=== PATIENT | female | born 1955 | race Hispanic/Latino ===

== ENCOUNTER 2021-02-07 17:39 | Emergency (ER) | payer OTHER ==
--- OUTSIDE RECORDS SUMMARY | 2021-02-07 17:51 | XMS REPORT | Continuity of Care Document ---
:1955 Author Organization [facility] t Address [address] [place] [address] Care Team Providers Name Role Phone Cyrus KAUR Attending Clinician Unknown Attending Clinician Unavailable Otis KAUR Attending Clinician UNKNOWN Attending Clinician Unavailable [facility] Attending Clinician Unavailable Antoinette Herrera MD Attending Clinician Antoinette HERRERA Attending Clinician Unavailable Doctor Unassigned, Name Attending Clinician Unavailable Kaleigh Simmons MD Attending Clinician Kaleigh SIMMONS Attending Clinician Unavailable Francois Eller MD Attending Clinician Catrett ACNP Attending Clinician CATRETT Attending Clinician Unavailable Omar Attending Clinician Rozina Hernandes Attending Clinician Magali KAUR Attending Clinician Beth KAUR Attending Clinician Poornima Andres MD Attending Clinician Shania MORSE Attending Clinician Unavailable JAGUAR Attending Clinician Unavailable TONI Attending Clinician Unavailable TONI Attending Clinician Unavailable Destiny MILLER Attending Clinician Unavailable Francois GIBBONS Attending Clinician Unavailable WOODROW NEWMAN Attending Clinician Unavailable Magali KAUR Admitting Clinician EMERGENCY ROOM Admitting Clinician Unavailable Payers Payer Name Policy Type Policy Number Effective Date Expiration Date [facility] [id number] 2020 (MEDICARE 00:00:00 REPLACEMENT HMO) Problems Condition Condition Condition Status Onset Resolution Last Treating Co mments Source Name Details Category Date Date Treatment Clinician Date Empyema of Empyema of Disease Active 2020-0 U nivers lung lung 8-16 ity of 00:00: Medical Branch Lung Lung Disease Active 2020- Univers abscess abscess 8-16 ity of 00:00: Medical Branch Poor Poor Disease Active 2020- Univers dentition dentition 8-16 ity of 00:: Medical Branch Cough Cough Disease Active 2020- Univers 8-15 ity of 00:00: Medical Branch Hepatic Hepatic Disease Active 2019- Univers steatosis steatosis 8-15 ity of 00:00: Medical Branch MIHAELA (acute MIHAELA (acute Disease Active 2019- U nivers kidney kidney 8-14 ity of injury) injury) 00:00: 00 Medical Branch Obesity Obesity Disease Active 2019- Univers (BMI (BMI 8-11 ity of 30-39.9) 30-39.9) 00:00: Medical Branch Essential Essential Disease Active Uni vers hypertensi hypertensi 8-11 it y of on on 00:00: Medical Branch Other Other Disease Active Univers hyperlipid hyperlipid 8-11 it y of emia emia 00:00: Medical Branch Type 2 Type 2 Disease Active 2019- Univers diabetes diabetes 8-11 ity of mellitus mellitus 00:00: [place] without without 00 Medical complicati complicati Br anch on, on, without without long-term long-term current current use of use of insulin insulin Pleural Pleural Disease Active Overview: Univ ers effusion effusion 8-10 Added ity of 00:00: automatic [place] 00 ally from Medical request Branch for surgery [id number] 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 [place] [facility] Depression Depression Disease Active 0 U nivers 4-21 ity of 00:00: 00 Medical Branch GERD GERD Disease Active Univers (gastroeso (gastroeso 7-16 it y of phageal phageal 00:00: [place] reflux reflux 00 Medical disease) disease) Branch Allergies, Adverse Reactions, Alerts Allergy Allergy Status Severity Reaction(s) Onset Inactive Treating Comm ents Source Name Type Date Date Clinician Ciproflo Propensi Active Nausea 2020-0 Univer s xacin ty to and/or 8-10 ity of adverse Vomiting 00:00: [place] reaction 00 Medical s Branch CIPROFLO DRUG Active N/V 2020-0 Univers XACIN INGREDI 8-10 ity of 00:00: [place] 00 Medical Branch Red Dye Propensi Active Hives 2007-0 Univers ty to 5-15 ity of adverse 00:00: [place] reaction 00 Medical s Branch RED DYE DRUG Active Hives 2007-0 Univers INGREDI 5-15 ity of 00:00: [place] 00 Medical Branch Iodine Propensi Active Hives 2006-0 Univers ty to 1-12 ity of adverse 00:00: [place] reaction 00 Medical s Branch IODINE DRUG Active Hives 2006-0 Univers INGREDI 1-12 ity of 00:00: [place] 00 Medical Branch Codeine Propensi Active Rash 2006-0 Univers ty to 9-03 ity of adverse 00:00: [place] reaction 00 Medical s Branch Ibuprofe Propensi Active Rash 2006-0 Univer s n ty to 9-03 ity of adverse 00:00: [place] reaction 00 Medical s Branch CODEINE DRUG Active Rash 2006-0 Univers INGREDI 9-03 ity of 00:00: [place] 00 Medical Branch IBUPROFE DRUG Active Rash 2006-0 Univers N INGREDI 9-03 ity of 00:00: [place] 00 Medical [place] Social History Social Habit Start Date Stop Date Quantity Comments Source Sex Assigned At [facility] Exposure to Not sure [place] of SARS-CoV-2 [place] [facility] (event) Branch Tobacco use and 2019-12-31 2019-12-31 Former user Universi ty of exposure 00:00:00 00:00:00 [facility] Tobacco Comment 2019-10-26 2019-10-26 quit 25yrs ago Unive rsity of 00:00:00 00:00:00 [facility] Smoking Status Start Date Stop Date Source Former smoker 2019-12-31 00:00:00 2019-12-31 00:00:[address] [facility] Medications Ordered Filled Start Stop Current Ordering Indication Dosage Frequency Signature Comments Components Source Medication Medication Date Date Medication? Clinician (SIG) Name Name lidocaine 2019-03 1.5mL U nivers PF 2% 0-20 10-20 ity of (XYLOCAINE- 20:45: 20:04 [facility]) 00 :00 Medical injection Branch 1.5 mL lidocaine 2019-03 4mL Un noah PF 2% 0-20 10-20 ity of (XYLOCAINE- 20:45: 20:07 [facility]) 00 :00 Medical injection 4 Branch mL triamcinolo 2019-03 40mg Univers ne 0-20 10-20 ity of acetonide 20:45: 20:09 [place] (KENALOG) 00 :00 Medical injection Branch 40 mg lidocaine 2019-03 1.5mL U nivers PF 2% 0-20 10-20 ity of (XYLOCAINE- 20:45: 20:01 [facility]) 00 :00 Medical injection Branch 1.5 mL lidocaine 2019-03 4mL Un noah PF 2% 0-20 10-20 ity of (XYLOCAINE- 20:45: 20:05 [facility]) 00 :00 Medical injection 4 Branch mL triamcinolo 2019-03 40mg Univers ne 0-20 10-20 ity of acetonide 20:45: 20:08 [place] (KENALOG) 00 :00 Medical injection Branch 40 mg triamcinolo 2019-03 40mg 40 mg, Univers ne 0-20 10-20 Intra-sarina ity of acetonide 20:45: 20:08 [place], [place] (KENALOG) 00 :00 ONCE, 1 Medical injection dose, Tue Branc h 40 mg 10/20/20 at 1545, Routine lidocaine 2019-03 No 4mL 4 mL, U nivers PF 2% 0-20 10-20 Intra-sarina ity of (XYLOCAINE- 20:45: 20:05 [facility] as MPF) 00 :00 ONCE NOW, Medical injection 4 1 dose, Branc h mL 10/20/20 at 1545, Routine lidocaine 2019-03 No 1.5mL 1.5 mL, Univers PF 2% 0-20 10-20 Infiltrati ity of (XYLOCAINE- 20:45: 20:01 [place] [facility] 00 :00 NOW, 1 Medical injection dose, Tue Branc h 1.5 mL 12/31/19 at 1545, Routine triamcinolo 2019-03 No 40mg 40 mg, Univers ne 0-20 10-20 Intra-sarina ity of acetonide 20:45: 20:09 [place] (KENALOG) 00 :00 ONCE, 1 Medical injection dose, Tue Branc h 40 mg 12/31/19 at 1545, Routine lidocaine 2019-03 No 4mL 4 mL, U nivers PF 2% 0-20 10-20 Intra-sarina ity of (XYLOCAINE- 20:45: 20:07 [facility] as MPF) 00 :00 ONCE NOW, Medical injection 4 1 dose, Branc h mL 12/31/19 at 1545, Routine lidocaine 2019-03 No 1.5mL 1.5 mL, Univers PF 2% 0-20 10-20 Infiltrati ity of (XYLOCAINE- 20:45: 20:04 [place], ONCE [place] [facility]) 00 :00 NOW, 1 Medical injection dose, Tue Branc h 1.5 mL 12/31/19 at 1545, Routine lidocaine 2019-03 No 1.5mL U nivers PF 2% 0-20 10-20 ity of (XYLOCAINE- 20:45: 20:04 [facility]) 00 :00 Medical injection Branch 1.5 mL lidocaine 2019-03 No 4mL Un noah PF 2% 0-20 10-20 ity of (XYLOCAINE- 20:45: 20:07 [facility]) 00 :00 Medical injection 4 Branch mL triamcinolo 2019- No 40mg Univers ne 0-20 10-20 ity of acetonide 20:45: 20:09 [place] (KENALOG) 00 :00 Medical injection Branch 40 mg lidocaine 2019-03 No 1.5mL U nivers PF 2% 0-20 10-20 ity of (XYLOCAINE- 20:45: 20:01 [facility]) 00 :00 Medical injection Branch 1.5 mL lidocaine 2019-03 No [id number] 4mL Un noah PF 2% 0-20 10-20 ity of (XYLOCAINE- 20:45: 20:05 [place] MPF) 00 :00 Medical injection 4 Branch mL triamcinolo 2019-03- No 40mg Univers ne 0-20 10-20 ity of acetonide 20:45: 20:08 [place] (KENALOG) 00 :00 Medical injection Branch 40 mg triamcinolo 2019-03- No 40mg 40 mg, Univers ne 0-20 10-20 Intra-sarina ity of acetonide 20:45: 20:08 [place], [place] (KENALOG) 00 :00 ONCE, 1 Medical injection dose, Tue Branc h 40 mg 10/20/20 at 1545, Routine lidocaine 2019-03- No 4mL 4 mL, U nivers PF 2% 0-20 10-20 Intra-sarina ity of (XYLOCAINE- 20:45: 20:05 [facility] as MPF) 00 :00 ONCE NOW, Medical injection 4 1 dose, Branc h mL 12/30/20 at 1545, Routine lidocaine 2019-03- No 1.5mL 1.5 mL, Univers PF 2% 0-20 10-20 Infiltrati ity of (XYLOCAINE- 20:45: 20:01 on, ONCE [place] [facility]) 00 :00 NOW, 1 Medical injection dose, Tue Branc h 1.5 mL //20 at 1545, Routine triamcinolo 2019-03- No 40mg 40 mg, Univers ne 0-20 10-20 Intra-sarina ity of acetonide 20:45: 20:09 [place], [place] (KENALOG) 00 :00 ONCE, 1 Medical injection dose, Tue Branc h 40 mg 10/20/20 at 1545, Routine lidocaine 2019-03- No 4mL 4 mL, U nivers PF 2% 0-20 10-20 Intra-sarina ity of (XYLOCAINE- 20:45: 20:07 [place], [place] as MPF) 00 :00 ONCE NOW, Medical injection 4 1 dose, Branc h mL 10/20/20 at 1545, Routine lidocaine 2019-03- No 1.5mL 1.5 mL, Univers PF 2% 0-20 -20 Infiltrati ity of (XYLOCAINE- 20:45: 20:04 [place], ONCE [place] [facility]) 00 :00 NOW, 1 Medical injection dose, Jose Mcfarlane h 1.5 mL 12/31/19 at 1545, Routine FAMOTIDINE 2019-03 Yes Take by Uni vers 20 MG ORAL 0-06 mouth ity of TAB 14:29: daily. [place] [address] Medical Branch FENOFIBRATE 2019-03 Yes 145mg Take 145 U nivers 160 MG ORAL 0-06 mg by ity of TAB 14:29: mouth at [place] [address] bedtime. Medical Branch simvastatin 2019-03 Yes 40mg Take 40 mg Univers 20 mg 0-06 by mouth ity of tablet 14:29: at [place] [address] bedtime. Medical Branch hydroCHLORO 2019- Yes 25mg Take 25 mg Univers thiazide 25 0-06 by mouth ity of mg tablet 14:29: daily. [place] [address] Medical Branch lisinopril 2019-03 Yes 20mg Take 20 mg U nivers 20 mg 0-06 by mouth ity of tablet 14:29: daily. [place] [address] Medical Branch metformin 2019-03 Yes 500mg Take 500 Uni vers HCl 0-06 mg by ity of (METFORMIN 14:29: [place] 2 [place] 04 (two) Medical times Branch daily with meals. FAMOTIDINE 2019-03 Yes Take by Uni vers 20 MG ORAL 0-06 mouth ity of TAB 14:29: daily. [place] [address] Medical Branch FENOFIBRATE 2019-03 Yes 145mg Take 145 U nivers 160 MG ORAL 0-06 mg by ity of TAB 14:29: mouth at [place] [address] bedtime. Medical Branch simvastatin 2019-03 Yes 40mg Take 40 mg Univers 20 mg 0-06 by mouth ity of tablet 14:29: at [place] [address] bedtime. Medical Branch hydroCHLORO 2019- Yes 25mg Take 25 mg Univers thiazide 25 0-06 by mouth ity of mg tablet 14:29: daily. [address] Branch lisinopril 2019-03 Yes 20mg Take 20 mg U nivers 20 mg 0-06 by mouth ity of tablet 14:29: daily. [address] Branch metformin 2019- Yes 500mg Take 500 Uni vers HCl 0-06 mg by ity of (METFORMIN 14:29: [place] 2 [place] 04 (two) Medical times Branch daily with meals. FAMOTIDINE 2019-03 Yes Take by Uni vers 20 MG ORAL 0-06 mouth ity of TAB 14:29: daily. [place] [address] Medical Branch FENOFIBRATE 2019-03 Yes 145mg Take 145 U nivers 160 MG ORAL 0-06 mg by ity of TAB 14:29: mouth at [place] [address] bedtime. Medical Branch simvastatin 2019- Yes 40mg Take 40 mg Univers 20 mg 0-06 by mouth ity of tablet 14:29: at [place] [address] bedtime. Medical Branch hydroCHLORO 2019- Yes 25mg Take 25 mg Univers thiazide 25 0-06 by mouth ity of mg tablet 14:29: daily. [address] Branch lisinopril 2019-03 Yes 20mg Take 20 mg U nivers 20 mg 0-06 by mouth ity of tablet 14:29: daily. [address] metformin 2019-03 Yes 500mg Take 500 Uni vers HCl 0-06 mg by ity of (METFORMIN 14:29: [place] 2 [place] (two) Medical times [place] daily with meals. FAMOTIDINE 2019-03 Yes Take by Uni vers 20 MG ORAL 0-06 mouth ity of TAB 14:29: daily. [address] FENOFIBRATE 2019-03 Yes 145mg Take 145 U nivers 160 MG ORAL 0-06 mg by ity of TAB 14:29: mouth at [place] [address] bedtime. Medical Branch simvastatin 2019- Yes 40mg Take 40 mg Univers 20 mg 0-06 by mouth ity of tablet 14:29: at [place] [address] bedtime. Medical Branch hydroCHLORO 2019- Yes 25mg Take 25 mg Univers thiazide 25 0-06 by mouth ity of mg tablet 14:29: daily. [address] Branch lisinopril 2019-03 Yes 20mg Take 20 mg U nivers 20 mg 0-06 by mouth ity of tablet 14:29: daily. [address] metformin 2019- Yes 500mg Take 500 Uni vers HCl 0-06 mg by ity of (METFORMIN 14:29: [place] (two) Medical times [place] daily with meals. FAMOTIDINE 2019-03 Yes Take by Uni vers 20 MG ORAL 0-06 mouth ity of TAB 14:29: daily. [address] FENOFIBRATE 2019-03 Yes 145mg Take 145 U nivers 160 MG ORAL 0-06 mg by ity of TAB 14:29: mouth at [place] [address] bedtime. Medical Branch simvastatin 2020- Yes 40mg Take 40 mg Univers 20 mg 0-06 by mouth ity of tablet 14:29: at [place] [address] bedtime. Medical Branch hydroCHLORO 2020- Yes 25mg Take 25 mg Univers thiazide 25 0-06 by mouth ity of mg tablet 14:29: daily. [place] [address] Medical Branch lisinopril 2020- Yes 20mg Take 20 mg U nivers 20 mg 0-06 by mouth ity of tablet 14:29: daily. [place] [address] Medical Branch metformin 2019- Yes 500mg Take 500 Uni vers HCl 0-06 mg by ity of (METFORMIN 14:29: [place] (two) Medical times [place] daily with meals. FAMOTIDINE 2019- Yes Take by Uni vers 20 MG ORAL 0-06 mouth ity of TAB 14:29: daily. [place] [address] Medical Branch FENOFIBRATE 2019- Yes 145mg Take 145 U nivers 160 MG ORAL 0-06 mg by ity of TAB 14:29: mouth at [place] [address] bedtime. Medical Branch simvastatin 2019- Yes 40mg Take 40 mg Univers 20 mg 0-06 by mouth ity of tablet 14:29: at [place] [address] bedtime. Medical Branch hydroCHLORO 2019- Yes 25mg Take 25 mg Univers thiazide 25 0-06 by mouth ity of mg tablet 14:29: daily. [place] [address] Medical Branch lisinopril 2019- Yes 20mg Take 20 mg U nivers 20 mg 0-06 by mouth ity of tablet 14:29: daily. [place] [address] Medical Branch metformin 2020- Yes 500mg Take 500 Uni vers HCl 0-06 mg by ity of (METFORMIN 14:29: [place] 2 [place] (two) Medical times [place] daily with meals. FAMOTIDINE 2019- Yes Take by Uni vers 20 MG ORAL 0-06 mouth ity of TAB 14:29: daily. [place] [address] Medical Branch FENOFIBRATE 2019- Yes 145mg Take 145 U nivers 160 MG ORAL 0-06 mg by ity of TAB 14:29: mouth at [place] [address] bedtime. Medical Branch simvastatin 2020- Yes 40mg Take 40 mg Univers 20 mg 0-06 by mouth ity of tablet 14:29: at [place] [address] bedtime. Medical Branch hydroCHLORO 2020- Yes 25mg Take 25 mg Univers thiazide 25 0-06 by mouth ity of mg tablet 14:29: daily. [address] Branch lisinopril 2019- Yes 20mg Take 20 mg U nivers 20 mg 0-06 by mouth ity of tablet 14:29: daily. [address] metformin 2019-03 Yes 500mg Take 500 Uni vers HCl 0-06 mg by ity of (METFORMIN 14:29: mouth 2 [place] (two) Medical times [place] daily with meals. FAMOTIDINE 2019-03 Yes Take by Uni vers 20 MG ORAL 0-06 mouth ity of TAB 14:29: daily. [address] Branch FENOFIBRATE 2019-03 Yes 145mg Take 145 U nivers 160 MG ORAL 0-06 mg by ity of TAB 14:29: mouth at [place] [address] bedtime. Medical Branch simvastatin 2019- Yes 40mg Take 40 mg Univers 20 mg 0-06 by mouth ity of tablet 14:29: at [place] [address] bedtime. Medical Branch hydroCHLORO 2019- Yes 25mg Take 25 mg Univers thiazide 25 0-06 by mouth ity of mg tablet 14:29: daily. [address] lisinopril 2019-03 Yes 20mg Take 20 mg U nivers 20 mg 0-06 by mouth ity of tablet 14:29: daily. [address] metformin 2019-03 Yes 500mg Take 500 Uni vers HCl 0-06 mg by ity of (METFORMIN 14:29: mouth 2 [place]) (two) Medical times [place] daily with meals. FAMOTIDINE 2019-03 Yes Take by Uni vers 20 MG ORAL 0-06 mouth ity of TAB 14:29: daily. [address] FENOFIBRATE 2019- Yes 145mg Take 145 U nivers 160 MG ORAL 0-06 mg by ity of TAB 14:29: mouth at [place] [address] bedtime. Medical Branch simvastatin 2019- Yes 40mg Take 40 mg Univers 20 mg 0-06 by mouth ity of tablet 14:29: at [place] [address] bedtime. Medical Branch hydroCHLORO 2019- Yes 25mg Take 25 mg Univers thiazide 25 0-06 by mouth ity of mg tablet 14:29: daily. [address] lisinopril 2019- Yes 20mg Take 20 mg U nivers 20 mg 0-06 by mouth ity of tablet 14:29: daily. [place] 04 Medical Branch metformin 2020-1 Yes 500mg Take 500 Uni vers HCl 0-06 mg by ity of (METFORMIN 14:29: mouth 2 [place] 04 (two) Medical times Branch daily with meals. ALLOPURINOL 2020-0 Yes 100mg Take 100 U nivers ORAL 9-04 mg by ity of 18:10: mouth [place] 39 daily. Medical Branch ALLOPURINOL 2020-0 Yes 100mg Take 100 U nivers ORAL 9-04 mg by ity of 18:10: mouth [place] 39 daily. Medical Branch ALLOPURINOL 2020-0 Yes 100mg Take 100 U nivers ORAL 9-04 mg by ity of 18:10: mouth [place] 39 daily. Medical Branch ALLOPURINOL 2020-0 Yes 100mg Take 100 U nivers ORAL 9-04 mg by ity of 18:10: mouth [place] 39 daily. Medical Branch ALLOPURINOL 2020-0 Yes 100mg Take 100 U nivers ORAL 9-04 mg by ity of 18:10: mouth [place] 39 daily. Medical Branch ALLOPURINOL 2020-0 Yes 100mg Take 100 U nivers ORAL 9-04 mg by ity of 18:10: mouth [place] 39 daily. Medical Branch ALLOPURINOL 2020-0 Yes 100mg Take 100 U nivers ORAL 9-04 mg by ity of 18:10: mouth [place] 39 daily. Medical Branch ALLOPURINOL 2020-0 Yes 100mg Take 100 U nivers ORAL 9-04 mg by ity of 18:10: mouth [place] 39 daily. Medical Branch ALLOPURINOL 2020-0 Yes 100mg Take 100 U nivers ORAL 9-04 mg by ity of 18:10: mouth [place] 39 daily. Medical Branch ALLOPURINOL 2020-0 Yes 100mg Take 100 U nivers ORAL 9-04 mg by ity of 18:10: mouth [place] 39 daily. Medical Branch ALLOPURINOL 2020-0 Yes 100mg Take 100 U nivers ORAL 9-04 mg by ity of 18:10: mouth [place] 39 daily. Medical Branch ALLOPURINOL 2020-0 Yes 100mg Take 100 U nivers ORAL 9-04 mg by ity of 18:10: mouth [place] 39 daily. Medical Branch ALLOPURINOL 2020-0 Yes 100mg Take 100 U nivers ORAL 9-04 mg by ity of 18:10: mouth [place] 39 daily. Medical Branch FAMOTIDINE 2020-0 Yes Take by Uni vers 20 MG ORAL 8-22 mouth ity of TAB 23:55: daily. [place] [address] Medical Branch FENOFIBRATE 2020-0 Yes 145mg Take 145 U nivers 160 MG ORAL 8-22 mg by ity of TAB 23:55: mouth at [place] [address] bedtime. Medical Branch ALLOPURINOL 2020-0 Yes 100mg Take 100 U nivers ORAL 8-22 mg by ity of 23:55: mouth [place] [address] daily. Medical Branch simvastatin 2020-0 Yes 40mg Take 40 mg Univers 20 mg 8-22 by mouth ity of tablet 23:55: at [place] [address] bedtime. Medical Branch hydroCHLORO 2020-0 Yes 25mg Take 25 mg Univers thiazide 25 8-22 by mouth ity of mg tablet 23:55: daily. [place] [address] Medical Branch lisinopril 2020-0 Yes 20mg Take 20 mg U nivers 20 mg 8-22 by mouth ity of tablet 23:55: daily. [place] [address] Medical Branch metformin 2020-0 Yes 500mg Take 500 Uni vers HCl 8-22 mg by ity of (METFORMIN 23:55: mouth 2 [place]) (two) Medical times Branch daily with meals. FAMOTIDINE 2020-0 Yes Take by Uni vers 20 MG ORAL 8-22 mouth ity of TAB 23:55: daily. [place] [address] Medical Branch FENOFIBRATE 2020-0 Yes 145mg Take 145 U nivers 160 MG ORAL 8-22 mg by ity of TAB 23:55: mouth at [place] [address] bedtime. Medical Branch ALLOPURINOL 2020-0 Yes 100mg Take 100 U nivers ORAL 8-22 mg by ity of 23:55: mouth [place] [address] daily. Medical Branch simvastatin 2020-0 Yes 40mg Take 40 mg Univers 20 mg 8-22 by mouth ity of tablet 23:55: at [place] [address] bedtime. Medical Branch hydroCHLORO 2020-0 Yes 25mg Take 25 mg Univers thiazide 25 8-22 by mouth ity of mg tablet 23:55: daily. [place] [address] Medical Branch lisinopril 2020-0 Yes 20mg Take 20 mg U nivers 20 mg 8-22 by mouth ity of tablet 23:55: daily. [place] [address] Medical Branch metformin 2020-0 Yes 500mg Take 500 Uni vers HCl 8-22 mg by ity of (METFORMIN 23:55: mouth 2 [place]) (two) Medical times Branch daily with meals. FAMOTIDINE 2020-0 Yes Take by Uni vers 20 MG ORAL 8-22 mouth ity of TAB 23:55: daily. [place] [address] Medical Branch FENOFIBRATE 2020-0 Yes 145mg Take 145 U nivers 160 MG ORAL 8-22 mg by ity of TAB 23:55: mouth at [place] [address] bedtime. Medical Branch ALLOPURINOL 2020-0 Yes 100mg Take 100 U nivers ORAL 8-22 mg by ity of 23:55: mouth [place] [address] daily. Medical Branch simvastatin 2020-0 Yes 40mg Take 40 mg Univers 20 mg 8-22 by mouth ity of tablet 23:55: at [place] [address] bedtime. Medical Branch hydroCHLORO 2020-0 Yes 25mg Take 25 mg Univers thiazide 25 8-22 by mouth ity of mg tablet 23:55: daily. [place] [address] Medical Branch lisinopril 2020-0 Yes 20mg Take 20 mg U nivers 20 mg 8-22 by mouth ity of tablet 23:55: daily. [place] [address] Medical Branch metformin 2020-0 Yes 500mg Take 500 Uni vers HCl 8-22 mg by ity of (METFORMIN 23:55: mouth 2 [place]) (two) Medical times Branch daily with meals. FAMOTIDINE 2020-0 Yes Take by Uni vers 20 MG ORAL 8-22 mouth ity of TAB 23:55: daily. [place] [address] Medical Branch FENOFIBRATE 2020-0 Yes 145mg Take 145 U nivers 160 MG ORAL 8-22 mg by ity of TAB 23:55: mouth at [place] [address] bedtime. Medical Branch ALLOPURINOL 2020-0 Yes 100mg Take 100 U nivers ORAL 8-22 mg by ity of 23:55: mouth [place] [address] daily. Medical Branch simvastatin 2020-0 Yes 40mg Take 40 mg Univers 20 mg 8-22 by mouth ity of tablet 23:55: at [place] [address] bedtime. Medical Branch hydroCHLORO 2020-0 Yes 25mg Take 25 mg Univers thiazide 25 8-22 by mouth ity of mg tablet 23:55: daily. [place] [address] Medical Branch lisinopril 2020-0 Yes 20mg Take 20 mg U nivers 20 mg 8-22 by mouth ity of tablet 23:55: daily. [place] [address] Medical Branch metformin 2020-0 Yes 500mg Take 500 Uni vers HCl 8-22 mg by ity of (METFORMIN 23:55: mouth 2 [place]) (two) Medical times Branch daily with meals. FAMOTIDINE 2020-0 Yes Take by Uni vers 20 MG ORAL 8-22 mouth ity of TAB 23:55: daily. [place] [address] Medical Branch FENOFIBRATE 2020-0 Yes 145mg Take 145 U nivers 160 MG ORAL 8-22 mg by ity of TAB 23:55: mouth at [place] [address] bedtime. Medical Branch FAMOTIDINE 2020-0 Yes Take by Uni vers 20 MG ORAL 8-22 mouth ity of TAB 23:55: daily. [place] [address] Medical Branch FENOFIBRATE 2020-0 Yes 145mg Take 145 U nivers 160 MG ORAL 8-22 mg by ity of TAB 23:55: mouth at [place] [address] bedtime. Medical Branch ALLOPURINOL 2020-0 Yes 100mg Take 100 U nivers ORAL 8-22 mg by ity of 23:55: mouth [place] [address] daily. Medical Branch simvastatin 2020-0 Yes 40mg Take 40 mg Univers 20 mg 8-22 by mouth ity of tablet 23:55: at [place] [address] bedtime. Medical Branch hydroCHLORO 2020-0 Yes 25mg Take 25 mg Univers thiazide 25 8-22 by mouth ity of mg tablet 23:55: daily. [place] [address] Medical Branch lisinopril 2020-0 Yes 20mg Take 20 mg U nivers 20 mg 8-22 by mouth ity of tablet 23:55: daily. [place] [address] Medical Branch metformin 2020-0 Yes 500mg Take 500 Uni vers HCl 8-22 mg by ity of (METFORMIN 23:55: mouth 2 [place]) (two) Medical times Branch daily with meals. FAMOTIDINE 2020-0 Yes Take by Uni vers 20 MG ORAL 8-22 mouth ity of TAB 23:55: daily. [place] [address] Medical Branch FENOFIBRATE 2020-0 Yes 145mg Take 145 U nivers 160 MG ORAL 8-22 mg by ity of TAB 23:55: mouth at [place] [address] bedtime. Medical Branch simvastatin 2020-0 Yes 40mg Take 40 mg Univers 20 mg 8-22 by mouth ity of tablet 23:55: at [place] [address] bedtime. Medical Branch hydroCHLORO 2020-0 Yes 25mg Take 25 mg Univers thiazide 25 8-22 by mouth ity of mg tablet 23:55: daily. [place] [address] Medical Branch lisinopril 2020-0 Yes 20mg Take 20 mg U nivers 20 mg 8-22 by mouth ity of tablet 23:55: daily. [address] metformin 2020-0 Yes 500mg Take 500 Uni vers HCl 8-22 mg by ity of (METFORMIN 23:55: mouth 2 [place]) (two) Medical times Branch daily with meals. ALLOPURINOL 2020-0 Yes 100mg Take 100 U nivers ORAL 8-22 mg by ity of 23:55: mouth [place] [address] daily. Medical Branch simvastatin 2020-0 Yes 40mg Take 40 mg Univers 20 mg 8-22 by mouth ity of tablet 23:55: at [place] [address] bedtime. Medical Branch FAMOTIDINE 2020-0 Yes Take by Uni vers 20 MG ORAL 8-22 mouth ity of TAB 23:55: daily. [address] Branch FENOFIBRATE 2020-0 Yes 145mg Take 145 U nivers 160 MG ORAL 8-22 mg by ity of TAB 23:55: mouth at [place] [address] bedtime. Medical Branch simvastatin 2020-0 Yes 40mg Take 40 mg Univers 20 mg 8-22 by mouth ity of tablet 23:55: at [place] [address] bedtime. Medical Branch hydroCHLORO 2020-0 Yes 25mg Take 25 mg Univers thiazide 25 8-22 by mouth ity of mg tablet 23:55: daily. [address] lisinopril 2020-0 Yes 20mg Take 20 mg U nivers 20 mg 8-22 by mouth ity of tablet 23:55: daily. [address] metformin 2020-0 Yes 500mg Take 500 Uni vers HCl 8-22 mg by ity of (METFORMIN 23:55: mouth [place] ORAL) (two) Medical times Branch daily with meals. hydroCHLORO 2020-0 Yes 25mg Take 25 mg Univers thiazide 25 8-22 by mouth ity of mg tablet 23:55: daily. [address] lisinopril 2020-0 Yes 20mg Take 20 mg U nivers 20 mg 8-22 by mouth ity of tablet 23:55: daily. [address] FAMOTIDINE 2020-0 Yes Take by Uni vers 20 MG ORAL 8-22 mouth ity of TAB 23:55: daily. [address] metformin 2020-0 Yes 500mg Take 500 Uni vers HCl 8-22 mg by ity of (METFORMIN 23:55: mouth [place] ORAL) (two) Medical times Branch daily with meals. FENOFIBRATE 2020-0 Yes 145mg Take 145 U nivers 160 MG ORAL 8-22 mg by ity of TAB 23:55: mouth at [place] [address] bedtime. Medical Branch simvastatin 2020-0 Yes 40mg Take 40 mg Univers 20 mg 8-22 by mouth ity of tablet 23:55: at [place] [address] bedtime. Medical Branch hydroCHLORO 2020-0 Yes 25mg Take 25 mg Univers thiazide 25 8-22 by mouth ity of mg tablet 23:55: daily. [address] Branch lisinopril 2020-0 Yes 20mg Take 20 mg U nivers 20 mg 8-22 by mouth ity of tablet 23:55: daily. [address] Branch metformin 2020-0 Yes 500mg Take 500 Uni vers HCl 8-22 mg by ity of (METFORMIN 23:55: mouth [place] ORAL) (two) Medical times Branch daily with meals. FAMOTIDINE 2020-0 Yes Take by Uni vers 20 MG ORAL 8-22 mouth ity of TAB 23:55: daily. [address] Branch FENOFIBRATE 2020-0 Yes 145mg Take 145 U nivers 160 MG ORAL 8-22 mg by ity of TAB 23:55: mouth at [place] [address] bedtime. Medical Branch simvastatin 2020-0 Yes 40mg Take 40 mg Univers 20 mg 8-22 by mouth ity of tablet 23:55: at [place] [address] bedtime. Medical Branch hydroCHLORO 2020-0 Yes 25mg Take 25 mg Univers thiazide 25 8-22 by mouth ity of mg tablet 23:55: daily. [address] lisinopril 2020-0 Yes 20mg Take 20 mg U nivers 20 mg 8-22 by mouth ity of tablet 23:55: daily. [address] metformin 2020-0 Yes 500mg Take 500 Uni vers HCl 8-22 mg by ity of (METFORMIN 23:55: mouth [place] ORAL) (two) Medical times Branch daily with meals. amoxicillin 2020-0 2020- No [id number] 1{tbl} Take 1 Univers -clavulanat 8-22 -06 tablet by it y of e 875-125 00:00: 04:59 mouth [place] mg per 00 :00 every 12 Medical tablet (twelve) Branch hours for 14 days. amoxicillin 2020-0 2020- No [id number] 1{tbl} Take 1 Univers -clavulanat 8-22 09-06 tablet by it y of e 875-125 00:00: 04:59 mouth [place] mg per 00 :00 every 12 Medical tablet (twelve) Branch hours for 14 days. amoxicillin 2020-0 2020- No [id number] 1{tbl} Take 1 Univers -clavulanat 8-22 09-06 tablet by it y of e 875-125 00:00: 04:59 mouth [place] mg per 00 :00 every 12 Medical tablet (twelve) Branch hours for 14 days. amoxicillin 2020-0 2020- No [id number] 1{tbl} Take 1 Univers -clavulanat 8- 09-06 tablet by it y of e 875-125 00:00: 04:59 mouth [place] mg per 00 :00 every 12 Medical tablet (twelve) Branch hours for 14 days. amoxicillin 2020-0 2020- No [id number] 1{tbl} Take 1 Univers -clavulanat 8- 09-06 tablet by it y of e 875-125 00:00: 04:59 mouth [place] mg per 00 :00 every 12 Medical tablet (twelve) Branch hours for 14 days. amoxicillin 2020-0 2020- No [id number] 1{tbl} Take 1 Univers -clavulanat 8- 09-06 tablet by it y of e 875-125 00:00: 04:59 mouth [place] mg per 00 :00 every 12 Medical tablet (twelve) Branch hours for 14 days. amoxicillin 2020-0 2020- No [id number] 1{tbl} Take 1 Univers -clavulanat 8-02 12-06 tablet by it y of e 875-125 00:00: 04:59 mouth [place] mg per 00 :00 every 12 Medical tablet (twelve) Branch hours for 14 days. amoxicillin 2020-0 2020- No [id number] 1{tbl} Take 1 Univers -clavulanat 8- 09-06 tablet by it y of e 875-125 00:00: 04:59 mouth [place] mg per 00 :00 every 12 Medical tablet (twelve) Branch hours for 14 days. amoxicillin 2020-0 2020- No [id number] 1{tbl} Take 1 Univers -clavulanat 8-22 09-06 tablet by it y of e 875-125 00:00: 04:59 mouth [place] mg per 00 :00 every 12 Medical tablet (twelve) Branch hours for 14 days. amoxicillin 2020-0 Yes 1{tbl} 1 tablet, Univers -clavulanat 8-20 Oral, ity of e 18:15: Q12H, [place] (AUGMENTIN) 00 First dose Me dical 875-125 mg on [facility] per tablet 10/31/19 at 1 tablet 1315, Until Discontinu ed, Routine
Reason for Anti-Infec tive: Documented Infection< br>Documen mary kay Infection Site: Other
O ther site: lung
Du ration of Therapy: 7 days lisinopriL 2020-0 Yes 20mg 20 mg, Unive rs (PRINIVIL,Z 8-20 Oral, ity of ESTRIL) 14:00: DAILY, [place] tablet 20 00 First dose Medi heri mg on [place] Branch 10/31/19 at 0900, Until Discontinu ed, Routine simvastatin 2020-0 Yes 20mg 20 mg, Univ ers (ZOCOR) 8-20 Oral, QHS, ity of tablet 20 02:00: First dose [place] mg 00 on Mon Medical 10/30/19 at Branch 2100, Until Discontinu ed, Routine Polyethylen 2020-0 Yes 17g 17 g, Unive rs e Glycol 8-20 Oral, BID, ity o f 3350 01:00: First dose [place] (MIRALAX) 00 on Mon Medical powder 17 g 10/30/19 at Br anch 2000, Until Discontinu ed, Routine metFORMIN 2020-0 Yes 500mg 500 mg, Univ ers (GLUCOPHAGE 8-19 Oral, BID ity of ) tablet 22:00: MEALS, [place] 500 mg 00 First dose Medical on Mon Branch 10/30/19 at 1700, Until Discontinu ed, Routine cyclobenzap 2020-0 Yes 5mg 5 mg, Unive rs rine 8-19 Oral, TID, ity of (FLEXERIL) 19:00: First dose [place] tablet 5 mg 00 on Mon Medica l 10/30/19 at Branch 1400, Until Discontinu ed, Routine hydroCHLORO 2020-0 Yes 25mg 25 mg, Univ ers thiazide 8-19 Oral, ity of (ESIDRIX) 16:15: DAILY, [place] capsule 25 00 First dose Med ical mg on Mon Branch 10/30/19 at 1115, Until Discontinu ed, Routine allopurinoL 2020-0 Yes 100mg 100 mg, Un noah (ZYLOPRIM) 10-29 Oral, ity of tablet 100 16:15: DAILY, [place] mg 00 First dose Medical on Mon Branch 10/30/19 at 1115, Until Discontinu ed, Routine acetaminoph 2020-0 Yes 650mg 650 mg, Un noah en 10-29 Oral, ity of (TYLENOL) 15:53: Q6HPRN, [place] tablet 650 09 Starting Medic al mg Mon Branch 10/30/19 at 1053, Until Discontinu ed, Routine, Pain (scale 1-3) HYDROcodone 2020-0 Yes 1{tbl} 1 tablet, Univers -acetaminop 10-29 Oral, ity of hen (NORCO 15:52: Q6HPRN, [place] 5) 5-325 mg 56 Starting Medi heri tablet 1 Mon tablet 10/30/19 at 1052, Until Discontinu ed, Routine, Pain (scale 7-10) KCL 2019-0 2020- No 30meq 30 mEq, IV Unive rs (POTASSIUM 10-29 Piggyback, it y of CHLORIDE) 08:00: 10:05 ONCE, 1 [place] 30 mEq in 00 :00 dose, Wed Medic al NaCl 0.9% 10/30/19 at Bran ch (NS) 0300, 250 piggyback mL piperacilli 2019-0 2020- No 3.375g 3.375 g, Univers n-tazobacta 10-28 IV ity of m (ZOSYN) 16:45: 18:05 Piggyback, [place] 3.375 g in 00 :17 Q6H ABX, Medic al NaCl 0.9% First dose Bran ch (NS) 100 mL on Mon MINI-BAG 10/29/19 at 1145, Until Discontinu ed, 100 mL
R rafael for Anti-Infec tive: Documented Infection< br>Documen mary kay Infection Site: Respirator y
Durat ion of Therapy: 10 days enoxaparin 2020-0 Yes 40mg 40 mg, Unive rs (LOVENOX) 10-28 Subcutaneo ity of injection 14:00: [place], DAILY, [place] 40 mg 00 First dose Medical on Mon Branch 10/29/19 at 0900, Until Discontinu ed, Routine sennosides 2020-0 Yes 8.6mg 8.6 mg, Uni vers (SENOKOT) 10-28 Oral, ity of tablet 8.6 14:00: DAILY, [place] mg 00 First dose Medical on [facility] 10/29/19 at 0900, Until Discontinu ed, Routine docusate 2020-0 Yes 100mg 100 mg, Unive rs (COLACE) 10-28 Oral, ity of capsule 100 14:00: DAILY, [place] mg 00 First dose Medical on [facility] 10/29/19 at 0900, Until Discontinu ed, Routine Sliding 2020-0 2020- No Subcutaneo Uni vers Scale 10-28 us, TID ity of Insulin - 13:00: 16:12 MEALS+HS, [place] Aspart 00 :15 First dose Medical (NOVOLOG) + on [facility] Fsbg 10/29/19 at Testing 0800, Until Discontinu ed, Routine FENTanyl 2019-0 2020- No 150ug 150 mcg, Uni vers HOSE SPRAYER (5 10-27 Intravenou ity of mcg/mL NS) 22:00: 15:53 s, 30 mL, [place] 00 :26 CONTINUOUS Medical , Starting Branch Mon10/28/19 at 1700, Until 10/30/19 at 1053 ondansetron 2020-0 Yes 4mg 4 mg, Slow Univers (ZOFRAN 10-27 IV Push, ity of (PF)) 21:45: Q6HPRN, [place] injection 4 31 Starting Medi heri mg [facility] 10/28/19 at 1645, Until Discontinu ed, REA, Nausea and Vomiting (N/V) diphenhydrA 2020-0 Yes 25mg 25 mg, Univ ers MINE 10-27 Oral, ity of (BENADRYL) 21:45: Q4HPRN, [place] tablet 25 30 Starting Medica l mg [facility] 10/28/19 at 1645, Until Discontinu ed, Routine, Itching naloxone 2020-0 Yes .1mg 0.1 mg, Univer s (NARCAN) 10-27 Slow IV ity of injection 21:45: Push, [place] 0.1 mg 30 SEE-INSTRU Medical CTIONS, Branch Starting 10/28/19 at 1645, Until Discontinu ed, Routine FENTanyl 2020-0 Yes Slow IV Univer s (SUBLIMAZE) 10-27 Push, ity of 50 mcg/mL 21:45: Routine [place] Load & 30 Medical Rescue dose [place] albuterol 2019- No 2.5mg 2.5 mg, Uni vers (PROVENTIL) 10-27 Inhalation i ty of 2.5 mg /3 21:30: 20:30 , ONCE, 1 [place] mL (0.083 00 :00 dose, Mon Medic al %) 10/28/19 at [place] nebulizer 1630, solution Routine 2.5 mg lactated 2019- No 1000mL at 42 Unive rs ringers IV 10-27 mL/hr, ity of infusion 20:45: 16:12 1,000 mL, [place] 1,000 mL 00 :15 IV Medical Infusion, Branch CONTINUOUS , Starting 10/28/19 at 1545, Until 10/30/19 at 1112, Routine, PACU ondansetron 2019- No 4mg 4 mg, Slow Univers (ZOFRAN 10-27 IV Push, ity of (PF)) 20:30: 20:30 PRN, 1 [place] injection 4 20 :00 dose, Medical mg Starting Branch 10/28/19 at 1530, Until Mon10/28/19 at 1530, Routine, Nausea and Vomiting (N/V), PACU FENTanyl PF 2019- No 25ug 25 mcg, Un noah (SUBLIMAZE 10-27 Slow IV ity o f (PF)) 20:30: 21:40 Push, [place] injection 19 :06 Q5MIN PRN, Medi heri 25 mcg 4 doses, Branch Starting 10/28/19 at 1530, Until 10/28/19 at 1640, Routine, Pain (scale 4-6), PACU bupivacaine 2019-2019- No ONCE INTRA Univers (preserv 10-27 PROCEDURE, ity of free) 19:53: 20:18 Starting [place] (SENSORCAIN 00 :47 Mon Medical E MPF) 0.25 10/28/19 at Br anch % (2.5 1453, mg/mL) Until Mon injection 10/28/19 at 1518, Routine, Intra-op sugammadex 2019-0 2020- No IV Push, Un noah (BRIDION) 10-27 ONCE INTRA ity of injection 19:49: 20:18 PROCEDURE, [place] 00 :47 Starting Medical [facility] 10/28/19 at 1449, Until [facility] 10/28/19 at 1518, Routine, Intra-op HYDROmorphO 2020-0 2020- No ONCE INTRA Univers ne 10-27 PROCEDURE, ity of (DILAUDID) 19:10: 20:18 [place] injection 00 :47 [facility] Medical 10/28/19 at Branch 1410, Until Discontinu ed, Routine, Intra-op acetaminoph 2020-0 2020- No IV Unive rs en ADULT 10-27 Infusion, ity o f (OFIRMEV) 19:09: 20:18 Administer [place] injection 00 :47 over 15 Medical Minutes, Branch ONCE INTRA PROCEDURE, Starting [facility] 10/28/19 at 1409, Until Discontinu ed, Routine, Intra-op ondansetron 2019-0 2020- No Slow IV Un noah (ZOFRAN 10-27 Push, ONCE ity o f (PF)) 19:09: 20:18 INTRA [place] injection 00 :47 PROCEDURE, Medi heri Starting Branch [facility] 10/28/19 at 1409, Until Discontinu ed, Routine, Intra-op calcium 2020-0 2020- No ONCE INTRA Uni vers chloride 10-27 PROCEDURE, ity of 100 mg/mL 18:41: 20:18 Starting [place] (10 %) 00 :47 Mon Medical syringe 10/28/19 at Branch 1341, Until Discontinu ed, Routine, Intra-op PHENYLephri 2020-0 2020- No CONTINUOUS Univers ne 1000 10-27 PRN, ity of mcg/10 mL 17:55: 20:18 Starting [place] in 0.9% 00 :47 Mon Medical NaCl 10/28/19 at Branch syringe 1255, Until Discontinu ed, Routine, Intra-op dexamethaso 2020-0 2020- No IV Push, U nivers ne 10-27 ONCE INTRA ity of (DECADRON 17:15: 20:18 PROCEDURE, [place] PHOSPHATE) 00 :47 Starting Medic al injection [facility] 10/28/19 at 1215, Until Discontinu ed, Routine, Intra-op albuterol 2020-0 2020- No 2.5mg 2.5 mg, Uni vers (PROVENTIL) 10-27 Inhalation i ty of 2.5 mg /3 17:15: 16:20 , ONCE, 1 [place] mL (0.083 00 :00 dose, [facility] Medic al %) 10/28/19 at [place] nebulizer 1215, solution Routine 2.5 mg phenylephri 2019- No ONCE INTRA Univers ne 10-27 PROCEDURE, ity of (VAZCULEP) 16:49: 20:18 Starting [place] injection 00 :47 [facility] Medical 10/28/19 at Branch 1149, Until Discontinu ed, Routine, Intra-op electrolyte 2019- 2020- No CONTINUOUS Univers -A 10-27 PRN, ity of (PLASMALYTE 16:39: 20:18 Starting [place] -A) IV 00 :47 [facility] Medical infusion 10/28/19 at [facility] h 1139, Until Discontinu ed, Routine, Intra-op rocuronium 2019- No IV Push, Un noah (ZEMURON) 10-27 ONCE INTRA ity of injection 16:36: 20:18 PROCEDURE, [place] 00 :[address] [facility] 10/28/19 at 1136, Until Discontinu ed, Routine, Intra-op propofol IV 2019- No Slow IV Un noah infusion 10-27 Push, ONCE ity of 16:36: 20:18 INTRA [place] 00 :47 PROCEDURE, Medical Starting [facility] 10/28/19 at 1136, Until Discontinu ed, Routine, Intra-op lidocaine 2019-2019- No Slow IV Univ ers 1% 10-27 Push, ONCE ity of (XYLOCAINE) 16:36: 20:18 INTRA [place] 100 mg/10 00 :47 PROCEDURE, Medi heri mL (1 %) Starting [place] injection [facility] 10/28/19 at 1136, Until Discontinu ed, Routine, Intra-op FENTanyl PF 2019-0 2020- No Slow IV Un noah (SUBLIMAZE 10-27 Push, ONCE it y of (PF)) 16:36: 20:18 INTRA [place] injection 00 :47 PROCEDURE, Medi heri Starting [facility] 10/28/19 at 1136, Until Discontinu ed, Routine, Intra-op midazolam 2020-0 2020- No IV Push, Uni vers (VERSED) 10-27 ONCE INTRA ity of injection 16:10: 20:18 PROCEDURE, [place] 00 :47 Starting Medical [facility] 10/28/19 at 1110, Until Discontinu ed, Routine, Intra-op lactated 2020-0 2020- No CONTINUOUS Un noah ringers IV 10-27 PRN, ity of infusion 16:08: 20:18 [place] 00 :47 [facility] 10/28/19 at Branch 1108, Until Discontinu ed, Routine, Intra-op piperacilli 2019-0 2020- No 3.375g 3.375 g, Univers n-tazobacta 10-27 IV ity of m (ZOSYN) 15:15: 19:48 Piggyback, [place] 3.375 g in 00 :18 Q6H ABX, Medic al NaCl 0.9% First dose Bran ch (NS) 100 mL (after MINI-BAG last modificati on) on [facility] 10/28/19 at 1015, Until Discontinu ed, 100 mL
Reas on for Anti-Infec tive: Documented Infection< br>Documen mary kay Infection Site: Respirator y
Durat ion of Therapy: 7 days amLODIPine 2019- 2020- No 5mg 5 mg, Unive rs (NORVASC) 10-26 Oral, ity of tablet 5 mg 14:00: 19:48 DAILY, [place] 00 :18 First dose Medical on [facility] 10/27/19 at 0900, Until Discontinu ed, Routine piperacilli 2019-0 2020- No 2.25g 2.25 g, IV Univers n-tazobacta 10-26 Piggyback, i ty of m (ZOSYN) 03:15: 11:22 Q6H ABX, [place] 2.25 g in 00 :43 First dose Medi heri NaCl 0.9% (after Branch (NS) 100 mL last MINI-BAG modificati on) [facility] at 2215, Until Discontinu ed, 100 mL
Reas on for Anti-Infec tive: Documented Infection< br>Documen mary kay Infection Site: Respirator y
Durat ion of Therapy: 7 days NaCl 0.9% 2020-0 2020- No 1000mL at 50 Univ ers (NS) IV 10-25-17 mL/hr, IV ity of infusion 17:00: 19:48 Infusion, [place] 1,000 mL 00 :18 CONTINUOUS Medic al , Starting Branch 10/26/19 at 1200, Until 10/28/19 at 1448, Routine piperacilli 2020-0 2020- No 2.25g 2.25 g, IV Univers n-tazobacta 10-25 Piggyback, i ty of m (ZOSYN) 15:15: 02:29 Q6H ABX, [place] 2.25 g/50 00 :04 First dose Medi heri mL RTU (after Branch last modificati on) on 10/26/19 at 1015, Until Discontinu ed, 50 mL
Reas on for Anti-Infec tive: Documented Infection< br>Documen mary kay Infection Site: Respirator y
Durat ion of Therapy: 7 days ipratropium 0 2020- No 3mL 3 mL, [facility] ers -albuterol 10-25 Inhalation it y of (DUONEB) 00:00: 23:06 , ONCE [place] 0.5 mg-3 00 :00 NOW, 1 Medical mg(2.5 mg dose, Mon Branc h base)/3 mL 10/25/19 at nebulizer 1900, solution 3 Routine mL colchicine 2019-0 2020- No .6mg 0.6 mg, Uni vers (COLCRYS) 10-24 Oral, ity of tablet 0.6 23:00: 15:38 DAILY, [place] mg 00 :26 First dose Medical on Mon Branch 10/25/19 at 1800, Until Discontinu ed, Routine sodium 2020-0 Yes 650mg 650 mg, Univers bicarbonate 10-24 Oral, QID, it y of (ANTACID 17:45: First dose [place] (SODIUM 00 on Mon Medical BICARBONATE 10/25/19 at Br anch )) tablet 1245, 650 mg Until Discontinu ed, Routine NaCl 0.9% 2020-0 2020- No 1000mL at 100 Uni vers (NS) IV 10-24-15 mL/hr, IV ity of infusion 17:15: 16:58 Infusion, [place] 1,000 mL 00 :04 CONTINUOUS Medic al , Starting Branch Mon10/25/19 at 1215, Until 10/26/19 at 1158, Routine NaCl 0.9% 2019-2019- No 100mL at 75 Unive rs (NS) IV 10-24 mL/hr, IV ity of infusion 16:00: 17:09 Infusion, [place] 100 mL 00 :46 CONTINUOUS Medical , Starting Branch Mon10/25/19 at 1100, Until Mon10/25/19 at 1209, Routine aspirin 2020-0 Yes 325mg 325 mg, Univer s tablet 325 10-24 Oral, ity of mg 15:00: DAILY, [place] 00 First dose Medical (after Branch last reorder) on Mon10/25/19 at 1000, Until Discontinu ed, Routine metoprolol 2019- No 50mg 50 mg, Univ ers tartrate 10-24 Oral, BID, ity of (LOPRESSOR) 13:00: 19:48 First dose [place] tablet 50 00 :18 (after Medical mg last Branch modificati on) on Mon10/25/19 at 0800, Until Discontinu ed, Routine ipratropium 2019- No 3mL 3 mL, Univ ers -albuterol 10-23 Inhalation it y of (DUONEB) 20:30: 22:13 , ONCE [place] 0.5 mg-3 00 :00 NOW, 1 Medical mg(2.5 mg dose, [facility] h base)/3 mL 10/24/19 at nebulizer 1530, solution 3 Routine mL aspirin 2019-0 2020- No 325mg 325 mg, Unive rs tablet 325 10-23 Oral, ity of mg 20:30: 19:55 ONCE, 1 [place] 00 :00 dose, [facility] 10/24/19 at Branch 1530, Routine ketorolac 2019- 2020- No 30mg 30 mg, Unive rs (TORADOL) 10-23 Slow IV ity of injection 14:15: 13:15 Push, [place] 30 mg 00 :00 ONCE, 1 Medical dose, [place] Branch 10/24/19 at 0915, Routine
ensemble member approving Restricted medication : [facility] metoprolol 0 2020- No 25mg 25 mg, Univ ers tartrate 10-23 Oral, BID, ity of (LOPRESSOR) 01:00: 12:28 First dose [place] tablet 25 00 :00 on Mon Medical mg 10/23/19 at Branch 2000, Until Discontinu ed, Routine ketorolac 2019- No 30mg 30 mg, [facility] rs (TORADOL) 10-22 Slow IV ity of injection 22:45: 22:20 Push, [place] 30 mg 00 :00 ONCE, 1 Medical dose, [facility] 10/23/19 at 1745, Routine
ensemble member approving Restricted medication : MEGADC diphenhydrA 2020- No 50mg 50 mg, Uni vers MINE 10-22 Slow IV ity of (BENADRYL) 21:44: 19:48 Push, [place] injection 19 :18 Q6HPRN, Medical 50 mg Starting Branch Mon10/23/19 at 1644, Until [facility] 10/28/19 at 1448, Routine, Itching, Rash fenofibrate 2019- No 134mg 134 mg, U nivers micronized 10-22 Oral, ity of (LOFIBRA) 14:00: 19:48 DAILY, [place] capsule 134 00 :18 First dose Me dical mg on Mon [place] 10/23/19 at 0900, Until Discontinu ed famotidine 2019- No 20mg 20 mg, [facility] ers (PEPCID AC) 10-22 Oral, ity of tablet 20 14:00: 19:48 DAILY, [place] mg 00 :18 First dose Medical on [facility] 10/23/19 at 0900, Until Discontinu ed, Routine allopurinoL 2020- No 100mg 100 mg, U nivers (ZYLOPRIM) 10-22 Oral, ity of tablet 100 14:00: 19:48 DAILY, [place] mg 00 :18 First dose Medical on Mon [place] 10/23/19 at 0900, Until Discontinu ed lisinopril 2020- No 20mg 20 mg, [facility] ers (PRINIVIL,Z 10-22 Oral, ity of ESTRIL) 14:00: 12:27 DAILY, [place] tablet 20 00 :10 First dose Medi heri mg on Mon [place] 10/23/19 at 0900, Until Discontinu ed, Routine hydroCHLORO 2020-0 2020- No 25mg 25 mg, Uni vers thiazide 10-22 Oral, ity of (ESIDRIX) 14:00: 12:27 DAILY, [place] tablet 25 00 :10 First dose Medi heri mg on [facility] 10/23/19 at 0900, Until Discontinu ed, Routine morpHINE 2019-0 2020- No 4mg 4 mg, Slow Un noah injection 4 10-22 IV Push, ity of mg 08:47: 19:48 Q6HPRN, [place] 26 :18 Starting Medical [facility] 10/23/19 at 0347, Until [facility] 10/28/19 at 1448, Routine, Pain (scale 7-10) simvastatin 2019- 2020- No 40mg 40 mg, Uni vers (ZOCOR) 10-22 Oral, QHS, ity o f tablet 40 02:00: 19:48 First dose [place] mg 00 :18 on [facility] 10/22/19 at Branch 2100, Until Discontinu ed, Routine heparin 2020- No 5000U 5,000 Univers (porcine) 10-22 Units, ity of injection 01:00: 19:48 Subcutaneo [place] 5,000 Units 00 :18 us, Q12H, Med ical First dose Branch on [facility] 10/22/19 at 2000, Until Discontinu ed, Routine benzonatate 2019-0 2020- No 100mg 100 mg, U nivers (TESSALON 10-21 Oral, ity of PERLES) 22:29: 19:48 Q6HPRN, [place] capsule 100 53 :18 Starting Medi heri mg [facility] 10/22/19 at 1729, Until Mon10/28/19 at 1448, Routine, Cough ondansetron 2019-0 2020- No 4mg 4 mg, Slow Univers (ZOFRAN 10-21 IV Push, ity of (PF)) 22:18: 19:48 Q6HPRN, [place] injection 4 02 :18 Starting Medi heri mg [facility] 10/22/19 at 1718, Until Mon10/28/19 at 1448, Routine, Nausea and Vomiting (N/V) metFORMIN 2019-0 2020- No 500mg 500 mg, Uni vers (GLUCOPHAGE 10-21 Oral, BID it y of ) tablet 22:00: 17:39 MEALS, [place] 500 mg 00 :55 First dose Medical on [facility] 10/22/19 at 1700, Until Discontinu ed tc 2019- 2020- No 6.9mCi 6.9 Univers 99m-albumin 10-21 millicurie i ty of (DRAXIMAGE 18:00: 18:00 , [place] MAA) 00 :00 Intravenou Medical injection s, ONCE, 1 [facility], Routine FLAGYL 500 2019- 2020- No None Univer s MG ORAL TAB 10-21 Entered ity of 17:04: 00:00 [place] 10 :00 [facility] Branch VYTORIN 2019- 2020- No None Univers 12-20 Entered ity of MG ORAL TAB 17:03: 00:00 [place] 38 :00 [facility] Branch temazepam 2019- 2020- No 15mg 15 mg, Unive rs (RESTORIL) 10-21 Oral, ity of capsule 15 04:13: 19:48 QHSPRN, [place] mg 19 :[address] [facility] 10/21/19 at 2313, Until [facility] 10/28/19 at 1448, Routine, Insomnia ondansetron 2020- No 4mg 4 mg, Slow Univers (ZOFRAN 10-20 IV Push, ity of (PF)) 23:45: 22:43 ONCE, 1 [place] injection 4 00 :00 dose, [facility] Med ical mg 10/21/19 at Branch 1845, REA morpHINE 2019- 2020- No 6mg 6 mg, Slow Un noah injection 6 10-20 IV Push, ity of mg 23:45: 22:43 ONCE, 1 [place] 00 :00 dose, [facility] Medical 10/21/19 at Branch 1845, STAT morpHINE 2019-0 2020- No 4mg 4 mg, Slow Un noah injection 4 10-20 IV Push, ity of mg 23:39: 23:38 Q4HPRN, [place] 42 :[address] [facility] 10/21/19 at 1839, Until [facility] 10/22/19 at 1838, Routine, Pain (scale 7-10) HYDROcodone 2020-0 2020- No 1{tbl} 1 tablet, Univers -acetaminop 10-20 Oral, ity of hen (NORCO 23:39: 23:38 Q6HPRN, [place] as 5) 5-325 mg 36 :36 Starting Medi heri tablet 1 Mon [place] tablet 10/21/19 at 1839, Until 10/23/19 at 1838, Routine, Pain (scale 4-6) acetaminoph 2019-0 2020- No 650mg 650 mg, U nivers en 10-20 Oral, ity of (TYLENOL) 23:39: 19:48 Q6HPRN, [place] tablet 650 35 :18 Starting Medic al mg Mon [place] 10/21/19 at 1839, Until Mon10/28/19 at 1448, Routine, Pain (scale 1-3) NaCl 0.9% 2019- 2020- No 1000mL at 999 Uni vers (NS) bolus 10-20- mL/hr, ity of infusion 19:45: 18:52 1,000 mL, [place] as 1,000 mL 00 :00 IV Medical Infusion, [place] ONCE, 1 dose, 10/21/19 at 1445, STAT cyclobenzap 2019-0 2019- No 10mg 10 mg, Uni vers rine 10-20 Oral, ity of (FLEXERIL) 19:45: 18:52 ONCE, 1 [place] as tablet 10 00 :00 dose, Mon Medic al mg 10/21/19 at Branch 1445, Routine morpHINE 2019- 2020- No 4mg 4 mg, Slow Un noah injection 4 10-20-10 IV Push, ity of mg 19:45: 18:52 ONCE, 1 [place] 00 :00 dose, Mon Medical 10/21/19 at Branch 1445, STAT ondansetron 2019-0 2020- No 4mg 4 mg, Slow Univers (ZOFRAN 10-20- IV Push, ity of (PF)) 19:45: 18:52 ONCE, 1 [place] injection 4 00 :00 dose, Mon Med ical mg 10/21/19 at Branch 1445, REA cyclobenzap 2020-0 Yes 10mg Take 10 mg Univers rine 10 mg 6-17 by mouth 3 ity of tablet 00:00: (three) [place] 00 times Medical daily as Branch needed for Muscle Spasms. cyclobenzap 2020-0 Yes 10mg Take 10 mg Univers rine 10 mg 6-17 by mouth 3 ity of tablet 00:00: (three) [place] 00 times Medical daily as Branch needed for Muscle Spasms. cyclobenzap 2020-0 Yes 10mg Take 10 mg Univers rine 10 mg 6-17 by mouth 3 ity of tablet 00:00: (three) [place] 00 times Medical daily as Branch needed for Muscle Spasms. cyclobenzap 2020-0 Yes 10mg Take 10 mg Univers rine 10 mg 6-17 by mouth 3 ity of tablet 00:00: (three) [place] 00 times Medical daily as Branch needed for Muscle Spasms. cyclobenzap 2020-0 Yes 10mg Take 10 mg Univers rine 10 mg 6-17 by mouth 3 ity of tablet 00:00: (three) [place] 00 times Medical daily as Branch needed for Muscle Spasms. cyclobenzap 2020-0 Yes 10mg Take 10 mg Univers rine 10 mg 6-17 by mouth 3 ity of tablet 00:00: (three) [place] 00 times Medical daily as Branch needed for Muscle Spasms. cyclobenzap 2020-0 Yes 10mg Take 10 mg Univers rine 10 mg 6-17 by mouth 3 ity of tablet 00:00: (three) [place] 00 times Medical daily as Branch needed for Muscle Spasms. cyclobenzap 2020-0 Yes 10mg Take 10 mg Univers rine 10 mg 6-17 by mouth 3 ity of tablet 00:00: (three) [place] 00 times Medical daily as Branch needed for Muscle Spasms. cyclobenzap 2020-0 Yes 10mg Take 10 mg Univers rine 10 mg 6-17 by mouth 3 ity of tablet 00:00: (three) [place] 00 times Medical daily as Branch needed for Muscle Spasms. cyclobenzap 2020-0 Yes 10mg Take 10 mg Univers rine 10 mg 6-17 by mouth 3 ity of tablet 00:00: (three) [place] 00 times Medical daily as Branch needed for Muscle Spasms. cyclobenzap 2020-0 Yes 10mg Take 10 mg Univers rine 10 mg 6-17 by mouth 3 ity of tablet 00:00: (three) [place] 00 times Medical daily as Branch needed for Muscle Spasms. cyclobenzap 2020-0 Yes 10mg Take 10 mg Univers rine 10 mg 6-17 by mouth 3 ity of tablet 00:00: (three) [place] 00 times Medical daily as Branch needed for Muscle Spasms. cyclobenzap 2020-0 Yes 10mg Take 10 mg Univers rine 10 mg 6-17 by mouth 3 ity of tablet 00:00: (three) [place] 00 times Medical daily as Branch needed for Muscle Spasms. cyclobenzap 2020-0 Yes 10mg Take 10 mg Univers rine 10 mg 6-17 by mouth 3 ity of tablet 00:00: (three) [place] 00 times Medical daily as Branch needed for Muscle Spasms. cyclobenzap 2020-0 Yes 10mg Take 10 mg Univers rine 10 mg 6-17 by mouth 3 ity of tablet 00:00: (three) [place] 00 times Medical daily as Branch needed for Muscle Spasms. cyclobenzap 2020-0 Yes 10mg Take 10 mg Univers rine 10 mg 6-17 by mouth 3 ity of tablet 00:00: (three) [place] 00 times Medical daily as Branch needed for Muscle Spasms. cyclobenzap 2020-0 Yes 10mg Take 10 mg Univers rine 10 mg 6-17 by mouth 3 ity of tablet 00:00: (three) [place] 00 times Medical daily as Branch needed for Muscle Spasms. cyclobenzap 2020-0 Yes 10mg Take 10 mg Univers rine 10 mg 6-17 by mouth 3 ity of tablet 00:00: (three) [place] 00 times Medical daily as Branch needed for Muscle Spasms. cyclobenzap 2020-0 Yes 10mg Take 10 mg Univers rine 10 mg 6-17 by mouth 3 ity of tablet 00:00: (three) [place] 00 times Medical daily as Branch needed for Muscle Spasms. hydrocodone 2020- No 1{tbl} Take 1-2 Univers -acetaminop 2-28 08-11 Tabs by ity of hen (NORCO 00:00: 00:00 mouth [place] 5) 5-325 mg 00 :00 every 6 Medic al tablet (six) Branch hours as needed for Pain. HYDROCODONE 2020- No Take one U nivers -ACETAMINOP 5-16 08-11 by mouth ity of HEN 5-325 00:00: 00:00 every 4 to [place] MG ORAL TAB 00 :00 6 hours Medic al as needed Branch for pain. CLINDAMYCIN 2019- No 1 tab Q 6h Univers HCL 300 MG -16 10-21 ity of ORAL CAP 00:00: 00:00 [place] 00 :00 Medical Branch VALE-N 2019- No Take one Un noah 50 50-325 10-21 pill every ity of MG ORAL TAB 00:00: 00:00 4 hours as [place] 00 :00 needed for Medical pain Branch Immunizations Ordered Filled Immunization Date Status Comments [facility] e Immunization Name Name Influenza Virus 2019-12-17 Completed Universit y of Vaccine Quad .5 mL 00:00:00 [place] [facility] IM 6+ MO Branch Influenza Virus 2019-12-17 Completed Universit y of Vaccine Quad .5 mL 00:00:00 [place] [facility] IM 6+ MO Branch Influenza Virus 2019-12-17 Completed Universit y of Vaccine Quad .5 mL 00:00:00 [place] [facility] IM 6+ MO Branch Influenza Virus 2019-12-17 Completed Universit y of Vaccine Quad .5 mL 00:00:00 [place] [facility] IM 6+ MO Branch Influenza Virus 2019-12-17 Completed Universit y of Vaccine Quad .5 mL 00:00:00 [place] [facility] IM 6+ MO Branch Influenza Virus 2019-12-17 Completed Universit y of Vaccine Quad .5 mL 00:00:00 [place] [facility] IM 6+ MO Branch Influenza Virus 2019-12-17 Completed Universit y of Vaccine Quad .5 mL 00:00:00 [place] [facility] IM 6+ MO Branch Influenza Virus 2019-12-17 Completed Universit y of Vaccine Quad .5 mL 00:00:00 [place] [facility] IM 6+ MO Branch Influenza Virus 2019-12-17 Completed Universit y of Vaccine Quad .5 mL 00:00:00 [place] [facility] IM 6+ MO Branch Influenza Virus 2019-02-01 Completed Universit y of Vaccine Quad IM 00:00:00 [place] [facility] ical Multi-dose 6+ MO Branch Influenza Virus 2019-02-01 Completed Universit y of Vaccine Quad IM 00:00:00 [place] [facility] ical Multi-dose 6+ MO Branch Influenza Virus 2019-02-01 Completed Universit y of Vaccine Quad IM 00:00:00 [place] [facility] ical Multi-dose 6+ MO Branch Influenza Virus 2019-02-01 Completed Universit y of Vaccine Quad IM 00:00:00 [place] [facility] ical Multi-dose 6+ MO Branch Influenza Virus 2019-02-01 Completed Universit y of Vaccine Quad IM 00:00:00 [place] [facility] ical Multi-dose 6+ MO Branch Influenza Virus 2019-02-01 Completed Universit y of Vaccine Quad IM 00:00:00 [place] [facility] ical Multi-dose 6+ MO Branch Influenza Virus 2019-02-01 Completed Universit y of Vaccine Quad IM 00:00:00 [place] [facility] ical Multi-dose 6+ MO Branch Influenza Virus 2019-02-01 Completed Universit y of Vaccine Quad IM 00:00:00 [place] [facility] ical Multi-dose 6+ MO Branch Influenza Virus 2019-02-01 Completed Universit y of Vaccine Quad IM 00:00:00 [place] [facility] ical Multi-dose 6+ MO Branch Influenza Virus 2019-02-01 Completed Universit y of Vaccine Quad IM 00:00:00 [place] [facility] ical Multi-dose 6+ MO Branch Influenza Virus 2019-02-01 Completed Universit y of Vaccine Quad IM 00:00:00 [place] [facility] ical Multi-dose 6+ MO Branch Influenza Virus 2019-02-01 Completed Universit y of Vaccine Quad IM 00:00:00 [place] [facility] ical Multi-dose 6+ MO Branch Influenza Virus 2019-02-01 Completed Universit y of Vaccine Quad IM 00:00:00 [place] [facility] ical Multi-dose 6+ MO Branch Influenza Virus 2019-02-01 Completed Universit y of Vaccine Quad IM 00:00:00 [place] [facility] ical Multi-dose 6+ MO Branch Influenza Virus 2019-02-01 Completed Universit y of Vaccine Quad IM 00:00:00 [place] [facility] ical Multi-dose 6+ MO Branch Influenza Virus 2019-02-01 Completed Universit y of Vaccine Quad IM 00:00:00 [place] [facility] ical Multi-dose 6+ MO Branch Influenza Virus 2019-02-01 Completed Universit y of Vaccine Quad IM 00:00:00 [place] [facility] ical Multi-dose 6+ MO Branch Influenza Virus 2019-02-01 Completed Universit y of Vaccine Quad IM 00:00:00 [place] [facility] ical Multi-dose 6+ MO Branch Influenza Virus 2019-02-01 Completed Universit y of Vaccine Quad IM 00:00:00 [place] [facility] ical Multi-dose 6+ MO Branch TDAP 2018-07-11 Completed University of 00:00:00 [facility] TDAP 2018-07-11 Completed University of 00:00:00 [facility] TDAP 2018-07-11 Completed University of 00:00:00 [facility] Branch TDAP 2018-07-11 Completed University of 00:00:00 [place] [facility] TDAP 2018-07-11 Completed University of 00:00:00 [place] [facility] TDAP 2018-07-11 Completed University of 00:00:00 [place] [facility] TDAP 2018-07-11 Completed University of 00:00:00 [facility] Branch TDAP 2018-07-11 Completed University of 00:00:00 [place] [facility] TDAP 2018-07-11 Completed University of 00:00:00 [place] [facility] TDAP 2018-07-11 Completed University of 00:00:00 [facility] Branch TDAP 2018-07-11 Completed University of 00:00:00 [facility] Branch TDAP 2018-07-11 Completed University of 00:00:00 [place] [facility] TDAP 2018-07-11 Completed University of 00:00:00 [facility] Branch TDAP 2018-07-11 Completed University of 00:00:00 [facility] Branch TDAP 2018-07-11 Completed University of 00:00:00 [facility] Branch TDAP 2018-07-11 Completed University of 00:00:00 [facility] Branch TDAP 2018-07-11 Completed University of 00:00:00 [facility] Branch TDAP 2018-07-11 Completed University of 00:00:00 [facility] Branch TDAP 2018-07-11 Completed University of 00:00:00 [facility] Influenza Virus 2018-03-02 Completed Universit y of Vaccine 00:00:00 [facility] Influenza Virus 2018-03-02 Completed Universit y of Vaccine 00:00:00 [facility] Influenza Virus 2018-03-02 Completed Universit y of Vaccine 00:00:00 [facility] Influenza Virus 2018-03-02 Completed Universit y of Vaccine 00:00:00 [facility] Influenza Virus 2018-03-02 Completed Universit y of Vaccine 00:00:00 [facility] Influenza Virus 2018-03-02 Completed Universit y of Vaccine 00:00:00 [facility] Influenza Virus 2018-03-02 Completed Universit y of Vaccine 00:00:00 [facility] Influenza Virus 2018-03-02 Completed Universit y of Vaccine 00:00:00 [facility] Influenza Virus 2018-03-02 Completed Universit y of Vaccine 00:00:00 [facility] Influenza Virus 2018-03-02 Completed Universit y of Vaccine 00:00:00 [facility] Influenza Virus 2018-03-02 Completed Universit y of Vaccine 00:00:00 [facility] Influenza Virus 2018-03-02 Completed Universit y of Vaccine 00:00:00 [facility] Influenza Virus 2018-03-02 Completed Universit y of Vaccine 00:00:00 [facility] Influenza Virus 2018-03-02 Completed Universit y of Vaccine 00:00:00 [facility] Influenza Virus 2018-03-02 Completed Universit y of Vaccine 00:00:00 [facility] Influenza Virus 2018-03-02 Completed Universit y of Vaccine 00:00:00 [facility] Influenza Virus 2018-03-02 Completed Universit y of Vaccine 00:00:00 [facility] Influenza Virus 2018-03-02 Completed Universit y of Vaccine 00:00:00 [facility] Influenza Virus 2018-03-02 Completed Universit y of Vaccine 00:00:00 [facility] Influenza Virus 2017-01-05 Completed Universit y of Vaccine (3+ yrs) 00:00:00 [facility] Influenza Virus 2017-01-05 Completed Universit y of Vaccine (3+ yrs) 00:00:00 [facility] Influenza Virus 2017-01-05 Completed Universit y of Vaccine (3+ yrs) 00:00:00 [facility] Influenza Virus 2017-01-05 Completed Universit y of Vaccine (3+ yrs) 00:00:00 [facility] Influenza Virus 2017-01-05 Completed Universit y of Vaccine (3+ yrs) 00:00:00 [facility] Influenza Virus 2017-01-05 Completed Universit y of Vaccine (3+ yrs) 00:00:00 [facility] Influenza Virus 2017-01-05 Completed Universit y of Vaccine (3+ yrs) 00:00:00 [facility] Influenza Virus 2017-01-05 Completed Universit y of Vaccine (3+ yrs) 00:00:00 [facility] Influenza Virus 2017-01-05 Completed Universit y of Vaccine (3+ yrs) 00:00:00 [facility] Influenza Virus 2017-01-05 Completed Universit y of Vaccine (3+ yrs) 00:00:00 [facility] Influenza Virus 2017-01-05 Completed Universit y of Vaccine (3+ yrs) 00:00:00 [facility] Influenza Virus 2017-01-05 Completed Universit y of Vaccine (3+ yrs) 00:00:00 [facility] Influenza Virus 2017-01-05 Completed Universit y of Vaccine (3+ yrs) 00:00:00 [facility] Influenza Virus 2017-01-05 Completed Universit y of Vaccine (3+ yrs) 00:00:00 [facility] Influenza Virus 2017-01-05 Completed Universit y of Vaccine (3+ yrs) 00:00:00 [facility] Influenza Virus 2017-01-05 Completed Universit y of Vaccine (3+ yrs) 00:00:00 [facility] Influenza Virus 2017-01-05 Completed Universit y of Vaccine (3+ yrs) 00:00:00 [facility] Influenza Virus 2017-01-05 Completed Universit y of Vaccine (3+ yrs) 00:00:00 [facility] Influenza Virus 2017-01-05 Completed Universit y of Vaccine (3+ yrs) 00:00:00 [facility] Pneumococcal 2016-05-10 Completed University o f Polysaccharide, 00:00:00 [place] [facility] ical PPSV23 (PNEUMOVAX) Branch Pneumococcal 2016-05-10 Completed University o f Polysaccharide, 00:00:00 [place] [facility] ical PPSV23 (PNEUMOVAX) Branch Pneumococcal 2016-05-10 Completed University o f Polysaccharide, 00:00:00 [place] [facility] ical PPSV23 (PNEUMOVAX) Branch Pneumococcal 2016-05-10 Completed University o f Polysaccharide, 00:00:00 [place] [facility] ical PPSV23 (PNEUMOVAX) Branch Pneumococcal 2016-05-10 Completed University o f Polysaccharide, 00:00:00 [place] [facility] ical PPSV23 (PNEUMOVAX) Branch Pneumococcal 2016-05-10 Completed University o f Polysaccharide, 00:00:00 [place] [facility] ical PPSV23 (PNEUMOVAX) Branch Pneumococcal 2016-05-10 Completed University o f Polysaccharide, 00:00:00 [place] [facility] ical PPSV23 (PNEUMOVAX) Branch Pneumococcal 2016-05-10 Completed University o f Polysaccharide, 00:00:00 [place] [facility] ical PPSV23 (PNEUMOVAX) Branch Pneumococcal 2016-05-10 Completed University o f Polysaccharide, 00:00:00 [place] [facility] ical PPSV23 (PNEUMOVAX) Branch Pneumococcal 2016-05-10 Completed University o f Polysaccharide, 00:00:00 [place] [facility] ical PPSV23 (PNEUMOVAX) Branch Pneumococcal 2016-05-10 Completed University o f Polysaccharide, 00:00:00 [place] [facility] ical PPSV23 (PNEUMOVAX) Branch Pneumococcal 2016-05-10 Completed University o f Polysaccharide, 00:00:00 [place] [facility] ical PPSV23 (PNEUMOVAX) Branch Pneumococcal 2016-05-10 Completed University o f Polysaccharide, 00:00:00 [place] [facility] ical PPSV23 (PNEUMOVAX) Branch Pneumococcal 2016-05-10 Completed University o f Polysaccharide, 00:00:00 [place] [facility] ical PPSV23 (PNEUMOVAX) Branch Pneumococcal 2016-05-10 Completed University o f Polysaccharide, 00:00:00 [place] [facility] ical PPSV23 (PNEUMOVAX) Branch Pneumococcal 2016-05-10 Completed University o f Polysaccharide, 00:00:00 [place] [facility] ical PPSV23 (PNEUMOVAX) Branch Pneumococcal 2016-05-10 Completed University o f Polysaccharide, 00:00:00 [place] [facility] ical PPSV23 (PNEUMOVAX) Branch Pneumococcal 2016-05-10 Completed University o f Polysaccharide, 00:00:00 [place] [facility] ical PPSV23 (PNEUMOVAX) Branch Pneumococcal 2016-05-10 Completed University o f Polysaccharide, 00:00:00 [place] [facility] ical PPSV23 (PNEUMOVAX) Branch Influenza Virus 2015-12-23 Completed Universit y of Vaccine 00:00:00 [facility] Influenza Virus 2015-12-23 Completed Universit y of Vaccine 00:00:00 [facility] Influenza Virus 2015-12-23 Completed Universit y of Vaccine 00:00:00 [facility] Influenza Virus 2015-12-23 Completed Universit y of Vaccine 00:00:00 [facility] Influenza Virus 2015-12-23 Completed Universit y of Vaccine 00:00:00 [facility] Influenza Virus 2015-12-23 Completed Universit y of Vaccine 00:00:00 [facility] Influenza Virus 2015-12-23 Completed Universit y of Vaccine 00:00:00 [facility] Influenza Virus 2015-12-23 Completed Universit y of Vaccine 00:00:00 [facility] Influenza Virus 2015-12-23 Completed Universit y of Vaccine 00:00:00 [facility] Influenza Virus 2015-12-23 Completed Universit y of Vaccine 00:00:00 [facility] Influenza Virus 2015-12-23 Completed Universit y of Vaccine 00:00:00 [facility] Influenza Virus 2015-12-23 Completed Universit y of Vaccine 00:00:00 [facility] Influenza Virus 2015-12-23 Completed Universit y of Vaccine 00:00:00 [facility] Influenza Virus 2015-12-23 Completed Universit y of Vaccine 00:00:00 [facility] Influenza Virus 2015-12-23 Completed Universit y of Vaccine 00:00:00 [facility] Influenza Virus 2015-12-23 Completed Universit y of Vaccine 00:00:00 [facility] Influenza Virus 2015-12-23 Completed Universit y of Vaccine 00:00:00 [facility] Influenza Virus 2015-12-23 Completed Universit y of Vaccine 00:00:00 [facility] Influenza Virus 2015-12-23 Completed Universit y of Vaccine 00:00:00 [facility] Influenza Virus 2015-02-12 Completed Universit y of Vaccine 00:00:00 [facility] Influenza Virus 2015-02-12 Completed Universit y of Vaccine 00:00:00 [facility] Influenza Virus 2015-02-12 Completed Universit y of Vaccine 00:00:00 [facility] Influenza Virus 2015-02-12 Completed Universit y of Vaccine 00:00:00 [facility] Influenza Virus 2015-02-12 Completed Universit y of Vaccine 00:00:00 [facility] Influenza Virus 2015-02-12 Completed Universit y of Vaccine 00:00:00 [facility] Influenza Virus 2015-02-12 Completed Universit y of Vaccine 00:00:00 [facility] Influenza Virus 2015-02-12 Completed Universit y of Vaccine 00:00:00 [facility] Influenza Virus 2015-02-12 Completed Universit y of Vaccine 00:00:00 [facility] Influenza Virus 2015-02-12 Completed Universit y of Vaccine 00:00:00 [facility] Influenza Virus 2015-02-12 Completed Universit y of Vaccine 00:00:00 [facility] Influenza Virus 2015-02-12 Completed Universit y of Vaccine 00:00:00 [facility] Influenza Virus 2015-02-12 Completed Universit y of Vaccine 00:00:00 [facility] Influenza Virus 2015-02-12 Completed Universit y of Vaccine 00:00:00 [facility] Influenza Virus 2015-02-12 Completed Universit y of Vaccine 00:00:00 [facility] Influenza Virus 2015-02-12 Completed Universit y of Vaccine 00:00:00 [facility] Influenza Virus 2015-02-12 Completed Universit y of Vaccine 00:00:00 [facility] Influenza Virus 2015-02-12 Completed Universit y of Vaccine 00:00:00 [facility] Influenza Virus 2015-02-12 Completed Universit y of Vaccine 00:00:00 [facility] Influenza Virus 2014-02-10 Completed Universit y of Vaccine 00:00:00 [facility] Influenza Virus 2014-02-10 Completed Universit y of Vaccine 00:00:00 [facility] Influenza Virus 2014-02-10 Completed Universit y of Vaccine 00:00:00 [facility] Influenza Virus 2014-02-10 Completed Universit y of Vaccine 00:00:00 [facility] Influenza Virus 2014-02-10 Completed Universit y of Vaccine 00:00:00 [facility] Influenza Virus 2014-02-10 Completed Universit y of Vaccine 00:00:00 [facility] Influenza Virus 2014-02-10 Completed Universit y of Vaccine 00:00:00 [facility] Influenza Virus 2014-02-10 Completed Universit y of Vaccine 00:00:00 [facility] Influenza Virus 2014-02-10 Completed Universit y of Vaccine 00:00:00 [facility] Influenza Virus 2014-02-10 Completed Universit y of Vaccine 00:00:00 [facility] Influenza Virus 2014-02-10 Completed Universit y of Vaccine 00:00:00 [facility] Influenza Virus 2014-02-10 Completed Universit y of Vaccine 00:00:00 [facility] Influenza Virus 2014-02-10 Completed Universit y of Vaccine 00:00:00 [facility] Influenza Virus 2014-02-10 Completed Universit y of Vaccine 00:00:00 [facility] Influenza Virus 2014-02-10 Completed Universit y of Vaccine 00:00:00 [facility] Influenza Virus 2014-02-10 Completed Universit y of Vaccine 00:00:00 [facility] Influenza Virus 2014-02-10 Completed Universit y of Vaccine 00:00:00 [facility] Influenza Virus 2014-02-10 Completed Universit y of Vaccine 00:00:00 [facility] Influenza Virus 2014-02-10 Completed Universit y of Vaccine 00:00:00 [facility] Influenza Virus 2013-04-04 Completed Universit y of Vaccine 00:00:00 [facility] Influenza Virus 2013-04-04 Completed Universit y of Vaccine 00:00:00 [facility] Influenza Virus 2013-04-04 Completed Universit y of Vaccine 00:00:00 [facility] Influenza Virus 2013-04-04 Completed Universit y of Vaccine 00:00:00 [facility] Influenza Virus 2013-04-04 Completed Universit y of Vaccine 00:00:00 [facility] Influenza Virus 2013-04-04 Completed Universit y of Vaccine 00:00:00 [facility] Influenza Virus 2013-04-04 Completed Universit y of Vaccine 00:00:00 [facility] Influenza Virus 2013-04-04 Completed Universit y of Vaccine 00:00:00 [facility] Influenza Virus 2013-04-04 Completed Universit y of Vaccine 00:00:00 [facility] Influenza Virus 2013-04-04 Completed Universit y of Vaccine 00:00:00 [facility] Influenza Virus 2013-04-04 Completed Universit y of Vaccine 00:00:00 [facility] Influenza Virus 2013-04-04 Completed Universit y of Vaccine 00:00:00 [facility] Influenza Virus 2013-04-04 Completed Universit y of Vaccine 00:00:00 [facility] Influenza Virus 2013-04-04 Completed Universit y of Vaccine 00:00:00 [facility] Influenza Virus 2013-04-04 Completed Universit y of Vaccine 00:00:00 [facility] Influenza Virus 2013-04-04 Completed Universit y of Vaccine 00:00:00 [facility] Influenza Virus 2013-04-04 Completed Universit y of Vaccine 00:00:00 [facility] Influenza Virus 2013-04-04 Completed [facility]it y of Vaccine 00:00:00 [facility] Influenza Virus 2013-04-04 Completed [facility]it y of Vaccine 00:00:00 [facility] Influenza Virus 2012-01-10 Completed [facility]it y of Vaccine 00:00:00 [facility] Influenza Virus 2012-01-10 Completed [facility]it y of Vaccine 00:00:00 [facility] Influenza Virus 2012-01-10 Completed [facility]it y of Vaccine 00:00:00 [facility] Influenza Virus 2012-01-10 Completed [facility]it y of Vaccine 00:00:00 [facility] Influenza Virus 2012-01-10 Completed [facility]it y of Vaccine 00:00:00 [facility] Influenza Virus 2012-01-10 Completed [facility]it y of Vaccine 00:00:00 [facility] Influenza Virus 2012-01-10 Completed [facility]it y of Vaccine 00:00:00 [facility] Influenza Virus 2012-01-10 Completed [facility]it y of Vaccine 00:00:00 [facility] Influenza Virus 2012-01-10 Completed [facility]it y of Vaccine 00:00:00 [facility] Influenza Virus 2012-01-10 Completed [facility]it y of Vaccine 00:00:00 [facility] Influenza Virus 2012-01-10 Completed [facility]it y of Vaccine 00:00:00 [facility] Influenza Virus 2012-01-10 Completed [facility]it y of Vaccine 00:00:00 [facility] Influenza Virus 2012-01-10 Completed [facility]it y of Vaccine 00:00:00 [facility] Influenza Virus 2012-01-10 Completed [facility]it y of Vaccine 00:00:00 [facility] Influenza Virus 2012-01-10 Completed [facility]it y of Vaccine 00:00:00 [facility] Influenza Virus 2012-01-10 Completed [facility]it y of Vaccine 00:00:00 [facility] Influenza Virus 2012-01-10 Completed [facility]it y of Vaccine 00:00:00 [facility] Influenza Virus 2012-01-10 Completed [facility]it y of Vaccine 00:00:00 [facility] Influenza Virus 2012-01-10 Completed [facility]it y of Vaccine 00:00:00 [facility] Influenza Virus 2010-12-27 Completed [facility]it y of Vaccine 00:00:00 [facility] Influenza Virus 2010-12-27 Completed [facility]it y of Vaccine 00:00:00 [facility] Influenza Virus 2010-12-27 Completed [facility]it y of Vaccine 00:00:00 [facility] Influenza Virus 2010-12-27 Completed [facility]it y of Vaccine 00:00:00 [facility] Influenza Virus 2010-12-27 Completed [facility]it y of Vaccine 00:00:00 [facility] Influenza Virus 2010-12-27 Completed [facility]it y of Vaccine 00:00:00 [facility] Influenza Virus 2010-12-27 Completed [facility]it y of Vaccine 00:00:00 [facility] Influenza Virus 2010-12-27 Completed [facility]it y of Vaccine 00:00:00 [facility] Influenza Virus 2010-12-27 Completed [facility]it y of Vaccine 00:00:00 [facility] Influenza Virus 2010-12-27 Completed [facility]it y of Vaccine 00:00:00 [facility] Influenza Virus 2010-12-27 Completed [facility]it y of Vaccine 00:00:00 [facility] Influenza Virus 2010-12-27 Completed [facility]it y of Vaccine 00:00:00 [facility] Influenza Virus 2010-12-27 Completed [facility]it y of Vaccine 00:00:00 [facility] Influenza Virus 2010-12-27 Completed [facility]it y of Vaccine 00:00:00 [facility] Influenza Virus 2010-12-27 Completed [facility]it y of Vaccine 00:00:00 [facility] Influenza Virus 2010-12-27 Completed [facility]it y of Vaccine 00:00:00 [facility] Influenza Virus 2010-12-27 Completed [facility]it y of Vaccine 00:00:00 [facility] Influenza Virus 2010-12-27 Completed [facility]it y of Vaccine 00:00:00 [facility] Influenza Virus 2010-12-27 Completed [facility]it y of Vaccine 00:00:00 [facility] Influenza Virus 2009-12-23 Completed [facility]it y of Vaccine 00:00:00 [facility] Influenza Virus 2009-12-23 Completed [facility]it y of Vaccine 00:00:00 [facility] Influenza Virus 2009-12-23 Completed [facility]it y of Vaccine 00:00:00 [facility] Influenza Virus 2009-12-23 Completed [facility]it y of Vaccine 00:00:00 [facility] Influenza Virus 2009-12-23 Completed [facility]it y of Vaccine 00:00:00 [facility] Influenza Virus 2009-12-23 Completed [facility]it y of Vaccine 00:00:00 [facility] Influenza Virus 2009-12-23 Completed [facility]it y of Vaccine 00:00:00 [facility] Influenza Virus 2009-12-23 Completed [facility]it y of Vaccine 00:00:00 [facility] Influenza Virus 2009-12-23 Completed [facility]it y of Vaccine 00:00:00 [facility] Influenza Virus 2009-12-23 Completed [facility]it y of Vaccine 00:00:00 [facility] Influenza Virus 2009-12-23 Completed [facility]it y of Vaccine 00:00:00 [facility] Influenza Virus 2009-12-23 Completed [facility]it y of Vaccine 00:00:00 [facility] Influenza Virus 2009-12-23 Completed [facility]it y of Vaccine 00:00:00 [facility] Influenza Virus 2009-12-23 Completed [facility]it y of Vaccine 00:00:00 [facility] Influenza Virus 2009-12-23 Completed [facility]it y of Vaccine 00:00:00 [facility] Influenza Virus 2009-12-23 Completed [facility]it y of Vaccine 00:00:00 [facility] Influenza Virus 2009-12-23 Completed Universit y of Vaccine 00:00:00 [facility] Influenza Virus 2009-12-23 Completed Universit y of Vaccine 00:00:00 [facility] Influenza Virus 2009-12-23 Completed Universit y of Vaccine 00:00:00 [facility] TDAP 2008-05-05 Completed University of 00:00:00 [facility] TDAP 2008-05-05 Completed University of 00:00:00 [facility] TDAP 2008-05-05 Completed University of 00:00:00 [facility] TDAP 2008-05-05 Completed University of 00:00:00 [facility] TDAP 2008-05-05 Completed University of 00:00:00 [facility] TDAP 2008-05-05 Completed University of 00:00:00 [facility] TDAP 2008-05-05 Completed University of 00:00:00 [facility] TDAP 2008-05-05 Completed University of 00:00:00 [facility] TDAP 2008-05-05 Completed University of 00:00:00 [facility] TDAP 2008-05-05 Completed University of 00:00:00 [facility] TDAP 2008-05-05 Completed University of 00:00:00 [facility] TDAP 2008-05-05 Completed University of 00:00:00 [facility] TDAP 2008-05-05 Completed University of 00:00:00 [facility] TDAP 2008-05-05 Completed University of 00:00:00 [facility] TDAP 2008-05-05 Completed University of 00:00:00 [facility] TDAP 2008-05-05 Completed University of 00:00:00 [facility] TDAP 2008-05-05 Completed University of 00:00:00 [facility] TDAP 2008-05-05 Completed University of 00:00:00 [facility] TDAP 2008-05-05 Completed [facility] of 00:00:00 [facility] Influenza Virus 2007-01-16 Completed Universit y of Vaccine 00:00:00 [facility] Influenza Virus 2007-01-16 Completed [facility]it y of Vaccine 00:00:00 [facility] Influenza Virus 2007-01-16 Completed [facility]it y of Vaccine 00:00:00 [facility] Influenza Virus 2007-01-16 Completed [facility]it y of Vaccine 00:00:00 [facility] Influenza Virus 2007-01-16 Completed [facility]it y of Vaccine 00:00:00 [facility] Influenza Virus 2007-01-16 Completed [facility]it y of Vaccine 00:00:00 [facility] Influenza Virus 2007-01-16 Completed [facility]it y of Vaccine 00:00:00 [facility] Influenza Virus 2007-01-16 Completed [facility]it y of Vaccine 00:00:00 [facility] Influenza Virus 2007-01-16 Completed [facility]it y of Vaccine 00:00:00 [facility] Influenza Virus 2007-01-16 Completed [facility]it y of Vaccine 00:00:00 [facility] Influenza Virus 2007-01-16 Completed [facility]it y of Vaccine 00:00:00 [facility] Influenza Virus 2007-01-16 Completed [facility]it y of Vaccine 00:00:00 [facility] Influenza Virus 2007-01-16 Completed [facility]it y of Vaccine 00:00:00 [facility] Influenza Virus 2007-01-16 Completed [facility]it y of Vaccine 00:00:00 [facility] Influenza Virus 2007-01-16 Completed [facility]it y of Vaccine 00:00:00 [facility] Influenza Virus 2007-01-16 Completed [facility]it y of Vaccine 00:00:00 [facility] Influenza Virus 2007-01-16 Completed [facility]it y of Vaccine 00:00:00 [facility] Influenza Virus 2007-01-16 Completed [facility]it y of Vaccine 00:00:00 [facility] Influenza Virus 2007-01-16 Completed Universit y of Vaccine 00:00:00 [facility] Vital Signs Vital Name Observation Time Observation Value Comments Source Systolic blood 2019-12-31 19:27:00 131 mm[Hg] Univer sity of pressure [facility] Diastolic blood 2019-12-31 19:27:00 77 mm[Hg] Unive rsity of pressure [facility] Heart rate 2019-12-31 19:24:00 96 /min [facility] Body temperature 2019-12-31 19:24:00 36.5 Gerri [facility] Respiratory rate 2019-12-31 19:24:00 18 /min [facility] Body weight 2019-12-31 19:24:00 56.065 kg [facility] BMI 2019-12-31 19:24:00 25.83 kg/m2 [facility] ty of [facility] Systolic blood 2019-12-17 15:17:00 160 mm[Hg] Univer sity of pressure [facility] Diastolic blood 2019-12-17 15:17:00 71 mm[Hg] Unive rsity of pressure [facility] Heart rate 2019-12-17 14:29:00 64 /min [facility]i ty of [facility] Body temperature 2019-12-17 14:29:00 37.11 Gerri Univ ersity of [facility] Respiratory rate 2019-12-17 14:29:00 16 /min Univ ersity of [facility] Body height 2019-12-17 14:29:00 147.3 cm Universi ty of [facility] Body weight 2019-12-17 14:29:00 56.926 kg Universi ty of [facility] BMI 2019-12-17 14:29:00 26.23 kg/m2 Universi ty of [facility] Oxygen saturation in 2019-12-17 14:29:00 99 /min University of Arterial blood by [facility] Pulse oximetry Branch Systolic blood 2019-11-15 18:08:00 138 mm[Hg] Univer sity of pressure [facility] Diastolic blood 2019-11-15 18:08:00 76 mm[Hg] Unive rsity of pressure [facility] Heart rate 2019-11-15 18:08:00 89 /min Universi ty of [facility] Body temperature 2019-11-15 18:08:00 36.83 [address] of [facility] Respiratory rate 2019-11-15 18:08:00 14 /min Univ ersity of [facility] Body height 2019-11-15 18:08:00 147.3 cm [facility]i [facility] Body weight 2019-11-15 18:08:00 55.566 kg [facility] BMI 2019-11-15 18:08:00 25.60 kg/m2 Universi ty of [facility] Systolic blood 2019-11-02 22:47:00 165 mm[Hg] Univer sity of pressure [facility] Diastolic blood 2019-11-02 22:47:00 57 mm[Hg] Unive rsity of pressure [facility] Heart rate 2019-11-02 22:47:00 99 /min Universi ty of [facility] Body temperature 2019-11-02 22:47:00 36.61 Gerri [facility] Respiratory rate 2019-11-02 22:47:00 20 /min [facility] Oxygen saturation in 2019-11-02 22:47:00 98 /min [facility] Arterial blood by [facility] Pulse oximetry Branch Body weight 2019-11-02 01:30:00 64.32 kg [facility] BMI 2019-11-02 01:30:00 29.64 kg/m2 [facility] Body height 2019-10-27 02:27:00 147.3 cm [facility] Procedures Procedure Date / Time Performing Clinician Source Performed DISCLOSURE AND CONSENT, 2019-12-31 05:01:00 Doctor Unassigned, N o [facility] MEDICAL AND SURGICAL Name Medical Bra [facility] PROCEDURES XR KNEE 3 VW BILATERAL 2019-12-17 15:36:25 Emanuel Bridges [facility] FLU VACC ([id number]), 6+ 2019-12-17 15:17:05 Emanuel Bridges [facility] MONTHS, IM, QUAD [facility] XR CHEST 2 VW 2019-11-15 16:40:00 Seferino Peng [facility] ASSIGNMENT OF BENEFITS 2019-11-15 16:24:52 Doctor Unassigned, No [facility] Name [facility] XR CHEST 1 VW 2019-11-02 21:57:07 Antonieta Reynoso [facility] XR CHEST 1 2019-11-02 20:08:00 Vasyl [facility] XR CHEST 1 2019-11-02 10:21:07 Neha Garcia [facility] BASIC METABOLIC PANEL 2019-11-02 09:25:00 Waldo Fallon [facility] (NA, K, CL, CO2, Medical Branch GLUCOSE, BUN, CREATININE, CA) CBC WITH DIFF 2019-11-02 09:25:00 Vasyl [facility] XR CHEST 1 VW 2019-11-01 10:34:43 Vasyl [facility] BASIC METABOLIC PANEL 2019-11-01 10:31:00 Vasyl [facility] (NA, K, CL, CO2, [facility] GLUCOSE, BUN, CREATININE, CA) CBC WITH DIFF 2019-11-01 10:31:00 Vasyl [facility] XR CHEST 1 VW 2019 20:50:00 Vasyl [facility] XR CHEST 1 VW 2019 10:54:[facility] 2019 [facility]:26[facility] ([facility], K, CL, CO2, [facility] GLUCOSE, BUN, CREATININE, CA) CBC WITH DIFF 2019 10:26:00 Vasyl [facility] POCT GLUCOSE (AUTOMATED) 2019-10-30 18:32:00 RafitaKendrick C [facility] POCT GLUCOSE (AUTOMATED) 2019-10-30 13:33:00 RafitaJean-PierreKendrick C [facility] XR CHEST 1 VW 2019-10-30 09:07:00 Jose [facility] BASIC METABOLIC PANEL 2019-10-30 06:50:00 Vasyl [facility] (NA, K, CL, CO2, [facility] GLUCOSE, BUN, CREATININE, CA) CBC WITH DIFF 2019-10-30 06:50:00 Vasyl [facility] POCT GLUCOSE (AUTOMATED) 2019-10-30 02:02:00 Kendrick Eller C [facility] POCT GLUCOSE (AUTOMATED) 2019-10-29 23:25:00 Kendrick Eller [facility] POCT GLUCOSE (AUTOMATED) 2019-10-29 18:45:00 Jean-Pierre Ellerenna C [facility] POCT GLUCOSE (AUTOMATED) 2019-10-29 13:53:00 RafitaJean-PierreKendrick C [facility] BASIC METABOLIC PANEL 2019-10-29 11:45:00 Gurinder [facility] (NA, K, CL, CO2, Medical Branch GLUCOSE, BUN, CREATININE, CA) CBC WITH DIFF 2019-10-29 11:45:00 Gurinder [facility] XR CHEST 1 VW 2019-10-29 10:54:00 [facility] ([facility]OM[facility]) 2019-10-29 06:04:00 [facility] ([facility]ATED) 2019-10-29 03:20:00 Kendrick Eller U [facility] POCT GLUCOSE (AUTOMATED) 2019-10-29 02:21:00 Kend[facility]SE (AUTOMATED) 2019-10-28 21:56:00 Kendrick Eller U [facility] CBC WITH DIFF 2019-10-28 21:10:00 [facility] 1 VW 2019-10-28 20:49:00 Gurinder [facility] SURGICAL PATHOLOGY EXAM 2019-10-28 20:29:00 Kend[facility] NERVE BLOCK 2019-10-28 19:55:08 Samples, Ry [facility] PREPARE PACKED RBC 2019-10-28 19:50:49 [facility] 2019-10-28 18:38:15 [facility] INTUBATION 2019-10-28 18:03:32 [facility] CYTO PLEURAL FLUID 2019-10-28 17:18:00 Kendrick Eller [facility] ASPIRATE OR ABSCESS 2019-10-28 17:16:34 Kendrick Eller [facility] CULTURE(AEROBIC/ANAEROBI [facility] C) AFB CULTURE 2019-10-28 17:16:34 Kendrick Eller [facility] FUNGUS (ROUTINE) CULTURE 2019-10-28 17:16:34 Kendrick Eller U [facility] ARTERIAL LINE 2019-10-28 16:20:30 Samples, Ry Stew [facility] HB ABO GROUPING 2019-10-28 16:15:00 Samples, Ry Stew [facility] VIDEO ASSISTED 2019-10-28 15:51:00 Kendrick Eller [facility] THORACOSCOPY Medical Branch PLEURODESIS 2019-10-28 15:51:00 Kendrick Eller [facility] PLEURAL BIOPSY 2019-10-28 15:51:00 Kendrick Eller [facility] POCT GLUCOSE (AUTOMATED) 2019-10-28 12:55:00 Kendrick Eller [facility] XR CHEST 1 VW 2019-10-28 08:40:00 Vasyl [facility] COVID-19 (ID NOW RAPID 2019-10-28 02:36:00 Waldo Fallon [facility] TESTING) [facility] POCT GLUCOSE (AUTOMATED) 2019-10-28 00:25:00 Kendrick Eller U [facility] POCT GLUCOSE (AUTOMATED) 2019-10-27 23:33:00 Kendrick Eller U [facility] PNEUMOCOCCAL ANTIGEN 2019-10-27 22:17:00 Vasyl luda [facility] SPUTUM CULTURE 2019-10-27 21:12:00 Vasyl [facility] POCT GLUCOSE (AUTOMATED) 2019-10-27 18:26:00 Kendrick Eller U [facility] BASIC METABOLIC PANEL 2019-10-27 09:48:00 Lynda Fitzpatrick [facility] (NA, K, CL, CO2, Medical Branch GLUCOSE, BUN, CREATININE, CA) CBC WITH DIFF 2019-10-27 09:47:00 Lynda Fitzpatrick [facility] POCT GLUCOSE (AUTOMATED) 2019-10-27 04:09:00 Kendrick Eller U [facility] POCT GLUCOSE (AUTOMATED) 2019-10-26 21:53:00 Jorden De Los Santos [facility] MRSA / MSSA SCREEN BY 2019-10-26 20:34:00 Sj Dixon [facility] CONTRAST 2019-10-26 16:56:04 Sj Dixon [facility] POCT GLUCOSE (AUTOMATED) 2019-10-26 16:07:00 Jorden De Los Santos [facility] BLOOD CULTURE SCREEN 2019-10-26 15:19:00 Sj Dixon [facility] BLOOD CULTURE SCREEN 2019-10-26 13:30:00 Sj Dixon [facility] BLOOD CULTURE WORKUP 2019-10-26 13:30:00 Sj Dixon [facility] GRAM POSITIVE BLOOD 2019-10-26 13:30:00 Sj Dixon [facility] PATHOGENS DNA [facility] PROBE-AEROBIC POCT GLUCOSE (AUTOMATED) 2019-10-26 13:14:00 Jorden De Los Santos [facility] BASIC METABOLIC PANEL 2019-10-26 08:52:00 Sj Dixon [facility] (NA, K, CL, CO2, Medical Branch GLUCOSE, BUN, CREATININE, CA) CBC WITH DIFF 2019-10-26 08:52:00 Zack [facility] GLYCOSYLATED HEMOGLOBIN 2019-10-26 08:52:00 Lynda Fitzpatrick [facility] (A1C) [facility] C-REACTIVE PROTEIN 2019-10-26 03:37:00 Lynda Fitzpatrick [facility] SEDIMENTATION RATE 2019-10-26 03:37:00 Amari Lyndajosie Hancock [facility] PROCALCITONIN 2019-10-26 03:37:00 Lynda Fitzpatrick [facility] POCT GLUCOSE (AUTOMATED) 2019-10-26 01:15:00 Jorden De Los Santos [facility] CT LUMBAR SPINE WO 2019-10-26 00:47:01 Lynda Fitzpatrick [facility] CONTRAST [facility] URINALYSIS 2019-10-25 18:07:00 Jero Hinkle [facility] PROTEIN CREAT RATIO 2019-10-25 18:07:00 Jero Hinkle [facility] URINE RANDOM [facility] SODIUM, URINE RANDOM 2019-10-25 18:07:00 Jero Hinkle [facility] XR CHEST 1 VW 2019-10-25 16:29:50 Zack [facility] BASIC METABOLIC PANEL 2019-10-25 09:22:00 Lynda Fitzpatrick [facility] (NA, K, CL, CO2, [facility] GLUCOSE, BUN, CREATININE, CA) CBC WITH DIFF 2019-10-25 09:22:00 Lynda Fitzpatrick [facility] XR SHOULDER 2+ VW RIGHT 2019-10-23 19:25:30 Sj Dixon [facility] NM LUNG PERFUSION ONLY 2019-10-22 18:26:53 [facility] W/DOPPLER 2019-10-22 16:03:19 Isidro [facility] COLOR [facility] BILATERAL VENOUS DUPLEX 2019-10-22 15:46:16 Jorden De Los Santos [facility] LOWER EXTREMITY BY Medical Bran h VASCULAR LAB MAGNESIUM 2019-10-22 08:28:00 Isidro [facility] TROPONIN I 2019-10-22 08:28:00 [facility] BAS[facility]OLIC PANEL 2019-10-22 08:28:00 Jorden De Los Santos [facility] (NA, K, CL, CO2, [facility] GLUCOSE, BUN, CREATININE, CA) CBC WITH DIFF 2019-10-22 08:28:00 [facility] PARTIAL 2019-10-22 08:28:00 Magali [facility] [address] [facility] THRMPLAS [facility] N-TERMINAL PRO-BNP 2019-10-22 08:28:00 Isidro [facility] URINALYSIS 2019-10-22 05:15:[address] [facility] THORAX WO CONTRAST 2019-10-21 19:50:29 Earl Hassan [facility] XR CHEST 1 VW COVID 2019-10-21 17:56:31 Earl Hassan [facility] TROPONIN I 2019-10-21 17:41:00 Magali [facility] COMP. METABOLIC PANEL 2019-10-21 17:41:00 Earl Hassan [facility] ([id number]) [facility] CBC WITH DIFF 2019-10-21 17:41:00 Earl Hassan Rozina [facility] PROTHROMBIN TIME / INR 2019-10-21 17:41:00 Jorden De Los Santos [facility] D-DIMER 2019-10-21 17:41:00 Earl Hassan Roz[place] [facility] COVID-19 (ID NOW RAPID 2019-10-21 17:41:00 Earl Hassan [facility] Branch EKG-12 LEAD 2019-10-21 17:36:32 Doctor Unassigned, No [facility] EKG-12 LEAD 2019-10-21 17:23:52 Earl Hassan Rozina [place] [facility] [facility] NOTICE OF PRIVACY 2019-10-21 17:02:16 Doctor Unassigned, No Univ [facility] Name [facility] HOSPITAL ADMISSION 2019-10-21 05:01:00 Doctor Unassigned, No Uni versity [facility] Encounters Start End Encounter Admission Attending Care Care Encounter Source Date/Time Date/Time Type Type Clinicians Facility Department ID 2021-01-26 Outpatient [facility] 09:20:33 [id number] Medical Group 2021-01-24 Outpatient [facility] 15:02:20 [id number] Medical Group 2021-01-24 [facility] 04:37:56 [id number] Medical Group 2021-02-03 2021-02-03 ambulatory [facility]LMLC [facility] [id number] [facility] 00[facility]00 [facility] 2019-12-31 2019-12-31 Office Emanuel Bridges [facility] 1.2.840.11 [id number] Univers 13:50:30 16:55:39 Visit Unknown, Attending PRIMARY 350.1.13.10 ity [facility] 4.2.7.2.686 [facility] [phone] [place] [facility] Branch 2019-12-31 2019-12-31 Outpatient R UNKNOWN, [facility] [id number] Univers 14:30:00 14:30:[address] [facility] 2019-12-31 2019-12-31 Outpatient [facility] [id number] Univers 13:20:00 13:20:[id number] [facility] 2019-12-31 2019-12-31 Ancillary Shilpa Jeong [facility] 1.2. 840.114 [id number] Univers 10:55:07 11:55:07 Visit Benny Herrera PRIMARY 350.1.13.10 [place] [phone] [place] [address] [place] 2019-12-31 2019-12-31 Outpatient R JAVIER [facility] [id number] Univers 11:00:00 11:00:[address] [facility] 2019-12-31 2019-12-31 Orders Doctor JOAQUINA 1.2.840.114 [id number] Univers 00:00:00 00:00:00 Only Unassigned, SHAD 350.1.13.10 ity of [place] [facility] 4.2.7.2.686 Corey as [phone] [address] 2019-12-19 2019-12-19 [facility] 1.2.281.201 [id number] Univers 00:00:00 00:00:00 Emanuel PRIMARY 350.1.13.10 it y [place] [phone] [place] [address] [place] 2019-12-18 2019-12-18 [facility] 1.2.372.174 [id number] Univers 00:00:00 00:00:00 Emanuel PRIMARY 350.1.13.10 it y [place] [phone] [place] [address] [place] 2019-12-17 2019-12-17 [facility] Earline [facility] 1.2.840.114 [id number] Univers 10:20:00 23:59:00 Encounter Jean-Paul Farris PRIMARY 350.1.13.10 it[place] of [place] 4[place] [phone] [place] [address] [place] 2019-12-17 2019-12-17 Office Emanuel Bridges [facility] 1.2.840.11 [id number] Univers 09:18:36 10:13:32 Visit Jean-Paul Simmons PRIMARY 350.1.13.10 ity of [place] [phone] [place] 044 [place] 2019-12-17 2019-12-17 Outpatient [facility] [id number] Univers 09:30:00 09:30:[address] [facility] 2019-12-17 2019-12-17 Outpatient R EARLINE, [facility] [id number] Univers 09:30:00 09:30:00 JEAN-PAUL ity of [facility] 2019-11-15 2019-11-17 Office Rafita, UNIVERS 1.2.840.114 [id number] Univers 12:29:49 11:04:37 Visit Kendrick C Y HEALTH 350.1.13.10 ity of CL[place] [id number] [facility] 185 [address] 2019-11-15 2019-11-15 Hospital [facility], [facility] 1.2.840.114 [id number] Univers 11:28:01 23:59:00 Encounter Seferino Y HEALTH 350.1.13.10 ity of CL[place]ICS [place] [id number] [facility] 807 [address] 2019-11-15 2019-11-15 Outpatient R CATELDAT, [facility] [id number] Univers 00:00:00 00:00:00 SEFERINO ity [facility] 2019-11-15 2019-11-15 Orders Doctor KUNZ 1.2.840.114 [id number] Univers 00:00:00 00:00:00 Only Unassigned, SHAD 350.1.13.10 ity of [place] [facility] 4.2.7.2.686 [place] as [phone] [facility] 009 Branch 2019-11-08 2019-11-08 Outpatient R UNKNOWN, [facility] [id number] Univers 13:00:00 13:00:[address] [facility] 2019-11-04 2019-11-04 Case [facility], [facility] 1.2.840.114 [id number] Univers 00:00:00 00:00:00 Management Seferino Y HEALTH 350.1.13.10 ity of [place] [phone] [facility] [address] 2019-11-04 2019-11-04 Transition Ruma Nelson 1.2.840.114 [id number] Univers 00:00:00 00:00:00 of Care Suad Fitzgerald 350.1.13.10 ity of [place] [id number] [facility] [address] 2019-11-04 2019-11-04 Transition Ruma Nelson 1.2.840.114 [id number] Univers 00:00:00 00:00:00 of Care Suad Fitzgerald 350.1.13.10 ity of [place].2.[place] [id number] [facility] 403 [address] 2019-10-21 2019-11-02 Hospital Earl Hassan 1.2.840.1 14 [id number] Univers 12:12:00 18:55:00 Encounter Jorden De Los Santos 350.1.13.10 ity of [facility] 4.2.7.2.686 [place] [phone] [facility] 089 Branch 2019-10-28 2019-10-28 Anesthesia Red Campos 1.2.840. 114 [id number] Univers 11:21:00 15:18:00 Dmitry Jakobjose Noguera Shad 350.1.1 3.10 ity of Hospital 4.2.7.2.686 [place] [id number] [facility] 103 Branch 2019-10-21 2019-10-21 Emergency X [facility] ERT [id number] Univers 12:03:00 12:03:[address] [facility] 2019-07-09 2019-07-09 Outpatient [facility] [id number] [place] 00:00:00 00:00:00 Health 2019-05-28 2019-05-28 Outpatient [facility] [id number] [place] 09:41:49 09:41:49 Health 2019-05-28 2019-05-28 Outpatient [facility] [id number] [place] 00:00:00 00:00:00 Health 2019-05-14 2019-05-14 Outpatient [facility] [id number] [place] 09:19:03 09:19:03 Health 2019-05-13 2019-05-13 Outpatient [facility] [id number] [place] 00:00:00 00:00:00 Health 2019-04-26 2019-04-26 Outpatient [facility] [id number] [place] 10:45:57 10:45:57 Health 2019-04-16 2019-04-16 Outpatient [facility] [id number] [place] 14:01:21 14:01:21 Health 2019-04-16 2019-04-16 Outpatient [facility] [id number] [place] 12:58:29 12:58:29 Health 2019-04-16 2019-04-16 Outpatient [facility] [id number] [place] 11:20:07 11:20:07 Health 2019-04-15 2019-04-15 Outpatient [facility] [id number] [place] 00:00:00 00:00:00 [facility] 2019-04-15 2019-04-15 Outpatient [facility] [id number] [place] 00:00:00 00:00:00 [facility] 2019-04-12 2019-04-12 Outpatient [facility] [id number] [place] 16:04:17 16:04:17 [facility] 2019-04-12 2019-04-12 Outpatient [facility] [id number] [place] 15:19:36 15:19:36 [facility] 2019-04-12 2019-04-12 Outpatient [facility] [id number] [place] 00:00:00 00:00:00 [facility] 2019-02-01 2019-02-01 Outpatient [facility] [id number] [place] 14:09:59 14:09:59 [facility] 2018-12-28 2018-12-28 Outpatient [facility] [id number] [place] 00:00:00 00:00:00 [facility] 2018-12-06 2018-12-06 Outpatient [facility] [id number] [place] 11:10:58 11:10:58 [facility] 2018-12-06 2018-12-06 Outpatient [facility] [id number] [place] 10:23:54 10:23:54 Health 2018-12-06 2018-12-06 Outpatient [facility] [id number] [place] 00:00:00 00:00:00 [facility] 2018-11-13 2018-11-13 Outpatient [facility] [id number] [place] 00:00:00 00:00:00 [facility] 2018-11-13 2018-11-13 Outpatient [facility] [id number] [place] 00:00:00 00:00:00 [facility] 2018-10-11 2018-10-11 Outpatient [facility] [id number] [place] 10:14:40 10:14:40 [facility] 2018-10-11 2018-10-11 Outpatient [facility] [id number] [place] 09:07:22 09:07:22 [facility] 2018-08-07 2018-08-07 Outpatient [facility] [id number] [place] 10:20:11 10:20:11 [facility] 2018-08-07 2018-08-07 Outpatient [facility] [id number] [place] 08:26:50 08:26:50 [facility] 2018-08-07 2018-08-07 Outpatient [facility] [id number] [place] 00:00:00 00:00:00 [facility] 2018-07-11 2018-07-11 Outpatient [facility] [id number] [place] 14:06:46 14:06:46 [facility] 2018-07-11 2018-07-11 Outpatient [facility] [id number] [place] 13:00:20 13:00:20 [facility] 2018-05-25 2018-05-25 Outpatient [facility] [id number] [place] 00:00:00 00:00:00 [facility] 2018-05-02 2018-05-02 Outpatient [facility] [id number] [place] 00:00:00 00:00:00 [facility] 2018-04-27 2018-04-27 Outpatient [facility] [id number] [place] 08:14:01 08:14:01 [facility] 2018-04-20 2018-04-20 Outpatient [facility] [id number] [place] 00:00:00 00:00:00 [facility] 2018-04-19 2018-04-19 Outpatient [facility] [id number] [place] 00:00:00 00:00:00 [facility] 2018-04-19 2018-04-19 Outpatient [facility] [id number] [place] 00:00:00 00:00:00 [facility] 2018-04-17 2018-04-17 Outpatient [facility] [id number] [place] 08:04:30 08:04:30 [facility] 2018-04-10 2018-04-10 Outpatient [facility] [id number] [place] 08:44:35 08:44:35 [facility] 2018-04-09 2018-04-09 Outpatient [facility] [id number] [place] 00:00:00 00:00:00 [facility] 2018-04-06 2018-04-06 Outpatient [facility] [id number] [place] 09:42:58 09:42:58 Health 2018-04-06 2018-04-06 Outpatient [facility] [id number] [place] 08:34:43 08:34:43 [facility] 2018-04-06 2018-04-06 Outpatient [facility] [id number] [place] 08:02:30 08:02:30 [facility] 2018-03-30 2018-03-30 Outpatient [facility] [id number] [place] 15:32:31 15:32:31 [facility] 2018-03-19 2018-03-19 Outpatient [facility] [id number] [place] 00:00:00 00:00:00 [facility] 2018-03-08 2018-03-08 Outpatient [facility] [id number] [place] 14:32:20 14:32:20 [facility] 2018-03-02 2018-03-02 Outpatient [facility] [id number] [place] 15:51:25 15:51:25 [facility] 2018-03-02 2018-03-02 Outpatient [facility] [id number] [place] 15:09:28 15:09:28 [facility] 2018-02-23 2018-02-23 Outpatient [facility] [id number] [place] 08:06:50 08:06:50 [facility] 2017-12-27 2017-12-27 Outpatient [facility] [id number] [place] 08:56:13 08:56:13 [facility] 2017-11-27 2017-11-27 Outpatient [facility] [id number] [place] 00:00:00 00:00:00 [facility] 2017-11-14 2017-11-14 Outpatient [facility] [id number] [place] 10:56:24 10:56:24 [facility] 2017-10-27 2017-10-27 Outpatient [facility] [id number] [place] 00:00:00 00:00:00 [facility] 2017-08-02 2017-08-02 Outpatient [facility] [id number] [place] 15:01:28 15:01:28 [facility] 2017-07-14 2017-07-14 Outpatient [facility] [id number] [place] 00:00:00 00:00:00 [facility] 2017-07-05 2017-07-05 Outpatient [facility] [id number] [place] 08:53:53 08:53:53 [facility] 2017-06-29 2017-06-29 Outpatient [facility] [id number] [place] 16:08:32 16:08:32 [facility] 2017-06-26 2017-06-26 Outpatient [facility] [id number] [place] 15:40:20 15:40:20 [facility] 2017-05-17 2017-05-17 Outpatient [facility] [id number] [place] 07:11:41 07:11:41 [facility] 2017-05-14 2017-05-14 Emergency [facility] [id number] [place] 09:17:03 09:17:03 [facility] 2017-05-14 2017-05-14 Emergency [facility] [id number] [place] 05:31:45 05:31:45 [facility] 2017-05-08 2017-05-08 Outpatient [facility] [id number] [place] 13:03:57 13:03:57 [facility] 2017-05-08 2017-05-08 Outpatient [facility] [id number] [place] 13:02:09 13:02:09 [facility] 2017-05-03 2017-05-03 Outpatient [facility] [id number] [place] 11:03:53 11:03:53 [facility] 2017-04-19 2017-04-19 Outpatient [facility] [id number] [place] 08:40:33 08:40:33 [facility] 2017-04-07 2017-04-07 Outpatient [facility] [id number] [place] 00:00:00 00:00:00 [facility] 2017-03-10 2017-03-10 Outpatient [facility] [id number] [place] 08:16:47 08:16:47 [facility] 2017-02-22 2017-02-22 Outpatient [facility] [id number] [place] 11:44:22 11:44:22 [facility] 2017-02-22 2017-02-22 Outpatient [facility] [id number] [place] 09:55:28 09:55:28 [facility] 2017-02-15 2017-02-15 Outpatient [facility] [id number] [place] 00:00:00 00:00:00 [facility] 2017-02-08 2017-02-08 Outpatient [facility] [id number] [place] 09:45:43 09:45:43 [facility] 2017-01-05 2017-01-05 Outpatient [facility] [id number] [place] 15:07:06 15:07:06 [facility] 2016-12-28 2016-12-28 Outpatient [facility] [id number] [place] 08:57:15 08:57:15 [facility] 2016-12-13 2016-12-13 Outpatient [facility] [id number] [place] 12:33:16 12:33:16 [facility] 2016-11-22 2016-11-22 Outpatient [facility] [id number] [place] 16:11:27 16:11:27 Health 2016-11-16 2016-11-16 Outpatient [facility] [id number] [place] 11:01:49 11:01:49 Health 2016-11-16 2016-11-16 Outpatient [facility] [id number] [place] 10:19:16 10:19:16 [facility] 2016-11-02 2016-11-02 Outpatient [facility] [id number] [place] 09:52:43 09:52:43 [facility] 2016-11-02 2016-11-02 Outpatient [facility] [id number] [place] 08:28:45 08:28:45 [facility] 2016-10-19 2016-10-19 Outpatient [facility] [id number] [place] 08:52:53 08:52:53 [facility] 2016-09-29 2016-09-29 Outpatient [facility] [id number] [place] 13:20:12 13:20:12 [facility] 2016-09-28 2016-09-28 Outpatient [facility] [id number] [place] 08:57:53 08:57:53 [facility] 2016-09-27 2016-09-27 Outpatient [facility] [id number] [place] 00:00:00 00:00:00 [facility] 2016-08-31 2016-08-31 Outpatient [facility] [id number] [place] 08:04:54 08:04:54 [facility] 2016-08-30 2016-08-30 Outpatient [facility] [id number] [place] 14:14:27 14:14:27 [facility] 2016-08-17 2016-08-17 Outpatient [facility] [id number] [place] 14:09:01 14:09:01 [facility] 2016-08-16 2016-08-16 Outpatient [facility] [id number] [place] 06:46:47 06:46:47 [facility] 2016-08-16 2016-08-16 Outpatient [facility] [id number] [place] 06:27:00 06:27:00 [facility] 2016-08-15 2016-08-15 Outpatient [facility] [id number] [place] 12:55:38 12:55:38 [facility] 2016-08-15 2016-08-15 Emergency [facility] [id number] [place] 04:39:38 04:39:38 [facility] 2016-08-15 2016-08-15 Outpatient [facility] [id number] [place] 00:00:00 00:00:00 [facility] 2016-08-14 2016-08-14 Emergency [facility] [id number] [place] 19:46:32 19:46:32 Health 2016-08-14 2016-08-14 Outpatient [facility] [id number] [place] 18:37:14 18:37:14 [facility] 2016-08-03 2016-08-03 Outpatient [facility] [id number] [place] 09:36:02 09:36:02 [facility] 2016-08-03 2016-08-03 Outpatient [facility] [id number] [place] 08:20:47 08:20:47 [facility] 2016-07-29 2016-07-29 Outpatient [facility] [id number] [place] 10:23:00 10:23:00 [facility] 2016-07-29 2016-07-29 Outpatient [facility] [id number] [place] 00:00:00 00:00:00 [facility] 2016-07-27 2016-07-27 Outpatient [facility] [id number] [place] 10:36:58 10:36:58 Health 2016-07-27 2016-07-27 Outpatient [facility] [id number] [place] 00:00:00 00:00:00 [facility] 2016-07-26 2016-07-26 Outpatient [facility] [id number] [place] 14:14:11 14:14:11 [facility] 2011-05-09 2011-05-10 Emergency X JOSIEMARYLUWILLA, [facility] ERT [id number] Univers 17:40:00 02:37:00 KALANI 3 ity [facility] 2007-07-26 2007-07-27 Emergency X JAGUAR, [facility] ERT [id number] Univers 23:04:00 01:47:00 HAO 2 ity [facility] 2006-10-21 2006-10-21 Emergency X EBONY MUÑOZ [facility] ERT [id number] Univers 09:26:00 20:50:00 EBONY MUÑOZ [address] [facility] 2006-07-10 2006-07-11 Emergency X PAUL, [facility] ERT [id number] Univers 19:52:00 00:18:00 VANI [address] [facility] 2006-03-24 2006-03-25 Emergency X HARLAN GIBBONS [facility] ERT [id number] Univers 20:44:00 00:30:00 7 ity [facility] 2005-11-13 2005-11-13 Emergency X TRENT, [facility] ERT [id number] Univers 01:43:00 14:41:00 [facility] Test Results Result Source Description Time Comments Comments XR KNEE 3 VW 2019-12- No fracture or Univers ity of BILATERAL 06 dislocation Mild [place] 19:10:48 bilateral Branch tricompartmental osteoarthritis Small right joint effusion. RL 4728 RING PHYSICIAN: JEAN-PAUL SIMMONS HISTORY: Osteoarthritis with knee pain TECHNIQUE: 3 standing views of each knee COMPARISON: None available FINDINGS: There is no fracture or dislocation. Small right suprapatellar effusion. Noleft effusion.. Mild bilateral tricompartmental joint space loss witharticular surface hypertrophic change. Medial compartment is most involved.Soft tissues unremarkable. [facility], Radiant Results Inft User - 12/17/2019 2:12 PM CDTORDERING PHYSICIAN: JEAN-APUL GRACESTORY: Osteoarthritis with knee painTECHNIQUE: 3 standing views of each kneeCOMPARISON: None availableFINDINGS:There is no fracture or dislocation. Small right suprapatellar effusion. Noleft effusion.. Mild bilateral tricompartmental joint space loss witharticular surface hypertrophic change. Medial compartment is most involved.Soft tissues unremarkable.IMPRESSIONNo fracture or dislocationMild bilateral tricompartmental osteoarthritisSmall right joint effusion.RL 4728 CHEST 2 VW 2019-11-12. ?No evidence of acute [facility] 04 cardiopulmonary disease. [facility] 19:17:43 2. Interval improvement B ranch of previously noted right-sided pneumothorax. Preliminary Report Dictated by Resident: Juancarlos Brennan ?MD Fly., have reviewed this study and agree withthe above report.EXAM: XR CHEST 2 VW 11/15/2019 11:38 AM HISTORY: 64 years-old Female with follow up lung surgery COMPARISON: CR,11/02/2019 TECHNIQUE: PA and lateral chest radiograph. FINDINGS: The lungs are clear. There is no pleural effusion. Interval improvement ofpreviously noted right-sided pneumothorax, appears now 4 mm. Elevation ofthe right hemidiaphragm likely related to volume loss. The cardiomediastinal silhouette is normal in size. No acute osseous abnormality. [facility], [facility]iant Results Inft User - 11/15/2019 2:18 PM CDTEXAM: XR CHEST 2 VW 11/15/2019 11:38 AMHISTORY: 64 years-old Female with follow up lung surgery COMPARISON: CR,11/02/2019TECHNIQUE: PA and lateral chest radiograph.FINDINGS:The lungs are clear. There is no pleural effusion. Interval improvement ofpreviously noted right-sided pneumothorax, appears now 4 mm. Elevation ofthe right hemidiaphragm likely related to volume loss.The cardiomediastinal silhouette is normal in size.No acute osseous abnormality.IMPRESSION1. No evidence of acute cardiopulmonary disease.2. Interval improvement of previously noted right-sided pneumothorax.Preliminary Report Dictated by Resident: Juancarlos Millan MD., have reviewed this study and agree withthe above report. XR CHEST 1 VW 2019-10- Findings and Impression: [facility] ?Overall, no significant [facility] 23:06:47 change in the Branch intervalsince 11/02/2019 at 15:05. Subcutaneous emphysema at the site of prior chesttube. Persistent right pleural effusion with associated atelectasis.Unchanged right lower lobe opacities. Stable right apical pneumothoraxmeasuring 1.8 cm (distance between parietal and visceral pleura). Heart size is stable. No acute osseous abnormality. PORTABLE CHEST RADIOGRAPH History: Pneumothorax Comparison: 11/02/2019 TECHNIQUE: AP view of the chest. [facility], Radiant Results Inft User - 11/02/2019 6:07 PM CDTPORTABLE CHEST RADIOGRAPHHistory: Pneumothorax Comparison: 11/02/2019TECHNIQUE: AP view of the chest.IMPRESSIONFindings and Impression: Overall, no significant change in the intervalsince 11/02/2019 at 15:05. Subcutaneous emphysema at the site of prior chesttube. Persistent right pleural effusion with associated atelectasis.Unchanged right lower lobe opacities. Stable right apical pneumothoraxmeasuring 1.8 cm (distance between parietal and visceral pleura).Heart size is stable. No acute osseous abnormality. XR CHEST 1 VW 2019-10- FINDINGS-IMPRESSION: [id number]: The right chest [facility] 22:41:17 tube terminates over the Branch right lung apex. Right basilarlung opacity, lung volume loss and unchanged small to moderate pleuraleffusion. Slight interval increase in the size of right apical pneumothoraxfrom 1 to 1.4 cm. The cardiomediastinal silhouette is normal. No acute osseous abnormality is identified. Cholecystectomy clips arenoted. Foci of gas are noted about the right axilla and right lateral chestwall suggestive of subcutaneous emphysema. #[id number]: Interval removal of right-sided chest tube. Mild improvement in right-sided pleural effusion. Right lower lung airspaceopacities. Unchanged small right apical pneumothorax. Right chest wall subcutaneous emphysema. The findings of this study, including pneumothorax, have been discussedwith and acknowledged by Dr. Reynoso in person 11/02/2019 at 5:35 PM withreadback. Preliminary Report Dictated by Resident: Juancarlos Thomas MD., have reviewed this study and agree withthe above report.XR CHEST 1 VW, XR CHEST 1 VW HISTORY: 64 years-old; Female; sp chest tube out COMPARISON: 11/01/2019 [facility], Radiant Results Inft User - 11/02/2019 5:42 PM CDTXR CHEST 1 VW, XR CHEST 1 VWHISTORY: 64 years-old; Female; sp chest tube out COMPARISON: 11/01/2019IMPRESSIONFINDIN GS-IMPRESSION:#[id number]:Th e right chest tube terminates over the right lung apex. Right basilarlung opacity, lung volume loss and unchanged small to moderate pleuraleffusion. Slight interval increase in the size of right apical pneumothoraxfrom 1 to 1.4 cm.The cardiomediastinal silhouette is normal.No acute osseous abnormality is identified. Cholecystectomy clips arenoted. Foci of gas are noted about the right axilla and right lateral chestwall suggestive of subcutaneous emphysema.#[id number]:Interv al removal of right-sided chest tube.Mild improvement in right-sided pleural effusion. Right lower lung airspaceopacities. Unchanged small right apical pneumothorax.Right chest wall subcutaneous emphysema. The findings of this study, including pneumothorax, have been discussedwith and acknowledged by Dr. Reynoso in person 11/02/2019 at 5:35 PM withreadback.Preliminary Report Dictated by Resident: Juancarlos Paez MD., have reviewed this study and agree withthe above report. XR CHEST 1 VW 2019-10- FINDINGS-IMPRESSION: [facility] #[id number]: The right chest [facility] 22:41:17 tube terminates over the Branch right lung apex. Right basilarlung opacity, lung volume loss and unchanged small to moderate pleuraleffusion. Slight interval increase in the size of right apical pneumothoraxfrom 1 to 1.4 cm. The cardiomediastinal silhouette is normal. No acute osseous abnormality is identified. Cholecystectomy clips arenoted. Foci of gas are noted about the right axilla and right lateral chestwall suggestive of subcutaneous emphysema. #[id number]: Interval removal of right-sided chest tube. Mild improvement in right-sided pleural effusion. Right lower lung airspaceopacities. Unchanged small right apical pneumothorax. Right chest wall subcutaneous emphysema. The findings of this study, including pneumothorax, have been discussedwith and acknowledged by Dr. Reynoso in person 11/02/2019 at 5:35 PM withreadback. Preliminary Report Dictated by Resident: Juancarlos Thomas MD., have reviewed this study and agree withthe above report.XR CHEST 1 VW, XR CHEST 1 VW HISTORY: 64 years-old; Female; sp chest tube out COMPARISON: 11/01/2019 [facility], Radiant Results Inft User - 11/02/2019 5:42 PM CDTXR CHEST 1 VW, XR CHEST 1 VWHISTORY: 64 years-old; Female; sp chest tube out [facility]: [facility]:#[id number]:Th e right chest tube terminates over the right lung apex. Right basilarlung opacity, lung volume loss and unchanged small to moderate pleuraleffusion. Slight interval increase in the size of right apical pneumothoraxfrom 1 to 1.4 cm.The cardiomediastinal silhouette is normal.No acute osseous abnormality is identified. Cholecystectomy clips arenoted. Foci of gas are noted about the right axilla and right lateral chestwall suggestive of subcutaneous emphysema.#[id number]:Interv al removal of right-sided chest tube.Mild improvement in right-sided pleural effusion. Right lower lung airspaceopacities. Unchanged small right apical pneumothorax.Right chest wall subcutaneous emphysema. The findings of this study, including pneumothorax, have been discussedwith and acknowledged by Dr. Reynoso in person 11/02/2019 at 5:35 PM withreadback.Preliminary Report Dictated by Resident: Juancarlos Paez MD., have reviewed this study and agree withthe above report. CBC WITH DIFF 2019-11-02 10:59:00 Test Item Value Reference Range Interpretation Comme nts WBC (test code = 6690-2) See_Comment H [A utomated message] The system which ge nerated this result transmit mary kay reference range: 4.30 - 1 1.10 10*3/?L. The reference r carlitos was not used to interpr et this result as normal/abnor mal. RBC (test code = 789-8) See_Comment L [Au tomated message] The system which ge nerated this result transmit mary kay reference range: 3.93 - 5 .25 10*6/?L. The reference r carlitos was not used to interpr et this result as normal/abnor mal. HGB (test code = 718-7) 7.2 g/dL 11.6-15 L HCT (test code = 4544-3) 21.4 % 35.7-45.2 L MCV (test code = 787-2) 92.2 fL 80.6-95.5 MCH (test code = 785-6) 31.0 pg 25.9-32.8 MCHC (test code = 786-4) 33.6 g/dL 31.6-35.1 RDW-SD (test code = 79886-7) 42.8 fL 39-49.9 RDW-CV (test code = 788-0) 13.2 % 12-15.5 PLT (test code = 777-3) See_Comment H [Au tomated message] The system which ge nerated this result transmit mary kay reference range: 166 - 35 8 10*3/?L. The reference range was not used to interpret th is result as normal/abnormal . MPV (test code = 84962-1) 8.9 fL 9.5-12.9 L NRBC/100 WBC (test code = See_Comment [ Automated message] The [id number]) system which ge nerated this result transmit mary kay reference range: 0.0 - 10 .0 /100 WBCs. The reference r carlitos was not used to interpr et this result as normal/abnor mal. NRBC x10^3 (test code = <0.01 See_Comment [Au tomated message] The 7690262796) system which ge nerated this result transmit mary kay reference range: 10*3/?L. The reference range was not u sed to interpret this result as normal/abnormal . GRAN MAT (NEUT) % (test code 72.1 % = 770-8) IMM GRAN % (test code = 5.10 % 8551390330) LYMPH % (test code = 736-9) 14.4 % MONO % (test code = 5905-5) 6.0 % EOS % (test code = 713-8) 2.1 % BASO % (test code = 706-2) 0.3 % GRAN MAT x10^3(ANC) (test 8.96 10*3/uL 1.88-7.09 H code = 0241773226) IMM GRAN x10^3 (test code = 0.63 10*3/uL 0-0.06 H 6198378745) LYMPH x10^3 (test code = 1.79 10*3/uL 1.32-3.29 731-0) MONO x10^3 (test code = 0.75 10*3/uL 0.33-0.92 742-7) EOS x10^3 (test code = 0.26 10*3/uL 0.03-0.39 711-2) BASO x10^3 (test code = 0.04 10*3/uL 0.01-0.07 704-7) Lab Interpretation (test Abnormal code = 85621-9) [facility] METABOLIC PANEL (NA, K, CL, CO2, GLUCOSE, BUN, CREATININE, CA)2019-11-02 10:49:00 Test Item Value Reference Range Interpretation Comments NA (test code = 134 mmol/L 135-145 L 6846260279) K (test code = 3.8 mmol/L 3.5-5 3881738690) CL (test code = 103 mmol/L 98-108 7253007787) CO2 TOTAL (test code = 28 mmol/L 23-31 8485398839) AGAP (test code = 2-16 2760119231) BUN (test code = 14 mg/dL 7-23 1756019176) GLUCOSE (test code = 93 mg/dL 70-110 6891408617) CREATININE (test code = 0.91 mg/dL 0.5-1.04 0841287152) CALCIUM (test code = 8.9 mg/dL 8.6-10.6 9429571715) eGFR Calculation mL/min/1.73m2 (Non-) (test code = 4207659864) eGFR Calculation mL/min/1.73m2 () (test code = 3615628873) SADIE (test code = SADIE) Association of Glomerular Filtration Rate (GFR) and Staging of Kidney Disease* + --+ --+ ------+| GFR (mL/min/1.73 m2) ?| With Kidney Damage ?| ?Without Kidney Damage+ --------+ --------+ +| ?>90 ?| ?Stage one ?| ? Normal ?+ ---+ ---+ -------+| ?60-89 ?| ?Stage two ?| ? Decreased GFR ? + --+ --+ ------+| ?30-59 ?| ?Stage three ?| ? Stage three ? + --+ --+ ------+| ?15-29 ?| ?Stage four ? | ? Stage four ?+ ---+ ---+ -------+| ?<15 (or dialysis) ? ?| ?Stage five ? | ? Stage five ?+ ---+ ---+ -------+ *Each stage assumes the associated GFR level has been in effect for at least three months. ?Stages 1 to 5, with or without kidney disease, indicate chronic kidney disease. Notes: Determination of stages one and two (with eGFR >59mL/min/1.73 m2) requires estimation of kidney damage for at least three months as defined by structural or functional abnormalities of the kidney, manifested by either:Pathological abnormalities or Markers of kidney damage (including abnormalities in the composition of the blood or urine or abnormalities in imaging tests). Lab Interpretation Abnormal (test code = 39862-3) [facility] [id number] 18:07:00 Test Item Value Reference Range Interpretation Comments Blood Culture Cutibacterium Organism iden tified Workup (test (Propionibacterium) by DNA code = 600-7) avidum probeAdditiona l work-up perform ed only per reques t. Culture plate(s ) will be saved until this date: - 020 Gram stain Isolated from This is an chemo ended (test code = anaerobic bottle report. The se results 664-3) Gram positive cocci have bee n appended to a previously preliminary mikal ified report. [facility] WITH [id number] 11:45:00 Test Item Value Reference Range Interpretation Comments WBC (test code = See_Comment H [Automated 6690-2) message] The sy stem which generated this result transmitted reference range : 4.30 - 11.10 10*3/?L. The reference range was not used to interpret this result as normal/abnormal . RBC (test code = See_Comment L [Automated 789-8) message] The sy stem which generated this result transmitted reference range : 3.93 - 5.25 10*6/?L. The reference range was not used to interpret this result as normal/abnormal . HGB (test code = 7.8 g/dL 11.6-15 L 718-7) HCT (test code = 23.6 % 35.7-45.2 L 4544-3) MCV (test code = 91.8 fL 80.6-95.5 787-2) MCH (test code = 30.4 pg 25.9-32.8 785-6) MCHC (test code = 33.1 g/dL 31.6-35.1 786-4) RDW-SD (test code = 44.3 fL 39-49.9 80043-2) RDW-CV (test code = 13.3 % 12-15.5 788-0) PLT (test code = See_Comment H [Automated 777-3) message] The sy stem which generated this result transmitted reference range : 166 - 358 10*3/ ?L. The reference r carlitos was not used to interpret this result as normal/abnormal . MPV (test code = 8.9 fL 9.5-12.9 L 34113-3) NRBC/100 WBC (test See_Comment [Automat ed code = 7322022387) message] The system which generated this result transmitted reference range : 0.0 - 10.0 /100 WBCs. The refer ence range was not u sed to interpret th is result as normal/abnormal . NRBC x10^3 (test code <0.01 See_Comment [Auto mated = 6728560850) message] The s ystem which generated this result transmitted reference range : 10*3/?L. The reference range was not used to interpret this result as normal/abnormal . GRAN MAT (NEUT) % 74.7 % (test code = 770-8) IMM GRAN % (test code 6.60 % = 9042283400) LYMPH % (test code = 11.4 % 736-9) MONO % (test code = 5.0 % 5905-5) EOS % (test code = 2.0 % 713-8) BASO % (test code = 0.3 % 706-2) GRAN MAT x10^3(ANC) 9.02 10*3/uL 1.88-7.09 H (test code = 2319185474) IMM GRAN x10^3 (test 0.80 10*3/uL 0-0.06 H code = 7864056562) LYMPH x10^3 (test code 1.37 10*3/uL 1.32-3.29 = 731-0) MONO x10^3 (test code 0.60 10*3/uL 0.33-0.92 = 742-7) EOS x10^3 (test code = 0.24 10*3/uL 0.03-0.39 711-2) BASO x10^3 (test code 0.04 10*3/uL 0.01-0.07 = 704-7) Lab Interpretation Abnormal (test code = 79821-5) [facility] METABOLIC PANEL (NA, K, CL, CO2, GLUCOSE, BUN, CREATININE, CA)2019-11-01 11:29:00 Test Item Value Reference Range Interpretation Comments NA (test code = 135 mmol/L 135-145 7066955776) K (test code = 3.6 mmol/L 3.5-5 6444178754) CL (test code = 105 mmol/L 98-108 5525064705) CO2 TOTAL (test code = 29 mmol/L 23-31 3515201580) AGAP (test code = 2-16 L 6588309458) BUN (test code = 16 mg/dL 7-23 5779714032) GLUCOSE (test code = 106 mg/dL 70-110 7481218298) CREATININE (test code = 0.96 mg/dL 0.5-1.04 4993097841) CALCIUM (test code = 8.3 mg/dL 8.6-10.6 L 2518925599) eGFR Calculation mL/min/1.73m2 (Non-) (test code = 6749649014) eGFR Calculation mL/min/1.73m2 () (test code = 1442811833) SADIE (test code = SADIE) Association of Glomerular Filtration Rate (GFR) and Staging of Kidney Disease* + --+ --+ ------+| GFR (mL/min/1.73 m2) ?| With Kidney Damage ?| ?Without Kidney Damage+ --------+ --------+ +| ?>90 ?| ?Stage one ?| ? Normal ?+ ---+ ---+ -------+| ?60-89 ?| ?Stage two ?| ? Decreased GFR ? + --+ --+ ------+| ?30-59 ?| ?Stage three ?| ? Stage three ? + --+ --+ ------+| ?15-29 ?| ?Stage four ? | ? Stage four ?+ ---+ ---+ -------+| ?<15 (or dialysis) ? ?| ?Stage five ? | ? Stage five ?+ ---+ ---+ -------+ *Each stage assumes the associated GFR level has been in effect for at least three months. ?Stages 1 to 5, with or without kidney disease, indicate chronic kidney disease. Notes: Determination of stages one and two (with eGFR >59mL/min/1.73 m2) requires estimation of kidney damage for at least three months as defined by structural or functional abnormalities of the kidney, manifested by either:Pathological abnormalities or Markers of kidney damage (including abnormalities in the composition of the blood or urine or abnormalities in imaging tests). Lab Interpretation Abnormal (test code = 06438-4) [facility] [id number] 22:17:51 Interval removal of right basilar chest tube. There appears to be a smallright apical pneumothorax,similar to slightly increased in size comparedto the most recent prior chest x-ray. This was discussed with Dr. Galdamez at 5:16 PM on [address] Bill Rubin. Stable right apical chest tube position with unchanged right basilaropacity and small pleural effusion. Preliminary Report Dictated by Resident: Bill Lerma MD., have reviewed this study and agree with the abovereport.XR CHEST 1 VW Comparison: Radiograph 2019 History: s/p chest tube pull out. Findings: There is been interval removal of a chest tube from the right lateral lungbase with the right apical ch est tube in unchanged position. Small foci ofsubcutaneous emphysema. Patchy right basilar opacities and right-sided pleural effusion areunchanged compared to prior radiograph. There appears to be a small rightapical pneumothorax. The cardiomediastinal silhouette is normal in size. No acute osseous abnormality is present. [facility], Radiant Results Inft User - 2019 5:23 PM CDTXR CHEST 1 VWComparison: Radiograph 2019History: s/p chest tube pull out. Findings:There is been interval removal of achest tube from the right lateral lungbase with the right apical chest tube in unchanged position. Small foci ofsubcutaneous emphysema.Patchy right basilar opacities and right-sided pleural effusion areunchanged compared to prior radiograph. There appears to be a small rightapical pneumothorax.The cardiomediastinal silhouette is normal in size. No acute osseous abnormality is present.IMPRESSIONInterval removal of right basilar chest tube. There appears to be a smallright apical pneumothorax, similarto slightly increased in size comparedto the most recent prior chest x-ray. This was discussed with Dr. Galdamez at 5:16 PM on [address] Bill Rubin.Stable right apical chest tube position withunchanged right basilaropacity and small pleural effusion.Preliminary Report Dictated by Resident: Bill Serrano MD., have reviewed this study and agree with the abovereport.[facility] [id number] 16:01:00 Test Item Value Reference Range Interpretation Comments Blood Culture-Aerobic No organisms No growth Previo us (test code = 60598-6) isolated prelim inary verified result was Culture In Progress on 10/26/2019 at 14 01 CDTPrevious preliminary verified result was No growth a t 24 hours on 10/27/2019 at 11 01 CDTPrevious preliminary verified result was No growth a t 48 hours on 10/28/2019 at 11 01 CDTPrevious preliminary verified result was No growth a t 72 hours on 10/29/2019 at 11 01 CDT Blood No organisms No growth Previous Culture-Anaerobic isolated preliminar y (test code = 23294-1) verifi ed result was Culture In Progress on 10/26/2019 at 14 01 CDTPrevious preliminary verified result was No growth a t 24 hours on 10/27/2019 at 11 01 CDTPrevious preliminary verified result was No growth a t 48 hours on 10/28/2019 at 11 01 CDTPrevious preliminary verified result was No growth a t 72 hours on 10/29/2019 at 11 01 CDT Lab Interpretation Normal (test code = 21824-4) [facility] [id number] 14:38:00 Test Item Value Reference Range Interpretation Comments Case Report (test code Surgical Pathology ? ? = [id number]) ?Case: [id number] ? Authorizing Provider: ?Kendrick Eller MD ? ? ?Collected: ? 10/28/2019 1529 ?Ordering Location: ? ? [facility] Post Received: ?10/28/2019 1534 ? Anesthesia Care Unit ? Pathologist: ? Muthukumarana, ? MD Yolis ?Specimen: ? ?PLEURAL, RIGHT, PLEURAL RIND ? Final Diagnosis (test t2azdKTdSGSbp6kwDEXndZ code = 0575788682) FuZzEwMzNcZnRuYmpcdWMx HFwdwxUnOJhya8SbF3FjRf AwMFxhbnNpXGRlZmxhbmcx CIXoZPK9tuIuJKPcISxySN ZtTFfrYu0jjLMllDjhUqEf WLOyu6kezxIPuzzroMv6e6 zbLYPsYlC4qKUgVXggF8rs eiVvjZLfGYIzYCa0oK86NV JefA3qfFQaUIvmdpGeWwJ2 GEiqPSCeRpG9WSWmwAWyMD BuY2hhTDWyIQfdNYUwOKoc aEXmIEB8hAoix4P5mCJyaT NgsEdiKaMkFbMaQWYPy5Af JKz2tUvcJ8PkALDdRvU1xG QgUGFyYWdyYXBoIEZvbnQ7 lM23QYkixgP8aXJmf1Rxk4 6ex914pN1ulPEfFDW3DDGk KBLqnVNlHUPxTAQ4RASueD GoP4hqMSyzTE2xqbjjWGT0 MFxtYXJndDcyMFxtYXJnYj TmmALqSHTtpTovLHbly248 CPY9VhRdZH7xM7Ryb6Q1jK 9maXRcZGVmdGFiNzIwXGZv vs2psEGsYTdkg2WuZJM5yl A8gUZohSLmDTPrZO67Ezgg w3LxDqijUOC3JGKabqFst3 Oba8nyFpFsqbSeK7tzC4Fw ZHJoZWFkXHBnYnJkcmZvb3 Jag0BnkMOesCv9j8ooPBWc FBPkxNynm0mgOCM2IJRcV8 K7tVIgn1ihDIpyZIEtrYQ4 bsZkMZDlcZHgD6ZawZ9dLB jnQD5fajs5w7etIoVbDN7h htpuo8byKRgjXIHpKSS8Iq FeDBExr0GwmzarZnOvq2Ds oOWtORbhA01dm103AWIqtf LhQ1rsnJFwmbynbYAffjua JDsaqaV1BTVbUYAwVYzbWF YxXGZzMjBcbGFuZzEwMzNc aGljaFxmMVxkYmNoXGYxXG wvF8mbIyKvGhCeJDfwOZXf GP1xLLgQXMGIJWLRQSkDIS xaDRjJMLPNT135ZTDmvsQb TKKvSKSSFEWBQS4MOTDtXx FEKs7EMBFpRK3GIOcUZY6M GBWUCQ4DBLPFG4FEAVphLM QhHDSeFI2cAg4yDrjAAkjK FXZFHEVEMDfxQNgVX3JVVH aKMF8POIUFALLsgVIfSMHk JVNtHY3TIS2GPNwNQdXLA5 kgSURFTlRJRklFRFxwYXIg ICYcRG8xV1FPOVKVLI0BDj RccGFyXHBhclxwbGFpblxm MVxmczIyXGxhbmcxMDMzXG epO9esRzSxSJKhvFzjDUeo q4OuVURwUAChEaeeevXsRD Khx9hoCLQ2tu6mhpqaQD0w IERPXHBsYWluXGYxXGZzMj BcbGFuZzEwMzNcaGljaFxm OYyuHrFpFTIgEZxgE8hhHd HoBsReALlpCIY5r3gftGVb XHNzdGVjZjIyMDAwXGFuc2 lcZGVmbGFuZzEwMzNcZnRu AfhohOWnNGPnEfLbf1tox3 52aEDay2cvRVRjQbF1aGTr EIUemYhzlcd4rZkgDoRgZL Nkb7rjhfUeBsHdWKDdSZQy TGTcdISrM406f9fuf0sgsr FhvOZ4TJVmDQJ0IEywpoYb duO1RGrimEZwAzX7WCrapa WvRAgaqnTcwmGxEdn6TTUn T530IZI9dOqkg1wwOOR6MN BxVVWfAlVuCf7lrLSqD360 OJGpEQDLRMEqrTg7ADMygz TwdzSdgIZFw630T680g6fr MFXeeoWdrVoPhqihu5boE0 19XHBhcGVydzEyMjQwXHBh pSAkvWP3JAJuZI9bkabgUL jnMMlrAGDxgrF1MQWrgQEr F5NeVFHaKK4slngcQRS8CJ xdGZErPKK7OeJuGYXlj7Dv wmf1PyLfqd2pdx91XGB2e5 YcbKcuGWU1CQQ9YaRxTu5g vJQeCFGdUQ9alXdtt22bFE ZfLQ0mcP8kkj2xhpBrWXha yBSwrAF1hawcULX6JWSqwj Krd9Jsy2xdQoJoshCkX0xr O8WnSKEhFOHpDIQlEyBniw Xul4Xwa6QvsXCkuRe2u7gh NXWvVTXvlQkdf4tvERL8HB WjL2W1iPHuh2jtZShzSVSz vBU3wkC9YDSuzZBlO5WhjB 3vMXDcAO0vfji4b1fbUJF5 PHzoGAAwLgT7smD0GCXpiM RtLROuyJmrDRtxx274HEZ5 DtInICXxf8YqZ4PwzLtsJ8 1tgVqxM18xVCCxoMjroD3r tJxyjA5tHnXiOcYvDQguWI MdPKHhkXKkEHX8uGPjtuDm cAUkfLEqZTPzZDsuNNZ3xR BhclxwbGFpblxmMVxmczIw QHhttykgFTMaYTniM2dbIc DlORRegGbbQBpcd3RsHGSv RNYzKndhypTqPSh3zuDpOL BhjnXQZXdlcnLwdBRve00x YWxseSByZXZpZXdlZCBhbG yze9WdG9gfKR9bW7WhxPDv zrBqugHeUEzmULEcc6h6gS RegTgtm8JkkVUvIP67ktOt ZKAnISQ9EFWig9fnDP06zy bkUwZwtS90hlAoogHgIKLv g6voR7erjQMco3Tka8Ythx IyNJgqm8PaYN6jlFBrdxie mUQ5XNGabINkcgPbtlF1kS lxGPClsN0lhO6nlQpcjW3y NpEgRcZyNYefJY9iNAErD8 bbzDGjWNSjDINbG3anEjUw rL9apJghOHicLaPkMhJjAS xwYXJccGFyXHBhclxzYTE2 XEgmoYP7SEqxkT48yJTqKX BsYWluXGYwXGZzMjRccGxh rW5pAzFmErVlEXnrON1zLU JfV9jcbJUcGIAcZCOfY2vp WiVsoX3jpDeqWXnqAoUbAv FbFStctUZaxSFWLYVyj0gy F5lbpATkgq8eCDFdbM5aYI krQ48znB0wHV67EOXorpVe dt1oOLUgjRRHWJ1IYMreXX a2LMYPnKM8AECeaDI2swbn MxR4IGPTdVxhVLFgHDQ0JO riE729cNiyLFbpNQn6RDKN jZZ5YLWKRKW0MoI2Y0tdfK FpblxmMVxmczIwXGxhbmcx TEGwYDgmV4uzWgNjPWSjsH iqVXchi0FeUZNpBSQbAyon lyAtSSt0boWrBGMnty39 Final Diagnosis Comment d4vrrRRfQXXsnSBwPkVeLU (test code = PlQALpo2pkPITzkJSmCqQn [id number]) MzNcZnRuYmpcdWMxXGRlZm Eha8wly373kFCwk0xuZJMf QjE9jXOpWHJclEXrH224HV RmTQjaz2kaw6CwVFBtbRPi k6B0NGGNkjeutZw6sHwpC6 1qn3L8PbllY2mcDGWlQXUi J1IxNO1pQBOnZgn9VUV2II Z9XUUvGTWwH6YlKM1wJYSd oWWfHOq0o2ajoXfvXJLqTG B4u5hfRViuzqTjIN8zxe6x tOg2h4gyvyZoBWLuACDmdU GRKHVfS9PusVhcLn5uuWp1 xXvfPurpFML3Qpo7DE3jlh 87ifp4sFbnOXVbuqcqOdE3 XEsiGOFetljlKLg8AJoeMX GiuYTgKYZwuNGcA2BoLAct MR5ooak3VoPpTA0tnmkbVX wqLXAeGCE3VaUpFHZsz0Ra jsjpHxSdfa3ehv30EEP4e7 IuaBbtUNH3JLU5MrEqAw5g vPYnTXWnWZ0cVdDjxOQoCJ Vsyz80yVaqTYujjeWkeP2s DwMpNMQdxBVmFQHvCR4mwF SePCGtzO7cmyxyDRCfTiDf kkrhODHqyErxewEfGc3nwF xpAZR1OPyzT0fqsF0sWjL3 GNlaU6xpyK5wXTd7MMfnnC E4TVKjpH4xEY5larlbr0is SBQ4MTvvNSVqguM2jzErOE LxkNQfU8NxvA68EoKsxCWi I9JpiI7vQGzuFQZyypj2De UsYp5zjQWklEZ7EJciHpan YWdlXHBnbmNvbnRccGduZG VjXHBsYWluXHBsYWluXGYw WABvRcBwkFvphQcttZ7sYr NhVtTjFItfVQ5uOERbE7ah rKFaWLYqFQXbT2ofEvYbsN 9jaFxmMVxmczIwXHBhciBB MIVomZAasOiyjR3xhM7whS 9wfHtfhI1apUNmlJYlxUUj cIIrchOutqSrflWkh8ZvIR Gbd98lEbtsZ2jhMUOsAU1t ZErpRA6zE0G6eXVkTwKetG DcMMOldzEVgXvjU62buFEo gEFbFBCaMXOvgkqbo3WjJS OdAWHodeAtNYOmza9pdwfb dGUuIFxwYXJ9 Clinical Information Pleural effusion [J90] (test code = [id number]) Gross Description (test i7mutYYjUDCgtEYpBkUfMH code = [id number]) IlWTKzg6ieVIBuyWTgDmIm MzNcZnRuYmpcdWMxXGRlZm Kcw1ils051eIVir6ccCJNv ZeX5gZLgGNSacAHzY556JE TnEEnen3tgb3UjYNMjjZUy r7E9KQDCfzdjdFz7yRneM7 6wy5E9FghvY4phJLUaFDvo BCNyROphtBImNIS9PGKjPF S8ABscxgRbkkZ6ZTnerUSr AfX2PRy9s4npyBzyRWBtWH Y9h6xlRJfgvaJhFR1gwl3h lSs9j3gwkdLbECHtMNTtzO LHECTbB2KqkCifGw4qdZp8 kMeiRealHMM9Nhr4PF6vcy 71sqw7qFpdTEAprsvoKnF9 SLvbEWAfzuqhDWb1PVenYV ZcwQGcUECqeXAwB5RcNEse XE1titb8NwTiUG5fxfctFM wjCWZtWPL9PmZrSEItl2Rj govtPtTzyx2hkg74VGD8o4 LuiCekNLE4XWY5DaPqQh6q eITzIYFzMH6vBySwdBGbPN Pegm61gNijMXmuwlZttH8c GrBwAFTrvBFnOAWrIK3zhU VuPIIkiB5wvvesBFLsUhGt flvdNMRzyJmxxaFqUe5gvV msRJB4TVptM4nsaN7bSfY6 GEkmT5whkF9fGMq2HMjwoL G3WBJakG5oML1isnrmg4el SOQ4MHufIDAqkzT7wzFpPA DqzKUlA2TdgK12TvPaqYBu J3BllN9oUSyoWVWjybm3Gr WwQp6drCFguPU2BOqlEwcu YWdlXHBnbmNvbnRccGduZG VjXHBsYWluXHBsYWluXGYw UCXqUkYlfInaxGmodL0sTf BcZnMyMFxwbGFpblxmMVxm czIwIFNwZWNpbWVuIEEgaX RctzQzUNo2XPDvNnRtv3nj dMGzKSmcPUC5uJClJHTmdC anvhDlhnZrTZ7uLGVPILUn sJ5eDDShWZQbaYU6zaTpYJ IalLlotUIcBP1pFQOkkuXo k4RtFM0xHPPcjdEpAEFyho jbHg6nOGbbcQWmQE8jluBv TFwkEuEnssJtX0MzGEOgw7 2ovUR6xRAgxGKoPeGqJ66r bnRzICgxLjcgeCAxLjAgeC IhSoHsO09qTK3gFBPtHQO5 IOSwPAE5EBVeYLUojRcbHQ StUZCkbAAkrD3maiGowxWa ITHzMAbgxDSyATY8zL6iKJ SlgL1mlbU5KQPsRDSygwVa x92hK6Mlo5AaLJN4rFWodD HdNKGolv4kRYvuVVIfJSAq gVEpQHqmYTI7Yw9wpRDlFD BlbnRpcmVseSBpbiBBMSAo Rwsrs2UhiSRmg5EcSTVuWf DoC02ikrKxBFHsZNfmGFGh YFIvVqZrmWqpPMAsCJd6Oc xwbGFpblxmMVxmczIwIEEy QBrbSKKxihZzfIJfe3WnNH UlSrUnR98rtoLyVypeCTNe xILfMR3gx1L0JSnpepNhuW bbDPF8iGHNTNW3nAXhoeOo dLCeNZp3nIjaLZ1uNUltEE 6zrKlvLQXeJOVQE9AwCWUd cn0= Embedded Images (test code = [id number]) [facility] [id number] 13:27:50EXAM: XR CHEST 1 VW HISTORY: chest tube COMPARISON: None. FINDINGS: The chest tubes draining the pleural space on the right are unchanged inposition. Similarly unchanged is the laterally loculated pleural effusionand the fluid obscuring the right hemidiaphragm and increasing the opacityof the right lower lung. The right upper lung and the left lung are clear.The heart and great vessels are normal. The appearance of the chest islittle changed since yesterday. ? [facility], Radiant Results Inft 2019 8:29 AM CDTEXAM: XR CHEST 1 VWHISTORY: chest tube COMPARISON: None.FINDINGS:The chest tubes draining the pleural space on the right are unchanged inposition. Similarly unchanged is the laterally loculated pleural effusionand the fluid obscuring the right hemidiaphragm and increasing the opacityof the right lower lung. The right upper lung and the left lung are clear.The heart and great vessels are normal. The appearance of the chest islittle changed since yesterday.[facility]/ANAEROBIC)2019 13:27:00 Test Item Value Reference Range Interpretation Comments Aspirate or No aerobic/anaerobic Abscess Culture organisms isolated (test code = 26751-6) Gram stain (test Occasional (Rare) code = 664-3) Polymorphonuclear leukocytes [facility] METABOLIC PANEL (NA, K, CL, CO2, GLUCOSE, BUN, CREATININE, CA)2019 11:40:00 Test Item Value Reference Range Interpretation Comments NA (test code = 138 mmol/L 135-145 9361280337) K (test code = 3.4 mmol/L 3.5-5 L 9078520692) CL (test code = 107 mmol/L 98-108 2629408440) CO2 TOTAL (test code = 26 mmol/L 23-31 1273430797) AGAP (test code = 2-16 6573165750) BUN (test code = 23 mg/dL 7-23 2538436622) GLUCOSE (test code = 96 mg/dL 70-110 8610215478) CREATININE (test code = 1.01 mg/dL 0.5-1.04 3909404052) CALCIUM (test code = 8.6 mg/dL 8.6-10.6 6723113783) eGFR Calculation mL/min/1.73m2 (Non-) (test code = 6949332092) eGFR Calculation mL/min/1.73m2 () (test code = 2127464956) SADIE (test code = SADIE) Association of Glomerular Filtration Rate (GFR) and Staging of Kidney Disease* + --+ --+ ------+| GFR (mL/min/1.73 m2) ?| With Kidney Damage ?| ?Without Kidney Damage+ --------+ --------+ +| ?>90 ?| ?Stage one ?| ? Normal ?+ ---+ ---+ -------+| ?60-89 ?| ?Stage two ?| ? Decreased GFR ? + --+ --+ ------+| ?30-59 ?| ?Stage three ?| ? Stage three ? + --+ --+ ------+| ?15-29 ?| ?Stage four ? | ? Stage four ?+ ---+ ---+ -------+| ?<15 (or dialysis) ? ?| ?Stage five ? | ? Stage five ?+ ---+ ---+ -------+ *Each stage assumes the associated GFR level has been in effect for at least three months. ?Stages 1 to 5, with or without kidney disease, indicate chronic kidney disease. Notes: Determination of stages one and two (with eGFR >59mL/min/1.73 m2) requires estimation of kidney damage for at least three months as defined by structural or functional abnormalities of the kidney, manifested by either:Pathological abnormalities or Markers of kidney damage (including abnormalities in the composition of the blood or urine or abnormalities in imaging tests). Lab Interpretation Abnormal (test code = 65748-0) [facility] WITH [id number] 11:18:00 Test Item Value Reference Range Interpretation Comments WBC (test code = See_Comment H [Automated 6690-2) message] The sy stem which generated this result transmitted reference range : 4.30 - 11.10 10*3/?L. The reference range was not used to interpret this result as normal/abnormal . RBC (test code = See_Comment L [Automated 789-8) message] The sy stem which generated this result transmitted reference range : 3.93 - 5.25 10*6/?L. The reference range was not used to interpret this result as normal/abnormal . HGB (test code = 7.8 g/dL 11.6-15 L 718-7) HCT (test code = 23.0 % 35.7-45.2 L 4544-3) MCV (test code = 93.1 fL 80.6-95.5 787-2) MCH (test code = 31.6 pg 25.9-32.8 785-6) MCHC (test code = 33.9 g/dL 31.6-35.1 786-4) RDW-SD (test code = 47.0 fL 39-49.9 86979-3) RDW-CV (test code = 13.8 % 12-15.5 788-0) PLT (test code = See_Comment H [Automated 777-3) message] The sy stem which generated this result transmitted reference range : 166 - 358 10*3/ ?L. The reference r carlitos was not used to interpret this result as normal/abnormal . MPV (test code = 8.7 fL 9.5-12.9 L 84172-4) NRBC/100 WBC (test See_Comment [Automat ed code = 9949073533) message] The system which generated this result transmitted reference range : 0.0 - 10.0 /100 WBCs. The refer ence range was not u sed to interpret th is result as normal/abnormal . NRBC x10^3 (test code See_Comment [Auto mated = 3961589819) message] The s ystem which generated this result transmitted reference range : 10*3/?L. The reference range was not used to interpret this result as normal/abnormal . GRAN MAT (NEUT) % 70.9 % (test code = 770-8) IMM GRAN % (test code 7.30 % = 6244051452) LYMPH % (test code = 14.0 % 736-9) MONO % (test code = 5.9 % 5905-5) EOS % (test code = 1.6 % 713-8) BASO % (test code = 0.3 % 706-2) GRAN MAT x10^3(ANC) 8.22 10*3/uL 1.88-7.09 H (test code = 8967494133) IMM GRAN x10^3 (test 0.85 10*3/uL 0-0.06 H code = 3258486499) LYMPH x10^3 (test code 1.62 10*3/uL 1.32-3.29 = 731-0) MONO x10^3 (test code 0.68 10*3/uL 0.33-0.92 = 742-7) EOS x10^3 (test code = 0.19 10*3/uL 0.03-0.39 711-2) BASO x10^3 (test code 0.04 10*3/uL 0.01-0.07 = 704-7) Lab Interpretation Abnormal (test code = 89091-4) [facility] 18:39:00 Test Item Value Reference Range Interpretation Comments POCT GLU (test code = 0396357299) 90 mg/dL 70-110 Lab Interpretation (test code = Normal 85051-6) [facility] 1 [id number] 13:53:38 Interval decrease in right-sided pleural effusion with improved aeration inthe right middle lobe. Preliminary Report Dictated by Resident: Lili Bezold I, Peeyush ?Toni, MD., have reviewed this study and agree with theabove report.EXAM: XR CHEST 1 VW 10/30/2019 3:57 AM HISTORY: 63 years-old Female with history of right-sided pleural effusionwith pneumonia, evaluate for chest tube COMPARISON: 10/29/2019, 10/28/2019 TECHNIQUE: AP view of the chest. FINDINGS: Lines/tubes: Stable positioning of two left lower chest tubes. Small interval decrease in right-sided pleural effusion with improvedaeration in the right middle lobe. There is no focal consolidation, orpneumothorax. The cardiomediastinal silhou ette is stable. ?No acute osseousabnormalities. [facility], Radiant Results Inft User - 10/30/2019 8:54 AM CDTEXAM: XR CHEST 1 VW 10/30/2019 3:57 AMHISTORY: 63 years- old Female with history of right-sided pleural effusionwith pneumonia, evaluate for chest tube COMPARISON: 10/29/2019, 10/28/2019TECHNIQUE: AP view of the chest.FINDINGS:Lines/tubes: Stable positioning of two left lower chest tubes.Small interval decrease in right-sided pleural effusion with improvedaeration in the right middle lobe. There is no focal consolidation, orpneumothorax.The cardiomediastinal silhouette is stable. No acute osseousabn ormalities.IMPRESSIONInterval decrease in right-sided pleural effusion with improved aeration inthe right middle lobe.Preliminary Report Dictated by Resident: Paulo Jones MD., have reviewed this study and agree with theabove report.[facility]2019-[facility]-30 13:34:00 Test Item Value Reference Range Interpretation Comments POCT GLU (test code = 117 mg/dL 70-110 H Notifi ed Provider [id number]) Lab Interpretation (test Abnormal code = 56449-0) [facility] WITH [id number] 07:32:00 Test Item Value Reference Range Interpretation Comments WBC (test code = See_Comment H [Automated 4290-2) message] The system which generated this result transmit mary kay reference range : 4.30 - 11.10 10*3/?L. The reference range was not used to interpret this result as normal/abnormal . RBC (test code = See_Comment L [Automated 789-8) message] The system which generated this result transmit mary kay reference range : 3.93 - 5.25 10*6/?L. The reference range was not used to interpret this result as normal/abnormal . HGB (test code = 7.9 g/dL 11.6-15 L 718-7) HCT (test code = 23.3 % 35.7-45.2 L 4544-3) MCV (test code = 90.7 fL 80.6-95.5 787-2) MCH (test code = 30.7 pg 25.9-32.8 785-6) MCHC (test code = 33.9 g/dL 31.6-35.1 786-4) RDW-SD (test code = 45.1 fL 39-49.9 99804-5) RDW-CV (test code = 13.7 % 12-15.5 788-0) PLT (test code = See_Comment H [Automated 777-3) message] The system which generated this result transmit mary kay reference range : 166 - 358 10*3/ ?L. The reference range was not u sed to interpret th is result as normal/abnormal . MPV (test code = 8.9 fL 9.5-12.9 L 73066-0) NRBC/100 WBC (test See_Comment [Automat ed code = 0623986739) message] The system which generated this result transmit mary kay reference range : 0.0 - 10.0 /100 WBCs. The reference range was not used to interpret this result as normal/abnormal . NRBC x10^3 (test code <0.01 See_Comment [Auto mated = 5718432797) message] The system which generated this result transmit mary kay reference range : 10*3/?L. The reference range was not used to interpret this result as normal/abnormal . GRAN MAT (NEUT) % 75.4 % (test code = 770-8) IMM GRAN % (test code 7.40 % = 3397026677) LYMPH % (test code = 11.7 % 736-9) MONO % (test code = 4.9 % 5905-5) EOS % (test code = 0.3 % 713-8) BASO % (test code = 0.3 % 706-2) GRAN MAT x10^3(ANC) 14.32 10*3/uL 1.88-7.09 H (test code = 9931756655) IMM GRAN x10^3 (test 1.41 10*3/uL 0-0.06 H code = 4646942311) LYMPH x10^3 (test code 2.23 10*3/uL 1.32-3.29 = 731-0) MONO x10^3 (test code 0.93 10*3/uL 0.33-0.92 H = 742-7) EOS x10^3 (test code = 0.05 10*3/uL 0.03-0.39 711-2) BASO x10^3 (test code 0.05 10*3/uL 0.01-0.07 = 704-7) TOXIC CHANGES (test Present A code = 803-7) Lab Interpretation Abnormal (test code = 95448-8) [facility] METABOLIC PANEL (NA, K, CL, CO2, GLUCOSE, BUN, CREATININE, CA)2019-10-30 07:30:00 Test Item Value Reference Range Interpretation Comments NA (test code = 136 mmol/L 135-145 1831892350) K (test code = 3.3 mmol/L 3.5-5 L 2744718530) CL (test code = 105 mmol/L 98-108 7771951268) CO2 TOTAL (test code = 28 mmol/L 23-31 9254907888) AGAP (test code = 2-16 5307515118) BUN (test code = 29 mg/dL 7-23 H 9326226117) GLUCOSE (test code = 103 mg/dL 70-110 3928188285) CREATININE (test code = 1.02 mg/dL 0.5-1.04 2312568060) CALCIUM (test code = 9.0 mg/dL 8.6-10.6 4349229534) eGFR Calculation mL/min/1.73m2 (Non-) (test code = 1307027909) eGFR Calculation mL/min/1.73m2 () (test code = 3244228472) SADIE (test code = SADIE) Association of Glomerular Filtration Rate (GFR) and Staging of Kidney Disease* + --+ --+ ------+| GFR (mL/min/1.73 m2) ?| With Kidney Damage ?| ?Without Kidney Damage+ --------+ --------+ +| ?>90 ?| ?Stage one ?| ? Normal ?+ ---+ ---+ -------+| ?60-89 ?| ?Stage two ?| ? Decreased GFR ? + --+ --+ ------+| ?30-59 ?| ?Stage three ?| ? Stage three ? + --+ --+ ------+| ?15-29 ?| ?Stage four ? | ? Stage four ?+ ---+ ---+ -------+| ?<15 (or dialysis) ? ?| ?Stage five ? | ? Stage five ?+ ---+ ---+ -------+ *Each stage assumes the associated GFR level has been in effect for at least three months. ?Stages 1 to 5, with or without kidney disease, indicate chronic kidney disease. Notes: Determination of stages one and two (with eGFR >59mL/min/1.73 m2) requires estimation of kidney damage for at least three months as defined by structural or functional abnormalities of the kidney, manifested by either:Pathological abnormalities or Markers of kidney damage (including abnormalities in the composition of the blood or urine or abnormalities in imaging tests). Lab Interpretation Abnormal (test code = 25149-3) [facility] GLUCOSE (AUTOMATED)2019-10-30 02:06:00 Test Item Value Reference Range Interpretation Comments POCT GLU (test code = 8297311285) 177 mg/dL 70-110 H Lab Interpretation (test code = Abnormal 05911-5) [facility] GLUCOSE (AUTOMATED)2019-10-29 23:26:00 Test Item Value Reference Range Interpretation Comments POCT GLU (test code = 112 mg/dL 70-110 H Notifi ed Provider [id number]) Lab Interpretation (test Abnormal code = 14384-1) [facility] [id number] 22:18:00 Test Item Value Reference Range Interpretation Comments Case Report (test code Non-Gynecologic = 0898694757) Cytology ?Case: [id number] ?Authorizing Provider: ?Kendrick Eller MD ? ? ?Collected: ? 10/28/2019 1218 ?Ordering Location: ? ? [facility] OR ? Received: ?10/28/2019 1551 ? Department ? Pathologist: ? He, Lucia, ? Specimen: ? ?PLEURAL, RIGHT, EFFUSION ? Final Diagnosis (test g9yvqVJgBDAft2xzMIUsyM code = 7153125801) FuZzEwMzNcZnRuYmpcdWMx TOkzxiUqBIlrv0KkB8RbNn AwMFxhbnNpXGRlZmxhbmcx YGDyUCN4mlRzZECpHJqnMQ SyAUxdFr0bnEWmyCrqJmRb MLMwb2ytwgMIkuwivUl4n8 whSLAdHwF3pPLzLNknC0fu zlBzrNWfLOJsIRi9tR82NS XbcX7woKAtNBwlchCfTDrt gmHugmDmOob4MPOrM8nfDN LpLGUcP9ZxRM8cFVQvKlw1 WGW0RWK2qXaku0I4wSHfqM RvuKhpPlDqMhXoOCXOc7Kg HJb0sAgbH2HpKDLxVaZ2eH QgUGFyYWdyYXBoIEZvbnQ7 jW71LOjnokO6rOWgr7Ngr6 3ft997iE1ruRPkSMJ8HTUt TMTmvOZwHKCcMIU2QIByiQ GdZ6tnFIcyUY2vayrdGTV7 MFxtYXJndDcyMFxtYXJnYj KuwKGmHUZvtNekGZavf616 IKZ4VnBoCC7nB0Nqm2D1dZ 9maXRcZGVmdGFiNzIwXGZv ev7sqWKcDCuhj2DfPMR7po S1rWIqzHWiGVOqJV27Nkpx k7XkIuvkIZH2ZNXgfxPia7 Yve2uoXwZzxdJzH9fnF7Sg ZHJoZWFkXHBnYnJkcmZvb3 Gei8IekCCglOa8m9zoRQQe KMGffFeos4neDSM4NOVoW0 F7qANxy3blJGpaUQAvdIH9 hiHqJHCmyAVtZ3PowC6dGE wmGX3fekk8y6fwJpDwWE3i cijgo2cxOGfmRRJvOGB4Es DlXNNdg0QkewthYpHut5Sq bIAwGVuiJ50uk275IGHfbc VeL1uokJPlfxozpPJbziri MFxmczIwXHBhcmRccGxhaW 5cZjBcZnMyMFxwbGFpblxm MVxmczIwXGxhbmcxMDMzXG jtX6viVfKlMPPgkDvlHFmv f4QgIAUeQRTmSYnasaRuEW NoTL5bBENDKPXNWYgcSybT HDA0CMVWU4XPL1YCLDRBZE MgRkxVSURccGFyICAgICAg LX6cUEVFDUSeLZ9BJIBXDS ZLZZ6SELKMGnAHP79ZCaJH SKdPIUSFUN2YQR8EUS3IDN ZQN6TJCWgDUVNaenJrDVDi NQIrGQ6UUO9PUSeAVvPKVU BDRUxMUyBJREVOVElGSUVE IFxwbGFpblxmMVxmczIwIC mbK0QZXCTLIF7QXtHsYRZl kw42OLA9HoSdd9I8LIIvIc GlXMEbRU9mePvzQBShIN5r SNEbQ5wyaK6zjwc2RpRdQX OkVpO7GCEwlsA5Deq5AQEt KVxwh1ojj2CoB1QljBWhuU k8f9ohNPHrWgG4yZPhOXul R5tbwzEavDFhJPDuGJz7iB spKpGkQCCif1hydlNlYxKb AKMgDPXbMEYyfKuzivu4zS 92ITGbfR0rfEJxWDemhfDi FuU9TQpiSNJpNvS0ODUgxB CrBGYfS4qwYJQcGDmfCNLa XBrgbTEpTRH6wNqfq8X3mV VzaGVldHtcZjBcZnMyOCBO p2CmZLd9xFspS9UtGIQkQk Z6tULmHUMqOAncWQKaUYYb nwQ9iK40LTsmqyS0yBZnv0 Dmc03oc804uY4hbBTkUOA2 TPVcKTFfuYMfOZDrWDO1WB WqlAHjA9daQBZsAQ4okmon NYfeYEnsCBSosEG6ZXUtoU OgH1AoMTLcYXwfPWAqtxd8 PvTeUs2paDUdyTpcLXfux0 njo3ylkAXqFvl3KVAoDmZf QsofCQjns3Zjs3yhPMVcmo 5cJUX4zCSyyHgig8O1xYGo QPCvcCRpdsDlQQImHmT3BR ayMN5hvv99TQNfBQX3kr9p bGNccGdicmRyaGVhZFxwZ2 HySXGeu765IPZeT7IxONHt b9C0mbHoNeEmRAHqsIE7xh N4RGCdUIq7sVZuffG0zpYw bTZbS3qhhB1iOAHmVZ2svc nje8koOHdgGDgqDDFwcCP5 lhN6NZLcaEExH0GqlR3dGT FtXAkrBXQimvz3MhWgPv2z dGVyeTcyMFxzYmtwYWdlXH BnbmNvbnRccGduZGVjXHBs YWluXHBsYWluXGYwXGZzMj PhnNmvjBrpyZ2gYgPrBwLb TTplYL9vQTRgD2spbTPqQP QaNAYqS9wnTdCifF8ykDre MVxjZjJcZnMyMFxwYXIgSS BoYXZlIHBlcnNvbmFsbHkg irN4rKO0ABGcSYuvLKIzEO RrbWJvif8joLbvPZKkYU1e IGFncmVlIHdpdGggYWxsIH U3SASgqUQcfZMqiQSgAJMk eSByZXNpZGVudHMsIGZlbG ruf3Riy9IppVQ6eL3tc4bh o3QxEHOtxJF2DZ43daF8mT 0nOOEoIT0nFBVjWW0mmHGx mORkFOQhf15ffSrufnVkWL BvcnQuXHBsYWluXGYyXGZz MjhcbGFuZzEwMzNcaGljaF kaLjtlWsYpMRChDKigY3ns JmOoSyBsMQjgQJF3nI== Final Diagnosis Comment s1cmvWEqCRCqhDBcNuUtAB (test code = OnSSFny4goOQMvmQXdPeNy 1176145618) MzNcZnRuYmpcdWMxXGRlZm Pqr1hun465zXAph4pvUPFh IzD5dZNkVRGcvIAnH904JK AhDMxwm4diz4TpIJLvuHVf z0E5HMUVqykutOj8uRudV4 5vs7A2EecrU8npARGpCNBn K2RyGD9pEDQhZpc7DSN0EN K3LPJxMLPwY8LuVJ5qYXIh oMNdZDy7e0jraRroHRXxPS U7q6roKYhldmElOF4ihn1b hUp6e8phhmJpLBXwOUYelU VHAELmO8IorIiyYw8paXi8 wCgtWyzkVBC3Gva5LC6wux 79axz8lZqzTVMsculqGmG3 YJwnEOTgedrnRKi1FJfqFY SlcIPoEIGmcAIgH5KlBIus IF3dnun1SiHmLY4yjiupGF ptHOWwPOJ1PnIeUZRke5Qp nafqGtByen1wdr64VTU4p5 TvvTzjYEP5QAU4TrYbGw9u bEFgOTHiLB4bZfIymKKoVT Lofv49pHddLCfosdDbcD4x LbKuHJMriABmNCLlUU6cdK YkQCHslB4xicmbYFPlWpTj vbiwTHLlaDcvtqDcHh0wsE jsWZO7OCkuN7wrgF7aHeJ2 OLlmS1tpbJ4hORb6UJzatC U2KOHfdO9uWS2mulwaa9of YZN8PWweAMSlfwM0arUgKE GllNNuP0DquN76OqQliXZj U5AlpA5mUNepCBRwahf4Jg BtAd2awOGrbME3CGxuAebk YWdlXHBnbmNvbnRccGduZG VjXHBsYWluXHBsYWluXGYw CMCqMrWdvJnnbUmqvW9wOc XuSkThHNssCS2aOKTtJ8ty aVWsDDAoJYOfJ5bdAiImrG 9jaFxmMVxmczIwIFNtZWFy MDCvx5hhNBFywU5nRE06PW 5gnGGhu3HzfHllXZGnv30f jGY2OJ38CEddfZvoJZ4qpR DqWS0qCm7ejFZotCqdTR97 IGNlbGwgaWRlbnRpZmllZC 5ccGFyfQ== Clinical Information Pleural effusion [J90] (test code = 4094184323) Gross Description (test d7lspOOjQDNkjRFsAbFyBO code = 4524494281) HyFXPhp6utUPCirBMiYgZm MzNcZnRuYmpcdWMxXGRlZm Mdd6fyt289gURfd7uwNVUg YiC7fHAmBMIlmEHeW094DY SzHQnyn0lrh2BuNQByeHRx p6T0XSBGbedgrYd0zPmdO1 8lx9Y2JqktL7hvCAVhQJhf DJFrWWabuUDxIXW8ZHHvYG O7HNcbncXhppS8MFfcdEKm XoX4YTu3k6taxQtrNIRtGB G1p6szONkwkfLoQO9tla7p uDd2o2tddjCnKFCnDEZhaL GJSCCbF1JjmBiqVm7dmBf1 vEuaIqtbERL1Mwm7OI0axm 01tfg7sKpqJZVzqlcnQlS0 AAjzSDTqhhwjVWj5KLktJX BykHLcBQJgbTSqD7NuQSgs NO4kzoh1UnOcYV0dxltpIG rgPFDjHMK6UzLlOLDdr4Ib wohuMvYlny7kqj32QBC8v4 MjzNxkLJF8ZYZ6AgKzSc8s tPSdXGKvPN6yZyRwcWXyAC Efdh38lLefPEcipvVggK9a OpDbMLItmJPeSGYeMI2orQ FnGBYahD7bmpglYMOdEkWv xohmWAEbgIgqxjRuZl8ssU hnMEZ4PXdrG3tmhD2rSoQ6 SXfrD9qhnW7nWPw9XKicvB P3UBHvoF6dRS6gbpfwh1cb OBO1IZoaJIRthkL8igApAY HiiTCjX0GocW07DtOkkDFm O9VguL7xHZykOFOqdio0Zk LjEn8qnKCtlPI1VJlcAvtz YWdlXHBnbmNvbnRccGduZG VjXHBsYWluXHBsYWluXGYw ALUhEaPtsLpptXrfdI0kOd BcZnMyMFxwbGFpblxmMFxm czIwIEExLiAgUExFVVJBLC UUGUlLZPyiNKmXNmSTXI1G RVNJUyBGTFVJRFxwYXIgUm PxRQp1KNTfOyHpf7kykKKi GRXgLqmqVD4bLCZbiPZmLW JlZCBmbHVpZCBccGFyXHBh rpDhiXtsyU5eAoIdCiTyEH xwbGFpblxmMVxmczIwIFBy ZXBhcmVkIFxwbGFpblxmMV xmczIwXGxhbmcxMDMzXGhp K3xsNjXzYKSvwVdwDCriv3 NoXGYxXGNmMVxmczIwXGx0 vlQfNMTuePiomY1iTtJeGl MyMCAgXHBsYWluXGYxXGZz MjBcbGFuZzEwMzNcaGljaF swSTkwJlTcSUFiORfkN8qz XjTbT8YaRDLpIpKecEDwL8 yka6ljHPTlYIwtfUBosqix MVxmczIwIChTbWVhclxwbG FpblxmMVxmczIwXGxhbmcx MRZwRCfcE9qcVlVnFJYgcU lsPSjqk0FiMHWuBFNtEKzm zoBgFTb1onRbXCKuzuYbYT HzdVcdnvA6BLMcWz9kZR2x r4SyrCLexjUmRSDJBIZdsi sqt0wsr9Kfn5KcrW6xUBfz mNnwcW9ySgXfDnKqZHhaTU J9 Embedded Images (test code = 3921177346) [facility] GLUCOSE (AUTOMATED)2019-10-29 21:32:00 Test Item Value Reference Range Interpretation Comments POCT GLU (test code = 8399251257) 162 mg/dL 70-110 H Lab Interpretation (test code = Abnormal 84641-0) [facility] GLUCOSE (AUTOMATED)2019-10-29 21:32:00 Test Item Value Reference Range Interpretation Comments POCT GLU (test code = 5616667735) 119 mg/dL 70-110 H Lab Interpretation (test code = Abnormal 97884-2) [facility] GLUCOSE (AUTOMATED)2019-10-29 21:32:00 Test Item Value Reference Range Interpretation Comments POCT GLU (test code = 3128447931) 136 mg/dL 70-110 H Lab Interpretation (test code = Abnormal 09505-6) [facility] GLUCOSE (AUTOMATED)2019-10-29 21:32:00 Test Item Value Reference Range Interpretation Comments POCT GLU (test code = 6768225154) 133 mg/dL 70-110 H Lab Interpretation (test code = Abnormal 62834-9) [facility] GLUCOSE (AUTOMATED)2019-10-29 18:46:00 Test Item Value Reference Range Interpretation Comments POCT GLU (test code = 4595715326) 203 mg/dL 70-110 H Lab Interpretation (test code = Abnormal 01269-6) [facility] [id number] 16:27:00 Test Item Value Reference Range Interpretation Comments SPUTUM CULTURE 1+ Respiratory monster: (test code = 622-1) Commensal upper respiratory microorganisms only. Gram stain (test Occasional (Rare) code = 664-3) Epithelial cells SADIE (test code = Bacterial pathogens SADIE) associated with lower respiratory infections were not identified, which include Pseudomonas aeruginosa and Staphylococcus aureus (MRSA or MSSA). [facility] GLUCOSE (AUTOMATED)2019-10-29 15:09:00 Test Item Value Reference Range Interpretation Comments POCT GLU (test code = 5082394094) 159 mg/dL 70-110 H Lab Interpretation (test code = Abnormal 33202-7) [facility] - POD #[id number] 14:13:17EXAM: XR CHEST 1 VW HISTORY: indwelling chest tube COMPARISON: None. FINDINGS: Two chest tubes drain the pleural space on the right, but the pleuraleffusion and associated compressive atelectasis (andinfection?) areunchanged. A small pneumothorax is present in the right apex. The left lungis well expanded and clear except for minor subsegmental atelectasis, andthe heart and great vessels are borderline normal. ? [facility], Radiant Results Inft - 10/29/2019 9:14 AM CDTEXAM: XR CHEST 1 VWHISTORY: indwelling chest tube COMPARISON: None.FINDINGS:Two chest tubes drain the pleural space on the right, but the pleuraleffusion and associated compressive atelectasis (and infection?) areunchanged. A small pneumothorax is present in the right apex. The left lungis well expanded and clear except forminor subsegmental atelectasis, andthe heart and great vessels are borderline normal.[facility] [id number] 13:50:00 Test Item Value Reference Range Interpretation Comments Blood Culture-Aerobic Culture positive. No growth AA P revious (test code = 22760-7) See Blood prelim inary Culture Workup verified resu lt for additional was Culture I n information. Progress on 10/26/2019 at 12 01 CDTPrevious preliminary verified result was No growth a t 24 hours on 10/27/2019 at 09 01 CDT Blood Culture positive. No growth AA Previous Culture-Anaerobic See Blood preliminar y (test code = 41636-0) Culture Workup veri fied result for additional was Culture I n information. Progress on 10/26/2019 at 12 01 CDTPrevious preliminary verified result was No growth a t 24 hours on 10/27/2019 at 09 52 CDT Lab Interpretation Abnormal (test code = 88674-5) [facility] [id number] 13:11:00 Test Item Value Reference Range Interpretation Comments WBC (test code = See_Comment H [Automated 6690-2) message] The system which generated this result transmitted reference range : 4.30 - 11.10 10*3/?L. The reference range was not used to interpret this result as normal/abnormal . RBC (test code = See_Comment L [Automated 789-8) message] The system which generated this result transmitted reference range : 3.93 - 5.25 10*6/?L. The reference range was not used to interpret this result as normal/abnormal . HGB (test code = 8.1 g/dL 11.6-15 L 718-7) HCT (test code = 23.0 % 35.7-45.2 L 4544-3) MCV (test code = 89.5 fL 80.6-95.5 787-2) MCH (test code = 31.5 pg 25.9-32.8 785-6) MCHC (test code = 35.2 g/dL 31.6-35.1 H 786-4) RDW-SD (test code = 45.3 fL 39-49.9 17675-4) RDW-CV (test code = 13.8 % 12-15.5 788-0) PLT (test code = See_Comment H [Automated 777-3) message] The system which generated this result transmitted reference range : 166 - 358 10*3/?L. The reference range was not used to interpret this result as normal/abnormal . MPV (test code = 9.1 fL 9.5-12.9 L 32894-1) NRBC/100 WBC (test See_Comment [Automat ed code = 1410503297) message] The system which generated this result transmitted reference range : 0.0 - 10.0 /100 WBCs. The reference range was not used to interpret this result as normal/abnormal . NRBC x10^3 (test code <0.01 See_Comment [Auto mated = [id number]) message] The system which generated this result transmitted reference range : 10*3/?L. The reference range was not used to interpret this result as normal/abnormal . GRAN MAT (NEUT) % 82.7 % (test code = 770-8) IMM GRAN % (test code 6.70 % = 8916292636) LYMPH % (test code = 5.5 % 736-9) MONO % (test code = 4.7 % 5905-5) EOS % (test code = 0.0 % 713-8) BASO % (test code = 0.4 % 706-2) GRAN MAT x10^3(ANC) 20.14 10*3/uL 1.88-7.09 H (test code = 8256599940) IMM GRAN x10^3 (test 1.64 10*3/uL 0-0.06 H code = 2414177490) LYMPH x10^3 (test 1.34 10*3/uL 1.32-3.29 code = 731-0) MONO x10^3 (test code 1.14 10*3/uL 0.33-0.92 H = 742-7) EOS x10^3 (test code <0.03 0.03-0.39 L = 711-2) BASO x10^3 (test code 0.10 10*3/uL 0.01-0.07 H = 704-7) BANDS (test code = MARKED INCREASED A 8273361549) Lab Interpretation Abnormal (test code = 78041-6) [facility] Metabolic Panel (NA, K, CL, CO2, GLUCOSE, BUN, CREATININE, CA)2019-10-29 12:37:00 Test Item Value Reference Range Interpretation Comments NA (test code = 134 mmol/L 135-145 L 6713666161) K (test code = 4.1 mmol/L 3.5-5 6527300578) CL (test code = 103 mmol/L 98-108 7849336919) CO2 TOTAL (test code = 24 mmol/L 23-31 3884237846) AGAP (test code = 2-16 9638741521) BUN (test code = 26 mg/dL 7-23 H 8698489497) GLUCOSE (test code = 150 mg/dL 70-110 H 9642157131) CREATININE (test code = 0.95 mg/dL 0.5-1.04 7089718646) CALCIUM (test code = 8.6 mg/dL 8.6-10.6 1351345356) eGFR Calculation mL/min/1.73m2 (Non-) (test code = 3673907829) eGFR Calculation mL/min/1.73m2 () (test code = 8132796599) SADIE (test code = SADIE) [employer] Filtration Rate (GFR) and Staging of Kidney Disease* + --+ --+ ------+| GFR (mL/min/1.73 m2) ?| With Kidney Damage ?| ?Without Kidney Damage+ --------+ --------+ +| ?>90 ?| ?Stage one ?| ? Normal ?+ ---+ ---+ -------+| ?60-89 ?| ?Stage two ?| ? Decreased GFR ? + --+ --+ ------+| ?30-59 ?| ?Stage three ?| ? Stage three ? + --+ --+ ------+| ?15-29 ?| ?Stage four ? | ? Stage four ?+ ---+ ---+ -------+| ?<15 (or dialysis) ? ?| ?Stage five ? | ? Stage five ?+ ---+ ---+ -------+ *Each stage assumes the associated GFR level has been in effect for at least three months. ?Stages 1 to 5, with or without kidney disease, indicate chronic kidney disease. Notes: Determination of stages one and two (with eGFR >59mL/min/1.73 m2) requires estimation of kidney damage for at least three months as defined by structural or functional abnormalities of the kidney, manifested by either:Pathological abnormalities or Markers of kidney damage (including abnormalities in the composition of the blood or urine or abnormalities in imaging tests). Lab Interpretation Abnormal (test code = 01720-6) [facility] GLUCOSE (AUTOMATED)2019-10-29 06:09:00 Test Item Value Reference Range Interpretation Comments POCT GLU (test code = 6836008273) 255 mg/dL 70-110 H Lab Interpretation (test code = Abnormal 37284-1) [facility] GLUCOSE (AUTOMATED)2019-10-29 03:31:00 Test Item Value Reference Range Interpretation Comments POCT GLU (test code = 4564703177) 327 mg/dL 70-110 H Lab Interpretation (test code = Abnormal 10443-1) [facility] GLUCOSE (AUTOMATED)2019-10-29 02:23:00 Test Item Value Reference Range Interpretation Comments POCT GLU (test code = 3604353208) 317 mg/dL 70-110 H Lab Interpretation (test code = Abnormal 21938-8) [facility] With [id number] 21:59:00 Test Item Value Reference Range Interpretation Comments WBC (test code = See_Comment H [Automated 6690-2) message] The system which generated this result transmit mary kay reference range : 4.30 - 11.10 10*3/?L. The reference range was not used to interpret this result as normal/abnormal . RBC (test code = See_Comment L [Automated 789-8) message] The system which generated this result transmit mary kay reference range : 3.93 - 5.25 10*6/?L. The reference range was not used to interpret this result as normal/abnormal . HGB (test code = 8.7 g/dL 11.6-15 L 718-7) HCT (test code = 25.7 % 35.7-45.2 L 4544-3) MCV (test code = 90.2 fL 80.6-95.5 787-2) MCH (test code = 30.5 pg 25.9-32.8 785-6) MCHC (test code = 33.9 g/dL 31.6-35.1 786-4) RDW-SD (test code = 43.7 fL 39-49.9 67178-0) RDW-CV (test code = 13.2 % 12-15.5 788-0) PLT (test code = See_Comment H [Automated 777-3) message] The system which generated this result transmit mary kay reference range : 166 - 358 10*3/ ?L. The reference range was not u sed to interpret th is result as normal/abnormal . MPV (test code = 8.8 fL 9.5-12.9 L 63180-8) NRBC/100 WBC (test See_Comment [Automat ed code = 5388080484) message] The system which generated this result transmit mary kay reference range : 0.0 - 10.0 /100 WBCs. The reference range was not used to interpret this result as normal/abnormal . NRBC x10^3 (test code <0.01 See_Comment [Auto mated = 5027483025) message] The system which generated this result transmit mary kay reference range : 10*3/?L. The reference range was not used to interpret this result as normal/abnormal . GRAN MAT (NEUT) % 84.0 % (test code = 770-8) IMM GRAN % (test code 6.70 % = 5743780421) LYMPH % (test code = 5.0 % 736-9) MONO % (test code = 3.5 % 5905-5) EOS % (test code = 0.3 % 713-8) BASO % (test code = 0.5 % 706-2) GRAN MAT x10^3(ANC) 14.52 10*3/uL 1.88-7.09 H (test code = 0251432576) IMM GRAN x10^3 (test 1.16 10*3/uL 0-0.06 H code = 9584673216) LYMPH x10^3 (test code 0.86 10*3/uL 1.32-3.29 L = 731-0) MONO x10^3 (test code 0.61 10*3/uL 0.33-0.92 = 742-7) EOS x10^3 (test code = 0.05 10*3/uL 0.03-0.39 711-2) BASO x10^3 (test code 0.08 10*3/uL 0.01-0.07 H = 704-7) MARKY CELLS (test code 2+ See_Comment A [Auto mated = 7790-9) message] The system which generated this result transmit mary kay reference range : (none). The reference range was not used to interpret this result as normal/abnormal . BANDS (test code = Increased A 5528129424) TOXIC CHANGES (test Present A code = 803-7) Lab Interpretation Abnormal (test code = 91447-4) [facility] 21:58:00 Test Item Value Reference Range Interpretation Comments POCT GLU (test code = 142 mg/dL 70-110 H Notifi ed Provider [id number]) Lab Interpretation (test Abnormal code = 29277-0) [facility]W - POD #0 in [id number] 21:43:05 Interval placement of a surgical chest tube in the right lung withincreased lung aeration and decreased loculated right pleural fluid. Preliminary Report Dictated by Resident: Poppy Odom I, Magda Padilla MD., have reviewed this study and agree with theabove report.XR CHEST 1 VW Comparison: Radiograph 10/28/2019, CT chest 10/26/2019 History: s/p drainage of right empyema In PACU immediately post op. Findings: There is been interval placement of a surgical chest tube with the tip inthe right lung apex which improved aeration of the right lung. Residualperipheral hazy opacities noted, corresponds with loculated pleuraleffusion noted on prior CT dated 10/26/2019. Airspace opacities noted in theright lung base are persistent. No pneumothorax is identified. The cardiomediastinal silhouette is normal in size. No acute osseous abnormality is present. [facility], Radiant Results Inft User - 10/28/2019 4:44 PM CDTXR CHEST 1 VWComparison: Radiograph 10/28/2019, CT chest 10/26/2019History: s/p drainage of right empyema In PACU immediately post op.Findings:There is been interval placement of a surgical chest tube with the tip inthe right lung apex which improved aeration of the right lung. Resi dualperipheral hazy opacities noted, corresponds with loculated pleuraleffusion noted on prior CT dated 10/26/2019. Airspace opacities noted in theright lung base are persistent. No pneumothorax is identified. The cardiomediastinal silhouette is normal in size. No acute osseous abnormality is present.IM PRESSIONInterval placement of a surgical chest tube in the right lung withincreased lung aeration and decreased loculated right pleural fluid.Preliminary Report Dictated by Resident: Poppy Durand, Magda Silver MD., have reviewed this study and agree with theabove report. [facility] CenterErector Spinae Plane Block - [id number] 19:55:08Ry Barakat MD ? ? 10/28/2019 ?2:56 PM Nerve Block Laterality: RightStart Time: 10/28/20192:45 PMEnd Time: 10/28/2019 2:55 PMPost Op Pain Management requested by surgeon per surgical: Progress NoteOther Anesthesia Staff: Ry Barakat MDAnesthesiologist: Derrick Andres MDPer formed by: other anesthesia staffPreanesthetic timeout completed prior to procedure: patient identified,IV checked, site marked, risks and benefits discussed, surgical consent, monitors and equipment checked, pre-op evaluation, timeout performedInformed consent obtained patient wishes to proceed: yesPatient Position: right lateral decubitusSterile Prep/Drape: YesMonitoring: continuous pulse ox, bloodpressure and ECGInjection Technique: single-shotNeedle Type: StimuplexNeedle Gauge: 21 GNeedle Length: 4.0Number of Attempts: 1Technique: Ultrasound guidedEvents: Negative Aspiration, Local anesthetic solution visualized around nerve and No symptoms of intraneural or IV injection Medications Given: Regional:Bupiv 0.25% 20 mL [facility] CenterPrepare Packed RBC (in units), 2 Units 2019-10-28 19:50:49 Test Item Value Reference Range Interpretation Comments Cross Match Result Compatible (test code = 4409) ISBT Blood Type Code (test code = 729476) Unit Blood Type (test O Pos code = 4410) Unit Number (test [id number] code = 4411) Blood Expiration Date & Time (test code = 119156) Status Information Issued (test code = 4412) Product Red Blood Cells Identification (test code = 4413) Product Code (test [id number] Performed at [facility] code = 4414) Laboratory Services - [facility] Blood [address] [address]Islt Free: [phone] A No. [id number] [facility] CenterIntubation2020-08-17 18:03:32Mili Perry MD ? ? 10/28/2019 ?1:08 PMIntubationDate/Time: 10/28/2019 11:40 AMUrgency: elective Airway not difficult General Information and Staff Patient location during procedure: ORAnesthesiologist: Derrick Andres MDResident/PRIMING MACHINE OPERATOR: Mili Perry MDOther anesthesia staff: Jennifer Barakat MDPerformed: resident/PRIMING MACHINE OPERATOR Indications and Patient ConditionIndications for airway management: anesthesia and airway protectionSpontaneous Ventilation: absentSedation level: deepPreoxygenated: yesPatient position: sniffingMask difficulty assessment: 2 - vent by mask + OA or adjuvant +/- NMBAPlanned trial extubation Final Airway DetailsFinal airway type: endotracheal airway Successful airway:ETT - double lumen leftCuffed: yes Successful intubation technique: flexible bronchoscopyFacilitating devices/methods: intubating stylet and cricoid pressureEndotracheal tube insertion site: oralBlade:MacintoshBlade size: #3ETT DL size (fr): 35Placement verified by: bronchoscopy and capnometry Numberof attempts at approach: 1 Additional CommentsInitial DL x1 with Mac3, G1v. Placed SHAQUILLE thru cords, advanced it, inflated tracheal cuff, connected to vent, confirmed EtCO2. After getting fiberoptic scope ready, deflated cuff, then used fiberoptic scope to place bronchial cuff in left main bronchus, then inflated both cuffs. Isolated with clamp.[facility] CenterType and Screen - ONCE [id number] 17:00:52 Test Item Value Reference Range Interpretation Comments ABO & RH (test code O POSITIVE Performe d at [facility] = 20) Laboratory Serv [facility] Blood Bank3 [address] [facility] s [address]Yltb Free: [phone] A No. [id number] IAT (test code = Negative Performed a t [facility] 1185) Laboratory Serv [facility] Blood Bank3 [address] [facility] [address] [address]Wles Free: [phone] A No. [id number] [facility] CenterArterial [id number] 16:20:30Mili Perry MD ? ? 10/28/2019 ?1:03 PM Arterial Line Date/Time: 10/28/2019 11:12 AMPerformed by: Ry Barakat MD Arterial Line Placement: ?Ultrasound- Guided: ultrasound guided ? ?Patient Location: ?Pre-op ?Indication: continuous blood pressure monitoring and blood sampling needed ?Staff: ?Supervising Anesthesiologist: ?Derrick Andres MD ?Resident: ?Brandin Wood MD ?Other: ?Mili Perry, MDProcedure Detail: ?Catheter Size: ?20 gauge ?Catheter Length: ?1and 3/4 inch ?Catheter Type: ?Arrow ?Seldinger Technique?: Yes ? ?Laterality: ?Right ?Site: ?Radial artery ?Line Secured: ?Tegaderm and tape ?Preparation: ?Biopatch applied and guidewire removed intactE vents: ?Events: ?Patient tolerated procedure well with no complications and all wires accounted for [facility] CenterCT THORAX WO [id number] 15:21:53 Worsening of the right loculated pleural effusion. Density of the fluidhigher than simple fluid suggest possible empyema. Patchy opacity in theright middle lobe suggestive of underlying pneumonia. PROCEDURE: CT CHEST NON CONTRAST - CHEST PROTOCOL CLINICAL INDICATION: Pleural effusion ? COMPARISON: ?None. TECHNIQUE: ?Helical CT was performed of the chest (lung apices to bases). Images were reconstructed at 1.25 mm slice thickness. MIP and coronal &sagittal MPR images were generated and reviewed. ?(DFOV = cm) FINDINGS: Lower neck/thyroid: Unremarkable. Lungs: The loculated pleural effusion on the right side has worsened. Theinner density of the fluid is higher than of normal fluid, indicating itmay be purulent thick fluid. Compressive atelectasis of the adjacentlungin the lower lobe. Partial collapse consolidation of right middle lobe withsome patchy airspace opacities (image 53:6 series 8). ?Given lack of IVcontrast, thickness and enhancement of the pleura cannot be ascertained. Central airway: Unremarkable. Pleura: Loculated right pleural effusion.. Thoracic aorta and great vessels: ?Normal in diameter. Pulmonary arteries: Unremarkable. Heart and pericardium: Multivessel coronary arterial calcification.Unremarkable cardiac morphology and pericardium. Lymph nodes: No enlarged thoracic lymph nodes. Mediastinum: Unremarkable. Thoracic spine and chest wall:Unremarkable, with normal thoracic vertebralbody heights. Other Lines/Tubes/Devices/Hardware: None Visualized upper abdomen: Unremarkable within the limits of a nonintravenous contrast enhanced examinat ion. [facility], Radiant Results Inft User - 10/28/2019 10:22 AM CDTPROCEDURE: CT CHEST NON CONTRAST - CHEST PROTOCOLCLINICAL INDICATION: Pleural effusion COMPARISON: None.TECHNIQUE: Helical CT was performed of the chest (lung apices to bases). Images were reconstructed at 1.25 mm slice thickness. MIP and coronal &sagittal MPR images were generated and reviewed. (DFOV= cm)FINDINGS:Lower neck/thyroid: Unremarkable.Lungs: The loculated pleural effusion on the right side has worsened. Theinner density of the fluid is higher than of normal fluid, indicating itmay be purulent thick fluid. Compressive atelectasis of the adjacent lungin the lower lobe. Partial collapse consolidation of right middle lobe withsome patchy airspace opacities (image 53:6 series 8). Given lack of IVcontrast, thickness and enhancement of the pleura cannot be ascertained.Central airway: Unremarkable.Pleura: Loculated right pleural effusion..Thoracic aorta and great vessels: Normal in diamete r.Pulmonary arteries: Unremarkable.Heart and pericardium: Multivessel coronary arterial calcification.Unremarkable cardiac morphology and pericardium.Lymph nodes: No enlarged thoracic lymph nodes.Mediastinum: Unremarkable.Thoracic spine and chest wall: Unremarkable, with normal thoracic vertebralbody heights.Other Lines/Tubes/Devices/Hardware: NoneVisualized upper abdomen: Unremarkable within the limits of a nonintravenous contrast enhanced examination. IMPRESSIONWorsening of the right loculated pleural effusion. Density of the fluidhigher than simple fluid suggest possible empyema. Patchy opacity in theright middle lobe suggestive of underlying pneumonia. [facility] CenterXR CHEST 1 [id number] 13:14:47EXAM: XR CHEST 1 VW HISTORY: empyema COMPARISON: None. FINDINGS: The amount of fluid in the pleuralspace on the right is unchanged orperhaps slightly increased. The right upper lung and the left lungareclear and the heart and great vessels are normal. ? [facility], Radiant Results Inft User - 10/28/2019 8:15 AM CDTEXAM: XR CHEST 1 VWHISTORY: empyema COMPARISON: None.FINDINGS:The amount of fluid inthe pleural space on the right is unchanged orperhaps slightly increased. The right upper lung and the left lung areclear and the heart and great vessels are normal.[facility] GLUCOSE (AUTOMATED)2019-10-28 12:56:00 Test Item Value Reference Range Interpretation Comments POCT GLU (test code = 116 mg/dL 70-110 H Notifi ed Provider [id number]) Lab Interpretation (test Abnormal code = 71390-3) [facility] CenterCOVID-19 (ID NOW RAPID TESTING)2019-10-28 03:19:00 Test Item Value Reference Range Interpretation Comments SARS-CoV-2 Rapid ID NOW Not Detected Not Detected (test code = 65705-9) SADIE (test code = SADIE) ID NOW COVID-19 Assay is an isothermal nucleic acid amplification test intended for the qualitative detection of nucleic acid from SARS-CoV-2 viral RNA in nasopharyngeal (COMMERCIAL DIVER) specimens. It is used under Emergency Use Authorization (EUA) by FDA. The limit of detection (LOD) of the assay is 125 Genome Equivalents/mL. A positive result is indicative of the presence of SARS-CoV-2 RNA. ?Clinical correlation with patient history and other diagnostic information is necessary to determine patient infection status. A negative (Not Detected) result does not preclude SARS-CoV-2 infection. In patients with clinical symptoms and other tests that are consistent with SARS-CoV-2 infection, negative results should be treated as presumptive negative and a new specimen should be tested with alternative PCR molecular test. Invalid: Please collect a new specimen for repeat patient testing if clinically indicated. Lab Interpretation Normal (test code = 85923-6) [facility] CenterPNEUMOCOCCAL [id number] 01:30:00 Test Item Value Reference Range Interpretation Comments S. pneumoniae antigen (test code = Negative Negative [id number]) Lab Interpretation (test code = Normal 20409-2) [facility] GLUCOSE (AUTOMATED)2019-10-28 00:27:00 Test Item Value Reference Range Interpretation Comments POCT GLU (test code = 5316260154) 166 mg/dL 70-110 H Lab Interpretation (test code = Abnormal 58517-3) [facility] CenterGRAM POSITIVE BLOOD PATHOGENS DNA [id number] 23:46:00 Test Item Value Reference Range Interpretation Comments Coagulase Negative Positive Negative A Staphylococcus (test code = 02522-4) SADIE (test code = SADIE) Coagulase negative Staphylococcus (CoNS) detected by DNA probe. ?CoNS often contaminate blood cultures from skin colonization during phlebotomy. ?Preferred management is to repeat blood cultures, and monitor off antibiotics. ?Contamination is suggested by culture growth after 48 hours, or growth in single culture (i.e., one of two sets). ?True bacteremia is suggested by the fever, hypotension, and leukocytosis that are not explained by an alternative infection, or indwelling foreign devices that appear infected (catheters, lines, or prostheses). Consider Infectious Diseases consultation if differentiation of CoNS bacteremia from contamination is uncertain. If clinical context suggests true bacteremia, preferred therapy is vancomycin. Please contact the Antimicrobial Stewardship Program with questions.Pager: ?[phone] Testing included eleven identification and three resistance marker targets. Lab Interpretation Abnormal (test code = 03767-7) [facility] GLUCOSE (AUTOMATED)2019-10-27 23:34:00 Test Item Value Reference Range Interpretation Comments POCT GLU (test code = 9783284297) 116 mg/dL 70-110 H Lab Interpretation (test code = Abnormal 15530-7) [facility] GLUCOSE (AUTOMATED)2019-10-27 18:27:00 Test Item Value Reference Range Interpretation Comments POCT GLU (test code = 6624918289) 167 mg/dL 70-110 H Lab Interpretation (test code = Abnormal 83867-8) [facility] CenterMRSA / MSSA SCREEN BY PCR, [id number] 15:58:00 Test Item Value Reference Range Interpretation Comments MSSA Screen by PCR, Nares (test code Negative Negative = 97572-4) MRSA/MSSA Positive? (test code = No No [id number]) Lab Interpretation (test code = Normal 70537-5) [facility] WITH [id number] 14:03:00 Test Item Value Reference Range Interpretation Comments WBC (test code = See_Comment H [Automated 6690-2) message] The system which generated this result transmitted reference range : 4.30 - 11.10 10*3/?L. The reference range was not used to interpret this result as normal/abnormal . RBC (test code = See_Comment L [Automated 789-8) message] The system which generated this result transmitted reference range : 3.93 - 5.25 10*6/?L. The reference range was not used to interpret this result as normal/abnormal . HGB (test code = 8.6 g/dL 11.6-15 L 718-7) HCT (test code = 24.8 % 35.7-45.2 L 4544-3) MCV (test code = 92.2 fL 80.6-95.5 787-2) MCH (test code = 32.0 pg 25.9-32.8 785-6) MCHC (test code = 34.7 g/dL 31.6-35.1 786-4) RDW-SD (test code = 42.0 fL 39-49.9 23459-9) RDW-CV (test code = 12.4 % 12-15.5 788-0) PLT (test code = See_Comment H [Automated 777-3) message] The system which generated this result transmitted reference range : 166 - 358 10*3/?L. The reference range was not used to interpret this result as normal/abnormal . MPV (test code = 9.1 fL 9.5-12.9 L 28056-9) NRBC/100 WBC (test See_Comment [Automat ed code = 2517532313) message] The system which generated this result transmitted reference range : 0.0 - 10.0 /100 WBCs. The reference range was not used to interpret this result as normal/abnormal . NRBC x10^3 (test code <0.01 See_Comment [Auto mated = 2244142809) message] The system which generated this result transmitted reference range : 10*3/?L. The reference range was not used to interpret this result as normal/abnormal . GRAN MAT (NEUT) % 73.8 % (test code = 770-8) IMM GRAN % (test code 6.00 % = 7099245042) LYMPH % (test code = 7.8 % 736-9) MONO % (test code = 11.4 % 5905-5) EOS % (test code = 0.5 % 713-8) BASO % (test code = 0.5 % 706-2) GRAN MAT x10^3(ANC) 11.29 10*3/uL 1.88-7.09 H (test code = 7157152851) IMM GRAN x10^3 (test 0.92 10*3/uL 0-0.06 H code = 4187546565) LYMPH x10^3 (test 1.20 10*3/uL 1.32-3.29 L code = 731-0) MONO x10^3 (test code 1.74 10*3/uL 0.33-0.92 H = 742-7) EOS x10^3 (test code 0.08 10*3/uL 0.03-0.39 = 711-2) BASO x10^3 (test code 0.07 10*3/uL 0.01-0.07 = 704-7) POLYCHROMASIA (test 2+ See_Comment [Automa mary kay code = 74120-0) message] The system which generated this result transmitted reference range : 2+. The referen ce range was not used to interpr et this result as normal/abnormal . BANDS (test code = MARKED INCREASED A 2749179291) TOXIC CHANGES (test Present A code = 803-7) Lab Interpretation Abnormal (test code = 10832-6) [facility] METABOLIC PANEL (NA, K, CL, CO2, GLUCOSE, BUN, CREATININE, CA)2019-10-27 10:41:00 Test Item Value Reference Range Interpretation Comments NA (test code = 135 mmol/L 135-145 4573531646) K (test code = 3.6 mmol/L 3.5-5 8456634857) CL (test code = 103 mmol/L 98-108 1591242567) CO2 TOTAL (test code = 24 mmol/L 23-31 3608487950) AGAP (test code = 2-16 5274986367) BUN (test code = 25 mg/dL 7-23 H 8945457255) GLUCOSE (test code = 118 mg/dL 70-110 H 8004660338) CREATININE (test code = 1.12 mg/dL 0.5-1.04 H 0724123529) CALCIUM (test code = 8.3 mg/dL 8.6-10.6 L 6495057174) eGFR Calculation mL/min/1.73m2 (Non-) (test code = 7908668094) eGFR Calculation mL/min/1.73m2 () (test code = 0838363016) SADIE (test code = SADIE) Association of Glomerular Filtration Rate (GFR) and Staging of Kidney Disease* + --+ --+ ------+| GFR (mL/min/1.73 m2) ?| With Kidney Damage ?| ?Without Kidney Damage+ --------+ --------+ +| ?>90 ?| ?Stage one ?| ? Normal ?+ ---+ ---+ -------+| ?60-89 ?| ?Stage two ?| ? Decreased GFR ? + --+ --+ ------+| ?30-59 ?| ?Stage three ?| ? Stage three ? + --+ --+ ------+| ?15-29 ?| ?Stage four ? | ? Stage four ?+ ---+ ---+ -------+| ?<15 (or dialysis) ? ?| ?Stage five ? | ? Stage five ?+ ---+ ---+ -------+ *Each stage assumes the associated GFR level has been in effect for at least three months. ?Stages 1 to 5, with or without kidney disease, indicate chronic kidney disease. Notes: Determination of stages one and two (with eGFR >59mL/min/1.73 m2) requires estimation of kidney damage for at least three months as defined by structural or functional abnormalities of the kidney, manifested by either:Pathological abnormalities or Markers of kidney damage (including abnormalities in the composition of the blood or urine or abnormalities in imaging tests). Lab Interpretation Abnormal (test code = 86832-5) [facility]2019-10-27 04:19:00 Test Item Value Reference Range Interpretation Comments POCT GLU (test code = 2464761845) 131 mg/dL 70-110 H Lab Interpretation (test code = Abnormal 43586-8) [facility] CenterGLYCOSYLATED HEMOGLOBIN (A1C)2019-10-27 00:04:00 Test Item Value Reference Range Interpretation Comments HGB A1C (test code = 5.7 % 4-6 4548-4) SADIE (test code = SADIE) %A1C (NGSP) Interpretation (ADA)4.8-5.6 ? ? Normal or (Non-Diabetic Range)5.7-6.4 ? ? Increased Risk (Pre-Diabetic)>6.5 ?Diabetes Indicated Lab Interpretation Normal (test code = 34405-1) [facility]-REACTIVE [id number] 16:52:00 Test Item Value Reference Range Interpretation Comments CRP (test code = 4279646677) 29.2 mg/dL <0.8 H Lab Interpretation (test code = Abnormal 14593-8) [facility] METABOLIC PANEL (NA, K, CL, CO2, GLUCOSE, BUN, CREATININE, CA)2019-10-26 11:48:00 Test Item Value Reference Range Interpretation Comments NA (test code = 132 mmol/L 135-145 L 3239529232) K (test code = 4.1 mmol/L 3.5-5 8096006714) CL (test code = 104 mmol/L 98-108 7721151140) CO2 TOTAL (test code = 22 mmol/L 23-31 L 4413224309) AGAP (test code = 2-16 9260871823) BUN (test code = 34 mg/dL 7-23 H 0525296794) GLUCOSE (test code = 105 mg/dL 70-110 6405035431) CREATININE (test code = 1.32 mg/dL 0.5-1.04 H 8841483658) CALCIUM (test code = 8.4 mg/dL 8.6-10.6 L 6329485459) eGFR Calculation mL/min/1.73m2 (Non-) (test code = 4889905207) eGFR Calculation mL/min/1.73m2 () (test code = 2105680121) SADIE (test code = SADIE) Association of Glomerular Filtration Rate (GFR) and Staging of Kidney Disease* + --+ --+ ------+| GFR (mL/min/1.73 m2) ?| With Kidney Damage ?| ?Without Kidney Damage+ --------+ --------+ +| ?>90 ?| ?Stage one ?| ? Normal ?+ ---+ ---+ -------+| ?60-89 ?| ?Stage two ?| ? Decreased GFR ? + --+ --+ ------+| ?30-59 ?| ?Stage three ?| ? Stage three ? + --+ --+ ------+| ?15-29 ?| ?Stage four ? | ? Stage four ?+ ---+ ---+ -------+| ?<15 (or dialysis) ? ?| ?Stage five ? | ? Stage five ?+ ---+ ---+ -------+ *Each stage assumes the associated GFR level has been in effect for at least three months. ?Stages 1 to 5, with or without kidney disease, indicate chronic kidney disease. Notes: Determination of stages one and two (with eGFR >59mL/min/1.73 m2) requires estimation of kidney damage for at least three months as defined by structural or functional abnormalities of the kidney, manifested by either:Pathological abnormalities or Markers of kidney damage (including abnormalities in the composition of the blood or urine or abnormalities in imaging tests). Lab Interpretation Abnormal (test code = 89031-1) [facility] 11:45:00 Test Item Value Reference Range Interpretation Comments Procalcitonin (test 8.37 ng/mL <0.07 H code = 6083733230) SADIE (test code = SADIE) INTERPRETATION OF PROCALCITONIN RESULTS IN ADULTS >= 18 YEARS OF AGE Initiation and discontinuation of antibiotics on patients with suspected or confirmed Lower Respiratory Tract Infection in Adults >= 18 years of age. + +-------- --------+ + -----+|Procalcitonin |Interpretation ?|Antibiotic ? ? |Considerations ? |ng/mL ? | ?|recommendation | ? + +-------- --------+ + -----+| <0.1 ? | Bacterial ? ? ?| Strongly ? ? ?| ? | ?| infection very | discouraged ? | Overruling: ? | ?| unlikely ? ? ? | ? | ? Clinically unstable ? ? ? + +-------- --------+ + ? High risk for adverse ? ? | <0.25 ?| Bacterial ? ? ?| Discouraged ? | ? outcome ? | ?| infection ? ? ?| ? | ? SEE IMPORTANT NOTE ?| ?| unlikely ? ? ? | ? | ? + +-------- --------+ + -----+| >=0.25 ? ? ? | Bacterial ? ? ?| Encouraged ? ?| ? | ?| infection ? ? ?| ? | ? | ?| likely ? | ? | Consider treatment failure ?+ +------- ---------+ -+ if levels does not decrease | >0.5 ? | Bacterial ? ? ?| Strongly ? ? ?| appropriately ? | ?| infection very | encouraged ? ?| ? | ?| likely ? | ? | ? + +-------- --------+ + -----+ Discontinuation of antibiotics in high-acuity patients with suspected or confirmed sepsis in Adults >= 18 years of age. + +-------- --------+ + -----+|Procalcitonin |Interpretation ?|Antibiotic ? ? |Considerations ? |ng/mL ? | ?|recommendation | ? + +-------- --------+ + -----+| <0.25 ?| Bacterial ? ? ?| Strongly ? ? ?| ? | ?| infection very | discouraged ? | Overruling: ? | ?| unlikely ? ? ? | ? | ? Clinically unstable ? ? ? + +-------- --------+ + ? High risk for adverse ? ? | <0.5 or drop | Bacterial ? ? ?| Discouraged ? | ? outcome ? | >80% from ? ?| infection ? ? ?| ? | ? SEE IMPORTANT NOTE ?| highest PCT ?| unlikely ? ? ? | ? | ? | level ?| ?| ? | ? + +-------- --------+ + -----+| >=0.5 ?| Bacterial ? ? ?| Encouraged ? ?| ? | ?| infection ? ? ?| ? | ? | ?| likely ? | ? | Consider treatment failure ?+ +------- ---------+ -+ if levels does not decrease | >1.0 ? | Bacterial ? ? ?| Strongly ? ? ?| appropriately ? | ?| infection very | encouraged ? ?| ? | ?| likely ? | ? | ? + +-------- --------+ + -----+ Percentage of drop of Procalcitonin calculation for Discontinuation of antibiotics in high-acuity patients with suspected or confirmed sepsis in Adults >= 18 years of age. ? Procalcitonin highest{}-Procalcitonin current{}Delta Procalcitonin = x100% ? Procalcitonin current {} IMPORTANT NOTE: Procalcitonin may be elevated without bacterial infection by physiologic stress related to trauma, torres, chronic dialysis, metastatic cancer, surgery in the past seven days, malaria, some fungal infections, and some forms of vasculitis. The interpretation algorithm may not apply to patients with immunosuppression (equivalent of >10 mg of prednisone daily), HIV with CD4 cell count < 350 cells/mm3, active malignancy on systemic chemotherapy, solid organ transplant or hematopoietic stem cell transplantation, or hospital acquired pneumonia. Additionally, some clinical trials of procalcitonin have excluded patients with shock requiring vasopressor use, acute respiratory failure requiring mechanical ventilation, or those with known lung abscess/empyema. For further information please refer to:[email or web address] Lab Interpretation Abnormal (test code = 82074-5) [facility] WITH [id number] 09:40:00 Test Item Value Reference Range Interpretation Comments WBC (test code = See_Comment H [Automated 0980-2) message] The system which generated this result transmit mary kay reference range : 4.30 - 11.10 10*3/?L. The reference range was not used to interpret this result as normal/abnormal . RBC (test code = See_Comment L [Automated 789-8) message] The system which generated this result transmit mary kay reference range : 3.93 - 5.25 10*6/?L. The reference range was not used to interpret this result as normal/abnormal . HGB (test code = 7.9 g/dL 11.6-15 L 718-7) HCT (test code = 22.3 % 35.7-45.2 L 4544-3) MCV (test code = 91.4 fL 80.6-95.5 787-2) MCH (test code = 32.4 pg 25.9-32.8 785-6) MCHC (test code = 35.4 g/dL 31.6-35.1 H 786-4) RDW-SD (test code = 40.1 fL 39-49.9 07777-8) RDW-CV (test code = 12.0 % 12-15.5 788-0) PLT (test code = See_Comment H [Automated 777-3) message] The system which generated this result transmit mary kay reference range : 166 - 358 10*3/ ?L. The reference range was not u sed to interpret th is result as normal/abnormal . MPV (test code = 9.1 fL 9.5-12.9 L 89789-2) NRBC/100 WBC (test See_Comment [Automat ed code = 6438957829) message] The system which generated this result transmit mary kay reference range : 0.0 - 10.0 /100 WBCs. The reference range was not used to interpret this result as normal/abnormal . NRBC x10^3 (test code <0.01 See_Comment [Auto mated = 0641665819) message] The system which generated this result transmit mary kay reference range : 10*3/?L. The reference range was not used to interpret this result as normal/abnormal . GRAN MAT (NEUT) % 73.9 % (test code = 770-8) IMM GRAN % (test code 4.10 % = 3722440185) LYMPH % (test code = 11.2 % 736-9) MONO % (test code = 10.0 % 5905-5) EOS % (test code = 0.5 % 713-8) BASO % (test code = 0.3 % 706-2) GRAN MAT x10^3(ANC) 11.41 10*3/uL 1.88-7.09 H (test code = 6311862363) IMM GRAN x10^3 (test 0.63 10*3/uL 0-0.06 H code = 4689294569) LYMPH x10^3 (test code 1.73 10*3/uL 1.32-3.29 = 731-0) MONO x10^3 (test code 1.55 10*3/uL 0.33-0.92 H = 742-7) EOS x10^3 (test code = 0.08 10*3/uL 0.03-0.39 711-2) BASO x10^3 (test code 0.05 10*3/uL 0.01-0.07 = 704-7) Lab Interpretation Abnormal (test code = 82079-6) [facility] [id number] 05:58:44 No acute fracture or traumatic malalignment of the lumbar spine. Degenerative changes of the lumbarspine with grade 1 anterolisthesis of L5on S1 with associated facet arthropathy and L2-L3 disc degeneration withassociated disc bulge and L2 vertebral body inferior endplate Schmorl'snode. CT LUMBAR SPINE WO CONTRAST HISTORY: Back pain, no red flags, initial exam TECHNIQUE: ?Contiguous thin section axial images were obtained of thelumbar spine. ?Sagittal and coronal reformatted images were generated.Images were reviewed in soft-tissue and bone detail. . ? COMPARISON: None. FINDINGS: For the purposes of this dictation, the last well-defined interspace iscalled L5-S1.There is mild loss of the normal lumbar lordosis. There is levocurvature of the lumbar spine. Lumbar vertebral body heights are maintained. ? There is L2-L3 disc degeneration with L2 vertebral body inferior endplateSchmorl's node and L2-L3 disc bulge.There is mild L4-L5 facet arthropathy.There is grade 1 anterolisthesis of L5 on S1with associated moderate rightgreater than left facet arthropathy. There is disc vacuum phenomenon atL5-S1 on the left. No acute fracture or traumatic malalignment of the lumbar spine. There is atherosclerosis of the abdominal aorta and right lung baseatelectasis and pleural effusion. [facility], Radiant Results Inft User - 10/26/2019 12:59 AM CDTCT LUMBAR SPINE WO CONTRASTHISTORY: Back pain, no red flags, initial exam TECHNIQUE: Contiguous thin section axial images were obtained of thelumbar spine. Sagittal and coronal reformatted images were generated.Images were reviewed in soft-tissue and bone detail. . COMPARISON: None.FINDINGS: For the purposes of this dictation, the last well- defined interspace iscalled L5-S1.There is mild loss of the normal lumbar lordosis. There is levocurvature of the lumbar spine. Lumbar vertebral body heights are maintained. There is L2-L3 disc degeneration with L2 vertebral body inferior endplateSchmorl's node and L2-L3 disc bulge.There is mild L4-L5 facet arthropathy.There is grade 1 anterolisthesis of L5 on S1 with associated moderate rightgreater than left facetarthropathy. There is disc vacuum phenomenon atL5-S1 on the left. No acute fracture or traumatic malalignment of the lumbar spine. There is atherosclerosis of the abdominal aorta and right lung baseatelectasis and pleural effusion.IMPRESSIONNo acute fracture or traumatic malalignment of the lumbar spine.Degenerative changes of the lumbar spine with grade 1 anterolisthesis of L5on S1 with associated facet arthropathy and L2-L3 disc degeneration withassociated disc bulge and L2 vertebral body inferior endplate Schmorl'snode.[facility] CenterSEDIMENTATION RATE 2019-10-26 04:54:00 Test Item Value Reference Range Interpretation Comments ESR (test code = >120 See_Comment H [Automated message] 3264264209) The system [employer] generated this result transmitted ref erence range: 0 - 20 m m/HR. The reference r carlitos was not used to interpret this result as normal/abnor mal. Lab Interpretation (test Abnormal code = 43129-7) [facility]IS2020-[facility]-14 18:54:00 Test Item Value Reference Range Interpretation Comments APPEARANCE (test code = Hazy Clear A 4395566996) COLOR (test code = Teresita Yellow A 3263227193) PH (test code = 4.8-8.0 3354665902) SP GRAVITY (test code = 1.003-1.030 8756958412) GLU U QUAL (test code = Normal Normal 2199088394) BLOOD (test code = 3+ Negative A 8298908634) KETONES (test code = Negative Negative 6981268319) PROTEIN (test code = Negative Negative 2887-8) UROBILIN (test code = 4.0 mg/dL Normal A 2053976718) BILIRUBIN (test code = Negative Negative 5676675427) NITRITE (test code = Negative Negative 2021863575) LEUK ALYSHA (test code = Negative Negative 2644174862) RBC/HPF (test code = >182 See_Comment H [Autom ated message] 4528980863) The system [employer] generated this result transmit mary kay reference range : 0 - 3 HPF. The refe rence range was not u sed to interpret th is result as normal/abnormal . WBC/HPF (test code = See_Comment H [Autom ated message] 7510409326) The system [employer] generated this result transmit mary kay reference range : 0 - 5 HPF. The refe rence range was not u sed to interpret th is result as normal/abnormal . BACTERIA (test code = Negative Negative 2589934233) MUCOUS (test code = Slight Negative LPF A 6713709065) SQ EPITH (test code = HPF 9778488561) HYAL CAST (test code = See_Comment [Aut omated message] 2540934312) The system [employer] generated this result transmit mary kay reference range : <=2 LPF. The refere nce range was not u sed to interpret th is result as normal/abnormal . Lab Interpretation (test Abnormal code = 12175-6) [facility]CRE[facility], URINE [id number] 18:42:00 Test Item Value Reference Range Interpretation Comments CREAT U (test code = 5300976407) 106.0 mg/dL [facility] CenterPROTE[facility] CREAT RATIO URINE [id number] 18:39:00 Test Item Value Reference Range Interpretation Comments T. PROT U (test code = 2888-6) 21 mg/dL CREAT U (test code = 6158908143) 106.4 mg/dL Protein/Creatinine Ratio Urine 0.0-2.0 (test code = 8638033699) [facility] CenterSODIUM, URINE [id number] 18:37:00 Test Item Value Reference Range Interpretation Comments NA URINE (test code = 6652173591) 7 mmol/L [facility]XR [facility] 1 [id number] 16:31:45EXAM: XR CHEST 1 VW HISTORY: chest pain COMPARISON: None. FINDINGS: A large dense mass-like opacityin the right lower lung may be a collectionof loculated pleural fluid, consolidated lung, or a neoplasm. The rightupper lung and the left lung are clear. The heart is upper limit of normalin size. CT is recommended for further evaluation. ? [facility], [facility]iant Results Inft User - 10/25/2019 11:32 AM CDT EXAM: XR CHEST 1 VWHISTORY: chest pain COMPARISON: None.FINDINGS:A large dense mass-like opacity in the right lower lung may be a collectionof loculated pleural fluid, consolidated lung, or a neoplasm.The rightupper lung and the left lung are clear. The heart is upper limit of normalin size.CT is recommended for further evaluation.[facility] WITH [id number] 13:48:00 Test Item Value Reference Range Interpretation Comments WBC (test code = See_Comment H [Automated 6690-2) message] The system which generated this result transmitted reference range : 4.30 - 11.10 10*3/?L. The reference range was not used to interpret this result as normal/abnormal . RBC (test code = See_Comment L [Automated 789-8) message] The system which generated this result transmitted reference range : 3.93 - 5.25 10*6/?L. The reference range was not used to interpret this result as normal/abnormal . HGB (test code = 7.9 g/dL 11.6-15 L 718-7) HCT (test code = 22.4 % 35.7-45.2 L 4544-3) MCV (test code = 90.0 fL 80.6-95.5 787-2) MCH (test code = 31.7 pg 25.9-32.8 785-6) MCHC (test code = 35.3 g/dL 31.6-35.1 H 786-4) RDW-SD (test code = 39.0 fL 39-49.9 14104-2) RDW-CV (test code = 12.0 % 12-15.5 788-0) PLT (test code = See_Comment H [Automated 777-3) message] The system which generated this result transmitted reference range : 166 - 358 10*3/?L. The reference range was not used to interpret this result as normal/abnormal . MPV (test code = 9.1 fL 9.5-12.9 L 38284-5) NRBC/100 WBC (test See_Comment [Automat ed code = 9785298982) message] The system which generated this result transmitted reference range : 0.0 - 10.0 /100 WBCs. The reference range was not used to interpret this result as normal/abnormal . NRBC x10^3 (test code <0.01 See_Comment [Auto mated = 1639825011) message] The system which generated this result transmitted reference range : 10*3/?L. The reference range was not used to interpret this result as normal/abnormal . GRAN MAT (NEUT) % 77.5 % (test code = 770-8) IMM GRAN % (test code 2.70 % = 1705274163) LYMPH % (test code = 8.0 % 736-9) MONO % (test code = 10.2 % 5905-5) EOS % (test code = 1.3 % 713-8) BASO % (test code = 0.3 % 706-2) GRAN MAT x10^3(ANC) 11.00 10*3/uL 1.88-7.09 H (test code = 2971408646) IMM GRAN x10^3 (test 0.38 10*3/uL 0-0.06 H code = 1200046974) LYMPH x10^3 (test 1.13 10*3/uL 1.32-3.29 L code = 731-0) MONO x10^3 (test code 1.44 10*3/uL 0.33-0.92 H = 742-7) EOS x10^3 (test code 0.19 10*3/uL 0.03-0.39 = 711-2) BASO x10^3 (test code 0.04 10*3/uL 0.01-0.07 = 704-7) BANDS (test code = MARKED INCREASED A 4006485900) Lab Interpretation Abnormal (test code = 68518-5) [facility] METABOLIC PANEL (NA, K, CL, CO2, GLUCOSE, BUN, CREATININE, CA)2019-10-25 11:39:00 Test Item Value Reference Range Interpretation Comments NA (test code = 129 mmol/L 135-145 L 5158387333) K (test code = 4.0 mmol/L 3.5-5 3043744845) CL (test code = 100 mmol/L 98-108 4272957168) CO2 TOTAL (test code = 20 mmol/L 23-31 L 7544443961) AGAP (test code = 2-16 5484373572) BUN (test code = 40 mg/dL 7-23 H 6765191845) GLUCOSE (test code = 111 mg/dL 70-110 H 7871905171) CREATININE (test code = 1.78 mg/dL 0.5-1.04 H 2742684726) CALCIUM (test code = 8.8 mg/dL 8.6-10.6 7717098062) eGFR Calculation mL/min/1.73m2 (Non-) (test code = 5284923744) eGFR Calculation mL/min/1.73m2 () (test code = 3267716456) SADIE (test code = SADIE) Association of Glomerular Filtration Rate (GFR) and Staging of Kidney Disease* + --+ --+ ------+| GFR (mL/min/1.73 m2) ?| With Kidney Damage ?| ?Without Kidney Damage+ --------+ --------+ +| ?>90 ?| ?Stage one ?| ? Normal ?+ ---+ ---+ -------+| ?60-89 ?| ?Stage two ?| ? Decreased GFR ? + --+ --+ ------+| ?30-59 ?| ?Stage three ?| ? Stage three ? + --+ --+ ------+| ?15-29 ?| ?Stage four ? | ? Stage four ?+ ---+ ---+ -------+| ?<15 (or dialysis) ? ?| ?Stage five ? | ? Stage five ?+ ---+ ---+ -------+ *Each stage assumes the associated GFR level has been in effect for at least three months. ?Stages 1 to 5, with or without kidney disease, indicate chronic kidney disease. Notes: Determination of stages one and two (with eGFR >59mL/min/1.73 m2) requires estimation of kidney damage for at least three months as defined by structural or functional abnormalities of the kidney, manifested by either:Pathological abnormalities or Markers of kidney damage (including abnormalities in the composition of the blood or urine or abnormalities in imaging tests). Lab Interpretation Abnormal (test code = 57044-1) [facility]W [id number] 19:29:15 Acromioclavicular joint osteoarthrosis. No acute fracture. EXAM: XR SHOULDER 2+ VW RIGHT HISTORY: pain COMPARISON: None FINDINGS: Imaging of the right shoulder demonstrates moderate acromioclavicular jointspace narrowing with marginal osteophytes. Lower cervical spineuncovertebral and facet arthropathy with spondylosis are partiallyvisualized. ?A right pleural effusion is suspected with elevation of theright hemidiaphragm with fluid tracking into the minor fissure. [facility], [facility]iant Results Inft User- 10/23/2019 2:30 PM CDTEXAM:XR SHOULDER 2+ VW RIGHTHISTORY:pain COMPARISON:NoneFINDINGS: Imaging of the right shoulder demonstrates moderate acromioclavicular jointspace narrowing with marginal osteophytes. Lower cervical spineuncovertebral and facet arthropathy with spondylosis are partiallyvisualized. A right pleural effusion is suspected with elevation of theright hemidiaphragm with fluid tracking into the minor fissure.IMPRESSIONAcromioclavicular joint osteoarthrosis.No acute fracture. [facility]NM [facility] PER[facility] [id number] 19:39:06 No imaging evidence for pulmonary embolic disease. LUNG PERFUSION INDICATION: Chest pain, acute, nonspecific, low prob CAD TECHNIQUE:The patient received an intravenous injection of 4 mCi of Tc99m MAA and a6-view lung perfusion scan was obtained. A SPECT was obtained, axial,coronal and sagittal images were reviewed..Comparison done to chest CT from 10/21/2019 FINDINGS: The lung perfusion is slightly heterogeneous. Subsegmental perfusiondeficit noted at the right lower lobe and right apex. There is no large orsum of segmental perfusion defects to suspect pulmonary embolic diseaseseen. [facility], Radiant Results Inft User - 10/22/2019 2:40 PM CDTLUNG PERFUSION INDICATION: Chest pain, acute, nonspecific, low prob CAD TECHNIQUE:The patient received an intravenous injection of 4 mCi of Tc99m MAA anda6-view lung perfusion scan was obtained. A SPECT was obtained, axial,coronal and sagittal images were reviewed..Comparison done to chest CT from 10/21/2019 FINDINGS:The lung perfusion is slightly hetero geneous. Subsegmental perfusiondeficit noted at the right lower lobe and right apex. There is no large orsum of segmental perfusion defects to suspect pulmonary embolic diseaseseen.IMPRESSIONNo imagingevidence for pulmonary embolic disease.[facility] CenterN-TERMINAL [id number] 13:45:00 Test Item Value Reference Range Interpretation Comments NT-proBNP (test code 155 pg/mL See_Comment H [Autom ated = 3248156206) message] The system which generated this result transmitted reference range : <=125. The reference range was not used to interpret this result as normal/abnormal . SADIE (test code = SADIE) Biotin has been reported to cause a negative bias, interpret results relative to patient's use of biotin. Lab Interpretation Abnormal (test code = 58824-0) [facility]MAGNESIUM2020-08-11 13:36:00 Test Item Value Reference Range Interpretation Comments MAGNESIUM (test code = 6785787582) 1.7 mg/dL 1.7-2.4 Lab Interpretation (test code = Normal 62518-7) [facility] CenterTROPONIN [id number] 13:20:00 Test Item Value Reference Range Interpretation Comments TROPONIN I (test <0.012 See_Comment [Automated code = 1904600375) message] The system which generated this result transmitted reference range : <=0.034 ng/mL. The reference range was not used to interpr et this result as normal/abnormal . SADIE (test code = Equal or Less than SADIE) 0.034 ng/ml---Normal ?Note: Cardiac troponin begins to rise 3-4 hours after the onset of ischemia. Repeat in 4-6 hours if the sample was drawn within 3-4 hours of the onset of the symptom and found normal. Between 0.035 and 0.120 ng/mL--- Borderline. Questionable myocardial injury or necrosis ? ?Note: Serial measurement may be necessary to confirm or exclude the diagnosis of myocardial injury or necrosis; Clinical correlation (symptoms, EKGs, imaging studies, and others) required; Repeat in 4-6 hours if clinically indicated. ? Equal or Higher than 0.121 ng/mL---Abnormal. Myocardial Injury or Necrosis Likely ? Biotin has been reported to cause a negative bias, interpret results relative to patient's use of biotin. ? Lab Interpretation Normal (test code = 98489-6) [facility] CenteraPTT2020-08-11 12:08:00 Test Item Value Reference Range Interpretation Comments APTT Patient (test See_Comment H [Automat ed code = 3173-2) message] The system which generated this result transmitted reference range : 23 - 38 Seconds . The reference range was not used to interpr et this result as normal/abnormal . SADIE (test code = SADIE) The [facility] patient population mean normal value for aPTT is 30 seconds. Lab Interpretation Abnormal (test code = 79035-9) [facility] CenterBasi Metabolic Panel (NA, K, CL, CO2, GLUCOSE, BUN, CREATININE, CA)2019-10-22 10:29:00 Test Item Value Reference Range Interpretation Comments NA (test code = 135 mmol/L 135-145 5323532454) K (test code = 3.7 mmol/L 3.5-5 9706099744) CL (test code = 105 mmol/L 98-108 9475578196) CO2 TOTAL (test code = 21 mmol/L 23-31 L 3032155830) AGAP (test code = 2-16 5120250414) BUN (test code = 22 mg/dL 7-23 9709735871) GLUCOSE (test code = 169 mg/dL 70-110 H 5773762057) CREATININE (test code = 1.16 mg/dL 0.5-1.04 H 7335499645) CALCIUM (test code = 9.4 mg/dL 8.6-10.6 1064688976) eGFR Calculation mL/min/1.73m2 (Non-) (test code = 4831328676) eGFR Calculation mL/min/1.73m2 () (test code = 3406440123) SADIE (test code = SADIE) Association of Glomerular Filtration Rate (GFR) and Staging of Kidney Disease* + --+ --+ ------+| GFR (mL/min/1.73 m2) ?| With Kidney Damage ?| ?Without Kidney Damage+ --------+ --------+ +| ?>90 ?| ?Stage one ?| ? Normal ?+ ---+ ---+ -------+| ?60-89 ?| ?Stage two ?| ? Decreased GFR ? + --+ --+ ------+| ?30-59 ?| ?Stage three ?| ? Stage three ? + --+ --+ ------+| ?15-29 ?| ?Stage four ? | ? Stage four ?+ ---+ ---+ -------+| ?<15 (or dialysis) ? ?| ?Stage five ? | ? Stage five ?+ ---+ ---+ -------+ *Each stage assumes the associated GFR level has been in effect for at least three months. ?Stages 1 to 5, with or without kidney disease, indicate chronic kidney disease. Notes: Determination of stages one and two (with eGFR >59mL/min/1.73 m2) requires estimation of kidney damage for at least three months as defined by structural or functional abnormalities of the kidney, manifested by either:Pathological abnormalities or Markers of kidney damage (including abnormalities in the composition of the blood or urine or abnormalities in imaging tests). Lab Interpretation Abnormal (test code = 37479-9) [facility] with [id number] 10:14:00 Test Item Value Reference Range Interpretation Comments WBC (test code = See_Comment [Automated 6090-2) message] The sy stem which generated this result transmitted reference range : 4.30 - 11.10 10*3/?L. The reference range was not used to interpret this result as normal/abnormal . RBC (test code = See_Comment L [Automated 978-8) message] The sy stem which generated this result transmitted reference range : 3.93 - 5.25 10*6/?L. The reference range was not used to interpret this result as normal/abnormal . HGB (test code = 9.8 g/dL 11.6-15 L 718-7) HCT (test code = 28.3 % 35.7-45.2 L 4544-3) MCV (test code = 92.2 fL 80.6-95.5 787-2) MCH (test code = 31.9 pg 25.9-32.8 785-6) MCHC (test code = 34.6 g/dL 31.6-35.1 786-4) RDW-SD (test code = 41.8 fL 39-49.9 51583-4) RDW-CV (test code = 12.6 % 12-15.5 788-0) PLT (test code = See_Comment H [Automated 777-3) message] The sy stem which generated this result transmitted reference range : 166 - 358 10*3/ ?L. The reference r carlitos was not used to interpret this result as normal/abnormal . MPV (test code = 9.4 fL 9.5-12.9 L 97501-9) NRBC/100 WBC (test See_Comment [Automat ed code = 7577020192) message] The system which generated this result transmitted reference range : 0.0 - 10.0 /100 WBCs. The refer ence range was not u sed to interpret th is result as normal/abnormal . NRBC x10^3 (test code <0.01 See_Comment [Auto mated = 7411157207) message] The s ystem which generated this result transmitted reference range : 10*3/?L. The reference range was not used to interpret this result as normal/abnormal . GRAN MAT (NEUT) % 76.0 % (test code = 770-8) IMM GRAN % (test code 0.60 % = 9466001065) LYMPH % (test code = 12.4 % 736-9) MONO % (test code = 9.5 % 5905-5) EOS % (test code = 1.3 % 713-8) BASO % (test code = 0.2 % 706-2) GRAN MAT x10^3(ANC) 7.08 10*3/uL 1.88-7.09 (test code = 0419926219) IMM GRAN x10^3 (test 0.06 10*3/uL 0-0.06 code = 0991619222) LYMPH x10^3 (test code 1.15 10*3/uL 1.32-3.29 L = 731-0) MONO x10^3 (test code 0.88 10*3/uL 0.33-0.92 = 742-7) EOS x10^3 (test code = 0.12 10*3/uL 0.03-0.39 711-2) BASO x10^3 (test code <0.03 0.01-0.07 = 704-7) Lab Interpretation Abnormal (test code = 18824-8) [facility] Test Item Value Reference Range Interpretation Comments APPEARANCE (test code = Hazy Clear A 8609268833) COLOR (test code = Teresita Yellow A 4056653632) PH (test code = 4.8-8.0 0803891222) SP GRAVITY (test code = 1.003-1.030 8130522286) GLU U QUAL (test code = Normal Normal 5654130931) BLOOD (test code = 3+ Negative A 9356112209) KETONES (test code = Negative Negative 1380751677) PROTEIN (test code = 30 mg/dL Negative A 2887-8) UROBILIN (test code = 4.0 mg/dL Normal A 7841872360) BILIRUBIN (test code = 2 mg/dL Negative A 0062172698) NITRITE (test code = Negative Negative 0568768738) LEUK ALYSHA (test code = 75/uL Negative A 3241159010) RBC/HPF (test code = See_Comment H [Autom ated message] 0921216648) The system [employer] generated this result transmit mary kay reference range : 0 - 3 HPF. The refe rence range was not u sed to interpret th is result as normal/abnormal . WBC/HPF (test code = See_Comment H [Autom ated message] 7125959641) The system [employer] generated this result transmit mary kay reference range : 0 - 5 HPF. The refe rence range was not u sed to interpret th is result as normal/abnormal . BACTERIA (test code = Moderate Negative A 9134716592) MUCOUS (test code = Moderate Negative LPF A 5558757080) SQ EPITH (test code = HPF 4259233016) HYAL CAST (test code = See_Comment H [Aut omated message] 0200965077) The system [employer] generated this result transmit mary kay reference range : <=2 LPF. The refere nce range was not u sed to interpret th is result as normal/abnormal . Ictotest (test code = Positive 0707898005) GRAN CASTS (test code = See_Comment H [Au tomated message] 9120945103) The system [employer] generated this result transmit mary kay reference range : <=1 LPF. The refere nce range was not u sed to interpret th is result as normal/abnormal . Lab Interpretation (test Abnormal code = 01335-3) [facility] / [id number] 00:28:00 Test Item Value Reference Range Interpretation Comments PROTIME PATIENT (test See_Comment [Auto mated message] code = 5964-2) The system [employer] generated this result transmitted ref erence range: 12.0 - 1 4.7 Seconds. The re ference range was not u sed to interpret this result as normal/abnor mal. INR (test code = 6301-6) Nor mal INR <1.1; Warfarin Therap eutic range 2.0 to 3. 0 or 2.5 to 3.5, dep ending upon the indica tions. Lab Interpretation (test Normal code = 02981-5) [facility] [id number] 00:11:00 Test Item Value Reference Range Interpretation Comments TROPONIN I (test <0.012 See_Comment [Automated code = 4783411537) message] The system which generated this result transmitted reference range : <=0.034 ng/mL. The reference range was not used to interpr et this result as normal/abnormal . SADIE (test code = Equal or Less than SADIE) 0.034 ng/ml---Normal ?Note: Cardiac troponin begins to rise 3-4 hours after the onset of ischemia. Repeat in 4-6 hours if the sample was drawn within 3-4 hours of the onset of the symptom and found normal. Between 0.035 and 0.120 ng/mL--- Borderline. Questionable myocardial injury or necrosis ? ?Note: Serial measurement may be necessary to confirm or exclude the diagnosis of myocardial injury or necrosis; Clinical correlation (symptoms, EKGs, imaging studies, and others) required; Repeat in 4-6 hours if clinically indicated. ? Equal or Higher than 0.121 ng/mL---Abnormal. Myocardial Injury or Necrosis Likely ? Biotin has been reported to cause a negative bias, interpret results relative to patient's use of biotin. ? Lab Interpretation Normal (test code = 08193-6) [facility] CenterCT THORAX WO [id number] 21:41:45 Small to moderate loculated pleural effusions in the right base withadjacent compressive atelectatic changes. No left lung lesion is seen Hepatic steatosis PROCEDURE: CT CHEST NON CONTRAST - CHEST PROTOCOL CLINICAL INDICATION: Cough, persistent Chest pain or SOB, pleuri sy oreffusion suspected ? COMPARISON x-ray chest from 10/21/2019. TECHNIQUE: ?Helical CT was performed of the chest (lung apices to bases). Images were reconstructed at 1.25 mm slice thickness. MIP and coronal &sagittal MPR images were generated and reviewed. ?(DFOV = cm) FINDINGS: Lower neck/thyroid: Unremarkable. Lungs: Loculated pleural effusion at the base of the right lung withadjacent compressive atelectatic changes.. Rest of the right lung is clear. No lesion is seen in the left lung. Central airway: Unremarkable. Pleura: No pleural effusion, thickening or pneumothorax. Thoracic aorta andgreat vessels: ?Normal in diameter. Mild atheroscleroticcalcifications are seen in the arch origin of left subclavian, and thedescending thoracic aorta Pulmonary arteries: Unremarkable. Heart and pericardium: Moderate calcifications in the right coronary andthe LAD. . Unremarkable cardiac morphology and pericardium. Lymph nodes: No enlarged thoracic lymph nodes. Mediastinum: Unremarkable. Thoracic spi ne and chest wall: Unremarkable, with normal thoracic vertebralbody heights. Mild degenerative changes. Other Lines/Tubes/Devices/Hardware: None Visualized upper abdomen.Hepatic steatosis Cholecystectomy [facility], Radiant Results Inft User - 10/21/2019 4:42 PM CDTPROCEDURE:CT CHEST NON CONTRAST - CHEST PROTOCOLCLINICAL INDICATION: Cough, persistent Chest pain or SOB, pleurisy oreffusion suspected COMPARISON x-ray chest from 10/21/2019.TECHNIQUE: Helical CT was performedof the chest (lung apices to bases). Images were reconstructed at 1.25 mm slice thickness. MIP and coronal &sagittal MPR images were generated and reviewed. (DFOV = cm)FINDINGS:Lower neck/thyroid:Unremarkable.Lungs: Loculated pleural effusion at the base of the right lung withadjacent compressive atelectatic changes.. Rest of the right lung is clear.No lesion is seen in the left lung.Central airway: Unremarkable.Pleura: No pleural effusion, thickening or pneumothorax.Thoracic aorta and great ve ssels: Normal in diameter. Mild atheroscleroticcalcifications are seen in the arch origin of left subclavian, and thedescending thoracic aortaPulmonary arteries: Unremarkable.Heart and pericardium: Moderate calcifications in the right coronary andthe LAD. . Unremarkable cardiac morphology and pericard ium.Lymph nodes: No enlarged thoracic lymph nodes.Mediastinum: Unremarkable.Thoracic spine and chestwall: Unremarkable, with normal thoracic vertebralbody heights. Mild degenerative changes.Other Lines /Tubes/Devices/Hardware: NoneVisualized upper abdomen.Hepatic steatosis Cholecystectomy IMPRESSIONSmall to moderate loculated pleural effusions in the right base withadjacent compressive atelectatic changes.No left lung lesion is seenHepatic steatosis [facility] CenterCOMP. METABOLIC PANEL (93299)2019-10-21 18:32:00 Test Item Value Reference Range Interpretation Comments NA (test code = 139 mmol/L 135-145 5056686046) K (test code = 3.5 mmol/L 3.5-5 3952597651) CL (test code = 105 mmol/L 98-108 2255451514) CO2 TOTAL (test code = 23 mmol/L 23-31 5645428151) AGAP (test code = 2-16 0222962240) BUN (test code = 21 mg/dL 7-23 2886959305) GLUCOSE (test code = 178 mg/dL 70-110 H 1605412368) CREATININE (test code = 1.01 mg/dL 0.5-1.04 0644203445) TOTAL BILI (test code = 1.4 mg/dL 0.1-1.1 H 5497266052) CALCIUM (test code = 9.8 mg/dL 8.6-10.6 6083518925) T PROTEIN (test code = 7.2 g/dL 6.3-8.2 3694836097) ALBUMIN (test code = 3.8 g/dL 3.5-5 9169691845) ALK PHOS (test code = 82 U/L 34-122 0296141734) ALTv (test code = 38 U/L 5-35 H 1742-6) AST(SGOT) (test code = 48 U/L 13-40 H 4345575536) eGFR Calculation mL/min/1.73m2 (Non-) (test code = 0321255497) eGFR Calculation mL/min/1.73m2 () (test code = 3047038516) SADIE (test code = SADIE) Association of Glomerular Filtration Rate (GFR) and Staging of Kidney Disease* + --+ --+ ------+| GFR (mL/min/1.73 m2) ?| With Kidney Damage ?| ?Without Kidney Damage+ --------+ --------+ +| ?>90 ?| ?Stage one ?| ? Normal ?+ ---+ ---+ -------+| ?60-89 ?| ?Stage two ?| ? Decreased GFR ? + --+ --+ ------+| ?30-59 ?| ?Stage three ?| ? Stage three ? + --+ --+ ------+| ?15-29 ?| ?Stage four ? | ? Stage four ?+ ---+ ---+ -------+| ?<15 (or dialysis) ? ?| ?Stage five ? | ? Stage five ?+ ---+ ---+ -------+ *Each stage assumes the associated GFR level has been in effect for at least three months. ?Stages 1 to 5, with or without kidney disease, indicate chronic kidney disease. Notes: Determination of stages one and two (with eGFR >59mL/min/1.73 m2) requires estimation of kidney damage for at least three months as defined by structural or functional abnormalities of the kidney, manifested by either:Pathological abnormalities or Markers of kidney damage (including abnormalities in the composition of the blood or urine or abnormalities in imaging tests). Lab Interpretation Abnormal (test code = 27276-6) [facility] CenterD-[id number] 18:28:00 Test Item Value Reference Interpretation Comments Range D-DIMER (test code = See_Comment H [Autom ated 7566636139) message] The system which generated this result transmitted reference range : <0.41 ?g/mL (FEU). The reference range was not used to interpret this result as normal/abnormal . SADIE (test code = This test may be SADIE) used in conjunction with a clinical pretest probability (PTP) assessment model to exclude venous thromboembolism (VTE) in patients suspected of deep venous thrombosis (DVT) and pulmonary embolism (PE) A D-Dimer value less than 0.50 ?g/ml (FEU) has a negative predicative value of 96 to 100% (95% CI)and 97 to 100% (95% CI) as an aid in the diagnosis of deep vein thrombosis (DVT) and pulmonary embolism when there is low or moderate pretest probability of PE or DVT. D-Dimer values are expressed in initial fibrinogen equivalent units (FEU)" The assay results should be used with other information, including the clinical context, in forming a diagnosis. Lab Interpretation Abnormal (test code = 14842-9) [facility] CenterXR [facility] 1 VW [id number] 18:27:47 Suspected patchy airspace opacity in the left lingula. A lateral chestx-ray can be obtained. Disclaimer: Generally, the findings on chest imaging in COVID-19 are notspecific, and overlap with other infections, including influenza, H1N1,SARS and MERS.According to the Centers for Disease Control (CDC)and recent statement ofthe [employer], viral testing remains the only specificmethod of diagnosis. Confirmation with the viral test is required, even ifradiologic findings are suggestive of COVID-[address] PROCEDURE: CHEST, SINGLE VIEW CLINICAL INDICATION: cough, chest pain COMPARISON: None FINDINGS: Lungs: There is suspected airspace retrocardiac opacity . It does notselect the left cardiac margin, is likely in the lingula of the upper lobe No pleural effusion or pneumothorax is seen. The heart is normal in size. No acute bony abnormality. [facility], Radiant Results Inft User - 10/21/2019 1:29 PM CDTPROCEDURE: CHEST, SINGLE VIEWCLINICAL INDICATION: cough, chest pain TAWNYA RISON: NoneFINDINGS:Lungs: There is suspected airspace retrocardiac opacity . It does notselect the left cardiac margin, is likely in the lingula of the upper lobeNo pleural effusion or pneumothorax isseen. The heart is normal in size.No acute bony abnormality.IMPRESSIONSuspected patchy airspace opacity in the left lingula. A lateral chestx-ray can be obtained.Disclaimer: Generally, the findings on chest imaging in COVID-19 are notspecific, and overlap with other infections, including influenza, H1N1,SARS and MERS.According to the Centers for Disease Control (CDC) and recent statement ofthe [employer], viral testing remains the only specificmethod of diagnosis. Confirmation with the viral test is required, even ifradiologic findings are suggestive of COVID- [address] CenterCOVID[facility] (ID NOW RAPID TESTING)2019-10-21 18:10:00 Test Item Value Reference Range Interpretation Comments SARS-CoV-2 Rapid ID NOW Not Detected Not Detected (test code = 17697-1) SADIE (test code = SADIE) ID NOW COVID-19 Assay is an isothermal nucleic acid amplification test intended for the qualitative detection of nucleic acid from SARS-CoV-2 viral RNA in nasopharyngeal (COMMERCIAL DIVER) specimens. It is used under Emergency Use Authorization (EUA) by FDA. The limit of detection (LOD) of the assay is 125 Genome Equivalents/mL. A positive result is indicative of the presence of SARS-CoV-2 RNA. ?Clinical correlation with patient history and other diagnostic information is necessary to determine patient infection status. A negative (Not Detected) result does not preclude SARS-CoV-2 infection. In patients with clinical symptoms and other tests that are consistent with SARS-CoV-2 infection, negative results should be treated as presumptive negative and a new specimen should be tested with alternative PCR molecular test. Invalid: Please collect a new specimen for repeat patient testing if clinically indicated. Lab Interpretation Normal (test code = 12083-9) [facility] WITH [id number] 18:03:00 Test Item Value Reference Range Interpretation Comments WBC (test code = See_Comment [Automated 6690-2) message] The sy stem which generated this result transmitted reference range : 4.30 - 11.10 10*3/?L. The reference range was not used to interpret this result as normal/abnormal . RBC (test code = See_Comment L [Automated 789-8) message] The sy stem which generated this result transmitted reference range : 3.93 - 5.25 10*6/?L. The reference range was not used to interpret this result as normal/abnormal . HGB (test code = 9.9 g/dL 11.6-15 L 718-7) HCT (test code = 27.7 % 35.7-45.2 L 4544-3) MCV (test code = 91.1 fL 80.6-95.5 787-2) MCH (test code = 32.6 pg 25.9-32.8 785-6) MCHC (test code = 35.7 g/dL 31.6-35.1 H 786-4) RDW-SD (test code = 40.8 fL 39-49.9 13881-9) RDW-CV (test code = 12.3 % 12-15.5 788-0) PLT (test code = See_Comment H [Automated 777-3) message] The sy stem which generated this result transmitted reference range : 166 - 358 10*3/ ?L. The reference r carlitos was not used to interpret this result as normal/abnormal . MPV (test code = 9.1 fL 9.5-12.9 L 07356-9) NRBC/100 WBC (test See_Comment [Automat ed code = 5857932002) message] The system which generated this result transmitted reference range : 0.0 - 10.0 /100 WBCs. The refer ence range was not u sed to interpret th is result as normal/abnormal . NRBC x10^3 (test code <0.01 See_Comment [Auto mated = 0776743680) message] The s ystem which generated this result transmitted reference range : 10*3/?L. The reference range was not used to interpret this result as normal/abnormal . GRAN MAT (NEUT) % 76.8 % (test code = 770-8) IMM GRAN % (test code 0.50 % = 0419226099) LYMPH % (test code = 12.1 % 736-9) MONO % (test code = 9.7 % 5905-5) EOS % (test code = 0.5 % 713-8) BASO % (test code = 0.4 % 706-2) GRAN MAT x10^3(ANC) 6.49 10*3/uL 1.88-7.09 (test code = 9511716286) IMM GRAN x10^3 (test 0.04 10*3/uL 0-0.06 code = 3952256391) LYMPH x10^3 (test code 1.02 10*3/uL 1.32-3.29 L = 731-0) MONO x10^3 (test code 0.82 10*3/uL 0.33-0.92 = 742-7) EOS x10^3 (test code = 0.04 10*3/uL 0.03-0.39 711-2) BASO x10^3 (test code 0.03 10*3/uL 0.01-0.07 = 704-7) Lab Interpretation Abnormal (test code = 28174-2) [facility]
[2021-02-07] MEDS ORDERED: FENTANYL CITR 100 MCG/2 ML ONE (18:56)
[2021-02-07] MEDS ORDERED: ONDANSETRON 4 MG/2 ML VIAL ONE (18:56)
[2021-02-07 18:59] LABS: Protime INR 1.01
[2021-02-07 19:00] LABS: Absolute Lymphocytes (CBC) 1.6 K/uL (0.7-4.9); Basophils % 0.7 % (0-1.3); Hematocrit 32.2 % (36.0-45.0); Lymphocytes % 18.1 % (15.3-44.8); MPV 7.7 fL (7.6-11.3); RBC Red Blood Cell Count 3.41 M/uL (3.86-4.86)
--- NOTE | 2021-02-07 19:07 | RAD REPORT ---
EXAM DESCRIPTION: RAD - Chest Single View - 02/07/2021 6:49 pm CLINICAL HISTORY: MALAISE Chest pain. COMPARISON: <Comparisons> FINDINGS: Portable technique limits examination quality. The lungs are grossly clear. The heart is normal in size. No displaced fractures. IMPRESSION: No acute intrathoracic process suspected.
[2021-02-07 19:16] LABS: ALT/SGPT 40 U/L (12-78); AST/SGOT 36 U/L (15-37); Albumin 3.9 g/dL (3.4-5.0); Alkaline Phosphatase 89 U/L (45-117); BUN Blood Urea Nitrogen 26 mg/dL (7-18); Bicarbonate 24 mmol/L (21-32); Bilirubin Direct 0.1 mg/dL (0-0.2); Bilirubin Total 0.3 mg/dL (0.2-1.0); Glucose Level 84 mg/dL (74-106); Magnesium 1.7 mg/dL (1.8-2.4); Potassium 3.4 mmol/L (3.5-5.1); Protein, Total 7.5 g/dL (6.4-8.2); Sodium Level 144 mmol/L (136-145)
[2021-02-07 19:18] LABS: NT PRO-BNP 75 pg/mL (<125); Troponin (Emerg Dept Use Only) < 0.02 ng/mL (0.0-0.045)
[2021-02-07 19:48] LABS: Urine Blood 2+ (Negative); Urine Glucose Negative (Negative); Urine Protein 2+ (Negative); Urine Specific Gravity 1.025 (1.005-1.030)
[2021-02-07] MEDS ORDERED: NA CHLORIDE 0.9% 1,000 ML ONE (19:57)
[2021-02-07 20:01] LABS: Urine Amorphous Sediment 1+ /HPF (NONE SEEN); Urine Bacteria <20 /HPF (<20); Urine Mucus 2+ /HPF (NONE SEEN)
--- NOTE | 2021-02-07 21:14 | RAD REPORT ---
EXAM DESCRIPTION: CT - Head Brain Wo Cont - 02/07/2021 8:16 pm CLINICAL HISTORY: WEAKNESS Headache, drowsiness COMPARISON: <Comparisons> TECHNIQUE: All CT scans are performed using dose optimization technique as appropriate and may inclu de automated exposure control or mA/KV adjustment according to patient size. FINDINGS: No intracranial hemorrhage, hydrocephalus or extra-axial fluid collection.No areas of brai n edema or evidence of midline shift. The paranasal sinuses and mastoids are clear. The calvarium is intact. IMPRESSION: No acute intracranial abnormality.
--- NOTE | 2021-02-07 21:20 | ER ---
Nurse's Notes [facility] Name: Eileen Hernandez Age: 65 yrs Sex: Female : 1955 Arrival Date: 02/07/2021 Time: 17:49 Bed 6 Private MD: Diagnosis: Other specified arthritis Presentation: 02/07 17:58 Chief complaint: Patient states: started on Thanksgiving with leg spasms, back spasms, iw last night her legs felt weak , her knees were in pain, today she was very sweaty and felt dizzy. Coronavirus screen: Client presents with at least one sign or symptom that may indicate coronavirus-19. Ebola Screen: Patient negative for fever greater than or equal to 101.5 degrees Fahrenheit, and additional compatible Ebola Virus Disease symptoms Patient denies exposure to infectious person. Patient denies travel to an Ebola-affected area in the 21 days before illness onset. No symptoms or risks identified at this time. Initial Sepsis Screen: Does the patient meet any 2 criteria? No. Patient's initial sepsis screen is negative. Does the patient have a suspected source of infection? No. Patient's initial sepsis screen is negative. Risk Assessment: Do you want to hurt yourself or someone else? Patient reports no desire to harm self or others. Onset of symptoms was February 04, 2021. 17:58 Method Of Arrival: Wheelchair iw 17:58 Acuity: SRIRAM 3 iw Triage Assessment: 18:00 General: Appears distressed, uncomfortable, obese, Behavior is cooperative, appropriate bp for age, anxious. Pain: Complains of pain in JOINTS. EENT: No deficits noted. Neuro: Level of Consciousness is awake, alert, obeys commands, Oriented to Appropriate for age. Cardiovascular: Rhythm is sinus rhythm. Respiratory: Airway is patent Respiratory effort is even, unlabored, Respiratory pattern is regular, symmetrical. GI: Abdomen is non-distended, obese, Abd is soft X 4 quads. : No signs and/or symptoms were reported regarding the genitourinary system. Musculoskeletal: Reports weakness in GENERALIZED. Historical: - Allergies: 18:00 Codeine; iw 18:00 Red Dye; iw 18:00 Naproxen; iw 18:00 Ibuprofen; iw - PMHx: 18:00 Diabetes mellitus; Hypertensive disorder; Hypercholesterolemia; Pancreatitis; iw - PSHx: 18:00 partial removal of pancreas; Cholecystectomy; Tonsillectomy; mass removed from left iw breast, noncancerous; Appendectomy; - Immunization history:: Client reports receiving the 2nd dose of the Covid vaccine. - Social history:: Smoking status: Patient denies any tobacco usage or history of. Screenin:00 Abuse screen: Denies threats or abuse. Denies injuries from another. Nutritional bp screening: No deficits noted. Tuberculosis screening: No symptoms or risk factors identified. Fall Risk None identified. Assessment: 18:00 General: SEE TRIAGE NOTE. bp 20:04 Pain: Complains of pain in " My neck and my head" Pain currently is 7 out of 10 on a tw5 pain scale. 21:45 Reassessment: Patient states feeling better. Patient states symptoms have improved. tw5 Vital Signs: 17:58 BP 154 / 72; Pulse 76; Resp 16; Temp 96.8; Pulse Ox 100% on R/A; Weight 58.97 kg; iw Height 4 ft. 10 in. (147.32 cm); 20:04 BP 143 / 49; Pulse 65; Resp 14; Pulse Ox 100% on R/A; Pain 7/10; tw5 21:45 BP 152 / 56; Pulse 70; Resp 12; Pulse Ox 100% on R/A; Pain 6/10; tw5 17:58 Body Mass Index 27.17 (58.97 kg, 147.32 cm) ED Course: 17:49 Patient arrived in ED. ja2 18:00 Triage completed. iw 18:00 Patient has correct armband on for positive identification. Bed in low position. Call bp light in reach. Side rails up X2. Adult w/ patient. 18:02 Arm band placed on. iw 18:03 Benny Spencer, RN is Primary Nurse. bp 18:07 Emilia Gould FNP-C is PHCP. kb 18:07 Lake Winter MD is Attending Physician. kb 18:35 EKG done, by ED staff, reviewed by Emilia ONEILL. dh3 18:40 Missed attempt(s): 20 gauge in left antecubital area. Bleeding controlled, band aid dh3 applied, catheter tip intact. 18:44 Basic Metabolic Panel Sent. bp 18:45 Inserted saline lock: 22 gauge in right forearm, using aseptic technique. Blood bp collected. 18:49 XRAY Chest (1 view) In Process Unspecified. EDMS 20:04 desk monitor on. Pulse ox on. NIBP on. Door closed. Noise minimized. Lights dimmed. tw5 Moved to private room. Warm blanket given. Verbal reassurance given. 20:16 CT Head Brain wo Cont In Process Unspecified. EDMS 21:45 No provider procedures requiring assistance completed. IV discontinued, intact, tw5 bleeding controlled, No redness/swelling at site. Pressure dressing applied. Administered Medications: 18:35 Drug: Zofran (Ondansetron) 4 mg Route: IVP; Site: right forearm; bp 19:12 Follow up: Response: No adverse reaction bp 20:05 Follow up: Response: No adverse reaction tw5 18:35 Drug: fentaNYL (PF) 25 mcg Route: IVP; Site: right forearm; bp 19:12 Follow up: Response: Pain is decreased bp 20:05 Follow up: Response: No adverse reaction; Pain is decreased; RASS: Alert and Calm (0) tw5 20:05 Drug: NS 0.9% 1000 ml Route: IV; Rate: 1000 ml; Site: right wrist; tw5 21:45 Follow up: IV Status: Order to discontinue infusion tw5 21:45 Drug: Flexeril (cyclobenzaprine) 10 mg Route: PO; tw5 21:46 Follow up: Response: Medication administered at discharge. tw5 Outcome: 21:19 Discharge ordered by . kb 21:45 Discharged to home ambulatory, with family. tw5 21:45 Condition: good 21:45 Discharge instructions given to patient, family, Instructed on discharge instructions, follow up and referral plans. no drinking with medication, no driving heavy equipment, medication usage, Demonstrated understanding of instructions, follow-up care, medications, Prescriptions given X 1. 21:46 Patient left the ED. tw5 Signatures: Dispatcher [employer] EDPA Emilia Gould, MAI WATSON-Samira Rolon RN ENRIQUE Myrna Cam [facility] Benny Spencer RN RN Luz Oswald Tiffany tw5 Corrections: (The following items were deleted from the chart) 19:01 18:45 fentaNYL (PF) 25 mcg IVP in right forearm bp bp
--- NOTE | 2021-02-07 21:20 | EDPHYS ---
Physician Documentation [facility] Name: Eileen Hernandez Age: 65 yrs Sex: Female : 1955 Arrival Date: 02/07/2021 Time: 17:49 Bed 6 Private MD: ED Physician Lake Winter HPI: 02/07 22:15 This 65 yrs old Female presents to ER via Wheelchair with complaints of kb General Weakness, NUMB LEGS, Fever. 22:15 The patient has not recently seen a physician. kb 22:15 Onset: The symptoms/episode began/occurred 4 day(s) ago. Severity of symptoms: At their kb worst the symptoms were moderate in the emergency department the symptoms are unchanged. The patient has experienced similar episodes in the past. Pt reports bilateral knee, wrists and neck pain that started on Thanksgiving. States she has had this pain before due to arthritis, but not this bad. Also reports weakness since Thanksgiving. STates she did more than normal that day. Historical: - Allergies: 18:00 Codeine; iw 18:00 Red Dye; iw 18:00 Naproxen; iw 18:00 Ibuprofen; iw - PMHx: 18:00 Diabetes mellitus; Hypertensive disorder; Hypercholesterolemia; Pancreatitis; iw - PSHx: 18:00 partial removal of pancreas; Cholecystectomy; Tonsillectomy; mass removed from left iw breast, noncancerous; Appendectomy; - Immunization history:: Client reports receiving the 2nd dose of the Covid vaccine. - Social history:: Smoking status: Patient denies any tobacco usage or history of. ROS: 18:42 Constitutional: Negative for fever, chills, and weight loss. kb 18:42 MS/extremity: Positive for pain, of the knees, wrists, neck. 18:42 Neuro: Positive for weakness. 18:42 All other systems are negative. Exam: 18:26 Constitutional: This is a well developed, well nourished patient who is awake, alert, kb and in no acute distress. Head/Face: Normocephalic, atraumatic. Eyes: Pupils equal round and reactive to light, extra-ocular motions intact. Lids and lashes normal. Conjunctiva and sclera are non-icteric and not injected. Cornea within normal limits. Periorbital areas with no swelling, redness, or edema. ENT: Moist Mucous membranes Cardiovascular: Regular rate and rhythm with a normal S1 and S2. No gallops, murmurs, or rubs. No pulse deficits. Respiratory: Respirations even and unlabored. No increased work of breathing, no retractions or nasal flaring. Abdomen/GI: Soft, non-tender. No distention Skin: Warm, dry with normal turgor. Normal color. MS/ Extremity: Pulses equal, no cyanosis. Neurovascular intact. Full, normal range of motion. Neuro: Awake and alert, GCS 15, oriented to person, place, time, and situation. Moves all extremities. Normal gait. Psych: Awake, alert, with orientation to person, place and time. Behavior, mood, and affect are within normal limits. 18:26 ECG was reviewed by the Attending Physician. Vital Signs: 17:58 BP 154 / 72; Pulse 76; Resp 16; Temp 96.8; Pulse Ox 100% on R/A; Weight 58.97 kg; iw Height 4 ft. 10 in. (147.32 cm); 20:04 BP 143 / 49; Pulse 65; Resp 14; Pulse Ox 100% on R/A; Pain 7/10; tw5 21:45 BP 152 / 56; Pulse 70; Resp 12; Pulse Ox 100% on R/A; Pain 6/10; tw5 17:58 Body Mass Index 27.17 (58.97 kg, 147.32 cm) iw MDM: 18:07 Patient medically screened. kb 18:27 Data reviewed: vital signs, nurses notes. Data interpreted: Pulse oximetry: on room air kb is 100 %. Interpretation: normal. 21:16 Counseling: I had a detailed discussion with the patient and/or guardian regarding: the kb historical points, exam findings, and any diagnostic results supporting the discharge/admit diagnosis, lab results, radiology results, the need for outpatient follow up, a family practitioner, to return to the emergency department if symptoms worsen or persist or if there are any questions or concerns that arise at home. 02/07 18:08 Order name: Basic Metabolic Panel sp3 02/07 18:08 Order name: CBC with Diff; Complete Time: 19:02 sp3 02/07 18:08 Order name: LFT's; Complete Time: 19:35 sp3 02/07 18:08 Order name: Magnesium; Complete Time: 19:35 sp3 02/07 18:08 Order name: NT PRO-BNP; Complete Time: 19:35 3 02/07 18:08 Order name: PT-INR; Complete Time: 19:00 3 02/07 18:08 Order name: Troponin (emerg Dept Use Only); Complete Time: 19:35 3 02/07 18:08 Order name: XRAY Chest (1 view); Complete Time: 19:09 3 02/07 18:08 Order name: UA MICROSCOPIC; Complete Time: 20:02 3 02/07 18:08 Order name: Basic Metabolic Panel; Complete Time: 19:35 EDMS 02/07 19:48 Order name: Urine Dipstick-Ancillary; Complete Time: 19:53 EDMS 02/07 19:54 Order name: CT Head Brain wo Cont; Complete Time: 21:15 kb 02/07 18:08 Order name: EKG; Complete Time: 18:09 3 02/07 18:08 Order name: Cardiac monitoring; Complete Time: 18:34 3 02/07 18:08 Order name: EKG - Nurse/Tech; Complete Time: 18:34 3 02/07 18:08 Order name: IV Saline Lock; Complete Time: 18:44 3 02/07 18:08 Order name: Labs collected and sent; Complete Time: 18:44 [facility] 02/07 18:08 Order name: O2 Per Protocol; Complete Time: 18:33 3 02/07 18:08 Order name: O2 Sat Monitoring; Complete Time: 18:33 3 02/07 18:08 Order name: Urine Dipstick-Ancillary (obtain specimen); Complete Time: 19:57 sp3 EC:26 Rate is 70 beats/min. Rhythm is regular. QRS [place] is Normal. ND interval is normal at kb 162 msec. QRS interval is normal at 80 msec. QT interval is normal at 386 msec. Administered Medications: 18:35 Drug: Zofran (Ondansetron) 4 mg Route: IVP; Site: right forearm; bp 19:12 Follow up: Response: No adverse reaction bp 20:05 Follow up: Response: No adverse reaction tw5 18:35 Drug: fentaNYL (PF) 25 mcg Route: IVP; Site: right forearm; bp 19:12 Follow up: Response: Pain is decreased bp 20:05 Follow up: Response: No adverse reaction; Pain is decreased; RASS: Alert and Calm (0) tw5 20:05 Drug: NS 0.9% 1000 ml Route: IV; Rate: 1000 ml; Site: right wrist; tw5 21:45 Follow up: IV Status: Order to discontinue infusion 21:45 Drug: Flexeril (cyclobenzaprine) 10 mg Route: PO; tw5 21:46 Follow up: Response: Medication administered at discharge. tw5 Disposition: 02/08 09:20 Co-signature as Attending Physician, Lake Winter MD I agree with the assessment and sp3 plan of care. Disposition Summary: 02/07/21 21:19 Discharge Ordered Location: Home kb Condition: Stable kb Diagnosis - Other specified arthritis kb Followup: kb - With: Emergency Department - When: As needed - Reason: Worsening of condition Followup: kb - With: Private Physician - When: 2 - 3 days - Reason: Recheck today's complaints, Continuance of care, Re-evaluation by your physician Discharge Instructions: - Discharge Summary Sheet kb - Arthritis, [id number] kb Forms: - Medication Reconciliation Form kb - Thank You Letter kb - Antibiotic Education kb - Prescription Opioid Use kb Prescriptions: - Cyclobenzaprine 10 mg Oral Tablet - take 1 tablet by ORAL route every 8 hours As needed; 21 tablet; Refills: 0, kb Product Selection Permitted Signatures: Dispatcher [employer] Emilia Adame, [employer]-Samira Rolon, RN Benny Yung RN RN bp Patel, Setul, MD MD sp3 Krystina Nye tw5 Corrections: (The following items were deleted from the chart) 02/07 22:16 22:15 The patient has not experienced similar symptoms in the past, kb kb
[2021-02-07] MEDS ORDERED: CYCLOBENZAPRINE 10 MG TAB ONE (21:40)
[2021-02-07 21:57] VITALS: TEMP 96.8; O2SAT 100
[2021-02-07 22:01] VITALS: BP 152/56
== END 2021-02-07 21:46 | disposition home or self-care (01) ==
LOC: ER 17:39
DX: M13.88 Other specified arthritis, other site (principal); E11.9 Type 2 diabetes mellitus without complications; I10 Essential (primary) hypertension; Z88.5 Allergy status to narcotic agent; Z88.6 Allergy status to analgesic agent; Z91.02 Food additives allergy status
CPT/HCPCS: 96361; 93005; 85025; 80048; 36415; 83735; 85610; 80076; 84484; 83880; 70450; 71045; 96375; 96374; 99284; J3010; J7030; J2405; 81003; 81015

== ENCOUNTER 2021-02-26 06:22 | Day surgery (SDC) | payer OTHER ==
[2021-02-26] MEDS ORDERED: NA CHLORIDE 0.9% 1,000 ML ONE (06:39)
[2021-02-26] MEDS ORDERED: CEFAZOLIN/NS 1gm 1 GM/50 ML BAG ONE (06:40)
[2021-02-26] MEDS ORDERED: BUPIVACAINE 0.5% PF 10 ML VIAL ONE (06:55)
[2021-02-26] MEDS ORDERED: FENTANYL CITR 100 MCG/2 ML ONE (07:07)
[2021-02-26] MEDS ORDERED: LIDOCAINE 2% MPF 5 ML VIAL ONE (07:07)
[2021-02-26] MEDS ORDERED: MIDAZOLAM HCL 2 MG/2 ML INJ ONE (07:07)
[2021-02-26] MEDS ORDERED: propofoL 200 MG/20 ML VIAL IV ONE (07:08)
[2021-02-26] MEDS ORDERED: GLYCOPYRROLATE 0.2 MG/ML SYR ONE (07:12)
[2021-02-26] MEDS ORDERED: ONDANSETRON 4 MG/2 ML VIAL ONE (07:55)
[2021-02-26] MEDS ORDERED: KETOROLAC 30 MG/ML INJ ONE (07:55)
[2021-02-26] MEDS ORDERED: dexAMETHasone 10 MG/ML VIAL ONE (07:55)
[2021-02-26 08:31] VITALS: O2SAT 100
[2021-02-26] MEDS: FENTANYL CITR 100 MCG/2 ML ONE ×3 (08:34→08:47)
--- NOTE | 2021-02-26 09:06 | OP ---
Date of Procedure: 02/26/2021 Surgeon: Stefano Azar MD Home Economics Teacher: Sree Cope, [employer]ube And Manifold Builder. Preoperative Diagnosis: Nonhealing wound, abdomen. Postoperative Diagnosis: Nonhealing wound, abdomen, suture granuloma. Procedure Performed: Exploration of abdominal wound, excision of suture granuloma, and layered closu re of the wound 4 x 1 cm. Estimated Blood Loss: Minimal. Specimen: Suture granuloma. Findings: As above. Anesthesia: General. Complications: None. Disposition: The patient tolerated procedure well, in stable condition, taken to Recovery in good ge neral condition. Procedure In Detail: The patient brought to the OR and placed in supine position. General anesthesi a begun. The patient was prepped and draped in the usual sterile fashion. Marcaine 0.5% was infiltr ated locally. A 15-blade was used to make a 4 x 1 cm incision over the small opening in the superior aspect of a previous midline scar and subcutaneous tissue divided and there was a tract identified a nd followed all the way to the fascia and there was a Dexon suture present. The entire suture granul queta was excised, sent to Pathology. Wound irrigated. Bleeding controlled with cautery. The fascial defect was closed with [id number] #1 PDS suture and wound irrigated, bleeding controlled with c autery, then 3-0 chromic used to reapproximate subcutaneous tissue and the 4-0 nylon used to close th e skin. Sterile dressing applied. The patient awakened and taken to Recovery in good general condit ion. Discharge Note: The patient will go to Day Surgery and home when stable. Disposition: Home. Condition: Stable. Discharge Instructions: Resume home medications and diet. Activity as tolerated. No heavy lifting. Remove outer dressing. In 2 days, shower. Keep wound clean and dry. Follow up [facility]. Call for appointment. Ultracet 1 tablet p.o. q.4 p.r.n. pain, Keflex 500 mg p.o. q.6h. /MODL Voice ID: [id number] Report ID: [id number]
[2021-02-26] MEDS ORDERED: TRAMADOL 37.5mg/APAP 325mg PER TAB ONE (09:18)
[2021-02-26 11:01] VITALS: BP 145/60; TEMP 96.7
== END 2021-02-26 10:08 | disposition home or self-care (01) ==
LOC: OR 06:22
PROVIDERS: ATTEND Surgery
PROC: 0JB80ZZ Excision of Abdomen Subcutaneous Tissue and Fascia, Open Approach (ICD-10-PCS; principal; 2021-02-26 07:30)
DX: T81.89XD Other complications of procedures, not elsewhere classified, subsequent encounter (principal); S31.109D Unspecified open wound of abdominal wall, unspecified quadrant without penetration into peritoneal cavity, subsequent encounter; L92.9 Granulomatous disorder of the skin and subcutaneous tissue, unspecified; Z20.822 Contact with and (suspected) exposure to COVID-19
CPT/HCPCS: 82947 ×2; 88304; 11402; U0003; J2704; J2250; J3010 ×2; J1100; J0690; J7030; J2405

== ENCOUNTER 2021-08-23 19:51 | Emergency (ER) | payer OTHER ==
--- OUTSIDE RECORDS SUMMARY | 2021-08-23 20:01 | XMS REPORT | Continuity of Care Document ---
:1955 Author Organization [facility] t Address [address] [place] [address] Care Team Providers Name Role Phone Antonieta Michael Attending Clinician Unavailable GAYLORD_S Attending Clinician Unavailable Cyrus KAUR Attending Clinician Unknown Attending Clinician Unavailable Otis KAUR Attending Clinician UNKNOWN Attending Clinician Unavailable Jean-Paul TODD Attending Clinician Unavailable Antoinette Herrera MD Attending Clinician Antoinette HERRERA Attending Clinician Unavailable Doctor Unassigned, Name Attending Clinician Unavailable Kaleigh Simmons MD Attending Clinician Kaleigh SIMOMNS Attending Clinician Unavailable Francois Eller MD Attending [...] Clinician Unavailable WOODROW NEWMAN Attending Clinician Unavailable GAY_S Admitting Clinician Unavailable Magali KAUR Admitting Clinician EMERGENCY ROOM Admitting Clinician Unavailable Payers Payer Name Policy Type Policy Number Effective Date Expiration Date S darshan [employer] [id number] 2020 (MEDICARE 00:00:00 REPLACEMENT HMO) Problems Condition Condition Condition Status Onset Resolution Last Treating Co mments Source Name Details Category Date Date Treatment Clinician Date Empyema of Empyema of Disease Active 2020-0 U nivers lung lung 8-16 ity of 00:00: [place] [facility] Lung Lung Disease Active 2020-0 Univers abscess abscess 8-16 ity of 00:: Medical Branch Poor Poor Disease Active 2020-0 Univers dentition dentition 8-16 ity of 00:00: Medical Branch Cough Cough Disease Active 2020-0 Univers 8-15 ity of 00:: Medical Branch Hepatic Hepatic Disease Active 2020- Univers steatosis steatosis 8-15 ity of 00:00: Medical Branch MIHAELA (acute MIHAELA (acute Disease Active 2020-0 U nivers kidney kidney 8-14 ity of injury) injury) 00:00: Medical Branch Obesity Obesity Disease Active 2020-0 Univers (BMI (BMI 8-11 ity of 30-39.9) 30-39.9) 00:00: Medical Branch Essential Essential Disease Active 2020-0 Uni vers hypertensi hypertensi 8-11 it y of on on 00:00: Medical Branch Other Other Disease Active 2020-0 Univers hyperlipid hyperlipid 8-11 it y of emia emia 00:00: Medical Branch Type 2 Type 2 Disease Active 2020-0 Univers diabetes diabetes 8-11 ity of mellitus mellitus 00:00: [place] without without 00 Medical complicati complicati Br anch on, on, without without long-term long-term current current use of use of insulin insulin Pleural Pleural Disease Active 2020-0 Overview: Univ ers effusion effusion 8-10 Added ity of 00:00: automatic 00 ally from Medical request Branch for surgery [id number] 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 [place] shania 00 [facility] Depression Depression Disease Active 0 U nivers 4-21 ity of 00:00: Medical Branch GERD GERD Disease Active 0 Univers (gastroeso (gastroeso 7-16 it y of [...] ity of 00:00: [place] 00 Medical Branch Social History Social Habit Start Date Stop Date Quantity Comments Source Exposure to Not sure University of SARS-CoV-2 [place] [facility] (event) Branch Sex Assigned At [facility] Tobacco use and 2019-12-31 2019-12-31 Former user Universi ty of exposure 00:00:00 00:00:00 [facility] Tobacco Comment 2019-10-26 2019-10-26 quit 25yrs ago Unive rsity of 00:00:00 00:00:00 [facility] Smoking Status Start Date Stop Date Source Former smoker 2019-12-31 00:00:2019-12-31 00:00:00 Universi ty of [facility] Medications Ordered Filled Start Stop Current Ordering Indication Dosage Frequency Signature Comments Components Source Medication Medication Date Date Medication? Clinician (SIG) Name Name lidocaine 2019- No 1.5mL U nivers PF 2% 0-20 10-20 ity of (XYLOCAINE- 20:45: 20:04 [facility]) 00 :00 Medical injection Branch 1.5 mL lidocaine 2019-03 No 4mL Un noah PF 2% 0-20 10-20 ity of (XYLOCAINE- 20:45: 20:07 [facility]) 00 :00 Medical injection 4 Branch mL triamcinolo 2019-03 No 40mg Univers ne 0-20 10-20 ity of acetonide 20:45: 20:09 [place] ([place]) 00 :00 Medical injection Branch 40 mg lidocaine 2019-03 1.5mL U nivers PF 2% 0-20 10-20 ity of (XYLOCAINE- 20:45: 20:01 [facility]) 00 :00 Medical injection Branch 1.5 mL lidocaine 2019-03 4mL Un noah PF 2% 0-20 10-20 ity of (XYLOCAINE- 20:45: 20:05 [facility]) 00 :00 Medical injection 4 Branch mL triamcinolo 2019-03 No 40mg Univers ne 0-20 10-20 ity of acetonide 20:45: 20:08 [place] ([place]) 00 :00 Medical injection Branch 40 mg triamcinolo 2019-03 No 40mg 40 mg, Univers ne 0-20 10-20 Intra-sarina ity of acetonide 20:45: 20:08 [place], [place] ([place]LOG) 00 :00 ONCE, 1 Medical injection dose, Tue Branc h 40 mg 10/20/20 at 1545, Routine lidocaine 2019-03 No 4mL 4 mL, U nivers PF 2% 0-20 10-20 Intra-sarina ity of (XYLOCAINE- 20:45: 20:05 [facility] as MPF) 00 :00 ONCE NOW, Medical injection 4 1 dose, Branc h mL 10/20/20 at 1545, Routine lidocaine 2019-03 No 1.5mL 1.5 mL, Univers PF 2% 0-20 10-20 Infiltrati ity of (XYLOCAINE- 20:45: 20:01 on, [place]CE [place] [facility]) 00 :00 NOW, 1 Medical injection dose, Tue Branc h 1.5 mL 20 at 1545, Routine triamcinolo 2019-03- No 40mg 40 mg, Univers ne 0-20 10-20 Intra-sarina ity of acetonide 20:45: 20:09 [place], [place] ([place]) 00 :00 ONCE, 1 Medical injection dose, Tue Branc h 40 mg 12/31/19 at 1545, Routine lidocaine 2019-03 No 4mL 4 mL, U nivers PF 2% 0-20 10-20 Intra-sarina ity of (XYLOCAINE- 20:45: 20:07 [facility] as MPF) 00 :00 ONCE NOW, [...] 0-20 10-20 ity of (XYLOCAINE- 20:45: 20:04 [facility]) 00 :00 Medical injection Branch 1.5 mL lidocaine 2019-03- No 4mL Un noah PF 2% 0-20 10-20 ity of (XYLOCAINE- 20:45: 20:07 [facility]) 00 :00 Medical injection 4 Branch mL triamcinolo 2019-2019- No 40mg Univers ne 0-20 10-20 ity of acetonide 20:45: 20:09 [place] ([place]) 00 :00 Medical injection Branch 40 mg lidocaine 2019-03- No 1.5mL U nivers PF 2% 0-20 10-20 ity of (XYLOCAINE- 20:45: 20:01 [facility]) 00 :00 Medical injection Branch 1.5 mL lidocaine 2019-03 No 4mL Un noah PF 2% 0-20 10-20 ity of (XYLOCAINE- 20:45: 20:05 [facility]) 00 :00 Medical injection 4 Branch mL triamcinolo 2019-03 No 40mg Univers ne 0-20 10-20 ity of acetonide 20:45: 20:08 [place] ([place]) 00 :00 Medical injection Branch 40 mg triamcinolo 2019-03 No 40mg 40 mg, Univers ne 0-20 10-20 Intra-sarina ity of acetonide 20:45: 20:08 [place], [place] ([place]) 00 :00 ONCE, 1 Medical injection dose, Tue Branc h 40 mg 10/20/20 at 1545, Routine lidocaine 2019-03 No 4mL 4 mL, U nivers PF 2% 0-20 10-20 Intra-sarina ity of (XYLOCAINE- 20:45: 20:05 [facility] [place] as MPF) 00 :00 ONCE NOW, Medical injection 4 1 dose, Branc h mL 10/20/20 at 1545, Routine lidocaine 2019-03 No 1.5mL 1.5 mL, Univers PF 2% 0-20 10-20 Infiltrati ity of (XYLOCAINE- 20:45: 20:01 [facility], 1 Medical injection dose, Tue Branc h 1.5 mL 10/20/20 at 1545, Routine triamcinolo 2019-03 No 40mg 40 mg, Univers ne 0-20 10-20 Intra-sarina ity of acetonide 20:45: 20:09 [place], [place] ([place]) 00 :00 ONCE, 1 Medical injection dose, Tue Branc h 40 mg 10/20/20 at 1545, Routine lidocaine 2019-03 No 4mL 4 mL, U nivers PF 2% 0-20 10-20 Intra-sarina ity of (XYLOCAINE- 20:45: 20:07 [facility] [place] as MPF) 00 :00 ONCE NOW, Medical injection 4 1 dose, Branc h mL 10/20/20 at 1545, Routine lidocaine 2019-03 2020- No [id number] 1.5mL 1.5 mL, Univers PF 2% 0-20 -20 Infiltrati ity of (XYLOCAINE- 20:45: 20:04 on, ONCE [place] [facility]) 00 :00 NOW, 1 Medical injection dose, Tue Branc h 1.5 mL 12/31/19 at 1545, Routine FAMOTIDINE 2019-03 Yes Take by Uni vers 20 MG ORAL 0-06 mouth ity of TAB 14:29: daily. [address] Branch FENOFIBRATE 2019-03 Yes 145mg Take 145 U nivers 160 MG ORAL 0-06 mg by ity of TAB 14:29: mouth at [place] [address] bedtime. Medical Branch simvastatin 2019-03 Yes 40mg Take 40 mg Univers 20 mg 0-06 by mouth ity of tablet 14:29: at [place] [address] bedtime. Medical Branch hydroCHLORO 2019- Yes 25mg Take 25 mg Univers thiazide 25 0-06 by mouth ity of mg tablet 14:29: daily. [address] Branch lisinopril 2019-03 Yes 20mg Take 20 mg U nivers 20 mg 0-06 by mouth ity of tablet 14:29: daily. [address] Branch metformin 2019-03 Yes 500mg Take 500 Uni vers HCl 0-06 mg by ity of (METFORMIN 14:29: [place] (two) Medical times Branch daily with meals. FAMOTIDINE 2019-03 Yes Take by Uni vers 20 MG ORAL 0-06 mouth ity of TAB 14:29: daily. [address] Branch FENOFIBRATE 2019-03 Yes 145mg Take 145 U nivers 160 MG ORAL 0-06 mg by ity of TAB 14:29: mouth at [place] [address] bedtime. Medical Branch simvastatin 2019-03 Yes 40mg Take 40 mg Univers 20 mg 0-06 by mouth ity of tablet 14:29: at [place] [address] bedtime. Medical Branch hydroCHLORO 2019- Yes 25mg Take 25 mg Univers thiazide 25 0-06 by mouth ity of mg tablet 14:29: daily. [address] Branch lisinopril 2019-03 Yes 20mg Take 20 mg U nivers 20 mg 0-06 by mouth ity of tablet 14:29: daily. [address] Branch metformin 2019- Yes 500mg Take 500 Uni vers HCl 0-06 mg by ity of (METFORMIN 14:29: [place] (two) Medical times Branch daily with meals. FAMOTIDINE 2019-03 Yes Take by Uni vers 20 MG ORAL 0-06 mouth ity of TAB 14:29: daily. [place] [address] Medical Branch FENOFIBRATE 2019- Yes 145mg Take 145 U nivers 160 MG ORAL 0-06 mg by ity of TAB 14:29: mouth at [place] [address] bedtime. Medical Branch simvastatin 2019- Yes 40mg Take 40 mg Univers 20 mg 0-06 by mouth ity of tablet 14:29: at [place] [address] bedtime. Medical Branch hydroCHLORO 2019- Yes 25mg Take 25 mg Univers thiazide 25 0-06 by mouth ity of mg tablet 14:29: daily. [address] Branch lisinopril 2019-03 Yes 20mg Take 20 mg U nivers 20 mg 0-06 by mouth ity of tablet 14:29: daily. [place] [address] Medical [place] metformin 2019- Yes 500mg Take 500 Uni vers HCl 0-06 mg by ity of (METFORMIN 14:29: [place] (two) Medical times [place] daily with meals. FAMOTIDINE 2019-03 Yes Take by Uni vers 20 MG ORAL 0-06 mouth ity of TAB 14:29: daily. [address] FENOFIBRATE 2019- Yes 145mg Take 145 U nivers 160 MG ORAL 0-06 mg by ity of TAB 14:29: mouth at [place] [address] bedtime. Medical Branch simvastatin 2019- Yes 40mg Take 40 mg Univers 20 mg 0-06 by mouth ity of tablet 14:29: at [place] [address] bedtime. Medical Branch hydroCHLORO 2019- Yes 25mg Take 25 mg Univers thiazide 25 0-06 by mouth ity of mg tablet 14:29: daily. [address] Branch lisinopril 2019- Yes 20mg Take 20 mg U nivers 20 mg 0-06 by mouth ity of tablet 14:29: daily. [place] [address] Medical [place] metformin 2019- Yes 500mg Take 500 Uni vers HCl 0-06 mg by ity of (METFORMIN 14:29: [place] (two) Medical times [place] daily with meals. FAMOTIDINE 2019- Yes Take by Uni vers 20 MG ORAL 0-06 mouth ity of TAB 14:29: daily. [place] 04 Medical Branch FENOFIBRATE 2020- Yes 145mg Take 145 U nivers 160 MG ORAL 0-06 mg by ity of TAB 14:29: mouth at [place] [address] bedtime. Medical Branch simvastatin 2020- Yes 40mg Take 40 mg Univers 20 mg 0-06 by mouth ity of tablet 14:29: at [place] [address] bedtime. Medical Branch hydroCHLORO 2020-1 Yes 25mg Take 25 mg Univers thiazide 25 0-06 by mouth ity of mg tablet 14:29: daily. [place] [address] Medical Branch lisinopril 2019- Yes 20mg Take 20 mg U nivers 20 mg 0-06 by mouth ity of tablet 14:29: daily. [place] [address] Medical Branch metformin 2019- Yes 500mg Take 500 Uni vers HCl 0-06 mg by ity of (METFORMIN 14:29: [place] (two) Medical times [place] daily with meals. FAMOTIDINE 2019- Yes Take by Uni vers 20 MG ORAL 0-06 mouth ity of TAB 14:29: daily. [place] [address] Medical Branch FENOFIBRATE 2019- Yes 145mg Take 145 U nivers 160 MG ORAL 0-06 mg by ity of TAB 14:29: mouth at [place] [address] bedtime. Medical Branch simvastatin 2019- Yes 40mg Take 40 mg Univers 20 mg 0-06 by mouth ity of tablet 14:29: at [place] [address] bedtime. Medical Branch hydroCHLORO 2019- Yes 25mg Take 25 mg Univers thiazide 25 0-06 by mouth ity of mg tablet 14:29: daily. [address] Branch lisinopril 2019- Yes 20mg Take 20 mg U nivers 20 mg 0-06 by mouth ity of tablet 14:29: daily. [place] [address] Medical Branch metformin 2019- Yes 500mg Take 500 Uni vers HCl 0-06 mg by ity of (METFORMIN 14:29: [place] 2 [place] 04 (two) Medical times [place] daily with meals. FAMOTIDINE 2019- Yes Take by Uni vers 20 MG ORAL 0-06 mouth ity of TAB 14:29: daily. [address] FENOFIBRATE 2019- Yes 145mg Take 145 U nivers 160 MG ORAL 0-06 mg by ity of TAB 14:29: mouth at [place] [address] bedtime. Medical Branch simvastatin 2020- Yes 40mg Take 40 mg Univers 20 mg 0-06 by mouth ity of tablet 14:29: at [place] [address] bedtime. Medical Branch hydroCHLORO 2020- Yes 25mg Take 25 mg Univers thiazide 25 0-06 by mouth ity of mg tablet 14:29: daily. [address] Branch lisinopril 2019- Yes 20mg Take 20 mg U nivers 20 mg 0-06 by mouth ity of tablet 14:29: daily. [address] metformin 2019- Yes 500mg Take 500 Uni vers HCl 0-06 mg by ity of (METFORMIN 14:29: [place] 2 [place] (two) Medical times [place] daily with meals. FAMOTIDINE 2019- Yes Take by Uni vers 20 MG ORAL 0-06 mouth ity of TAB 14:29: daily. [address] Branch FENOFIBRATE 2019- Yes 145mg Take 145 U nivers 160 MG ORAL 0-06 mg by ity of TAB 14:29: mouth at [place] [address] bedtime. Medical Branch simvastatin 2019- Yes 40mg Take 40 mg Univers 20 mg 0-06 by mouth ity of tablet 14:29: at [place] [address] bedtime. Medical Branch hydroCHLORO 2019- Yes 25mg Take 25 mg Univers thiazide 25 0-06 by mouth ity of mg tablet 14:29: daily. [address] lisinopril 2019- Yes 20mg Take 20 mg U nivers 20 mg 0-06 by mouth ity of tablet 14:29: daily. [address] metformin 2019- Yes 500mg Take 500 Uni vers HCl 0-06 mg by ity of (METFORMIN 14:29: mouth 2 [place] (two) Medical times [place] daily with meals. FAMOTIDINE 2019- Yes Take by Uni vers 20 MG ORAL 0-06 mouth ity of TAB 14:29: daily. [address] Branch FENOFIBRATE 2019- Yes 145mg Take 145 U nivers 160 MG ORAL 0-06 mg by ity of TAB 14:29: mouth at [place] [address] bedtime. Medical Branch simvastatin 2020- Yes 40mg Take 40 mg Univers 20 mg 0-06 by mouth ity of tablet 14:29: at [place] [address] bedtime. Medical Branch hydroCHLORO 2020- Yes 25mg Take 25 mg Univers thiazide 25 0-06 by mouth ity of mg tablet 14:29: daily. [place] 04 Medical Branch lisinopril 2019-1 Yes 20mg Take 20 mg U nivers 20 mg 0-06 by mouth ity of tablet 14:29: daily. [place] 04 Medical Branch metformin 2019-1 Yes 500mg Take 500 Uni vers HCl 0-06 mg by ity of (METFORMIN 14:29: [place] 2 [place] 04 (two) [facility] times Branch daily with meals. ALLOPURINOL 2020-0 [...] 9-04 mg by ity of 18:10: mouth [place] [address] daily. Medical Branch FAMOTIDINE 2020-0 Yes Take by Uni vers 20 MG ORAL 8-22 mouth ity of TAB 23:55: daily. [place] [address] Medical Branch FENOFIBRATE 2020-0 Yes 145mg Take 145 U nivers 160 MG ORAL 8-22 mg by ity of TAB 23:55: mouth at [place] [address] bedtime. Medical Branch ALLOPURINOL 2020-0 Yes 100mg Take 100 U nivers ORAL 8-22 mg by ity of 23:55: mouth [place] [address] daily. Medical Branch simvastatin 2020-0 Yes 40mg Take 40 mg Univers 20 mg 8-22 by mouth ity of tablet 23:55: at [place] [address] bedtime. Medical Branch hydroCHLORO 2020-0 Yes 25mg Take 25 mg Univers thiazide 25 8-22 by mouth ity of mg tablet 23:55: daily. [place] [address] Medical Branch lisinopril 2020-0 Yes 20mg Take 20 mg U nivers 20 mg 8-22 by mouth ity of tablet 23:55: daily. [place] [address] Medical Branch metformin 2020-0 Yes 500mg Take 500 Uni vers HCl 8-22 mg by ity of (METFORMIN 23:55: [place] 2 [place]) (two) Medical times Branch daily with meals. FAMOTIDINE 2019-0 Yes Take by Uni vers 20 MG ORAL 8-22 mouth ity of TAB 23:55: daily. [place] [address] Medical Branch FENOFIBRATE 2020-0 Yes 145mg Take 145 U nivers 160 MG ORAL 8-22 mg by ity of TAB 23:55: mouth at [place] [address] bedtime. Medical Branch ALLOPURINOL 2020-0 Yes 100mg Take 100 U nivers ORAL 8-22 mg by ity of 23:55: mouth [place] [address] daily. Medical Branch simvastatin 2020-0 Yes 40mg Take 40 mg Univers 20 mg 8-22 by mouth ity of tablet 23:55: at [place] [address] bedtime. Medical Branch hydroCHLORO 2020-0 Yes 25mg Take 25 mg Univers thiazide 25 8-22 by mouth ity of mg tablet 23:55: daily. [place] [address] Medical Branch lisinopril 2020-0 Yes 20mg Take 20 mg U nivers 20 mg 8-22 by mouth ity of tablet 23:55: daily. [place] [address] Medical Branch metformin 2020-0 Yes 500mg Take 500 Uni vers HCl 8-22 mg by ity of (METFORMIN 23:55: mouth 2 [place] 33 (two) Medical times Branch daily with meals. FAMOTIDINE 2020-0 Yes Take by Uni vers 20 MG ORAL 8-22 mouth ity of TAB 23:55: daily. [place] [address] Medical Branch FENOFIBRATE 2020-0 Yes 145mg Take 145 U nivers 160 MG ORAL 8-22 mg by ity of TAB 23:55: mouth at [place] [address] bedtime. Medical Branch ALLOPURINOL 2020-0 Yes 100mg Take 100 U nivers ORAL 8-22 mg by ity of 23:55: mouth [place] [address] daily. Medical Branch simvastatin 2020-0 Yes 40mg Take 40 mg Univers 20 mg 8-22 by mouth ity of tablet 23:55: at [place] [address] bedtime. Medical Branch hydroCHLORO 2020-0 Yes 25mg Take 25 mg Univers thiazide 25 8-22 by mouth ity of mg tablet 23:55: daily. [place] [address] Medical Branch lisinopril 2020-0 Yes 20mg Take 20 mg U nivers 20 mg 8-22 by mouth ity of tablet 23:55: daily. [place] [address] Medical Branch metformin 2020-0 Yes 500mg Take 500 Uni vers HCl 8-22 mg by ity of (METFORMIN 23:55: mouth 2 [place]) (two) Medical times Branch daily with meals. FAMOTIDINE 2020-0 Yes Take by Uni vers 20 MG ORAL 8-22 mouth ity of TAB 23:55: daily. [place] [address] Medical Branch FENOFIBRATE 2020-0 Yes 145mg Take 145 U nivers 160 MG ORAL 8-22 mg by ity of TAB 23:55: mouth at [place] [address] bedtime. Medical Branch ALLOPURINOL 2020-0 Yes 100mg Take 100 U nivers ORAL 8-22 mg by ity of 23:55: mouth [place] [address] daily. Medical Branch simvastatin 2020-0 Yes 40mg Take 40 mg Univers 20 mg 8-22 by mouth ity of tablet 23:55: at [place] [address] bedtime. Medical Branch hydroCHLORO 2020-0 Yes 25mg Take 25 mg Univers thiazide 25 8-22 by mouth ity of mg tablet 23:55: daily. [place] [address] Medical Branch lisinopril 2020-0 Yes 20mg Take 20 mg U nivers 20 mg 8-22 by mouth ity of tablet 23:55: daily. [place] [address] Medical Branch metformin 2020-0 Yes 500mg Take 500 Uni vers HCl 8-22 mg by ity of (METFORMIN 23:55: mouth 2 [place] 33 (two) Medical times Branch daily with meals. FAMOTIDINE 2020-0 Yes Take by Uni vers 20 MG ORAL 8-22 mouth ity of TAB 23:55: daily. [place] [address] Medical Branch FENOFIBRATE 2020-0 Yes 145mg Take 145 U nivers 160 MG ORAL 8-22 mg by ity of TAB 23:55: mouth at [place] [address] bedtime. Medical Branch FAMOTIDINE 2020-0 Yes Take by Uni vers 20 MG ORAL 8-22 mouth ity of TAB 23:55: daily. [place] [address] Medical Branch FENOFIBRATE 2020-0 Yes 145mg Take 145 U nivers 160 MG ORAL 8-22 mg by ity of TAB 23:55: mouth at [place] [address] bedtime. Medical Branch ALLOPURINOL 2020-0 Yes 100mg Take 100 U nivers ORAL 8-22 mg by ity of 23:55: mouth [place] [address] daily. Medical Branch simvastatin 2020-0 Yes 40mg Take 40 mg Univers 20 mg 8-22 by mouth ity of tablet 23:55: at [place] [address] bedtime. Medical Branch hydroCHLORO 2020-0 Yes 25mg Take 25 mg Univers thiazide 25 8-22 by mouth ity of mg tablet 23:55: daily. [place] [address] Medical Branch lisinopril 2020-0 Yes 20mg Take 20 mg U nivers 20 mg 8-22 by mouth ity of tablet 23:55: daily. [place] [address] Medical Branch metformin 2020-0 Yes 500mg Take 500 Uni vers HCl 8-22 mg by ity of (METFORMIN 23:55: mouth 2 [place]) (two) Medical times Branch daily with meals. FAMOTIDINE 2020-0 Yes Take by Uni vers 20 MG ORAL 8-22 mouth ity of TAB 23:55: daily. [place] [address] Medical Branch FENOFIBRATE 2020-0 Yes 145mg Take 145 U nivers 160 MG ORAL 8-22 mg by ity of TAB 23:55: mouth at [place] [address] bedtime. Medical Branch simvastatin 2020-0 Yes 40mg Take 40 mg Univers 20 mg 8-22 by mouth ity of tablet 23:55: at [place] [address] bedtime. Medical Branch hydroCHLORO 2020-0 Yes 25mg Take 25 mg Univers thiazide 25 8-22 by mouth ity of mg tablet 23:55: daily. [address] lisinopril 2020-0 Yes 20mg Take 20 mg U nivers 20 mg 8-22 by mouth ity of tablet 23:55: daily. [address] Branch metformin 2020-0 Yes 500mg Take 500 Uni vers HCl 8-22 mg by ity of (METFORMIN 23:55: mouth [place]) (two) Medical times [place] daily with meals. ALLOPURINOL 2020-0 Yes 100mg Take 100 U nivers ORAL 8-22 mg by ity of 23:55: mouth [place] [address] daily. Medical Branch simvastatin 2020-0 Yes 40mg Take 40 mg Univers 20 mg 8-22 by mouth ity of tablet 23:55: at [place] [address] bedtime. Medical Branch FAMOTIDINE 2020-0 Yes Take by Uni vers 20 MG ORAL 8-22 mouth ity of TAB 23:55: daily. [address] Branch FENOFIBRATE 2020-0 Yes 145mg Take 145 U nivers 160 MG ORAL 8-22 mg by ity of TAB 23:55: mouth at [place] [address] bedtime. Medical Branch simvastatin 2020-0 Yes 40mg Take 40 mg Univers 20 mg 8-22 by mouth ity of tablet 23:55: at [place] [address] bedtime. Medical Branch hydroCHLORO 2020-0 Yes 25mg Take 25 mg Univers thiazide 25 8-22 by mouth ity of mg tablet 23:55: daily. [address] lisinopril 2020-0 Yes 20mg Take 20 mg U nivers 20 mg 8-22 by mouth ity of tablet 23:55: daily. [address] metformin 2020-0 Yes 500mg Take 500 Uni vers HCl 8-22 mg by ity of (METFORMIN 23:55: mouth [place] (two) Medical times [place] daily with meals. hydroCHLORO 2020-0 Yes 25mg Take 25 mg Univers thiazide 25 8-22 by mouth ity of mg tablet 23:55: daily. [address] lisinopril 2020-0 Yes 20mg Take 20 mg U nivers 20 mg 8-22 by mouth ity of tablet 23:55: daily. [address] FAMOTIDINE 2020-0 Yes Take by Uni vers 20 MG ORAL 8-22 mouth ity of TAB 23:55: daily. [address] metformin 2020-0 Yes 500mg Take 500 Uni vers HCl 8-22 mg by ity of (METFORMIN 23:55: mouth [place]) (two) Medical times [place] daily with meals. FENOFIBRATE 2020-0 Yes 145mg Take 145 U nivers 160 MG ORAL 8-22 mg by ity of TAB 23:55: mouth at [place] [address] bedtime. Medical Branch simvastatin 2020-0 Yes 40mg Take 40 mg Univers 20 mg 8-22 by mouth ity of tablet 23:55: at [place] [address] bedtime. Medical Branch hydroCHLORO 2020-0 Yes 25mg Take 25 mg Univers thiazide 25 8-22 by mouth ity of mg tablet 23:55: daily. [address] lisinopril 2020-0 Yes 20mg Take 20 mg U nivers 20 mg 8-22 by mouth ity of tablet 23:55: daily. [address] metformin 2020-0 Yes 500mg Take 500 Uni vers HCl 8-22 mg by ity of (METFORMIN 23:55: mouth [place]) (two) Medical times [place] daily with meals. FAMOTIDINE 2020-0 Yes Take by Uni vers 20 MG ORAL 8-22 mouth ity of TAB 23:55: daily. [address] FENOFIBRATE 2020-0 Yes 145mg Take 145 U nivers 160 MG ORAL 8-22 mg by ity of TAB 23:55: mouth at [place] [address] bedtime. Medical Branch simvastatin 2020-0 Yes 40mg Take 40 mg Univers 20 mg 8-22 by mouth ity of tablet 23:55: at [place] [address] bedtime. Medical Branch hydroCHLORO 2020-0 Yes 25mg Take 25 mg Univers thiazide 25 8-22 by mouth ity of mg tablet 23:55: daily. [address] lisinopril 2020-0 Yes 20mg Take 20 mg U nivers 20 mg 8-22 by mouth ity of tablet 23:55: daily. [address] metformin 2020-0 Yes 500mg Take 500 Uni vers HCl 8-22 mg by ity of (METFORMIN 23:55: [place] (two) Medical times [place] daily with meals. amoxicillin 2020-0 2020- No [id number] 1{tbl} Take 1 Univers -clavulanat 8-22 09-06 tablet by it y of e 875-125 00:00: 04:59 mouth [place] mg per 00 :00 every 12 Medical tablet (twelve) Branch hours for 14 days. amoxicillin 2020-0 2020- No [id number] 1{tbl} Take 1 Univers -clavulanat 8-22 09-06 tablet by it y of e 875-125 00:00: 04:59 mouth [place] mg per 00 :00 every 12 Medical tablet (twelve) Branch hours for 14 days. amoxicillin 2020-0 2020- No [id number] 1{tbl} Take 1 Univers -clavulanat 8-22 09-06 tablet by it y of e 875-125 00:00: 04:59 mouth [place] mg per 00 :00 every 12 Medical tablet (twelve) Branch hours for 14 days. amoxicillin 2020-0 2020- No [id number] 1{tbl} Take 1 Univers -clavulanat 8-22 09-06 tablet by it y of e 875-125 00:00: 04:59 mouth [place] mg per 00 :00 every 12 Medical tablet (twelve) Branch hours for 14 days. amoxicillin 2020-0 2020- No [id number] 1{tbl} Take 1 Univers -clavulanat 8-22 09-06 tablet by it y of e 875-125 00:00: 04:59 mouth [place] mg per 00 :00 every 12 Medical tablet (twelve) Branch hours for 14 days. amoxicillin 2020-0 2020- No [id number] 1{tbl} Take 1 Univers -clavulanat 8-22 09-06 tablet by it y of e 875-125 00:00: 04:59 mouth [place] mg per 00 :00 every 12 Medical tablet (twelve) Branch hours for 14 days. amoxicillin 2020-0 2020- No [id number] 1{tbl} Take 1 Univers -clavulanat 8-22 09-06 tablet by it y of e 875-125 00:00: 04:59 mouth [place] mg per 00 :00 every 12 Medical tablet (twelve) Branch hours for 14 days. amoxicillin 2020-0 2020- No [id number] 1{tbl} Take 1 Univers -clavulanat 8-22 09-06 tablet by it y of e 875-125 00:00: 04:59 mouth [place] mg per 00 :00 every 12 Medical tablet (twelve) Branch hours for 14 days. amoxicillin 2020-0 2020- No [id number] 1{tbl} Take 1 Univers -clavulanat 8-22 09-06 tablet by it y of e 875-125 00:00: 04:59 mouth [place] mg per 00 :00 every 12 Medical tablet (twelve) Branch hours for 14 days. amoxicillin 2020-0 Yes 1{tbl} 1 tablet, Univers -clavulanat 8-20 Oral, ity of e 18:15: Q12H, [place] (AUGMENTIN) 00 First dose Me dical 875-125 mg on Mon per tablet 10/31/19 at 1 tablet 1315, Until Discontinu ed, Routine
Reason for Anti-Infec tive: Documented Infection< br>Documen mary kay Infection Site: Other
O ther site: lung
Du ration of Therapy: 7 days lisinopriL 2020-0 Yes 20mg 20 mg, Unive rs (PRINIVIL,Z 8-20 Oral, ity of ESTRIL) 14:00: DAILY, [place] tablet 20 00 First dose Medi heri mg on Mon Branch 10/31/19 at 0900, Until Discontinu ed, Routine simvastatin 2020-0 Yes 20mg 20 mg, Univ ers (ZOCOR) 8-20 Oral, QHS, ity of tablet 20 02:00: First dose [place] mg 00 on Mon Medical 10/30/19 at Branch 2100, Until Discontinu ed, Routine Polyethylen 2020-0 Yes 17g 17 g, Unive rs e Glycol 8-20 Oral, BID, ity o f 3350 01:00: First dose [place] (MIRALAX) 00 on Mon Medical powder 17 [...] 8-19 Oral, ity of (ESIDRIX) 16:15: DAILY, [place] capsule 25 00 First dose Med ical mg on Mon Branch 10/30/19 at 1115, Until Discontinu ed, Routine allopurinoL 2020-0 Yes 100mg 100 mg, Un noah (ZYLOPRIM) 10-29 Oral, ity of tablet 100 16:15: DAILY, [place] mg 00 First dose Medical on Mon10/30/19 at 1115, Until Discontinu ed, Routine acetaminoph [...] 56 Starting Medi heri tablet 1 Mon [place] tablet 10/30/19 at 1052, Until Discontinu ed, Routine, Pain (scale 7-10) KCL 2019-0 2020- No 30meq 30 mEq, IV Unive rs (POTASSIUM 10-29 Piggyback, it y of CHLORIDE) 08:00: 10:05 ONCE, 1 [place] 30 mEq in 00 :00 dose, Wed Medic al NaCl 0.9% 10/30/19 at Bran ch (NS) 0300, 250 piggyback mL piperacilli 2020-0 2020- No 3.375g 3.375 g, Univers n-tazobacta 10-28 IV ity of m (ZOSYN) 16:45: 18:05 Piggyback, [place] 3.375 g in 00 :17 Q6H ABX, Medic al NaCl 0.9% First dose Bran ch (NS) 100 mL on Tue MINI-BAG 10/29/19 at 1145, Until Discontinu ed, 100 mL
R rafael for Anti-Infec tive: Documented Infection< br>Documen mary kay Infection Site: Respirator y
Durat ion of Therapy: 10 days enoxaparin 2020-0 Yes 40mg 40 mg, Unive rs (LOVENOX) 10-28 Subcutaneo ity of injection 14:00: [place], [place]ILY, [place] 40 mg 00 First dose Medical on [facility] 10/29/19 at 0900, Until Discontinu ed, Routine sennosides 2020-0 Yes 8.6mg 8.6 mg, Uni vers (SENOKOT) 818 Oral, ity of tablet 8.6 14:00: DAILY, [place] mg 00 First dose Medical on [facility] 10/29/19 at 0900, Until Discontinu ed, Routine docusate 2020-0 Yes 100mg 100 mg, Unive rs (COLACE) 10-28 Oral, ity of capsule 100 14:00: DAILY, [place] mg 00 First dose Medical on [facility] 10/29/19 at 0900, Until Discontinu ed, Routine Sliding 2019-0 2020- No Subcutaneo Uni vers Scale 10-28 us, TID ity of Insulin - 13:00: 16:12 MEALS+HS, [place] Aspart 00 :15 First dose Medical (NOVOLOG) + on [facility] Fsbg 10/29/19 at Testing 0800, Until Discontinu ed, Routine FENTanyl 2019-0 2020- No 150ug 150 mcg, Uni vers NEON SIGN MECHANIC (5 10-27 Intravenou ity of mcg/mL NS) 22:00: 15:53 s, 30 mL, [place] 00 :26 CONTINUOUS Medical , Starting Branch [facility] 10/28/19 at 1700, Until Mon10/30/19 at 1053 ondansetron 2019-0 Yes 4mg 4 mg, Slow Univers (ZOFRAN 10-27 IV Push, ity of (PF)) 21:45: Q6HPRN, [place] injection 4 31 [address] Med[address]ri mg [facility] 10/28/19 at 1645, Until Discontinu ed, REA, Nausea and Vomiting (N/V) diphenhydrA 2020-0 Yes 25mg 25 mg, Univ ers MINE 10-27 Oral, ity of (BENADRYL) 21:45: Q4HPRN, [place] tablet 25 [address] l mg [facility] 10/28/19 at 1645, Until Discontinu ed, Routine, Itching naloxone 2020-0 Yes .1mg 0.1 mg, Univer s (NARCAN) 10-27 Slow IV ity of injection 21:45: Push, [place] 0.1 mg 30 SEE-INSTRU Medical CTIONS, [place] Starting 10/28/19 at 1645, Until Discontinu ed, Routine FENTanyl 2019- Yes Slow IV Univer s (SUBLIMAZE) 10-27 Push, ity of 50 mcg/mL 21:45: Routine [place] Load & 30 Medical Rescue dose [place] albuterol 2019- No 2.5mg 2.5 mg, Uni vers (PROVENTIL) 10-27 Inhalation i ty of 2.5 mg /3 21:30: 20:30 , ONCE, 1 [place] mL (0.083 00 :00 dose, Mon Medic al %) 10/28/19 at [place] nebulizer 1630, solution Routine 2.5 mg lactated 2019- No 1000mL at 42 Unive rs ringers IV 10-27 mL/hr, ity of infusion 20:45: 16:12 1,000 mL, [place] 1,000 mL 00 :15 IV Medical Infusion, [place] CONTINUOUS , Starting 10/28/19 at 1545, Until [...] heri 25 mcg 4 doses, Branch Starting Mon10/28/19 at 1530, Until Mon10/28/19 at 1640, Routine, Pain (scale 4-6), PACU bupivacaine 2019-2019- No ONCE INTRA Univers (preserv 10-27 PROCEDURE, ity of free) 19:53: 20:18 Starting [place] (SENSORCAIN 00 :47 Mon Medical E MPF) 0.25 10/28/19 at Br anch % (2.5 1453, mg/mL) Until Mon injection 10/28/19 at 1518, Routine, Intra-op sugammadex 2020-0 2020- No IV Push, Un noah (BRIDION) 10-27 ONCE INTRA ity of injection 19:49: 20:18 PROCEDURE, [place] 00 :[address] [facility] 10/28/19 at 1449, Until [facility] 10/28/19 at 1518, Routine, Intra-op HYDROmorphO 2020-0 2020- No ONCE INTRA Univers ne 10-27 PROCEDURE, ity of (DILAUDID) 19:10: 20:18 [place] injection 00 :47 [facility] Medical 10/28/19 at Branch 1410, Until Discontinu ed, Routine, Intra-op acetaminoph 2020-0 2020- No IV Unive rs en ADULT 10-27 Infusion, ity o f (OFIRMEV) 19:09: 20:18 Administer [place] injection 00 :47 over 15 Medical Minutes, Branch ONCE INTRA PROCEDURE, Starting [facility] 10/28/19 at 1409, Until Discontinu ed, Routine, Intra-op ondansetron 2020-0 2020- No Slow IV Un noah (ZOFRAN 10-27 Push, ONCE ity o f (PF)) 19:09: 20:18 INTRA [place] injection 00 :47 PROCEDURE, Medi heri Starting [facility] 10/28/19 at 1409, Until Discontinu ed, Routine, Intra-op calcium 2020-0 2020- No ONCE INTRA Uni vers chloride 10-27 PROCEDURE, ity of 100 mg/mL 18:41: 20:18 Starting [place] (10 %) 00 :47 [facility] Medical syringe 10/28/19 at Branch 1341, Until Discontinu ed, Routine, Intra-op PHENYLephri 2020-0 2020- No CONTINUOUS Univers ne 1000 10-27 PRN, ity of mcg/10 mL 17:55: 20:18 Starting [place] in 0.9% 00 :47 [facility] Medical NaCl 10/28/19 at Branch syringe 1255, Until Discontinu ed, Routine, Intra-op dexamethaso 2020-0 2020- No IV Push, U nivers ne 10-27 ONCE INTRA ity of (DECADRON 17:15: 20:18 PROCEDURE, [place] PHOSPHATE) 00 :47 Starting Medic al injection [facility] 10/28/19 at 1215, Until Discontinu ed, Routine, Intra-op albuterol 2019-0 2020- No 2.5mg 2.5 mg, Uni vers (PROVENTIL) 10-27 Inhalation i ty of 2.5 mg /3 17:15: 16:20 , ONCE, 1 [place] mL (0.083 00 :00 dose, [facility] Medic al %) 10/28/19 at [place] nebulizer 1215, solution Routine 2.5 mg phenylephri 2019-0 2020- No ONCE INTRA Univers ne 10-27 PROCEDURE, ity of (VAZCULEP) 16:49: 20:18 [place] injection 00 :47 [facility] Medical 10/28/19 at [place] 1149, Until Discontinu ed, Routine, Intra-op electrolyte 2020-0 2020- No CONTINUOUS Univers -A 10-27 PRN, ity of (PLASMALYTE 16:39: 20:18 Starting [place] -A) IV 00 :47 [facility] Medical infusion 10/28/19 at [facility] [place] h 1139, Until Discontinu ed, Routine, Intra-op rocuronium 2019-0 2020- No IV Push, Un noah (ZEMURON) 10-27 ONCE INTRA ity of injection 16:36: 20:18 PROCEDURE, [place] 00 :47 Starting [facility] 10/28/19 at 1136, Until Discontinu ed, Routine, Intra-op propofol IV 2020-0 2020- No Slow IV Un noah infusion 10-27 Push, ONCE ity of 16:36: 20:18 INTRA [place] 00 :47 PROCEDURE, Medical Starting [facility] 10/28/19 at 1136, Until Discontinu ed, Routine, Intra-op lidocaine 2020-0 2020- No Slow IV Univ ers 1% 10-27 Push, ONCE ity of (XYLOCAINE) 16:36: 20:18 INTRA [place] 100 mg/10 00 :47 PROCEDURE, Medi heri mL (1 %) Starting [place] injection [facility] 10/28/19 at 1136, Until Discontinu ed, Routine, Intra-op FENTanyl PF 2020-0 2020- No Slow IV Un noah (SUBLIMAZE 10-27 Push, ONCE it y of (PF)) 16:36: 20:18 INTRA [place] injection 00 :47 PROCEDURE, Medi heri Starting Branch [facility] 10/28/19 at 1136, Until Discontinu ed, Routine, Intra-op midazolam 2019-0 2020- No IV Push, Uni vers (VERSED) 10-27 ONCE INTRA ity of injection 16:10: 20:18 PROCEDURE, [place] 00 :47 Starting [facility] 10/28/19 at 1110, Until Discontinu ed, Routine, Intra-op lactated 2019-0 2020- No CONTINUOUS Un noah ringers IV 10-27 PRN, ity of infusion 16:08: 20:18 [place] 00 :47 [facility] 10/28/19 at Branch 1108, Until Discontinu ed, Routine, Intra-op piperacilli 2019-0 2020- No 3.375g 3.375 g, Univers n-tazobacta 10-27 IV ity of m (ZOSYN) 15:15: 19:48 Piggyback, [place] 3.375 g in 00 :18 Q6H ABX, Medic al NaCl 0.9% First dose Bran ch (NS) 100 mL (after MINI-BAG last modificati on) on [facility] 10/28/19 at 1015, Until Discontinu ed, 100 mL
Reas on for Anti-Infec tive: Documented Infection< br>Documen mary kay Infection Site: Respirator y
Durat ion of Therapy: 7 days amLODIPine 2019- 2020- No 5mg 5 mg, Unive rs (NORVASC) 10-26 Oral, ity of tablet 5 mg 14:00: 19:48 DAILY, [place] 00 :18 First dose Medical on [facility] 10/27/19 at 0900, Until Discontinu ed, Routine piperacilli 2019-0 2020- No 2.25g 2.25 g, IV Univers n-tazobacta 10-26 Piggyback, i ty of m (ZOSYN) 03:15: 11:22 Q6H ABX, [place] 2.25 g in 00 :43 First dose Medi heri NaCl 0.9% (after Branch (NS) 100 mL last MINI-BAG modificati on) on [facility] 10/26/19 at 2215, Until Discontinu ed, 100 mL
Reas on for Anti-Infec tive: Documented Infection< br>Documen mary kay Infection Site: Respirator y
Durat ion of Therapy: 7 days NaCl 0.9% 2020-0 2020- No 1000mL at 50 Univ ers (NS) IV 10-25 08-17 mL/hr, IV ity of infusion 17:00: 19:48 Infusion, [place] 1,000 mL 00 :18 CONTINUOUS Medic al , Starting Branch 10/26/19 at 1200, Until 10/28/19 at 1448, Routine piperacilli 2019- 2020- No 2.25g 2.25 g, IV Univers n-tazobacta 10-25 08-16 Piggyback, i ty of m (ZOSYN) 15:15: 02:29 Q6H ABX, [place] 2.25 g/50 00 :04 First dose Medi heri mL RTU (after Branch last modificati on) on 10/26/19 at 1015, Until Discontinu ed, 50 mL
Reas on for Anti-Infec tive: Documented Infection< br>Documen mary kay Infection Site: Respirator y
Durat ion of Therapy: 7 days ipratropium 2019- 2020- No 3mL 3 mL, [facility] ers -albuterol 10-25 Inhalation it y of (DUONEB) 00:00: 23:06 , ONCE [place] 0.5 mg-3 00 :00 NOW, 1 Medical mg(2.5 mg dose, Mon Branc h base)/3 mL 10/25/19 at nebulizer 1900, solution 3 Routine mL colchicine 2019- 2020- No .6mg 0.6 mg, Uni vers (COLCRYS) 10-24 Oral, ity of tablet 0.6 23:00: 15:38 DAILY, [place] mg 00 :26 First dose Medical on Fri Branch 10/25/19 at 1800, Until Discontinu ed, Routine sodium 2020-0 Yes 650mg 650 mg, Univers bicarbonate 10-24 Oral, QID, it y of (ANTACID 17:45: First dose [place] (SODIUM 00 on Mon Medical BICARBONATE 10/25/19 at Br anch )) tablet 1245, 650 mg Until Discontinu ed, Routine NaCl 0.9% 2020-0 2020- No 1000mL at 100 Uni vers (NS) IV 10-24 mL/hr, IV ity of infusion 17:15: 16:58 Infusion, [place] 1,000 mL 00 :04 CONTINUOUS Medic al , Starting Branch Mon10/25/19 at 1215, Until Mon10/26/19 at 1158, Routine NaCl 0.9% 2020- No 100mL at 75 Unive rs (NS) IV 10-24- mL/hr, IV ity of infusion 16:00: 17:09 Infusion, [place] 100 mL 00 :46 CONTINUOUS Medical , Starting Branch Mon10/25/19 at 1100, Until Mon10/25/19 at 1209, Routine aspirin 2019-0 Yes 325mg 325 mg, Univer s tablet 325 10-24 Oral, ity of mg 15:00: DAILY, [place] 00 First dose Medical (after Branch last [...] :00 NOW, 1 Medical mg(2.5 mg dose, [facility] h base)/3 mL 10/24/19 at nebulizer 1530, solution 3 Routine mL aspirin 2019- 2020- No 325mg 325 mg, Unive rs tablet 325 10-23 Oral, ity of mg 20:30: 19:55 ONCE, 1 [place] 00 :00 dose, [facility] Medical 10/24/19 at Branch 1530, Routine ketorolac 2019- 2020- No 30mg 30 mg, Unive rs (TORADOL) 10-23 Slow IV ity of injection 14:15: 13:15 Push, [place] 30 mg 00 :00 ONCE, 1 Medical dose, [facility] Branch 10/24/19 at 0915, Routine
amphibian crewmember approving Restricted medication : [facility] metoprolol 2020- No 25mg 25 mg, [facility] ers tartrate 10-23 Oral, BID, ity of (LOPRESSOR) 01:00: 12:28 First dose [place] tablet 25 00 :00 on Mon Medical mg 10/23/19 at Branch 2000, Until Discontinu ed, Routine ketorolac 2020- No 30mg 30 [facility], [facility] 10-22 Slow IV ity of injection 22:45: 22:20 Push, [place] 30 mg 00 :00 ONCE, 1 Medical dose, [facility] 10/23/19 at 1745, Routine
amphibian crewmember approving Restricted medication : [facility] diphenhydrA 2020- No 50mg 50 mg, [facility] vers MINE 10-22 Slow IV ity of (BENADRYL) 21:44: 19:48 Push, [place] injection 19 :18 Q6HPRN, Medical 50 mg Starting Branch Mon10/23/19 at 1644, Until [facility] 10/28/19 at 1448, Routine, Itching, Rash fenofibrate 2020- No 134mg 134 mg, U nivers micronized 10-22 Oral, ity of (LOFIBRA) 14:00: 19:48 DAILY, [place] capsule 134 00 :18 First dose Me dical mg on Mon [place] 10/23/19 at 0900, Until Discontinu ed famotidine 2020- No 20mg 20 mg, [facility] ers (PEPCID AC) 10-22 Oral, ity of tablet 20 14:00: 19:48 DAILY, [place] mg 00 :18 First dose Medical on [facility] 10/23/19 at 0900, Until Discontinu ed, Routine allopurinoL 2020- No 100mg 100 mg, U nivers (ZYLOPRIM) 10-22 Oral, ity of tablet 100 14:00: 19:48 DAILY, [place] mg 00 :18 First dose Medical on [facility] 10/23/19 at 0900, Until Discontinu ed lisinopril 2020- No 20mg 20 mg, [facility] ers (PRINIVIL,Z 10-22 Oral, ity of ESTRIL) 14:00: 12:27 DAILY, [place] tablet 20 00 :10 First dose Medi heri mg on [facility] 10/23/19 at 0900, Until Discontinu ed, Routine hydroCHLORO 2020-0 2020- No 25mg 25 mg, Uni vers thiazide 10-2214 Oral, ity of (ESIDRIX) 14:00: 12:27 DAILY, [place] tablet 25 00 :10 First dose Medi heri mg on [facility] 10/23/19 at 0900, Until Discontinu ed, Routine morpHINE 2019-0 2020- No 4mg 4 mg, Slow Un noah injection 4 10-22 IV Push, ity of mg 08:47: 19:48 Q6HPRN, [place] 26 :18 Starting Medical [facility] 10/23/19 at 0347, Until Mon10/28/19 at 1448, Routine, Pain (scale 7-10) simvastatin 2020-0 2020- No 40mg 40 mg, Uni vers (ZOCOR) 10-22 Oral, QHS, ity o f tablet 40 02:00: 19:48 First dose [place] mg 00 :18 on [facility] 10/22/19 at Branch 2100, Until Discontinu ed, Routine heparin 2019-0 2020- No 5000U 5,000 Univers (porcine) 10-22 Units, ity of injection 01:00: 19:48 Subcutaneo [place] 5,000 Units 00 :18 us, Q12H, Med ical First dose Branch on [facility] 10/22/19 at 2000, Until Discontinu ed, Routine benzonatate 2019-0 2020- No 100mg 100 mg, U nivers (TESSALON 10-21 Oral, ity of PERLES) 22:29: 19:48 Q6HPRN, [place] capsule 100 53 :18 Starting Medi heri mg [facility] 10/22/19 at 1729, Until Mon10/28/19 at 1448, Routine, Cough ondansetron 2019-0 2020- No 4mg 4 mg, Slow Univers (ZOFRAN 10-21 IV Push, ity of (PF)) 22:18: 19:48 Q6HPRN, [place] injection 4 02 :18 Starting Medi heri mg [facility] 10/22/19 at 1718, Until Mon10/28/19 at 1448, Routine, Nausea and Vomiting (N/V) metFORMIN 2019-0 2020- No 500mg 500 mg, Uni vers (GLUCOPHAGE 10-21 Oral, BID it y of ) tablet 22:00: 17:39 MEALS, [place] 500 mg 00 :55 First dose Medical on [facility] 10/22/19 at 1700, Until Discontinu ed tc 2020- No 6.9mCi 6.9 Univers 99m-albumin 10-21 millicurie i ty of (DRAXIMAGE 18:00: 18:00 , [place] MAA) 00 :00 Intravenou Medical injection s, ONCE, 1 Bran ch 6.9 dose, [facility] 10/22/19 at 1315, Routine FLAGYL 500 2019- 2020- No None Univer s MG ORAL TAB 10-21 Entered ity of 17:04: 00:00 [place] 10 :00 [facility] Branch VYTORIN 2019-0 2020- No None Univers 12-20 Entered ity of MG ORAL TAB 17:03: 00:00 [place] 38 :00 [facility] Branch temazepam 2020- No 15mg 15 mg, Unive rs (RESTORIL) 10-21 Oral, ity of capsule 15 04:13: 19:48 QHSPRN, [place] mg 19 :18 Starting [facility] 10/21/19 at 2313, Until [facility] 10/28/19 at 1448, Routine, Insomnia ondansetron 2019- 2020- No 4mg 4 mg, Slow Univers (ZOFRAN 10-20 IV Push, ity of (PF)) 23:45: 22:43 ONCE, 1 [place] injection 4 00 :00 dose, [facility] Med ical mg 10/21/19 at Branch 1845, REA morpHINE 2019- 2020- No 6mg 6 mg, Slow Un noah injection 6 10-20 IV Push, ity of mg 23:45: 22:43 ONCE, 1 [place] 00 :00 dose, [facility] Medical 10/21/19 at Branch 1845, STAT morpHINE 2019-0 2020- No 4mg 4 mg, Slow [place] no[place] injection 4 10-20 IV Push, ity of mg 23:39: 23:38 Q4HPRN, [place] 42 :42 Starting Medical Mon Branch 10/21/19 at 1839, Until 10/22/19 at 1838, Routine, Pain (scale 7-10) HYDROcodone 2019- 2020- No 1{tbl} 1 tablet, Univers -acetaminop 10-20 Oral, ity of hen (NORCO 23:39: 23:38 Q6HPRN, [place] 5) 5-325 mg 36 :36 Starting Medi heri tablet 1 Mon [place] tablet 10/21/19 at 1839, Until 10/23/19 at 1838, Routine, Pain (scale 4-6) acetaminoph 2019-2019- No 650mg 650 mg, U nivers en 10-20 Oral, ity of (TYLENOL) 23:39: 19:48 Q6HPRN, [place] tablet 650 35 :18 Starting Medic al mg [facility] 10/21/19 at 1839, Until Mon10/28/19 at 1448, Routine, Pain (scale 1-3) NaCl 0.9% 2019- No 1000mL at 999 Uni vers (NS) bolus 10-20 mL/hr, ity of infusion 19:45: 18:52 1,000 mL, [place] 1,000 mL 00 :00 IV Medical Infusion, [place] ONCE, 1 dose, [facility] 10/21/19 at 1445, STAT cyclobenzap 2019- No 10mg 10 mg, Uni vers rine 10-20 Oral, ity of (FLEXERIL) 19:45: 18:52 ONCE, 1 [place] tablet 10 00 :00 dose, Mon Medic al mg 10/21/19 at [place] 1445, Routine morpHINE 2019- No 4mg 4 mg, Slow Un noah injection 4 10-2010 IV Push, ity of mg 19:45: 18:52 ONCE, 1 [place] 00 :00 dose, [facility] Medical 10/21/19 at Branch 1445, STAT ondansetron 2019-2019- No 4mg 4 mg, Slow Univers (ZOFRAN 10-20 IV Push, ity of (PF)) 19:45: 18:52 [...] mouth 3 ity of tablet 00:00: (three) [place] 00 times Medical daily as Branch needed for Muscle Spasms. cyclobenzap 2020-0 Yes 10mg Take 10 mg Univers rine 10 mg 6-17 by mouth 3 ity of tablet 00:00: (three) [place] 00 times Medical daily as Branch needed for Muscle Spasms. cyclobenzap 2020-0 Yes 10mg Take 10 mg Univers rine 10 mg 6-17 by mouth 3 ity of tablet 00:00: (three) [place] 00 times Medical daily as Branch needed for Muscle Spasms. cyclobenzap 2020-0 Yes 10mg Take 10 mg Univers rine 10 mg 6-17 by mouth 3 ity of tablet 00:00: (three) [place] 00 times Medical daily as Branch needed for Muscle Spasms. cyclobenzap 2020-0 Yes 10mg Take 10 mg Univers rine 10 mg 6-17 by mouth 3 ity of tablet 00:00: (three) [place] 00 times Medical daily as Branch needed for Muscle Spasms. cyclobenzap 2020-0 Yes 10mg Take 10 mg Univers rine 10 mg 6-17 by mouth 3 ity of tablet 00:00: (three) [place] 00 times Medical daily as Branch needed for Muscle Spasms. cyclobenzap 2020-0 Yes 10mg Take 10 mg Univers rine 10 mg 6-17 by mouth 3 ity of tablet 00:00: (three) [place] 00 times Medical daily as Branch needed for Muscle Spasms. cyclobenzap 2020-0 Yes 10mg Take 10 mg Univers rine 10 mg 6-17 by mouth 3 ity of tablet 00:00: (three) [place] 00 times Medical daily as Branch needed [...] al as needed Branch for pain. CLINDAMYCIN 2020- No 1 tab Q 6h Univers HCL 300 MG 5-16 08- ity of ORAL CAP 00:00: 00:00 [place] 00 :00 Medical Branch DARVOCET-N 2019- No Take one Un noah 50 50-325 8 08 pill every ity of MG ORAL TAB 00:00: 00:00 4 hours as [place] 00 :00 needed for Medical pain Branch Immunizations Ordered Filled Immunization Date Status Comments [facility] e Immunization Name Name Influenza Virus 2019-12-17 Completed Universit y of Vaccine [place] .5 mL 00:00:00 [place] Medical IM 6+ MO Branch Influenza Virus 2019-12-17 Completed Universit y of Vaccine [place] .5 mL 00:00:00 [place] Medical IM 6+ MO Branch Influenza Virus 2019-12-17 Completed Universit y of Vaccine [place] .5 mL 00:00:00 [place] Medical IM 6+ MO Branch Influenza Virus 2019-12-17 Completed Universit y of Vaccine [place] .5 mL 00:00:00 [place] Medical IM 6+ MO Branch Influenza Virus 2019-12-17 Completed Universit y of Vaccine [place] .5 mL 00:00:00 [place] Medical IM 6+ [place] Branch Influenza Virus 2019-12-17 Completed Universit y of Vaccine [place] .5 mL 00:00:00 [place] Medical IM 6+ MO Branch Influenza Virus 2019-12-17 Completed Universit y of Vaccine [place] .5 mL 00:00:00 [place] Medical IM 6+ MO Branch Influenza Virus 2019-12-17 Completed Universit y of Vaccine [place] .5 mL 00:00:00 [place] Medical IM 6+ MO Branch Influenza Virus 2019-12-17 Completed Universit y of Vaccine [place] .5 mL 00:00:00 [place] Medical IM 6+ MO Branch Influenza Virus [...] Universit y of Vaccine Quad IM 00:00:00 [place] Med ical Multi-dose 6+ MO Branch TDAP 2018-07-11 Completed University of 00:00:00 [facility] TDAP 2018-07-11 Completed University of 00:00:00 [place] [facility] Branch TDAP 2018-07-11 Completed University of 00:00:00 [place] [facility] TDAP 2018-07-11 Completed University of 00:00:00 [place] [facility] TDAP 2018-07-11 Completed University of 00:00:00 [place] [facility] TDAP 2018-07-11 Completed University of 00:00:00 [place] [facility] TDAP 2018-07-11 Completed University of 00:00:00 [place] [facility] TDAP 2018-07-11 Completed University of 00:00:00 [place] [facility] TDAP 2018-07-11 Completed University of 00:00:00 [place] [facility] TDAP 2018-07-11 Completed University of 00:00:00 [facility] Branch TDAP 2018-07-11 Completed University of 00:00:00 [facility] Branch TDAP 2018-07-11 Completed University of 00:00:00 [facility] Branch TDAP 2018-07-11 Completed University of 00:00:00 [facility] Branch TDAP 2018-07-11 Completed University of 00:00:00 [facility] Branch TDAP 2018-07-11 Completed University of 00:00:00 [facility] Branch TDAP 2018-07-11 Completed University of 00:00:00 [facility] Branch TDAP 2018-07-11 Completed University of 00:00:00 [facility] Branch TDAP 2018-07-11 Completed University of 00:00:00 [facility] Branch TDAP 2018-07-11 Completed University of 00:00:00 [facility] Influenza Virus 2018-03-02 Completed Universit y of Vaccine 00:00:00 [facility] Influenza Virus 2018-03-02 Completed Universit y of Vaccine 00:00:00 [facility] Influenza Virus 2018-03-02 Completed [facility] Vaccine 00:00:00 [facility] Influenza Virus 2018-03-02 Completed [facility] Vaccine 00:00:00 [facility] Influenza Virus 2018-03-02 Completed [facility] Vaccine 00:00:00 [facility] Influenza Virus 2018-03-02 Completed [facility] of Vaccine 00:00:00 [facility] Influenza Virus 2018-03-02 Completed [facility] Vaccine 00:00:00 [facility] Influenza Virus 2018-03-02 Completed [facility] of Vaccine 00:00:00 [facility] Influenza Virus 2018-03-02 Completed [facility] of Vaccine 00:00:00 [facility] Influenza Virus 2018-03-02 Completed [facility] of Vaccine 00:00:00 [facility] Influenza Virus 2018-03-02 Completed [facility] of Vaccine 00:00:00 [facility] Influenza Virus 2018-03-02 Completed [facility] of Vaccine 00:00:00 [facility] Influenza Virus 2018-03-02 Completed [facility] of Vaccine 00:00:00 [facility] Influenza Virus 2018-03-02 Completed [facility] of Vaccine 00:00:00 [facility] Influenza Virus 2018-03-02 Completed [facility] of Vaccine 00:00:00 [facility] Influenza Virus 2018-03-02 Completed [facility] of Vaccine 00:00:00 [facility] Influenza Virus 2018-03-02 Completed [facility] of Vaccine 00:00:00 [facility] Influenza Virus 2018-03-02 Completed [facility] of Vaccine 00:00:00 [facility] Influenza Virus 2018-03-02 Completed [facility] Vaccine 00:00:00 [facility] Influenza Virus 2017-01-05 Completed [facility] of Vaccine (3+ yrs) 00:00:00 [facility] Influenza Virus 2017-01-05 Completed [facility] of Vaccine (3+ yrs) 00:00:00 [facility] Influenza Virus 2017-01-05 Completed [facility] of Vaccine (3+ yrs) 00:00:00 [facility] Influenza Virus 2017-01-05 Completed [facility] of Vaccine (3+ yrs) 00:00:00 [facility] Influenza Virus 2017-01-05 Completed [facility] of Vaccine (3+ yrs) 00:00:00 [facility] Influenza Virus 2017-01-05 Completed [facility] of Vaccine (3+ yrs) 00:00:00 [facility] Influenza Virus 2017-01-05 Completed [facility] of Vaccine (3+ yrs) 00:00:00 [facility] Influenza Virus 2017-01-05 Completed [facility] of Vaccine (3+ yrs) 00:00:00 [facility] Influenza Virus 2017-01-05 Completed [facility] of Vaccine (3+ yrs) 00:00:00 [facility] Influenza Virus 2017-01-05 Completed [facility] of Vaccine (3+ yrs) 00:00:00 [facility] Influenza Virus 2017-01-05 Completed [facility] of Vaccine (3+ yrs) 00:00:00 [facility] Influenza Virus 2017-01-05 Completed [facility] of Vaccine (3+ yrs) 00:00:00 [facility] Influenza Virus 2017-01-05 Completed [facility] of Vaccine (3+ yrs) 00:00:00 [facility] Influenza Virus 2017-01-05 Completed [facility] of Vaccine (3+ yrs) 00:00:00 [facility] Influenza Virus 2017-01-05 Completed [facility] of Vaccine (3+ yrs) 00:00:00 [facility] Influenza Virus 2017-01-05 Completed [facility] of Vaccine (3+ yrs) 00:00:00 [facility] Influenza Virus 2017-01-05 Completed [facility] of Vaccine (3+ yrs) 00:00:00 [facility] Influenza Virus 2017-01-05 Completed [facility] of Vaccine (3+ yrs) 00:00:00 [facility] Influenza Virus 2017-01-05 Completed [facility] of Vaccine (3+ yrs) 00:00:00 [facility] Pneumococcal 2016-05-10 Completed [facility] o f Polysaccharide, 00:00:00 [facility] PPSV23 (PNEUMOVAX) [facility] Pneumococcal 2016-05-10 Completed [facility] o f Polysaccharide, 00:00:00 [facility] PPSV23 (PNEUMOVAX) [facility] Pneumococcal 2016-05-10 Completed [facility] o f Polysaccharide, 00:00:00 [facility] PPSV23 (PNEUMOVAX) [facility] Pneumococcal 2016-05-10 Completed [facility] o f Polysaccharide, 00:00:00 [facility] PPSV23 (PNEUMOVAX) [facility] Pneumococcal 2016-05-10 Completed [facility] Polysaccharide, 00:00:00 [place] [facility] PPSV23 (PNEUMOVAX) [facility] Pneumococcal 2016-05-10 Completed [facility] o f Polysaccharide, 00:00:00 [facility] PPSV23 (PNEUMOVAX) [facility] Pneumococcal 2016-05-10 Completed [facility] o f Polysaccharide, 00:00:00 [facility] PPSV23 (PNEUMOVAX) [facility] Pneumococcal 2016-05-10 Completed [facility] o f Polysaccharide, 00:00:00 [facility] PPSV23 (PNEUMOVAX) [facility] Pneumococcal 2016-05-10 [...] 2015-12-23 Completed [facility] Vaccine 00:00:00 [facility] Influenza Virus 2015-12-23 Completed [facility] Vaccine 00:00:00 [facility] Influenza Virus 2015-12-23 Completed [facility] Vaccine 00:00:00 [facility] Influenza Virus 2015-12-23 Completed [facility] Vaccine 00:00:00 [facility] Influenza Virus 2015-12-23 Completed [facility] Vaccine 00:00:00 [facility] Influenza Virus 2015-12-23 Completed [facility] of Vaccine 00:00:00 [facility] Influenza Virus 2015-12-23 Completed [facility] of Vaccine 00:00:00 [facility] Influenza Virus 2015-12-23 Completed [facility] of Vaccine 00:00:00 [facility] Influenza Virus 2015-12-23 Completed [facility] Vaccine 00:00:00 [facility] Influenza Virus 2015-12-23 Completed [facility] Vaccine 00:00:00 [facility] Influenza Virus 2015-12-23 Completed [facility] Vaccine 00:00:00 [facility] Influenza Virus 2015-12-23 Completed [facility] Vaccine 00:00:00 [facility] Influenza Virus 2015-12-23 Completed [facility] of Vaccine 00:00:00 [facility] Influenza Virus 2015-12-23 Completed [facility] of Vaccine 00:00:00 [facility] Influenza Virus 2015-12-23 Completed [facility] of Vaccine 00:00:00 [facility] Influenza Virus 2015-12-23 Completed [facility] of Vaccine 00:00:00 [facility] Influenza Virus 2015-12-23 Completed [facility] of Vaccine 00:00:00 [facility] Influenza Virus 2015-12-23 Completed [facility] Vaccine 00:00:00 [facility] Influenza Virus 2015-12-23 Completed [facility] Vaccine 00:00:00 [facility] Influenza Virus 2015-02-12 Completed [facility] of Vaccine 00:00:00 [facility] Influenza Virus 2015-02-12 Completed [facility] Vaccine 00:00:00 [facility] Influenza Virus 2015-02-12 Completed [facility] Vaccine 00:00:00 [facility] Influenza Virus 2015-02-12 Completed [facility] Vaccine 00:00:00 [facility] Influenza Virus 2015-02-12 Completed [facility] Vaccine 00:00:00 [facility] Influenza Virus 2015-02-12 Completed [facility] Vaccine 00:00:00 [facility] Influenza Virus 2015-02-12 Completed [facility] Vaccine 00:00:00 [facility] Influenza Virus 2015-02-12 Completed [facility] Vaccine 00:00:00 [facility] Influenza Virus 2015-02-12 Completed [facility] of Vaccine 00:00:00 [facility] Influenza Virus 2015-02-12 Completed [facility] of Vaccine 00:00:00 [facility] Influenza Virus 2015-02-12 Completed [facility] Vaccine 00:00:00 [facility] Influenza Virus 2015-02-12 Completed [facility] Vaccine 00:00:00 [facility] Influenza Virus 2015-02-12 Completed [facility] Vaccine 00:00:00 [facility] Influenza Virus 2015-02-12 Completed [facility] of Vaccine 00:00:00 [facility] Influenza Virus 2015-02-12 Completed [facility] of Vaccine 00:00:00 [facility] Influenza Virus 2015-02-12 Completed [facility] of Vaccine 00:00:00 [facility] Influenza Virus 2015-02-12 Completed [facility] of Vaccine 00:00:00 [facility] Influenza Virus 2015-02-12 Completed [facility] of Vaccine 00:00:00 [facility] Influenza Virus 2015-02-12 Completed [facility] of Vaccine 00:00:00 [facility] Influenza Virus 2014-02-10 Completed [facility] Vaccine 00:00:00 [facility] Influenza Virus 2014-02-10 Completed [facility] of Vaccine 00:00:00 [facility] Influenza Virus 2014-02-10 Completed [facility] of Vaccine 00:00:00 [facility] Influenza Virus 2014-02-10 Completed [facility] of Vaccine 00:00:00 [facility] Influenza Virus 2014-02-10 Completed [facility] of Vaccine 00:00:00 [facility] Influenza Virus 2014-02-10 Completed [facility] of Vaccine 00:00:00 [facility] Influenza Virus 2014-02-10 Completed [facility] of Vaccine 00:00:00 [facility] Influenza Virus 2014-02-10 Completed [facility] of Vaccine 00:00:00 [facility] Influenza Virus 2014-02-10 Completed [facility] of Vaccine 00:00:00 [facility] Influenza Virus 2014-02-10 Completed [facility] of Vaccine 00:00:00 [facility] Influenza Virus 2014-02-10 Completed [facility] of Vaccine 00:00:00 [facility] Influenza Virus 2014-02-10 Completed [facility] Vaccine 00:00:00 [facility] Influenza Virus 2014-02-10 Completed [facility] Vaccine 00:00:00 [facility] Influenza Virus 2014-02-10 Completed [facility] Vaccine 00:00:00 [facility] Influenza Virus 2014-02-10 Completed [facility] of Vaccine 00:00:00 [facility] Influenza Virus 2014-02-10 Completed [facility] of Vaccine 00:00:00 [facility] Influenza Virus 2014-02-10 Completed [facility] of Vaccine 00:00:00 [facility] Influenza Virus 2014-02-10 Completed [facility] of Vaccine 00:00:00 [facility] Influenza Virus 2014-02-10 Completed [facility] of Vaccine 00:00:00 [facility] Influenza Virus 2013-04-04 Completed [facility] of Vaccine 00:00:00 [facility] Influenza Virus 2013-04-04 Completed [facility] Vaccine 00:00:00 [facility] Influenza Virus 2013-04-04 Completed [facility] of Vaccine 00:00:00 [facility] Influenza Virus 2013-04-04 Completed [facility] of Vaccine 00:00:00 [facility] Influenza Virus 2013-04-04 Completed [facility] of Vaccine 00:00:00 [facility] Influenza Virus 2013-04-04 Completed [facility] of Vaccine 00:00:00 [facility] Influenza Virus 2013-04-04 Completed [facility] of Vaccine 00:00:00 [facility] Influenza Virus 2013-04-04 Completed [facility] of Vaccine 00:00:00 [facility] Influenza Virus 2013-04-04 Completed [facility] of Vaccine 00:00:00 [facility] Influenza Virus 2013-04-04 Completed [facility] of Vaccine 00:00:00 [facility] Influenza Virus 2013-04-04 Completed [facility] Vaccine 00:00:00 [facility] Influenza Virus 2013-04-04 Completed [facility] Vaccine 00:00:00 [facility] Influenza Virus 2013-04-04 Completed [facility] Vaccine 00:00:00 [facility] Influenza Virus 2013-04-04 Completed [facility] Vaccine 00:00:00 [facility] Influenza Virus 2013-04-04 Completed [facility] of Vaccine 00:00:00 [facility] Influenza Virus 2013-04-04 Completed [facility] Vaccine 00:00:00 [facility] Influenza Virus 2013-04-04 Completed [facility] Vaccine 00:00:00 [facility] Influenza Virus 2013-04-04 Completed [facility] Vaccine 00:00:00 [facility] Influenza Virus 2013-04-04 Completed [facility] of Vaccine 00:00:00 [facility] Influenza Virus 2012-01-10 Completed [facility] of Vaccine 00:00:00 [facility] Influenza Virus 2012-01-10 Completed [facility] of Vaccine 00:00:00 [facility] Influenza Virus 2012-01-10 Completed [facility] of Vaccine 00:00:00 [facility] Influenza Virus 2012-01-10 Completed [facility] of Vaccine 00:00:00 [facility] Influenza Virus 2012-01-10 Completed [facility] of Vaccine 00:00:00 [facility] Influenza Virus 2012-01-10 Completed [facility] of Vaccine 00:00:00 [facility] Influenza Virus 2012-01-10 Completed [facility] of Vaccine 00:00:00 [facility] Influenza Virus 2012-01-10 Completed [facility] of Vaccine 00:00:00 [facility] Influenza Virus 2012-01-10 Completed [facility] of Vaccine 00:00:00 [facility] Influenza Virus 2012-01-10 Completed [facility] of Vaccine 00:00:00 [facility] Influenza Virus 2012-01-10 Completed [facility] of Vaccine 00:00:00 [facility] Influenza Virus 2012-01-10 Completed [facility] of Vaccine 00:00:00 [facility] Influenza Virus 2012-01-10 Completed [facility] of Vaccine 00:00:00 [facility] Influenza Virus 2012-01-10 Completed [facility] of Vaccine 00:00:00 [facility] Influenza Virus 2012-01-10 Completed [facility] of Vaccine 00:00:00 [facility] Influenza Virus 2012-01-10 Completed [facility] of Vaccine 00:00:00 [facility] Influenza Virus 2012-01-10 Completed [facility] of Vaccine 00:00:00 [facility] Influenza Virus 2012-01-10 Completed [facility] of Vaccine 00:00:00 [facility] Influenza Virus 2012-01-10 Completed [facility] of Vaccine 00:00:00 [facility] Influenza Virus 2010-12-27 Completed [facility] of Vaccine 00:00:00 [facility] Influenza Virus 2010-12-27 Completed [facility] of Vaccine 00:00:00 [facility] Influenza Virus 2010-12-27 Completed [facility] of Vaccine 00:00:00 [facility] Influenza Virus 2010-12-27 Completed [facility] of Vaccine 00:00:00 [facility] Influenza Virus 2010-12-27 Completed [facility] of Vaccine 00:00:00 [facility] Influenza Virus 2010-12-27 Completed [facility] of Vaccine 00:00:00 [facility] Influenza Virus 2010-12-27 Completed [facility] of Vaccine 00:00:00 [facility] Influenza Virus 2010-12-27 Completed [facility] of Vaccine 00:00:00 [facility] Influenza Virus 2010-12-27 Completed [facility] of Vaccine 00:00:00 [facility] Influenza Virus 2010-12-27 Completed [facility] of Vaccine 00:00:00 [facility] Influenza Virus 2010-12-27 Completed [facility] of Vaccine 00:00:00 [facility] Influenza Virus 2010-12-27 Completed [facility] of Vaccine 00:00:00 [facility] Influenza Virus 2010-12-27 Completed [facility] of Vaccine 00:00:00 [facility] Influenza Virus 2010-12-27 Completed [facility] of Vaccine 00:00:00 [facility] Influenza Virus 2010-12-27 Completed [facility] of Vaccine 00:00:00 [facility] Influenza Virus 2010-12-27 Completed [facility] of Vaccine 00:00:00 [facility] Influenza Virus 2010-12-27 Completed [facility] of Vaccine 00:00:00 [facility] Influenza Virus 2010-12-27 Completed [facility] of Vaccine 00:00:00 [facility] Influenza Virus 2010-12-27 Completed [facility] of Vaccine 00:00:00 [facility] Influenza Virus 2009-12-23 Completed [facility] of Vaccine 00:00:00 [facility] Influenza Virus 2009-12-23 Completed [facility] of Vaccine 00:00:00 [facility] Influenza Virus 2009-12-23 Completed [facility] of Vaccine 00:00:00 [facility] Influenza Virus 2009-12-23 Completed [facility] of Vaccine 00:00:00 [facility] Influenza Virus 2009-12-23 Completed [facility] of Vaccine 00:00:00 [facility] Influenza Virus 2009-12-23 Completed [facility] of Vaccine 00:00:00 [facility] Influenza Virus 2009-12-23 Completed [facility] of Vaccine 00:00:00 [facility] Influenza Virus 2009-12-23 Completed [facility] of Vaccine 00:00:00 [facility] Influenza Virus 2009-12-23 Completed [facility] of Vaccine 00:00:00 [facility] Influenza Virus 2009-12-23 Completed [facility] of Vaccine 00:00:00 [facility] Influenza Virus 2009-12-23 Completed [facility] of Vaccine 00:00:00 [facility] Influenza Virus 2009-12-23 Completed [facility] of Vaccine 00:00:00 [facility] Influenza Virus 2009-12-23 Completed [facility] y of Vaccine 00:00:00 [facility] Influenza Virus 2009-12-23 Completed [facility] of Vaccine 00:00:00 [facility] Influenza Virus 2009-12-23 Completed [facility] of Vaccine 00:00:00 [facility] Influenza Virus 2009-12-23 Completed [facility] y of Vaccine 00:00:00 [facility] Influenza Virus 2009-12-23 Completed [facility] y of Vaccine 00:00:00 [facility] Influenza Virus 2009-12-23 Completed [facility] y of Vaccine 00:00:00 [facility] Influenza Virus 2009-12-23 Completed [facility] y of Vaccine 00:00:00 [facility] TDAP 2008-05-05 Completed [facility] of 00:00:00 [facility] TDAP 2008-05-05 Completed [facility] of 00:00:00 [facility] TDAP 2008-05-05 Completed [facility] of 00:00:00 [facility] TDAP 2008-05-05 Completed [facility] of 00:00:00 [facility] TDAP 2008-05-05 Completed University of 00:00:00 [facility] TDAP 2008-05-05 Completed [facility] of 00:00:00 [facility] TDAP 2008-05-05 Completed [facility] of 00:00:00 [facility] TDAP 2008-05-05 Completed [facility] of 00:00:00 [facility] TDAP 2008-05-05 Completed [facility] of 00:00:00 [facility] TDAP 2008-05-05 Completed [facility] of 00:00:00 [facility] TDAP 2008-05-05 Completed University of 00:00:00 [facility] TDAP 2008-05-05 Completed [facility] of 00:00:00 [facility] TDAP 2008-05-05 Completed [facility] of 00:00:00 [facility] TDAP 2008-05-05 Completed [facility] of 00:00:00 [facility] TDAP 2008-05-05 Completed [facility] of 00:00:00 [facility] TDAP 2008-05-05 Completed [facility] of 00:00:00 [facility] TDAP 2008-05-05 Completed [facility] of 00:00:00 [facility] TDAP 2008-05-05 Completed [facility] of 00:00:00 [facility] TDAP 2008-05-05 Completed [facility] of 00:00:00 [facility] Influenza Virus 2007-01-16 Completed [facility] y of Vaccine 00:00:00 [facility] Influenza Virus 2007-01-16 Completed [facility] y of Vaccine 00:00:00 [facility] Influenza Virus 2007-01-16 Completed [facility] y of Vaccine 00:00:00 [facility] Influenza Virus 2007-01-16 Completed [facility] y of Vaccine 00:00:00 [facility] Influenza Virus 2007-01-16 Completed [facility] of Vaccine 00:00:00 [facility] Influenza Virus 2007-01-16 Completed [facility] of Vaccine 00:00:00 [facility] Influenza Virus 2007-01-16 Completed [facility] of Vaccine 00:00:00 [facility] Influenza Virus 2007-01-16 Completed [facility] of Vaccine 00:00:00 [facility] Influenza Virus 2007-01-16 Completed [facility] of Vaccine 00:00:00 [facility] Influenza Virus 2007-01-16 Completed [facility] of Vaccine 00:00:00 [facility] Influenza Virus 2007-01-16 Completed [facility] of Vaccine 00:00:00 [facility] Influenza Virus 2007-01-16 Completed [facility] of Vaccine 00:00:00 [facility] Influenza Virus 2007-01-16 Completed [facility] of Vaccine 00:00:00 [facility] Influenza Virus 2007-01-16 Completed [facility] of Vaccine 00:00:00 [facility] Influenza Virus 2007-01-16 Completed [facility] of Vaccine 00:00:00 [facility] Influenza Virus 2007-01-16 Completed [facility] y of Vaccine 00:00:00 [facility] Influenza Virus 2007-01-16 Completed [facility] of Vaccine 00:00:00 [facility] Influenza Virus 2007-01-16 Completed [facility] of Vaccine 00:00:00 [facility] Influenza Virus 2007-01-16 Completed [facility] of Vaccine 00:00:00 [facility] Vital Signs Vital Name Observation Time Observation Value Comments Source Systolic blood 2019-12-31 19:27:00 131 mm[Hg] Univer sity of pressure [facility] Diastolic blood 2019-12-31 19:27:00 77 mm[Hg] Unive rsity of pressure [facility] Heart rate 2019-12-31 19:24:00 96 [facility] Body temperature 2019-12-31 19:24:00 36.5 [facility] 2019-12-31 19:24:00 18 /min [facility] Body weight 2019-12-31 19:24:00 56.065 kg [facility] BMI 2019-12-31 19:24:00 25.83 kg/m2 [facility] Systolic blood 2019-12-17 15:17:00 160 mm[Hg] Univer sity of pressure [facility] Diastolic blood 2019-12-17 15:17:00 71 mm[Hg] Unive rsity of pressure [facility] Heart rate 2019-12-17 14:29:00 64 /min [facility]i ty of [facility] Body temperature 2019-12-17 14:29:00 37.11 Gerri Univ ersity of [facility] Respiratory rate 2019-12-17 14:29:00 16 /min Univ ersity of [facility] Body height 2019-12-17 14:29:00 147.3 cm Universi ty of [facility] Body weight 2019-12-17 14:29:00 56.926 kg Universi ty of [facility] BMI 2019-12-17 14:29:00 26.23 kg/m2 Universi ty of [facility] Oxygen saturation in 2019-12-17 14:29:00 99 /min University of Arterial blood by [facility] Pulse oximetry Branch Systolic blood 2019-11-15 18:08:00 138 mm[Hg] Univer sity of pressure [facility] Diastolic blood 2019-11-15 18:08:00 76 mm[Hg] Unive rsity of pressure [facility] Heart rate 2019-11-15 18:08:00 89 /min Universi ty of [facility] Body temperature 2019-11-15 18:08:00 36.83 Gerri Univ ersity of [facility] Respiratory rate 2019-11-15 18:08:00 14 /min Univ ersity of [facility] Body height 2019-11-15 18:08:00 147.3 cm [facility] Body weight 2019-11-15 18:08:00 55.566 kg [facility] [place] Medical Branch BMI 2019-11-15 18:08:00 25.60 kg/m2 [facility] Systolic blood 2019-11-02 22:47:00 165 mm[Hg] Univer sity of pressure [facility] Diastolic blood 2019-11-02 22:47:00 57 mm[Hg] Unive rsity of pressure [facility] Heart rate 2019-11-02 22:47:00 99 /min [facility] Body temperature 2019-11-02 22:47:00 36.61 Gerri [facility] Respiratory rate 2019-11-02 22:47:00 20 /min [facility] Oxygen saturation in 2019-11-02 22:47:00 98 /min [facility] blood by [facility] Pulse oximetry Branch Body weight 2019-11-02 01:30:00 64.32 kg [facility] BMI 2019-11-02 01:30:00 29.64 kg/m2 [facility] Body height 2019-10-27 02:27:00 147.3 cm [facility] Procedures Procedure Date / Time Performing Clinician Source Performed DISCLOSURE AND CONSENT, 2019-12-31 05:01:00 Doctor Unassigned, N o [facility] MEDICAL AND SURGICAL Name Medical [facility] nc PROCEDURES XR KNEE 3 VW BILATERAL 2019-12-17 15:36:25 Emanuel Bridges [facility] FLU VACC ([id number]), 6+ 2019-12-17 15:17:05 Emanuel Bridges [facility] MONTHS, IM, QUAD [facility] Branch XR CHEST 2 VW 2019-11-15 16:40:00 Seferino Peng [facility] ASSIGNMENT OF BENEFITS 2019-11-15 16:24:52 Doctor Unassigned, No [facility] Name Medical Branch XR CHEST 1 2019-11-02 21:57:07 Antonieta Reynoso [facility] XR CHEST 1 2019-11-02 20:08:00 Vasyl luda [facility] XR CHEST 1 2019-11-02 10:21:07 Jose [facility] BASIC METABOLIC PANEL 2019-11-02 09:25:00 Waldo Fallon [facility] (NA, K, CL, CO2, Medical Branch GLUCOSE, BUN, CREATININE, CA) CBC WITH DIFF 2019-11-02 09:25:00 Waldo Fallon [facility] XR CHEST 1 2019-11-01 10:34:43 Vasyl [facility] BASIC METABOLIC PANEL 2019-11-01 10:31:[facility] ([facility], K, CL, CO2, Medical Branch GLUCOSE, BUN, CREATININE, CA) CBC WITH DIFF 2019-11-01 10:31:00 Vasyl [facility] XR CHEST 1 VW 2019 20:50:[facility]W 2019 10:54:17 [facility] PANEL 2019 10:26:00 Vasyl [facility] (NA, K, CL, CO2, Medical Branch GLUCOSE, BUN, CREATININE, CA) CBC WITH DIFF 2019 10:26:00 [facility] PO[facility]SE (AUTOMATED) 2019-10-30 18:32:00 RafitaJean-PierreKendrick C [facility]iversity [facility] POCT GLUCOSE (AUTOMATED) 2019-10-30 13:33:00 RafitaJean-PierreKendrick C [facility] XR CHEST 1 VW 2019-10-30 09:07:00 [facility]OLIC PANEL 2019-10-30 06:50:00 [facility] ([facility], K, CL, CO2, Medical Branch GLUCOSE, BUN, CREATININE, CA) CBC WITH DIFF 2019-10-30 06:50:00 [facility]SE (AUTOMATED) 2019-10-30 02:02:00 RafitaJean-PierreKendrick C [facility] POCT GLUCOSE (AUTOMATED) 2019-10-29 23:25:00 RafitaJean-PierreKendrick C [facility] POCT GLUCOSE (AUTOMATED) 2019-10-29 18:45:00 RafitaJean-PierreKendrick C [facility] POCT GLUCOSE (AUTOMATED) 2019-10-29 13:53:00 RafitaJean-PierreKendrick C [facility] BASIC METABOLIC PANEL 2019-10-29 11:45:00 Gurinder [facility] (NA, K, CL, CO2, Medical Branch GLUCOSE, BUN, CREATININE, CA) CBC WITH DIFF 2019-10-29 11:45:00 Gurinder [facility] XR CHEST 1 VW 2019-10-29 10:54:00 [facility]) 2019-10-29 06:04:00 [facility]SE ([facility]OM[facility]) 2019-10-29 03:20:00 [facility] PO[facility] GLUCOSE (AUTOMATED) 2019-10-29 02:21:00 Kendrick Eller U [facility] POCT GLUCOSE (AUTOMATED) 2019-10-28 21:56:00 Kendrick Eller U [facility] CBC WITH DIFF 2019-10-28 21:10:00 [facility] VW 2019-10-28 20:49:00 [facility] SURG[facility]Y EXAM 2019-10-28 20:29:00 [facility] 2019-10-28 19:55:08 Samples, [facility] PREPARE PACKED RBC 2019-10-28 19:50:49 Dmitry [facility] TRANSFUSE PACKED RBC 2019-10-28 18:38:15 Orlando [facility] INTUBATION 2019-10-28 18:03:32 Orlando [facility] CYTO PLEURAL FLUID 2019-10-28 17:18:00 Kendrick Eller [facility] ASPIRATE OR ABSCESS 2019-10-28 17:16:34 Kendrick Eller [facility] CULTURE(AEROBIC/ANAEROBI [facility] C) AFB CULTURE 2019-10-28 17:16:34 Kendrick Eller [facility] FUNGUS (ROUTINE) CULTURE 2019-10-28 17:16:34 Kendrick Eller U [facility] ARTERIAL LINE 2019-10-28 16:20:30 Samples, [facility] HB ABO GROUPING 2019-10-28 16:15:00 Samples, [facility] VIDEO ASSISTED 2019-10-28 15:51:00 Kendrick Eller [facility] THORACOSCOPY [facility] PLEURODESIS 2019-10-28 15:51:00 Kendrick Eller [facility] PLEURAL BIOPSY 2019-10-28 15:51:00 Kendrick Eller [facility] POCT GLUCOSE (AUTOMATED) 2019-10-28 12:55:00 Kendrick Eller [facility] XR CHEST 1 VW 2019-10-28 08:40:00 Vasyl luda [facility] COVID-19 (ID NOW RAPID 2019-10-28 02:36:00 Waldo Fallon [facility] TESTING) [facility] POCT GLUCOSE (AUTOMATED) 2019-10-28 00:25:00 Kendrick Eller [facility] POCT GLUCOSE (AUTOMATED) 2019-10-27 23:33:00 Kendrick Eller [facility] PNEUMOCOCCAL ANTIGEN 2019-10-27 22:17:00 Waldo Fallon [facility] SPUTUM CULTURE 2019-10-27 21:12:00 Vasyl [facility] POCT GLUCOSE (AUTOMATED) 2019-10-27 18:26:00 Kendrick Eller U [facility] BASIC METABOLIC PANEL 2019-10-27 09:48:00 Lynda Fitzpatrick [facility] (NA, K, CL, CO2, Medical Branch GLUCOSE, BUN, CREATININE, CA) CBC WITH DIFF 2019-10-27 09:47:00 Lynda Fitzpatrick [facility] POCT GLUCOSE (AUTOMATED) 2019-10-27 04:09:00 Kendrick Eller U [facility] POCT GLUCOSE (AUTOMATED) 2019-10-26 21:53:00 Jorden De Los Santos [facility] MRSA / MSSA SCREEN BY 2019-10-26 20:34:00 Sj Dixon [facility] CT THORAX WO CONTRAST 2019-10-26 16:56:04 Sj Dixon [facility] POCT GLUCOSE (AUTOMATED) 2019-10-26 16:07:00 Jorden De Los Santos [facility] BLOOD CULTURE SCREEN 2019-10-26 15:19:00 Sj Dixon [facility] BLOOD CULTURE SCREEN 2019-10-26 13:30:00 Sj Dixon [facility] BLOOD CULTURE WORKUP 2019-10-26 13:30:00 Sj Dixon [facility] GRAM POSITIVE BLOOD 2019-10-26 13:30:00 Sj Dixon [facility] PATHOGENS DNA [facility] PROBE-AEROBIC POCT GLUCOSE (AUTOMATED) 2019-10-26 13:14:00 Jorden De Los Santos [facility] BASIC METABOLIC PANEL 2019-10-26 08:52:00 Sj Dixon [facility] (NA, K, CL, CO2, Medical [place] GLUCOSE, BUN, CREATININE, CA) CBC WITH DIFF 2019-10-26 08:52:00 Sj Dixon [facility] GLYCOSYLATED HEMOGLOBIN 2019-10-26 08:52:00 Lynda Fitzpatrick [facility] (A1C) [facility] C-REACTIVE PROTEIN 2019-10-26 03:37:00 Lynda Fitzpatrick [facility] SEDIMENTATION RATE 2019-10-26 03:37:00 Amari Lyndajosie Hancock [facility] PROCALCITONIN 2019-10-26 03:37:00 Lynda Fitzpatrick [facility] POCT GLUCOSE (AUTOMATED) 2019-10-26 01:15:00 Jorden De Los Santos [facility] CT LUMBAR SPINE WO 2019-10-26 00:47:01 Lynda Fitzpatrick [facility] CONTRAST [facility] URINALYSIS 2019-10-25 18:07:00 Jero Hinkle [facility] PROTEIN CREAT RATIO 2019-10-25 18:07:00 Jero Hinkle [facility] URINE RANDOM [facility] SODIUM, URINE RANDOM 2019-10-25 18:07:00 Jero Hinkle [facility] XR CHEST 1 VW 2019-10-25 16:29:50 Zack [facility] BASIC METABOLIC PANEL 2019-10-25 09:22:00 Lynda Fitzpatrick [facility] (NA, K, CL, CO2, Medical Branch GLUCOSE, BUN, CREATININE, CA) CBC WITH DIFF 2019-10-25 09:22:00 Lynda Fitzpatrick [facility] XR SHOULDER 2+ VW RIGHT 2019-10-23 19:25:30 Sj Dixon [facility] NM LUNG PERFUSION ONLY 2019-10-22 18:26:53 Bridget [facility] ECHO ROUTINE W/DOPPLER 2019-10-22 16:03:19 Isidro [facility] BILATERAL VENOUS DUPLEX 2019-10-22 15:46:16 Jorden De Los Santos [facility] LOWER EXTREMITY BY Medical Bran h VASCULAR LAB MAGNESIUM 2019-10-22 08:28:00 Isidro [facility] TROPONIN I 2019-10-22 08:28:00 Bridget [facility] BASIC METABOLIC PANEL 2019-10-22 08:28:00 Jorden De Los Santos [facility] (NA, K, CL, CO2, [facility] GLUCOSE, BUN, CREATININE, CA) CBC WITH DIFF 2019-10-22 08:28:00 Jorden De Los Santos [facility] ACTIVATED PARTIAL 2019-10-22 08:28:00 [facility] PRO-BNP 2019-10-22 08:28:00 Isidro [facility] URINALYSIS 2019-10-22 05:15:00 Bridget [facility] CT THORAX WO CONTRAST 2019-10-21 19:50:29 Earl Hassan [facility] XR CHEST 1 VW COVID 2019-10-21 17:56:31 Earl Hassan [facility] TROPONIN I 2019-10-21 17:41:00 Jorden De Los Santos [facility] COMP. METABOLIC PANEL 2019-10-21 17:41:00 Earl Hassan [facility] ([id number]) Medical [place] CBC WITH DIFF 2019-10-21 17:41:00 Earl Hassan [facility] PROTHROMBIN TIME / INR 2019-10-21 17:41:00 Jorden De Los Santos [facility] D-DIMER 2019-10-21 17:41:00 Earl Hassan Rozina [facility] COVID-19 (ID NOW RAPID 2019-10-21 17:41:00 Earl Hassan [facility] TESTING) Medical Branch EKG-12 LEAD 2019-10-21 17:36:32 Doctor Unassigned, No Univer sity [facility] EKG-12 LEAD 2019-10-21 17:23:52 Earl Hassan [facility] NOTICE OF PRIVACY 2019-10-21 17:02:16 Doctor Unassigned, No [facility] 2019-10-21 05:01:00 Doctor Unassigned, No Uni versity [facility] Encounters Start End Encounter Admission Attending Care Care Encounter Source Date/Time Date/Time Type Type Clinicians Facility Department ID 2021-08-19 Outpatient Fung, Na STLMLC STLMLC [id number] Common 08:55:01 [facility] 2021-08-16 Outpatient Fung, Na STLMLC STLMLC [id number] Common 13:45:01 [facility] 2021-07-27 Outpatient Fung, Na STLMLC STLMLC [id number] Common 16:36:02 [facility] 2021-04-30 Outpatient Fung, Na STLMLC STLMLC [id number] 2 Common 09:07:02 [facility] 2021-04-07 Outpatient Fung, Na STLMLC STLMLC [id number] 2 Common 14:39:05 [facility] 2021-04-07 Outpatient Fung, Na STLMLC STLMLC [id number] Common 14:31:34 [facility] 2021-04-07 Outpatient Fung, Na STLMLC STLMLC [id number] Common 14:19:09 [facility] 2021-04-07 Outpatient Fung, Na STLMLC STLMLC [id number] 2 Common 14:17:42 [id number] [facility] 2021-08-20 2021-08-20 Outpatient GAYLORD_S DMG DMG [id number] [facility]oted 03:21:00 03:21:00 0610 [facility] l Group 2021-07-29 2021-07-29 ambulatory STLMLC STLMLC [id number] Common 00:00:00 00:00:00 [facility] 2021-07-29 2021-07-29 ambulatory STLMLC STLMLC [id number] Common 00:00:00 00:00:00 [facility] 2021-07-27 2021-07-27 ambulatory STLMLC STLMLC [id number] Common 00:00:00 00:00:00 [facility] 2021-07-13 2021-07-13 ambulatory STLMLC STLMLC [id number] Common 00:00:00 00:00:00 [facility] 2021-06-16 2021-06-16 ambulatory STLMLC STLMLC [id number] Common 00:00:00 00:00:00 [facility] 2021-06-15 2021-06-15 ambulatory STLMLC STLMLC [id number] Common 00:00:00 00:00:00 [facility] 2021-05-11 2021-05-11 ambulatory STLMLC STLMLC [id number] Common 00:00:00 00:00:00 [facility] 2021-05-10 2021-05-10 ambulatory STLMLC STLMLC [id number] Common 00:00:00 00:00:00 [facility] 2021-05-04 2021-05-04 ambulatory STLMLC STLMLC [id number] Common 00:00:00 00:00:00 [facility] 2021-04-08 2021-04-08 ambulatory STLMLC STLMLC [id number] Common 00:00:00 00:00:00 [facility] 2021-03-03 2021-03-03 ambulatory STLMLC STLMLC [id number] Common 00:00:00 00:00:00 [facility] 2021-02-10 2021-02-10 ambulatory STLMLC STLMLC [id number] Common 00:00:00 00:00:00 [facility] 2021-02-09 2021-02-09 ambulatory STLMLC STLMLC [id number] Common 00:00:00 00:00:00 [facility] 2021-02-08 2021-02-08 ambulatory STLMLC STLMLC [id number] Common 00:00:00 00:00:00 [facility] 2021-02-08 2021-02-08 ambulatory STLMLC STLMLC [id number] Common 00:00:00 00:00:00 [facility] 2021-02-03 2021-02-03 ambulatory STLMLC STLMLC [id number] Common 00:00:00 00:00:00 [facility] 2020-10-23 2020-10-23 Outpatient DMG DMG [id number] [facility] 08:01:00 08:01:00 0813 Medica l Group 2020-07-27 2020-07-27 Outpatient DMG DMG [id number] [facility] 06:00:00 06:00:00 0517 Medica l Group 2020-07-15 2020-07-15 Outpatient DMG DMG [id number] [facility] 08:00:00 08:00:00 0505 Medica l Group 2019-12-31 2019-12-31 Office Cyrus Emanuel [facility] [id number] Univers 13:50:30 16:55:39 Visit Unknown, Attending PRIMARY [id number] ity of Jazmin Berg [facility] [id number] [facility] [place] [facility] [phone] [place] [address] Branch 2019-12-31 2019-12-31 Outpatient R UNKNOWN, [facility] [id number] Univers 14:30:00 14:30:00 ATTENDING ity of [facility] 2019-12-31 2019-12-31 Outpatient [facility] [id number] Univers 13:20:00 13:20:00 ity of [facility] 2019-12-31 2019-12-31 Ancillary Shilpa Jeong [facility] 1.2. [id number] Univers 10:55:07 11:55:07 Visit Benny Herrera PRIMARY [id number] [phone] Pa dical [address] [place] 2019-12-31 2019-12-31 Outpatient R JAVIER [facility] [id number] Univers 11:00:00 11:00:00 BENNY ity of [facility] 2019-12-31 2019-12-31 Orders Doctor JOAQUINA [id number] Univers 00:00:00 00:00:00 Only Unassigned, MARCIA [id number] ity of [place] [facility] [id number] Corey as [phone] [address] 2019-12-19 2019-12-19 [facility] [id number] Univers 00:00:00 00:00:00 Emanuel PRIMARY [id number] it [id number] [phone] Pa dical 044 [place] 2019-12-18 2019-12-18 [facility]phone [facility] [id number] Univers 00:00:00 00:00:00 Emanuel PRIMARY [id number] it y [id number] [id number] Pa dical 044 [place] 2019-12-17 2019-12-17 [facility] Earline [facility] [id number] Univers 10:20:00 23:59:00 Encounter Jean-Paul Farris PRIMARY [id number] it[id number] [id number] Pa dical 807 [place] 2019-12-17 2019-12-17 Office Emanuel Bridges [facility] [id number] Univers 09:18:36 10:13:32 Visit Jean-Paul Simmons E PRIMARY [id number] [id number] [id number] Pa dical 044 [place] 2019-12-17 2019-12-17 Outpatient [facility] [id number] Univers 09:30:00 09:30:00 ity of [facility] 2019-12-17 2019-12-17 Outpatient R EARLINE, [facility] [id number] Univers 09:30:00 09:30:00 JEAN-PAUL ity of [facility] 2019-11-15 2019-11-17 Office Rafita, [place] 1.2.840.114 [id number] Univers 12:29:49 11:04:37 Visit Kendrick C Y HEALTH [id number] it[id number] [id number] [facility] [address] [place] 2019-11-15 2019-11-15 Hospital [facility] 1.2.840.114 [id number] Univers 11:28:01 23:59:00 Encounter Seferino Y HEALTH [id number] ity of CL[id number] [id number] [facility] 807 [place] 2019-11-15 2019-11-15 Outpatient R GINETTE, [facility] [id number] Univers 00:00:00 00:00:00 SEFERINO ity of [facility] 2019-11-15 2019-11-15 Orders Doctor KUNZ [id number] Univers 00:00:00 00:00:00 Only Unassigned, MARCIA [id number] ity of [place] [facility] [id number] Corey as [id number] [facility] 009 [place] 2019-11-08 2019-11-08 Outpatient R UNKNOWN, [facility] [id number] Univers 13:00:00 13:00:00 ATTENDING ity of [facility] 2019-11-04 2019-11-04 Case Ginette [facility] 1.2.840.114 [id number] Univers 00:00:00 00:00:00 Management Seferino Y HEALTH [id number] ity of [id number] [id number] [facility] 185 Branch 2019-11-04 2019-11-04 Transition Ruma Nelson 1.2.840.114 [id number] Univers 00:00:00 00:00:00 of Care Suad Fitzgerald [id number] [id number] [id number] [facility] 403 Branch 2019-11-04 2019-11-04 Transition Ruma Nelson 1.2.840.114 [id number] Univers 00:00:00 00:00:00 of Care Suad Fitzgerald [id number] [id number] [id number] [facility] 403 Branch 2019-10-21 2019-11-02 [facility] Earl Hassan 1.2.840.1 [id number] Univers 12:12:00 18:55:00 Encounter Jorden De Los Santos [id number] ity of [facility] [id number] [place] [id number] [facility] 089 Branch 2019-10-28 2019-10-28 Anesthesia Red Campos 1.2.840. [id number] Univers 11:21:00 15:18:00 Derrick Andres [place] 350.1.1 3.10 ity of Hospital [id number] [place]y as [id number] [facility] 103 Branch 2019-10-21 2019-10-21 Emergency X [facility] ERT [id number] Univers 12:03:00 12:03:00 ity of [facility] 2019-07-09 2019-07-09 Outpatient [facility] [id number] 00:00:00 00:00:00 Health 2019-05-28 2019-05-28 Outpatient [facility] [id number] [place] 09:41:49 09:41:49 Health 2019-05-28 2019-05-28 Outpatient [facility] [id number] 00:00:00 00:00:00 Health 2019-05-14 2019-05-14 Outpatient [facility] [id number] [place] 09:19:03 09:19:03 Health 2019-05-13 2019-05-13 Outpatient [facility] [id number] [place] 00:00:00 00:00:00 Health 2019-04-26 2019-04-26 Outpatient [facility] [id number] [place] 10:45:57 10:45:57 Health 2019-04-16 2019-04-16 Outpatient [facility] [id number] [place] 14:01:21 14:01:21 Health 2019-04-16 2019-04-16 Outpatient [facility] [id number] [place] 12:58:29 12:58:29 Health 2019-04-16 2019-04-16 Outpatient [facility] [id number] [place] 11:20:07 11:20:07 [facility] 2019-04-15 2019-04-15 Outpatient [facility] [id number] [place] 00:00:00 00:00:00 [facility] 2019-04-15 2019-04-15 Outpatient [facility] [id number] [place] 00:00:00 00:00:00 [facility] 2019-04-12 2019-04-12 Outpatient [facility] [id number] [place] 16:04:17 16:04:17 [facility] 2019-04-12 2019-04-12 Outpatient [facility] [id number] [place] 15:19:36 15:19:36 [facility] 2019-04-12 2019-04-12 Outpatient [facility] [id number] [place] 00:00:00 00:00:00 [facility] 2019-02-01 2019-02-01 Outpatient [facility] [id number] [place] 14:09:59 14:09:59 [facility] 2018-12-28 2018-12-28 Outpatient [facility] [id number] [place] 00:00:00 00:00:00 [facility] 2018-12-06 2018-12-06 Outpatient [facility] [id number] [place] 11:10:58 11:10:58 Health 2018-12-06 2018-12-06 Outpatient [facility] [id number] [place] 10:23:54 10:23:54 Health 2018-12-06 2018-12-06 Outpatient [facility] [id number] [place] 00:00:00 00:00:00 [facility] 2018-11-13 2018-11-13 Outpatient [facility] [id number] [place] 00:00:00 00:00:00 [facility] 2018-11-13 2018-11-13 Outpatient [facility] [id number] [place] 00:00:00 00:00:00 [facility] 2018-10-11 2018-10-11 Outpatient [facility] [id number] [place] 10:14:40 10:14:40 [facility] 2018-10-11 2018-10-11 Outpatient [facility] [id number] [place] 09:07:22 09:07:22 [facility] 2018-08-07 2018-08-07 Outpatient [facility] [id number] [place] 10:20:11 10:20:11 [facility] 2018-08-07 2018-08-07 Outpatient [facility] [id number] [place] 08:26:50 08:26:50 [facility] 2018-08-07 2018-08-07 Outpatient [facility] [id number] [place] 00:00:00 00:00:00 [facility] 2018-07-11 2018-07-11 Outpatient [facility] [id number] [place] 14:06:46 14:06:46 [facility] 2018-07-11 2018-07-11 Outpatient [facility] [id number] [place] 13:00:20 13:00:20 [facility] 2018-05-25 2018-05-25 Outpatient [facility] [id number] [place] 00:00:00 00:00:00 [facility] 2018-05-02 2018-05-02 Outpatient [facility] [id number] [place] 00:00:00 00:00:00 [facility] 2018-04-27 2018-04-27 Outpatient [facility] [id number] [place] 08:14:01 08:14:01 [facility] 2018-04-20 2018-04-20 Outpatient [facility] [id number] [place] 00:00:00 00:00:00 [facility] 2018-04-19 2018-04-19 Outpatient [facility] [id number] [place] 00:00:00 00:00:00 [facility] 2018-04-19 2018-04-19 Outpatient [facility] [id number] [place] 00:00:00 00:00:00 [facility] 2018-04-17 2018-04-17 Outpatient [facility] [id number] [place] 08:04:30 08:04:30 [facility] 2018-04-10 2018-04-10 Outpatient [facility] [id number] [place] 08:44:35 08:44:35 [facility] 2018-04-09 2018-04-09 Outpatient [facility] [id number] [place] 00:00:00 00:00:00 [facility] 2018-04-06 2018-04-06 Outpatient [facility] [id number] [place] 09:42:58 09:42:58 [facility] 2018-04-06 2018-04-06 Outpatient [facility] [id number] [place] 08:34:43 08:34:43 [facility] 2018-04-06 2018-04-06 Outpatient [facility] [id number] [place] 08:02:30 08:02:30 [facility] 2018-03-30 2018-03-30 Outpatient [facility] [id number] [place] 15:32:31 15:32:31 [facility] 2018-03-19 2018-03-19 Outpatient [facility] [id number] [place] 00:00:00 00:00:00 [facility] 2018-03-08 2018-03-08 Outpatient [facility] [id number] [place] 14:32:20 14:32:20 [facility] 2018-03-02 2018-03-02 Outpatient [facility] [id number] [place] 15:51:25 15:51:25 [facility] 2018-03-02 2018-03-02 Outpatient [facility] [id number] [place] 15:09:28 15:09:28 [facility] 2018-02-23 2018-02-23 Outpatient [facility] [id number] [place] 08:06:50 08:06:50 [facility] 2017-12-27 2017-12-27 Outpatient [facility] [id number] [place] 08:56:13 08:56:13 [facility] 2017-11-27 2017-11-27 Outpatient [facility] [id number] [place] 00:00:00 00:00:00 [facility] 2017-11-14 2017-11-14 Outpatient [facility] [id number] [place] 10:56:24 10:56:24 [facility] 2017-10-27 2017-10-27 Outpatient [facility] [id number] [place] 00:00:00 00:00:00 [facility] 2017-08-02 2017-08-02 Outpatient [facility] [id number] [place] 15:01:28 15:01:28 [facility] 2017-07-14 2017-07-14 Outpatient [facility] [id number] [place] 00:00:00 00:00:00 [facility] 2017-07-05 2017-07-05 Outpatient [facility] [id number] [place] 08:53:53 08:53:53 [facility] 2017-06-29 2017-06-29 Outpatient [facility] [id number] [place] 16:08:32 16:08:32 [facility] 2017-06-26 2017-06-26 Outpatient [facility] [id number] [place] 15:40:20 15:40:20 Health 2017-05-17 2017-05-17 Outpatient [facility] [id number] [place] 07:11:41 07:11:41 [facility] 2017-05-14 2017-05-14 Emergency [facility] [id number] [place] 09:17:03 09:17:03 Health 2017-05-14 2017-05-14 Emergency [facility] [id number] [place] 05:31:45 05:31:45 [facility] 2017-05-08 2017-05-08 Outpatient [facility] [id number] [place] 13:03:57 13:03:57 Health 2017-05-08 2017-05-08 Outpatient [facility] [id number] [place] 13:02:09 13:02:09 [facility] 2017-05-03 2017-05-03 Outpatient [facility] [id number] [place] 11:03:53 11:03:53 [facility] 2017-04-19 2017-04-19 Outpatient [facility] [id number] [place] 08:40:33 08:40:33 [facility] 2017-04-07 2017-04-07 Outpatient [facility] [id number] [place] 00:00:00 00:00:00 [facility] 2017-03-10 2017-03-10 Outpatient [facility] [id number] [place] 08:16:47 08:16:47 [facility] 2017-02-22 2017-02-22 Outpatient [facility] [id number] [place] 11:44:22 11:44:22 [facility] 2017-02-22 2017-02-22 Outpatient [facility] [id number] [place] 09:55:28 09:55:28 [facility] 2017-02-15 2017-02-15 Outpatient [facility] [id number] [place] 00:00:00 00:00:00 [facility] 2017-02-08 2017-02-08 Outpatient [facility] [id number] [place] 09:45:43 09:45:43 [facility] 2017-01-05 2017-01-05 Outpatient [facility] [id number] [place] 15:07:06 15:07:06 [facility] 2016-12-28 2016-12-28 Outpatient [facility] [id number] [place] 08:57:15 08:57:15 [facility] 2016-12-13 2016-12-13 Outpatient [facility] [id number] 12:33:16 12:33:16 Health 2016-11-22 2016-11-22 Outpatient [facility] [id number] [place] 16:11:27 16:11:27 [facility] 2016-11-16 2016-11-16 Outpatient [facility] [id number] [place] 11:01:49 11:01:49 [facility] 2016-11-16 2016-11-16 Outpatient [facility] [id number] [place] 10:19:16 10:19:16 [facility] 2016-11-02 2016-11-02 Outpatient [facility] [id number] [place] 09:52:43 09:52:43 [facility] 2016-11-02 2016-11-02 Outpatient [facility] [id number] [place] 08:28:45 08:28:45 [facility] 2016-10-19 2016-10-19 Outpatient [facility] [id number] [place] 08:52:53 08:52:53 [facility] 2016-09-29 2016-09-29 Outpatient [facility] [id number] [place] 13:20:12 13:20:12 [facility] 2016-09-28 2016-09-28 Outpatient [facility] [id number] [place] 08:57:53 08:57:53 [facility] 2016-09-27 2016-09-27 Outpatient [facility] [id number] [place] 00:00:00 00:00:00 [facility] 2016-08-31 2016-08-31 Outpatient [facility] [id number] [place] 08:04:54 08:04:54 [facility] 2016-08-30 2016-08-30 Outpatient [facility] [id number] [place] 14:14:27 14:14:27 [facility] 2016-08-17 2016-08-17 Outpatient [facility] [id number] [place] 14:09:01 14:09:01 [facility] 2016-08-16 2016-08-16 Outpatient [facility] [id number] [place] 06:46:47 06:46:47 [facility] 2016-08-16 2016-08-16 Outpatient [facility] [id number] [place] 06:27:00 06:27:00 [facility] 2016-08-15 2016-08-15 Outpatient [facility] [id number] [place] 12:55:38 12:55:38 [facility] 2016-08-15 2016-08-15 Emergency [facility] [id number] [place] 04:39:38 04:39:38 [facility] 2016-08-15 2016-08-15 Outpatient [facility] [id number] [place] 00:00:00 00:00:00 [facility] 2016-08-14 2016-08-14 Emergency [facility] [id number] [place] 19:46:32 19:46:32 [facility] 2016-08-14 2016-08-14 Outpatient [facility] [id number] [place] 18:37:14 18:37:14 [facility] 2016-08-03 2016-08-03 Outpatient [facility] [id number] [place] 09:36:02 09:36:02 [facility] 2016-08-03 2016-08-03 Outpatient [facility] [id number] [place] 08:20:47 08:20:47 [facility] 2016-07-29 2016-07-29 Outpatient [facility] [id number] [place] 10:23:00 10:23:00 [facility] 2016-07-29 2016-07-29 Outpatient [facility] [id number] [place] 00:00:00 00:00:00 [facility] 2016-07-27 2016-07-27 Outpatient [facility] [id number] [place] 10:36:58 10:36:58 [facility] 2016-07-27 2016-07-27 Outpatient [facility] [id number] [place] 00:00:00 00:00:00 [facility] 2016-07-26 2016-07-26 Outpatient [facility] [id number] [place] 14:14:11 14:14:11 [facility] 2011-05-09 2011-05-10 Emergency X LITO, [facility] [id number] [facility] 17:40:00 02:37:00 KALANI 3 [facility] 2007-07-26 2007-07-27 Emergency X JAGUAR, [facility] ERT [id number] [facility] 23:04:00 01:47:00 HAO 2 [facility] 2006-10-21 2006-10-21 Emergency X EBONY MUÑOZ [facility] ERT [id number] Univers 09:26:00 20:50:00 EBONY MUÑOZ 5 [facility] 2006-07-10 2006-07-11 Emergency X PAUL [facility] ERT [id number] Univers 19:52:00 00:18:00 VANI 8 [facility] 2006-03-24 2006-03-25 Emergency X HARLAN GIBBONS [facility] ERT [id number] Univers 20:44:00 00:30:00 7 [facility] 2005-11-13 2005-11-13 Emergency X SARAHJAREN, [facility] ERT [id number] Univers 01:43:00 14:41:00 ADITYA 4 [facility] Results Test Test Test Results Result Source Description Time Comments Comments XR KNEE 3 VW 2019-12- No fracture or [facility] BILATERAL 06 dislocation Mild [place] [facility] 19:10:48 bilateral Branch tricompartmental osteoarthritis Small [...] User - 12/17/2019 2:12 PM CDTORDERING PHYSICIAN: JEAN-PAUL GRACESTORY: Osteoarthritis with knee painTECHNIQUE: 3 standing views of each kneeCOMPARISON: None availableFINDINGS:There is no fracture or dislocation. Small right suprapatellar effusion. Noleft effusion.. Mild bilateral tricompartmental joint space loss witharticular surface hypertrophic change. Medial compartment is most involved.Soft tissues unremarkable.IMPRESSIONNo fracture or dislocationMild bilateral tricompartmental osteoarthritisSmall right joint effusion.RL 4728 CHEST 2 VW 2019-11- 1. ?No evidence of acute University of cardiopulmonary disease. [facility] 19:17:43 2. Interval improvement B ranch of [...] noted right-sided pneumothorax.Preliminary Report Dictated by Resident: Sue Arcos, Juancarlos Bill MD., have reviewed this study and agree withthe above report. XR CHEST 1 2019-10- Findings and Impression: University ?Overall, no significant [facility] 23:06:47 change in the Branch intervalsince 11/02/2019 [...] No acute osseous abnormality. XR CHEST 1 2019-10- FINDINGS-IMPRESSION: [facility] #[id number]: The right chest [facility] 22:41:17 tube terminates over the Branch right [...] right lateral chestwall suggestive of subcutaneous emphysema. #[id number]: Interval removal of right-sided chest tube. Mild [...] Female; sp chest tube out COMPARISON: 11/01/2019 [facility], Radiant Results Inft User - 11/02/2019 5:42 PM CDTXR CHEST 1 VW, XR CHEST 1 VWHISTORY: 64 years-old; Female; sp chest tube out COMPARISON: 11/01/2019IMPRESSIONFINDIN GS-IMPRESSION:#[id number]:Th e right chest tube terminates over the [...] and right lateral chestwall suggestive of subcutaneous emphysema.#[id number]:Interv al removal of right-sided chest tube.Mild improvement [...] VW 2019-10- FINDINGS-IMPRESSION: U n[facility] of 22 #[id number]: The right chest [facility] 22:41:17 tube terminates over the Branch right [...] right lateral chestwall suggestive of subcutaneous emphysema. #[id number]: Interval removal of right-sided chest tube. Mild [...] Female; sp chest tube out COMPARISON: 11/01/2019 [facility], Radiant Results Inft User - 11/02/2019 5:42 PM CDTXR CHEST 1 VW, XR CHEST 1 VWHISTORY: 64 years-old; Female; sp chest tube out COMPARISON: 11/01/2019[facility]:#[id number]:Th e right chest tube terminates over the [...] and right lateral chestwall suggestive of subcutaneous emphysema.#[id number]:Interv al removal of right-sided chest tube.Mild improvement in right-sided pleural effusion. Right lower lung airspaceopacities. Unchanged small right apical pneumothorax.Right chest wall subcutaneous emphysema. The findings of this study, including pneumothorax, have been discussedwith and acknowledged by Dr. Reynoso in person 11/02/2019 at 5:35 PM withreadback.Preliminary Report Dictated by Resident: Dana Lujan, Juancarlos Bill MD., have reviewed this study and agree [...] 33.6 g/dL 31.6-35.1 RDW-SD (test code = 92240-9) 42.8 fL 39-49.9 RDW-CV (test code = 788-0) 13.2 % 12-15.5 PLT (test code = 777-3) See_Comment H [Au tomated message] The system which ge nerated this result transmit mary kay reference range: 166 - 35 8 10*3/?L. The reference range was not used to interpret th is result as normal/abnormal . MPV (test code = 34490-0) 8.9 fL 9.5-12.9 L NRBC/100 WBC (test code = See_Comment [ Automated message] The 6447103085) system which ge nerated this result transmit mary kay reference range: 0.0 - 10 .0 /100 WBCs. The reference r carlitos was not used to interpr et this result as normal/abnor mal. NRBC x10^3 (test code = <0.01 See_Comment [Au tomated message] The 8022038334) system which ge nerated this result transmit mary kay reference range: 10*3/?L. The reference range was not u sed to interpret this result as normal/abnormal . GRAN MAT (NEUT) % (test code 72.1 % = 770-8) IMM GRAN % (test code = 5.10 % 1709183702) LYMPH % (test code = 736-9) 14.4 % MONO % (test code = 5905-5) 6.0 % EOS % (test code = 713-8) 2.1 % BASO % (test code = 706-2) 0.3 % GRAN MAT x10^3(ANC) (test 8.96 10*3/uL 1.88-7.09 H code = 7428365839) IMM GRAN x10^3 (test code = 0.63 10*3/uL 0-0.06 H 4317682813) LYMPH x10^3 (test code = 1.79 10*3/uL 1.32-3.29 731-0) MONO x10^3 (test code = 0.75 10*3/uL 0.33-0.92 742-7) EOS x10^3 (test code = 0.26 10*3/uL 0.03-0.39 711-2) BASO x10^3 (test code = 0.04 10*3/uL 0.01-0.07 704-7) Lab Interpretation (test Abnormal code = 78806-7) [facility] METABOLIC PANEL (NA, K, CL, CO2, GLUCOSE, BUN, CREATININE, CA)2019-11-02 10:49:00 Test Item Value Reference Range Interpretation Comments NA (test code = 134 mmol/L 135-145 L 2889690205) K (test code = 3.8 mmol/L 3.5-5 5912342351) CL (test code = 103 mmol/L 98-108 0687053205) CO2 TOTAL (test code = 28 mmol/L 23-31 2908282207) AGAP (test code = 2-16 1271755985) BUN (test code = 14 mg/dL 7-23 6788734315) GLUCOSE (test code = 93 mg/dL 70-110 2809951384) CREATININE (test code = 0.91 mg/dL 0.5-1.04 5696335578) CALCIUM (test code = 8.9 mg/dL 8.6-10.6 2825580279) eGFR Calculation mL/min/1.73m2 (Non-) (test code = 4098325890) eGFR Calculation mL/min/1.73m2 () (test code = 0060731200) SADIE (test code = SADIE) Association of [...] tests). Lab Interpretation Abnormal (test code = 05967-5) [id number] 18:07:00 Test Item Value Reference Range Interpretation Comments Blood Culture Cutibacterium Organism iden tified Workup (test (Propionibacterium) by DNA code = 600-7) avidum probeMaria Estheritiona l work-up perform ed only per reques t. Culture plate(s ) will be saved until this date: - 020 Gram stain Isolated from This is an chemo ended (test code = anaerobic bottle report. The se results 664-3) Gram positive cocci have bee n appended to a previously preliminary mikal ified report. [facility] WITH [id number] 11:45:00 Test Item Value Reference Range Interpretation [...] RDW-SD (test code = 44.3 fL 39-49.9 51406-7) RDW-CV (test code = 13.3 % 12-15.5 788-0) PLT (test code = See_Comment H [Automated 777-3) message] The sy stem which generated this result transmitted reference range : 166 - 358 10*3/ ?L. The reference r carlitos was not used to interpret this result as normal/abnormal . MPV (test code = 8.9 fL 9.5-12.9 L 29102-2) NRBC/100 WBC (test See_Comment [Automat ed code = 8651545723) message] The system which generated this result transmitted reference range : 0.0 - 10.0 /100 WBCs. The refer ence range was not u sed to interpret th is result as normal/abnormal . NRBC x10^3 (test code <0.01 See_Comment [Auto mated = 1273686677) message] The s ystem which generated this result transmitted reference range : 10*3/?L. The reference range was not used to interpret this result as normal/abnormal . GRAN MAT (NEUT) % 74.7 % (test code = 770-8) IMM GRAN % (test code 6.60 % = 5440000309) LYMPH % (test code = 11.4 % 736-9) MONO % (test code = 5.0 % 5905-5) EOS % (test code = 2.0 % 713-8) BASO % (test code = 0.3 % 706-2) GRAN MAT x10^3(ANC) 9.02 10*3/uL 1.88-7.09 H (test code = 4931190846) IMM GRAN x10^3 (test 0.80 10*3/uL 0-0.06 H code = 7605606951) LYMPH x10^3 (test code 1.37 10*3/uL 1.32-3.29 = 731-0) MONO x10^3 (test code 0.60 10*3/uL 0.33-0.92 = 742-7) EOS x10^3 (test code = 0.24 10*3/uL 0.03-0.39 711-2) BASO x10^3 (test code 0.04 10*3/uL 0.01-0.07 = 704-7) Lab Interpretation Abnormal (test code = 51355-0) [facility] (NA, K, CL, CO2, GLUCOSE, BUN, CREATININE, CA)2019-11-01 11:29:00 Test Item Value Reference Range Interpretation Comments NA (test code = 135 mmol/L 135-145 2185736443) K (test code = 3.6 mmol/L 3.5-5 1259427681) CL (test code = 105 mmol/L 98-108 8682154049) CO2 TOTAL (test code = 29 mmol/L 23-31 3354384022) AGAP (test code = 2-16 L 9182690910) BUN (test code = 16 mg/dL 7-23 7949279952) GLUCOSE (test code = 106 mg/dL 70-110 1769971718) CREATININE (test code = 0.96 mg/dL 0.5-1.04 9960167071) CALCIUM (test code = 8.3 mg/dL 8.6-10.6 L 4441533571) eGFR Calculation mL/min/1.73m2 (Non-) (test code = 7783690697) eGFR Calculation mL/min/1.73m2 () (test code = 8453857146) SADIE (test code = SADIE) Association of [...] tests). Lab Interpretation Abnormal (test code = 24630-9) [facility] [id number] 22:17:51 Interval removal of right basilar chest [...] reviewed this study and agree with the abovereport.[facility] [id number] 16:01:00 Test Item Value Reference Range Interpretation Comments Blood Culture-Aerobic No organisms No growth Previo us (test code = 57442-4) isolated prelim inary verified result was Culture [...] Culture-Anaerobic isolated preliminar y (test code = 64210-9) verifi ed result was Culture In Progress [...] CDT Lab Interpretation Normal (test code = 53215-6) [facility] [id number] 14:38:00 Test Item Value Reference Range Interpretation Comments Case Report (test code Surgical Pathology ? ? = [id number]) ?Case: [id number] ? Authorizing Provider: ?Kendrick Eller MD ? ? ?Collected: ? 10/28/2019 1529 ?Ordering Location: ? ? [facility] Post Received: ?10/28/2019 1534 ? Anesthesia Care Unit ? Pathologist: ? Jean, ? MD Yolis ?Specimen: ? ?PLEURAL, RIGHT, PLEURAL RIND ? Final Diagnosis (test y8stvYVcFWPau0urSYIleC code = 7257940507) FuZzEwMzNcZnRuYmpcdWMx DIyovlHpNOapc9SjV9WkXu AwMFxhbnNpXGRlZmxhbmcx GESlHGX6gtXtIUJjEKpzVK KvRAdjRu5voGJlhKlbQrBs RWLev6kiywZHpxivjOx1u4 vrVPWlUcD5tLKuWDewJ3xr hnRmvMDaVNYdMGc0iI29KV LeoQ2dyCQtFHxjdoTiQsS6 TTvsPBIfYvN5YMBubDJvHZ VwT2yqBGIxLJkeUBJnLGrl yAHySAV8oScja2C3nWUqyR BamSfhCdQkHbHnVPWYn5Ol YYu6pCqtW5BwZDFzJrN0iL QgUGFyYWdyYXBoIEZvbnQ7 yS19GQvdtoY4rQQrx5Azk6 5gy079yN9waCMtYQL0PKFa ECYysBPvRJVhNIZ9BBVozY VzC3fnGGghBZ2mojfdMYQ7 MFxtYXJndDcyMFxtYXJnYj MekZXiVJSsvLkdIPski491 DWL7GnIoTK3iC0Xke1A9uD 9maXRcZGVmdGFiNzIwXGZv wk8wnSUxLBaxk9HoIUX0mo V0fSEelODtEXMkPY48Ozdn g5QsMctoTVQ2KZPzulTze9 Odd6qsMiNvwsNgV6ywF4Mo ZHJoZWFkXHBnYnJkcmZvb3 Iku6DigSBgxNb8i1eiBPIt HPAscHdff3cmDHD3LOLqC2 G4iJVyt4lvBPlhYZKrsPN6 luCrYMGxlAIzZ6VumC2eKV lmWV3qabw4b1zsCpMbDJ8v okkxz0ziNEfzSZVeQFP0Rx OhXTHwo6BpwhprToKhf5Kv kZVmVLenG82pb179LNAwfa KnH8vnpJYeynyltQSobivx MRijehC6PZFyWBJnJTmaJP YxXGZzMjBcbGFuZzEwMzNc aGljaFxmMVxkYmNoXGYxXG vvH9urXzDsQsPkGAweGZIq LX6eZDeSYUDXPZKPLSmVRJ oeRNvYDAXQJ030RTWdobIw QOGyUVATCGKNUO6LFWWuWk EKQk0PJQTiUK7WTPbDSQ8O GKMSKO8USCDGG7EOMSkaZR RkAFJoPC6rHu2gWruGOtlW IUYCEKVLUOaiJAkUA2CKMR gMPD0EIDZTLOViiLWlUKDv RJGrQY8NIL9YZHhTYmLHF1 kgSURFTlRJRklFRFxwYXIg NUKgIH3bH5GSMSNGRK8PDg RccGFyXHBhclxwbGFpblxm MVxmczIyXGxhbmcxMDMzXG hsJ5xuFrHqHXGgbJudQOjx a0ZtCRZbUEVvByxgomZqXC Qch8npUFR6kk5zehinHG7v IERPXHBsYWluXGYxXGZzMj BcbGFuZzEwMzNcaGljaFxm RXkiSgEtUBNdWXnsC0xoPl FnYyFpCJvrIKQ9p6bonAGo XHNzdGVjZjIyMDAwXGFuc2 lcZGVmbGFuZzEwMzNcZnRu ZefevDZkIYIgUzRcc4itj2 62oRIjo3ygZDHrEqK7fRKo JFAxoQbtspo7jMcmQySnOL Rwu5ccqxMrNgHaBUJbTHMt FWQcsJSjQ770x5fsf6ofqp HntEE4VSKqDVZ1TBlbbbRn kyI8TTzjcEQbTfY4KGyfri VnBWbcwoDkatOwDsu5GKGg T407DOQ8mZaqt1caZCQ3SV IkFAXmPwBaCm6ufWEqC491 WMIlAKYFAOVnbGy7IISsjk ZureOfiCPSt781G538n2vg BJYoesOreTgUdeojr6ykX9 19XHBhcGVydzEyMjQwXHBh hYKflOD8TXYcFQ0wmrkrOW kmJUfwYQBypuQ5CMWcuNSl B1GbKKFbID3lxrdlILY1FM lgYPUeJFX2VvPvPYQti2Hz crj4SbVzrs5ipm29FTO6f8 JnyZgyMKK0AYL9RsDbAn0z qYKuTXApIX5dfNcup92uXD ApWP6vcG9twx7rymKtAXpm eDSsgUU1ecvtPCB8MHWktp Pyd6Hzp9flHuLdwuZnM2zs M4UkDZBvAUQvRGFuHaXwdd Nvs4Sin7AxeRCbyEr0v7xz EOZxLALecKykl2cqLDV4MA WtI2C1mBOcl2ogALssXKBd nHY2opC9VIKlfYKhP9EyrV 1pXJAtWH3uwla2z9buOTF3 HHvySKBkZyT4jjC8MJKvrI BuTKWigTenIQran010HEX4 MrFiTYNki6HbC1KaqWahZ7 0shRlhA34qUHLuzPtjhK0l eFwetR4oPmJhPiScTSdtZU JwTCQwfHOfADY2sSWtpuRi gGWvuKOeEFNsGAbuJXY3aZ BhclxwbGFpblxmMVxmczIw HIwykfycNIKxHMsdW2ydXa YiFXKnkNseRXmom3ZaARQj AVMqXoocdoDpZNd3cxOrYR NattEVPMeookXinXCfr84n YWxseSByZXZpZXdlZCBhbG hkh5VlX1ptPP3iS0XutUEv fsNkztCaTTlvELQds7t2lN VrgLfwi2BxxRMhGS45poUa OEGiUYP7SZCtp9jsDB41tm zpKvSugG71rfPstbGwPVJt q9orF0ridYTkp9Wiv9Mzgt TnOGgmq9WtDL8eiAKifblw mIH9OEHhdNExmbYfwqK2sA sbUDAqpS6nmK2iiWtlgT3f UeKpJjVuELlwQG1xJJOtR0 wrcDMtLMCsQVHhF2rnMnQe uT8rdAlxNQqsVlZnRyOgZR xwYXJccGFyXHBhclxzYTE2 CQynaNZ3LZmfaP77tKKhSF BsYWluXGYwXGZzMjRccGxh sN4gJbIvAqKxFSunHG3oQN GjX6cxhLClCAGfMQKcZ6jf KqOhsY4cyPbbVKfjWjFeZd RuSHqpoBEvrBDPXRWnj3od E2vgcBUznw0nPBMetE3yXT nrX72owB3uHV98VXPdotSs kd0hVZXinKDPCC8NJDzkIM k2BHZIqDE6PZQxuSF3abga QzQ9FVUGlAgjQSKbMVA3DO haC645qWidFHrhFZg5JIST bUZ1RVOYZHH7VyV4D9eyvV FpblxmMVxmczIwXGxhbmcx PNClSYxjA5jmTdWfDQDigY xhVVmjg2GlQEBqQHIjHmom lwGyLSs0tlBsFVWjqy50 Final Diagnosis Comment t7qigFOoNEFnoBLiWkZrAD (test code = HoAPTjx4prKWTzxUKiCoQg [id number]) MzNcZnRuYmpcdWMxXGRlZm Exm7ygg798pXLuz3hhEFLy EmQ9pAKzHXLpsXUsC782IG DkIFeuk9cco5ZbHABsfGNf t6Z9WGAPbjusuKw3cHigK7 1na6G2FaplV6quUNJlSGOb E1YfLE6cOESdSnf8RSS7XW Q1EYKnZJTvW7RuSU7pGCPm iPVmKEt4d9jbrTdeJAXdRT I8t3kwPWxiuiVuJM5ghh3o tFs0f4mtmzUtBCBjBDUtqG DYJMWyN9WvzIlvPj1vjFt6 fZjnBvckIBY8Syd1WH0bpj 11uln5bZqmFHHsdflxYlE0 NVwhONYuasabPGr3XIkgWO GzgMBmIVMzrYNbR8FgTPml YO5amuq1AxLhZR9xkrjlYR vrUIMiZME1GdPiUQNdw0Oz reohAoCjbp1mwt71SWU3h3 AvaTwcQKD3EPG8PmInAr6j jQEwVXRrSF5lGnKrtPXxUZ Bekx13vCzrKQgldxTpeF8v PrLwSVOnpRNvLWIqOQ6vpD CiKZRnsY7sknviFEKrBdRg tthsNAPipOuqkvDwOf7vbZ ybKXY9DPnhS2wilZ6jInT8 DGzwJ3wosX2xQIm7QYvaqE I5GLUkgG0uDI2neoyyo9ld EVF2DXelUFYvrbY5vwHtGO EzpWKoW4IznZ20WpNsfHZj V9RemC0yQFzxRUCzobs0Ix ZfEg4vzMSviCX8IDwdAibw YWdlXHBnbmNvbnRccGduZG VjXHBsYWluXHBsYWluXGYw HCNaCiYdaTanrPfecV1jIh TpYxEaQBttLT2zYDTtJ7ef wFGuBHRdHGRcB7ldVxVzzM 9jaFxmMVxmczIwXHBhciBB FQOczDJiaNijfY8fpB8ufB 9erYtngA3lbUOjgCPspHHz aZZgvrKcyvMmyaOqv4KbHO Fcg63wZiioM3mlWWToMW6n WEfaEE1qE6R7mLWhUxQnyF GoBOVectKGgBauZ29blQBr bGGlMYMrBCTeaaobr9IpGK NiJFMzvhCxFWMipj1esggu dGUuIFxwYXJ9 Clinical Information Pleural effusion [J90] (test code = [id number]) Gross Description (test s7cliEWpCRFqjTKyGtTaZP code = [id number]) ZcAZKfp0laAYXbsEKvAnRr MzNcZnRuYmpcdWMxXGRlZm Agn9hvi736uSOhm6qoVIBm GzI5rACoEXJjbOItW278DF LhNVpst1gwh2LxEFOhnZMw d5M5FINXztshvEo3yVeiH7 7dw0K1KzlaX9uuDAPxTIjv CTTiAWnbsHYbMRE8NHVlQV Z8HQolghFpwnE3FGfqlLDx ElH4LCf3p6yrlLcdNCVzKX C4t6lkWCdaniDjOU9lag2y uIi0m3zmokVjKISzLZQnkS ZGCIRpD6GtcZppLz6rcHy7 lFqpCfexKJB4Yna7YG9nxe 59hqc5hBqpFPTvqkcmYhT9 TJymNHIhksupDEv3OCpqNA StsQIhEMJugWDsY5MfMBiu QT8yfdt2MgZiGY5fjqvvKT kzILCgQFK6TiOzKAKwt9Vz mexeFfXoya5bcx54KKY7w3 GbqMnfZFV2JZZ8NdIcJf0q jLHwRKHuYT4aJzMlmGEvWU Unxk39kRojOKbuqbUzqF2t TzFgODDjuGUnNDBrEU5leU IrYBWgtH9piuuuYBSyKsFs avugOXJneTzkceJgOp1wkX faGCW9XJftP0agxS2qGaC1 OIhzE5uplG1vKKn9AZddlM D2CRSfxM6vUF8visdra6fb AIW9MPyuEEKrciN6dgZrPS NfmSJaO0QpfS46ZvYspLDn P3PlqT5aRWdtDOPsrct0Op XiWz5zpRMwaLM5LDhfPznm YWdlXHBnbmNvbnRccGduZG VjXHBsYWluXHBsYWluXGYw WGTkMsGdwMssmAqirR1hKs BcZnMyMFxwbGFpblxmMVxm czIwIFNwZWNpbWVuIEEgaX SnpiZzHNq9SXAzJyMhv3jn uQJoVVnaLZX3eDJnKRDicA bzrrKjfvIwLY6oYKFJWWWs fK9fJASpDKUnnLZ0xyRcJN LgiUulgNYcHF9oETWvqxIq f2EnJN8eXIBkptOtVEQcrk zsSi7iKUssoAQjKG0xbeAd YKlyFmQwfvGrS5PvKETza9 3niQW2bVPwdEAcOoXlR82o bnRzICgxLjcgeCAxLjAgeC RgKsRfA35gHW5lESLyZYB5 DPPqBIA7LCHcYENrsEjnXJ VmCWWipVUclE1jgbQauhBj NUWhCAlbfWRyONC1tU8bLE LucK0hesL5XTSfMBRzemSv n82uH2Hmi7FwTMH4mTVwnG VaJCWcae3aSYbqWQRpSBZr mICvHFegADB9Ry2wzCFlVN BlbnRpcmVseSBpbiBBMSAo Eyshy5PgfXNcv0PlUSVaAf CyQ74xmfPtZTHlWVejDOSb TXDlOnDnaXdpCRNpTOv5Tg xwbGFpblxmMVxmczIwIEEy RDyvHHNefyXrpXUgc1AxFT SzNyHgS73whyBwHcetSUAt wUUtZC6dp7D8KArrzpZnsH paYCR9bXVCGDA8fMHpceGx pUYwJIv4jJljIR7eACicBY 0bbIxuTZXmDAVXT1FdPDUt cn0= Embedded Images (test code = 0038943317) [facility] [id number] 13:27:50EXAM: XR CHEST 1 VW HISTORY: chest [...] since yesterday. ? [facility], Radiant Results Inft -10/31/2019 8:29 AM CDTEXAM: XR CHEST 1 VWHISTORY: [...] appearance of the chest islittle changed since yesterday.[facility]EROBIC/ANAEROBIC)2019 13:27:00 Test Item Value Reference Range Interpretation Comments Aspirate or No aerobic/anaerobic Abscess Culture organisms isolated (test code = 62562-9) Gram stain (test Occasional (Rare) code = 664-3) Polymorphonuclear leukocytes [facility] METABOLIC PANEL (NA, K, CL, CO2, GLUCOSE, BUN, CREATININE, CA)2019 11:40:00 Test Item Value Reference Range Interpretation Comments NA (test code = 138 mmol/L 135-145 2755257157) K (test code = 3.4 mmol/L 3.5-5 L 9628163929) CL (test code = 107 mmol/L 98-108 2586797435) CO2 TOTAL (test code = 26 mmol/L 23-31 6423344631) AGAP (test code = 2-16 6672605853) BUN (test code = 23 mg/dL 7-23 9235518149) GLUCOSE (test code = 96 mg/dL 70-110 6797209142) CREATININE (test code = 1.01 mg/dL 0.5-1.04 3344679804) CALCIUM (test code = 8.6 mg/dL 8.6-10.6 9552532771) eGFR Calculation mL/min/1.73m2 (Non-) (test code = 5194016453) eGFR Calculation mL/min/1.73m2 () (test code = 9799346587) SADIE (test code = SADIE) Association of [...] tests). Lab Interpretation Abnormal (test code = 26976-6) [facility] WITH [id number] 11:18:00 Test Item Value Reference Range Interpretation [...] RDW-SD (test code = 47.0 fL 39-49.9 32781-6) RDW-CV (test code = 13.8 % 12-15.5 788-0) PLT (test code = See_Comment H [Automated 777-3) message] The sy stem which generated this result transmitted reference range : 166 - 358 10*3/ ?L. The reference r carlitos was not used to interpret this result as normal/abnormal . MPV (test code = 8.7 fL 9.5-12.9 L 03607-2) NRBC/100 WBC (test See_Comment [Automat ed code = 2925380965) message] The system which generated this result transmitted reference range : 0.0 - 10.0 /100 WBCs. The refer ence range was not u sed to interpret th is result as normal/abnormal . NRBC x10^3 (test code See_Comment [Auto mated = 2253483620) message] The s ystem which generated this result transmitted reference range : 10*3/?L. The reference range was not used to interpret this result as normal/abnormal . GRAN MAT (NEUT) % 70.9 % (test code = 770-8) IMM GRAN % (test code 7.30 % = 5338543059) LYMPH % (test code = 14.0 % 736-9) MONO % (test code = 5.9 % 5905-5) EOS % (test code = 1.6 % 713-8) BASO % (test code = 0.3 % 706-2) GRAN MAT x10^3(ANC) 8.22 10*3/uL 1.88-7.09 H (test code = 0236224739) IMM GRAN x10^3 (test 0.85 10*3/uL 0-0.06 H code = 8332397547) LYMPH x10^3 (test code 1.62 10*3/uL 1.32-3.29 = 731-0) MONO x10^3 (test code 0.68 10*3/uL 0.33-0.92 = 742-7) EOS x10^3 (test code = 0.19 10*3/uL 0.03-0.39 711-2) BASO x10^3 (test code 0.04 10*3/uL 0.01-0.07 = 704-7) Lab Interpretation Abnormal (test code = 32355-4) [facility] 18:39:00 Test Item Value Reference Range Interpretation Comments POCT GLU (test code = 9379835829) 90 mg/dL 70-110 Lab Interpretation (test code = Normal 05353-0) [facility] [id number] 13:53:38 Interval decrease in right-sided pleural effusion with improved aeration inthe right middle lobe. Preliminary Report Dictated by Resident: Paulo Dyson MD., have reviewed this study and agree [...] reviewed this study and agree with theabove report.[facility]2019-10-30 13:34:00 Test Item Value Reference Range Interpretation Comments POCT GLU (test code = 117 mg/dL 70-110 H Notifi ed Provider [id number]) Lab Interpretation (test Abnormal code = 00493-4) [facility] WITH [id number] 07:32:00 Test Item Value Reference Range Interpretation [...] RDW-SD (test code = 45.1 fL 39-49.9 83664-0) RDW-CV (test code = 13.7 % 12-15.5 788-0) PLT (test code = See_Comment H [Automated 777-3) message] The system which generated this result transmit mary kay reference range : 166 - 358 10*3/ ?L. The reference range was not u sed to interpret th is result as normal/abnormal . MPV (test code = 8.9 fL 9.5-12.9 L 61476-7) NRBC/100 WBC (test See_Comment [Automat ed code = 8653097465) message] The system which generated this result transmit mary kay reference range : 0.0 - 10.0 /100 WBCs. The reference range was not used to interpret this result as normal/abnormal . NRBC x10^3 (test code <0.01 See_Comment [Auto mated = 5484671619) message] The system which generated this result transmit mary kay reference range : 10*3/?L. The reference range was not used to interpret this result as normal/abnormal . GRAN MAT (NEUT) % 75.4 % (test code = 770-8) IMM GRAN % (test code 7.40 % = 4731119332) LYMPH % (test code = 11.7 % 736-9) MONO % (test code = 4.9 % 5905-5) EOS % (test code = 0.3 % 713-8) BASO % (test code = 0.3 % 706-2) GRAN MAT x10^3(ANC) 14.32 10*3/uL 1.88-7.09 H (test code = 3821781485) IMM GRAN x10^3 (test 1.41 10*3/uL 0-0.06 H code = 3142278657) LYMPH x10^3 (test code 2.23 10*3/uL 1.32-3.29 = 731-0) MONO x10^3 (test code 0.93 10*3/uL 0.33-0.92 H = 742-7) EOS x10^3 (test code = 0.05 10*3/uL 0.03-0.39 711-2) BASO x10^3 (test code 0.05 10*3/uL 0.01-0.07 = 704-7) TOXIC CHANGES (test Present A code = 803-7) Lab Interpretation Abnormal (test code = 86021-7) [facility] METABOLIC PANEL (NA, K, CL, CO2, GLUCOSE, BUN, CREATININE, CA)2019-10-30 07:30:00 Test Item Value Reference Range Interpretation Comments NA (test code = 136 mmol/L 135-145 5799820238) K (test code = 3.3 mmol/L 3.5-5 L 0466889286) CL (test code = 105 mmol/L 98-108 1328442210) CO2 TOTAL (test code = 28 mmol/L 23-31 6086136297) AGAP (test code = 2-16 1213561843) BUN (test code = 29 mg/dL 7-23 H 2206048481) GLUCOSE (test code = 103 mg/dL 70-110 5323666021) CREATININE (test code = 1.02 mg/dL 0.5-1.04 9916971515) CALCIUM (test code = 9.0 mg/dL 8.6-10.6 9469892405) eGFR Calculation mL/min/1.73m2 (Non-) (test code = 9509221556) eGFR Calculation mL/min/1.73m2 () (test code = 2817008758) SDAIE (test code = SADIE) Association of Glomerular [...] tests). Lab Interpretation Abnormal (test code = 47226-5) [facility] GLUCOSE (AUTOMATED)2019-10-30 02:06:00 Test Item Value Reference Range Interpretation Comments POCT GLU (test code = 1188209817) 177 mg/dL 70-110 H Lab Interpretation (test code = Abnormal 21539-4) [facility] GLUCOSE (AUTOMATED)2019-10-29 23:26:00 Test Item Value Reference Range Interpretation Comments POCT GLU (test code = 112 mg/dL 70-110 H Notifi ed Provider [id number]) Lab Interpretation (test Abnormal code = 90781-4) [facility] [id number] 22:18:00 Test Item Value Reference Range Interpretation Comments Case Report (test code Non-Gynecologic = 5025124377) Cytology ?Case: [id number] ?Authorizing Provider: ?Kendrick Eller, ? ? ?Collected: ? 10/28/2019 1218 ?Ordering Location: ? ? [facility] OR ? Received: ?10/28/2019 1551 ? Department ? Pathologist: ? Noe, Lucia, ? Specimen: ? ?PLEURAL, RIGHT, EFFUSION ? Final Diagnosis (test f1azxTFnOCFgo1goCFEpqJ code = 7803098785) FuZzEwMzNcZnRuYmpcdWMx JDafvzTlMZgvn8RmU1FfQa AwMFxhbnNpXGRlZmxhbmcx IZSdQQR8vrGbLAKqPFbgUC GtIIpvQz9ttPPcdYybVtIz KDBry0fpgpUUovbyuQm1r7 xlEVNtPbI1jMWbVItoE0tw afNxtMIvDCKsNFw1iX26SO QhqE8zvIYfMZcroqXpSRwh vqDeazXbAkl4XWNiK1iiFD SbMPSrO4SkKE7cLIXgVay6 BXE8IGG6lAglh0M2fJApzF OdkRbgAzYoWmUpFFRZi1Zn IXq7nYakI6NbABAkYpI5nY QgUGFyYWdyYXBoIEZvbnQ7 qZ74CFacfyA8wKRjj6Ags6 5fh816mB7tfSCbGZX4FPTz JBKhfORbALUuMQP0SKWxkY YsS1haPNoaUB0dcfgbCXD3 MFxtYXJndDcyMFxtYXJnYj CmtCLfFKEyvUzzZPryp174 MMI7FoWhPE1cY4Jwr7E3aB 9maXRcZGVmdGFiNzIwXGZv bd9vyDAaWDsan3LcDHY9fp M9wVVloFNlIZUsRQ11Ahif z0GkQkwrSOI4AUIzikRxm6 Ihp1hsIsRjvlQnY2tqJ4Zv ZHJoZWFkXHBnYnJkcmZvb3 Fwv3ZclVSupJu7t4zpCZGk RJPaxUppv4stPLQ2UTQjU4 T3lTVbe5arDOhdWQVksJM9 seGtUPAbfWXsD5UtzN0sKR ohXP0rroe3p5myGmKbZO5y gvrbj0nrACuxOXJlAQS6Iy ZaNCGrq7AxjvhsBeToa0Op tKTpRAkgL28ri803TSNkxp PuG3ofkZZhkcgenJZkqnfs MFxmczIwXHBhcmRccGxhaW 5cZjBcZnMyMFxwbGFpblxm MVxmczIwXGxhbmcxMDMzXG caJ5cjKfMsEUYofChoZQmz h9JuUHYlUAPkSWruuoTvFD UzIR0rQTSRXNYXOXerEstG PHJ4GIKHE7IYR0KFZSNPXO MgRkxVSURccGFyICAgICAg RJ0wOJFOFETeFV8HESOEVB BSUJ3JCPWMYeOEK73IXbZS HLlEDAOUNZ4HPA8SUP8QYW HEC4UOZIeKYLEsviMfYZNf YGHqKS3SRQ6YNDqXMuPISZ BDRUxMUyBJREVOVElGSUVE IFxwbGFpblxmMVxmczIwIC czK4PYSQPNDG6MJuLvBKOy bu85XBW6HoGrb2I0DCAoSi ImWPBlYY7pwXcyROMdYU2d HFPrE8ckgD5lgqy8HjIaPO NcRyE3ZGVijqD9Slr8TXJk XYsrp9jil9RqR8HftRWyhW j0m0pnMWCuKoZ6oWNiZZko L3gvgiItaREpQUNeYHh0nT dgFwCaLJMqx5bdxaApZlXs OSWkCREfRQZwzCyhjgj1vW 53TDOdlK4mcULvVOjlisTp QzE5GGlfFSPdPeC9QSZjhC OwEUFnP8qwOYBcAKolUVZa TMnzhLFjVFU4mCkyc0Z0jP VzaGVldHtcZjBcZnMyOCBO k0QjRVi1sXahM9ZjIRRsFk I4zADwVCXpBBngQXEaRKYr khD9iV09BBminuI0lFGmk1 Uol62tr933xV1nePDlAPS6 PXNvPOUooRWnEDMlAGY5RC ZnyRAuI9odHYKaRI5wyymo JEhnIRbhYBSxwNZ6PHPapS MeT1FbJMHtELrdUQFqdpl7 RzNkPw9qxTHczHnzOKamy6 jjb8xqwRKrMii6GDSmIpZd RcxxMGetf1Ntn4egYXOafj 5pGTC2lXHbdYdxx7C6qKAr TQNkmJYrpgPkBKRzKkT5UF uuTJ5gfx89FIWzUTD4xh4x bGNccGdicmRyaGVhZFxwZ2 MyQSYol054TBYqF6CeOXRl s4L3hhOjEjOmWPPpxVO9zd D2ENLcKYe5bVZqlhY8hwNy sSLtD3wefG7zOXVrMT1nmj tqp2nuGOybRRblAUKqqPO1 vhS2CQQhaLHxD3YtyA2lPH ZaMXrnVXSyoin9XcRwVt8x dGVyeTcyMFxzYmtwYWdlXH BnbmNvbnRccGduZGVjXHBs YWluXHBsYWluXGYwXGZzMj JrdPvosDopmU8zUgWcNoIb UZtbKD2iKCAoA4hlhBXuAD OdIGNzG0hhMoOoyJ5ncFye MVxjZjJcZnMyMFxwYXIgSS BoYXZlIHBlcnNvbmFsbHkg ybB5jOB1VJIdUWmnVXGpNL NwwPKxuw2zwBdeAWOcPI1j IGFncmVlIHdpdGggYWxsIH C5JNWwuRYyzLGrtQYeBOCm eSByZXNpZGVudHMsIGZlbG gft1Whg4ZopLS9pD7kn7id l3EeELWdxYN5SZ91wjG6cF 0qIPKhNE5gVKIpGW3faLVo lFRfFYElk38ngPaehjEtMJ BvcnQuXHBsYWluXGYyXGZz MjhcbGFuZzEwMzNcaGljaF agQncwNwSjOVGwZSyaV9ky NgYeVlJdMRqiWSF8mY== Final Diagnosis Comment l3moqDXpXPFiqVFkZbYoZL (test code = SoAHEvo8onHQWnlLOfWyZe 4580319688) MzNcZnRuYmpcdWMxXGRlZm Uyl6ouw811qNTzw8cwPHIq WrF8tSPoXJZbyLKlQ326TU FiSJcxm4ndz6JzZFFevZTb g3I2WWDUjoxsxLq5gXkqL6 0qm0S8FokyU5hrHDNiTGKq E1TeFT1uHQKzPjv3RAE2BB A8FTDqGPFiI4JvKP4gBRKn dGPgEBy2s6ciwKluUKRhXY K1r6orZBgojxAlTH6ygl4d pQr7l6siyxZaYGGiTNCwrN XGACAqP4McnTbxMz6gdZj5 sBxjFrieQWL5Gbq8AH4bfh 01pzl5cDfoZJAmayeiAlB3 RGjjNRNftqpgHWt0HLezQF KrdMJqFKIopPOeD1QvPYrf GY9ykwo6GuIjYF6lxpnuMW etJJUhCHZ4XvAwQEAex8Lv creuRuYylk0ofn08JQC2z7 MffZiqACW1ZXQ8GhQnDx3w fTQmXJBxYW0wTuYcmYHdTM Ycjy05rLcjVNxasoEnfK4k ZyZuPWLmrFSkGCYoGH0qeV OjCZLbwD3kvfrhQWFnDfNp wmjtMVUnvHjcqpVxNs7jsG lyUKV0EJjnC7dcrD4pYeQ5 YFzzB3ckeB0wIXs4FOifhW W9YFFgwJ2zEA9vgqwuh7ge DLC6NLbhIMNufoU9cxMxRD SksFRzV1GxzK49JsGolZZb Z8WcyS9fCVvgTPTgjvj6Du MiBe1fxZWfmEG2HJvlXvki YWdlXHBnbmNvbnRccGduZG VjXHBsYWluXHBsYWluXGYw TRVtOmJhwZorcWftdU5aYb RwCgDnPDyzTD6bILGhN2wq nAMoZAFmUIXqN6kbDpTipF 9jaFxmMVxmczIwIFNtZWFy QXTiv0vsLWUfnT2zDK43ZY 6irPJgv5HmnBbySKZfm74j pRO1AE46RMekwDcnTG9kkN VqGQ2oCa3rxCAxcOwkGJ22 IGNlbGwgaWRlbnRpZmllZC 5ccGFyfQ== Clinical Information Pleural effusion [J90] (test code = 0041843605) Gross Description (test t9anhVGqZZUtwAMkZqUxSR code = 2707117667) QiKEPks9epIWWdjBYjPmHj MzNcZnRuYmpcdWMxXGRlZm Zmz4ynv077aFMhk0ldXDQs FeJ9nDFqTRCacTBsR260ZN KfHUvyr5fqj5BzUVEqtFSs c3C6MTBYdnzimGu6cZuzK5 6ja0F3KbakA8wdWUNwDUnf IQScPYuivSBzQUV0IAIcLA E7XFsdksRkdvL9QVbjgYEq HtY2ASf5e5lsmXcvBDLbYM B2j2yoBDujdoVbJX4oir9v vTt5b9jcprRnDOFdMSRjvG XMYJYrE9YrmTtpWk3ffNs9 mNkrXlfhXEQ1Sql3JW0djq 37rsf0kHsmYDAmhbaeCsD2 ZNgwTQZeovacIAx0WDitXY TswPNsZPRyjIVqB0DzPWkx NB0xcqo1KcRnJF1tjgryXS ojGRGoDMS5EwRwZKBze1Aq hmxcSeJkez9hmq79YHP8g5 EyqFluVPQ4NPP6KlThLk9e nDLlZKPxXI7vMqCckZRbMO Oqvo20nVizAYijpqBedE9g XfTuQVHxsSLzIXJnSD1pwN JxPGGmsI1lvyxgUJOeGoOs mxrlKTWcuSkeukKfDn0cjM pcARB0FSlnI8jroZ1hPwH8 ZPqkX8zitH4lTUc6NBhreT N2FVFvcQ8tCG0kuszzn6ti HCS3GZyxLHTzdhH4mtMrPN XysJCjP4YegM75MsCyvAIt F9PuvI0vJMgiELHvkag5Nx SrRv9xbGEkwUN6WBcpNotn YWdlXHBnbmNvbnRccGduZG VjXHBsYWluXHBsYWluXGYw HXPgYmYczVedxTnbfJ7kOz BcZnMyMFxwbGFpblxmMFxm czIwIEExLiAgUExFVVJBLC EVUKxBJXvtEToYXgGRLY6G RVNJUyBGTFVJRFxwYXIgUm PsGYx3ZGHtXxAwn4jwuBPp KGMkCjjiNZ2vZYRhzRNbWC JlZCBmbHVpZCBccGFyXHBh vzJpaJxhcM7oZmZvXsHrZD xwbGFpblxmMVxmczIwIFBy ZXBhcmVkIFxwbGFpblxmMV xmczIwXGxhbmcxMDMzXGhp B5tyWgQyKLPsjAbiPTyao3 NoXGYxXGNmMVxmczIwXGx0 qyYhBCYgqIynoY6aDsBrAy MyMCAgXHBsYWluXGYxXGZz MjBcbGFuZzEwMzNcaGljaF opDYkiLbGyPPTvIQczS2wb PfItU8NhGVMzHvDkoUQyD0 tzk8kbAPShTXawmBLmpxkd MVxmczIwIChTbWVhclxwbG FpblxmMVxmczIwXGxhbmcx YPYaJMpjZ0voMbTeOVBojA huZOkdt7MgQJYtUUKmJTmb zrIdEQp1pzLmRJFwpkFtKM VlgNhdodB1YDNoRv4bYR6d o3KvyREcigIiZFCQCXEdia knb0sbh5Xbe3VptB2qVFjn sPbizP8oKmUkVoHvNDefBJ J9 Embedded Images (test code = 6761224704) [facility] GLUCOSE (AUTOMATED)2019-10-29 21:32:00 Test Item Value Reference Range Interpretation Comments POCT GLU (test code = 6192485885) 162 mg/dL 70-110 H Lab Interpretation (test code = Abnormal 83271-1) [facility] GLUCOSE (AUTOMATED)2019-10-29 21:32:00 Test Item Value Reference Range Interpretation Comments POCT GLU (test code = 0258403191) 119 mg/dL 70-110 H Lab Interpretation (test code = Abnormal 09622-6) [facility] GLUCOSE (AUTOMATED)2019-10-29 21:32:00 Test Item Value Reference Range Interpretation Comments POCT GLU (test code = 1933181813) 136 mg/dL 70-110 H Lab Interpretation (test code = Abnormal 83996-4) [facility] GLUCOSE (AUTOMATED)2019-10-29 21:32:00 Test Item Value Reference Range Interpretation Comments POCT GLU (test code = 9446815892) 133 mg/dL 70-110 H Lab Interpretation (test code = Abnormal 50091-5) [facility] GLUCOSE (AUTOMATED)2019-10-29 18:46:00 Test Item Value Reference Range Interpretation Comments POCT GLU (test code = 1611780815) 203 mg/dL 70-110 H Lab Interpretation (test code = Abnormal 70092-5) [id number] 16:27:00 Test Item Value Reference Range Interpretation Comments SPUTUM CULTURE 1+ Respiratory monster: (test code = 622-1) Commensal upper respiratory microorganisms only. Gram stain (test Occasional (Rare) code = 664-3) Epithelial cells SADIE (test code = Bacterial pathogens SADIE) associated with lower respiratory infections were not identified, which include Pseudomonas aeruginosa and Staphylococcus aureus (MRSA or MSSA). [facility] GLUCOSE (AUTOMATED)2019-10-29 15:09:00 Test Item Value Reference Range Interpretation Comments POCT GLU (test code = 1133114057) 159 mg/dL 70-110 H Lab Interpretation (test code = Abnormal 77150-4) [facility] - POD #[id number] 14:13:17EXAM: XR CHEST 1 VW HISTORY: indwelling [...] borderline normal. ? [facility], Radiant Results Inft User - 10/29/2019 9:14 AM CDTEXAM: XR CHEST 1 VWHISTORY: indwelling chest tube COMPARISON: None.FINDINGS:Two chest tubes drain the pleural space on the right, but the pleuraleffusion and associated compressive atelectasis (and infection?) areunchanged. A small pneumothorax is present in the right apex. The left lungis well expanded and clear except forminor subsegmental atelectasis, andthe heart and great vessels are borderline normal.[facility] [id number] 13:50:00 Test Item Value Reference Range Interpretation Comments Blood Culture-Aerobic Culture positive. No growth AA P revious (test code = 66557-5) See Blood prelim inary Culture Workup verified resu lt for additional was Culture I n information. Progress on 10/26/2019 at 12 01 CDTPrevious preliminary verified result was No growth a t 24 hours on 10/27/2019 at 09 01 CDT Blood Culture positive. No growth AA Previous Culture-Anaerobic See Blood preliminar y (test code = 65102-6) Culture Workup veri fied result for additional was Culture I n information. Progress on 10/26/2019 at 12 01 CDTPrevious preliminary verified result was No growth a t 24 hours on 10/27/2019 at 09 52 CDT Lab Interpretation Abnormal (test code = 74446-4) [facility] [id number] 13:11:00 Test Item Value Reference Range Interpretation Comments WBC (test code = See_Comment H [Automated 5990-2) message] The system which generated this result [...] RDW-SD (test code = 45.3 fL 39-49.9 36795-4) RDW-CV (test code = 13.8 % 12-15.5 788-0) PLT (test code = See_Comment H [Automated 777-3) message] The system which generated this result transmitted reference range : 166 - 358 10*3/?L. The reference range was not used to interpret this result as normal/abnormal . MPV (test code = 9.1 fL 9.5-12.9 L 19160-8) NRBC/100 WBC (test See_Comment [Automat ed code = 3916679801) message] The system which generated this result transmitted reference range : 0.0 - 10.0 /100 WBCs. The reference range was not used to interpret this result as normal/abnormal . NRBC x10^3 (test code <0.01 See_Comment [Auto mated = 8919264120) message] The system which generated this result transmitted reference range : 10*3/?L. The reference range was not used to interpret this result as normal/abnormal . GRAN MAT (NEUT) % 82.7 % (test code = 770-8) IMM GRAN % (test code 6.70 % = 7455133727) LYMPH % (test code = 5.5 % 736-9) MONO % (test code = 4.7 % 5905-5) EOS % (test code = 0.0 % 713-8) BASO % (test code = 0.4 % 706-2) GRAN MAT x10^3(ANC) 20.14 10*3/uL 1.88-7.09 H (test code = 7308415669) IMM GRAN x10^3 (test 1.64 10*3/uL 0-0.06 H code = 8322804715) LYMPH x10^3 (test 1.34 10*3/uL 1.32-3.29 code = 731-0) MONO x10^3 (test code 1.14 10*3/uL 0.33-0.92 H = 742-7) EOS x10^3 (test code <0.03 0.03-0.39 L = 711-2) BASO x10^3 (test code 0.10 10*3/uL 0.01-0.07 H = 704-7) BANDS (test code = MARKED INCREASED A 1990892981) Lab Interpretation Abnormal (test code = 51081-0) [facility] Metabolic Panel (NA, K, CL, CO2, GLUCOSE, BUN, CREATININE, CA)2019-10-29 12:37:00 Test Item Value Reference Range Interpretation Comments NA (test code = 134 mmol/L 135-145 L 8656440706) K (test code = 4.1 mmol/L 3.5-5 8885717496) CL (test code = 103 mmol/L 98-108 6142416597) CO2 TOTAL (test code = 24 mmol/L 23-31 2720379241) AGAP (test code = 2-16 9844638340) BUN (test code = 26 mg/dL 7-23 H 1587063704) GLUCOSE (test code = 150 mg/dL 70-110 H 8747408919) CREATININE (test code = 0.95 mg/dL 0.5-1.04 5508620443) CALCIUM (test code = 8.6 mg/dL 8.6-10.6 9059353508) eGFR Calculation mL/min/1.73m2 (Non-) (test code = 4870249997) eGFR Calculation mL/min/1.73m2 () (test code = 2869315735) SADIE (test code = SADIE) Association of [...] tests). Lab Interpretation Abnormal (test code = 36889-2) [facility] GLUCOSE (AUTOMATED)2019-10-29 06:09:00 Test Item Value Reference Range Interpretation Comments POCT GLU (test code = 0365069145) 255 mg/dL 70-110 H Lab Interpretation (test code = Abnormal 80772-2) [facility] GLUCOSE (AUTOMATED)2019-10-29 03:31:00 Test Item Value Reference Range Interpretation Comments POCT GLU (test code = 1733874632) 327 mg/dL 70-110 H Lab Interpretation (test code = Abnormal 30484-7) [facility] GLUCOSE (AUTOMATED)2019-10-29 02:23:00 Test Item Value Reference Range Interpretation Comments POCT GLU (test code = 2933717344) 317 mg/dL 70-110 H Lab Interpretation (test code = Abnormal 45394-6) [facility] With [id number] 21:59:00 Test Item Value Reference Range Interpretation [...] RDW-SD (test code = 43.7 fL 39-49.9 52704-9) RDW-CV (test code = 13.2 % 12-15.5 788-0) PLT (test code = See_Comment H [Automated 777-3) message] The system which generated this result transmit mary kay reference range : 166 - 358 10*3/ ?L. The reference range was not u sed to interpret th is result as normal/abnormal . MPV (test code = 8.8 fL 9.5-12.9 L 36288-6) NRBC/100 WBC (test See_Comment [Automat ed code = 4630420758) message] The system which generated this result transmit mary kay reference range : 0.0 - 10.0 /100 WBCs. The reference range was not used to interpret this result as normal/abnormal . NRBC x10^3 (test code <0.01 See_Comment [Auto mated = 3194872516) message] The system which generated this result transmit mary kay reference range : 10*3/?L. The reference range was not used to interpret this result as normal/abnormal . GRAN MAT (NEUT) % 84.0 % (test code = 770-8) IMM GRAN % (test code 6.70 % = 1865163573) LYMPH % (test code = 5.0 % 736-9) MONO % (test code = 3.5 % 5905-5) EOS % (test code = 0.3 % 713-8) BASO % (test code = 0.5 % 706-2) GRAN MAT x10^3(ANC) 14.52 10*3/uL 1.88-7.09 H (test code = 0466147737) IMM GRAN x10^3 (test 1.16 10*3/uL 0-0.06 H code = 4119575022) LYMPH x10^3 (test code 0.86 10*3/uL 1.32-3.29 L = 731-0) MONO x10^3 (test code 0.61 10*3/uL 0.33-0.92 = 742-7) EOS x10^3 (test code = 0.05 10*3/uL 0.03-0.39 711-2) BASO x10^3 (test code 0.08 10*3/uL 0.01-0.07 H = 704-7) MARKY CELLS (test code 2+ See_Comment A [Auto mated = 5247-5) message] The system which generated this result transmit mary kay reference range : (none). The reference range was not used to interpret this result as normal/abnormal . BANDS (test code = Increased A 6538063878) TOXIC CHANGES (test Present A code = 803-7) Lab Interpretation Abnormal (test code = 69226-5) [facility] 21:58:00 Test Item Value Reference Range Interpretation Comments POCT GLU (test code = 142 mg/dL 70-110 H Notifi ed Provider [id number]) Lab Interpretation (test Abnormal code = 96743-2) [facility] - POD #0 in [id number] 21:43:05 Interval placement of a surgical chest tube in the right lung withincreased lung aeration and decreased loculated right pleural fluid. Preliminary Report Dictated by Resident: Poppy Odom I, Magda Padilla MD., have reviewed this study and agree with theove report.XR CHEST 1 VW Comparison: Radiograph 10/28/2019, [...] this study and agree with theabove report. [facility] HospitalEre[facility] Spinae Plane Block - [id number] 19:55:08Ry Barakat MD ? ? 10/28/2019 ?2:56 [...] injection Medications Given: Regional:Bupiv 0.25% 20 mL [facility] Packed RBC (in units), 2 Units 2019-10-28 19:50:49 Test Item Value Reference Range Interpretation Comments Cross Match Result Compatible (test code = 4409) ISBT Blood Type Code (test code = 634791) Unit Blood Type (test O Pos code = 4410) Unit Number (test [id number] code = 4411) Blood Expiration Date & Time (test code = 781488) Status Information Issued (test code = 4412) Product Red Blood Cells Identification (test code = 4413) Product Code (test T2224S60 Performed at [facility] code = 4414) Laboratory Services - [facility] [address] [place] [address]Spdh Free: [phone] A No. [id number] [facility]Intubation2020-08-[facility] 18:03:32Mili Perry MD ? ? 10/28/2019 ?1:08 PMIntubationDate/Time: 10/28/2019 11:40 AMUrgency: elective Airway not difficult General Information and Staff Patient location during procedure: ORAnesthesiologist: Derrick Andres MDResident/GANG KNIFE FISH CHOPPER: Mili Perry MDOther anesthesia staff: Roshni, Jennifer MDPerformed: resident/GANG KNIFE FISH CHOPPER Indications and Patient ConditionIndications for airway management: [...] bronchus, then inflated both cuffs. Isolated with clamp.[facility] HospitalType and Screen - ONCE [id number] 17:00:52 Test Item Value Reference Range Interpretation Comments ABO & RH (test code O POSITIVE Performe d at [facility] = 20) [facility] [address] [place] [address]Ymkr Free: [phone] A No. [id number] IAT (test code = Negative Performed a t [facility] 1185) [facility] [address]Ddol Free: [phone] A No. [id number] [facility] HospitalArterial [id number] 16:20:30Mili Perry MD ? ? 10/28/2019 ?1:03 PM Arterial Line Date/Time: 10/28/2019 11:12 AMPerformed by: Ry Barakat MD Arterial Line Placement: ?Ultrasound- Guided: ultrasound guided ? ?Patient Location: ?Pre-op ?Indication: continuous blood pressure monitoring and blood sampling needed ?Staff: ?Supervising Anesthesiologist: ?Derrick Andres MD ?Resident: ?Barndin Wood MD ?Other: ?Mili Perry MDProcedure Detail: ?Catheter Size: ?20 gauge ?Catheter Length: ?1and 3/4 inch ?Catheter Type: ?Arrow ?Seldinger Technique?: Yes ? ?Laterality: ?Right ?Site: ?Radial artery ?Line Secured: ?Tegaderm and tape ?Preparation: ?Biopatch applied and guidewire removed intactE vents: ?Events: ?Patient tolerated procedure well with no complications and all wires accounted for [facility] HospitalCT THORAX WO [id number] 15:21:53 Worsening of the right loculated pleural [...] theright middle lobe suggestive of underlying pneumonia. [facility] HospitalXR CHEST 1 [id number] 13:14:47EXAM: XR CHEST 1 VW HISTORY: empyema COMPARISON: None. FINDINGS: The amount of fluid in the pleuralspace on the right is unchanged orperhaps slightly increased. The right upper lung and the left lungareclear and the heart and great vessels are normal. ? [facility], Radiant Results Inft User - 10/28/2019 8:15 AM CDTEXAM: XR CHEST 1 VWHISTORY: empyema COMPARISON: None.FINDINGS:The amount of fluid inthe pleural space on the right is unchanged orperhaps slightly increased. The right upper lung and the left lung areclear and the heart and great vessels are normal.[facility] GLUCOSE (AUTOMATED)2019-10-28 12:56:00 Test Item Value Reference Range Interpretation Comments POCT GLU (test code = 116 mg/dL 70-110 H Notifi ed Provider [id number]) Lab Interpretation (test Abnormal code = 76903-5) [facility] HospitalCOVID-19 (ID NOW RAPID TESTING)2019-10-28 03:19:00 Test Item Value Reference Range Interpretation Comments SARS-CoV-2 Rapid ID NOW Not Detected Not Detected (test code = 70221-4) SADIE (test code = SADIE) ID NOW COVID-19 Assay is an isothermal nucleic acid amplification test intended for the qualitative detection of nucleic acid from SARS-CoV-2 viral RNA in nasopharyngeal (ASSISTANT PROJECT ENGINEER) specimens. It is used under Emergency Use [...] indicated. Lab Interpretation Normal (test code = 77159-3) [facility] HospitalPNEUMOCOCCAL [id number] 01:30:00 Test Item Value Reference Range Interpretation Comments S. pneumoniae antigen (test code = Negative Negative 6503721892) Lab Interpretation (test code = Normal 76579-4) [facility] GLUCOSE (AUTOMATED)2019-10-28 00:27:00 Test Item Value Reference Range Interpretation Comments POCT GLU (test code = 8838863626) 166 mg/dL 70-110 H Lab Interpretation (test code = Abnormal 40805-1) [facility] HospitalGRAM POSITIVE BLOOD PATHOGENS DNA [id number] 23:46:00 Test Item Value Reference Range Interpretation Comments Coagulase Negative Positive Negative A Staphylococcus (test code = 94053-9) SADIE (test code = SADIE) Coagulase negative [...] contact the Antimicrobial Stewardship Program with questions.Pager: ?[phone] Testing included eleven identification and three resistance marker targets. Lab Interpretation Abnormal (test code = 66126-3) [facility] GLUCOSE (AUTOMATED)2019-10-27 23:34:00 Test Item Value Reference Range Interpretation Comments POCT GLU (test code = 1741147033) 116 mg/dL 70-110 H Lab Interpretation (test code = Abnormal 10003-9) [facility] GLUCOSE (AUTOMATED)2019-10-27 18:27:00 Test Item Value Reference Range Interpretation Comments POCT GLU (test code = 8287372595) 167 mg/dL 70-110 H Lab Interpretation (test code = Abnormal 10702-9) [facility] HospitalMRSA / MSSA SCREEN BY PCR, [id number] 15:58:00 Test Item Value Reference Range Interpretation Comments MSSA Screen by PCR, Nares (test code Negative Negative = 78769-7) MRSA/MSSA Positive? (test code = No No [id number]) Lab Interpretation (test code = Normal 23202-7) [facility] WITH [id number] 14:03:00 Test Item Value Reference Range Interpretation [...] RDW-SD (test code = 42.0 fL 39-49.9 90954-0) RDW-CV (test code = 12.4 % 12-15.5 788-0) PLT (test code = See_Comment H [Automated 777-3) message] The system which generated this result transmitted reference range : 166 - 358 10*3/?L. The reference range was not used to interpret this result as normal/abnormal . MPV (test code = 9.1 fL 9.5-12.9 L 30357-9) NRBC/100 WBC (test See_Comment [Automat ed code = 5338153915) message] The system which generated this result transmitted reference range : 0.0 - 10.0 /100 WBCs. The reference range was not used to interpret this result as normal/abnormal . NRBC x10^3 (test code <0.01 See_Comment [Auto mated = 7689888857) message] The system which generated this result transmitted reference range : 10*3/?L. The reference range was not used to interpret this result as normal/abnormal . GRAN MAT (NEUT) % 73.8 % (test code = 770-8) IMM GRAN % (test code 6.00 % = 0538153869) LYMPH % (test code = 7.8 % 736-9) MONO % (test code = 11.4 % 5905-5) EOS % (test code = 0.5 % 713-8) BASO % (test code = 0.5 % 706-2) GRAN MAT x10^3(ANC) 11.29 10*3/uL 1.88-7.09 H (test code = 2734070765) IMM GRAN x10^3 (test 0.92 10*3/uL 0-0.06 H code = 9623123636) LYMPH x10^3 (test 1.20 10*3/uL 1.32-3.29 L code = 731-0) MONO x10^3 (test code 1.74 10*3/uL 0.33-0.92 H = 742-7) EOS x10^3 (test code 0.08 10*3/uL 0.03-0.39 = 711-2) BASO x10^3 (test code 0.07 10*3/uL 0.01-0.07 = 704-7) POLYCHROMASIA (test 2+ See_Comment [Automa mary kay code = 78475-0) message] The system which generated this result transmitted reference range : 2+. The referen ce range was not used to interpr et this result as normal/abnormal . BANDS (test code = MARKED INCREASED A 5119676888) TOXIC CHANGES (test Present A code = 803-7) Lab Interpretation Abnormal (test code = 18646-0) [facility] METABOLIC PANEL (NA, K, CL, CO2, GLUCOSE, BUN, CREATININE, CA)2019-10-27 10:41:00 Test Item Value Reference Range Interpretation Comments NA (test code = 135 mmol/L 135-145 6249708073) K (test code = 3.6 mmol/L 3.5-5 2620439685) CL (test code = 103 mmol/L 98-108 0675021874) CO2 TOTAL (test code = 24 mmol/L 23-31 7150466641) AGAP (test code = 2-16 9889433190) BUN (test code = 25 mg/dL 7-23 H 2923431437) GLUCOSE (test code = 118 mg/dL 70-110 H 8210675987) CREATININE (test code = 1.12 mg/dL 0.5-1.04 H 6159754218) CALCIUM (test code = 8.3 mg/dL 8.6-10.6 L 2639268576) eGFR Calculation mL/min/1.73m2 (Non-) (test code = 5999195738) eGFR Calculation mL/min/1.73m2 () (test code = 9880861743) SADIE (test code = SADIE) Association of [...] tests). Lab Interpretation Abnormal (test code = 17403-6) [facility] HospitalPOCT GLUCOSE (AUTOMATED)2019-10-27 04:19:00 Test Item Value Reference Range Interpretation Comments POCT GLU (test code = 8060861306) 131 mg/dL 70-110 H Lab Interpretation (test code = Abnormal 48795-7) [facility] HospitalGLYCOSYLATED HEMOGLOBIN (A1C)2019-10-27 00:04:00 Test Item Value Reference Range Interpretation Comments HGB A1C (test code = 5.7 % 4-6 4548-4) SADIE (test code = SADIE) %A1C (NGSP) Interpretation (ADA)4.8-5.6 ? ? Normal or (Non-Diabetic Range)5.7-6.4 ? ? Increased Risk (Pre-Diabetic)>6.5 ?Diabetes Indicated Lab Interpretation Normal (test code = 22729-9) [facility]-REACTIVE [id number] 16:52:00 Test Item Value Reference Range Interpretation Comments CRP (test code = 3258428662) 29.2 mg/dL <0.8 H Lab Interpretation (test code = Abnormal 51546-0) [facility] METABOLIC PANEL (NA, K, CL, CO2, GLUCOSE, BUN, CREATININE, CA)2019-10-26 11:48:00 Test Item Value Reference Range Interpretation Comments NA (test code = 132 mmol/L 135-145 L 6098560908) K (test code = 4.1 mmol/L 3.5-5 9170490797) CL (test code = 104 mmol/L 98-108 3196848690) CO2 TOTAL (test code = 22 mmol/L 23-31 L 1496202997) AGAP (test code = 2-16 1222698817) BUN (test code = 34 mg/dL 7-23 H 6783029178) GLUCOSE (test code = 105 mg/dL 70-110 2774594201) CREATININE (test code = 1.32 mg/dL 0.5-1.04 H 2241902642) CALCIUM (test code = 8.4 mg/dL 8.6-10.6 L 2859719700) eGFR Calculation mL/min/1.73m2 (Non-) (test code = 6456900514) eGFR Calculation mL/min/1.73m2 () (test code = 6735441965) SADIE (test code = SADIE) Association of [...] tests). Lab Interpretation Abnormal (test code = 89746-2) [facility] HospitalPROCALCITONIN2020-08-15 11:45:00 Test Item Value Reference Range Interpretation Comments Procalcitonin (test 8.37 ng/mL <0.07 H code = 9893314681) SADIE (test code = SADIE) INTERPRETATION OF [...] lung abscess/empyema. For further information please refer to:[email or web address] Lab Interpretation Abnormal (test code = 40829-5) [facility] WITH [id number] 09:40:00 Test Item Value Reference Range Interpretation [...] RDW-SD (test code = 40.1 fL 39-49.9 86843-7) RDW-CV (test code = 12.0 % 12-15.5 788-0) PLT (test code = See_Comment H [Automated 777-3) message] The system which generated this result transmit mary kay reference range : 166 - 358 10*3/ ?L. The reference range was not u sed to interpret th is result as normal/abnormal . MPV (test code = 9.1 fL 9.5-12.9 L 18740-9) NRBC/100 WBC (test See_Comment [Automat ed code = 3038481109) message] The system which generated this result transmit mary kay reference range : 0.0 - 10.0 /100 WBCs. The reference range was not used to interpret this result as normal/abnormal . NRBC x10^3 (test code <0.01 See_Comment [Auto mated = 5267280190) message] The system which generated this result transmit mary kay reference range : 10*3/?L. The reference range was not used to interpret this result as normal/abnormal . GRAN MAT (NEUT) % 73.9 % (test code = 770-8) IMM GRAN % (test code 4.10 % = 7411507057) LYMPH % (test code = 11.2 % 736-9) MONO % (test code = 10.0 % 5905-5) EOS % (test code = 0.5 % 713-8) BASO % (test code = 0.3 % 706-2) GRAN MAT x10^3(ANC) 11.41 10*3/uL 1.88-7.09 H (test code = 8395792537) IMM GRAN x10^3 (test 0.63 10*3/uL 0-0.06 H code = 3587035708) LYMPH x10^3 (test code 1.73 10*3/uL 1.32-3.29 = 731-0) MONO x10^3 (test code 1.55 10*3/uL 0.33-0.92 H = 742-7) EOS x10^3 (test code = 0.08 10*3/uL 0.03-0.39 711-2) BASO x10^3 (test code 0.05 10*3/uL 0.01-0.07 = 704-7) Lab Interpretation Abnormal (test code = 13665-4) [facility] HospitalCT LUMBAR SPINE WO [id number] 05:58:44 No acute fracture or traumatic malalignment [...] bulge and L2 vertebral body inferior endplate Schmorl'snode.[facility] HospitalSEDIMENTATION RATE 2019-10-26 04:54:00 Test Item Value Reference Range Interpretation Comments ESR (test code = >120 See_Comment H [Automated message] 2137309069) The system [employer]iv[employer] generated this result transmitted ref erence range: 0 - 20 m m/HR. The reference r carlitos was not used to interpret this result as normal/abnor mal. Lab Interpretation (test Abnormal code = 51774-2) [facility] HospitalURINALYSIS2020-08-14 18:54:00 Test Item Value Reference Range Interpretation Comments APPEARANCE (test code = Hazy Clear A 7096025828) COLOR (test code = Teresita Yellow A 1614962639) PH (test code = 4.8-8.0 9193195172) SP GRAVITY (test code = 1.003-1.030 4894307375) GLU U QUAL (test code = Normal Normal 0317067189) BLOOD (test code = 3+ Negative A 4463555789) KETONES (test code = Negative Negative 9626475211) PROTEIN (test code = Negative Negative 2887-8) UROBILIN (test code = 4.0 mg/dL Normal A 1376373992) BILIRUBIN (test code = Negative Negative 6243734809) NITRITE (test code = Negative Negative 6352467880) LEUK ALYSHA (test code = Negative Negative 3773687556) RBC/HPF (test code = >182 See_Comment H [Autom ated message] 6817839787) The system [employer] generated this result transmit mary kay reference range : 0 - 3 HPF. The refe rence range was not u sed to interpret th is result as normal/abnormal . WBC/HPF (test code = See_Comment H [Autom ated message] 2112467172) The system [employer] generated this result transmit mary kay reference range : 0 - 5 HPF. The refe rence range was not u sed to interpret th is result as normal/abnormal . BACTERIA (test code = Negative Negative 5361173494) MUCOUS (test code = Slight Negative LPF A 3854005008) SQ EPITH (test code = HPF 4629000480) HYAL CAST (test code = See_Comment [Aut omated message] 8969562205) The system [employer] generated this result transmit mary kay reference range : <=2 LPF. The refere nce range was not u sed to interpret th is result as normal/abnormal . Lab Interpretation (test Abnormal code = 01320-7) [facility] HospitalCREATININE, URINE [id number] 18:42:00 Test Item Value Reference Range Interpretation Comments CREAT U (test code = 1911749735) 106.0 mg/dL [facility] HospitalPROTEIN CREAT RATIO URINE [id number] 18:39:00 Test Item Value Reference Range Interpretation Comments T. PROT U (test code = 2888-6) 21 mg/dL CREAT U (test code = 9293878504) 106.4 mg/dL Protein/Creatinine Ratio Urine 0.0-2.0 (test code = 0503955659) [facility] HospitalSODIUM, URINE [id number] 18:37:00 Test Item Value Reference Range Interpretation Comments NA URINE (test code = 4133555788) 7 mmol/L [facility]XR [facility] 1 [id number] 16:31:45EXAM: XR CHEST 1 VW HISTORY: chest pain COMPARISON: None. FINDINGS: A large dense mass-like opacityin the right lower lung may be a collectionof loculated pleural fluid, consolidated lung, or a neoplasm. The rightupper lung and the left lung are clear. The heart is upper limit of normalin size. CT is recommended for further evaluation. ? [facility], Radiant Results Inft User - 10/25/2019 11:32 AM CDT EXAM: XR CHEST 1 VWHISTORY: chest pain COMPARISON: None.FINDINGS:A large dense mass-like opacity in the right lower lung may be a collectionof loculated pleural fluid, consolidated lung, or a neoplasm.The rightupper lung and the left lung are clear. The heart is upper limit of normalin size.CT is recommended for further evaluation.[facility] HospitalCBC WITH [id number] 13:48:00 Test Item Value Reference Range Interpretation Comments WBC (test code = See_Comment H [Automated 4090-2) message] The system which generated this result transmitted reference range : 4.30 - 11.10 10*3/?L. The reference range was not used to interpret this result as normal/abnormal . RBC (test code = See_Comment L [Automated 379-8) message] The system which generated this result [...] RDW-SD (test code = 39.0 fL 39-49.9 23846-8) RDW-CV (test code = 12.0 % 12-15.5 788-0) PLT (test code = See_Comment H [Automated 777-3) message] The system which generated this result transmitted reference range : 166 - 358 10*3/?L. The reference range was not used to interpret this result as normal/abnormal . MPV (test code = 9.1 fL 9.5-12.9 L 18839-8) NRBC/100 WBC (test See_Comment [Automat ed code = 8505006629) message] The system which generated this result transmitted reference range : 0.0 - 10.0 /100 WBCs. The reference range was not used to interpret this result as normal/abnormal . NRBC x10^3 (test code <0.01 See_Comment [Auto mated = 0898284102) message] The system which generated this result transmitted reference range : 10*3/?L. The reference range was not used to interpret this result as normal/abnormal . GRAN MAT (NEUT) % 77.5 % (test code = 770-8) IMM GRAN % (test code 2.70 % = 3539326537) LYMPH % (test code = 8.0 % 736-9) MONO % (test code = 10.2 % 5905-5) EOS % (test code = 1.3 % 713-8) BASO % (test code = 0.3 % 706-2) GRAN MAT x10^3(ANC) 11.00 10*3/uL 1.88-7.09 H (test code = 8442541328) IMM GRAN x10^3 (test 0.38 10*3/uL 0-0.06 H code = 1103037220) LYMPH x10^3 (test 1.13 10*3/uL 1.32-3.29 L code = 731-0) MONO x10^3 (test code 1.44 10*3/uL 0.33-0.92 H = 742-7) EOS x10^3 (test code 0.19 10*3/uL 0.03-0.39 = 711-2) BASO x10^3 (test code 0.04 10*3/uL 0.01-0.07 = 704-7) BANDS (test code = MARKED INCREASED A 9469905167) Lab Interpretation Abnormal (test code = 54905-3) [facility] METABOLIC PANEL (NA, K, CL, CO2, GLUCOSE, BUN, CREATININE, CA)2019-10-25 11:39:00 Test Item Value Reference Range Interpretation Comments NA (test code = 129 mmol/L 135-145 L 7445452518) K (test code = 4.0 mmol/L 3.5-5 5591883873) CL (test code = 100 mmol/L 98-108 0835512893) CO2 TOTAL (test code = 20 mmol/L 23-31 L 0774476838) AGAP (test code = 2-16 8930388176) BUN (test code = 40 mg/dL 7-23 H 7354500602) GLUCOSE (test code = 111 mg/dL 70-110 H 4183920462) CREATININE (test code = 1.78 mg/dL 0.5-1.04 H 2795148084) CALCIUM (test code = 8.8 mg/dL 8.6-10.6 5018760909) eGFR Calculation mL/min/1.73m2 (Non-) (test code = 2036238966) eGFR Calculation mL/min/1.73m2 () (test code = 6386239667) SADIE (test code = SADIE) Association of [...] tests). Lab Interpretation Abnormal (test code = 55838-9) [facility]XR [facility] 2+ VW [id number] 19:29:15 Acromioclavicular joint osteoarthrosis. No acute fracture. EXAM: XR SHOULDER 2+ VW RIGHT HISTORY: pain COMPARISON: None FINDINGS: Imaging of the right shoulder demonstrates moderate acromioclavicular jointspace narrowing with marginal osteophytes. Lower cervical spineuncovertebral and facet arthropathy with spondylosis are partiallyvisualized. ?A right pleural effusion is suspected with elevation of theright hemidiaphragm with fluid tracking into the minor fissure. [facility], Radiant Results Inft User- 10/23/2019 2:30 PM CDTEXAM:XR SHOULDER 2+ VW RIGHTHISTORY:pain COMPARISON:NoneFINDINGS: Imaging of the right shoulder demonstrates moderate acromioclavicular jointspace narrowing with marginal osteophytes. Lower cervical spineuncovertebral and facet arthropathy with spondylosis are partiallyvisualized. A right pleural effusion is suspected with elevation of theright hemidiaphragm with fluid tracking into the minor fissure.IMPRESSIONAcromioclavicular joint osteoarthrosis.No acute fracture. [facility] HospitalNM LUNG PERFUSION [id number] 19:39:06 No imaging evidence for pulmonary embolic [...] perfusion defects to suspect pulmonary embolic diseaseseen. [facility], Radiant Results Inft User - 10/22/2019 2:40 [...] pulmonary embolic diseaseseen.IMPRESSIONNo imagingevidence for pulmonary embolic disease.[facility] HospitalN-TERMINAL [id number] 13:45:00 Test Item Value Reference Range Interpretation Comments NT-proBNP (test code 155 pg/mL See_Comment H [Autom ated = 2755099229) message] The system which generated this result transmitted reference range : <=125. The reference range was not used to interpret this result as normal/abnormal . SADIE (test code = SADIE) Biotin has been reported to cause a negative bias, interpret results relative to patient's use of biotin. Lab Interpretation Abnormal (test code = 17768-4) [facility] HospitalMAGNESIUM2020-08-11 13:36:00 Test Item Value Reference Range Interpretation Comments MAGNESIUM (test code = 4803589676) 1.7 mg/dL 1.7-2.4 Lab Interpretation (test code = Normal 49945-4) [facility] HospitalTROPONIN [id number] 13:20:00 Test Item Value Reference Range Interpretation Comments TROPONIN I (test <0.012 See_Comment [Automated code = 3130065084) message] The system which generated this result [...] ? Lab Interpretation Normal (test code = 68639-2) [facility] HospitalaPTT2020-08-11 12:08:00 Test Item Value Reference Range Interpretation Comments APTT Patient (test See_Comment H [Automat ed code = 3173-2) message] The system which generated this result transmitted reference range : 23 - 38 Seconds . The reference range was not used to interpr et this result as normal/abnormal . SADIE (test code = SADIE) The [facility] patient population mean normal value for aPTT is 30 seconds. Lab Interpretation Abnormal (test code = 27065-2) [facility] HospitalBasi Metabolic Panel (NA, K, CL, CO2, GLUCOSE, BUN, CREATININE, CA)2019-10-22 10:29:00 Test Item Value Reference Range Interpretation Comments NA (test code = 135 mmol/L 135-145 5396744396) K (test code = 3.7 mmol/L 3.5-5 8976412481) CL (test code = 105 mmol/L 98-108 8490267707) CO2 TOTAL (test code = 21 mmol/L 23-31 L 3841593799) AGAP (test code = 2-16 3843374628) BUN (test code = 22 mg/dL 7-23 0043038592) GLUCOSE (test code = 169 mg/dL 70-110 H 5798612426) CREATININE (test code = 1.16 mg/dL 0.5-1.04 H 6191418645) CALCIUM (test code = 9.4 mg/dL 8.6-10.6 4974092059) eGFR Calculation mL/min/1.73m2 (Non-) (test code = 6321311859) eGFR Calculation mL/min/1.73m2 () (test code = 1397050284) SADIE (test code = SADIE) Association of [...] tests). Lab Interpretation Abnormal (test code = 47963-2) [facility] with [id number] 10:14:00 Test Item Value Reference Range Interpretation Comments WBC (test code = See_Comment [Automated 7590-2) message] The sy stem which generated this result transmitted reference range : 4.30 - 11.10 10*3/?L. The reference range was not used to interpret this result as normal/abnormal . RBC (test code = See_Comment L [Automated 909-8) message] The sy stem which generated this [...] RDW-SD (test code = 41.8 fL 39-49.9 08273-8) RDW-CV (test code = 12.6 % 12-15.5 788-0) PLT (test code = See_Comment H [Automated 777-3) message] The sy stem which generated this result transmitted reference range : 166 - 358 10*3/ ?L. The reference r carlitos was not used to interpret this result as normal/abnormal . MPV (test code = 9.4 fL 9.5-12.9 L 01295-3) NRBC/100 WBC (test See_Comment [Automat ed code = 0997655319) message] The system which generated this result transmitted reference range : 0.0 - 10.0 /100 WBCs. The refer ence range was not u sed to interpret th is result as normal/abnormal . NRBC x10^3 (test code <0.01 See_Comment [Auto mated = 0751860830) message] The s ystem which generated this result transmitted reference range : 10*3/?L. The reference range was not used to interpret this result as normal/abnormal . GRAN MAT (NEUT) % 76.0 % (test code = 770-8) IMM GRAN % (test code 0.60 % = 6191448211) LYMPH % (test code = 12.4 % 736-9) MONO % (test code = 9.5 % 5905-5) EOS % (test code = 1.3 % 713-8) BASO % (test code = 0.2 % 706-2) GRAN MAT x10^3(ANC) 7.08 10*3/uL 1.88-7.09 (test code = 9611524309) IMM GRAN x10^3 (test 0.06 10*3/uL 0-0.06 code = 3159248856) LYMPH x10^3 (test code 1.15 10*3/uL 1.32-3.29 L = 731-0) MONO x10^3 (test code 0.88 10*3/uL 0.33-0.92 = 742-7) EOS x10^3 (test code = 0.12 10*3/uL 0.03-0.39 711-2) BASO x10^3 (test code <0.03 0.01-0.07 = 704-7) Lab Interpretation Abnormal (test code = 88874-0) [facility]URINALYSIS2020-[facility]-11 07:34:00 Test Item Value Reference Range Interpretation Comments APPEARANCE (test code = Hazy Clear A 4928437928) COLOR (test code = Teresita Yellow A 2642855948) PH (test code = 4.8-8.0 1135400435) SP GRAVITY (test code = 1.003-1.030 7198771740) GLU U QUAL (test code = Normal Normal 7995789729) BLOOD (test code = 3+ Negative A 2819456746) KETONES (test code = Negative Negative 9541180846) PROTEIN (test code = 30 mg/dL Negative A 2887-8) UROBILIN (test code = 4.0 mg/dL Normal A [id number]) BILIRUBIN (test code = 2 mg/dL Negative A 6653653537) NITRITE (test code = Negative Negative 9409333951) LEUK ALYSHA (test code = 75/uL Negative A 6658641554) RBC/HPF (test code = See_Comment H [Autom ated message] 5449272218) The system Tivra generated this result transmit mary aky reference range : 0 - 3 HPF. The refe rence range was not u sed to interpret th is result as normal/abnormal . WBC/HPF (test code = See_Comment H [Autom ated message] 4658687546) The system Tivra generated this result transmit mary kay reference range : 0 - 5 HPF. The refe rence range was not u sed to interpret th is result as normal/abnormal . BACTERIA (test code = Moderate Negative A 5378257560) MUCOUS (test code = Moderate Negative LPF A 4423683007) SQ EPITH (test code = HPF 4688095134) HYAL CAST (test code = See_Comment H [Aut omated message] 7751800577) The system Tivra generated this result transmit mary kay reference range : <=2 LPF. The refere nce range was not u sed to interpret th is result as normal/abnormal . Ictotest (test code = Positive 8122697255) GRAN CASTS (test code = See_Comment H [Au tomated message] 0082600315) The system Tivra generated this result transmit mary kay reference range : <=1 LPF. The refere nce range was not u sed to interpret th is result as normal/abnormal . Lab Interpretation (test Abnormal code = 03352-3) [facility] [id number] 00:28:00 Test Item Value Reference Range Interpretation Comments PROTIME PATIENT (test See_Comment [Auto mated message] code = 5964-2) The system Yammer generated this result transmitted ref erence range: 12.0 - 1 4.7 Seconds. The re ference range was not u sed to interpret this result as normal/abnor mal. INR (test code = 6301-6) Nor mal INR <1.1; Warfarin Therap eutic range 2.0 to 3. 0 or 2.5 to 3.5, dep ending upon the indica tions. Lab Interpretation (test Normal code = 55639-4) [facility] [id number] 00:11:00 Test Item Value Reference Range Interpretation Comments TROPONIN I (test <0.012 See_Comment [Automated code = 9226478433) message] The system which generated this result [...] ? Lab Interpretation Normal (test code = 68409-1) [facility] [id number] 21:41:45 Small to moderate loculated pleural effusions [...] changes.No left lung lesion is seenHepatic steatosis [facility]COM. [facility]OLIC PANEL ([id number])2019-10-21 18:32:00 Test Item Value Reference Range Interpretation Comments NA (test code = 139 mmol/L 135-145 2596051483) K (test code = 3.5 mmol/L 3.5-5 5988010342) CL (test code = 105 mmol/L 98-108 2646650857) CO2 TOTAL (test code = 23 mmol/L 23-31 6608065155) AGAP (test code = 2-16 2888081060) BUN (test code = 21 mg/dL 7-23 4994613443) GLUCOSE (test code = 178 mg/dL 70-110 H 7747326529) CREATININE (test code = 1.01 mg/dL 0.5-1.04 8636858648) TOTAL BILI (test code = 1.4 mg/dL 0.1-1.1 H 0881994196) CALCIUM (test code = 9.8 mg/dL 8.6-10.6 9862130349) T PROTEIN (test code = 7.2 g/dL 6.3-8.2 2979749703) ALBUMIN (test code = 3.8 g/dL 3.5-5 1908158204) ALK PHOS (test code = 82 U/L 34-122 8524036838) ALTv (test code = 38 U/L 5-35 H 1742-6) AST(SGOT) (test code = 48 U/L 13-40 H 2981782179) eGFR Calculation mL/min/1.73m2 (Non-) (test code = 3935724429) eGFR Calculation mL/min/1.73m2 () (test code = 6258244662) SADIE (test code = SADIE) Association of [...] tests). Lab Interpretation Abnormal (test code = 12696-2) [id number] 18:28:00 Test Item Value Reference Interpretation Comments Range D-DIMER (test code = See_Comment H [Autom ated 3070935993) message] The system which generated this result [...] diagnosis. Lab Interpretation Abnormal (test code = 64483-8) [facility] HospitalXR CHEST 1 VW [id number] 18:27:47 Suspected patchy airspace opacity in the left lingula. A lateral chestx-ray can be obtained. Disclaimer: Generally, the findings on chest imaging in COVID-19 are notspecific, and overlap with other infections, including influenza, H1N1,SARS and MERS.According to the Centers for Disease Control (CDC)and recent statement ofthe [employer], viral testing remains the [...] Disease Control (CDC) and recent statement ofthe [employer], viral testing remains the only specificmethod of diagnosis. Confirmation with the viral test is required, even ifradiologic findings are suggestive of COVID- [address]COVID[facility] (ID NOW RAPID TESTING)2019-10-21 18:10:00 Test Item Value Reference Range Interpretation Comments SARS-CoV-2 Rapid ID NOW Not Detected Not Detected (test code = 35394-1) SADIE (test code = SADIE) ID NOW COVID-19 Assay is an isothermal nucleic acid amplification test intended for the qualitative detection of nucleic acid from SARS-CoV-2 viral RNA in nasopharyngeal ([employer]SIST[employer]ER) specimens. It is used under Emergency Use [...] indicated. Lab Interpretation Normal (test code = 64025-5) [facility] WITH [id number] 18:03:00 Test Item Value Reference Range Interpretation [...] RDW-SD (test code = 40.8 fL 39-49.9 39776-7) RDW-CV (test code = 12.3 % 12-15.5 788-0) PLT (test code = See_Comment H [Automated 777-3) message] The sy stem which generated this result transmitted reference range : 166 - 358 10*3/ ?L. The reference r carlitos was not used to interpret this result as normal/abnormal . MPV (test code = 9.1 fL 9.5-12.9 L 48615-0) NRBC/100 WBC (test See_Comment [Automat ed code = 3727795664) message] The system which generated this result transmitted reference range : 0.0 - 10.0 /100 WBCs. The refer ence range was not u sed to interpret th is result as normal/abnormal . NRBC x10^3 (test code <0.01 See_Comment [Auto mated = 4271928713) message] The s ystem which generated this result transmitted reference range : 10*3/?L. The reference range was not used to interpret this result as normal/abnormal . GRAN MAT (NEUT) % 76.8 % (test code = 770-8) IMM GRAN % (test code 0.50 % = 9729336667) LYMPH % (test code = 12.1 % 736-9) MONO % (test code = 9.7 % 5905-5) EOS % (test code = 0.5 % 713-8) BASO % (test code = 0.4 % 706-2) GRAN MAT x10^3(ANC) 6.49 10*3/uL 1.88-7.09 (test code = 7164932696) IMM GRAN x10^3 (test 0.04 10*3/uL 0-0.06 code = 7700877038) LYMPH x10^3 (test code 1.02 10*3/uL 1.32-3.29 L = 731-0) MONO x10^3 (test code 0.82 10*3/uL 0.33-0.92 = 742-7) EOS x10^3 (test code = 0.04 10*3/uL 0.03-0.39 711-2) BASO x10^3 (test code 0.03 10*3/uL 0.01-0.07 = 704-7) Lab Interpretation Abnormal (test code = 76007-6) [facility]
[2021-08-23 22:46] LABS: Absolute Lymphocytes (CBC) 2.1 K/uL (0.7-4.9); Lymphocytes % 30.9 % (15.3-44.8); MPV 7.4 fL (7.6-11.3)
[2021-08-23 22:57] LABS: Albumin 3.3 g/dL (3.4-5.0); Bilirubin Total 0.2 mg/dL (0.2-1.0); Potassium 3.7 mmol/L (3.5-5.1); Protein, Total 6.7 g/dL (6.4-8.2)
[2021-08-23] MEDS ORDERED: FENTANYL CITR 100 MCG/2 ML ONE (23:16)
[2021-08-23] MEDS ORDERED: LIDOCAINE 4% PATCH ONE (23:16)
--- NOTE | 2021-08-24 00:37 | ER ---
Nurse's Notes [facility] Name: Eileen Hernandez Age: 65 yrs Sex: Female : 1955 Arrival Date: 08/23/2021 Time: 20:40 Bed 13 Private MD: Diagnosis: Low back pain;Radiculopathy, lumbar region Presentation: 08/23 21:11 Chief complaint: Patient states: she is having low back pain since yesterday her legs bb are feeling weak. Coronavirus screen: At this time, the client does not indicate any symptoms associated with coronavirus-19. Ebola Screen: No symptoms or risks identified at this time. Initial Sepsis Screen: Does the patient meet any 2 criteria? No. Patient's initial sepsis screen is negative. Does the patient have a suspected source of infection? No. Patient's initial sepsis screen is negative. Risk Assessment: Do you want to hurt yourself or someone else? Patient reports no desire to harm self or others. Onset of symptoms was August 22, 2021. 21:11 Method Of Arrival: Wheelchair bb 21:11 Acuity: SRIRAM 3 bb Triage Assessment: 21:14 General: Appears uncomfortable, Behavior is calm, cooperative. Pain: Complains of pain bb in back Pain does not radiate. Pain currently is 9 out of 10 on a pain scale. Neuro: Level of Consciousness is awake, alert, obeys commands, Oriented to person, place, time, situation. Cardiovascular: Capillary refill < 3 seconds Patient's skin is warm and dry. Respiratory: Respiratory effort is unlabored, Respiratory pattern is regular. GI: No signs and/or symptoms were reported involving the gastrointestinal system. Derm: Skin is pink, warm \T\ dry. Musculoskeletal: Circulation, motion, and sensation intact. Reports pain in back weakness in legs. Historical: - Allergies: 21:14 Codeine; bb 21:14 Ibuprofen; bb 21:14 Naproxen; bb 21:14 Red Dye; bb - PMHx: 21:14 diabetes mellitus; Hypercholesterolemia; Hypertensive disorder; Pancreatitis; bb - PSHx: 21:14 Appendectomy; Cholecystectomy; mass removed from left breast, noncancerous; partial bb removal of pancreas; Tonsillectomy; - Immunization history:: Moderna x 3. - Social history:: Smoking status: Patient denies any tobacco usage or history of. Screenin:40 Abuse screen: Denies threats or abuse. Nutritional screening: No deficits noted. bb Tuberculosis screening: No symptoms or risk factors identified. Fall Risk None identified. Assessment: 21:40 Reassessment: No changes from previously documented assessment. Patient is alert, bb oriented x 3, equal unlabored respirations, skin warm/dry/pink. see triage assessment. 08/24 01:07 Reassessment: Patient and/or family updated on plan of care and expected duration. Pain vc1 level reassessed. Patient is alert, oriented x 3, equal unlabored respirations, skin warm/dry/pink. Patient states feeling better. Patient states symptoms have improved. Vital Signs: 08/23 21:11 BP 172 / 57; Pulse 65; Resp 18; Temp 96.9(TE); Pulse Ox 100% on R/A; Weight 54.43 kg; bb Height 4 ft. 9 in. (144.78 cm); Pain 9/10; 21:11 Body Mass Index 25.97 (54.43 kg, 144.78 cm) ED Course: 20:40 Patient arrived in ED. ja2 21:14 Triage completed. bb 21:14 Arm band placed on Patient placed in waiting room, Patient notified of wait time. bb 21:18 Juan Sanchez PA is PHCP. cp 21:18 Juan Espino MD is Attending Physician. cp 21:40 Patient has correct armband on for positive identification. Bed in low position. Call bb light in reach. Side rails up X 1. 23:40 Stone Protocol In Process Unspecified. EDMS 08/24 01:06 No provider procedures requiring assistance completed. IV discontinued, intact, vc1 bleeding controlled, No redness/swelling at site. Pressure dressing applied. Administered Medications: 08/23 23:16 Drug: Lidoderm Patch 5 % (700 mg/patch) 1 patches Route: Topical; Site: affected area; bb 23:16 Drug: fentaNYL (PF) 25 mcg Route: IVP; Site: left wrist; bb 08/24 00:00 Follow up: Response: No adverse reaction; Pain is decreased vc1 Medication: 01:07 VIS not applicable for this client. vc1 Outcome: 00:37 Discharge ordered by . cp 01:07 Discharged to home via wheelchair, with significant other. vc1 01:07 Condition: good 01:07 Discharge instructions given to patient, Instructed on discharge instructions, follow up and referral plans. medication usage, Demonstrated understanding of instructions, follow-up care, medications, Prescriptions given X 3. 01:08 Patient left the ED. vc1 Signatures: Dispatcher [employer] Chelita Fish RN RN bb Juan Sanchez PA PA cp Alexander, Jessica ja2 Calcote, Vanessa, RN RN vc1
--- NOTE | 2021-08-24 00:37 | EDPHYS ---
Physician Documentation [facility] Name: Eileen Hernandez Age: 65 yrs Sex: Female : 1955 Arrival Date: 08/23/2021 Time: 20:40 Bed 13 Private MD: ED Physician Juan Espino HPI: 08/23 21:20 This 65 yrs old Female presents to ER via Wheelchair with complaints of Low cp Back Pain. 21:20 The patient presents with pain that is acute, with no known mechanism of injury. The cp symptoms are located in the low back. 21:20 The pain radiates to the back of left leg and back of right leg. cp 21:20 The problem was sustained from unknown cause. Onset: The symptoms/episode cp began/occurred yesterday, and became worse today. Associated signs and symptoms: Pertinent positives: diarrhea yesterday and this morning, Pertinent negatives: abdominal pain, chest pain, dysuria, fever, incontinence, numbness, tingling, urinary retention. Severity of symptoms: in the emergency department the symptoms are unchanged, despite home interventions. Historical: - Allergies: 21:14 Codeine; bb 21:14 Ibuprofen; bb 21:14 Naproxen; bb 21:14 Red Dye; bb - PMHx: 21:14 diabetes mellitus; Hypercholesterolemia; Hypertensive disorder; Pancreatitis; bb - PSHx: 21:14 Appendectomy; Cholecystectomy; mass removed from left breast, noncancerous; partial bb removal of pancreas; Tonsillectomy; - Immunization history:: Moderna x 3. - Social history:: Smoking status: Patient denies any tobacco usage or history of. ROS: 21:25 Constitutional: Negative for body aches, chills, fever, poor PO intake. cp 21:25 Cardiovascular: Negative for chest pain. cp 21:25 Respiratory: Negative for cough, shortness of breath, wheezing. cp 21:25 Eyes: Negative for injury, pain, redness, and discharge. cp 21:25 ENT: Negative for drainage from ear(s), ear pain, sore throat, difficulty swallowing, difficulty handling secretions. 21:25 Abdomen/GI: Negative for abdominal pain, nausea, vomiting, and diarrhea, constipation, bowel incontinence. 21:25 Back: Positive for pain at rest, pain with movement, of the low back area, Negative for injury or acute deformity. 21:25 : Negative for urinary symptoms, hematuria, difficulty urinating, bladder incontinence. 21:25 Skin: Negative for rash. 21:25 Neuro: Negative for altered mental status, dizziness, headache, numbness, weakness. 21:25 All other systems are negative. Exam: 21:33 Constitutional: The patient appears in no acute distress, alert, awake, non-toxic, well cp developed, well nourished, uncomfortable. 21:33 Head/Face: Normocephalic, atraumatic. cp 21:33 Eyes: Periorbital structures: appear normal, Conjunctiva: normal, no exudate, no injection, Sclera: no appreciated abnormality, Lids and lashes: appear normal, bilaterally. 21:33 ENT: External ear(s): are unremarkable, Nose: is normal, Mouth: Lips: moist, Oral mucosa: pink and intact, moist, Posterior pharynx: Airway: no evidence of obstruction, patent. 21:33 Neck: ROM/movement: is normal, is supple, without pain, no range of motions limitations. 21:33 Chest/axilla: Inspection: normal. 21:33 Cardiovascular: Rate: normal. 21:33 Respiratory: the patient does not display signs of respiratory distress, Respirations: normal, no use of accessory muscles, no retractions, labored breathing, is not present, Breath sounds: are clear throughout, no decreased breath sounds. 21:33 Abdomen/GI: Inspection: abdomen appears normal, Palpation: abdomen is soft and non-tender, in all quadrants. 21:33 Back: pain, that is severe, of the low back area, ROM is painful, with all movement, CVA tenderness, is absent. 21:33 Neuro: Motor: moves all fours, strength is normal, Deep tendon reflexes are 2+ (normal) in the right patellar, right Achilles, left patellar and left Achilles. Vital Signs: 21:11 BP 172 / 57; Pulse 65; Resp 18; Temp 96.9(TE); Pulse Ox 100% on R/A; Weight 54.43 kg; bb Height 4 ft. 9 in. (144.78 cm); Pain 9/10; 21:11 Body Mass Index 25.97 (54.43 kg, 144.78 cm) bb MDM: 21:39 Patient medically screened. emely 22:00 Differential diagnosis: sciatica, contusion, Herniated disc UTI, cauda equina, spinal cp stenosis, bulging disc, kidney stone. 08/24 00:35 Data reviewed: vital signs, nurses notes, lab test result(s), radiologic studies, CT cp scan. 00:35 Counseling: I had a detailed discussion with the patient and/or guardian regarding: the cp historical points, exam findings, and any diagnostic results supporting the discharge/admit diagnosis, lab results, radiology results, the need for outpatient follow up, a family practitioner, to return to the emergency department if symptoms worsen or persist or if there are any questions or concerns that arise at home. Response to treatment: the patient's symptoms have markedly improved after treatment, VSS. CT abdomen/pelvis negative for acute findings. Pain improved with meds. Will discharge to home for continued monitoring. 08/23 21:19 Order name: CBC with Diff; Complete Time: 23:01 08/23 23:01 Interpretation: Normal except: RBC 3.30; HGB 10.9; HCT 31.0; MPV 7.4. 08/23 21:19 Order name: CMP; Complete Time: 23:01 08/23 23:01 Interpretation: Normal except: CL 111; BUN 36; CRE 1.32; GFR 45; ALB 3.3; A/G 1.0. 08/23 21:19 Order name: Lipase; Complete Time: 23:01 08/23 23:03 Interpretation: Reviewed. 08/23 21:19 Order name: Urine Microscopic Only 08/23 23:02 Order name: CT Stone Protocol 08/23 21:19 Order name: IV Saline Lock; Complete Time: 22:26 08/23 21:19 Order name: Labs collected and sent; Complete Time: 22:26 08/23 21:19 Order name: Urine Dipstick-Ancillary (obtain specimen); Complete Time: 00:05 08/23 23:06 Order name: Stone Protocol EDMS Administered Medications: 08/23 23:16 Drug: Lidoderm Patch 5 % (700 mg/patch) 1 patches Route: Topical; Site: affected area; 23:16 Drug: fentaNYL (PF) 25 mcg Route: IVP; Site: left wrist; 08/24 00:00 Follow up: Response: No adverse reaction; Pain is decreased vc1 Disposition Summary: 08/24/21 00:37 Discharge Ordered Location: Home cp Problem: new cp Symptoms: have improved cp Condition: Stable cp Diagnosis - Low back pain cp - Radiculopathy, lumbar region cp Followup: cp - With: Private Physician - When: 2 - 3 days - Reason: Recheck today's complaints Discharge Instructions: - Discharge Summary Sheet cp - Acute Back Pain, Adult cp - Lumbosacral Radiculopathy cp - Back Exercises cp Forms: - Medication Reconciliation Form cp - Thank You Letter cp - Antibiotic Education cp - Prescription Opioid Use cp Prescriptions: - Lidoderm 5 % Topical adhesive patch,medicated - apply 1 patch by TOPICAL route once daily; 20 patch; Refills: 0, Product cp Selection Permitted - Cyclobenzaprine 10 mg Oral Tablet - take 1 tablet by ORAL route every 8 hours As needed; 20 tablet; Refills: 0, cp Product Selection Permitted - Tramadol 50 mg Oral Tablet - take 1 tablet by ORAL route every 8 hours as needed; 12 tablet; Refills: 0, cp Product Selection Permitted Signatures: Dispatcher [employer] EDJuan Muir MD MD cha Ballard, Brenda, RN RN bb Juan Sanchez, WILBUR PA Carolina Garcia RN vc1 Corrections: (The following items were deleted from the chart) 08/23 23:07 21:23 Abdomen Pelvis W Con+CT.RAD.BRZ ordered. [facility]
[2021-08-24 01:06] LABS: Urine Bacteria 20-50 /HPF (<20); Urine RBC NONE SEEN /HPF (NONE SEEN)
[2021-08-24 01:19] VITALS: BP 172/57; TEMP 96.9; O2SAT 100
--- NOTE | 2021-08-24 15:30 | RAD REPORT ---
EXAM DESCRIPTION: Stone Protocol CLINICAL HISTORY: 65 years Female low back pain COMPARISON: February 22, 2021 TECHNIQUE: Images were obtained in axial, sagittal, and coronal planes. No intravenous or oral contr ast was administered. This exam was performed according to our departmental dose-optimization program which includes use of Automated Exposure Control, adjustment of the mA and/or kV according to patient size and/or use of iterative reconstruction technique. FINDINGS: No abnormality involving the liver, pancreas or adrenal glands bilaterally. Prior cholecys tectomy. Curvilinear calcifications splenic hilus possibly tortuous splenic artery versus aneurysm. A ppearance not significantly changed when correlated with the prior study. No obstructing renal or ureteral calculi bilaterally. No hydronephrosis bilaterally. Unremarkable andre dder. Calcification abdominal aorta. No adenopathy or abnormal fluid collection is seen. Left para midline ventral hernias containing only mesenteric fat unchanged Appendix not well identified however no secondary signs for appendicitis. No bowel obstruction, perfo ration, or inflammation. No abnormality lower lungs bilaterally. No acute osseous abnormality. IMPRESSION: No acute intra-abdominal abnormality. Findings unchanged when correlated with the prior study. Electronically signed by: May Spencer MD 08/24/2021 12:07 AM CDT Due to temporary technical issues with the PACS/Fluency reporting system, reports are being signed by the in house radiologists without review as a courtesy to insure prompt reporting. The interpreting radiologist is fully responsible for the content of the report.
== END 2021-08-24 01:08 | disposition home or self-care (01) ==
LOC: ER 19:51
DX: M54.16 Radiculopathy, lumbar region (principal); E11.9 Type 2 diabetes mellitus without complications; I10 Essential (primary) hypertension; Z88.5 Allergy status to narcotic agent; Z88.6 Allergy status to analgesic agent; Z91.048 Other nonmedicinal substance allergy status
CPT/HCPCS: 87088; 85025; 87086; 36415; 81015; 83690; 80053; 76377; 74176; J3010; J2001; 96374; 99283

== ENCOUNTER 2022-07-20 18:46 | Emergency (ER) | payer OTHER ==
--- OUTSIDE RECORDS SUMMARY | 2022-07-20 19:02 | XMS REPORT | Continuity of Care Document ---
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 Bupivicaine Bupivicaine 2-0 No 2.5mg [facility] [place] 6-09 Spirit 00:00: - [facility] 00 [facility] Kenalog Kenalog 2-0 No 40mg Common (Triamcinol (Triamcinol 6-09 S pirit one) one) 00:00: - [facility] 00 [facility] Bupivicaine Bupivicaine 2021-0 No 2.5mg [facility] [place] 2-22 Spirit 00:00: - [facility] 00 [facility] Kenalog Kenalog 2021-0 No 40mg Common (Triamcinol (Triamcinol 2-22 S pirit one) one) 00:00: - [facility] 00 [facility] Bupivicaine Bupivicaine 2021-0 No 2.5mg [facility] [place] 2-22 Spirit 00:00: - [facility] 00 [facility] Bupivicaine Bupivicaine 2021-0 No 2.5mg [facility] [place] 2-22 [facility] 00:00: - [facility] 00 [facility] Kenalog Kenalog 2021-0 No 40mg Common (Triamcinol (Triamcinol 2-22 S pirit one) one) 00:00: - [facility] 00 [facility] Kenalog Kenalog 2021-0 No 40mg Common (Triamcinol (Triamcinol 2-22 S pirit one) one) 00:00: - [facility] 00 [facility] Bupivicaine Bupivicaine 2021-0 No 2.5mg [facility] [place] 2-22 Spirit 00:00: - [facility] 00 [facility] Kenalog Kenalog 2021-0 No 40mg Common (Triamcinol (Triamcinol 2-22 S pirit one) one) 00:00: - [facility] 00 [facility] Bupivicaine Bupivicaine 2021-0 No Common [place] 2-22 Spirit 00:00: - [facility] 00 [facility] Kenalog Kenalog 2021-0 No 40mg Common (Triamcinol (Triamcinol 2-22 S pirit one) one) 00:00: - [facility] 00 [facility] Bupivicaine Bupivicaine 2021-0 No Common [place] 2-22 Spirit 00:00: - [facility] 00 [facility] Kenalog Kenalog 2021-0 No 40mg Common (Triamcinol (Triamcinol 2-22 S pirit one) one) 00:00: - [facility] 00 [facility] Bupivicaine Bupivicaine 2021-0 No Common [place] 2-22 Spirit 00:00: - [facility] 00 [facility] Kenalog Kenalog 2-0 No 40mg Common (Triamcinol (Triamcinol 2-22 S pirit one) one) 00:00: - [facility] 00 [facility] Bupivicaine Bupivicaine 2-0 No 2.5mg [facility] [place] 2-22 [facility] 00:00: - [facility] 00 [facility] Kenalog Kenalog 2-0 No 40mg Common (Triamcinol (Triamcinol 2-22 S pirit one) one) 00:00: - [facility] 00 [facility] Bupivicaine Bupivicaine 2-0 No 2.5mg [facility] [place] 2-22 [facility] 00:00: - [facility] 00 [facility] Kenalog Kenalog 2021-0 No 40mg Common (Triamcinol (Triamcinol 2-22 S pirit one) one) 00:00: - [facility] 00 [facility] Bupivicaine Bupivicaine 2-0 No 2.5mg [facility] [place] 2-22 [facility] 00:00: - [facility] 00 [facility] Kenalog Kenalog 2-0 No 40mg Common (Triamcinol (Triamcinol 2-22 S pirit one) one) 00:00: - [facility] 00 [facility] Bupivicaine Bupivicaine 2-0 No 2.5mg [facility] [place] 2-22 [facility] 00:00: - [facility] 00 [facility] Kenalog Kenalog 2-0 No 40mg Common (Triamcinol (Triamcinol 2-22 S pirit one) one) 00:00: - [facility] 00 [facility] Bupivicaine Bupivicaine 2-0 No 2.5mg [facility] [place] 2-22 [facility] 00:00: - [facility] 00 [facility] Kenalog Kenalog 2-0 No 40mg Common (Triamcinol (Triamcinol 2-22 S pirit one) one) 00:00: - [facility] 00 [facility] Bupivicaine Bupivicaine 2-0 No 2.5mg [facility] [place] 2-22 [facility] 00:00: - [facility] 00 [facility] Kenalog Kenalog 2021-0 No 40mg Common (Triamcinol (Triamcinol 2-22 S pirit one) one) 00:00: - [facility] 00 [facility] Bupivicaine Bupivicaine 2021-0 No 2.5mg [facility] [place] 2-22 [facility] 00:00: - [facility] 00 [facility] Kenalog Kenalog 2021-0 No 40mg Common (Triamcinol (Triamcinol 2-22 S pirit one) one) 00:00: - [facility] 00 [facility] Bupivicaine Bupivicaine 2021-0 No 2.5mg [facility] [place] 2-22 [facility] 00:00: - [facility] 00 [facility] [place] Kenalog 2021-0 No 40mg Common (Triamcinol (Triamcinol 2-22 S pirit one) one) 00:00: - [facility] 00 [facility] Bupivicaine Bupivicaine 2021-0 No 2.5mg [facility] [place] 2-22 [facility] 00:00: - [facility] 00 [facility] Kenalog Kenalog 2021-0 No 40mg Common (Triamcinol (Triamcinol 2-22 S pirit one) one) 00:00: - [facility] 00 [facility] Bupivicaine Bupivicaine 2021-0 No 2.5mg [facility] [place] 2-22 [facility] 00:00: - [facility] 00 [facility] Kenalog Kenalog 2021-0 No 40mg Common (Triamcinol (Triamcinol 2-22 S pirit one) one) 00:00: - [facility] 00 [facility] Bupivicaine Bupivicaine 2021-0 No 2.5mg [facility] [place] 2-22 [facility] 00:00: - [facility] 00 [facility] Kenalog Kenalog 2021-0 No 40mg Common (Triamcinol (Triamcinol 2-22 S pirit one) one) 00:00: - [facility] 00 [facility] Bupivicaine Bupivicaine 2021-0 No 2.5mg [facility] [place] 2-22 [facility] 00:00: - [facility] 00 [facility] Kenalog Kenalog 2021-0 No 40mg Common (Triamcinol (Triamcinol 2-22 S pirit one) one) 00:00: - [facility] 00 [facility] Bupivicaine Bupivicaine 2-0 No 2.5mg [facility] [place] 2-22 [facility] 00:00: - [facility] 00 [facility] Kenalog Kenalog 2-0 No 40mg Common (Triamcinol (Triamcinol 2-22 S pirit one) one) 00:00: - [facility] 00 [facility] Bupivicaine Bupivicaine 2021-0 No 2.5mg [facility] [place] 2-22 [facility] 00:00: - [facility] 00 [facility] Kenalog Kenalog 2021-0 No 40mg Common (Triamcinol (Triamcinol 2-22 S pirit one) one) 00:00: - [facility] 00 [facility] Bupivicaine Bupivicaine 2-0 No 2.5mg [facility] [place] 2-22 [facility] 00:00: - [facility] 00 [facility] Kenalog Kenalog 2021-0 No 40mg Common (Triamcinol (Triamcinol 2-22 S pirit one) one) 00:00: - [facility] 00 [facility] Bupivicaine Bupivicaine 2-0 No 2.5mg [facility] [place] 2-22 [facility] 00:00: - [facility] 00 [facility] Kenalog Kenalog 2021-0 No 40mg Common (Triamcinol (Triamcinol 2-22 S pirit one) one) 00:00: - [facility] 00 [facility] Bupivicaine Bupivicaine 2-0 No 2.5mg [facility] [place] 2-22 [facility] 00:00: - [facility] 00 [facility] Kenalog Kenalog 2-0 No 40mg Common (Triamcinol (Triamcinol 2-22 S pirit one) one) 00:00: - [facility] 00 [facility] Bupivicaine Bupivicaine 2-0 No 2.5mg [facility] [place] 2-22 [facility] 00:00: - [facility] 00 [facility] Kenalog Kenalog 2-0 No 40mg Common (Triamcinol (Triamcinol 2-22 S pirit one) one) 00:00: - [facility] 00 [facility] Bupivicaine Bupivicaine 2021-0 No 2.5mg [facility] [place] 2-22 [facility] 00:00: - [facility] 00 [facility] Kenalog Kenalog 2021-0 No 40mg Common (Triamcinol (Triamcinol 2-22 S pirit one) one) 00:00: - [facility] 00 [facility] Bupivicaine Bupivicaine 2021-0 No 2.5mg [facility] [place] 1-27 [facility] 00:00: - [facility] 00 [facility] Bupivicaine Bupivicaine 2021-0 No 2.5mg [facility] [place] 1-27 [facility] 00:00: - [facility] 00 [facility] Kenalog Kenalog 2021-0 No 40mg Common (Triamcinol (Triamcinol 1-27 S pirit one) one) 00:00: - [facility] 00 [facility] Bupivicaine Bupivicaine 2021-0 No 2.5mg [facility] [place] 1-27 [facility] 00:00: - [facility] 00 [facility] Kenalog Kenalog 2021-0 No 40mg Common (Triamcinol (Triamcinol 1-27 S pirit one) one) 00:00: - [facility] 00 [facility] Kenalog Kenalog 2021-0 No 40mg Common (Triamcinol (Triamcinol 1-27 S pirit one) one) 00:00: - [facility] 00 [facility] Bupivicaine Bupivicaine 2021-0 No 2.5mg [facility] [place] 1-27 [facility] 00:00: - [facility] 00 [facility] Kenalog Kenalog 2021-0 No 40mg Common (Triamcinol (Triamcinol 1-27 S pirit one) one) 00:00: - [facility] 00 [facility] Bupivicaine Bupivicaine 2021-0 No Common [place] 1-27 [facility] 00:00: - [facility] 00 [facility] Kenalog Kenalog 2021-0 No 40mg Common (Triamcinol (Triamcinol 1-27 S pirit one) one) 00:00: - [facility] 00 [facility] Bupivicaine Bupivicaine 2021-0 No Common [place] 1-27 [facility] 00:00: - [facility] 00 [facility] Kenalog Kenalog 2021-0 No 40mg Common (Triamcinol (Triamcinol 1-27 S pirit one) one) 00:00: - [facility] 00 [facility] Bupivicaine Bupivicaine 2021-0 No Common [place] 1-27 [facility] 00:00: - [facility] 00 [facility] Kenalog Kenalog 2021-0 No 40mg Common (Triamcinol (Triamcinol 1-27 S pirit one) one) 00:00: - [facility] 00 [facility] Bupivicaine Bupivicaine 2021-0 No 2.5mg [facility] [place] 1-27 [facility] 00:00: - [facility] 00 [facility] Kenalog Kenalog 2021-0 No 40mg Common (Triamcinol (Triamcinol 1-27 S pirit one) one) 00:00: - [facility] 00 [facility] Bupivicaine Bupivicaine 2021-0 No 2.5mg [facility] [place] 1-27 [facility] 00:00: - [facility] 00 [facility] Kenalog Kenalog 2021-0 No 40mg Common (Triamcinol (Triamcinol 1-27 S pirit one) one) 00:00: - [facility] 00 [facility] Bupivicaine Bupivicaine 2021-0 No 2.5mg [facility] [place] 1-27 [facility] 00:00: - [facility] 00 [facility] Kenalog Kenalog 2021-0 No 40mg Common (Triamcinol (Triamcinol 1-27 S pirit one) one) 00:00: - [facility] 00 [facility] Bupivicaine Bupivicaine 2021-0 No 2.5mg [facility] [place] 1-27 [facility] 00:00: - [facility] 00 [facility] Kenalog Kenalog 2021-0 No 40mg Common (Triamcinol (Triamcinol 1-27 S pirit one) one) 00:00: - [facility] 00 [facility] Bupivicaine Bupivicaine 2-0 No 2.5mg [facility] [place] 1-27 [facility] 00:00: - [facility] 00 [facility] Kenalog Kenalog 2021-0 No 40mg Common (Triamcinol (Triamcinol 1-27 S pirit one) one) 00:00: - [facility] 00 [facility] Bupivicaine Bupivicaine 2-0 No 2.5mg [facility] [place] 1-27 [facility] 00:00: - [facility] 00 [facility] Kenalog Kenalog 2021-0 No 40mg Common (Triamcinol (Triamcinol 1-27 S pirit one) one) 00:00: - [facility] 00 [facility] Bupivicaine Bupivicaine 2021-0 No 2.5mg [facility] [place] 1-27 [facility] 00:00: - [facility] 00 [facility] Kenalog Kenalog 2021-0 No 40mg Common (Triamcinol (Triamcinol 1-27 S pirit one) one) 00:00: - [facility] 00 [facility] Bupivicaine Bupivicaine 2-0 No 2.5mg [facility] [place] 1-27 [facility] 00:00: - [facility] 00 [facility] Kenalog Kenalog 2021-0 No 40mg Common (Triamcinol (Triamcinol 1-27 S pirit one) one) 00:00: - [facility] 00 [facility] Bupivicaine Bupivicaine 2021-0 No 2.5mg [facility] [place] 1-27 [facility] 00:00: - [facility] 00 [facility] Kenalog Kenalog 2021-0 No 40mg Common (Triamcinol (Triamcinol 1-27 S pirit one) one) 00:00: - [facility] 00 [facility] Bupivicaine Bupivicaine 2-0 No 2.5mg [facility] [place] 1-27 [facility] 00:00: - [facility] 00 [facility] Kenalog Kenalog 2-0 No 40mg Common (Triamcinol (Triamcinol 1-27 S pirit one) one) 00:00: - [facility] 00 [facility] Bupivicaine Bupivicaine 2-0 No 2.5mg [facility] [place] 1-27 [facility] 00:00: - [facility] 00 [facility] Kenalog Kenalog 2-0 No 40mg Common (Triamcinol (Triamcinol 1-27 S pirit one) one) 00:00: - [facility] 00 [facility] Bupivicaine Bupivicaine 2-0 No 2.5mg [facility] [place] 1-27 [facility] 00:00: - [facility] 00 [facility] Kenalog Kenalog 2021-0 No 40mg Common (Triamcinol (Triamcinol 1-27 S pirit one) one) 00:00: - [facility] 00 [facility] Bupivicaine Bupivicaine 2021-0 No 2.5mg [facility] [place] 1-27 [facility] 00:00: - [facility] 00 [facility] Kenalog Kenalog 2021-0 No 40mg Common (Triamcinol (Triamcinol 1-27 S pirit one) one) 00:00: - [facility] 00 [facility] Bupivicaine Bupivicaine 2021-0 No 2.5mg [facility] [place] 1-27 [facility] 00:00: - [facility] 00 [facility] Kenalog Kenalog 2021-0 No 40mg Common (Triamcinol (Triamcinol 1-27 S pirit one) one) 00:00: - [facility] 00 [facility] Bupivicaine Bupivicaine 2021-0 No 2.5mg [facility] [place] 1-27 [facility] 00:00: - [facility] 00 [facility] Kenalog Kenalog 2021-0 No 40mg Common (Triamcinol (Triamcinol 1-27 S pirit one) one) 00:00: - [facility] 00 [facility] Bupivicaine Bupivicaine 2-0 No 2.5mg [facility] [place] 1-27 [facility] 00:00: - [facility] 00 [facility] Kenalog Kenalog 2021-0 No 40mg Common (Triamcinol (Triamcinol 1-27 S pirit one) one) 00:00: - [facility] 00 [facility] Bupivicaine Bupivicaine 2-0 No 2.5mg [facility] [place] 1-27 [facility] 00:00: - [facility] 00 [facility] Kenalog Kenalog 2021-0 No 40mg Common (Triamcinol (Triamcinol 1-27 S pirit one) one) 00:00: - [facility] 00 [facility] Bupivicaine Bupivicaine 2022-0 No 2.5mg [facility] [place] 1-27 [facility] 00:00: - [facility] 00 [facility] Kenalog Kenalog 0 No 40mg Common (Triamcinol (Triamcinol 1-27 S pirit one) one) 00:00: - [facility] 00 [facility] Bupivicaine Bupivicaine 0 No 2.5mg [facility] [place] 1-27 [facility] 00:00: - [facility] 00 [facility] Kenalog Kenalog No 40mg Common (Triamcinol (Triamcinol 1-27 S pirit one) one) 00:00: - [facility] 00 [facility] Pantoprazol Pantoprazol 2020-03 No 1{table QD Pantoprazo e Sodium 40 e Sodium 40 1-29 t} le Sodium MG MG 00:00: 40 MG 00 Pantoprazol Pantoprazol 2020-03 No 1{table QD Pantoprazo e Sodium 40 e Sodium 40 1-29 t} le Sodium MG MG 00:00: 40 MG 00 Pantoprazol Pantoprazol 2020-03 No 1{table QD Pantoprazo e Sodium 40 e Sodium 40 1-29 t} le Sodium MG MG 00:00: 40 MG 00 Pantoprazol Pantoprazol 2020-03 No 1{table QD Pantoprazo e Sodium 40 e Sodium 40 1-29 t} le Sodium MG MG 00:00: 40 MG 00 Escitalopra Escitalopra No 1{table QD Escitalopr m Oxalate 5 m Oxalate 5 9-17 t} am Oxalate MG MG 00:00: 5 MG 00 fenofibrate 2019-03 Yes Dyslipidemi 145mg QD Take 1 Blanco nanocrystal 1-05 a tablet by [facility] lized 00:00: mouth (TRICOR) 00 daily. 145 mg tablet fenofibrate 2019-03 Yes Dyslipidemi 145mg QD Take 1 Blanco nanocrystal 1-05 a tablet by [facility] lized 00:00: mouth (TRICOR) 00 daily. 145 mg tablet fenofibrate 2019-03 Yes Dyslipidemi 145mg QD Take 1 Blanco nanocrystal 1-05 a tablet by [facility] lized 00:00: mouth (TRICOR) 00 daily. 145 mg tablet lidocaine 2020- 1.5mL U nivers PF 2% 0-20 10-20 ity of (XYLOCAINE- 20:45: 20:04 [facility]) 00 :00 Medical injection Branch 1.5 mL lidocaine 2019-03 4mL Un noah PF 2% 0-20 10-20 ity of (XYLOCAINE- 20:45: 20:07 [facility]) 00 :00 Medical injection 4 Branch mL triamcinolo 2019-03 40mg Univers ne 0-20 10-20 ity of acetonide 20:45: 20:09 [place] (KENALOG) 00 :00 Medical injection Branch 40 mg lidocaine 2019-03 1.5mL U nivers PF 2% 0-20 10-20 ity of (XYLOCAINE- 20:45: 20:01 [facility]) 00 :00 Medical injection Branch 1.5 mL lidocaine 2019-03 4mL Un noah PF 2% 0-20 10-20 ity of (XYLOCAINE- 20:45: 20:05 [facility]) 00 :00 Medical injection 4 Branch mL triamcinolo 2019-03 40mg Univers ne 0-20 10-20 ity of acetonide 20:45: 20:08 [place] (KENALOG) 00 :00 Medical injection Branch 40 mg triamcinolo 2019-03 40mg 40 mg, Univers ne 0-20 10-20 Intra-sarina ity of acetonide 20:45: 20:08 [place] (KENALOG) 00 :00 ONCE, 1 Medical injection dose, Tue Branc h 40 mg 10/20/20 at 1545, Routine lidocaine 2019-03 No 4mL 4 mL, U nivers PF 2% 0-20 10-20 Intra-sarina ity of (XYLOCAINE- 20:45: 20:05 [facility] as MPF) 00 :00 ONCE NOW, Medical injection 4 1 dose, Branc h mL 10/20/20 at 1545, Routine lidocaine 2019-03 No 1.5mL 1.5 mL, Univers PF 2% 0-20 10-20 Infiltrati ity of (XYLOCAINE- 20:45: 20:01 on, [place]CE [place] 00 :00 NOW, 1 Medical injection dose, Tue Branc h 1.5 mL 12/31/19 at 1545, Routine triamcinolo 2019- No 40mg 40 mg, Univers ne 0-20 10-20 Intra-sarina ity of acetonide 20:45: 20:09 [place] (KENALOG) 00 :00 ONCE, 1 Medical injection dose, Tue Branc h 40 mg 12/31/19 at 1545, Routine lidocaine 2019-03 No 4mL 4 mL, U nivers PF 2% 0-20 10-20 Intra-sarina ity of (XYLOCAINE- 20:45: 20:07 [facility] MPF) 00 :00 ONCE NOW, Medical injection [...] 0-20 10-20 ity of (XYLOCAINE- 20:45: 20:04 [facility]) 00 :00 Medical injection Branch 1.5 mL lidocaine 2019-03 No 4mL Un noah PF 2% 0-20 10-20 ity of (XYLOCAINE- 20:45: 20:07 [facility]) 00 :00 Medical injection 4 Branch mL triamcinolo 2019-03 No 40mg Univers ne 0-20 10-20 ity of acetonide 20:45: 20:09 [place] (KENALOG) 00 :00 Medical injection Branch 40 mg lidocaine 2019-03 No 1.5mL U nivers PF 2% 0-20 10-20 ity of (XYLOCAINE- 20:45: 20:01 [facility]) 00 :00 Medical injection Branch 1.5 mL lidocaine 2019-03 No 4mL Un noah PF 2% 0-20 10-20 ity of (XYLOCAINE- 20:45: 20:05 [place] MPF) 00 :00 Medical injection 4 Branch mL triamcinolo 2019-03- No 40mg Univers ne 0-20 10-20 ity of acetonide 20:45: 20:08 [place] (KENALOG) 00 :00 Medical injection Branch 40 mg triamcinolo 2019-03- No 40mg 40 mg, Univers ne 0-20 10-20 Intra-sarina ity of acetonide 20:45: 20:08 [place] (KENALOG) 00 :00 ONCE, 1 Medical injection dose, Tue Branc h 40 mg 10/20/20 at 1545, Routine lidocaine 2019-03 No 4mL 4 mL, U nivers PF 2% 0-20 10-20 Intra-sarina ity of (XYLOCAINE- 20:45: 20:05 [facility] as MPF) 00 :00 ONCE NOW, Medical injection 4 1 dose, Branc h mL Tue //20 at 1545, Routine lidocaine 2019-03 No 1.5mL 1.5 mL, Univers PF 2% 0-20 10-20 Infiltrati ity of (XYLOCAINE- 20:45: 20:01 [place] [facility] [facility] NOW, 1 Medical injection dose, Tue Branc h 1.5 mL //20 at 1545, Routine triamcinolo 2019-03- No 40mg 40 mg, Univers ne 0-20 10-20 Intra-sarina ity of acetonide 20:45: 20:09 [place] (KENALOG) 00 :00 ONCE, 1 Medical injection dose, Tue Branc h 40 mg 10/20/20 at 1545, Routine lidocaine 2019-03- No 4mL 4 mL, U nivers PF 2% 0-20 10-20 Intra-sarina ity of (XYLOCAINE- 20:45: 20:07 [place] as MPF) 00 :00 ONCE NOW, Medical injection 4 1 dose, Branc h mL 10/20/20 at 1545, Routine lidocaine 2019-03- No 1.5mL 1.5 mL, Univers PF 2% 0-20 -20 Infiltrati ity of (XYLOCAINE- 20:45: 20:04 on, ONCE [place] [facility] 00 :00 NOW, 1 Medical injection dose, Jose roy 1.5 mL 12/31/19 at 1545, Routine FAMOTIDINE 2019-03 Yes Take by Univ ers 20 MG ORAL 0-06 mouth ity of TAB 14:29: daily. [place] [address] Medical Branch FENOFIBRATE 2019-03 Yes 145mg Take 145 U nivers 160 MG ORAL 0-06 mg by ity of TAB 14:29: mouth at [place] [address] bedtime. Medical Branch simvastatin 2019-03 Yes 40mg Take 40 mg Univers 20 mg 0-06 by mouth ity of tablet 14:29: at [place] [address] bedtime. Medical Branch hydroCHLORO 2019-03 Yes 25mg Take 25 mg Univers thiazide 25 0-06 by mouth ity of mg tablet 14:29: daily. [place] [address] Medical Branch lisinopril 2019-03 Yes 20mg Take 20 mg U nivers 20 mg 0-06 by mouth ity of tablet 14:29: daily. [place] [address] Medical Branch metformin 2019-03 Yes 500mg Take 500 Uni vers HCl 0-06 mg by ity of (METFORMIN 14:29: mouth [place] 04 (two) Medical times Branch daily with meals. FAMOTIDINE 2019-03 Yes Take by Univ ers 20 MG ORAL 0-06 mouth ity of TAB 14:29: daily. [place] [address] Medical Branch FENOFIBRATE 2019-03 Yes 145mg Take 145 U nivers 160 MG ORAL 0-06 mg by ity of TAB 14:29: mouth at [place] [address] bedtime. Medical Branch simvastatin 2019-03 Yes 40mg Take 40 mg Univers 20 mg 0-06 by mouth ity of tablet 14:29: at [place] [address] bedtime. Medical Branch hydroCHLORO 2019- Yes 25mg Take 25 mg Univers thiazide 25 0-06 by mouth ity of mg tablet 14:29: daily. [place] [address] Medical Branch lisinopril 2019-03 Yes 20mg Take 20 mg U nivers 20 mg 0-06 by mouth ity of tablet 14:29: daily. [place] [address] Medical Branch metformin 2019- Yes 500mg Take 500 Uni vers HCl 0-06 mg by ity of (METFORMIN 14:29: mouth [place] 04 (two) Medical times Branch daily with meals. FAMOTIDINE 2019-03 Yes Take by Univ ers 20 MG ORAL 0-06 mouth ity of TAB 14:29: daily. [place] [address] Medical Branch FENOFIBRATE 2019- Yes 145mg Take 145 U nivers 160 MG ORAL 0-06 mg by ity of TAB 14:29: mouth at [place] [address] bedtime. Medical Branch simvastatin 2019- Yes 40mg Take 40 mg Univers 20 mg 0-06 by mouth ity of tablet 14:29: at [place] [address] bedtime. Medical Branch hydroCHLORO 2019- Yes 25mg Take 25 mg Univers thiazide 25 0-06 by mouth ity of mg tablet 14:29: daily. [place] [address] Medical Branch lisinopril 2019-03 Yes 20mg Take 20 mg U nivers 20 mg 0-06 by mouth ity of tablet 14:29: daily. [place] [address] Medical Branch metformin 2019-03 Yes 500mg Take 500 Uni vers HCl 0-06 mg by ity of (METFORMIN 14:29: mouth [place] 04 (two) Medical times [place] daily with meals. FAMOTIDINE 2019-03 Yes Take by Univ ers 20 MG ORAL 0-06 mouth ity of TAB 14:29: daily. [place] [address] Medical Branch FENOFIBRATE 2019-03 Yes 145mg Take 145 U nivers 160 MG ORAL 0-06 mg by ity of TAB 14:29: mouth at [place] [address] bedtime. Medical Branch simvastatin 2019- Yes 40mg Take 40 mg Univers 20 mg 0-06 by mouth ity of tablet 14:29: at [place] [address] bedtime. Medical Branch hydroCHLORO 2019- Yes 25mg Take 25 mg Univers thiazide 25 0-06 by mouth ity of mg tablet 14:29: daily. [place] [address] Medical Branch lisinopril 2019- Yes 20mg Take 20 mg U nivers 20 mg 0-06 by mouth ity of tablet 14:29: daily. [place] [address] Medical Branch metformin 2019- Yes 500mg Take 500 Uni vers HCl 0-06 mg by ity of (METFORMIN 14:29: mouth [place] 04 (two) Medical times Branch daily with meals. FAMOTIDINE 2019-03 Yes Take by Univ ers 20 MG ORAL 0-06 mouth ity of TAB 14:29: daily. [place] [address] Medical Branch FENOFIBRATE 2019- Yes 145mg Take 145 U nivers 160 MG ORAL 0-06 mg by ity of TAB 14:29: mouth at [place] [address] bedtime. Medical Branch simvastatin 2020-1 Yes 40mg Take 40 mg [facility] 20 mg 0-06 by mouth ity of tablet 14:29: at [place] [address] bedtime. Medical Branch hydroCHLORO 2020- Yes 25mg Take 25 mg [facility] thiazide 25 0-06 by mouth ity of mg tablet 14:29: daily. [place] [address] [facility] lisinopril 2020- Yes 20mg Take 20 mg U nivers 20 mg 0-06 by mouth ity of tablet 14:29: daily. [place] [address] [facility] metformin 2020- Yes 500mg Take 500 [facility] vers HCl 0-06 mg by ity of (METFORMIN 14:29: mouth [place]AL) (two) Medical times Branch daily with meals. FAMOTIDINE 2019- Yes Take by Univ ers 20 MG ORAL 0-06 mouth ity of TAB 14:29: daily. [place] [address] Medical Branch FENOFIBRATE 2019- Yes 145mg Take 145 U nivers 160 MG ORAL 0-06 mg by ity of TAB 14:29: mouth at [place] [address] bedtime. Medical Branch simvastatin 2019- Yes 40mg Take 40 mg Univers 20 mg 0-06 by mouth ity of tablet 14:29: at [place] [address] bedtime. Medical Branch hydroCHLORO 2019- Yes 25mg Take 25 mg Univers thiazide 25 0-06 by mouth ity of mg tablet 14:29: daily. [place] [address] Medical Branch lisinopril 2019- Yes 20mg Take 20 mg U nivers 20 mg 0-06 by mouth ity of tablet 14:29: daily. [place] [address] Medical Branch metformin 2020- Yes 500mg Take 500 Uni vers HCl 0-06 mg by ity of (METFORMIN 14:29: mouth [place] OR[place]) (two) Medical times Branch daily with meals. FAMOTIDINE 2019- Yes Take by Univ ers 20 MG ORAL 0-06 mouth ity of TAB 14:29: daily. [place] [address] Medical Branch FENOFIBRATE 2019- Yes 145mg Take 145 U nivers 160 MG ORAL 0-06 mg by ity of TAB 14:29: mouth at [place] [address] bedtime. Medical Branch simvastatin 2020- Yes 40mg Take 40 mg Univers 20 mg 0-06 by mouth ity of tablet 14:29: at [place] [address] bedtime. Medical Branch hydroCHLORO 2020-1 Yes 25mg Take 25 mg Univers thiazide 25 0-06 by mouth ity of mg tablet 14:29: daily. [address] Branch lisinopril 2019- Yes 20mg Take 20 mg U nivers 20 mg 0-06 by mouth ity of tablet 14:29: daily. [address] metformin 2019- Yes 500mg Take 500 Uni vers HCl 0-06 mg by ity of (METFORMIN 14:29: mouth [place] OR[place] 04 (two) Medical times [place] daily with meals. FAMOTIDINE 2019-03 Yes Take by Univ ers 20 MG ORAL 0-06 mouth ity of TAB 14:29: daily. [address] FENOFIBRATE 2019- Yes 145mg Take 145 U nivers 160 MG ORAL 0-06 mg by ity of TAB 14:29: mouth at [place] [address] bedtime. Medical Branch simvastatin 2019- Yes 40mg Take 40 mg [facility] 20 mg 0-06 by mouth ity of tablet 14:29: at [place] [address] bedtime. Medical Branch hydroCHLORO 2019- Yes 25mg Take 25 mg [facility] thiazide 25 0-06 by mouth ity of mg tablet 14:29: daily. [address] lisinopril 2019-03 Yes 20mg Take 20 mg U nivers 20 mg 0-06 by mouth ity of tablet 14:29: daily. [address] metformin 2019- Yes 500mg Take 500 Uni vers HCl 0-06 mg by ity of (METFORMIN 14:29: mouth [place] OR[place] 04 (two) Medical times [place] daily with meals. FAMOTIDINE 2019- Yes Take by Univ ers 20 MG ORAL 0-06 mouth ity of TAB 14:29: daily. [address] FENOFIBRATE 2019- Yes 145mg Take 145 U nivers 160 MG ORAL 0-06 mg by ity of TAB 14:29: mouth at [place] [address] bedtime. Medical Branch simvastatin 2020- Yes 40mg Take 40 mg [facility] 20 mg 0-06 by mouth ity of tablet 14:29: at [place] [address] bedtime. Medical Branch hydroCHLORO 2019- Yes 25mg Take 25 mg [facility] thiazide 25 0-06 by mouth ity of mg tablet 14:29: daily. [address] lisinopril 2019- Yes 20mg Take 20 mg U nivers 20 mg 0-06 by mouth ity of tablet 14:29: daily. [address] Branch metformin 2020-1 Yes 500mg Take 500 Uni vers HCl 0-06 mg by ity of (METFORMIN 14:29: mouth [place] ORAL) (two) [facility] times Branch daily with meals. simvastatin 2020-1 Yes Dyslipidemi 40mg Take 2 [place] (ZOCOR) 20 0-06 a tablets by [facility] tablet [facility]: mouth at 00 bedtime nightly. simvastatin 2020-1 Yes Dyslipidemi 40mg Take 2 [place] (ZOCOR) 20 0-06 a tablets by [facility] mg tablet 00:00: mouth at 00 bedtime nightly. simvastatin 2020-1 Yes Dyslipidemi 40mg Take 2 [place] (ZOCOR) 20 0-06 a tablets by [facility] mg tablet 00:00: mouth at 00 bedtime nightly. hydroCHLORO 2020-0 Yes Essential 25mg QD Take 1 [place] thiazide 9-17 hypertensio tablet by Health (HYDRODIURI 00:00: n mouth L) 25 mg 00 daily. tablet lisinopriL 2020-0 Yes Essential 20mg QD Take 1 [place] (PRINIVIL) 9-17 hypertensio tablet by [facility] 20 mg 00:00: n mouth tablet 00 daily. hydroCHLORO 2020-0 Yes Essential 25mg QD Take 1 [place] thiazide 9-17 hypertensio tablet by Health (HYDRODIURI 00:00: n mouth L) 25 mg 00 daily. tablet lisinopriL 2020-0 Yes Essential 20mg QD Take 1 [place] (PRINIVIL) 9-17 hypertensio tablet by [facility] 20 mg 00:00: n mouth tablet 00 daily. hydroCHLORO 2020-0 Yes Essential 25mg QD Take 1 [place] thiazide 9-17 hypertensio tablet by Health (HYDRODIURI 00:00: n mouth L) 25 mg 00 daily. tablet lisinopriL 2020-0 Yes Essential 20mg QD Take 1 [place] (PRINIVIL) 9-17 hypertensio tablet by [facility] 20 mg 00:00: n mouth tablet 00 daily. ALLOPURINOL 2020-0 Yes 100mg Take 100 U [...] Medical Branch FAMOTIDINE 2020-0 Yes Take by Univ ers 20 MG ORAL 8-22 mouth ity of TAB 23:55: daily. [place] [address] Medical Branch FENOFIBRATE 2020-0 Yes 145mg Take 145 U nivers 160 MG ORAL 8-22 mg by ity of TAB 23:55: mouth at [place] 33 bedtime. Medical Branch ALLOPURINOL 2020-0 Yes 100mg Take 100 U nivers ORAL 8-22 mg by ity of 23:55: mouth [place] 33 daily. Medical Branch simvastatin 2020-0 Yes 40mg Take 40 mg Univers 20 mg 8-22 by mouth ity of tablet 23:55: at [place] [address] bedtime. Medical Branch hydroCHLORO 2020-0 Yes 25mg Take 25 mg Univers thiazide 25 8-22 by mouth ity of mg tablet 23:55: daily. [place] [address] Medical Branch lisinopril 2020-0 Yes 20mg Take 20 mg U nivers 20 mg 8-22 by mouth ity of tablet 23:55: daily. [place] [address] Medical Branch metformin 2020-0 Yes 500mg Take 500 Uni vers HCl 8-22 mg by ity of (METFORMIN 23:55: mouth [place] OR[place]) (two) Medical times Branch daily with meals. FAMOTIDINE 2020-0 Yes Take by Univ ers 20 MG ORAL 8-22 mouth ity of TAB 23:55: daily. [place] [address] Medical Branch FENOFIBRATE 2020-0 Yes 145mg Take 145 U nivers 160 MG ORAL 8-22 mg by ity of TAB 23:55: mouth at [place] [address] bedtime. Medical Branch ALLOPURINOL 2020-0 Yes 100mg Take 100 U nivers ORAL 8-22 mg by ity of 23:55: mouth [place] [address] daily. Medical Branch simvastatin 2020-0 Yes 40mg Take 40 mg Univers 20 mg 8-22 by mouth ity of tablet 23:55: at [place] [address] bedtime. Medical Branch hydroCHLORO 2020-0 Yes 25mg Take 25 mg Univers thiazide 25 8-22 by mouth ity of mg tablet 23:55: daily. [place] [address] Medical Branch lisinopril 2020-0 Yes 20mg Take 20 mg U nivers 20 mg 8-22 by mouth ity of tablet 23:55: daily. [place] [address] Medical Branch metformin 2020-0 Yes 500mg Take 500 Uni vers HCl 8-22 mg by ity of (METFORMIN 23:55: mouth [place] OR[place]) (two) Medical times Branch daily with meals. FAMOTIDINE 2020-0 Yes Take by Univ ers 20 MG ORAL 8-22 mouth ity of TAB 23:55: daily. [place] [address] Medical Branch FENOFIBRATE 2020-0 Yes 145mg Take 145 U nivers 160 MG ORAL 8-22 mg by ity of TAB 23:55: mouth at [place] [address] bedtime. Medical Branch ALLOPURINOL 2020-0 Yes 100mg Take 100 U nivers ORAL 8-22 mg by ity of 23:55: mouth [place] [address] daily. Medical Branch simvastatin 2020-0 Yes 40mg Take 40 mg Univers 20 mg 8-22 by mouth ity of tablet 23:55: at [place] [address] bedtime. Medical Branch hydroCHLORO 2020-0 Yes 25mg Take 25 mg Univers thiazide 25 8-22 by mouth ity of mg tablet 23:55: daily. [place] [address] Medical Branch lisinopril 2020-0 Yes 20mg Take 20 mg U nivers 20 mg 8-22 by mouth ity of tablet 23:55: daily. [place] [address] Medical Branch metformin 2020-0 Yes 500mg Take 500 Uni vers HCl 8-22 mg by ity of (METFORMIN 23:55: mouth [place] OR[place]) (two) Medical times Branch daily with meals. FAMOTIDINE 2020-0 Yes Take by Univ ers 20 MG ORAL 8-22 mouth ity of TAB 23:55: daily. [place] [address] Medical Branch FENOFIBRATE 2020-0 Yes 145mg Take 145 U nivers 160 MG ORAL 8-22 mg by ity of TAB 23:55: mouth at [place] [address] bedtime. Medical Branch ALLOPURINOL 2020-0 Yes 100mg Take 100 U nivers ORAL 8-22 mg by ity of 23:55: mouth [place] [address] daily. Medical Branch simvastatin 2020-0 Yes 40mg Take 40 mg Univers 20 mg 8-22 by mouth ity of tablet 23:55: at [place] [address] bedtime. Medical Branch hydroCHLORO 2020-0 Yes 25mg Take 25 mg Univers thiazide 25 8-22 by mouth ity of mg tablet 23:55: daily. [place] [address] Medical Branch lisinopril 2020-0 Yes 20mg Take 20 mg U nivers 20 mg 8-22 by mouth ity of tablet 23:55: daily. [place] [address] Medical Branch metformin 2020-0 Yes 500mg Take 500 Uni vers HCl 8-22 mg by ity of (METFORMIN 23:55: mouth 2 [place]) (two) Medical times Branch daily with meals. FAMOTIDINE 2020-0 Yes Take by Univ ers 20 MG ORAL 8-22 mouth ity of TAB 23:55: daily. [place] [address] Medical Branch FENOFIBRATE 2020-0 Yes 145mg Take 145 U nivers 160 MG ORAL 8-22 mg by ity of TAB 23:55: mouth at [place] [address] bedtime. Medical Branch FAMOTIDINE 2020-0 Yes Take by Univ ers 20 MG ORAL 8-22 mouth ity of TAB 23:55: daily. [place] [address] Medical Branch FENOFIBRATE 2020-0 Yes 145mg Take 145 U nivers 160 MG ORAL 8-22 mg by ity of TAB 23:55: mouth at [place] [address] bedtime. Medical Branch ALLOPURINOL 2020-0 Yes 100mg Take 100 U nivers ORAL 8-22 mg by ity of 23:55: mouth [place] [address] daily. Medical Branch simvastatin 2020-0 Yes 40mg Take 40 mg Univers 20 mg 8-22 by mouth ity of tablet 23:55: at [place] [address] bedtime. Medical Branch hydroCHLORO 2020-0 Yes 25mg Take 25 mg Univers thiazide 25 8-22 by mouth ity of mg tablet 23:55: daily. [place] [address] Medical Branch lisinopril 2020-0 Yes 20mg Take 20 mg U nivers 20 mg 8-22 by mouth ity of tablet 23:55: daily. [place] [address] Medical Branch metformin 2020-0 Yes 500mg Take 500 Uni vers HCl 8-22 mg by ity of (METFORMIN 23:55: mouth 2 [place] OR[place]) (two) Medical times [place] daily with meals. FAMOTIDINE 2020-0 Yes Take by Univ ers 20 MG ORAL 8-22 mouth ity of TAB 23:55: daily. [place] [address] Medical Branch FENOFIBRATE 2020-0 Yes 145mg Take 145 U nivers 160 MG ORAL 8-22 mg by ity of TAB 23:55: mouth at [place] [address] bedtime. Medical Branch simvastatin 2020-0 Yes 40mg Take 40 mg Univers 20 mg 8-22 by mouth ity of tablet 23:55: at [place] [address] bedtime. Medical Branch hydroCHLORO 2020-0 Yes 25mg Take 25 mg Univers thiazide 25 8-22 by mouth ity of mg tablet 23:55: daily. [place] [address] Medical Branch lisinopril 2020-0 Yes 20mg Take 20 mg U nivers 20 mg 8-22 by mouth ity of tablet 23:55: daily. [place] [address] Medical Branch metformin 2020-0 Yes 500mg Take 500 Uni vers HCl 8-22 mg by ity of (METFORMIN 23:55: mouth 2 [place] OR[place]) (two) Medical times [place] daily with meals. ALLOPURINOL 2020-0 Yes 100mg Take 100 U nivers ORAL 8-22 mg by ity of 23:55: mouth [place] [address] daily. Medical Branch simvastatin 2020-0 Yes 40mg Take 40 mg Univers 20 mg 8-22 by mouth ity of tablet 23:55: at [place] [address] bedtime. Medical Branch FAMOTIDINE 2020-0 Yes Take by Univ ers 20 MG ORAL 8-22 mouth ity of TAB 23:55: daily. [place] [address] Medical Branch FENOFIBRATE 2020-0 Yes 145mg Take 145 U nivers 160 MG ORAL 8-22 mg by ity of TAB 23:55: mouth at [place] [address] bedtime. Medical Branch simvastatin 2020-0 Yes 40mg Take 40 mg Univers 20 mg 8-22 by mouth ity of tablet 23:55: at [place] [address] bedtime. Medical Branch hydroCHLORO 2020-0 Yes 25mg Take 25 mg Univers thiazide 25 8-22 by mouth ity of mg tablet 23:55: daily. [place] [address] Medical Branch lisinopril 2020-0 Yes 20mg Take 20 mg U nivers 20 mg 8-22 by mouth ity of tablet 23:55: daily. [address] Branch metformin 2020-0 Yes 500mg Take 500 Uni vers HCl 8-22 mg by ity of (METFORMIN 23:55: mouth [place]) (two) Medical times [place] daily with meals. hydroCHLORO 2020-0 Yes 25mg Take 25 mg Univers thiazide 25 8-22 by mouth ity of mg tablet 23:55: daily. [address] Branch lisinopril 2020-0 Yes 20mg Take 20 mg U nivers 20 mg 8-22 by mouth ity of tablet 23:55: daily. [place] [address] Medical Branch FAMOTIDINE 2020-0 Yes Take by Univ ers 20 MG ORAL 8-22 mouth ity of TAB 23:55: daily. [place] [address] Medical [place] metformin 2020-0 Yes 500mg Take 500 Uni vers HCl 8-22 mg by ity of (METFORMIN 23:55: mouth 2 [place]) (two) Medical times [place] daily with meals. FENOFIBRATE 2020-0 Yes 145mg Take 145 U nivers 160 MG ORAL 8-22 mg by ity of TAB 23:55: mouth at [place] [address] bedtime. Medical Branch simvastatin 2020-0 Yes 40mg Take 40 mg Univers 20 mg 8-22 by mouth ity of tablet 23:55: at [place] [address] bedtime. Medical Branch hydroCHLORO 2020-0 Yes 25mg Take 25 mg Univers thiazide 25 8-22 by mouth ity of mg tablet 23:55: daily. [place] [address] Medical Branch lisinopril 2020-0 Yes 20mg Take 20 mg U nivers 20 mg 8-22 by mouth ity of tablet 23:55: daily. [address] metformin 2020-0 Yes 500mg Take 500 Uni vers HCl 8-22 mg by ity of (METFORMIN 23:55: mouth [place] 33 (two) Medical times Branch daily with meals. FAMOTIDINE 2020-0 Yes Take by Univ ers 20 MG ORAL 8-22 mouth ity of TAB 23:55: daily. [address] Branch FENOFIBRATE 2020-0 Yes 145mg Take 145 U nivers 160 MG ORAL 8-22 mg by ity of TAB 23:55: mouth at [place] [address] bedtime. Medical Branch simvastatin 2020-0 Yes 40mg Take 40 mg Univers 20 mg 8-22 by mouth ity of tablet 23:55: at [place] [address] bedtime. Medical Branch hydroCHLORO 2020-0 Yes 25mg Take 25 mg Univers thiazide 25 8-22 by mouth ity of mg tablet 23:55: daily. [address] lisinopril 2020-0 Yes 20mg Take 20 mg U nivers 20 mg 8-22 by mouth ity of tablet 23:55: daily. [address] metformin 2020-0 Yes 500mg Take 500 Uni vers HCl 8-22 mg by ity of (METFORMIN 23:55: mouth [place] 33 (two) Medical times Branch daily with meals. amoxicillin 2020-0 2020- No [id number] 1{tbl} Take 1 Univers -clavulanat 8-22 -06 tablet by it y of e 875-125 00:00: 04:59 mouth [place] mg per 00 :00 every 12 Medical tablet (twelve) Branch hours for 14 days. amoxicillin 2020-0 2020- No [id number] 1{tbl} Take 1 Univers -clavulanat 8-22 09-06 tablet by it y of e 875-125 00:00: 04:59 mouth [place] mg per 00 :00 every 12 Medical tablet (twelve) Branch hours for 14 days. amoxicillin 2020-0 2020- No [id number] 1{tbl} Take 1 Univers -clavulanat 8-22 09-06 tablet by it y of e 875-125 00:00: 04:59 mouth [place] mg per 00 :00 every 12 Medical tablet (twelve) Branch hours for 14 days. amoxicillin 2020-0 2020- No [id number] 1{tbl} Take 1 Univers -clavulanat 8-02 12-06 tablet by it y of e 875-125 00:00: 04:59 mouth [place] mg per 00 :00 every 12 Medical tablet (twelve) Branch hours for 14 days. amoxicillin 2020-0 2020- No [id number] 1{tbl} Take 1 Univers -clavulanat 8- 09-06 tablet by it y of e 875-125 00:00: 04:59 mouth [place] mg per 00 :00 every 12 Medical tablet (twelve) Branch hours for 14 days. amoxicillin 2020-0 2020- No [id number] 1{tbl} Take 1 Univers -clavulanat 8-02 12-06 tablet by it y of e 875-125 00:00: 04:59 mouth [place] mg per 00 :00 every 12 Medical tablet (twelve) Branch hours for 14 days. amoxicillin 2020-0 2020- No [id number] 1{tbl} Take 1 Univers -clavulanat 8-02 12-06 tablet by it y of e 875-125 00:00: 04:59 mouth [place] mg per 00 :00 every 12 Medical tablet (twelve) Branch hours for 14 days. amoxicillin 2020-0 2020- No [id number] 1{tbl} Take 1 Univers -clavulanat 8-02 12-06 tablet by it y of e 875-125 00:00: 04:59 mouth [place] mg per 00 :00 every 12 Medical tablet (twelve) Branch hours for 14 days. amoxicillin 2020-0 2020- No [id number] 1{tbl} Take 1 Univers -clavulanat 8-02 12-06 tablet by it y of e 875-125 00:00: 04:59 mouth [place] mg per 00 :00 every 12 Medical tablet (twelve) Branch hours for 14 days. amoxicillin 2020-0 Yes 1{tbl} 1 tablet, Univers -clavulanat 8-20 Oral, ity of e 18:15: Q12H, [place] (AUGMENTIN) 00 First dose Me dical 875-125 mg on [place] Branch per tablet 10/30/20 at 1 tablet 1315, Until Discontinu ed, Routine
Reason for Anti-Infec tive: Documented Infection< br>Documen mary kay Infection Site: Other
O ther site: lung
Du ration of Therapy: 7 days lisinopriL 2020-0 Yes 20mg 20 mg, Unive rs (PRINIVIL,Z 8-20 Oral, ity of ESTRIL) 14:00: DAILY, [place] tablet 20 00 First dose Medi heri mg on Mon10/31/19 at 0900, Until Discontinu ed, Routine simvastatin 2020-0 Yes 20mg 20 mg, Univ ers (ZOCOR) 8-20 Oral, QHS, ity of tablet 20 02:00: First dose [place] mg 00 on [facility] Medical 10/30/19 at Branch 2100, Until Discontinu ed, Routine Polyethylen 2020-0 Yes 17g 17 g, Unive rs e Glycol 8-20 Oral, BID, ity o f 3350 01:00: First dose [place] (MIRALAX) 00 on Mon [facility] powder 17 g 10/30/19 at Br anch 2000, Until Discontinu ed, Routine metFORMIN 2020-0 Yes 500mg 500 mg, Univ ers (GLUCOPHAGE 8-19 Oral, BID ity of ) tablet 22:00: MEALS, [place] 500 mg 00 First dose Medical on Mon [place] 10/30/19 at 1700, Until Discontinu ed, Routine cyclobenzap 2020-0 Yes 5mg 5 mg, Unive rs rine 8-19 Oral, TID, ity of (FLEXERIL) 19:00: First dose [place] tablet 5 mg 00 on Mon Medica l 10/30/19 at Branch 1400, Until Discontinu ed, Routine hydroCHLORO 2020-0 Yes 25mg 25 mg, Univ ers thiazide 8-19 Oral, ity of (ESIDRIX) 16:15: DAILY, [place] capsule 25 00 First dose Med ical mg on Mon [place] 10/30/19 at 1115, Until Discontinu ed, Routine allopurinoL 2020-0 Yes 100mg 100 mg, [place] (ZYLOPRIM) 8-19 Oral, ity of tablet 100 16:15: DAILY, [place] mg 00 First dose Medical on [facility] 10/30/19 at 1115, Until Discontinu ed, Routine acetaminoph 2020-0 Yes 650mg 650 mg, [place] en 8-19 Oral, ity of (TYLENOL) 15:53: Q6HPRN, [place] tablet 650 09 Starting [address] [facility] 10/30/19 at 1053, Until Discontinu ed, Routine, Pain (scale 1-3) HYDROcodone 2020-0 Yes 1{tbl} 1 tablet, Univers -acetaminop 10-29 Oral, ity of hen (NORCO 15:52: Q6HPRN, [place] 5) 5-325 mg 56 Starting Medi heri tablet 1 Mon [place] tablet 10/30/19 at 1052, Until Discontinu ed, [...] dose Bran ch (NS) 100 mL on MINI-BAG 10/29/19 at 1145, Until Discontinu ed, 100 mL
R rafael for Anti-Infec tive: Documented Infection< br>Documen mary kay Infection Site: Respirator y
Durat ion of Therapy: 10 days enoxaparin 2020-0 Yes 40mg 40 mg, Unive rs (LOVENOX) 18 Subcutaneo ity of injection 14:00: [place], DAILY, [place] 40 mg 00 First dose Medical on [facility] 10/29/19 at 0900, Until Discontinu ed, Routine sennosides 2020-0 Yes 8.6mg 8.6 mg, Uni vers (SENOKOT) 10-28 Oral, ity of tablet 8.6 14:00: DAILY, [place] mg 00 First dose Medical on [facility] 10/29/19 at 0900, Until Discontinu ed, Routine docusate 2020-0 Yes 100mg 100 mg, Unive rs (COLACE) 8-18 Oral, ity of capsule 100 14:00: DAILY, [place] mg 00 First dose Medical on [facility] 10/29/19 at 0900, Until Discontinu ed, Routine Sliding 2019-0 2020- No Subcutaneo Uni vers Scale 10-28 us, TID ity of Insulin - 13:00: 16:12 MEALS+HS, [place] Aspart 00 :15 First dose Medical (NOVOLOG) + on Mon Branch [facility] 10/29/19 at Testing 0800, Until Discontinu ed, Routine FENTanyl 2020- No 150ug 150 mcg, Uni vers REJECT [employer]ENER [employer] FILLER (5 10-27 Intravenou ity of mcg/mL NS) 22:00: 15:53 s, 30 mL, [place] 00 :26 CONTINUOUS Medical , Starting Branch 10/28/19 at 1700, Until 10/30/19 at 1053 ondansetron 2019-0 Yes 4mg 4 mg, Slow Univers (ZOFRAN 10-27 IV Push, ity of (PF)) 21:45: Q6HPRN, [place] injection 4 31 Starting Medi heri mg [facility] 10/28/19 at 1645, Until Discontinu ed, REA, Nausea and Vomiting (N/V) diphenhydrA 0 Yes 25mg 25 mg, Univ ers MINE 10-27 Oral, ity of (BENADRYL) 21:45: Q4HPRN, [place] tablet 25 30 Starting Medica l mg [facility] 10/28/19 at 1645, Until Discontinu ed, Routine, Itching naloxone 2019-0 Yes .1mg 0.1 mg, Univer s (NARCAN) 10-27 Slow IV ity of injection 21:45: Push, [place] 0.1 mg 30 SEE-INSTRU Medical CTIONS, Branch Starting 10/28/19 at 1645, Until Discontinu ed, Routine FENTanyl 2019-0 Yes Slow IV Univer s (SUBLIMAZE) 10-27 Push, ity of 50 mcg/mL 21:45: Routine [place] Load & 30 Medical Rescue dose Branch albuterol 0 2020- No 2.5mg 2.5 mg, Uni vers (PROVENTIL) 10-27 Inhalation i ty of 2.5 mg /3 21:30: 20:30 , ONCE, 1 [place] mL (0.083 00 :00 dose, [facility] Medic al %) 10/28/19 at Branch nebulizer 1630, solution Routine 2.5 mg lactated 2019- 2020- No 1000mL at 42 Unive rs ringers [...] 20 :00 dose, Medical mg Starting Branch [facility] 10/28/19 at 1530, Until 10/28/19 at 1530, Routine, Nausea and Vomiting (N/V), PACU FENTanyl PF 2019- No 25ug 25 mcg, [place] (SUBLIMAZE 10-27 Slow IV ity o f (PF)) 20:30: 21:40 Push, [place] injection 19 :06 Q5MIN PRN, Medi heri 25 mcg 4 doses, Branch Starting [facility] 10/28/19 at 1530, Until 10/28/19 at 1640, Routine, Pain (scale 4-6), PACU bupivacaine 2019-0 2020- No ONCE INTRA Univers (preserv 10-27 PROCEDURE, ity of free) 19:53: 20:18 Starting [place] (SENSORCAIN 00 :47 [facility] Medical E MPF) 0.25 10/28/19 at Br anch % (2.5 1453, mg/mL) Until Mon injection 10/28/19 at 1518, Routine, Intra-op sugammadex 2019-0 2020- No IV Push, [place] (BRIDION) 10-27 ONCE INTRA ity of injection 19:49: 20:18 PROCEDURE, [place] 00 :[address] [facility] 10/28/19 at 1449, Until [facility] 10/28/19 at 1518, Routine, Intra-op HYDROmorphO 2019-0 2020- No ONCE INTRA Univers ne 10-27 PROCEDURE, ity of (DILAUDID) 19:10: 20:18 Starting [place] injection 00 :47 [facility] Medical 10/28/19 at Branch 1410, Until Discontinu ed, Routine, Intra-op acetaminoph 2020-0 2020- No IV Unive rs en ADULT 10-27 Infusion, ity o f (OFIRMEV) 19:09: 20:18 Administer [place] injection 00 :47 over 15 Medical Minutes, Branch ONCE INTRA PROCEDURE, Starting 10/28/19 at 1409, Until Discontinu ed, Routine, Intra-op ondansetron 2019-0 2020- No Slow IV [place] (ZOFRAN 10-27 Push, ONCE ity o f (PF)) 19:09: 20:18 INTRA [place] injection 00 :47 PROCEDURE, Medi heri Starting Branch 10/28/19 at 1409, Until Discontinu ed, Routine, Intra-op calcium 2020-0 2020- No ONCE INTRA Uni vers chloride 10-27 PROCEDURE, ity of 100 mg/mL 18:41: 20:18 Starting [place] as (10 %) 00 :47 Mon Medical syringe 10/28/19 at Branch 1341, Until Discontinu ed, Routine, Intra-op PHENYLephri 2019-0 2020- No CONTINUOUS Univers ne 1000 10-27 PRN, ity of mcg/10 mL 17:55: 20:18 Starting [place] in 0.9% 00 :47 Mon Medical NaCl 10/28/19 at Branch syringe 1255, Until Discontinu ed, Routine, Intra-op dexamethaso 2019-0 2020- No IV Push, U nivers ne 10-27 ONCE INTRA ity of (DECADRON 17:15: 20:18 PROCEDURE, [place] PHOSPHATE) 00 :47 Starting Medic al injection [facility] 10/28/19 at 1215, Until Discontinu ed, Routine, Intra-op albuterol 2019-0 2020- No 2.5mg 2.5 mg, Uni vers (PROVENTIL) 10-27 Inhalation i ty of 2.5 mg /3 17:15: 16:20 , ONCE, 1 [place] mL (0.083 00 :00 dose, Mon Medic al %) 10/28/19 at [place] nebulizer 1215, solution Routine 2.5 mg phenylephri 2019-0 2020- No ONCE INTRA Univers ne 10-27 PROCEDURE, ity of (VAZCULEP) 16:49: 20:18 Starting [place] injection 00 :47 [facility] 10/28/19 at Branch 1149, Until Discontinu ed, Routine, Intra-op electrolyte 2020-0 2020- No CONTINUOUS Univers -A 10-27 PRN, ity of (PLASMALYTE 16:39: 20:18 Starting [place] -A) IV 00 :47 Mon Medical infusion 10/28/19 at [facility] h 1139, Until Discontinu ed, Routine, Intra-op rocuronium 2019-0 2020- No IV Push, [place] (ZEMURON) 10-27 ONCE INTRA ity of injection 16:36: 20:18 PROCEDURE, [place] 00 :[address] [facility] 10/28/19 at 1136, Until Discontinu ed, Routine, Intra-op propofol IV 2020-0 2020- No Slow IV [place] infusion 10-27 Push, ONCE ity of 16:36: 20:18 INTRA [place] 00 :47 PROCEDURE, [facility] Starting [facility] 10/28/19 at 1136, Until Discontinu ed, Routine, Intra-op lidocaine 2020-0 2020- No Slow IV Univ ers 1% 10-27 Push, ONCE ity of (XYLOCAINE) 16:36: 20:18 INTRA [place] 100 mg/10 00 :47 PROCEDURE, Medi heri mL (1 %) Starting [place] injection [facility] 10/28/19 at 1136, Until Discontinu ed, Routine, Intra-op FENTanyl PF 2020-0 2020- No Slow IV [place] (SUBLIMAZE 10-27 Push, ONCE it y of (PF)) 16:36: 20:18 INTRA [place] injection 00 :47 PROCEDURE, Medi heri Starting [facility] 10/28/19 at 1136, Until Discontinu ed, Routine, Intra-op midazolam 2020-0 2020- No IV Push, Uni vers (VERSED) 10-27 ONCE INTRA ity of injection 16:10: 20:18 PROCEDURE, [place] 00 :[address] [facility] 10/28/19 at 1110, Until Discontinu ed, Routine, Intra-op lactated 2020-0 2020- No CONTINUOUS Un noah ringers IV 10-27 PRN, ity of infusion 16:08: 20:18 [place] 00 :47 [facility] 10/28/19 at Branch 1108, Until Discontinu ed, Routine, Intra-op piperacilli 2020-0 2020- No 3.375g 3.375 g, Univers n-tazobacta 10-27 IV ity of m (ZOSYN) 15:15: 19:48 [place]back, [place] 3.375 g in 00 :18 Q6H ABX, Medic al NaCl 0.9% First dose Bran ch (NS) 100 mL (after MINI-BAG last modificati on) on 10/28/19 at 1015, Until Discontinu ed, 100 mL
Reas on for Anti-Infec tive: Documented Infection< br>Documen mary kay Infection Site: Respirator y
Durat ion of Therapy: 7 days amLODIPine 2020- No 5mg 5 mg, Unive rs (NORVASC) 10-26 Oral, ity of tablet 5 mg 14:00: 19:48 DAILY, [place] 00 :18 First dose Medical on Sun Branch 10/27/19 at 0900, Until Discontinu ed, Routine piperacilli 2019-0 2020- No 2.25g 2.25 g, IV Univers n-tazobacta 10-26 Piggyback, i ty of m (ZOSYN) 03:15: 11:22 Q6H ABX, [place] 2.25 g in 00 :43 First dose Medi heri NaCl 0.9% (after Branch (NS) 100 mL last MINI-BAG modificati on) on 10/26/19 at 2215, Until Discontinu ed, 100 mL
Reas on for Anti-Infec tive: Documented Infection< br>Documen mary kay Infection Site: Respirator y
Durat ion of Therapy: 7 days NaCl 0.9% 2020- No 1000mL at 50 Univ ers (NS) IV 10-25 mL/hr, IV ity of infusion 17:00: 19:48 Infusion, [place] 1,000 mL 00 :18 CONTINUOUS Medic al , Starting Branch 10/26/19 at 1200, Until [facility] 10/28/19 at 1448, Routine piperacilli 2020-0 2020- [...]
Durat ion of Therapy: 7 days ipratropium 2020-0 2020- No 3mL 3 mL, Univ ers -albuterol 10-25 Inhalation it y of (DUONEB) 00:00: 23:06 , ONCE [place] 0.5 mg-3 00 :00 NOW, 1 Medical mg(2.5 mg dose, Mon Branc h base)/3 mL 10/25/19 at nebulizer 1900, solution 3 Routine mL colchicine 2020-0 2020- No .6mg 0.6 mg, Uni vers [...] at 100 Uni vers (NS) IV 10-24 08-15 mL/hr, IV ity of infusion 17:15: 16:58 Infusion, [place] 1,000 mL 00 :04 CONTINUOUS Medic al , Starting Branch 10/25/19 at 1215, Until 10/26/19 at 1158, Routine NaCl 0.9% 2020-0 2020- No 100mL at 75 Unive rs (NS) IV 10-24 08-14 mL/hr, IV ity of infusion 16:00: 17:09 Infusion, [place] 100 mL 00 :46 CONTINUOUS Medical , Starting Branch Mon10/25/19 at 1100, Until 10/25/19 at 1209, Routine aspirin 2020-0 Yes 325mg 325 mg, Univer s tablet 325 10-24 Oral, ity of mg 15:00: DAILY, [place] 00 First dose Medical (after Branch last reorder) on Mon10/25/19 at 1000, Until Discontinu ed, Routine metoprolol 2019-0 2019- No 50mg 50 mg, Univ ers tartrate 10-2417 Oral, BID, ity of (LOPRESSOR) 13:00: 19:48 First dose [place] tablet 50 00 :18 (after Medical mg last Branch modificati on) on Mon10/25/19 at 0800, Until Discontinu ed, Routine ipratropium 2019- 2020- No 3mL 3 mL, Univ ers -albuterol 10-23 Inhalation it y of (DUONEB) 20:30: 22:13 , ONCE [place] 0.5 mg-3 00 :00 NOW, 1 Medical mg(2.5 mg dose, [facility] h base)/3 mL 10/24/19 at nebulizer 1530, solution 3 Routine mL aspirin 2019-2019- No 325mg 325 mg, Unive rs tablet 325 10-23 Oral, ity of mg 20:30: 19:55 ONCE, 1 [place] 00 :00 dose, [facility] Medical 10/24/19 at Branch 1530, Routine ketorolac 2019-0 2019- No 30mg 30 mg, Unive rs (TORADOL) 10-23 Slow IV ity of injection 14:15: 13:15 Push, [place] 30 mg 00 :00 ONCE, 1 Medical dose, [facility] 10/24/19 at 0915, Routine
delivery crew member approving Restricted medication : [facility] metoprolol 2019-0 2020- No 25mg 25 mg, Univ ers tartrate 10-23 Oral, BID, ity of (LOPRESSOR) 01:00: 12:28 First dose [place] tablet 25 00 :00 on Mon Medical mg 10/23/19 at Branch 2000, Until Discontinu ed, Routine ketorolac 2020-0 2020- No 30mg 30 mg, Unive rs (TORADOL) 10-22 Slow IV ity of injection 22:45: 22:20 Push, [place] 30 mg 00 :00 ONCE, 1 Medical dose, [facility] 10/23/19 at 1745, Routine
delivery crew member approving Restricted medication : MEGADC diphenhydrA 2019-0 2020- No 50mg 50 mg, Uni vers MINE 10-22 Slow IV ity of (BENADRYL) 21:44: 19:48 Push, [place] injection 19 :18 Q6HPRN, Medical 50 mg Starting Branch Mon10/23/19 at 1644, Until [facility] 10/28/19 at 1448, Routine, Itching, Rash fenofibrate 2019-0 2020- No 134mg 134 mg, U nivers micronized 10-22 Oral, ity of (LOFIBRA) 14:00: 19:48 DAILY, [place] capsule 134 00 :18 First dose Me dical mg on Mon Branch 10/23/19 at 0900, Until Discontinu ed famotidine 2020- No 20mg 20 mg, [facility] ers (PEPCID AC) 10-22 Oral, ity of tablet 20 14:00: 19:48 DAILY, [place] mg 00 :18 First dose Medical on [facility] 10/23/19 at 0900, Until Discontinu ed, Routine allopurinoL 2020- No 100mg 100 mg, U nivers (ZYLOPRIM) 10-22 Oral, ity of tablet 100 14:00: 19:48 DAILY, [place] mg 00 :18 First dose Medical on [facility] 10/23/19 at 0900, Until Discontinu ed lisinopril 0 2020- No 20mg 20 mg, [facility] ers (PRINIVIL,Z 10-22 Oral, ity of ESTRIL) 14:00: 12:27 DAILY, [place] tablet 20 00 :10 First dose Medi heri mg on [facility] 10/23/19 at 0900, Until Discontinu ed, Routine hydroCHLORO 2019-0 2020- No 25mg 25 mg, Uni vers thiazide 10-22 Oral, ity of (ESIDRIX) 14:00: 12:27 DAILY, [place] tablet 25 00 :10 First dose Medi heri mg on [facility] 10/23/19 at 0900, Until Discontinu ed, Routine morpHINE 2020-0 2020- No 4mg 4 mg, Slow Un noah injection 4 10-22 IV Push, ity of mg 08:47: 19:48 Q6HPRN, [place] 26 :[address] [facility] 10/23/19 at 0347, Until Mon10/28/19 at 1448, Routine, Pain (scale 7-10) simvastatin 2019- 2020- No 40mg 40 mg, Uni vers (ZOCOR) 10-22 Oral, QHS, ity o f tablet 40 02:00: 19:48 First dose [place] mg 00 :18 on [facility] 10/22/19 at Branch 2100, Until Discontinu ed, Routine heparin 2020- No 5000U 5,000 Univers (porcine) 10-22 Units, ity of injection 01:00: 19:48 Subcutaneo [place] 5,000 Units 00 :18 us, Q12H, Med ical First dose Branch on [facility] 10/22/19 at 2000, Until Discontinu ed, Routine benzonatate 2019- No 100mg 100 mg, U nivers (TESSALON 10-21 Oral, ity of PERLES) 22:29: 19:48 [facility] [place] capsule 100 53 :18 Starting Medi heri mg [facility] 10/22/19 at 1729, Until Mon10/28/19 at 1448, Routine, Cough ondansetron 2019- No 4mg 4 mg, Slow Univers (ZOFRAN 10-21 IV Push, ity of (PF)) 22:18: 19[facility]48 [facility] [place] injection 4 02 :18 Starting Medi heri mg [facility] 10/22/19 at 1718, Until Mon10/28/19 at 1448, Routine, Nausea and Vomiting (N/V) metFORMIN 2019- 2020- No 500mg 500 mg, Uni vers (GLUCOPHAGE 10-21 Oral, BID it y of ) tablet 22:00: 17:39 MEALS, [place] 500 mg 00 :55 First dose Medical on [facility] 10/22/19 at 1700, Until Discontinu ed tc 2019-0 2020- No 6.9mCi 6.9 Univers 99m-albumin 10-21 millicurie i ty of (DRAXIMAGE 18:00: 18:00 , [place] MAAntoinette) 00 :00 Intravenou Medical injection s, ONCE, 1 Bran ch 6.9 dose, [facility] millicurie 10/22/19 at 1315, Routine FLAGYL 500 2019- 2020- No None Univer s MG ORAL TAB 10-21 Entered ity of 17:04: 00:00 [place] 10 :00 [facility] VYTORIN 2019-0 2020- No None Univers 12-20 Entered ity of MG ORAL TAB 17:03: 00:00 [place] 38 :00 [facility] temazepam 2019- 2020- No 15mg 15 mg, Unive rs (RESTORIL) 10-21 Oral, ity of capsule 15 04:13: 19:48 QHSPRN, [place] mg 19 :[address] [facility] 10/21/19 at 2313, Until Mon10/28/19 at 1448, Routine, Insomnia ondansetron 2020- No 4mg 4 mg, Slow Univers (ZOFRAN 10-20 IV Push, ity of (PF)) 23:45: 22:43 ONCE, 1 [place] injection 4 00 :00 dose, [facility] Med ical mg 10/21/19 at Branch 1845, REA morpHINE 2019- No 6mg 6 mg, Slow Un noah injection 6 10-20 IV Push, ity of mg 23:45: 22:43 ONCE, 1 [place] 00 :00 dose, [facility] 10/21/19 at Branch 1845, STAT morpHINE 2019- No 4mg 4 mg, Slow Un noah injection 4 10-20 IV Push, ity of mg 23:39: 23:38 Q4HPRN, [place] 42 :[address] [facility] 10/21/19 at 1839, Until [facility] 10/22/19 at 1838, Routine, Pain (scale 7-10) HYDROcodone 2019- 2020- No 1{tbl} 1 tablet, Univers -acetaminop 10-20 Oral, ity of hen (NORCO 23:39: 23:38 Q6HPRN, [place] 5) 5-325 mg 36 :36 Starting Medi heri tablet 1 Mon [place] tablet 10/21/19 at 1839, Until 10/23/19 at 1838, Routine, Pain (scale 4-6) acetaminoph 2019-0 2020- No 650mg 650 mg, U nivers en 8-10 08-17 Oral, ity of (TYLENOL) 23:39: 19:48 Q6HPRN, [place] tablet 650 35 :18 Starting Medic al mg Mon [place] 10/21/19 at 1839, Until Mon10/28/19 at 1448, Routine, Pain (scale 1-3) NaCl 0.9% 2020-0 2020- No 1000mL at 999 Uni vers (NS) bolus 10-20 mL/hr, ity of infusion 19:45: 18:52 1,000 mL, [place] 1,000 mL 00 :00 IV Medical Infusion, Branch ONCE, 1 dose, 10/21/19 at 1445, STAT cyclobenzap 2020-0 2020- No 10mg 10 mg, Uni vers rine 10-20 Oral, ity of (FLEXERIL) 19:45: 18:52 ONCE, 1 [place] tablet 10 00 :00 dose, Mon Medic al mg 10/21/19 at Branch 1445, Routine morpHINE 2020-0 2020- No 4mg 4 mg, Slow Un noah injection 4 10-20 IV Push, ity of mg 19:45: 18:52 ONCE, 1 [place] 00 :00 dose, Mon Medical 10/21/19 at Branch 1445, STAT ondansetron 2020-0 2020- No 4mg 4 mg, Slow Univers (ZOFRAN 10-20 IV Push, ity of (PF)) 19:45: 18:52 ONCE, 1 [place] injection 4 00 :00 dose, Mon Med ical mg 10/21/19 at Branch 1445, RAE cyclobenzap 2020-0 Yes 10mg Take 10 mg [...] daily as Branch needed for Muscle Spasms. naproxen 2020-0 Yes Bilateral 500mg Take 1 H arris (NAPROSYN) 6-17 chronic tablet by H ealth 500 mg 00:00: knee pain mouth 2 tablet 00 times daily as needed for Pain. cyclobenzap 2020-0 Yes 10mg Take 1 [place] is rine 6-17 tablet by Health (FLEXERIL) 00:00: mouth 3 10 mg 00 times tablet daily as needed for Muscle Spasms. naproxen 2020-0 Yes Bilateral 500mg Take 1 H arris (NAPROSYN) 6-17 chronic tablet by H ealth 500 mg 00:00: knee pain mouth 2 tablet 00 times daily as needed for Pain. cyclobenzap 2020-0 Yes 10mg Take 1 [place] is rine 6-17 tablet by Health (FLEXERIL) 00:00: mouth 3 10 mg 00 times tablet daily as needed for Muscle Spasms. naproxen 2020-0 Yes Bilateral 500mg Take 1 H arris (NAPROSYN) 6-17 chronic tablet by ealth 500 mg 00:00: knee pain mouth 2 tablet 00 times daily as needed for Pain. cyclobenzap 2020-0 Yes 10mg Take 1 [place] is rine 6-17 tablet by [facility] (FLEXERIL) 00:00: mouth 3 10 mg 00 times tablet daily as needed for Muscle Spasms. hydrocortis 2020-0 Yes Itchy skin Q.5D Apply to [place] one 1 % 4-28 affected Health ointment 00:00: area 2 00 times daily. hydrocortis 2020-0 Yes Itchy skin Q.5D Apply to [place] one 1 % 4-28 affected Health ointment 00:00: area 2 00 times daily. hydrocortis 2020-0 Yes Itchy skin Q.5D Apply to [place] one 1 % 4-28 affected Health ointment 00:00: area 2 00 times daily. famotidine 2020-0 Yes Chronic 20mg Q.5D Take 1 [place] (PEPCID) 20 4-22 gastritis tablet by Health mg tablet 00:00: without mouth 2 00 bleeding, times unspecified daily. gastritis type famotidine 2020-0 Yes Chronic 20mg Q.5D Take 1 [place] (PEPCID) 20 4-22 gastritis tablet by Health mg tablet 00:00: without mouth 2 00 bleeding, times unspecified daily. gastritis type famotidine 2020-0 Yes Chronic 20mg Q.5D Take 1 [place] (PEPCID) 20 4-22 gastritis tablet by Health mg tablet 00:00: without mouth 2 00 bleeding, times unspecified daily. gastritis type nitrofurant 2020-0 Yes Essential 100mg Q.5D Take 1 [place] oin 1-31 hypertensio capsule by He angelica mono/m-mike 00:00: n mouth 2 tals 00 times (MACROBID) daily. 100 mg capsule allopurinoL 2020-0 Yes Elevated 100mg QD Take 1 [place] (ZYLOPRIM) 1-31 uric acid tablet by [facility] 100 mg 00:00: in blood mouth tablet 00 daily. nitrofurant 2020-0 Yes Essential 100mg Q.5D Take 1 [place] oin 1-31 hypertensio capsule by angelica mono/m-mike 00:00: n mouth 2 tals 00 times (MACROBID) daily. 100 mg capsule allopurinoL Yes Elevated 100mg QD Take 1 [place] (ZYLOPRIM) 04-12 uric acid tablet by [facility] 100 mg 00:00: in blood mouth tablet 00 daily. nitrofurant Yes Essential 100mg Q.5D Take 1 [place] oin 04-12 hypertensio capsule by He alth mono/m-mike 00:00: n mouth 2 tals 00 times (MACROBID) daily. 100 mg capsule allopurinoL Yes Elevated 100mg QD Take 1 [place] (ZYLOPRIM) 04-12 uric acid tablet by [facility] 100 mg 00:00: in blood mouth tablet 00 daily. metFORMIN Yes Type 2 1000mg Q.5D Take 1 [place] (GLUCOPHAGE 9-16 diabetes tablet by [facility] ) 1,000 mg 00:00: mellitus mouth 2 tablet 00 without times complicatio daily n, without (with long-term meals). current use of insulin metFORMIN Yes Type 2 1000mg Q.5D Take 1 [place] (GLUCOPHAGE 9-16 diabetes tablet by [facility] ) 1,000 mg 00:00: mellitus mouth 2 tablet 00 without times complicatio daily n, without (with long-term meals). current use of insulin metFORMIN Yes Type 2 1000mg Q.5D Take 1 [place] (GLUCOPHAGE 9-16 diabetes tablet by [facility] ) 1,000 mg 00:00: mellitus mouth 2 tablet 00 without times complicatio daily n, without (with long-term meals). current use of insulin benzonatate Yes Flu-like 100mg Take 1 [place] (TESSALON 3-11 symptoms capsule by [facility]) 100 00:00: mouth 3 mg capsule 00 times daily as needed for Cough. benzonatate Yes Flu-like 100mg Take 1 [place] (TESSALON 3-11 symptoms capsule by [facility]) 100 00:00: mouth 3 mg capsule 00 times daily as needed for Cough. benzonatate Yes Flu-like 100mg Take 1 [place] (TESSALON 3-11 symptoms capsule by [facility]) 100 00:00: mouth 3 mg capsule 00 times daily as needed for Cough. ciclesonide 2017-03 Yes Post-nasal 1{spray QD Use 1 [place] (ZETONNA) 2-21 drip } [place] in [facility] 37 00:00: each mcg/actuati 00 nostril on nasal daily. HFA inhaler ciclesonide 2017-03 Yes Post-nasal 1{spray QD Use 1 [place] (ZETONNA) 2-21 drip } [place] in [facility] 37 00:00: each mcg/actuati 00 nostril on nasal daily. HFA inhaler ciclesonide 2017-03 Yes Post-nasal 1{spray QD Use 1 [place] (ZETONNA) 2-21 drip } [place] in [facility] 37 00:00: each mcg/actuati 00 nostril on nasal daily. HFA inhaler piroxicam Yes Primary 20mg QD Take 1 [place] ris (FELDENE) 9-04 osteoarthri capsule by [facility] 20 mg 00:00: tis of both mouth capsule 00 knees daily. piroxicam Yes Primary 20mg QD Take 1 [place] ris (FELDENE) 9-04 osteoarthri capsule by [facility] 20 mg 00:00: tis of both mouth capsule 00 knees daily. piroxicam Yes Primary 20mg QD Take 1 [place] ris (FELDENE) 9-04 osteoarthri capsule by [facility] 20 mg 00:00: tis of both mouth capsule 00 knees daily. albuterol 2016-03 Yes Cough 2{puff} Inhale 2 [place] (PROVENTIL 2-[facility] 00:00: mouth 4 mcg/actuati 00 times on inhaler daily as needed for Shortness of Breath (cough). albuterol 2016-03 Yes Cough 2{puff} Inhale 2 [place] (PROVENTIL 2-29 Puffs [facility]) 90 00:00: mouth 4 mcg/actuati 00 times on inhaler daily as needed for Shortness of Breath (cough). albuterol 2016-03 Yes Cough 2{puff} Inhale 2 [place] (PROVENTIL 2-29 Puffs by [facility]) 90 00:00: mouth 4 mcg/actuati 00 times on inhaler daily as needed for Shortness of Breath (cough). betamethaso Yes Chronic injection [place] acetate 7-23 heel pain, into left Health & sod 00:00: left heel. phosphate 00 (CELESTONE) 6 mg/mL injection betamethaso Yes Chronic injection [place] acetate 7-23 heel pain, into left Health & sod 00:00: left heel. phosphate 00 (CELESTONE) 6 mg/mL injection betamethaso Yes Chronic injection [place] acetate 7-23 heel pain, into left Health & sod 00:00: left heel. phosphate 00 (CELESTONE) 6 mg/mL injection hydrocodone 2020- No 1{tbl} Take 1-2 Univers -acetaminop 2-28 10-21 Tabs by ity of hen (NORCO 00:00: 00:00 mouth [place] 5) 5-325 mg 00 :00 every 6 Medic al tablet (six) Branch hours as needed for Pain. HYDROCODONE 2019- No Take one U nivers -ACETAMINOP 07-26 by mouth ity of HEN 5-325 00:00: 00:00 every 4 to [place] MG ORAL TAB 00 :00 6 hours as Mo dical needed for Branch pain. CLINDAMYCIN 2020- No 1 tab Q 6h Univers HCL 300 MG 07-26 ity of ORAL CAP 00:00: 00:00 [place] 00 :00 Medical Branch DARVOCET-N 2020- No Take one Un noah 50 50-325 10-21 pill every ity of MG ORAL TAB 00:00: 00:00 4 hours as [place] 00 :00 needed for Medical pain Branch Fenofibrate Fenofibrate No Fenofibrat 145 MG 145 MG e 145 MG Losartan Losartan No Losartan Potassium Potassium Potassium 100 MG 100 MG 100 MG Hydrochloro Hydrochloro No 1{table QD Hydrochlor thiazide 25 thiazide 25 t} othiazide MG MG 25 MG Atorvastati Atorvastati No 1{table QD Atorvastat n Calcium n Calcium t} in Calcium 40 MG 40 MG 40 MG Allopurinol Allopurinol No Allopurino 100 MG 100 MG l 100 MG cyclobenzap cyclobenzap No cyclobenza rine rine lexie hydroCHLORO hydroCHLORO No hydroCHLOR thiazide 25 thiazide 25 Othiazide MG MG 25 MG Permethrin Permethrin No QD Permethrin 5 % 5 % 5 % Escitalopra Escitalopra No 1{table QD Escitalopr m Oxalate 5 m Oxalate 5 t} am Oxalate MG MG 5 MG Fenofibrate Fenofibrate No 1{table QD Fenofibrat 145 MG 145 MG t} e 145 MG Pantoprazol Pantoprazol No 1{table QD Pantoprazo e Sodium 40 e Sodium 40 t} le Sodium MG MG 40 MG Losartan Losartan No 1{table QD Losartan Potassium Potassium t} Potassium 100 MG 100 MG 100 MG Allopurinol Allopurinol No 1{table QD Allopurino 100 MG 100 MG t} l 100 MG Atorvastati Atorvastati No Atorvastat n Calcium n Calcium in Calcium 40 MG 40 MG 40 MG metFORMIN metFORMIN No metFORMIN HCl 500 MG HCl 500 MG HCl 500 MG metFORMIN metFORMIN No QD metFORMIN HCl 500 MG HCl 500 MG HCl 500 MG Triamcinolo Triamcinolo No Triamcinol ne ne one Acetonide Acetonide Acetonide 0.1 % 0.1 % 0.1 % Fenofibrate Fenofibrate No Fenofibrat 145 MG 145 MG e 145 MG Losartan Losartan No Losartan Potassium Potassium Potassium 100 MG 100 MG 100 MG Hydrochloro Hydrochloro No 1{table QD Hydrochlor thiazide 25 thiazide 25 t} othiazide MG MG 25 MG Atorvastati Atorvastati No 1{table QD Atorvastat n Calcium n Calcium t} in Calcium 40 MG 40 MG 40 MG Allopurinol Allopurinol No Allopurino 100 MG 100 MG l 100 MG cyclobenzap cyclobenzap No cyclobenza rine rine lexie hydroCHLORO hydroCHLORO No hydroCHLOR thiazide 25 thiazide 25 Othiazide MG MG 25 MG Permethrin Permethrin No QD Permethrin 5 % 5 % 5 % Escitalopra Escitalopra No 1{table QD Escitalopr m Oxalate 5 m Oxalate 5 t} am Oxalate MG MG 5 MG Fenofibrate Fenofibrate No 1{table QD Fenofibrat 145 MG 145 MG t} e 145 MG Pantoprazol Pantoprazol No 1{table QD Pantoprazo e Sodium 40 e Sodium 40 t} le Sodium MG MG 40 MG Losartan Losartan No 1{table QD Losartan Potassium Potassium t} Potassium 100 MG 100 MG 100 MG Allopurinol Allopurinol No 1{table QD Allopurino 100 MG 100 MG t} l 100 MG Atorvastati Atorvastati No Atorvastat n Calcium n Calcium in Calcium 40 MG 40 MG 40 MG metFORMIN metFORMIN No metFORMIN HCl 500 MG HCl 500 MG HCl 500 MG metFORMIN metFORMIN No QD metFORMIN HCl 500 MG HCl 500 MG HCl 500 MG Triamcinolo Triamcinolo No Triamcinol ne ne one Acetonide Acetonide Acetonide 0.1 % 0.1 % 0.1 % Fenofibrate Fenofibrate No Fenofibrat 145 MG 145 MG e 145 MG Losartan Losartan No Losartan Potassium Potassium Potassium 100 MG 100 MG 100 MG Hydrochloro Hydrochloro No 1{table QD Hydrochlor thiazide 25 thiazide 25 t} othiazide MG MG 25 MG Atorvastati Atorvastati No 1{table QD Atorvastat n Calcium n Calcium t} in Calcium 40 MG 40 MG 40 MG Allopurinol Allopurinol No Allopurino 100 MG 100 MG l 100 MG cyclobenzap cyclobenzap No cyclobenza rine rine lexie Escitalopra Escitalopra No 1{table QD Escitalopr m Oxalate 5 m Oxalate 5 t} am Oxalate MG MG 5 MG Losartan Losartan No 1{table QD Losartan Potassium Potassium t} Potassium 100 MG 100 MG 100 MG Fenofibrate Fenofibrate No 1{table QD Fenofibrat 145 MG 145 MG t} e 145 MG Triamcinolo Triamcinolo No Triamcinol ne ne one Acetonide Acetonide Acetonide 0.1 % 0.1 % 0.1 % Allopurinol Allopurinol No Allopurino 100 MG 100 MG l 100 MG metFORMIN metFORMIN No QD metFORMIN HCl 500 MG HCl 500 MG HCl 500 MG Hydrochloro Hydrochloro No 1{table QD Hydrochlor thiazide 25 thiazide 25 t} othiazide MG MG 25 MG cyclobenzap cyclobenzap No cyclobenza rine rine lexie Atorvastati Atorvastati No 1{table QD Atorvastat n Calcium n Calcium t} in Calcium 40 MG 40 MG 40 MG Pantoprazol Pantoprazol No 1{table QD Pantoprazo e Sodium 40 e Sodium 40 t} le Sodium MG MG 40 MG hydroCHLORO hydroCHLORO No hydroCHLOR thiazide 25 thiazide 25 Othiazide MG MG 25 MG Permethrin Permethrin No QD Permethrin 5 % 5 % 5 % Allopurinol Allopurinol No 1{table QD Allopurino 100 MG 100 MG t} l 100 MG Permethrin Permethrin No QD Permethrin 5 % 5 % 5 % Escitalopra Escitalopra No 1{table QD Escitalopr m Oxalate 5 m Oxalate 5 t} am Oxalate MG MG 5 MG Hydrochloro Hydrochloro No 1{table QD Hydrochlor thiazide 25 thiazide 25 t} othiazide MG MG 25 MG Escitalopra Escitalopra No 1{table QD Escitalopr m Oxalate 5 m Oxalate 5 t} am Oxalate MG MG 5 MG Fenofibrate Fenofibrate No 1{table QD Fenofibrat 145 MG 145 MG t} e 145 MG Pantoprazol Pantoprazol No 1{table QD Pantoprazo e Sodium 40 e Sodium 40 t} le Sodium MG MG 40 MG Allopurinol Allopurinol No Allopurino 100 MG 100 MG l 100 MG Permethrin Permethrin No QD Permethrin 5 % 5 % 5 % metFORMIN metFORMIN No QD metFORMIN HCl 500 MG HCl 500 MG HCl 500 MG Atorvastati Atorvastati No 1{table QD Atorvastat n Calcium n Calcium t} in Calcium 40 MG 40 MG 40 MG Allopurinol Allopurinol No 1{table QD Allopurino 100 MG 100 MG t} l 100 MG Fenofibrate Fenofibrate No 1{table QD Fenofibrat 145 MG 145 MG t} e 145 MG Triamcinolo Triamcinolo No Triamcinol ne ne one Acetonide Acetonide Acetonide 0.1 % 0.1 % 0.1 % cyclobenzap cyclobenzap No cyclobenza rine rine lexie Pantoprazol Pantoprazol No 1{table QD Pantoprazo e Sodium 40 e Sodium 40 t} le Sodium MG MG 40 MG Losartan Losartan No 1{table QD Losartan Potassium Potassium t} Potassium 100 MG 100 MG 100 MG Losartan Losartan No 1{table QD Losartan Potassium Potassium t} Potassium 100 MG 100 MG 100 MG Allopurinol Allopurinol No 1{table QD Allopurino 100 MG 100 MG t} l 100 MG Fenofibrate Fenofibrate No Fenofibrat 145 MG 145 MG e 145 MG Atorvastati Atorvastati No 1{table QD Atorvastat n Calcium n Calcium t} in Calcium 40 MG 40 MG 40 MG Mirtazapine Mirtazapine No 1{table QD Mirtazapin 15 MG 15 MG t_at_be e 15 MG dtime} Atorvastati Atorvastati No Atorvastat n Calcium n Calcium in Calcium 40 MG 40 MG 40 MG metFORMIN metFORMIN No QD metFORMIN HCl 500 MG HCl 500 MG HCl 500 MG amLODIPine amLODIPine No 1{table BID amLODIPine Besylate 5 Besylate 5 t} Besylate 5 MG MG MG Allopurinol Allopurinol No Allopurino 100 MG 100 MG l 100 MG Losartan Losartan No 1{table QD Losartan Potassium Potassium t} Potassium 100 MG 100 MG 100 MG Triamcinolo Triamcinolo No Triamcinol ne ne one Acetonide Acetonide Acetonide 0.1 % 0.1 % 0.1 % Escitalopra Escitalopra No 1{table QD Escitalopr m Oxalate 5 m Oxalate 5 t} am Oxalate MG MG 5 MG cyclobenzap cyclobenzap No cyclobenza rine rine lexie Hydrochloro Hydrochloro No 1{table QD Hydrochlor thiazide 25 thiazide 25 t} othiazide MG MG 25 MG Allopurinol Allopurinol No 1{table QD Allopurino 100 MG 100 MG t} l 100 MG Permethrin Permethrin No QD Permethrin 5 % 5 % 5 % metFORMIN metFORMIN No metFORMIN HCl 500 MG HCl 500 MG HCl 500 MG Pantoprazol Pantoprazol No 1{table QD Pantoprazo e Sodium 40 e Sodium 40 t} le Sodium MG MG 40 MG metFORMIN metFORMIN No QD metFORMIN HCl 500 MG HCl 500 MG HCl 500 MG Fenofibrate Fenofibrate No Fenofibrat 145 MG 145 MG e 145 MG Atorvastati Atorvastati No 1{table QD Atorvastat n Calcium n Calcium t} in Calcium 40 MG 40 MG 40 MG Mirtazapine Mirtazapine No 1{table QD Mirtazapin 15 MG 15 MG t_at_be e 15 MG dtime} Triamcinolo Triamcinolo No Triamcinol ne ne one Acetonide Acetonide Acetonide 0.1 % 0.1 % 0.1 % metFORMIN metFORMIN No QD metFORMIN HCl 500 MG HCl 500 MG HCl 500 MG amLODIPine amLODIPine No 1{table BID amLODIPine Besylate 5 Besylate 5 t} Besylate 5 MG MG MG Allopurinol Allopurinol No Allopurino 100 MG 100 MG l 100 MG Losartan Losartan No 1{table QD Losartan Potassium Potassium t} Potassium 100 MG 100 MG 100 MG Triamcinolo Triamcinolo No Triamcinol ne ne one Acetonide Acetonide Acetonide 0.1 % 0.1 % 0.1 % Escitalopra Escitalopra No 1{table QD Escitalopr m Oxalate 5 m Oxalate 5 t} am Oxalate MG MG 5 MG cyclobenzap cyclobenzap No cyclobenza rine rine lexie Hydrochloro Hydrochloro No 1{table QD Hydrochlor thiazide 25 thiazide 25 t} othiazide MG MG 25 MG Allopurinol Allopurinol No 1{table QD Allopurino 100 MG 100 MG t} l 100 MG Permethrin Permethrin No QD Permethrin 5 % 5 % 5 % Fenofibrate Fenofibrate No Fenofibrat 145 MG 145 MG e 145 MG Pantoprazol Pantoprazol No 1{table QD Pantoprazo e Sodium 40 e Sodium 40 t} le Sodium MG MG 40 MG Losartan Losartan No Losartan Potassium Potassium Potassium 100 MG 100 MG 100 MG Hydrochloro Hydrochloro No 1{table QD Hydrochlor thiazide 25 thiazide 25 t} othiazide MG MG 25 MG cyclobenzap cyclobenzap No cyclobenza rine rine lexie Atorvastati Atorvastati No 1{table QD Atorvastat n Calcium n Calcium t} in Calcium 40 MG 40 MG 40 MG Mirtazapine Mirtazapine No 1{table QD Mirtazapin 15 MG 15 MG t_at_be e 15 MG dtime} metFORMIN metFORMIN No QD metFORMIN HCl 500 MG HCl 500 MG HCl 500 MG amLODIPine amLODIPine No 1{table BID amLODIPine Besylate 5 Besylate 5 t} Besylate 5 MG MG MG Losartan Losartan No 1{table QD Losartan Potassium Potassium t} Potassium 100 MG 100 MG 100 MG Fenofibrate Fenofibrate No Fenofibrat 145 MG 145 MG e 145 MG Pantoprazol Pantoprazol No Pantoprazo e Sodium 40 e Sodium 40 le Sodium MG MG 40 MG Atorvastati Atorvastati No 1{table QD Atorvastat n Calcium n Calcium t} in Calcium 40 MG 40 MG 40 MG Hydrochloro Hydrochloro No 1{table QD Hydrochlor thiazide 25 thiazide 25 t} othiazide MG MG 25 MG Permethrin Permethrin No QD Permethrin 5 % 5 % 5 % Allopurinol Allopurinol No Allopurino 100 MG 100 MG l 100 MG Allopurinol Allopurinol No 1{table QD Allopurino 100 MG 100 MG t} l 100 MG Triamcinolo Triamcinolo No Triamcinol ne ne one Acetonide Acetonide Acetonide 0.1 % 0.1 % 0.1 % Escitalopra Escitalopra No 1{table QD Escitalopr m Oxalate 5 m Oxalate 5 t} am Oxalate MG MG 5 MG Allopurinol Allopurinol No Allopurino 100 MG 100 MG l 100 MG cyclobenzap cyclobenzap No cyclobenza rine rine lexie Atorvastati Atorvastati No 1{table QD Atorvastat n Calcium n Calcium t} in Calcium 40 MG 40 MG 40 MG Mirtazapine Mirtazapine No 1{table QD Mirtazapin 15 MG 15 MG t_at_be e 15 MG dtime} metFORMIN metFORMIN No QD metFORMIN HCl 500 MG HCl 500 MG HCl 500 MG Allopurinol Allopurinol No 1{table QD Allopurino 100 MG 100 MG t} l 100 MG Losartan Losartan No 1{table QD Losartan Potassium Potassium t} Potassium 100 MG 100 MG 100 MG Fenofibrate Fenofibrate No Fenofibrat 145 MG 145 MG e 145 MG Pantoprazol Pantoprazol No Pantoprazo e Sodium 40 e Sodium 40 le Sodium MG MG 40 MG Hydrochloro Hydrochloro No 1{table QD Hydrochlor thiazide 25 thiazide 25 t} othiazide MG MG 25 MG Permethrin Permethrin No QD Permethrin 5 % 5 % 5 % Allopurinol Allopurinol No Allopurino 100 MG 100 MG l 100 MG amLODIPine amLODIPine No 1{table BID amLODIPine Besylate 5 Besylate 5 t} Besylate 5 MG MG MG Triamcinolo Triamcinolo No Triamcinol ne ne one Acetonide Acetonide Acetonide 0.1 % 0.1 % 0.1 % Escitalopra Escitalopra No 1{table QD Escitalopr m Oxalate 5 m Oxalate 5 t} am Oxalate MG MG 5 MG Fenofibrate Fenofibrate No Fenofibrat 145 MG 145 MG e 145 MG Vitamin D Vitamin D No 1{capsu Vitamin D (Ergocalcif (Ergocalcif le} (Ergocalci anel) 1.25 anel) 1.25 ferol) MG (61892 MG (21152 1.25 MG UT) UT) (32948 UT) Pantoprazol Pantoprazol No Pantoprazo e Sodium 40 e Sodium 40 le Sodium MG MG 40 MG Escitalopra Escitalopra No 1{table QD Escitalopr m Oxalate 5 m Oxalate 5 t} am Oxalate MG MG 5 MG amLODIPine amLODIPine No 1{table BID amLODIPine Besylate 5 Besylate 5 t} Besylate 5 MG MG MG Atorvastati Atorvastati No 1{table QD Atorvastat n Calcium n Calcium t} in Calcium 40 MG 40 MG 40 MG Losartan Losartan No 1{table QD Losartan Potassium Potassium t} Potassium 100 MG 100 MG 100 MG metFORMIN metFORMIN No QD metFORMIN HCl 500 MG HCl 500 MG HCl 500 MG Magnesium Magnesium No 1{table QD Magnesium 250 MG 250 MG t_with_ 250 MG a_meal} Allopurinol Allopurinol No Allopurino 100 MG 100 MG l 100 MG cyclobenzap cyclobenzap No cyclobenza rine rine lexie hydroCHLORO hydroCHLORO No hydroCHLOR thiazide 25 thiazide 25 Othiazide MG MG 25 MG Permethrin Permethrin No QD Permethrin 5 % 5 % 5 % Escitalopra Escitalopra No 1{table QD Escitalopr m Oxalate 5 m Oxalate 5 t} am Oxalate MG MG 5 MG Fenofibrate Fenofibrate No 1{table QD Fenofibrat 145 MG 145 MG t} e 145 MG Pantoprazol Pantoprazol No 1{table QD Pantoprazo e Sodium 40 e Sodium 40 t} le Sodium MG MG 40 MG Losartan Losartan No 1{table QD Losartan Potassium Potassium t} Potassium 100 MG 100 MG 100 MG Allopurinol Allopurinol No 1{table QD Allopurino 100 MG 100 MG t} l 100 MG Atorvastati Atorvastati No Atorvastat n Calcium n Calcium in Calcium 40 MG 40 MG 40 MG metFORMIN metFORMIN No metFORMIN HCl 500 MG HCl 500 MG HCl 500 MG metFORMIN metFORMIN No QD metFORMIN HCl 500 MG HCl 500 MG HCl 500 MG Triamcinolo Triamcinolo No Triamcinol ne ne one Acetonide Acetonide Acetonide 0.1 % 0.1 % 0.1 % Fenofibrate Fenofibrate No Fenofibrat 145 MG 145 MG e 145 MG Losartan Losartan No Losartan Potassium Potassium Potassium 100 MG 100 MG 100 MG Hydrochloro Hydrochloro No 1{table QD Hydrochlor thiazide 25 thiazide 25 t} othiazide MG MG 25 MG Atorvastati Atorvastati No 1{table QD Atorvastat n Calcium n Calcium t} in Calcium 40 MG 40 MG 40 MG Allopurinol Allopurinol No Allopurino 100 MG 100 MG l 100 MG Losartan Losartan No 1{table QD Losartan Potassium Potassium t} Potassium 100 MG 100 MG 100 MG Atorvastati Atorvastati No 1{table QD Atorvastat n Calcium n Calcium t} in Calcium 40 MG 40 MG 40 MG Fenofibrate Fenofibrate No 1{table QD Fenofibrat 145 MG 145 MG t} e 145 MG metFORMIN metFORMIN No 1{table QD metFORMIN HCl 500 MG HCl 500 MG t_with_ HCl 500 MG a_meal} Hydrochloro Hydrochloro No 1{table QD Hydrochlor thiazide 25 thiazide 25 t} othiazide MG MG 25 MG Atorvastati Atorvastati No 1{table QD Atorvastat n Calcium n Calcium t} in Calcium 40 MG 40 MG 40 MG Losartan Losartan No 1{table QD Losartan Potassium Potassium t} Potassium 100 MG 100 MG 100 MG Hydrochloro Hydrochloro No 1{table QD Hydrochlor thiazide 25 thiazide 25 t} othiazide MG MG 25 MG Escitalopra Escitalopra No 1{table QD Escitalopr m Oxalate 5 m Oxalate 5 t} am Oxalate MG MG 5 MG metFORMIN metFORMIN No 1{table QD metFORMIN HCl 500 MG HCl 500 MG t_with_ HCl 500 MG a_meal} Fenofibrate Fenofibrate No 1{table QD Fenofibrat 145 MG 145 MG t} e 145 MG Allopurinol Allopurinol No 1{table QD Allopurino 100 MG 100 MG t} l 100 MG Losartan Losartan No 1{table QD Losartan Potassium Potassium t} Potassium 100 MG 100 MG 100 MG Atorvastati Atorvastati No 1{table QD Atorvastat n Calcium n Calcium t} in Calcium 40 MG 40 MG 40 MG metFORMIN metFORMIN No 1{table QD metFORMIN HCl 500 MG HCl 500 MG t_with_ HCl 500 MG a_meal} Escitalopra Escitalopra No 1{table QD Escitalopr m Oxalate 5 m Oxalate 5 t} am Oxalate MG MG 5 MG Hydrochloro Hydrochloro No 1{table QD Hydrochlor thiazide 25 thiazide 25 t} othiazide MG MG 25 MG Allopurinol Allopurinol No 1{table QD Allopurino 100 MG 100 MG t} l 100 MG Fenofibrate Fenofibrate No 1{table QD Fenofibrat 145 MG 145 MG t} e 145 MG Losartan Losartan No 1{table QD Losartan Potassium Potassium t} Potassium 100 MG 100 MG 100 MG Atorvastati Atorvastati No 1{table QD Atorvastat n Calcium n Calcium t} in Calcium 40 MG 40 MG 40 MG metFORMIN metFORMIN No 1{table QD metFORMIN HCl 500 MG HCl 500 MG t_with_ HCl 500 MG a_meal} Escitalopra Escitalopra No 1{table QD Escitalopr m Oxalate 5 m Oxalate 5 t} am Oxalate MG MG 5 MG Hydrochloro Hydrochloro No 1{table QD Hydrochlor thiazide 25 thiazide 25 t} othiazide MG MG 25 MG Allopurinol Allopurinol No 1{table QD Allopurino 100 MG 100 MG t} l 100 MG Fenofibrate Fenofibrate No 1{table QD Fenofibrat 145 MG 145 MG t} e 145 MG Losartan Losartan No 1{table QD Losartan Potassium Potassium t} Potassium 100 MG 100 MG 100 MG Atorvastati Atorvastati No 1{table QD Atorvastat n Calcium n Calcium t} in Calcium 40 MG 40 MG 40 MG metFORMIN metFORMIN No 1{table QD metFORMIN HCl 500 MG HCl 500 MG t_with_ HCl 500 MG a_meal} Escitalopra Escitalopra No 1{table QD Escitalopr m Oxalate 5 m Oxalate 5 t} am Oxalate MG MG 5 MG Hydrochloro Hydrochloro No 1{table QD Hydrochlor thiazide 25 thiazide 25 t} othiazide MG MG 25 MG Allopurinol Allopurinol No 1{table QD Allopurino 100 MG 100 MG t} l 100 MG Fenofibrate Fenofibrate No 1{table QD Fenofibrat 145 MG 145 MG t} e 145 MG metFORMIN metFORMIN No 1{table QD metFORMIN HCl 500 MG HCl 500 MG t_with_ HCl 500 MG a_meal} Escitalopra Escitalopra No 1{table QD Escitalopr m Oxalate 5 m Oxalate 5 t} am Oxalate MG MG 5 MG Losartan Losartan No 1{table QD Losartan Potassium Potassium t} Potassium 100 MG 100 MG 100 MG Atorvastati Atorvastati No 1{table QD Atorvastat n Calcium n Calcium t} in Calcium 40 MG 40 MG 40 MG Allopurinol Allopurinol No 1{table QD Allopurino 100 MG 100 MG t} l 100 MG Pantoprazol Pantoprazol No 1{table QD Pantoprazo e Sodium 40 e Sodium 40 t} le Sodium MG MG 40 MG Hydrochloro Hydrochloro No 1{table QD Hydrochlor thiazide 25 thiazide 25 t} othiazide MG MG 25 MG Fenofibrate Fenofibrate No 1{table QD Fenofibrat 145 MG 145 MG t} e 145 MG Atorvastati Atorvastati No 1{table QD Atorvastat n Calcium n Calcium t} in Calcium 40 MG 40 MG 40 MG Allopurinol Allopurinol No 1{table QD Allopurino 100 MG 100 MG t} l 100 MG cyclobenzap cyclobenzap No cyclobenza rine rine lexie Pantoprazol Pantoprazol No 1{table QD Pantoprazo e Sodium 40 e Sodium 40 t} le Sodium MG MG 40 MG Hydrochloro Hydrochloro No 1{table QD Hydrochlor thiazide 25 thiazide 25 t} othiazide MG MG 25 MG Fenofibrate Fenofibrate No 1{table QD Fenofibrat 145 MG 145 MG t} e 145 MG metFORMIN metFORMIN No 1{table QD metFORMIN HCl 500 MG HCl 500 MG t_with_ HCl 500 MG a_meal} Escitalopra Escitalopra No 1{table QD Escitalopr m Oxalate 5 m Oxalate 5 t} am Oxalate MG MG 5 MG Losartan Losartan No 1{table QD Losartan Potassium Potassium t} Potassium 100 MG 100 MG 100 MG Losartan Losartan No 1{table QD Losartan Potassium Potassium t} Potassium 100 MG 100 MG 100 MG Allopurinol Allopurinol No 1{table QD Allopurino 100 MG 100 MG t} l 100 MG Fenofibrate Fenofibrate No 1{table QD Fenofibrat 145 MG 145 MG t} e 145 MG Escitalopra Escitalopra No 1{table QD Escitalopr m Oxalate 5 m Oxalate 5 t} am Oxalate MG MG 5 MG metFORMIN metFORMIN No 1{table QD metFORMIN HCl 500 MG HCl 500 MG t_with_ HCl 500 MG a_meal} Pantoprazol Pantoprazol No 1{table QD Pantoprazo e Sodium 40 e Sodium 40 t} le Sodium MG MG 40 MG Hydrochloro Hydrochloro No 1{table QD Hydrochlor thiazide 25 thiazide 25 t} othiazide MG MG 25 MG cyclobenzap cyclobenzap No cyclobenza rine rine lexie Atorvastati Atorvastati No 1{table QD Atorvastat n Calcium n Calcium t} in Calcium 40 MG 40 MG 40 MG Losartan Losartan No 1{table QD Losartan Potassium Potassium t} Potassium 100 MG 100 MG 100 MG Allopurinol Allopurinol No 1{table QD Allopurino 100 MG 100 MG t} l 100 MG Fenofibrate Fenofibrate No 1{table QD Fenofibrat 145 MG 145 MG t} e 145 MG Escitalopra Escitalopra No 1{table QD Escitalopr m Oxalate 5 m Oxalate 5 t} am Oxalate MG MG 5 MG metFORMIN metFORMIN No 1{table QD metFORMIN HCl 500 MG HCl 500 MG t_with_ HCl 500 MG a_meal} Pantoprazol Pantoprazol No 1{table QD Pantoprazo e Sodium 40 e Sodium 40 t} le Sodium MG MG 40 MG Hydrochloro Hydrochloro No 1{table QD Hydrochlor thiazide 25 thiazide 25 t} othiazide MG MG 25 MG cyclobenzap cyclobenzap No cyclobenza rine rine lexie Atorvastati Atorvastati No 1{table QD Atorvastat n Calcium n Calcium t} in Calcium 40 MG 40 MG 40 MG Atorvastati Atorvastati No 1{table QD Atorvastat n Calcium n Calcium t} in Calcium 40 MG 40 MG 40 MG Escitalopra Escitalopra No 1{table QD Escitalopr m Oxalate 5 m Oxalate 5 t} am Oxalate MG MG 5 MG Pantoprazol Pantoprazol No 1{table QD Pantoprazo e Sodium 40 e Sodium 40 t} le Sodium MG MG 40 MG Losartan Losartan No 1{table QD Losartan Potassium Potassium t} Potassium 100 MG 100 MG 100 MG cyclobenzap cyclobenzap No cyclobenza rine rine lexie Hydrochloro Hydrochloro No 1{table QD Hydrochlor thiazide 25 thiazide 25 t} othiazide MG MG 25 MG metFORMIN metFORMIN No 1{table QD metFORMIN HCl 500 MG HCl 500 MG t_with_ HCl 500 MG a_meal} Allopurinol Allopurinol No 1{table QD Allopurino 100 MG 100 MG t} l 100 MG Fenofibrate Fenofibrate No 1{table QD Fenofibrat 145 MG 145 MG t} e 145 MG Escitalopra Escitalopra No 1{table QD Escitalopr m Oxalate 5 m Oxalate 5 t} am Oxalate MG MG 5 MG Fenofibrate Fenofibrate No Fenofibrat 145 MG 145 MG e 145 MG Losartan Losartan No Losartan Potassium Potassium Potassium 100 MG 100 MG 100 MG Allopurinol Allopurinol No Allopurino 100 MG 100 MG l 100 MG metFORMIN metFORMIN No metFORMIN HCl 500 MG HCl 500 MG HCl 500 MG Pantoprazol Pantoprazol No 1{table QD Pantoprazo e Sodium 40 e Sodium 40 t} le Sodium MG MG 40 MG cyclobenzap cyclobenzap No cyclobenza rine rine lexie hydroCHLORO hydroCHLORO No hydroCHLOR thiazide 25 thiazide 25 Othiazide MG MG 25 MG Atorvastati Atorvastati No Atorvastat n Calcium n Calcium in Calcium 40 MG 40 MG 40 MG Escitalopra Escitalopra No 1{table QD Escitalopr m Oxalate 5 m Oxalate 5 t} am Oxalate MG MG 5 MG Fenofibrate Fenofibrate No Fenofibrat 145 MG 145 MG e 145 MG Losartan Losartan No Losartan Potassium Potassium Potassium 100 MG 100 MG 100 MG Allopurinol Allopurinol No Allopurino 100 MG 100 MG l 100 MG metFORMIN metFORMIN No metFORMIN HCl 500 MG HCl 500 MG HCl 500 MG Pantoprazol Pantoprazol No 1{table QD Pantoprazo e Sodium 40 e Sodium 40 t} le Sodium MG MG 40 MG cyclobenzap cyclobenzap No cyclobenza rine rine lexie hydroCHLORO hydroCHLORO No hydroCHLOR thiazide 25 thiazide 25 Othiazide MG MG 25 MG Atorvastati Atorvastati No Atorvastat n Calcium n Calcium in Calcium 40 MG 40 MG 40 MG hydroCHLORO hydroCHLORO No hydroCHLOR thiazide 25 thiazide 25 Othiazide MG MG 25 MG Atorvastati Atorvastati No Atorvastat n Calcium n Calcium in Calcium 40 MG 40 MG 40 MG Pantoprazol Pantoprazol No 1{table QD Pantoprazo e Sodium 40 e Sodium 40 t} le Sodium MG MG 40 MG Escitalopra Escitalopra No 1{table QD Escitalopr m Oxalate 5 m Oxalate 5 t} am Oxalate MG MG 5 MG Losartan Losartan No Losartan Potassium Potassium Potassium 100 MG 100 MG 100 MG Allopurinol Allopurinol No Allopurino 100 MG 100 MG l 100 MG metFORMIN metFORMIN No metFORMIN HCl 500 MG HCl 500 MG HCl 500 MG cyclobenzap cyclobenzap No cyclobenza rine rine lexie Fenofibrate Fenofibrate No Fenofibrat 145 MG 145 MG e 145 MG hydroCHLORO hydroCHLORO No hydroCHLOR thiazide 25 thiazide 25 Othiazide MG MG 25 MG Atorvastati Atorvastati No Atorvastat n Calcium n Calcium in Calcium 40 MG 40 MG 40 MG Pantoprazol Pantoprazol No 1{table QD Pantoprazo e Sodium 40 e Sodium 40 t} le Sodium MG MG 40 MG Escitalopra Escitalopra No 1{table QD Escitalopr m Oxalate 5 m Oxalate 5 t} am Oxalate MG MG 5 MG Losartan Losartan No Losartan Potassium Potassium Potassium 100 MG 100 MG 100 MG Allopurinol Allopurinol No Allopurino 100 MG 100 MG l 100 MG metFORMIN metFORMIN No metFORMIN HCl 500 MG HCl 500 MG HCl 500 MG cyclobenzap cyclobenzap No cyclobenza rine rine lexie Fenofibrate Fenofibrate No Fenofibrat 145 MG 145 MG e 145 MG Allopurinol Allopurinol No Allopurino 100 MG 100 MG l 100 MG cyclobenzap cyclobenzap No cyclobenza rine rine lexie Escitalopra Escitalopra No 1{table QD Escitalopr m Oxalate 5 m Oxalate 5 t} am Oxalate MG MG 5 MG Losartan Losartan No Losartan Potassium Potassium Potassium 100 MG 100 MG 100 MG hydroCHLORO hydroCHLORO No hydroCHLOR thiazide 25 thiazide 25 Othiazide MG MG 25 MG metFORMIN metFORMIN No metFORMIN HCl 500 MG HCl 500 MG HCl 500 MG Atorvastati Atorvastati No Atorvastat n Calcium n Calcium in Calcium 40 MG 40 MG 40 MG Fenofibrate Fenofibrate No Fenofibrat 145 MG 145 MG e 145 MG Pantoprazol Pantoprazol No 1{table QD Pantoprazo e Sodium 40 e Sodium 40 t} le Sodium MG MG 40 MG Allopurinol Allopurinol No Allopurino 100 MG 100 MG l 100 MG cyclobenzap cyclobenzap No cyclobenza rine rine lexie Escitalopra Escitalopra No 1{table QD Escitalopr m Oxalate 5 m Oxalate 5 t} am Oxalate MG MG 5 MG Losartan Losartan No Losartan Potassium Potassium Potassium 100 MG 100 MG 100 MG hydroCHLORO hydroCHLORO No hydroCHLOR thiazide 25 thiazide 25 Othiazide MG MG 25 MG metFORMIN metFORMIN No metFORMIN HCl 500 MG HCl 500 MG HCl 500 MG Atorvastati Atorvastati No Atorvastat n Calcium n Calcium in Calcium 40 MG 40 MG 40 MG Fenofibrate Fenofibrate No Fenofibrat 145 MG 145 MG e 145 MG Pantoprazol Pantoprazol No 1{table QD Pantoprazo e Sodium 40 e Sodium 40 t} le Sodium MG MG 40 MG Fenofibrate Fenofibrate No 1{table QD Fenofibrat 145 MG 145 MG t} e 145 MG Triamcinolo Triamcinolo No Triamcinol ne ne one Acetonide Acetonide Acetonide 0.1 % 0.1 % 0.1 % Losartan Losartan No Losartan Potassium Potassium Potassium 100 MG 100 MG 100 MG cyclobenzap cyclobenzap No cyclobenza rine rine lexie metFORMIN metFORMIN No metFORMIN HCl 500 MG HCl 500 MG HCl 500 MG metFORMIN metFORMIN No 1{table QD metFORMIN HCl 500 MG HCl 500 MG t_with_ HCl 500 MG a_meal} Atorvastati Atorvastati No 1{table QD Atorvastat n Calcium n Calcium t} in Calcium 40 MG 40 MG 40 MG Allopurinol Allopurinol No 1{table QD Allopurino 100 MG 100 MG t} l 100 MG Fenofibrate Fenofibrate No Fenofibrat 145 MG 145 MG e 145 MG Permethrin Permethrin No QD Permethrin 5 % 5 % 5 % Losartan Losartan No 1{table QD Losartan Potassium Potassium t} Potassium 100 MG 100 MG 100 MG Escitalopra Escitalopra No 1{table QD Escitalopr m Oxalate 5 m Oxalate 5 t} am Oxalate MG MG 5 MG Hydrochloro Hydrochloro No 1{table QD Hydrochlor thiazide 25 thiazide 25 t} othiazide MG MG 25 MG Pantoprazol Pantoprazol No 1{table QD Pantoprazo e Sodium 40 e Sodium 40 t} le Sodium MG MG 40 MG hydroCHLORO hydroCHLORO No hydroCHLOR thiazide 25 thiazide 25 Othiazide MG MG 25 MG Allopurinol Allopurinol No Allopurino 100 MG 100 MG l 100 MG Atorvastati Atorvastati No Atorvastat n Calcium n Calcium in Calcium 40 MG 40 MG 40 MG Fenofibrate Fenofibrate No 1{table QD Fenofibrat 145 MG 145 MG t} e 145 MG Triamcinolo Triamcinolo No Triamcinol ne ne one Acetonide Acetonide Acetonide 0.1 % 0.1 % 0.1 % Losartan Losartan No Losartan Potassium Potassium Potassium 100 MG 100 MG 100 MG cyclobenzap cyclobenzap No cyclobenza rine rine lexie metFORMIN metFORMIN No metFORMIN HCl 500 MG HCl 500 MG HCl 500 MG metFORMIN metFORMIN No 1{table QD metFORMIN HCl 500 MG HCl 500 MG t_with_ HCl 500 MG a_meal} Atorvastati Atorvastati No 1{table QD Atorvastat n Calcium n Calcium t} in Calcium 40 MG 40 MG 40 MG Allopurinol Allopurinol No 1{table QD Allopurino 100 MG 100 MG t} l 100 MG Fenofibrate Fenofibrate No Fenofibrat 145 MG 145 MG e 145 MG Permethrin Permethrin No QD Permethrin 5 % 5 % 5 % Losartan Losartan No 1{table QD Losartan Potassium Potassium t} Potassium 100 MG 100 MG 100 MG Escitalopra Escitalopra No 1{table QD Escitalopr m Oxalate 5 m Oxalate 5 t} am Oxalate MG MG 5 MG Hydrochloro Hydrochloro No 1{table QD Hydrochlor thiazide 25 thiazide 25 t} othiazide MG MG 25 MG Pantoprazol Pantoprazol No 1{table QD Pantoprazo e Sodium 40 e Sodium 40 t} le Sodium MG MG 40 MG hydroCHLORO hydroCHLORO No hydroCHLOR thiazide 25 thiazide 25 Othiazide MG MG 25 MG Allopurinol Allopurinol No Allopurino 100 MG 100 MG l 100 MG Atorvastati Atorvastati No Atorvastat n Calcium n Calcium in Calcium 40 MG 40 MG 40 MG Allopurinol Allopurinol No 1{table QD Allopurino 100 MG 100 MG t} l 100 MG Atorvastati Atorvastati No 1{table QD Atorvastat n Calcium n Calcium t} in Calcium 40 MG 40 MG 40 MG hydroCHLORO hydroCHLORO No hydroCHLOR thiazide 25 thiazide 25 Othiazide MG MG 25 MG metFORMIN metFORMIN No 1{table QD metFORMIN HCl 500 MG HCl 500 MG t_with_ HCl 500 MG a_meal} Fenofibrate Fenofibrate No 1{table QD Fenofibrat 145 MG 145 MG t} e 145 MG Losartan Losartan No Losartan Potassium Potassium Potassium 100 MG 100 MG 100 MG Triamcinolo Triamcinolo No Triamcinol ne ne one Acetonide Acetonide Acetonide 0.1 % 0.1 % 0.1 % Escitalopra Escitalopra No 1{table QD Escitalopr m Oxalate 5 m Oxalate 5 t} am Oxalate MG MG 5 MG Fenofibrate Fenofibrate No Fenofibrat 145 MG 145 MG e 145 MG Hydrochloro Hydrochloro No 1{table QD Hydrochlor thiazide 25 thiazide 25 t} othiazide MG MG 25 MG cyclobenzap cyclobenzap No cyclobenza rine rine lexie metFORMIN metFORMIN No metFORMIN HCl 500 MG HCl 500 MG HCl 500 MG Losartan Losartan No 1{table QD Losartan Potassium Potassium t} Potassium 100 MG 100 MG 100 MG Permethrin Permethrin No QD Permethrin 5 % 5 % 5 % Atorvastati Atorvastati No Atorvastat n Calcium n Calcium in Calcium 40 MG 40 MG 40 MG Allopurinol Allopurinol No Allopurino 100 MG 100 MG l 100 MG Pantoprazol Pantoprazol No 1{table QD Pantoprazo e Sodium 40 e Sodium 40 t} le Sodium MG MG 40 MG Allopurinol Allopurinol No 1{table QD Allopurino 100 MG 100 MG t} l 100 MG Atorvastati Atorvastati No 1{table QD Atorvastat n Calcium n Calcium t} in Calcium 40 MG 40 MG 40 MG hydroCHLORO hydroCHLORO No hydroCHLOR thiazide 25 thiazide 25 Othiazide MG MG 25 MG metFORMIN metFORMIN No 1{table QD metFORMIN HCl 500 MG HCl 500 MG t_with_ HCl 500 MG a_meal} Fenofibrate Fenofibrate No 1{table QD Fenofibrat 145 MG 145 MG t} e 145 MG Losartan Losartan No Losartan Potassium Potassium Potassium 100 MG 100 MG 100 MG Triamcinolo Triamcinolo No Triamcinol ne ne one Acetonide Acetonide Acetonide 0.1 % 0.1 % 0.1 % Escitalopra Escitalopra No 1{table QD Escitalopr m Oxalate 5 m Oxalate 5 t} am Oxalate MG MG 5 MG Fenofibrate Fenofibrate No Fenofibrat 145 MG 145 MG e 145 MG Hydrochloro Hydrochloro No 1{table QD Hydrochlor thiazide 25 thiazide 25 t} othiazide MG MG 25 MG cyclobenzap cyclobenzap No cyclobenza rine rine lexie metFORMIN metFORMIN No metFORMIN HCl 500 MG HCl 500 MG HCl 500 MG Losartan Losartan No 1{table QD Losartan Potassium Potassium t} Potassium 100 MG 100 MG 100 MG Permethrin Permethrin No QD Permethrin 5 % 5 % 5 % Atorvastati Atorvastati No Atorvastat n Calcium n Calcium in Calcium 40 MG 40 MG 40 MG Allopurinol Allopurinol No Allopurino 100 MG 100 MG l 100 MG Pantoprazol Pantoprazol No 1{table QD Pantoprazo e Sodium 40 e Sodium 40 t} le Sodium MG MG 40 MG Allopurinol Allopurinol No 1{table QD Allopurino 100 MG 100 MG t} l 100 MG Atorvastati Atorvastati No 1{table QD Atorvastat n Calcium n Calcium t} in Calcium 40 MG 40 MG 40 MG hydroCHLORO hydroCHLORO No hydroCHLOR thiazide 25 thiazide 25 Othiazide MG MG 25 MG metFORMIN metFORMIN No 1{table QD metFORMIN HCl 500 MG HCl 500 MG t_with_ HCl 500 MG a_meal} Fenofibrate Fenofibrate No 1{table QD Fenofibrat 145 MG 145 MG t} e 145 MG Losartan Losartan No Losartan Potassium Potassium Potassium 100 MG 100 MG 100 MG Triamcinolo Triamcinolo No Triamcinol ne ne one Acetonide Acetonide Acetonide 0.1 % 0.1 % 0.1 % Escitalopra Escitalopra No 1{table QD Escitalopr m Oxalate 5 m Oxalate 5 t} am Oxalate MG MG 5 MG Fenofibrate Fenofibrate No Fenofibrat 145 MG 145 MG e 145 MG Hydrochloro Hydrochloro No 1{table QD Hydrochlor thiazide 25 thiazide 25 t} othiazide MG MG 25 MG cyclobenzap cyclobenzap No cyclobenza rine rine lexie metFORMIN metFORMIN No metFORMIN HCl 500 MG HCl 500 MG HCl 500 MG Losartan Losartan No 1{table QD Losartan Potassium Potassium t} Potassium 100 MG 100 MG 100 MG Permethrin Permethrin No QD Permethrin 5 % 5 % 5 % Atorvastati Atorvastati No Atorvastat n Calcium n Calcium in Calcium 40 MG 40 MG 40 MG Allopurinol Allopurinol No Allopurino 100 MG 100 MG l 100 MG Pantoprazol Pantoprazol No 1{table QD Pantoprazo e Sodium 40 e Sodium 40 t} le Sodium MG MG 40 MG cyclobenzap cyclobenzap No cyclobenza rine rine lexie hydroCHLORO hydroCHLORO No hydroCHLOR thiazide 25 thiazide 25 Othiazide MG MG 25 MG Permethrin Permethrin No QD Permethrin 5 % 5 % 5 % Escitalopra Escitalopra No 1{table QD Escitalopr m Oxalate 5 m Oxalate 5 t} am Oxalate MG MG 5 MG Fenofibrate Fenofibrate No 1{table QD Fenofibrat 145 MG 145 MG t} e 145 MG Pantoprazol Pantoprazol No 1{table QD Pantoprazo e Sodium 40 e Sodium 40 t} le Sodium MG MG 40 MG Losartan Losartan No 1{table QD Losartan Potassium Potassium t} Potassium 100 MG 100 MG 100 MG Allopurinol Allopurinol No 1{table QD Allopurino 100 MG 100 MG t} l 100 MG Atorvastati Atorvastati No Atorvastat n Calcium n Calcium in Calcium 40 MG 40 MG 40 MG metFORMIN metFORMIN No metFORMIN HCl 500 MG HCl 500 MG HCl 500 MG metFORMIN metFORMIN No QD metFORMIN HCl 500 MG HCl 500 MG HCl 500 MG Triamcinolo Triamcinolo No Triamcinol ne ne one Acetonide Acetonide Acetonide 0.1 % 0.1 % 0.1 % Allopurinol Allopurinol 2021- No 1{table QD Allopurino 100 MG 100 MG 03-16 t} l 100 MG 00:00 :00 Immunizations Ordered Immunization Filled Immunization Date Status Commen ts Source Name Name FLUZONE HIGH DOSE FLUZONE HIGH DOSE 2021-12-24 Completed [facility] - OVER [facility] OVER 65 12:37:00 [facility] FLUZONE HIGH DOSE FLUZONE HIGH DOSE 2021-12-24 Completed [facility] - OVER 65 OVER 65 12:37:00 [facility] FLUZONE HIGH DOSE FLUZONE HIGH DOSE 2021-12-24 Completed [facility] - OVER 65 OVER 65 12:37:00 [facility] FLUZONE HIGH DOSE FLUZONE HIGH DOSE 2021-12-24 Completed [facility] - OVER 65 OVER 65 12:37:00 [facility] FLUZONE HIGH DOSE FLUZONE HIGH DOSE 2021-12-24 Completed [facility] - OVER 65 OVER 65 12:37:00 [facility] FLUZONE HIGH DOSE FLUZONE HIGH DOSE 2021-12-24 Completed [facility] - OVER 65 OVER 65 12:37:00 [facility] FLUZONE HIGH DOSE FLUZONE HIGH DOSE 2021-12-24 Completed [facility] - OVER 65 OVER 65 12:37:[facility] 2021-[facility]10 [facility] (Low Dose Vaccine (Low Dose 10:01:00 [facility] [employer] Booster) [facility]) [facility] 2021-02-10 [facility] (Low Dose Vaccine (Low Dose 10:01:[address] [facility] [employer] Booster) Booster) [facility] COVID-19 2021-02-10 Com[facility]ine (Low Dose Vaccine (Low Dose 10:01:[address] [facility] Booster) Booster) [facility] [address] COVID19 2021-02-10 Completed [facility] Vaccine (Low Dose Vaccine (Low Dose 10:01:[address] [facility] Booster) Booster) [facility] [address] [facility]ine (Low Dose Vaccine (Low Dose 10:01:[address] [facility] Booster) Booster) [facility] [address] [facility]-10 [facility] Vaccine (Low Dose Vaccine (Low Dose 10:01:[address] [facility] Booster) Booster) [facility] [address] [facility]-10 [facility] Vaccine (Low Dose Vaccine (Low Dose 10:01:[address] [facility] Booster) Booster) [facility] [address] [facility]-02-10 [facility] Vaccine (Low Dose Vaccine (Low Dose 10:01:[address] [facility] Booster) Booster) [facility] [address] [facility]-02-10 [facility] Vaccine (Low Dose Vaccine (Low Dose 10:01:[address] [facility] Booster) Booster) [facility] [address] [facility] 2021-02-10 [facility] Vaccine (Low Dose Vaccine (Low Dose 10:01:[address] [facility] Booster) Booster) [facility] [address] [facility] 2021-02-10 [facility] Vaccine (Low Dose Vaccine (Low Dose 10:01:[address] [facility] Booster) Booster) [facility] [address] [facility] 2021-02-10 [facility] Vaccine (Low Dose Vaccine (Low Dose 10:01:[address] [facility] Booster) Booster) [facility] [address] [facility] 2021-02-10 [facility] Vaccine (Low Dose Vaccine (Low Dose 10:01:[address] [facility] Booster) Booster) [facility] [address] [facility] 2021-02-10 Com[facility] Vaccine (Low Dose Vaccine (Low Dose 10:01:[address] [facility] Booster) Booster) [facility] [address] [facility] 2021-02-10 Com[facility] Vaccine (Low Dose Vaccine (Low Dose 10:01:[address] [facility] Booster) Booster) [facility] [address] [facility] 2021-02-10 [facility]ine (Low Dose Vaccine (Low Dose 10:01:[address] [facility] Booster) [facility] [facility]-02-10 [facility] Vaccine (Low Dose Vaccine (Low Dose 10:01:[address] [facility] Booster) [facility]oster) [facility] [facility] 2021-02-10 [facility] Vaccine (Low Dose Vaccine (Low Dose 10:01:[address] [facility] Booster) Booster) [facility] [place] [facility] 2021-02-10 [facility] Vaccine (Low Dose Vaccine (Low Dose 10:01:[address] [facility] Booster) Booster) [facility] [place] [facility] 2021-02-10 [facility] Vaccine (Low Dose Vaccine (Low Dose 10:01:[address] [facility] Booster) Booster) [facility] [address] [facility] 2021-02-10 Com[facility] Vaccine (Low Dose Vaccine (Low Dose 10:01:[address] [facility] Booster) Booster) [facility] [address] [facility] 2021-02-10 Com[facility] Vaccine (Low Dose Vaccine (Low Dose 10:01:[address] [facility] Booster) Booster) [facility] [address] [facility] 2021-02-10 Com[facility] Vaccine (Low Dose Vaccine (Low Dose 10:01:[address] [facility] Booster) Booster) [facility] [address] [facility] 2021-02-10 Com[facility] Vaccine (Low Dose Vaccine (Low Dose 10:01:[address] [facility] Booster) Booster) [facility] 2021-02-10 Com[facility] (Low Dose Vaccine (Low Dose 10:01:[address] [facility] Booster) Booster) [facility] COVIDSanthosh [facility] COVIDSanthosh 2021-02-10 Completed [facility] Vaccine (Low Dose Vaccine (Low Dose 10:01:[address] [facility] Booster) Booster) [facility] [address] COVIDSanthosh 2021-02-10 Completed [facility] Vaccine (Low Dose Vaccine (Low Dose 10:01:[address] [facility] Booster) Booster) [facility] [address] [facility] 2021-02-10 Com[facility] Vaccine (Low Dose Vaccine (Low Dose 10:01:[address] [facility] Booster) Booster) [facility] [address] COVIDSanthosh 2021-02-10 Completed [facility] Vaccine (Low Dose Vaccine (Low Dose 10:01:[address] [facility] Booster) Booster) [facility] [address] COVIDSanthosh 2021-02-10 Completed [facility] Vaccine (Low Dose Vaccine (Low Dose 10:01:[address] [facility] Booster) Booster) [facility] [address] COVIDSanthosh 2021-02-10 Completed [facility] Vaccine (Low Dose Vaccine (Low Dose 10:01:[address] [facility] Booster) Booster) [facility] FluAD FluAD 2020-11-27 Completed [facility] - 10:33:00 [facility] FluAD FluAD 2020-11-27 Completed [facility] - 10:33:00 [facility] FluAD FluAD 2020-11-27 Completed [facility] - 10:33:00 [facility] FluAD FluAD 2020-11-27 Completed [facility] - 10:33:00 [facility] FluAD FluAD 2020-11-27 Completed [facility] - 10:33:00 [facility] FluAD FluAD 2020-11-27 Completed [facility] - 10:33:00 [facility] FluAD FluAD 2020-11-27 Completed [facility] - 10:33:00 [facility] FluAD FluAD 2020-11-27 Completed [facility] - 10:33:00 [facility] FluAD FluAD 2020-11-27 Completed [facility] - 10:33:00 [facility] FluAD FluAD 2020-11-27 Completed [facility] - 10:33:00 [facility] FluAD FluAD 2020-11-27 Completed [facility] - 10:33:00 [facility] FluAD FluAD 2020-11-27 Completed [facility] - 10:33:00 [facility] FluAD FluAD 2020-11-27 Completed [facility] - 10:33:00 [facility] FluAD FluAD 2020-11-27 Completed [facility] - 10:33:00 [facility] FluAD FluAD 2020-11-27 Completed [facility] - 10:33:00 [facility] FluAD FluAD 2020-11-27 Completed [facility] - 10:33:00 [facility] FluAD FluAD 2020-11-27 Completed [facility] - 10:33:00 [facility] FluAD FluAD 2020-11-27 Completed [facility] - 10:33:00 [facility] FluAD FluAD 2020-11-27 Completed [facility] - 10:33:00 [facility] FluAD FluAD 2020-11-27 Completed [facility] - 10:33:00 [facility] FluAD FluAD 2020-11-27 Completed [facility] - 10:33:00 [facility] FluAD FluAD 2020-11-27 Completed [facility] - 10:33:00 [facility] FluAD FluAD 2020-11-27 Completed [facility] - 10:33:00 [facility] FluAD FluAD 2020-11-27 Completed [facility] - 10:33:00 [facility] FluAD FluAD 2020-11-27 Completed [facility] - 10:33:00 [facility] FluAD FluAD 2020-11-27 Completed [facility] - 10:33:00 [facility] FluAD FluAD 2020-11-27 Completed [facility] - 10:33:00 [facility] FluAD FluAD 2020-11-27 Completed [facility] - 10:33:00 [facility] FluAD FluAD 2020-11-27 Completed [facility] - 10:33:00 [facility] FluAD FluAD 2020-11-27 Completed [facility] - 10:33:00 [facility] FluAD FluAD 2020-11-27 Completed [facility] - 10:33:00 [facility] FluAD FluAD 2020-11-27 Completed [facility] - 10:33:00 [facility] FluAD FluAD 2020-11-27 Completed [facility] - 10:33:00 [facility] Prevnar 13 (PCV13) Prevnar 13 (PCV13) 2020-11-27 Completed [facility] - 10:32:00 [facility] Prevnar 13 (PCV13) Prevnar 13 (PCV13) 2020-11-27 Completed [facility] - 10:32:00 [facility] Prevnar 13 (PCV13) Prevnar 13 (PCV13) 2020-11-27 Completed [facility] - 10:32:00 [facility] Prevnar 13 (PCV13) Prevnar 13 (PCV13) 2020-11-27 Completed [facility] - 10:32:00 [facility] Prevnar 13 (PCV13) Prevnar 13 (PCV13) 2020-11-27 Completed [facility] - 10:32:00 [facility] Prevnar 13 (PCV13) Prevnar 13 (PCV13) 2020-11-27 Completed [facility] - 10:32:00 [facility] Prevnar 13 (PCV13) Prevnar 13 (PCV13) 2020-11-27 Completed [facility] - 10:32:00 [facility] Prevnar 13 (PCV13) Prevnar 13 (PCV13) 2020-11-27 Completed [facility] - 10:32:00 [facility] Prevnar 13 (PCV13) Prevnar 13 (PCV13) 2020-11-27 Completed [facility] - 10:32:00 [facility] Prevnar 13 (PCV13) Prevnar 13 (PCV13) 2020-11-27 Completed [facility] - 10:32:00 [facility] Prevnar 13 (PCV13) Prevnar 13 (PCV13) 2020-11-27 Completed [facility] - 10:32:00 [facility] Prevnar 13 (PCV13) Prevnar 13 (PCV13) 2020-11-27 Completed [facility] - 10:32:00 [facility] Prevnar 13 (PCV13) Prevnar 13 (PCV13) 2020-11-27 Completed [facility] - 10:32:00 [facility] Prevnar 13 (PCV13) Prevnar 13 (PCV13) 2020-11-27 Completed [facility] - 10:32:00 [facility] Prevnar 13 (PCV13) Prevnar 13 (PCV13) 2020-11-27 Completed [facility] - 10:32:00 [facility] Prevnar 13 (PCV13) Prevnar 13 (PCV13) 2020-11-27 Completed [facility] - 10:32:00 [facility] Prevnar 13 (PCV13) Prevnar 13 (PCV13) 2020-11-27 Completed [facility] - 10:32:00 [facility] Prevnar 13 (PCV13) Prevnar 13 (PCV13) 2020-11-27 Completed [facility] - 10:32:00 [facility] Prevnar 13 (PCV13) Prevnar 13 (PCV13) 2020-11-27 Completed [facility] - 10:32:00 [facility] Prevnar 13 (PCV13) Prevnar 13 (PCV13) 2020-11-27 Completed [facility] - 10:32:00 [facility] Prevnar 13 (PCV13) Prevnar 13 (PCV13) 2020-11-27 Completed [facility] - 10:32:00 [facility] Prevnar 13 (PCV13) Prevnar 13 (PCV13) 2020-11-27 Completed [facility] - 10:32:00 [facility] Prevnar 13 (PCV13) Prevnar 13 (PCV13) 2020-11-27 Completed [facility] - 10:32:00 [facility] Prevnar 13 (PCV13) Prevnar 13 (PCV13) 2020-11-27 Completed [facility] - 10:32:00 [facility] Prevnar 13 (PCV13) Prevnar 13 (PCV13) 2020-11-27 Completed [facility] - 10:32:00 [facility] Prevnar 13 (PCV13) Prevnar 13 (PCV13) 2020-11-27 Completed [facility] - 10:32:00 [facility] Prevnar 13 (PCV13) Prevnar 13 (PCV13) 2020-11-27 Completed [facility] - 10:32:00 [facility] Prevnar 13 (PCV13) Prevnar 13 (PCV13) 2020-11-27 Completed [facility] - 10:32:00 [facility] Prevnar 13 (PCV13) Prevnar 13 (PCV13) 2020-11-27 Completed [facility] - 10:32:00 [facility] Prevnar 13 (PCV13) Prevnar 13 (PCV13) 2020-11-27 Completed [facility] - 10:32:00 [facility] Prevnar 13 (PCV13) Prevnar 13 (PCV13) 2020-11-27 Completed [facility] - 10:32:00 [facility] Prevnar 13 (PCV13) Prevnar 13 (PCV13) 2020-11-27 Completed [facility] - 10:32:00 [facility] Prevnar 13 (PCV13) Prevnar 13 (PCV13) 2020-11-27 Completed [facility] - 10:32:00 [facility] Moderna COVID-19 Moderna COVID-19 2020-05-16 Completed [facility] Vaccine Vaccine 09:45:00 [facility] Moderna COVID-19 Moderna COVID-19 2020-05-16 Completed [facility] Vaccine Vaccine 09:45:00 [facility] Moderna COVID-19 Moderna COVID-19 2020-05-16 Completed [facility] Vaccine Vaccine 09:45:00 [facility] Moderna COVID-19 Moderna COVID-19 2020-05-16 Completed [facility] Vaccine Vaccine 09:45:00 [facility] Moderna COVID-19 Moderna COVID-19 2020-05-16 Completed [facility] Vaccine Vaccine 09:45:00 [facility] Moderna COVID-19 Moderna COVID-19 2020-05-16 Completed [facility] Vaccine Vaccine 09:45:00 [facility] Moderna COVID-19 Moderna COVID-19 2020-05-16 Completed [facility] Vaccine Vaccine 09:45:00 [facility] Moderna COVID-19 Moderna COVID-19 2020-05-16 Completed [facility] - Vaccine Vaccine 09:45:00 [facility] Moderna COVID-19 Moderna COVID-19 2020-05-16 Completed [facility] Vaccine Vaccine 09:45:00 [facility] Moderna COVID-19 Moderna COVID-19 2020-05-16 Completed [facility] Vaccine Vaccine 09:45:00 [facility] Moderna COVID-19 Moderna COVID-19 2020-05-16 Completed [facility] Vaccine Vaccine 09:45:00 [facility] Moderna COVID-19 Moderna COVID-19 2020-05-16 Completed [facility] Vaccine Vaccine 09:45:00 [facility] Moderna COVID-19 Moderna COVID-19 2020-05-16 Completed [facility] Vaccine Vaccine 09:45:00 [facility] Moderna COVID-19 Moderna COVID-19 2020-05-16 Completed [facility] Vaccine Vaccine 09:45:00 [facility] Moderna COVID-19 Moderna COVID-19 2020-05-16 Completed [facility] Vaccine Vaccine 09:45:00 [facility] Moderna COVID-19 Moderna COVID-19 2020-05-16 Completed [facility] Vaccine Vaccine 09:45:00 [facility] Moderna COVID-19 Moderna COVID-19 2020-05-16 Completed [facility] Vaccine Vaccine 09:45:00 [facility] Moderna COVID-19 Moderna COVID-19 2020-05-16 Completed [facility] Vaccine Vaccine 09:45:00 [facility] Moderna COVID-19 Moderna COVID-19 2020-05-16 Completed [facility] Vaccine Vaccine 09:45:00 [facility] Moderna COVID-19 Moderna COVID-19 2020-05-16 Completed [facility] Vaccine Vaccine 09:45:00 [facility] Moderna COVID-19 Moderna COVID-19 2020-05-16 Completed [facility] Vaccine Vaccine 09:45:00 [facility] Moderna COVID-19 Moderna COVID-19 2020-05-16 Completed [facility] Vaccine Vaccine 09:45:00 [facility] Moderna COVID-19 Moderna COVID-19 2020-05-16 Completed [facility] Vaccine Vaccine 09:45:00 [facility] Moderna COVID-19 Moderna COVID-19 2020-05-16 Completed [facility] Vaccine Vaccine 09:45:00 [facility] Moderna COVID-19 Moderna COVID-19 2020-05-16 Completed [facility] Vaccine Vaccine 09:45:00 [facility] Moderna COVID-19 Moderna COVID-19 2020-05-16 Completed [facility] Vaccine Vaccine 09:45:00 [facility] Moderna COVID-19 Moderna COVID-19 2020-05-16 Completed [facility] Vaccine Vaccine 09:45:00 [facility] Moderna COVID-19 Moderna COVID-19 2020-05-16 Completed [facility] Vaccine Vaccine 09:45:00 [facility] Moderna COVID-19 Moderna COVID-19 2020-05-16 Completed [facility] Vaccine Vaccine 09:45:00 [facility] Moderna COVID-19 Moderna COVID-19 2020-05-16 Completed [facility] Vaccine Vaccine 09:45:00 [facility] Moderna COVID-19 Moderna COVID-19 2020-05-16 Completed [facility] Vaccine Vaccine 09:45:00 [facility] Moderna COVID-19 Moderna COVID-19 2020-05-16 Completed [facility] Vaccine Vaccine 09:45:00 [facility] Moderna COVID-19 Moderna COVID-19 2020-04-17 Completed [facility] Vaccine Vaccine 09:45:00 [facility] Moderna COVID-19 Moderna COVID-19 2020-04-17 Completed [facility] Vaccine Vaccine 09:45:00 [facility] Moderna COVID-19 Moderna COVID-19 2020-04-17 Completed [facility] Vaccine Vaccine 09:45:00 [facility] Moderna COVID-19 Moderna COVID-19 2020-04-17 Completed [facility] Vaccine Vaccine 09:45:00 [facility] Moderna COVID-19 Moderna COVID-19 2020-04-17 Completed [facility] Vaccine Vaccine 09:45:00 [facility] Moderna COVID-19 Moderna COVID-19 2020-04-17 Completed [facility] Vaccine Vaccine 09:45:00 [facility] Moderna COVID-19 Moderna COVID-19 2020-04-17 Completed [facility] Vaccine Vaccine 09:45:00 [facility] Moderna COVID-19 Moderna COVID-19 2020-04-17 Completed [facility] Vaccine Vaccine 09:45:00 [facility] Moderna COVID-19 Moderna COVID-19 2020-04-17 Completed [facility] Vaccine Vaccine 09:45:00 [facility] Moderna COVID-19 Moderna COVID-19 2020-04-17 Completed [facility] Vaccine Vaccine 09:45:00 [facility] Moderna COVID-19 Moderna COVID-19 2020-04-17 Completed [facility] Vaccine Vaccine 09:45:00 [facility] Moderna COVID-19 Moderna COVID-19 2020-04-17 Completed [facility] Vaccine Vaccine 09:45:00 [facility] Moderna COVID-19 Moderna COVID-19 2020-04-17 Completed [facility] Vaccine Vaccine 09:45:00 [facility] Moderna COVID-19 Moderna COVID-19 2020-04-17 Completed [facility] Vaccine Vaccine 09:45:00 [facility] Moderna COVID-19 Moderna COVID-19 2020-04-17 Completed [facility] Vaccine Vaccine 09:45:00 [facility] Moderna COVID-19 Moderna COVID-19 2020-04-17 Completed [facility] Vaccine Vaccine 09:45:00 [facility] Moderna COVID-19 Moderna COVID-19 2020-04-17 Completed [facility] Vaccine Vaccine 09:45:00 [facility] Moderna COVID-19 Moderna COVID-19 2020-04-17 Completed [facility] Vacc[facility] Vaccine 09:45:00 [facility] Moderna COVID-19 Moderna COVID-19 2020-04-17 Completed [facility] Vaccine Vaccine 09:45:00 [facility] Moderna COVID-19 Moderna COVID-19 2020-04-17 Completed [facility] Vaccine Vaccine 09:45:00 [facility] Moderna COVID-19 Moderna COVID-19 2020-04-17 Completed [facility] Vacc[facility] Vaccine 09:45:00 [facility] Moderna COVID-19 Moderna COVID-19 2020-04-17 Completed [facility] Vaccine Vaccine 09:45:00 [facility] Moderna COVID-19 Moderna COVID-19 2020-04-17 Completed [facility] Vaccine Vaccine 09:45:00 [facility] Moderna COVID-19 Moderna COVID-19 2020-04-17 Completed [facility] Vaccine Vaccine 09:45:00 [facility] Moderna COVID-19 Moderna COVID-19 2020-04-17 Completed [facility] Vaccine Vaccine 09:45:00 [facility] Moderna COVID-19 Moderna COVID-19 2020-04-17 Completed [facility] Vaccine Vaccine 09:45:00 [facility] Moderna COVID-19 Moderna COVID-19 2020-04-17 Completed [facility] Vaccine Vaccine 09:45:00 [facility] Moderna COVID-19 Moderna COVID-19 2020-04-17 Completed [facility] Vaccine Vaccine 09:45:00 [facility] Moderna COVID-19 Moderna COVID-19 2020-04-17 Completed [facility] Vaccine Vaccine 09:45:00 [facility] Moderna COVID-19 Moderna COVID-19 2020-04-17 Completed [facility] Vaccine Vaccine 09:45:00 [facility] Moderna COVID-19 Moderna COVID-19 2020-04-17 Completed [facility] Vacc[facility] Vaccine 09:45:00 [facility] Moderna COVID-19 Moderna COVID-19 2020-04-17 Completed [facility] Vaccine 09:45:00 [facility] Influenza Virus 2019-12-17 Completed [facility] .5 mL 00:00:00 [facility] [place] [facility] Influenza Virus 2019-12-17 Completed [facility] .5 mL 00:00:00 [facility] [place] [facility] Influenza Virus 2019-12-17 Completed [facility] .5 mL 00:00:00 [facility] 6[facility] [place] [facility] Influenza Virus 2019-12-17 Completed [facility] .5 mL 00:00:00 [facility] 6[facility] [place] [facility] Influenza Virus 2019-12-17 Completed [facility] .5 mL 00:00:00 [facility] [place] [facility] Influenza Virus 2019-12-17 Completed [facility] .5 mL 00:00:00 [facility] [place] [facility] Influenza Virus 2019-12-17 Completed [facility] .5 mL 00:00:00 [facility] [place] [facility] Influenza Virus 2019-12-17 Completed [facility] .5 mL 00:00:00 [facility] [place] [facility] Influenza Virus 2019-12-17 Completed [facility] .5 mL 00:00:00 [facility] [place] [facility] Influenza Virus 2019-12-17 Completed [facility] .5 mL 00:00:00 [facility] 6[facility] [place] [facility] Influenza Virus 2019-12-17 Completed [facility] .5 mL 00:00:00 [facility] [place] [facility] Tropicamide 0.5% 2019-04-16 Completed [facility] 15[facility] 00:00:00 Tropicamide 0.5% 2019-04-16 Completed [facility] 15[facility] 00:00:00 Tropicamide 0.5% 2019-04-16 Completed [facility] 15ml 00:00:00 Influenza Virus 2019-02-01 Completed [facility] [...] [facility] Vaccine [facility] IM 00:[facility]00 [facility] Multi-dose [facility] [place] [facility] Influenza, 2019-02-01 Completed [facility] Injectable, 00:00:00 Quadrivalent Influenza, 2019-02-01 Completed [facility] Injectable, 00:00:00 Quadrivalent Influenza, 2019-02-01 Completed [facility] Injectable, 00:00:00 Quadrivalent TDAP 2018-07-11 Completed [facility] 00:00:00 [facility] TDAP 2018-07-11 Completed [facility] 00:00:00 [facility] TDAP 2018-07-11 Completed [facility] 00:00:00 [facility] TDAP 2018-07-11 Completed [facility] 00:00:00 [facility] TDAP 2018-07-11 Completed [facility] 00:00:00 [facility] TDAP 2018-07-11 Completed [facility] 00:00:00 [facility] TDAP 2018-07-11 Completed [facility] 00:00:00 [facility] TDAP 2018-07-11 Completed [facility] 00:00:00 [facility] TDAP 2018-07-11 Completed [facility] 00:00:00 [facility] TDAP 2018-07-11 Completed [facility] 00:00:00 [facility] TDAP 2018-07-11 Completed [facility] 00:00:00 [facility] TDAP 2018-07-11 Completed [facility] 00:00:00 [facility] TDAP 2018-07-11 Completed [facility] 00:00:00 [facility] TDAP 2018-07-11 Completed [facility] 00:00:00 [facility] TDAP 2018-07-11 Completed [facility] 00:00:00 [facility] TDAP 2018-07-11 Completed [facility] 00:00:00 [facility] TDAP 2018-07-11 Completed [facility] 00:00:00 [facility] TDAP 2018-07-11 Completed [facility] 00:00:00 [facility] TDAP 2018-07-11 Completed [facility] 00:00:00 [facility] TDAP 2018-07-11 Completed [facility] 00:00:00 [facility] TDAP 2018-07-11 Completed [facility] 00:00:00 [facility] Tdap (Tetanus 2018-07-[address] [facility] Toxoid, Reduced 00:00:00 Diphtheria Toxoid And Acellular Pertussis, Absorbed) Tdap (Tetanus 2018-07-[address] [facility] th Toxoid, Reduced 00:00:00 Diphtheria Toxoid And Acellular Pertussis, Absorbed) Tdap (Tetanus 2018-07-[address] [facility] Toxoid, Reduced 00:00:00 Diphtheria Toxoid And Acellular Pertussis, Absorbed) Tropicamide 0.5% 2018-04-06 Completed [facility] 15ml 00:00:00 Tropicamide 0.5% 2018-04-06 Completed [facility] 15[facility] 00:00:00 Tropicamide 0.5% 2018-04-06 Completed [facility] 15ml 00:00:00 Influenza Virus 2018-03-02 Completed [facility] Vaccine 00:00:00 [facility] Influenza Virus 2018-03-02 Completed [facility] Vaccine 00:00:00 [facility] Influenza Virus 2018-03-02 Completed [facility] Vaccine 00:00:00 [facility] Influenza Virus 2018-03-02 Completed [facility] Vaccine 00:00:00 [facility] Influenza Virus 2018-03-02 Completed [facility] Vaccine 00:00:00 [facility] Influenza Virus 2018-03-02 Completed [facility] Vaccine 00:00:00 [facility] Influenza Virus 2018-03-02 Completed [facility] Vaccine 00:00:00 [facility] Influenza Virus 2018-03-02 Completed [facility] Vaccine 00:00:00 [facility] Influenza Virus 2018-03-02 Completed [facility] Vaccine 00:00:00 [facility] Influenza Virus 2018-03-02 Completed [facility] Vaccine 00:00:00 [facility] Influenza Virus 2018-03-02 Completed [facility] Vaccine 00:00:00 [facility] Influenza Virus 2018-03-02 Completed [facility] Vaccine 00:00:00 [facility] Influenza Virus 2018-03-02 Completed [facility] Vaccine 00:00:00 [facility] Influenza Virus 2018-03-02 Completed [facility] Vaccine 00:00:00 [facility] Influenza Virus 2018-03-02 Completed [facility] Vaccine 00:00:00 [facility] Influenza Virus 2018-03-02 Completed [facility] Vaccine 00:00:00 [facility] Influenza Virus 2018-03-02 Completed [facility] Vaccine 00:00:00 [facility] Influenza Virus 2018-03-02 Completed [facility] Vaccine 00:00:00 [facility] Influenza Virus 2018-03-02 Completed [facility] Vaccine 00:00:00 [facility] Influenza Virus 2018-03-02 Completed [facility] Vaccine 00:00:00 [facility] Influenza Virus 2018-03-02 Completed [facility] Vaccine 00:00:00 [facility] Influenza, 2018-03-02 Completed [facility] Vacc[facility]<FLUCELVAX>(M 00:00:00 ulti-Dose) Influenza, 2018-03-02 Completed [facility]<FLUCELVAX>(M 00:00:00 ulti-Dose) Influenza, 2018-03-02 Completed [facility] Vaccine<FLUCELVAX>(M 00:00:00 ulti-Dose) Influenza Virus 2017-01-05 Completed [facility] Vaccine (3+ yrs) 00:00:00 [facility] Influenza Virus 2017-01-05 Completed [facility] of Vaccine (3+ yrs) 00:00:00 [facility] Influenza Virus 2017-01-05 Completed [facility] Vaccine (3+ yrs) 00:00:00 [facility] Influenza Virus 2017-01-05 Completed [facility] Vaccine (3+ yrs) 00:00:00 [facility] Influenza Virus 2017-01-05 Completed [facility] Vaccine (3+ yrs) 00:00:00 [facility] Influenza Virus 2017-01-05 Completed [facility] Vaccine (3+ yrs) 00:00:00 [facility] Influenza Virus 2017-01-05 Completed [facility] Vaccine (3+ yrs) 00:00:00 [facility] Influenza Virus 2017-01-05 Completed [facility] Vaccine (3+ yrs) 00:00:00 [facility] Influenza Virus 2017-01-05 Completed [facility] Vaccine (3+ yrs) 00:00:00 [facility] Influenza Virus 2017-01-05 Completed [facility] Vaccine (3+ yrs) 00:00:00 [facility] Influenza Virus 2017-01-05 Completed [facility] Vaccine (3+ yrs) 00:00:00 [facility] Influenza Virus 2017-01-05 Completed [facility] Vaccine (3+ yrs) 00:00:00 [facility] Influenza Virus 2017-01-05 Completed [facility] Vaccine (3+ yrs) 00:00:00 [facility] Influenza Virus 2017-01-05 Completed [facility] Vaccine (3+ yrs) 00:00:00 [facility] Influenza Virus 2017-01-05 Completed [facility] Vaccine (3+ yrs) 00:00:00 [facility] Influenza Virus 2017-01-05 Completed [facility] Vaccine (3+ yrs) 00:00:00 [facility] Influenza Virus 2017-01-05 Completed [facility] Vaccine (3+ yrs) 00:00:00 [facility] Influenza Virus 2017-01-05 Completed [facility] Vaccine (3+ yrs) 00:00:00 [facility] Influenza Virus 2017-01-05 Completed [facility] Vaccine (3+ yrs) 00:00:00 [facility] Influenza Virus 2017-01-05 Completed [facility] Vaccine (3+ yrs) 00:00:00 [facility] Influenza Virus 2017-01-05 Completed [facility] Vaccine (3+ yrs) 00:00:00 [facility] Influenza Vaccine, 2017-01-05 Completed [facility] Seasonal, Injectable 00:00:00 Influenza Vaccine, 2017-01-05 Completed [facility] Seasonal, Injectable 00:00:00 Influenza Vaccine, 2017-01-05 Completed [facility] Seasonal, Injectable 00:00:00 Tropicamide 0.5% 2016-11-16 Completed [facility] 00:00:00 Tropicamide 0.5% 2016-11-16 Completed [facility] 00:00:00 Tropicamide 0.5% 2016-11-16 Completed [facility] 15ml 00:00:00 Pneumococcal 2016-05-10 Completed [facility] Polysaccharide, [...] 00:00[facility]00 [facility] PPSV[facility] (PNEUMOVAX) [facility] PPV 23 Pneumococcal 2016-05-10 Completed [facility] Polysaccaride 00:00:00 PPV 23 Pneumococcal 2016-05-10 Completed [facility] Polysaccaride 00:00:00 PPV 23 Pneumococcal 2016-05-10 Completed [facility] Polysaccaride 00:00:00 Influenza Virus 2015-12-23 Completed [facility] Vaccine 00:00:00 [facility] Influenza Virus 2015-12-23 Completed [facility] Vaccine 00:00:00 [facility] Influenza Virus 2015-12-23 Completed [facility] Vaccine 00:00:00 [facility] Influenza Virus 2015-12-23 Completed [facility] Vaccine 00:00:00 [facility] Influenza Virus 2015-12-23 Completed [facility] Vaccine 00:00:00 [facility] Influenza Virus 2015-12-23 Completed [facility] Vaccine 00:00:00 [facility] Influenza Virus 2015-12-23 Completed [facility] Vaccine 00:00:00 [facility] Influenza Virus 2015-12-23 Completed [facility] Vaccine 00:00:00 [facility] Influenza Virus 2015-12-23 Completed [facility] Vaccine 00:00:00 [facility] Influenza Virus 2015-12-23 Completed [facility] Vaccine 00:00:00 [facility] Influenza Virus 2015-12-23 Completed [facility] Vaccine 00:00:00 [facility] Influenza Virus 2015-12-23 Completed [facility] Vaccine 00:00:00 [facility] Influenza Virus 2015-12-23 Completed [facility] Vaccine 00:00:00 [facility] Influenza Virus 2015-12-23 Completed [facility] Vaccine 00:00:00 [facility] Influenza Virus 2015-12-23 Completed [facility] Vaccine 00:00:00 [facility] Influenza Virus 2015-12-23 Completed [facility] Vaccine 00:00:00 [facility] Influenza Virus 2015-12-23 Completed [facility] Vaccine 00:00:00 [facility] Influenza Virus 2015-12-23 Completed [facility] Vaccine 00:00:00 [facility] Influenza Virus 2015-12-23 Completed [facility] Vaccine 00:00:00 [facility] Influenza Virus 2015-12-23 Completed [facility] Vaccine 00:00:00 [facility] Influenza Virus 2015-12-23 Completed [facility] Vaccine 00:00:00 [facility] Influenza Vaccine 2015-12-23 Completed [facility] 00:00:00 Influenza Vaccine 2015-12-23 Completed [facility] 00:00:00 Influenza Vaccine 2015-12-23 Completed [facility] 00:00:00 Influenza Virus 2015-02-12 Completed [facility] Vaccine 00:00:00 [facility] Influenza Virus 2015-02-12 Completed [facility] Vaccine 00:00:00 [facility] Influenza Virus 2015-02-12 Completed [facility] Vaccine 00:00:00 [facility] Influenza Virus 2015-02-12 Completed [facility] Vaccine 00:00:00 [facility] Influenza Virus 2015-02-12 Completed [facility] Vaccine 00:00:00 [facility] Influenza Virus 2015-02-12 Completed [facility] Vaccine 00:00:00 [facility] Influenza Virus 2015-02-12 Completed [facility] Vaccine 00:00:00 [facility] Influenza Virus 2015-02-12 Completed [facility] Vaccine 00:00:00 [facility] Influenza Virus 2015-02-12 Completed [facility] Vaccine 00:00:00 [facility] Influenza Virus 2015-02-12 Completed [facility] Vaccine 00:00:00 [facility] Influenza Virus 2015-02-12 Completed [facility] Vaccine 00:00:00 [facility] Influenza Virus 2015-02-12 Completed [facility] Vaccine 00:00:00 [facility] Influenza Virus 2015-02-12 Completed [facility] Vaccine 00:00:00 [facility] Influenza Virus 2015-02-12 Completed [facility] Vaccine 00:00:00 [facility] Influenza Virus 2015-02-12 Completed [facility] Vaccine 00:00:00 [facility] Influenza Virus 2015-02-12 Completed [facility] Vaccine 00:00:00 [facility] Influenza Virus 2015-02-12 Completed [facility] Vaccine 00:00:00 [facility] Influenza Virus 2015-02-12 Completed [facility] Vaccine 00:00:00 [facility] Influenza Virus 2015-02-12 Completed [facility] Vaccine 00:00:00 [facility] Influenza Virus 2015-02-12 Completed [facility] Vaccine 00:00:00 [facility] Influenza Virus 2015-02-12 Completed [facility] Vaccine 00:00:00 [facility] Influenza Vaccine 2015-02-12 Completed [facility] 00:00:00 Influenza Vaccine 2015-02-12 Completed [facility] 00:00:00 Influenza Vaccine 2015-02-12 Completed [facility] 00:00:00 Influenza Virus 2014-02-10 Completed [facility] Vaccine 00:00:00 [facility] Influenza Virus 2014-02-10 Completed [facility] Vaccine 00:00:00 [facility] Influenza Virus 2014-02-10 Completed [facility] Vaccine 00:00:00 [facility] Influenza Virus 2014-02-10 Completed [facility] Vaccine 00:00:00 [facility] Influenza Virus 2014-02-10 Completed [facility] Vaccine 00:00:00 [facility] Influenza Virus 2014-02-10 Completed [facility] Vaccine 00:00:00 [facility] Influenza Virus 2014-02-10 Completed [facility] Vaccine 00:00:00 [facility] Influenza Virus 2014-02-10 Completed [facility] Vaccine 00:00:00 [facility] Influenza Virus 2014-02-10 Completed [facility] Vaccine 00:00:00 [facility] Influenza Virus 2014-02-10 Completed [facility] Vaccine 00:00:00 [facility] Influenza Virus 2014-02-10 Completed [facility] Vaccine 00:00:00 [facility] Influenza Virus 2014-02-10 Completed [facility] Vaccine 00:00:00 [facility] Influenza Virus 2014-02-10 Completed [facility] Vaccine 00:00:00 [facility] Influenza Virus 2014-02-10 Completed [facility] Vaccine 00:00:00 [facility] Influenza Virus 2014-02-10 Completed [facility] Vaccine 00:00:00 [facility] Influenza Virus 2014-02-10 Completed [facility] Vaccine 00:00:00 [facility] Influenza Virus 2014-02-10 Completed [facility] Vaccine 00:00:00 [facility] Influenza Virus 2014-02-10 Completed [facility] Vaccine 00:00:00 [facility] Influenza Virus 2014-02-10 Completed [facility] Vaccine 00:00:00 [facility] Influenza Virus 2014-02-10 Completed [facility] Vaccine 00:00:00 [facility] Influenza Virus 2014-02-10 Completed [facility] Vaccine 00:00:00 [facility] Influenza Vaccine 2014-02-10 Completed [facility] 00:00:00 Influenza Vaccine 2014-02-10 Completed [facility] 00:00:00 Influenza Vaccine 2014-02-10 Completed [facility] 00:00:00 Influenza Virus 2013-04-04 Completed [facility] Vaccine 00:00:00 [facility] Influenza Virus 2013-04-04 Completed [facility] Vaccine 00:00:00 [facility] Influenza Virus 2013-04-04 Completed [facility] Vaccine 00:00:00 [facility] Influenza Virus 2013-04-04 Completed [facility] Vaccine 00:00:00 [facility] Influenza Virus 2013-04-04 Completed [facility] Vaccine 00:00:00 [facility] Influenza Virus 2013-04-04 Completed [facility] Vaccine 00:00:00 [facility] Influenza Virus 2013-04-04 Completed [facility] Vaccine 00:00:00 [facility] Influenza Virus 2013-04-04 Completed [facility] Vaccine 00:00:00 [facility] Influenza Virus 2013-04-04 Completed [facility] Vaccine 00:00:00 [facility] Influenza Virus 2013-04-04 Completed [facility] Vaccine 00:00:00 [facility] Influenza Virus 2013-04-04 Completed [facility] Vaccine 00:00:00 [facility] Influenza Virus 2013-04-04 Completed [facility] Vaccine 00:00:00 [facility] Influenza Virus 2013-04-04 Completed [facility] Vaccine 00:00:00 [facility] Influenza Virus 2013-04-04 Completed [facility] Vaccine 00:00:00 [facility] Influenza Virus 2013-04-04 Completed [facility] Vaccine 00:00:00 [facility] Influenza Virus 2013-04-04 Completed [facility] Vaccine 00:00:00 [facility] Influenza Virus 2013-04-04 Completed [facility] Vaccine 00:00:00 [facility] Influenza Virus 2013-04-04 Completed [facility] Vaccine 00:00:00 [facility] Influenza Virus 2013-04-04 Completed [facility] Vaccine 00:00:00 [facility] Influenza Virus 2013-04-04 Completed [facility] Vaccine 00:00:00 [facility] Influenza Virus 2013-04-04 Completed [facility] Vaccine 00:00:00 [facility] Influenza Vaccine 2013-04-04 Completed [facility] 00:00:00 Influenza Vaccine 2013-04-04 Completed [facility] 00:00:00 Influenza Vaccine 2013-04-04 Completed [facility] 00:00:00 Influenza Virus 2012-01-10 Completed [facility] Vaccine 00:00:00 [facility] Influenza Virus 2012-01-10 Completed [facility] Vaccine 00:00:00 [facility] Influenza Virus 2012-01-10 Completed [facility] Vaccine 00:00:00 [facility] Influenza Virus 2012-01-10 Completed [facility] Vaccine 00:00:00 [facility] Influenza Virus 2012-01-10 Completed [facility] Vaccine 00:00:00 [facility] Influenza Virus 2012-01-10 Completed [facility] Vaccine 00:00:00 [facility] Influenza Virus 2012-01-10 Completed [facility] Vaccine 00:00:00 [facility] Influenza Virus 2012-01-10 Completed [facility] Vaccine 00:00:00 [facility] Influenza Virus 2012-01-10 Completed [facility] Vaccine 00:00:00 [facility] Influenza Virus 2012-01-10 Completed [facility] Vaccine 00:00:00 [facility] Influenza Virus 2012-01-10 Completed [facility] Vaccine 00:00:00 [facility] Influenza Virus 2012-01-10 Completed [facility] Vaccine 00:00:00 [facility] Influenza Virus 2012-01-10 Completed [facility] Vaccine 00:00:00 [facility] Influenza Virus 2012-01-10 Completed [facility] Vaccine 00:00:00 [facility] Influenza Virus 2012-01-10 Completed [facility] Vaccine 00:00:00 [facility] Influenza Virus 2012-01-10 Completed [facility] Vaccine 00:00:00 [facility] Influenza Virus 2012-01-10 Completed [facility] Vaccine 00:00:00 [facility] Influenza Virus 2012-01-10 Completed [facility] Vaccine 00:00:00 [facility] Influenza Virus 2012-01-10 Completed [facility] Vaccine 00:00:00 [facility] Influenza Virus 2012-01-10 Completed [facility] Vaccine 00:00:00 [facility] Influenza Virus 2012-01-10 Completed [facility] Vaccine 00:00:00 [facility] Influenza Vaccine 2012-01-10 Completed [facility] 00:00:00 Influenza Vaccine 2012-01-10 Completed [facility] 00:00:00 Influenza Vaccine 2012-01-10 Completed [facility] 00:00:00 Influenza Virus 2010-12-27 Completed [facility] Vaccine 00:00:00 [facility] Influenza Virus 2010-12-27 Completed [facility] Vaccine 00:00:00 [facility] Influenza Virus 2010-12-27 Completed [facility] Vaccine 00:00:00 [facility] Influenza Virus 2010-12-27 Completed [facility] Vaccine 00:00:00 [facility] Influenza Virus 2010-12-27 Completed [facility] Vaccine 00:00:00 [facility] Influenza Virus 2010-12-27 Completed [facility] Vaccine 00:00:00 [facility] Influenza Virus 2010-12-27 Completed [facility] Vaccine 00:00:00 [facility] Influenza Virus 2010-12-27 Completed [facility] Vaccine 00:00:00 [facility] Influenza Virus 2010-12-27 Completed [facility] Vaccine 00:00:00 [facility] Influenza Virus 2010-12-27 Completed [facility] Vaccine 00:00:00 [facility] Influenza Virus 2010-12-27 Completed [facility] Vaccine 00:00:00 [facility] Influenza Virus 2010-12-27 Completed [facility] Vaccine 00:00:00 [facility] Influenza Virus 2010-12-27 Completed [facility] Vaccine 00:00:00 [facility] Influenza Virus 2010-12-27 Completed [facility] Vaccine 00:00:00 [facility] Influenza Virus 2010-12-27 Completed [facility] Vaccine 00:00:00 [facility] Influenza Virus 2010-12-27 Completed [facility] Vaccine 00:00:00 [facility] Influenza Virus 2010-12-27 Completed [facility] Vaccine 00:00:00 [facility] Influenza Virus 2010-12-27 Completed [facility] Vaccine 00:00:00 [facility] Influenza Virus 2010-12-27 Completed [facility] Vaccine 00:00:00 [facility] Influenza Virus 2010-12-27 Completed [facility] Vaccine 00:00:00 [facility] Influenza Virus 2010-12-27 Completed [facility] Vaccine 00:00:00 [facility] Influenza Vaccine 2010-12-27 Completed [facility] 00:00:00 Influenza Vaccine 2010-12-27 Completed [facility] 00:00:00 Influenza Vaccine 2010-12-27 Completed [facility] 00:00:00 Influenza Virus 2009-12-23 Completed [facility] Vaccine 00:00:00 [facility] Influenza Virus 2009-12-23 Completed [facility] Vaccine 00:00:00 [facility] Influenza Virus 2009-12-23 Completed [facility] Vaccine 00:00:00 [facility] Influenza Virus 2009-12-23 Completed [facility] Vaccine 00:00:00 [facility] Influenza Virus 2009-12-23 Completed [facility] Vaccine 00:00:00 [facility] Influenza Virus 2009-12-23 Completed [facility] Vaccine 00:00:00 [facility] Influenza Virus 2009-12-23 Completed [facility] Vaccine 00:00:00 [facility] Influenza Virus 2009-12-23 Completed [facility] Vaccine 00:00:00 [facility] Influenza Virus 2009-12-23 Completed [facility] Vaccine 00:00:00 [facility] Influenza Virus 2009-12-23 Completed [facility] Vaccine 00:00:00 [facility] Influenza Virus 2009-12-23 Completed [facility] Vaccine 00:00:00 [facility] Influenza Virus 2009-12-23 Completed [facility] of Vaccine 00:00:00 [facility] Influenza Virus 2009-12-23 Completed [facility]it y of Vaccine 00:00:00 [facility] Influenza Virus 2009-12-23 Completed [facility]it y of Vaccine 00:00:00 [facility] Influenza Virus 2009-12-23 Completed [facility]it y of Vaccine 00:00:00 [facility] Influenza Virus 2009-12-23 Completed Universit y of Vaccine 00:00:00 [facility] Influenza Virus 2009-12-23 Completed Universit y of Vaccine 00:00:00 [facility] Influenza Virus 2009-12-23 Completed [facility]it y of Vaccine 00:00:00 [facility] Influenza Virus 2009-12-23 Completed [facility]it y of Vaccine 00:00:00 [facility] Influenza Virus 2009-12-23 Completed [facility]it [facility] of Vaccine 00:00:00 [facility] Influenza Virus 2009-12-23 Completed [facility]it y of Vaccine 00:00:00 [facility] Influenza Vaccine 2009-12-23 Completed [facility] 00:00:00 Influenza Vaccine 2009-12-23 Completed [facility] 00:00:00 Influenza Vaccine 2009-12-23 Completed [facility] 00:00:00 TDAP 2008-05-05 Completed [facility] of 00:00:00 [facility] TDAP 2008-05-05 Completed [facility] 00:00:00 [facility] TDAP 2008-05-05 Completed [facility] of 00:00:00 [facility] TDAP 2008-05-05 Completed [facility] 00:00:00 [facility] TDAP 2008-05-05 Completed [facility] 00:00:00 [facility] TDAP 2008-05-05 Completed [facility] 00:00:00 [facility] TDAP 2008-05-05 Completed [facility] 00:00:00 [facility] TDAP 2008-05-05 Completed [facility] 00:00:00 [facility] TDAP 2008-05-05 Completed [facility] 00:00:00 [facility] TDAP 2008-05-05 Completed [facility] 00:00:00 [facility] TDAP 2008-05-05 Completed [facility] 00:00:00 [facility] TDAP 2008-05-05 Completed [facility] 00:00:00 [facility] TDAP 2008-05-05 Completed [facility] 00:00:00 [facility] TDAP 2008-05-05 Completed [facility] 00:00:00 [facility] TDAP 2008-05-05 Completed [facility] 00:00:00 [facility] TDAP 2008-05-05 Completed [facility] of 00:00:00 [facility] TDAP 2008-05-05 Completed [facility] of 00:00:00 [facility] TDAP 2008-05-05 Completed [facility] of 00:00:00 [facility] TDAP 2008-05-05 Completed [facility] of 00:00:00 [facility] TDAP 2008-05-05 Completed [facility] of 00:00:00 [facility] TDAP 2008-05-05 Completed [facility] 00:00:00 [facility] Td Tetanus, 2008-05-05 Completed [facility] diphtheria Toxoids 00:00:00 Vaccine Td Tetanus, 2008-05-05 Completed [facility] diphtheria Toxoids 00:00:00 Vaccine Td Tetanus, 2008-05-05 Completed [facility] diphtheria Toxoids 00:00:00 Vaccine Influenza Virus 2007-01-16 Completed [facility]it [facility] Vaccine 00:00:00 [facility] Influenza Virus 2007-01-16 Completed [facility] of Vaccine 00:00:00 [facility] Influenza Virus 2007-01-16 Completed [facility] of Vaccine 00:00:00 [facility] Influenza Virus 2007-01-16 Completed [facility] of Vaccine 00:00:00 [facility] Influenza Virus 2007-01-16 Completed [facility] of Vaccine 00:00:00 [facility] Influenza Virus 2007-01-16 Completed [facility] of Vaccine 00:00:00 [facility] Influenza Virus 2007-01-16 Completed [facility] of Vaccine 00:00:00 [facility] Influenza Virus 2007-01-16 Completed [facility]it [facility] of Vaccine 00:00:00 [facility] Influenza Virus 2007-01-16 Completed [facility] of Vaccine 00:00:00 [facility] Influenza Virus 2007-01-16 Completed [facility] of Vaccine 00:00:00 [facility] Influenza Virus 2007-01-16 Completed [facility]it [facility] of Vaccine 00:00:00 [facility] Influenza Virus 2007-01-16 Completed [facility]it y of Vaccine 00:00:00 [facility] Influenza Virus 2007-01-16 Completed [facility]it [facility] of Vaccine 00:00:00 [facility] Influenza Virus 2007-01-16 Completed [facility]it [facility] of Vaccine 00:00:00 [facility] Influenza Virus 2007-01-16 Completed [facility]it [facility] of Vaccine 00:00:00 [facility] Influenza Virus 2007-01-16 Completed [facility] of Vaccine 00:00:00 [facility] Influenza Virus 2007-01-16 Completed [facility]it [facility] of Vaccine 00:00:00 [facility] Influenza Virus 2007-01-16 Completed [facility]it [facility] of Vaccine 00:00:00 [facility] Influenza Virus 2007-01-16 Completed [facility] of Vaccine 00:00:00 [facility] Influenza Virus 2007-01-16 Completed [facility]it [facility] of Vaccine 00:00:00 [facility] Influenza Virus 2007-01-16 Completed [facility]it y of Vaccine 00:00:00 [facility] Influenza Vaccine 2007-01-16 Completed [facility] 00:00:00 Influenza Vaccine 2007-01-16 Completed [facility] 00:00:00 Influenza Vaccine 2007-01-16 Completed [facility] 00:00:00 Vital Signs Vital Name Observation Time Observation Value Comments Source height 2022-02-28 15:00:00 58 [in_i] [facility] weight 2022-02-28 15:00:00 121 [lb_av] [facility] bmi 2022-02-28 15:00:00 25.29 kg/m2 [facility] height 2021-12-24 10:20:00 58 [in_i] [facility] weight 2021-12-24 10:20:00 120.4 [lb_av] [facility] temperature 2021-12-24 10:20:00 97.6 [degF] [facility] bmi 2021-12-24 10:20:00 25.16 kg/m2 [facility] oximetry 2021-12-24 10:20:00 98 % [facility] respiratory rate 2021-12-24 10:20:00 18 /min Comm on [facility] blood pressure 2021-12-24 10:20:00 130 mm[Hg] [facility] - systolic [facility] blood pressure 2021-12-24 10:20:00 68 mm[Hg] [facility] diastolic [facility] Systolic blood 2021-10-11 20:58:00 166 mm[Hg] Univer sity of pressure [facility] Diastolic blood 2021-10-11 20:58:00 65 mm[Hg] Unive rsity of pressure [facility] Heart rate 2021-10-11 20:58:00 62 /[facility] 2021-10-11 20:58:00 36.83 [facility]ir [facility] Respiratory rate 2021-10-11 20:58:00 18 /[facility] in 2021-10-11 20:58:00 98 /min [facility] Arterial blood by [facility] Pulse oximetry Branch Body height 2021-10-11 13:00:00 147.3 cm [facility] Body weight 2021-10-11 13:00:00 55.3 kg [facility] BMI 2021-10-11 13:00:00 25.49 kg/m2 [facility] height 2021-09-02 08:30:00 58 [in_i] [facility] weight 2021-09-02 08:30:00 123 [lb_av] [facility] temperature 2021-09-02 08:30:00 97.9 [degF] [facility] bmi 2021-09-02 08:30:00 25.7 kg/m2 [facility] blood pressure 2021-09-02 08:30:00 144 mm[Hg] [facility] blood pressure 2021-09-02 08:30:00 94 mm[Hg] [facility] diastolic [facility] height 2021-08-19 09:00:00 58 [in_i] [facility] weight 2021-08-19 09:00:00 123 [lb_av] [facility] bmi 2021-08-19 09:00:00 25.7 kg/m2 [facility] blood pressure 2021-08-19 09:00:00 136 mm[Hg] [facility] blood pressure 2021-08-19 09:00:00 82 mm[Hg] [facility] diastolic [facility] height 2021-08-17 08:40:00 58 [in_i] [facility] - [facility] weight 2021-08-17 08:40:00 123 [lb_av] Common S pirit [facility] temperature 2021-08-17 08:40:00 97.2 [degF] Common S [facility]irit - [facility] bmi 2021-08-17 08:40:00 25.7 kg/m2 Common S [facility]irit [facility] oximetry 2021-08-17 08:40:00 99 % [facility] - [facility] respiratory rate 2021-08-17 08:40:00 20 /min Comm on [facility] blood pressure 2021-08-17 08:40:00 138 mm[Hg] Common [facility] - systolic [facility] blood pressure 2021-08-17 08:40:00 62 mm[Hg] [facility] height 2021-07-29 10:00:00 58 [in_i] Common [facility]irit [facility] weight 2021-07-29 10:00:00 122 [lb_av] [facility] temperature 2021-07-29 10:00:00 97.4 [degF] Common S [facility]irit [facility] bmi 2021-07-29 10:00:00 25.5 kg/m2 Common S [facility] - [facility] oximetry 2021-07-29 10:00:00 100 % Common S [facility]irit [facility] respiratory rate 2021-07-29 10:00:00 18 /min Comm on [facility] blood pressure 2021-07-29 10:00:00 136 mm[Hg] Common [facility] - systolic [facility] blood pressure 2021-07-29 10:00:00 69 mm[Hg] [facility] height 2021-07-29 10:00:00 58 [in_i] Common S [facility]irit [facility] weight 2021-07-29 10:00:00 122 [lb_av] [facility] - [facility] temperature 2021-07-29 10:00:00 97.4 [degF] Common S [facility]irit [facility] bmi 2021-07-29 10:00:00 25.5 kg/m2 [facility] oximetry 2021-07-29 10:00:00 100 % [facility] respiratory rate 2021-07-29 10:00:00 18 /min Comm on [facility] - [facility] blood pressure 2021-07-29 10:00:00 136 mm[Hg] [facility] blood pressure 2021-07-29 10:00:00 69 mm[Hg] [facility] - diastolic [facility] height 2021-07-13 15:00:00 58 [in_i] [facility] weight 2021-07-13 15:00:00 123 [lb_av] [facility] bmi 2021-07-13 15:00:00 25.7 kg/m2 Common [facility] blood pressure 2021-07-13 15:00:00 136 mm[Hg] [facility] blood pressure 2021-07-13 15:00:00 76 mm[Hg] [facility] diastolic [facility] height 2021-06-15 09:30:00 58 [in_i] [facility] weight 2021-06-15 09:30:00 120 [lb_av] [facility] temperature 2021-06-15 09:30:00 98.0 [degF] [facility] bmi 2021-06-15 09:30:00 25.08 kg/m2 [facility] blood pressure 2021-06-15 09:30:00 128 mm[Hg] [facility] blood pressure 2021-06-15 09:30:00 80 mm[Hg] [facility] diastolic [facility] height 2021-05-04 11:15:00 58 [in_i] [facility] - [facility] weight 2021-05-04 11:15:00 120 [lb_av] Common [facility] bmi 2021-05-04 11:15:00 25.08 kg/m2 [facility] - [facility] blood pressure 2021-05-04 11:15:00 142 mm[Hg] [facility] blood pressure 2021-05-04 11:15:00 68 mm[Hg] [facility] height 2021-04-08 10:30:00 58 [in_i] [facility] weight 2021-04-08 10:30:00 120 [lb_av] [facility] temperature 2021-04-08 10:30:00 97.7 [degF] Common S pirit [facility] bmi 2021-04-08 10:30:00 25.08 kg/m2 Common [facility] - [facility] blood pressure 2021-04-08 10:30:00 136 mm[Hg] [facility] blood pressure 2021-04-08 10:30:00 86 mm[Hg] [facility] height 2021-02-08 09:00:00 58 [in_i] [facility] - [facility] weight 2021-02-08 09:00:00 127.4 [lb_av] [facility] temperature 2021-02-08 09:00:00 96.8 [degF] Common S [facility]irit [facility] bmi 2021-02-08 09:00:00 26.62 kg/m2 [facility] S [facility] respiratory rate 2021-02-08 09:00:00 18 /min Comm on [facility] - [facility] blood pressure 2021-02-08 09:00:00 122 mm[Hg] [facility] systolic [facility] blood pressure 2021-02-08 09:00:00 70 mm[Hg] [facility] - diastolic [facility] height 2021-02-08 09:40:00 58 [in_i] [facility] weight 2021-02-08 09:40:00 127.4 [lb_av] [facility] temperature 2021-02-08 09:40:00 96.8 [degF] Common S [facility] bmi 2021-02-08 09:40:00 26.62 kg/m2 Common [facility] respiratory rate 2021-02-08 09:40:00 18 /min Comm on [facility] blood pressure 2021-02-08 09:40:00 122 mm[Hg] Common [facility] - systolic [facility] blood pressure 2021-02-08 09:40:00 70 mm[Hg] [facility] - diastolic [facility] Systolic blood 2019-12-31 19:27:00 131 mm[Hg] Univer sity of [facility] Diastolic blood 2019-12-31 19:27:00 77 mm[Hg] Unive rsity of [facility] Heart rate 2019-12-31 19:24:00 96 /min Universi ty [facility] Body temperature 2019-12-31 19:24:00 36.5 Gerri Univ ersity [facility] Respiratory rate 2019-12-31 19:24:00 18 /min Univ ersity of [facility] Body weight 2019-12-31 19:24:00 56.065 kg Univers ty [facility] BMI 2019-12-31 19:24:00 25.83 kg/m2 [facility] Systolic blood 2019-12-17 15:17:00 160 mm[Hg] Univer sity of [facility] Diastolic blood 2019-12-17 15:17:00 71 mm[Hg] Unive rsity of pressure [facility] Heart rate 2019-12-17 14:29:00 64 /min Universi ty [facility] Body temperature 2019-12-17 14:29:00 37.11 Gerri Univ ersity of [facility] Respiratory rate 2019-12-17 14:29:00 16 /min Univ ersity of [facility] Body height 2019-12-17 14:29:00 147.3 cm Universi ty [facility] Body weight 2019-12-17 14:29:00 56.926 kg Universi ty of [facility] BMI 2019-12-17 14:29:00 26.23 kg/m2 Universi ty of [facility] Oxygen saturation in 2019-12-17 14:29:00 99 /min University of Arterial blood by [facility] heri Pulse oximetry Branch Systolic blood 2019-11-15 18:08:00 138 mm[Hg] Univer sity of pressure [facility] Diastolic blood 2019-11-15 18:08:00 76 mm[Hg] Unive rsity of pressure [facility] Heart rate 2019-11-15 18:08:00 89 /min Universi ty of [facility] Body temperature 2019-11-15 18:08:00 36.83 Gerri Univ ersity of [facility] Respiratory rate 2019-11-15 18:08:00 14 /min Univ ersity of [facility] Body height 2019-11-15 18:08:00 147.3 cm Universi ty [facility] Body weight 2019-11-15 18:08:00 55.566 kg Universi ty [facility] BMI 2019-11-15 18:08:00 25.60 kg/m2 [facility] ty [facility] Systolic blood 2019-11-02 22:47:00 165 mm[Hg] Univer sity of pressure [facility] Diastolic blood 2019-11-02 22:47:00 57 mm[Hg] Unive rsity of pressure [facility] Heart rate 2019-11-02 22:47:00 99 /min Universi ty of [facility] Body temperature 2019-11-02 22:47:00 36.61 Gerri Univ ersity of [facility] Respiratory rate 2019-11-02 22:47:00 20 /min Univ ersity of [facility] Oxygen saturation in 2019-11-02 22:47:00 98 /min University of Arterial blood by [facility] heri Pulse oximetry Branch Body weight 2019-11-02 01:30:00 64.32 kg Universi ty of [facility] BMI 2019-11-02 01:30:00 29.64 kg/m2 [facility] Body height 2019-10-27 02:27:00 147.3 cm [facility] Procedures Procedure Date / Time Performing Clinician Source Performed PHOSPHORUS 2021-10-11 09:52:00 Loree [facility] MAGNESIUM 2021-10-11 09:52:00 Loree [facility] FERRITIN SERUM 2021-10-11 09:52:00 Chong Faustin [facility] BASIC METABOLIC PANEL 2021-10-11 09:52:00 Loree [facility] (NA, K, CL, CO2, GLUCOSE, Medica l Branch BUN, CREATININE, CA) CBC WITH DIFF 2021-10-11 09:52:00 Loree [facility] TROPONIN I 2021-10-10 09:39:00 Speedy [facility] COMP. METABOLIC PANEL 2021-10-10 09:39:00 Speedy Alonso [facility] ([id number]) Medical Branch CBC WITH DIFF 2021-10-10 09:39:00 Speedy [facility] TROPONIN I 2021-10-10 02:33:00 Speedy [facility] TROPONIN I 2021-10-09 17:05:00 Speedy [facility] CT ABDOMEN PELVIS WO 2021-10-09 12:19:00 Kalani Reynolds [facility] CONTRAST [facility] COVID-19 (ID NOW RAPID 2021-10-09 11:31:00 Kalani Reynolds [facility] TESTING) Medical Branch LAB ONLY COVID 2021-10-09 11:31:00 Kalani Reynolds [facility] INTERPRETATION [facility] XR CHEST 1 VW 2021-10-09 11:25:05 Kalani Reynolds [facility] LIPASE 2021-10-09 10:13:00 Kalani Reynolds [facility] TROPONIN I 2021-10-09 10:13:00 Kalani Reynolds [facility] COMP. METABOLIC PANEL 2021-10-09 10:13:00 Kalani [facility] ([id number]) Medical Branch LIPID PANEL ([id number])(TOTAL 2021-10-09 10:13:00 Alonso Ruff Un [facility] CHOLESTEROL, [facility] TRIGLYCERIDES, HDL) CBC WITH DIFF 2021-10-09 10:13:00 Kalani Reynolds [facility] PROTHROMBIN TIME / INR 2021-10-09 10:13:00 Kalani Reynolds [facility] ACTIVATED PARTIAL 2021-10-09 10:13:00 Kalani Reynolds [facility] THRMPLAS BARBARA [facility] HB ECG ROUTINE & RHYTHM 2021-10-09 09:58:02 Kalani Reynolds [facility] STRIP [facility] NOTICE OF PRIVACY 2021-10-09 09:55:35 Doctor Henry, [facility] PRACTICES [facility] CONSENT/REFUSAL FOR 2021-10-09 09:55:07 Doctor [facility] DIAGNOSIS AND TREATMENT [place] [facility] DISCLOSURE AND CONSENT, 2019-12-31 05:01:00 Doctor Henry, [facility] MEDICAL AND SURGICAL [facility] PROCEDURES XR KNEE 3 VW BILATERAL 2019-12-17 15:36:25 Emanuel Bridges [facility] FLU VACC ([id number]), 6+ 2019-12-17 15:17:05 Emanuel Bridges [facility] MONTHS, IM, QUAD Medical Branch XR CHEST 2 VW 2019-11-15 16:40:00 Seferino Peng [facility] ASSIGNMENT OF BENEFITS 2019-11-15 16:24:52 Doctor Unakylah, [facility] [place] XR CHEST 1 2019-11-02 21:57:07 Antonieta Reynoso [facility] XR CHEST 1 2019-11-02 20:08:00 Waldo Fallon [facility] XR CHEST 1 2019-11-02 10:21:07 Neha Garcia [facility] BASIC METABOLIC PANEL 2019-11-02 09:25:00 Waldo Fallon [facility] (NA, K, CL, CO2, GLUCOSE, Medica l Branch BUN, CREATININE, CA) CBC WITH DIFF 2019-11-02 09:25:00 Vasyl [facility] XR CHEST 1 VW 2019-11-01 10:34:43 Vasyl [facility] BASIC METABOLIC PANEL 2019-11-01 10:31:00 Vasyl [facility] (NA, K, CL, CO2, GLUCOSE, Medica l Branch BUN, CREATININE, CA) CBC WITH DIFF 2019-11-01 10:31:00 Vasyl [facility] XR CHEST 1 VW 2019 20:50:00 Vasyl [facility] XR CHEST 1 VW 2019 10:54:17 Jose [facility] BASIC METABOLIC PANEL 2019 10:26:00 Vasyl [facility] (NA, K, CL, CO2, GLUCOSE, Medica l Branch BUN, CREATININE, CA) CBC WITH DIFF 2019 10:26:00 Vasyl [facility] POCT GLUCOSE (AUTOMATED) 2019-10-30 18:32:00 RafitaKendrick C U niversity [facility] POCT GLUCOSE (AUTOMATED) 2019-10-30 13:33:00 RafitaKendrick C U niversity [facility] XR CHEST 1 VW 2019-10-30 09:07:00 Jose [facility] BASIC METABOLIC PANEL 2019-10-30 06:50:00 Vasyl [facility] (NA, K, CL, CO2, GLUCOSE, Medica l Branch BUN, CREATININE, CA) CBC WITH DIFF 2019-10-30 06:50:00 Vasyl [facility] POCT GLUCOSE (AUTOMATED) 2019-10-30 02:02:00 Kendrick Eller C U niversity [facility] POCT GLUCOSE (AUTOMATED) 2019-10-29 23:25:00 RafitaJean-PierreKendrick C U niversity [facility] POCT GLUCOSE (AUTOMATED) 2019-10-29 18:45:00 RafitaKendrick C U niversity [facility] POCT GLUCOSE (AUTOMATED) 2019-10-29 13:53:00 [facility]OL[facility] PANEL 2019-10-29 11:45:00 Gurinder [facility] (NA, K, CL, CO2, GLUCOSE, Medica l Branch BUN, CREATININE, CA) CBC WITH DIFF 2019-10-29 11:45:00 Gurinder [facility] XR CHEST 1 VW 2019-10-29 10:54:00 Gurnider [facility] POCT GLUCOSE (AUTOMATED) 2019-10-29 06:04:00 [facility]SE (AUTOMATED) 2019-10-29 03:20:00 [facility] PO[facility] GLUCOSE (AUTOMATED) 2019-10-29 02:21:00 [facility] PO[facility] GLUCOSE (AUTOMATED) 2019-10-28 21:56:00 Kendrick Eller U [facility] CBC WITH DIFF 2019-10-28 21:10:00 Gurinder [facility] XR CHEST 1 VW 2019-10-28 20:49:00 Gurinder [facility] SURGICAL PATHOLOGY EXAM 2019-10-28 20:29:00 Kendrick [facility] N[facility]E BLOCK 2019-10-28 19:55:08 Roshni [facility] PREPARE PACKED RBC 2019-10-28 19:50:49 Derrick Andres [facility] TRAN[facility]ACK[facility] RBC 2019-10-28 18:38:15 Mili Perry [facility] INTUBATION 2019-10-28 18:03:32 Facundo Perrysay [facility] CYTO PLEURAL FLUID 2019-10-28 17:18:00 Kendrick Eller [facility] ASPIRATE OR ABSCESS 2019-10-28 17:16:34 Kendrick Eller [facility] CULTURE(AEROBIC/ANAEROBIC Medica l Branch ) AFB CULTURE 2019-10-28 17:16:34 Kendrick Eller [facility] FUNGUS (ROUTINE) CULTURE 2019-10-28 17:16:34 Kendrick Eller [facility] ARTERIAL LINE 2019-10-28 16:20:30 Samples, [facility] HB ABO GROUPING 2019-10-28 16:15:00 Samples, [facility] VIDEO ASSISTED 2019-10-28 15:51:00 Kendrick Eller [facility] THORACOSCOPY [facility] PLEURODESIS 2019-10-28 15:51:00 Kendrick Eller [facility] PLEURAL BIOPSY 2019-10-28 15:51:00 Kendrick Eller [facility] POCT GLUCOSE (AUTOMATED) 2019-10-28 12:55:00 Kendrick Eller [facility] XR CHEST 1 VW 2019-10-28 08:40:00 Vasyl [facility] COVID-19 (ID NOW RAPID 2019-10-28 02:36:00 [facility] PO[facility] GLUCOSE (AUTOMATED) 2019-10-28 00:25:00 Kendrick Eller [facility] POCT GLUCOSE (AUTOMATED) 2019-10-27 23:33:00 Kendrick Eller [facility] PNEUMOCOCCAL ANTIGEN 2019-10-27 22:17:00 Waldo Fallon [facility] SPUTUM CULTURE 2019-10-27 21:12:00 Vasyl [facility] POCT GLUCOSE (AUTOMATED) 2019-10-27 18:26:00 Kendrick Eller U [facility] BASIC METABOLIC PANEL 2019-10-27 09:48:00 Lynda Fitzpatrick [facility] (NA, K, CL, CO2, GLUCOSE, Medica l Branch BUN, CREATININE, CA) CBC WITH DIFF 2019-10-27 09:47:00 Lynda Fitzpatrick [facility] POCT GLUCOSE (AUTOMATED) 2019-10-27 04:09:00 Kendrick Eller U [facility] POCT GLUCOSE (AUTOMATED) 2019-10-26 21:53:00 Jorden De Los Santos [facility] MRSA / MSSA SCREEN BY 2019-10-26 20:34:00 Zack [facility] PCR, NARES [facility] CT THORAX WO CONTRAST 2019-10-26 16:56:04 [facility] 2019-10-26 16:07:00 Jorden De Los Santos [facility] BLOOD CULTURE SCREEN 2019-10-26 15:19:00 Sj Dixon [facility] BLOOD CULTURE SCREEN 2019-10-26 13:30:00 Sj Dixon [facility] BLOOD CULTURE WORKUP 2019-10-26 13:30:00 Zack [facility] GRAM POSITIVE BLOOD 2019-10-26 13:30:00 Sj Dixon [facility] DNA [facility] PROBE-AEROBIC POCT GLUCOSE (AUTOMATED) 2019-10-26 13:14:00 Jorden De Los Santos [facility] BASIC METABOLIC PANEL 2019-10-26 08:52:00 Sj Dixon [facility] (NA, K, CL, CO2, GLUCOSE, Medica l Branch BUN, CREATININE, CA) CBC WITH DIFF 2019-10-26 08:52:00 Sj Dixon Dalton o [facility] GLYCOSYLATED HEMOGLOBIN 2019-10-26 08:52:00 Amari Lynda [facility] (A1C) [facility] C-REACTIVE PROTEIN 2019-10-26 03:37:00 Amari Lyndajosie [facility] SEDIMENTATION RATE 2019-10-26 03:37:00 Amari Lynda Karissa [facility] PROCALCITONIN 2019-10-26 03:37:00 Lynda Fitzpatrick [facility] POCT GLUCOSE (AUTOMATED) 2019-10-26 01:15:00 Jorden De Los Santos [facility] CT LUMBAR SPINE WO 2019-10-26 00:47:01 Lynda [facility] URINALYSIS 2019-10-25 18:07:00 Jero Hinkle [facility] PROTEIN CREAT RATIO URINE 2019-10-25 18:07:00 Jero Hinkle [facility] SODIUM, URINE RANDOM 2019-10-25 18:07:00 Jero Hinkle [facility] XR CHEST 1 VW 2019-10-25 16:29:50 Zack [facility] BASIC METABOLIC PANEL 2019-10-25 09:22:00 Lynda Fitzpatrick [facility] (NA, K, CL, CO2, GLUCOSE, Medica l Branch BUN, CREATININE, CA) CBC WITH DIFF 2019-10-25 09:22:00 Amari Lynda [facility] XR SHOULDER 2+ VW RIGHT 2019-10-23 19:25:30 Zack [facility] LUNG PERFUSION ONLY 2019-10-22 18:26:53 [facility] W/DOPPLER 2019-10-22 16:03:19 Isidro [facility] BILATERAL VENOUS DUPLEX 2019-10-22 15:46:16 Magali [facility] LOWER EXTREMITY BY Medical Bran h VASCULAR LAB MAGNESIUM 2019-10-22 08:28:00 Isidro [facility] TROPONIN I 2019-10-22 08:28:00 Bridget [facility] BASIC METABOLIC PANEL 2019-10-22 08:28:00 Jorden De Los Santos [facility] (NA, K, CL, CO2, GLUCOSE, Medica l Branch BUN, CREATININE, CA) CBC WITH DIFF 2019-10-22 08:28:00 Magali [facility] ACTIVATED PARTIAL 2019-10-22 08:28:00 Magali [facility] THRMPLAS [facility] N-TERMINAL PRO-BNP 2019-10-22 08:28:00 [facility] 2019-10-22 05:15:00 Bridget [facility] CT THORAX WO CONTRAST 2019-10-21 19:50:29 Earl Hassan [facility] XR CHEST 1 VW COVID 2019-10-21 17:56:31 Earl Hassan [facility] Medical Branch TROPONIN I 2019-10-21 17:41:00 Jorden De Los Santos [facility] COMP. METABOLIC PANEL 2019-10-21 17:41:00 Earl Hassan [facility] ([id number]) Medical Branch CBC WITH DIFF 2019-10-21 17:41:00 Earl Hassan [facility] PROTHROMBIN TIME / INR 2019-10-21 17:41:00 Jorden De Los Santos [facility] D-DIMER 2019-10-21 17:41:00 Earl Hassan Rozina [facility] COVID-19 (ID NOW RAPID 2019-10-21 17:41:00 Earl Hassan [facility] TESTING) Medical Branch EKG-12 LEAD 2019-10-21 17:36:32 Doctor Unasswinston, [facility] Name [facility] EKG-12 LEAD 2019-10-21 17:23:52 Earl Hassan [facility] NOTICE OF PRIVACY 2019-10-21 17:02:16 Doctor Unassigned, [facility] PRACTICES [facility] [place] [facility] ADMISSION 2019-10-21 05:01:00 Doctor Unakylah, [facility] Name [facility] Plan of Care Planned Activity Planned Date Details Comments Source Future Scheduled Test 2020-05-27 Breast Cancer Scrn [facility] 00:00:00 (Yearly) [code = Breast Cancer Scrn (Yearly)] Future Scheduled Test 2020-05-27 Breast Cancer Scrn [facility] 00:00:00 (Yearly) [code = Breast Cancer Scrn (Yearly)] Future Scheduled Test 2020-05-27 Breast Cancer Scrn [facility] 00:00:00 (Yearly) [code = Breast Cancer Scrn (Yearly)] Future Scheduled Test 2020-04-16 Screening for malignant [facility] 00:00:00 neoplasm of colon (procedure) [code = 766932731] Future Scheduled Test 2020-04-16 Screening for malignant [facility] 00:00:00 neoplasm of colon (procedure) [code = 382321731] Future Scheduled Test 2020-04-16 Screening for malignant [facility] 00:00:00 neoplasm of colon (procedure) [code = 672506704] Future Scheduled Test 2017-05-10 Imm Pneumococcal 65+ (2 [facility] 00:00:00 - PCV) [code = Imm Pneumococcal 65+ (2 - PCV)] Future Scheduled Test 2017-05-10 Imm Pneumococcal 65+ (2 [facility] 00:00:00 - PCV) [code = Imm Pneumococcal 65+ (2 - PCV)] Future Scheduled Test 2017-05-10 Imm Pneumococcal 65+ (2 [facility] 00:00:00 - PCV) [code = Imm Pneumococcal 65+ (2 - PCV)] Future Scheduled Test 1956-05-02 COVID-19 Vaccine (#1) [facility] 00:00:00 [code = COVID-19 Vaccine (#1)] Future Scheduled Test 1956-05-02 COVID-19 Vaccine (#1) [facility] 00:00:00 [code = COVID-19 Vaccine (#1)] Future Scheduled Test 1956-05-02 COVID-19 Vaccine (#1) [facility] 00:00:00 [code = COVID-19 Vaccine (#1)] Future Scheduled Test 1955 Fluoride Varnish [code [facility] 00:00:00 = Fluoride Varnish] Encounters Start End Encounter Admission Attending Care Care Encounter Source Date/Time Date/Time Type Type Clinicians Facility Department ID 2022-06-03 Outpatient Epps, STLMLC [facility] [id number] Common 09:41:02 [facility] [address] [facility] 2022-04-28 Outpatient Epps, STLMLC [facility] [id number] Common 09:52:00 Deja 24456 [facility] 2022-04-27 Outpatient Epps, STLMLC [facility] [id number] Common 08:13:01 Deja [id number] [facility] 2022-04-14 Outpatient Epps, STLMLC [facility] [id number] Common 14:58:01 Deja 08917 [facility] 2022-02-25 Outpatient Fung, Na [facility] [id number] 2 Common 14:49:01 [id number] [facility] 2022-02-24 Outpatient Fung, Na [facility] STLMLC [id number] 2 Common 09:36:04 [facility] 2022-02-01 Outpatient Fung, Na STLMLC [facility] [id number] 2 Common 09:44:02 [facility] 2022-01-27 Outpatient Fung, Na STLMLC [facility] [id number] 2 Common 15:18:03 [facility] 2021-12-23 Outpatient Fung, Na STLMLC [facility] [id number] 2 Common 10:16:08 [facility] 2021-10-27 Outpatient Fung, Na STLMLC [facility] [id number] 2 Common 09:57:02 [facility] 2021-10-18 Outpatient Fung, Na STLMLC [facility] [id number] 2 Common 10:54:01 [facility] 2021-09-02 Outpatient Fung, Na STLMLC [facility] [id number] 2 Common 08:22:00 [facility] 2021-08-31 Outpatient Fung, Na STLMLC [facility] [id number] 2 Common 09:35:07 [facility] 2021-08-19 Outpatient Fung, Na STLMLC [facility] [id number] 2 Common 08:55:01 [facility] 2021-08-16 Outpatient Fung, Na STLMLC [facility] [id number] 2 Common 13:45:01 [facility] 2021-07-27 Outpatient Fung, Na STLMLC [facility] [id number] 2 Common 16:36:02 [facility] 2021-04-30 Outpatient Fung, Na STLMLC [facility] [id number] 2 Common 09:07:02 [facility] 2021-04-07 Outpatient Fung, Na STLMLC [facility] [id number] 2 Common 14:39:05 [facility] 2021-04-07 Outpatient Fung, Na STLMLC [facility] [id number] 2 Common 14:31:34 [facility] 2021-04-07 Outpatient Rossy Fung STLMLC [facility] [id number] 2 Common 14:19:09 [id number] [facility] 2021-04-07 Outpatient Rossy Fung STLMLC [facility] [id number] 2 Common 14:17:42 [id number] [facility] 2022-03-24 2022-03-24 (TEL) STLMLC ST[facility] [id number] Co mmon 00:00:00 00:00:00 [facility] 2022-03-01 2022-03-01 CAV Evelyn 2.16.840. 2.16.840.1. CLAC [id number] [facility] 15:30:00 16:00:00 Revisit: Tom [id number] Medical Gap [id number] Closure & [id number] Clinical Check-in 2022-02-28 2022-02-28 (TEL) STLMLC STLMLC [id number] Co mmon 00:00:00 00:00:00 [facility] 2022-02-28 2022-02-28 OL DIG E/M STLMLC STLMLC [id number] Common 00:00:00 00:00:00 [facility] 01-30 Spir it MIN [facility] 2022-02-02 2022-02-02 (TEL) STLMLC STLMLC [id number] Co mmon 00:00:00 00:00:00 [facility] 2022-02-02 2022-02-02 OL DIG E/M STLMLC STLMLC [id number] Common 00:00:00 00:00:00 [facility] 01-30 Spir it MIN [facility] 2021-12-24 2021-12-24 OFFICE STLMLC STLMLC [id number] Co mmon 00:00:00 00:00:00 VISIT [facility] LEVEL 4 [facility] 2021-12-20 2021-12-20 (TEL) STLMLC STLMLC [id number] Co mmon 00:00:00 00:00:00 Spirit [facility] 2021-12-16 2021-12-16 (TEL) STLMLC STLMLC [id number] Co mmon 00:00:00 00:00:00 [facility] 2021-10-29 2021-10-29 OL DIG E/M STLMLC STLMLC [id number] Common 00:00:00 00:00:00 SVC 21+ [facility] MIN [facility] 2021-10-13 2021-10-13 (TEL) STLMLC STLMLC [id number] Co mmon 00:00:00 00:00:00 [facility] 2021-10-12 2021-10-12 Transition RUMA Duran 1.2.840.114 [id number] Univers 00:00:00 00:00:00 of [facility] Jessie MCGINNISY [id number] it y of [place] [id number] [facility] [place] [place] [phone] [address] 2021-10-09 2021-10-11 Outpatient X [facility]OXIEPAUL [facility] [id number] Univers 04:54:00 19:35:00 CHONG ity [facility] 2021-10-09 2021-10-11 Emergency Kalani Reynolds [facility] 1.2.840 .114 [id number] Univers 04:54:00 19:35:00 [facility] [id number] ity [place] [id number] [place] [phone] [address] ([facility]) 2021-09-24 2021-09-24 [place] [id number] [facility] 07:10:00 07:10:00 0715 [facility] 2021-09-24 2021-09-24 [place] [id number] [facility] 00:00:00 00:00:00 0506 [facility] 2021-09-24 2021-09-24 Outpatient GAYLORD_S DMG [facility] [id number] [facility] 00:00:00 00:00:00 0505 [facility] 2021-09-22 2021-09-22 CAV Evelyn 2.16.840. 2.16.840.1. CLA [id number] [facility] 15:00:00 16:00:00 Tom [id number] [facility] [id number] 2021-09-07 2021-09-07 (TEL) STLMLC STLMLC [id number] Co mmon 00:00:00 00:00:00 [facility] 2021-09-02 2021-09-02 (IN/ASP) STLMLC STLMLC [id number] C ommon 00:00:00 00:00:00 INJ ASP [facility] 2021-08-20 2021-08-20 Outpatient GAYLORD_S [facility] [id number] [facility] 03:21:00 03:21:00 0610 [facility] 2021-08-19 2021-08-19 (IN/ASP) STLMLC STLMLC [id number] C ommon 00:00:00 00:00:00 INJ ASP [facility] 2021-08-17 2021-08-17 OFFICE STLMLC STLMLC [id number] Co mmon 00:00:00 00:00:00 VISIT EST Spir it PT LEVEL 3 [facility] 2021-07-29 2021-07-29 (MCR WELL) STLMLC STLMLC [id number] Common 00:00:00 00:00:00 Medicare Spiri t Wellness [facility] 2021-07-29 2021-07-29 OFFICE STLMLC STLMLC [id number] Co mmon 00:00:00 00:00:00 VISIT EST Spir it PT LEVEL 3 [facility] 2021-07-27 2021-07-27 (TEL) STLMLC STLMLC [id number] Co mmon 00:00:00 00:00:00 [facility] 2021-07-13 2021-07-13 OFFICE STLMLC STLMLC [id number] Co mmon 00:00:00 00:00:00 VISIT Spirit ESTAB PT - CHI LEVEL 4 [facility] 2021-06-16 2021-06-16 (TEL) STLMLC STLMLC [id number] Co mmon 00:00:00 00:00:00 Spirit [facility] 2021-06-15 2021-06-15 OFFICE STLMLC STLMLC [id number] Co mmon 00:00:00 00:00:00 VISIT Spirit ESTAB PT - CHI LEVEL 4 [facility] 2021-05-11 2021-05-11 OL DIG E/M STLMLC STLMLC [id number] Common 00:00:00 00:00:00 [facility] 01-30 Spir it MIN [facility] 2021-05-10 2021-05-10 (TEL) STLMLC STLMLC [id number] Co mmon 00:00:00 00:00:00 [facility] 2021-05-04 2021-05-04 (IN/ASP) STLMLC STLMLC [id number] C ommon 00:00:00 00:00:00 INJ ASP [facility] 2021-04-08 2021-04-08 OFFICE STLMLC STLMLC [id number] Co mmon 00:00:00 00:00:00 VISIT NEW Spir it PT LEVEL 4 - [facility] 2021-03-03 2021-03-03 OL DIG E/M STLMLC STLMLC [id number] Common 00:00:00 00:00:00 [facility] 01-30 Spir it MIN CHI [facility] 2021-02-10 2021-02-10 (COVID STLMLC STLMLC [id number] Co mmon 00:00:00 00:00:00 Inj) COVID Spi rit Injection [facility] 2021-02-09 2021-02-09 (TEL) STLMLC STLMLC [id number] Co mmon 00:00:00 00:00:00 [facility] 2021-02-08 2021-02-08 WELCOME TO STLMLC STLMLC [id number] Common 00:00:00 00:00:00 MEDICARE Spiri t PREV PHY - CHI EXAM [facility] 2021-02-08 2021-02-08 OFFICE STLMLC STLMLC [id number] Co mmon 00:00:00 00:00:00 VISIT EST Spir it PT LEVEL 3 - CHI [facility] 2021-02-03 2021-02-03 (TEL) STLMLC STLMLC [id number] Co mmon 00:00:00 00:00:00 Spirit [facility] 2020-12-07 2020-12-07 (TEL) STLMLC STLMLC [id number] Co mmon 00:00:00 00:00:00 [facility] 2020-10-23 2020-10-23 [place] [id number] [facility] 08:01:00 08:01:00 0813 [facility] 2020-07-27 2020-07-27 [place] [id number] [facility] 06:00:00 06:00:00 0517 [facility] 2020-07-15 2020-07-15 Outpatient DMG DMG [id number] [facility] 08:00:00 08:00:00 0505 [facility] 2019-12-31 2019-12-31 Office Emanuel Bridges [facility] 1.2.840.11 [id number] Univers 13:50:30 16:55:39 Visit Unknown, Attending PRIMARY [id number] ity [facility] [id number] Maame PERKINS [phone] Mo dical [facility] Branch 2019-12-31 2019-12-31 Outpatient R KACIE, [facility] [id number] Univers 14:30:00 14:30:00 ATTENDING ity of [facility] 2019-12-31 2019-12-31 Ancillary Shilpa Jeong [facility] 1.2. 840.114 [id number] Univers 10:55:07 11:55:07 Visit Benny Herrera PRIMARY [id number] ity of CARE [id number] Nasra PERKINS [id number] Mo dical 179 Branch 2019-12-31 2019-12-31 Outpatient R LYNN [facility] [id number] Univers 11:00:00 11:00:00 BENNY roman of [facility] 2019-12-31 2019-12-31 Orders Doctor JOAQUINA 1.2.840.114 [id number] Univers 00:00:00 00:00:00 Only Unassigned, SHAD [id number] ity of [place] [facility] 4.2.7.2.686 Corey as [id number] [address] 2019-12-19 2019-12-19 [facility] 1.2.405.476 [id number] Univers 00:00:00 00:00:00 Emanuel PRIMARY [id number] [id number] [phone] [facility] 044 [place] 2019-12-18 2019-12-18 [facility] 1.2.724.952 [id number] Univers 00:00:00 00:00:00 Emanuel PRIMARY [id number] it [id number] [id number] Mo dicwa [address]44 [place] 2019-12-17 2019-12-17 [facility] 1.2.840.114 [id number] Univers 10:20:00 23:59:00 Encounter Jean-Paul Farris PRIMARY [id number] [id number] [id number] Mo dical 807 [place] 2019-12-17 2019-12-17 Office Emanuel Birdges [facility] 1.2.840.11 [id number] Univers 09:18:36 10:13:32 Visit Jean-Paul Patten PRIMARY [id number] it[id number] [phone] Mo dicwa 044 [place] 2019-12-17 2019-12-17 [facility] [id number] Univers 09:30:00 09:30:00 JEAN-PAULTARAN roman [facility] 2019-11-15 2019-11-17 Office PATRIA Eller 1.2.840.114 [id number] Univers 12:29:49 11:04:37 Visit Kendrick C Y HEALTH [id number] ity of [place] [id number] [facility] 185 Branch 2019-11-15 2019-11-15 Hospital Catcurtist, UNIVERSIT 1.2.840.114 [id number] Univers 11:28:01 23:59:00 Encounter Seferino Y HEALTH [id number] ity of CL[id number] [id number] [facility] 807 Branch 2019-11-15 2019-11-15 Outpatient R CATRETT, [facility] [id number] Univers 00:00:00 00:00:00 SEFERINO ity of [facility] 2019-11-15 2019-11-15 Orders Doctor JOAQUINA 1.2.840.114 [id number] Univers 00:00:00 00:00:00 Only Unassigned, SHAD [id number] ity of [place] [facility] [id number] Corey as [phone] [facility] 009 Branch 2019-11-08 2019-11-08 Outpatient R UNKNOWN, [facility] [id number] Univers 13:00:00 13:00:00 ATTENDING ity of [facility] 2019-11-04 2019-11-04 Case [facility] 1.2.840.114 [id number] Univers 00:00:00 00:00:00 Management Seferino Y HEALTH [id number] ity of [id number] [id number] [facility] 185 Branch 2019-11-04 2019-11-04 Transition Ruma Nelson 1.2.840.114 [id number] Univers 00:00:00 00:00:00 of Care Suad Puentes [id number] ity of [place] [id number] [facility] 403 Branch 2019-11-04 2019-11-04 Transition Ruma Nelson 1.2.840.114 [id number] Univers 00:00:00 00:00:00 of Care Suad Puentes [id number] ity of [place] [id number] [facility] 403 Branch 2019-10-21 2019-11-02 Hospital Earl Hassan 1.2.840.1 [id number] Univers 12:12:00 18:55:00 Encounter Jorden De Los Santos [place] [id number] ity of Rafita Kendrick [facility] [id number] [place] [id number] [facility] 089 Branch 2019-10-28 2019-10-28 Anesthesia CamposRed alonso 1.2.840. 114 [id number] Univers 11:21:00 15:18:00 SansyedaDerricktavia Shad 350.1.1 3.10 ity of Hospital [id number] Corey as [id number] [facility] 103 Branch 2019-10-21 2019-10-21 Emergency X [facility] ERT [id number] Univers 12:03:00 12:03:00 ity of [facility] 2019-07-09 2019-07-09 Outpatient [facility] [id number] [place] 00:00:00 00:00:00 Health 2019-05-28 2019-05-28 Outpatient [facility] [id number] [place] 09:41:49 09:41:49 Health 2019-05-28 2019-05-28 Outpatient [facility] [id number] [place] 00:00:00 00:00:00 Health 2019-05-14 2019-05-14 Outpatient [facility] [id number] [place] 09:19:03 09:19:03 Health 2019-05-13 2019-05-13 Outpatient [facility] [id number] [place] 00:00:00 00:00:00 Health 2019-04-26 2019-04-26 Outpatient [facility] [id number] [place] 10:45:57 10:45:57 Health 2019-04-16 2019-04-16 Outpatient [facility] [id number] [place] 14:01:21 14:01:21 Health 2019-04-16 2019-04-16 Outpatient [facility] [id number] [place] 12:58:29 12:58:29 Health 2019-04-16 2019-04-16 Outpatient [facility] [id number] [place] 11:20:07 11:20:07 [facility] 2019-04-15 2019-04-15 Outpatient [facility] [id number] [place] 00:00:00 00:00:00 [facility] 2019-04-15 2019-04-15 Outpatient [facility] [id number] [place] 00:00:00 00:00:00 [facility] 2019-04-12 2019-04-12 Outpatient [facility] [id number] [place] 16:04:17 16:04:17 [facility] 2019-04-12 2019-04-12 Outpatient [facility] [id number] [place] 15:19:36 15:19:36 [facility] 2019-04-12 2019-04-12 Outpatient [facility] [id number] [place] 00:00:00 00:00:00 [facility] 2019-02-01 2019-02-01 Outpatient [facility] [id number] [place] 14:09:59 14:09:59 [facility] 2018-12-28 2018-12-28 Outpatient [facility] [id number] [place] 00:00:00 00:00:00 [facility] 2018-12-06 2018-12-06 Outpatient [facility] [id number] [place] 11:10:58 11:10:58 [facility] 2018-12-06 2018-12-06 Outpatient [facility] [id number] [place] 10:23:54 10:23:54 [facility] 2018-12-06 2018-12-06 Outpatient [facility] [id number] [place] 00:00:00 00:00:00 [facility] 2018-11-13 2018-11-13 Outpatient [facility] [id number] [place] 00:00:00 00:00:00 [facility] 2018-11-13 2018-11-13 Outpatient [facility] [id number] [place] 00:00:00 00:00:00 [facility] 2018-10-11 2018-10-11 Outpatient [facility] [id number] [place] 10:14:40 10:14:40 [facility] 2018-10-11 2018-10-11 Outpatient [facility] [id number] [place] 09:07:22 09:07:22 [facility] 2018-08-07 2018-08-07 Outpatient [facility] [id number] [place] 10:20:11 10:20:11 [facility] 2018-08-07 2018-08-07 Outpatient [facility] [id number] [place] 08:26:50 08:26:50 [facility] 2018-08-07 2018-08-07 Outpatient [facility] [id number] [place] 00:00:00 00:00:00 [facility] 2018-07-11 2018-07-11 Outpatient [facility] [id number] [place] 14:06:46 14:06:46 [facility] 2018-07-11 2018-07-11 Outpatient [facility] [id number] [place] 13:00:20 13:00:20 [facility] 2018-05-25 2018-05-25 Outpatient [facility] [id number] [place] 00:00:00 00:00:00 [facility] 2018-05-02 2018-05-02 Outpatient [facility] [id number] [place] 00:00:00 00:00:00 [facility] 2018-04-27 2018-04-27 Outpatient [facility] [id number] [place] 08:14:01 08:14:01 [facility] 2018-04-20 2018-04-20 Outpatient [facility] [id number] [place] 00:00:00 00:00:00 [facility] 2018-04-19 2018-04-19 Outpatient [facility] [id number] [place] 00:00:00 00:00:00 [facility] 2018-04-19 2018-04-19 Outpatient [facility] [id number] [place] 00:00:00 00:00:00 [facility] 2018-04-17 2018-04-17 Outpatient [facility] [id number] [place] 08:04:30 08:04:30 [facility] 2018-04-10 2018-04-10 Outpatient [facility] [id number] [place] 08:44:35 08:44:35 [facility] 2018-04-09 2018-04-09 [facility] [facility] [id number] [place] 00:00:00 00:00:00 [facility] 2018-04-06 2018-04-06 Outpatient [facility] [id number] [place] 09:42:58 09:42:58 [facility] 2018-04-06 2018-04-06 Outpatient [facility] [id number] [place] 08:34:43 08:34:43 [facility] 2018-04-06 2018-04-06 Outpatient [facility] [id number] [place] 08:02:30 08:02:30 [facility] 2018-03-30 2018-03-30 Outpatient [facility] [id number] [place] 15:32:31 15:32:31 [facility] 2018-03-19 2018-03-19 Outpatient [facility] [id number] [place] 00:00:00 00:00:00 [facility] 2018-03-08 2018-03-08 Outpatient [facility] [id number] [place] 14:32:20 14:32:20 [facility] 2018-03-02 2018-03-02 Outpatient [facility] [id number] [place] 15:51:25 15:51:25 [facility] 2018-03-02 2018-03-02 Outpatient [facility] [id number] [place] 15:09:28 15:09:28 [facility] 2018-02-23 2018-02-23 Outpatient [facility] [id number] [place] 08:06:50 08:06:50 [facility] 2017-12-27 2017-12-27 Outpatient [facility] [id number] [place] 08:56:13 08:56:13 [facility] 2017-11-27 2017-11-27 Outpatient [facility] [id number] [place] 00:00:00 00:00:00 [facility] 2017-11-14 2017-11-14 Outpatient [facility] [id number] [place] 10:56:24 10:56:24 [facility] 2017-10-27 2017-10-27 Outpatient [facility] [id number] [place] 00:00:00 00:00:00 [facility] 2017-08-02 2017-08-02 Outpatient [facility] [id number] [place] 15:01:28 15:01:28 [facility] 2017-07-14 2017-07-14 Outpatient [facility] [id number] [place] 00:00:00 00:00:00 [facility] 2017-07-05 2017-07-05 Outpatient [facility] [id number] [place] 08:53:53 08:53:53 [facility] 2017-06-29 2017-06-29 Outpatient [facility] [id number] [place] 16:08:32 16:08:32 [facility] 2017-06-26 2017-06-26 Outpatient [facility] [id number] [place] 15:40:20 15:40:20 [facility] 2017-05-17 2017-05-17 Outpatient [facility] [id number] [place] 07:11:41 07:11:41 [facility] 2017-05-14 2017-05-14 Emergency [facility] [id number] [place] 09:17:03 09:17:03 Health 2017-05-14 2017-05-14 Emergency [facility] [id number] [place] 05:31:45 05:31:45 [facility] 2017-05-08 2017-05-08 Outpatient [facility] [id number] [place] 13:03:57 13:03:57 [facility] 2017-05-08 2017-05-08 Outpatient [facility] [id number] [place] 13:02:09 13:02:09 [facility] 2017-05-03 2017-05-03 Outpatient [facility] [id number] [place] 11:03:53 11:03:53 Health 2017-04-19 2017-04-19 Outpatient [facility] [id number] [place] 08:40:33 08:40:33 [facility] 2017-04-07 2017-04-07 Outpatient [facility] [id number] [place] 00:00:00 00:00:00 [facility] 2017-03-10 2017-03-10 Outpatient [facility] [id number] [place] 08:16:47 08:16:47 Health 2017-02-22 2017-02-22 Outpatient [facility] [id number] [place] 11:44:22 11:44:22 [facility] 2017-02-22 2017-02-22 Outpatient [facility] [id number] [place] 09:55:28 09:55:28 [facility] 2017-02-15 2017-02-15 Outpatient [facility] [id number] [place] 00:00:00 00:00:00 [facility] 2017-02-08 2017-02-08 Outpatient [facility] [id number] [place] 09:45:43 09:45:43 [facility] 2017-01-05 2017-01-05 Outpatient [facility] [id number] [place] 15:07:06 15:07:06 [facility] 2016-12-28 2016-12-28 Outpatient [facility] [id number] [place] 08:57:15 08:57:15 [facility] 2016-12-13 2016-12-13 Outpatient [facility] [id number] [place] 12:33:16 12:33:16 [facility] 2016-11-22 2016-11-22 Outpatient [facility] [id number] [place] 16:11:27 16:11:27 [facility] 2016-11-16 2016-11-16 Outpatient [facility] [id number] [place] 11:01:49 11:01:49 [facility] 2016-11-16 2016-11-16 Outpatient [facility] [id number] [place] 10:19:16 10:19:16 [facility] 2016-11-02 2016-11-02 Outpatient [facility] [id number] [place] 09:52:43 09:52:43 [facility] 2016-11-02 2016-11-02 Outpatient [facility] [id number] [place] 08:28:45 08:28:45 [facility] 2016-10-19 2016-10-19 Outpatient [facility] [id number] [place] 08:52:53 08:52:53 [facility] 2016-09-29 2016-09-29 Outpatient [facility] [id number] [place] 13:20:12 13:20:12 [facility] 2016-09-28 2016-09-28 Outpatient [facility] [id number] [place] 08:57:53 08:57:53 [facility] 2016-09-27 2016-09-27 Outpatient [facility] [id number] [place] 00:00:00 00:00:00 [facility] 2016-08-31 2016-08-31 Outpatient [facility] [id number] [place] 08:04:54 08:04:54 [facility] 2016-08-30 2016-08-30 Outpatient [facility] [id number] [place] 14:14:27 14:14:27 [facility] 2016-08-17 2016-08-17 Outpatient [facility] [id number] [place] 14:09:01 14:09:01 [facility] 2016-08-16 2016-08-16 Outpatient [facility] [id number] [place] 06:46:47 06:46:47 [facility] 2016-08-16 2016-08-16 Outpatient [facility] [id number] [place] 06:27:00 06:27:00 [facility] 2016-08-15 2016-08-15 Outpatient [facility] [id number] [place] 12:55:38 12:55:38 [facility] 2016-08-15 2016-08-15 Emergency [facility] [id number] [place] 04:39:38 04:39:38 [facility] 2016-08-15 2016-08-15 Outpatient [facility] [id number] [place] 00:00:00 00:00:00 [facility] 2016-08-14 2016-08-14 Emergency [facility] [id number] [place] 19:46:32 19:46:32 [facility] 2016-08-14 2016-08-14 Outpatient [facility] [id number] [place] 18:37:14 18:37:14 [facility] 2016-08-03 2016-08-03 Outpatient [facility] [id number] [place] 09:36:02 09:36:02 [facility] 2016-08-03 2016-08-03 Outpatient [facility] [id number] [place] 08:20:47 08:20:47 [facility] 2016-07-29 2016-07-29 Outpatient [facility] [id number] [place] 10:23:00 10:23:00 [facility] 2016-07-29 2016-07-29 Outpatient [facility] [id number] [place] 00:00:00 00:00:00 [facility] 2016-07-27 2016-07-27 Outpatient [facility] [id number] [place] 10:36:58 10:36:58 Health 2016-07-27 2016-07-27 Outpatient [facility] [id number] [place] 00:00:00 00:00:00 [facility] 2016-07-26 2016-07-26 Outpatient [facility] [id number] [place] 14:14:11 14:14:11 [facility] 2011-05-09 2011-05-10 Emergency X LITO, [facility] ERT [id number] [facility] 17:40:00 02:37:00 KALANI 3 [facility] 2007-07-26 2007-07-27 Emergency X JAGUAR [facility] ERT [id number] [facility] 23:04:00 01:47:00 HAO 2 [facility] 2006-10-21 2006-10-21 Emergency X EBONY MUÑOZ [facility] ERT [id number] [facility] 09:26:00 20:50:00 EBONY MUÑOZ 5 [facility] 2006-07-10 2006-07-11 Emergency X PAUL [facility] ERT [id number] [facility] 19:52:00 00:18:00 VANI 8 [facility] 2006-03-24 2006-03-25 Emergency X HARLAN GIBBONS [facility] ERT [id number] [facility] 20:44:00 00:30:00 7 [facility] 2005-11-13 2005-11-13 Emergency X TRENT [facility] ERT [id number] [facility] 01:43:00 14:41:00 ADITYA 4 [facility] Results Test Description Test Time Test Comments Results Result Comments Source TROPONIN I 2021-10-09 17:42:13 Test Item Value Reference Range Interpretation Comme nts TROPONIN I (test code = 0.005 ng/mL See_Comment [Au tomated message] The [id number]) system which ge nerated this result tra nsmitted reference range : <=0.034. The reference r carlitos was not used to int erpret this result as normal/abnormal . SADIE (test code = SADIE) Reference (Normal) Range (defined by the 99th percentile reference limit): <= 0.034 ng/mL Note: Cardiac troponin begins to rise 3-4 hours after the onset of ischemia. Repeat in 4-6 hours if the sample was drawn within 3-4 hours of the onset of the symptom and found normal. Diagnosis of myocardial injury is made with acute changes in cTn concentrations with at least one serial sample above the 99th percentile upper reference limit (URL), taken together with the patient's clinical presentation. Biotin has been reported to cause a negative bias, interpret results relative to patient's use of biotin. Lab Interpretation Normal (test code = 23630-9) [facility]32301)(TOTAL CHOLESTEROL, TRIGLYCERIDES, HDL)2021-10-09 16:32:47 Test Item Value Reference Range Interpretation Comments CHOL (test code = 179 mg/dL 120-200 3077673045) HDL (test code = 31 mg/dL See_Comment L [Automated message] [id number]) The system [employer] generated this result transmit mary kay reference range : >=50. The refer ence range was not u sed to interpret th is result as normal/abnormal . HDLC RATIO (test code = See_Comment H [Au tomated message] 1257652675) The system [employer] generated this result transmit mary kay reference range : <=4.5. The refe rence range was not u sed to interpret th is result as normal/abnormal . TRIG (test code = 311 mg/dL 30-170 H 8817591742) LDL CHOL (test code = 86 mg/dL See_Comment [Auto mated message] 23599-4) The system [employer] generated this result transmit mary kay reference range : <=160. The refe rence range was not u sed to interpret th is result as normal/abnormal . VLDL (test code = 62 mg/dL 5-60 H 9416633132) Lab Interpretation (test Abnormal code = 01715-4) [facility] 10:58:45 Test Item Value Reference Range Interpretation Comments APTT Patient (test See_Comment [Automat ed code = 3173-2) message] The system which generated this result transmitted reference range : 23 - 38 Seconds . The reference range was not used to interpr et this result as normal/abnormal . SADIE (test code = SADIE) The [facility] patient population mean normal value for aPTT is 30 seconds. Lab Interpretation Normal (test code = 02364-2) [facility] / [id number] 10:56:28 Test Item Value Reference Range Interpretation Comments PROTIME PATIENT (test See_Comment [Auto mated message] code = 5964-2) The system wh ich generated this result transmitted ref erence range: 12.0 - 1 4.7 Seconds. The re ference range was not u sed to interpret this result as normal/abnor mal. INR (test code = 6301-6) Nor mal INR <1.1; Warfarin Therap eutic range 2.0 to 3. 0 or 2.5 to 3.5, dep ending upon the indica tions. Lab Interpretation (test Normal code = 40699-7) [facility] [id number] 10:44:25 Test Item Value Reference Interpretation Comments Range TROPONIN I (test 0.005 ng/mL See_Comment [Automated code = 8456664959) message] The system which generated this result transmitted reference range : <=0.034. The reference range was not used to interpret this result as normal/abnormal . SADIE (test code = Reference (Normal) SADIE) Range (defined by the 99th percentile reference limit): <= 0.034 ng/mL Note: Cardiac troponin begins to rise 3-4 hours after the onset of ischemia. Repeat in 4-6 hours if the sample was drawn within 3-4 hours of the onset of the symptom and found normal. Diagnosis of myocardial injury is made with acute changes in cTn concentrations with at least one serial sample above the 99th percentile upper reference limit (URL), taken together with the patient's clinical presentation. Biotin has been reported to cause a negative bias, interpret results relative to patient's use of biotin. Lab Interpretation Normal (test code = 79234-8) [facility]. METABOLIC PANEL (99699)2021-10-09 10:33:25 Test Item Value Reference Range Interpretation Comments NA (test code = 140 mmol/L 135-145 6484083323) K (test code = 3.9 mmol/L 3.5-5 5014081783) CL (test code = 105 mmol/L 98-108 8055112571) CO2 TOTAL (test code = 25 mmol/L 23-31 8986451792) AGAP (test code = 2-16 4031306146) BUN (test code = 25 mg/dL 7-23 H 9980149849) GLUCOSE (test code = 134 mg/dL 70-110 H 4298336220) CREATININE (test code = 1.30 mg/dL 0.5-1.04 H 9675526330) TOTAL BILI (test code = 0.4 mg/dL 0.1-1.3 0031562849) CALCIUM (test code = 9.6 mg/dL 8.6-10.6 0719179364) T PROTEIN (test code = 6.3 g/dL 6.3-8.2 6279816572) ALBUMIN (test code = 3.9 g/dL 3.5-5 5413991374) ALK PHOS (test code = 112 U/L 34-122 6825356011) ALTv (test code = 30 U/L 5-35 1742-6) AST(SGOT) (test code = 47 U/L 13-40 H 9061303113) eGFR (test code = mL/min/1.73m2 2084550711) SADIE (test code = SADIE) Association of [...] tests). Lab Interpretation Abnormal (test code = 44014-0) [facility] WITH [id number] 10:33:25 Test Item Value Reference Range Interpretation Comments [...] 11.6-15 L 718-7) HCT (test code = 27.6 % 35.7-45.2 L 4544-3) MCV (test code = 90.5 fL 80.6-95.5 787-2) MCH (test code = 32.5 pg 25.9-32.8 785-6) MCHC (test code = 35.9 g/dL 31.6-35.1 H 786-4) RDW-SD (test code = 40.8 fL 39-49.9 31966-2) RDW-CV (test code = 12.4 % 12-15.5 788-0) PLT (test code = See_Comment [Automated 777-3) message] The sy stem which generated this result transmitted reference range : 166 - 358 10*3/ ?L. The reference r carlitos was not used to interpret this result as normal/abnormal . MPV (test code = 9.6 fL 9.5-12.9 40100-2) NRBC/100 WBC (test See_Comment [Automat ed code = 7495445183) message] The system which generated this result transmitted reference range : 0.0 - 10.0 /100 WBCs. The refer ence range was not u sed to interpret th is result as normal/abnormal . NRBC x10^3 (test code See_Comment [Auto mated = 2138712879) message] The s [employer] which generated this result transmitted reference range : 10*3/?L. The reference range was not used to interpret this result as normal/abnormal . GRAN MAT (NEUT) % 56.2 % (test code = 770-8) IMM GRAN % (test code 0.50 % = 7115258380) LYMPH % (test code = 30.0 % 736-9) MONO % (test code = 9.3 % 5905-5) EOS % (test code = 3.3 % 713-8) BASO % (test code = 0.7 % 706-2) GRAN MAT x10^3(ANC) 3.07 10*3/uL 1.88-7.09 (test code = 8261897611) IMM GRAN x10^3 (test 0.03 10*3/uL 0-0.06 code = 2289153629) LYMPH x10^3 (test code 1.64 10*3/uL 1.32-3.29 = 731-0) MONO x10^3 (test code 0.51 10*3/uL 0.33-0.92 = 742-7) EOS x10^3 (test code = 0.18 10*3/uL 0.03-0.39 711-2) BASO x10^3 (test code 0.04 10*3/uL 0.01-0.07 = 704-7) Lab Interpretation Abnormal (test code = 00626-5) [facility], [id number] 10:32:44 Test Item Value Reference Range Interpretation Comments LIPASE (test code = 2185741309) 1052 U/L 0-220 H Lab Interpretation (test code = Abnormal 91935-3) [facility] KNEE 3 VW [id number] 19:10:48 No fracture or dislocation Mild bilateral tricompartmental osteoarthritis Small right joint effusion. RL 4921 RING PHYSICIAN: JEAN-PAUL PATTEN HISTORY: Osteoarthritis with knee pain TECHNIQUE: 3 standing views of each knee COMPARISON: Noneavailable FINDINGS: There is no fracture or dislocation. Small right suprapatellar effusion. Noleft effusion.. Mild bilateral tricompartmental joint space loss witharticular surface hypertrophic change. Medial compartment is most involved.Soft tissues unremarkable. [facility], Radiant Results Inft User - 12/17/2019 2:12 PM CDTORDERING PHYSICIAN: JEAN-PAUL [place]AN[place]: Osteoarthritis with knee painTECHNIQUE: 3 standing views of each kneeCOMPARISON: None availableFINDINGS:There is no fracture or dislocation. Small right suprapatellar effusion. Noleft effusion.. Mild bilateral tricompartmental joint space loss witharticular surface hypertrophic change. Medial compartment is most involved.Soft tissues unremarkable.IMPRESSIONNo fracture or dislocationMild bilateral tricompartmental osteoarthritisSmall right joint effusion.RL 4728 [facility] 2 [id number] 19:17:43 1. ?No evidence of acute cardiopulmonary disease. 2. Interval improvement of previously noted right-sided pneumothorax. Preliminary Report Dictated by Resident: Juancarlos Brennan ?MD Fly., have reviewed this study and agree withthe above report.EXAM: XR CHEST 2 11/15/2019 11:38 AMHISTORY: 64 years-old Female with follow up lung surgery COMPARISON: CR,11/02/2019 TECHNIQUE: PA and lateral chest radiograph. FINDINGS: The lungs are clear. There is no pleural effusion. Interval improvement ofpreviously noted right-sided pneumothorax, appears now 4 mm. Elevation ofthe right hemidiaphragm likely related to volume loss. The cardiomediastinal silhouette is normal in size. No acute osseous abnormality. [facility], Radiant Results Inft User - 11/15/2019 2:18 PM CDTEXAM: XR CHEST 2 11/15/201911:38 AMHISTORY: 64 years-old Female with follow up lung surgery COMPARISON: CR,11/02/2019TECHNIQUE: PA and lateral chest radiograph.FINDINGS:The lungs are clear. There is no pleural effusion. Interval improvement ofpreviously noted right-sided pneumothorax, appears now 4 mm. Elevation ofthe right hemid iaphragm likely related to volume loss.The cardiomediastinal silhouette is normal in size.No acute osseous abnormality.IMPRESSION1. No evidence of acute cardiopulmonary disease.2. Interval improvement of previously noted right-sided pneumothorax.Preliminary Report Dictated by Resident: Juancarlos Millan MD., have reviewed this study and agree withthe above report. [facility] CHEST 1 [id number] 23:06:47Findings and Impression: ?Overall, no significant change in the intervalsince 11/02/2019 [...] pleura).Heart size is stable. No acute osseous abnormality.[facility] CHEST 1 [id number] 22:41:17FINDINGS-IMPRESSION: #[id number]: The right chest tube terminates over the right lung apex. Right basila rlung opacity, lung volume loss and unchanged small to moderate pleuraleffusion. Slight interval increase in the size of right apical pneumothoraxfrom 1 to 1.4 cm. The cardiomediastinal silhouette is normal. No acute osseous abnormality is identified. Cholecystectomy clips arenoted. Foci of gas are noted about the right axilla and right lateral chestwall suggestive of subcutaneous emphysema. #[id number]: Interval removal of right-sided chest tube. Mild improvement in right- sided pleural effusion. Rightlower lung airspaceopacities. Unchanged small right apical pneumothorax. [...] 64 years-old; Female; sp chest tube out COMPARISON:11/01/2019 [facility], Radiant Results Inft User - 11/02/2019 5:42 PM CDTXR CHEST 1 VW, XR CHEST 1 VWHISTORY: 64 years-old; Female; sp chest tube out COMPARISON: 11/01/2019IMPRESSIONFINDINGS-IMPRESSION:#[id number]:The right chest tube terminates over the right lung apex. Right basilarlung opacity, lung volume loss and unchanged small to moderate pleuraleffusion. Slight interval increase in the size of right apical pneumothoraxfrom 1 to 1.4 cm.The cardiomediastinal silhouette is normal.No acute osseous abnormality is identified. Cholecystectomy clips arenoted. Foci of gas are noted about the right axilla and right lateral chestwall suggestive of subcutaneous emphysema.#[id number]:Interval removal of right-sided chest tube.Mild improvement in right-sided pleural effusion. Right lower lung airspaceopacities. Unchanged small right apical pneumothorax.Right chest wall subcutaneous emphysema. The findings of this study, including pneumothorax, have been discussedwith and acknowledged by Dr. Reynoso in person 11/02/2019 at 5:35 PM withreadback.Preliminary Report Dictated by Resident: Juancarlos Paez MD., have reviewed this study and agree withthe above report.[facility]W 2019-11-02 22:41:17FINDINGS-IMPRESSION: #[id number]: The right chest tube terminates over the right [...] right lateral chestwall suggestive of subcutaneous emphysema. #[id number]: Interval removal of right-sided chest tube. Mild improvement in right-sided pleural effusion. Rightlower lung airspaceopacities. Unchanged small right apical pneumothorax. [...] 64 years-old; Female; sp chest tube out COMPARISON:11/01/2019 [facility], Radiant Results Inft User - 11/02/2019 5:42 PM CDTXR CHEST 1 VW, XR CHEST 1 VWHISTORY: 64 years-old; Female; sp chest tube out COMPARISON: 11/01/2019IMPRESSIONFINDINGS-IMPRESSION:#[id number]:The right chest tube terminates over the right lung apex. Right basilarlung opacity, lung volume loss and unchanged small to moderate pleuraleffusion. Slight interval increase in the size of right apical pneumothoraxfrom 1 to 1.4 cm.The cardiomediastinal silhouette is normal.No acute osseous abnormality is identified. Cholecystectomy clips arenoted. Foci of gas are noted about the right axilla and right lateral chestwall suggestive of subcutaneous emphysema.#[id number]:Interval removal of right-sided chest tube.Mild improvement in right-sided pleural effusion. Right lower lung airspaceopacities. Unchanged small right apical pneumothorax.Right chest wall subcutaneous emphysema. The findings of this study, including pneumothorax, have been discussedwith and acknowledged by Dr. Reynoso in person 11/02/2019 at 5:35 PM withreadback.Preliminary Report Dictated by Resident: Juancarlos Paez MD., have reviewed this study and agree withthe above report.[facility] WITH DIFF 2019-11-02 10:59:00 Test Item Value Reference Range Interpretation Comments WBC (test code = See_Comment H [Automated 9790-2) message] The sy stem which generated this [...] as normal/abnormal . HGB (test code = 7.2 g/dL 11.6-15 L 718-7) HCT (test code = 21.4 % 35.7-45.2 L 4544-3) MCV (test code = 92.2 fL 80.6-95.5 787-2) MCH (test code = 31.0 pg 25.9-32.8 785-6) MCHC (test code = 33.6 g/dL 31.6-35.1 786-4) RDW-SD (test code = 42.8 fL 39-49.9 89740-3) RDW-CV (test code = 13.2 % 12-15.5 788-0) PLT (test code = See_Comment H [Automated 777-3) message] The sy stem which generated this result transmitted reference range : 166 - 358 10*3/ ?L. The reference r carlitos was not used to interpret this result as normal/abnormal . MPV (test code = 8.9 fL 9.5-12.9 L 46600-9) NRBC/100 WBC (test See_Comment [Automat ed code = 9269099697) message] The system which generated this result transmitted reference range : 0.0 - 10.0 /100 WBCs. The refer ence range was not u sed to interpret th is result as normal/abnormal . NRBC x10^3 (test code <0.01 See_Comment [Auto mated = 5538101249) message] The s ystem which generated this result transmitted reference range : 10*3/?L. The reference range was not used to interpret this result as normal/abnormal . GRAN MAT (NEUT) % 72.1 % (test code = 770-8) IMM GRAN % (test code 5.10 % = 1614324839) LYMPH % (test code = 14.4 % 736-9) MONO % (test code = 6.0 % 5905-5) EOS % (test code = 2.1 % 713-8) BASO % (test code = 0.3 % 706-2) GRAN MAT x10^3(ANC) 8.96 10*3/uL 1.88-7.09 H (test code = 7041832707) IMM GRAN x10^3 (test 0.63 10*3/uL 0-0.06 H code = 4058351555) LYMPH x10^3 (test code 1.79 10*3/uL 1.32-3.29 = 731-0) MONO x10^3 (test code 0.75 10*3/uL 0.33-0.92 = 742-7) EOS x10^3 (test code = 0.26 10*3/uL 0.03-0.39 711-2) BASO x10^3 (test code 0.04 10*3/uL 0.01-0.07 = 704-7) Lab Interpretation Abnormal (test code = 77074-0) [facility] METABOLIC PANEL (NA, K, CL, CO2, GLUCOSE, BUN, CREATININE, CA)2019-11-02 10:49:00 Test Item Value Reference Range Interpretation Comments NA (test code = 134 mmol/L 135-145 L 5550637831) K (test code = 3.8 mmol/L 3.5-5 0417793034) CL (test code = 103 mmol/L 98-108 8300354564) CO2 TOTAL (test code = 28 mmol/L 23-31 0338890887) AGAP (test code = 2-16 3620258613) BUN (test code = 14 mg/dL 7-23 8881707666) GLUCOSE (test code = 93 mg/dL 70-110 1966856225) CREATININE (test code = 0.91 mg/dL 0.5-1.04 2483407667) CALCIUM (test code = 8.9 mg/dL 8.6-10.6 3152052340) eGFR Calculation mL/min/1.73m2 (Non-) (test code = 8282567798) eGFR Calculation mL/min/1.73m2 () (test code = 8313028544) SADIE (test code = SADIE) Association of [...] tests). Lab Interpretation Abnormal (test code = 22678-1) [facility] [id number] 18:07:00 Test Item Value Reference Range Interpretation [...] to a previously preliminary mikal ified report. [facility] [id number] 11:45:00 Test Item Value Reference Range Interpretation [...] RDW-SD (test code = 44.3 fL 39-49.9 45800-2) RDW-CV (test code = 13.3 % 12-15.5 788-0) PLT (test code = See_Comment H [Automated 777-3) message] The sy stem which generated this result transmitted reference range : 166 - 358 10*3/ ?L. The reference r carlitos was not used to interpret this result as normal/abnormal . MPV (test code = 8.9 fL 9.5-12.9 L 49526-5) NRBC/100 WBC (test See_Comment [Automat ed code = 8089823929) message] The system which generated this result transmitted reference range : 0.0 - 10.0 /100 WBCs. The refer ence range was not u sed to interpret th is result as normal/abnormal . NRBC x10^3 (test code <0.01 See_Comment [Auto mated = 5252286080) message] The s ystem which generated this result transmitted reference range : 10*3/?L. The reference range was not used to interpret this result as normal/abnormal . GRAN MAT (NEUT) % 74.7 % (test code = 770-8) IMM GRAN % (test code 6.60 % = 1161582824) LYMPH % (test code = 11.4 % 736-9) MONO % (test code = 5.0 % 5905-5) EOS % (test code = 2.0 % 713-8) BASO % (test code = 0.3 % 706-2) GRAN MAT x10^3(ANC) 9.02 10*3/uL 1.88-7.09 H (test code = 7848176526) IMM GRAN x10^3 (test 0.80 10*3/uL 0-0.06 H code = 1903455516) LYMPH x10^3 (test code 1.37 10*3/uL 1.32-3.29 = 731-0) MONO x10^3 (test code 0.60 10*3/uL 0.33-0.92 = 742-7) EOS x10^3 (test code = 0.24 10*3/uL 0.03-0.39 711-2) BASO x10^3 (test code 0.04 10*3/uL 0.01-0.07 = 704-7) Lab Interpretation Abnormal (test code = 46158-2) [facility] METABOLIC PANEL (NA, K, CL, CO2, GLUCOSE, BUN, CREATININE, CA)2019-11-01 11:29:00 Test Item Value Reference Range Interpretation Comments NA (test code = 135 mmol/L 135-145 9844008623) K (test code = 3.6 mmol/L 3.5-5 0579402878) CL (test code = 105 mmol/L 98-108 0769005703) CO2 TOTAL (test code = 29 mmol/L 23-31 7482913770) AGAP (test code = 2-16 L 1685397545) BUN (test code = 16 mg/dL 7-23 0598569403) GLUCOSE (test code = 106 mg/dL 70-110 6947477712) CREATININE (test code = 0.96 mg/dL 0.5-1.04 5058359925) CALCIUM (test code = 8.3 mg/dL 8.6-10.6 L 8519862087) eGFR Calculation mL/min/1.73m2 (Non-) (test code = 2538166565) eGFR Calculation mL/min/1.73m2 () (test code = 1658326760) SADIE (test code = SADIE) Association of [...] tests). Lab Interpretation Abnormal (test code = 85028-8) [facility] [id number] 22:17:51 Interval removal of right basilar chest tube. There appears to be a smallright apical pneumothorax,similar to slightly increased in size comparedto the most recent prior chest x-ray. This was discussed with Dr. Galdamez at 5:16 PM on [address] Bill Rubin. Stable right apical chest tube position with unchanged right basilaropacity and small pleural effusion. Preliminary Report Dictated by Resident: Poppy Odom I, Bill Rubin MD., have reviewed this study and agree [...] out. Findings:There is been interval removal of a chest [...] appears to be a smallright apical pneumothorax, similar to slightly increased in size comparedto the most recent prior chest x-ray. This was discussed with at 5:16 PM on [address] Bill Rubin.Stable right apical chest tube position with unchanged right basilaropacity and small pleural effusion.Preliminary Report Dictated by Resident: Poppy Durand, Bill Rubin MD., have reviewed this study and agree with the abovereport.[facility] [id number] 16:01:00 Test Item Value Reference Range Interpretation Comments Blood Culture-Aerobic No organisms No growth Previo us (test code = 10887-1) isolated prelim inary verified result was Culture [...] Culture-Anaerobic isolated preliminar y (test code = 14277-0) verifi ed result was Culture In Progress [...] CDT Lab Interpretation Normal (test code = 87091-6) [facility] [id number] 14:38:00 Test Item Value Reference Range Interpretation Comments Case Report (test code Surgical Pathology ? ? = [id number]) ?Case: [id number] ? Authorizing Provider: ?Kendrick Eller MD ? ? ?Collected: ? 10/28/2019 1529 ?Ordering Location: ? ? [facility] Post Received: ?10/28/2019 1534 ? Anesthesia Care Unit ? Pathologist: ? Mutmarlenykumarchristiane, ? MD Yolis ?Specimen: ? ?PLEURAL, RIGHT, PLEURAL RIND ? Final Diagnosis (test w9remKEaSZAbu5irNVMynU code = 1396965374) FuZzEwMzNcZnRuYmpcdWMx VXmtxrBmEImdy4NsH1QbTf AwMFxhbnNpXGRlZmxhbmcx OLZpVZQ6ehXaMTPwWEvnGV ExHBojLi5fqLBhyFpeJlYa LEUjn9ceobPOgttxwDa5d3 vvUUCfWjN6cIJcBEbuO4il jqYjiBRoKOUzUMx8mT06LP ErdW9kyNUnOKfjufOyXaV6 JSpkSSGxZmX6UZDaiXKgNX PgO2fvCFUjLEsdWBVvRLzl bXYiUHO5uUznn8D6zXKvdJ NhsYrrRfAvSuFkNVQVq2Zj IDa0gUaqR6XdATPxYjN0oP QgUGFyYWdyYXBoIEZvbnQ7 wY50YRogqxQ4cXUqk7Anv8 4qy606qN7rjVDzSOF6AEPo HDPzwGRhZSYgQOY7HKJksH JqX0hbCCmcSB9ebrqoFYY5 MFxtYXJndDcyMFxtYXJnYj AfuPXlKGQiiOlxKHzsf960 AIH4GaGbHE4cC5Kgh5S8lE 9maXRcZGVmdGFiNzIwXGZv rn6skUTwRZutk6CnEHJ2if V3nTFjqOHaOJWfBL88Qrfo g8DcXllnCGR8BXUpjdWti0 Icj7fhAeGhxtWtC4acL9Op ZHJoZWFkXHBnYnJkcmZvb3 Gwh6RamAFlzNg1c3njLDWw OETodYgmn1hiXYI6LHOzJ2 M4hAFvq9qeOSksPTFqjUO9 txOcVMLhvMHaB5IehW0tFO atNL6hrqh4f8hdOtYcBB0z hpfbb3rtPVhpORSlADP0Th SwDQCjp8RkvzgvMoAsv4Es lFQfPOpsV56py369PWMlma TfA6njzPCjfmoexFPxqgvb MIiifkO6UAPpUIIjTOcgXH YxXGZzMjBcbGFuZzEwMzNc aGljaFxmMVxkYmNoXGYxXG ovU1jtMmXoYyDoGWwqUMPd JT1cDWnSPJOPDAOHZHdWPD wgLOoXQYSNJ501XQFrdnYv GRBmIEHTPOCIWW0ADGHnKp BBWv5WLTNuTK6WBLyRLN9M ORPNEM4KLSVQI2VTZShrIE JlLDAtQD6aCl8bRxuOAtfN VNRAOUJYVOohLIpJG7USPL mBJC6AXIGSVLEpbQVvWZPh MIDyRI5ASK8SDLpNSpTIX8 kgSURFTlRJRklFRFxwYXIg CNDySK3nR7EPRZUCML0YXj RccGFyXHBhclxwbGFpblxm MVxmczIyXGxhbmcxMDMzXG vpR2koXnRnXLRidVumROfg x6UbRYJsULBuYnrazpGqWG Fvw1xpNDN7bt4tatgpHT7y IERPXHBsYWluXGYxXGZzMj BcbGFuZzEwMzNcaGljaFxm ENngAqPlYEYaKVnpC7bhAr NgJuDfNFzpEZD9h2zcmYTr XHNzdGVjZjIyMDAwXGFuc2 lcZGVmbGFuZzEwMzNcZnRu HtuexZXgEJEvXrQik0cjs2 60nWEbw1wiTWUwDgA3qOOh AINqiKrqxgk2oTjkSjCjJS Twx2oacdIpKwPnQNFvLXOs TCFtgBFeM986d5wuu6qpsl RxqHA3BBKcQZK7KJncfwHg mlH9HTheaVLhVfA7SBvzxr DrNKldaqDtpyOgZlw3RYDu G171NBU2eWdpw5njQJG3SZ QhOOIySdKbHd4htJDuN692 RPNnLFEAYEAkeEb6QRRdip HkohJcoZLPh445O470x3iu SRZlkaEevEaBtyffs4zgA0 19XHBhcGVydzEyMjQwXHBh gGAtmBW8FMCsBV4doxxtUK ffXYleWHHimzM6ZVFysJTe V5WrSZOcKK6vzrogHQM0HV zaSPJzKPM0CtAeJZElr8Ht snz0AjXoxt6wfd58EQL4s6 EupVaoZIM9BTY7MnMcKv8t qOKoQSDiGV5dxKvre26xZU PdAL2hgB7clz5njzQbCEal yRKajQQ6pfrxJSY7WNBdxe Oat4Mbo1ywFaPdjyCaP3hw N5TuFOLwBEToHYRmJlAcli Sxf3Dgt5XsyGKwdBd3u1ey GWFpZHTlwJpoy0dfDRB1AZ WkP5N9wIWto5lrRWmbXRYs uFL3faJ4YQRnwMQmE5TznG 4xLYOaAS1spsz5n4izMGI8 ECivYLHiMoK7omU0MIUobJ OiODKeqZwzPXeci587AVB1 NqKzCIAmw6UjM5FgcVnsF0 1oqWmjE69jFIJffKaywQ4t sZiueY1nVkWwPdRnTFftDV AvIOYwyDUuMQN0mJSgrlZi fSOroLJjBUOiYQemMKO6sR BhclxwbGFpblxmMVxmczIw UXtvkyigZGZkOSobM9ovQw AaNOCznYyiRFmrl8YpXJGb OWYgLkrzelSjOTc5vuAtYF QagkSWYGfzypBgbEVzu52j YWxseSByZXZpZXdlZCBhbG axv0WdC7dwWL0kZ9YmjNNo mxHatvBsHLgoIQSoc3i5oW HsmVqyx8GtdLErQW10czLm MHNsGTS3NLHgw3sfFA75lp bdBrWznI61rbUjtwOfPUOv x0ruL8opiBIrm7Swf4Iymo WwBLvuj7YzQR7xvSLxdmoo pEX6UDJlvJGhmiWhupQ8oU xrVBSflR2frZ3yeQjppQ0j YtQlOmGrFOwwEJ0vLMTjX8 oagPTrFYZiVSLeW8lhFeXq eD1anSsnGNekPaHiLwJxDT xwYXJccGFyXHBhclxzYTE2 GAaktYW5FIhtnU72kZWlGA BsYWluXGYwXGZzMjRccGxh rM3nMiTlDgBhTLraHW5vFE GuT1dtqVViWVPlXLFwP6hm QrTgiQ7lgIhkLJdsGgIfOk ArVXxnpAXpwTTNWDVvv0zs G5tlfVGuqo9nCAClcJ1dTS olM67atX6iHO58PVGyztBe cm8xNLFujKIAYP3KBKwjPX j2WVROxHN0NLFtvHG9esgv UpL5HMUGyOksFGSxHJB9BO hmQ274gMcgRAlvAEg6KOPG pTY4JVUOOUJ6QyZ0R2gfhT FpblxmMVxmczIwXGxhbmcx EQGmVOxdI1mhTlKgXPMmaX ehQJnhe3KzDRKwFVMpCodf wiKtIPd9xdJhXVZrky02 Final Diagnosis Comment k8kbqRFvMJYdgMWtNvZhNG (test code = UsKATey6ikQTBoxFGtVaGb 2238746975) MzNcZnRuYmpcdWMxXGRlZm Ujj1tmj442rBYrl5upEPZc OwA6wNKcDHZtxHIlO600OQ SdJXxxy6kor4QzTBXntFDc q9S4GEPEfmkgmNk0vZilM5 7uw5P2HayjD9crXBSwIFBn Y5SlXQ3uZVTjRbz2JPR3ZH W1SMHrXZDdF2UfNH8zOEVq lIPjHTj1d4xkiTyrKAGsBV H8s6flGRtqqxSkTW5stp4c bWf1k8zuvrXgNXJyLHJsoO ZGSGNrP7HjtOtoTc0adZj9 kMqiMltvGQT5Obg8HH6dgf 48wtb6tWxiQMNbqhviDdH7 ODucVCBtvodeCUw4DQifFI NpaDZjYIAkjGDzB1DgVTmy RL9xvhv5YlZiWL5gwqnnTF mrQBRyEYN8CjWcLHTdl7Nv gdvjCxJujc8ajd03EAS1x1 QkyHfuBJJ3BRR3RhMrPu5b nVYcXFUlPK4kYiFcsRTkWX Xcoe79kAuvEKtewcYrxH7y NtZcPBAxhZEcWKHhMY3peW NiFCLtqX7sfifuDAEhWsYq tlxyIKDcaTjzlrBfZk8rfI oaQAV6BXacP8aidL7zSqT6 KRbyQ4xjaI3hRVy4POgylH G5YGQrsQ6jUQ0ewowqi2lv JAU3DSlwSQReozK8qlHuPP NgyYNbR8PxlP10KcZokYTe J4NagJ6aPLzmKPZdqnz2Ep McWk0cfDZisIP0BRyxQbet YWdlXHBnbmNvbnRccGduZG VjXHBsYWluXHBsYWluXGYw ZADnRgWodZayzRcvkX3oFv PpRoAuZLhkDM1mWBMlU2zp lWTtXMErFPGlJ6jzJfPskF 9jaFxmMVxmczIwXHBhciBB UPUtiCIhjQvvkV8nyB7zrA 9nkKqmyI8snWKnoWJfiHTa aRJxhqSyyjPtswLwd1YcBT Rhb60aFnjiT9trFWDgZD5h TNclWV8lY1T3zWKcXvXsyK YhOSRseoQBqGlfD89ilCLp yAHrBSNxBABsxrvmf2GxPQ GoTRJoqrWtAAFfvz2zenzs dGUuIFxwYXJ9 Clinical Information Pleural effusion [J90] (test code = 6947965177) Gross Description (test i0dkzUBcKJIdrINfPrXjQB code = 7722601783) ScPRDfk4wpUFOaeYCdMxRb MzNcZnRuYmpcdWMxXGRlZm Dqt9oov614sYOyg5ruVIVl DcI3gIPeJTWrpXIqM714BM LgWYwfy2nqx6WuFUYpnVLj o0P5ATQKxawtmNn6yHrnM9 2ez9T3GezpO5izKLEqSAtc YIDmIEdhoNJhJLT3ZWHrFF B9ZJpuqrUamxN6VEawfTRg JoJ3AQe1b0txsIhjOUNlMN P4c4rcZDejgcGgMX9fbr4j iEa1x8sbuiUsMOKwLMBonB BJNVIjP1HrsAfnLq1yxNw5 kXjrGmshYWZ7Uil0TZ5vhy 41yzk5kNkvDHCgiyceHsJ6 EEpfACPufjgvHKg1OBabRH JpyPWwBBPpgIJwW8ZxRWdf PI4ogzo5HxKwDL8vsdrpTX xpZOCjYOJ6HmLuXMDmp3Ee fqohWcUlbg3tnq52XOH9m7 WngCjeLEJ8JCT3PnNhKu0m zUBuACGtYK5kMoIdxZBuKR Txsf00eKdzUYslraNdyF1y TmLcJGGjcBXzHEFrXA7laS ViTUZfjX6dktamYAPxUjCy jmjoLJEetHpzdlJlYu4exB zsFAB6MTgeU8njyA7sFgX1 AAacZ4bfmS6uCZu2QQfivX H4HFZgpV2oUS4nmkrgj6qe MKZ7XNjuKBPkewH3plRcPG WrxEScQ4EikD78NnSdbVGi Y5PmtF1fECpiYSVrcvk4Er JhAz9umDCnrMA7KZuwMeaw YWdlXHBnbmNvbnRccGduZG VjXHBsYWluXHBsYWluXGYw VPYcQtFsjHnfkRiagS1eOl BcZnMyMFxwbGFpblxmMVxm czIwIFNwZWNpbWVuIEEgaX CknkRcGMf4SRZpMiJtf1gb kBDbZVnvGUG4nBZsDBEcaI ibeiQjfrQhZY8cCTFGECNv sC0gVFCtQZRveQN7qfWhKV MtkUyntHNwNS2wYYFscmQt z7CxKY3oSVPwlyTvBBKbrd iiFq6rMFpfvUYyMD1niwXq FEglNdEltlDaY6GtLPQxz1 7uyUQ0qZKspQQwGsGiJ63z bnRzICgxLjcgeCAxLjAgeC LxDoPyX64qDE1rPIEoZQS9 HOIdICF4ALHaTPOjvQolNJ NtYABwwGTmbN0bfxZgoeIe LAKjZZnxvOKgEMT1vY2zSA OilX7fjaI1UBOwHCMixlVc a53cF8Rqc9DwWEL4bDFvwH MiFUKgse9cRGyoFVLfEZAb wLKzXPizYXM1Ov6mbSYfOM BlbnRpcmVseSBpbiBBMSAo Afvtd0ZyaHBac9HyGCUiCn GqJ77mkcYmWSBsAAnbJWJr GJNbDfYkqMpbONVtTGm2Vg xwbGFpblxmMVxmczIwIEEy VJlaJBIgapIriJZxr2KkFG AaKfTiB79pzjJoGjzmFUNb qRDhSI5rm4T9MDytmvWeqW gqDRC8hDVACVN9zAKhssMf cZUqEQx7gWmyXJ5vQXeuNI 5vdTjvGWJzRIRJK5JsXZRm cn0= Embedded Images (test code = 8672840440) [facility] [id number] 13:27:50EXAM: XR CHEST 1 VW HISTORY: chest [...] since yesterday. ? [facility], Radiant Results Inft User - 2019 8:29 AM CDTEXAM: XR CHEST 1 VWHISTORY: chest tube COMPARISON: None.FINDINGS:The chest tubes draining the pleural space on the right are unchanged inposition. Similarly unchanged is the laterally loculated pleural effusionand the fluid obscuring the right hemidiaphragm and increasing the opacityofthe right lower lung. The right upper lung and the left lung are clear.The heart and great vessels are normal. The appearance of the chest islittle changed since yesterday.[facility]IR[facility] OR ABSCESS CULTURE(AEROBIC/ANAEROBIC)2019 13:27:00 Test Item Value Reference Range Interpretation Comments Aspirate or No aerobic/anaerobic Abscess Culture organisms isolated (test code = 23089-7) Gram stain (test Occasional (Rare) code = 664-3) Polymorphonuclear leukocytes [facility] (NA, K, CL, CO2, GLUCOSE, BUN, CREATININE, CA)2019 11:40:00 Test Item Value Reference Range Interpretation Comments NA (test code = 138 mmol/L 135-145 9226411603) K (test code = 3.4 mmol/L 3.5-5 L 4900611652) CL (test code = 107 mmol/L 98-108 2815525948) CO2 TOTAL (test code = 26 mmol/L 23-31 2946241466) AGAP (test code = 2-16 5231471064) BUN (test code = 23 mg/dL 7-23 2700694224) GLUCOSE (test code = 96 mg/dL 70-110 5501702071) CREATININE (test code = 1.01 mg/dL 0.5-1.04 8205381874) CALCIUM (test code = 8.6 mg/dL 8.6-10.6 2138160399) eGFR Calculation mL/min/1.73m2 (Non-) (test code = 1167636130) eGFR Calculation mL/min/1.73m2 () (test code = 6899714642) SADIE (test code = SADIE) Association of [...] tests). Lab Interpretation Abnormal (test code = 34557-8) [facility] WITH [id number] 11:18:00 Test Item Value Reference Range Interpretation [...] RDW-SD (test code = 47.0 fL 39-49.9 20984-4) RDW-CV (test code = 13.8 % 12-15.5 788-0) PLT (test code = See_Comment H [Automated 777-3) message] The sy stem which generated this result transmitted reference range : 166 - 358 10*3/ ?L. The reference r carlitos was not used to interpret this result as normal/abnormal . MPV (test code = 8.7 fL 9.5-12.9 L 92218-3) NRBC/100 WBC (test See_Comment [Automat ed code = 2995873654) message] The system which generated this result transmitted reference range : 0.0 - 10.0 /100 WBCs. The refer ence range was not u sed to interpret th is result as normal/abnormal . NRBC x10^3 (test code See_Comment [Auto mated = 3593156164) message] The s ystem which generated this result transmitted reference range : 10*3/?L. The reference range was not used to interpret this result as normal/abnormal . GRAN MAT (NEUT) % 70.9 % (test code = 770-8) IMM GRAN % (test code 7.30 % = 1993559703) LYMPH % (test code = 14.0 % 736-9) MONO % (test code = 5.9 % 5905-5) EOS % (test code = 1.6 % 713-8) BASO % (test code = 0.3 % 706-2) GRAN MAT x10^3(ANC) 8.22 10*3/uL 1.88-7.09 H (test code = 7937915013) IMM GRAN x10^3 (test 0.85 10*3/uL 0-0.06 H code = 5194274110) LYMPH x10^3 (test code 1.62 10*3/uL 1.32-3.29 = 731-0) MONO x10^3 (test code 0.68 10*3/uL 0.33-0.92 = 742-7) EOS x10^3 (test code = 0.19 10*3/uL 0.03-0.39 711-2) BASO x10^3 (test code 0.04 10*3/uL 0.01-0.07 = 704-7) Lab Interpretation Abnormal (test code = 50973-8) [facility]2019-10-30 18:39:00 Test Item Value Reference Range Interpretation Comments POCT GLU (test code = 8195201716) 90 mg/dL 70-110 Lab Interpretation (test code = Normal 25092-4) [facility] [id number] 13:53:38 Interval decrease in right-sided pleural effusion with improved aeration inthe right middle lobe. Preliminary Report Dictated by Resident: Paulo Dyson ?MD oTni., have reviewed this study and agree with theabove report.EXAM: XR CHEST 1 VW 10/30/2019 3:57 AM HISTORY: 63 years-old Female with history of right- sided pleural effusionwith pneumonia, evaluate for chest tube COMPARISON: 10/29/2019, 10/28/2019 TECHNIQUE: AP view of the chest. FINDINGS: Lines/tubes: Stable positioning of two leftlower chest tubes. Small interval decrease in right-sided pleural effusion with improvedaeration in the right middle lobe. There is no focal consolidation, orpneumothorax. The cardiomediastinal silhouet te is stable. ?No acute osseousabnormalities. [facility], Radiant Results Inft User - 10/30/2019 8:54 AM CDTEXAM: XR CHEST 1 VW 10/30/2019 3:57 AMHISTORY: 63 years-old Female with history of right-sided pleural effusionwith pneumonia, evaluate for chest tube COMPARISON: 10/29/2019, 10/28/2019TECHNIQUE: AP viewof the chest.FINDINGS:Lines/tubes: Stable positioning of two left lower chest tubes.Small interval decrease in right-sided pleural effusion with improvedaeration in the right middle lobe. There is no focal consolidation, orpneumothorax.The cardiomediastinal silhouette is stable. No acute osseousabnormalities.IMPRESSIONInterval decrease in right-sided pleural effusion with improved aeration inthe right middle lobe.Preliminary Report Dictated by Resident: Paulo Jones MD., have reviewed this study and agree with theabove report.[facility] 2019-10-30 13:34:00 Test Item Value Reference Range Interpretation Comments POCT GLU (test code = 117 mg/dL 70-110 H Notifi ed Provider [id number]) Lab Interpretation (test Abnormal code = 49269-7) [facility] WITH [id number] 07:32:00 Test Item Value Reference Range Interpretation Comments WBC (test code = See_Comment H [Automated 9090-2) message] The system which generated this result transmit mary kay reference range : 4.30 - 11.10 10*3/?L. The reference range was not used to interpret this result as normal/abnormal . RBC (test code = See_Comment L [Automated 869-8) message] The system which generated this result transmit mray kay reference range : 3.93 - 5.25 [...] RDW-SD (test code = 45.1 fL 39-49.9 02289-6) RDW-CV (test code = 13.7 % 12-15.5 788-0) PLT (test code = See_Comment H [Automated 777-3) message] The system which generated this result transmit mary kay reference range : 166 - 358 10*3/ ?L. The reference range was not u sed to interpret th is result as normal/abnormal . MPV (test code = 8.9 fL 9.5-12.9 L 45644-8) NRBC/100 WBC (test See_Comment [Automat ed code = 6847926171) message] The system which generated this result transmit mary kay reference range : 0.0 - 10.0 /100 WBCs. The reference range was not used to interpret this result as normal/abnormal . NRBC x10^3 (test code <0.01 See_Comment [Auto mated = 2961504677) message] The system which generated this result transmit mary kay reference range : 10*3/?L. The reference range was not used to interpret this result as normal/abnormal . GRAN MAT (NEUT) % 75.4 % (test code = 770-8) IMM GRAN % (test code 7.40 % = 2767811754) LYMPH % (test code = 11.7 % 736-9) MONO % (test code = 4.9 % 5905-5) EOS % (test code = 0.3 % 713-8) BASO % (test code = 0.3 % 706-2) GRAN MAT x10^3(ANC) 14.32 10*3/uL 1.88-7.09 H (test code = 0771489012) IMM GRAN x10^3 (test 1.41 10*3/uL 0-0.06 H code = 4317091663) LYMPH x10^3 (test code 2.23 10*3/uL 1.32-3.29 = 731-0) MONO x10^3 (test code 0.93 10*3/uL 0.33-0.92 H = 742-7) EOS x10^3 (test code = 0.05 10*3/uL 0.03-0.39 711-2) BASO x10^3 (test code 0.05 10*3/uL 0.01-0.07 = 704-7) TOXIC CHANGES (test Present A code = 803-7) Lab Interpretation Abnormal (test code = 94031-9) [facility] METABOLIC PANEL (NA, K, CL, CO2, GLUCOSE, BUN, CREATININE, CA)2019-10-30 07:30:00 Test Item Value Reference Range Interpretation Comments NA (test code = 136 mmol/L 135-145 1976177440) K (test code = 3.3 mmol/L 3.5-5 L 5207933611) CL (test code = 105 mmol/L 98-108 7896748144) CO2 TOTAL (test code = 28 mmol/L 23-31 2861311119) AGAP (test code = 2-16 2550797871) BUN (test code = 29 mg/dL 7-23 H 0569679296) GLUCOSE (test code = 103 mg/dL 70-110 6463491965) CREATININE (test code = 1.02 mg/dL 0.5-1.04 3599427166) CALCIUM (test code = 9.0 mg/dL 8.6-10.6 8875345958) eGFR Calculation mL/min/1.73m2 (Non-) (test code = 8883450584) eGFR Calculation mL/min/1.73m2 () (test code = 5723288193) SADIE (test code = SADIE) Association of [...] tests). Lab Interpretation Abnormal (test code = 91434-2) [facility] GLUCOSE (AUTOMATED)2019-10-30 02:06:00 Test Item Value Reference Range Interpretation Comments POCT GLU (test code = 9138590255) 177 mg/dL 70-110 H Lab Interpretation (test code = Abnormal 98973-9) [facility] GLUCOSE (AUTOMATED)2019-10-29 23:26:00 Test Item Value Reference Range Interpretation Comments POCT GLU (test code = 112 mg/dL 70-110 H Notifi ed Provider [id number]) Lab Interpretation (test Abnormal code = 53382-7) [id number] 22:18:00 Test Item Value Reference Range Interpretation Comments Case Report (test code Non-Gynecologic = 2041137836) Cytology ?Case: [id number] ?Authorizing Provider: ?Kendrick Eller MD ? ? ?Collected: ? 10/28/2019 1218 ?Ordering Location: ? ? [facility] OR ? Received: ?10/28/2019 1551 ? Department ? Pathologist: ? Lucia Liu MD ? Specimen: ? ?PLEURAL, RIGHT, EFFUSION ? Final Diagnosis (test k1ujxZAqPIGrh8acTCHwjN code = 0961126047) FuZzEwMzNcZnRuYmpcdWMx FAgzpgZfHTgsw7RlL9JxJh AwMFxhbnNpXGRlZmxhbmcx ILKqOLO9lzQcHHJsWUxaOC NqCTlgGg9tkDPhcYnlJzMl VNYuu2ivshULjelecEe7u0 epWWGkViO8zSHfXOjwO2fp hgLnuVXnLBQzACo1xF93PQ QeuU8zcTQkNArfltLbGNje tsJpjuYyNai7WZNtZ1mmHK FwDNOvX9MvXT7yJCPfOsi8 FZI3AWQ4iZhix7O3wGGrgY JpyKrhUnRdCjKsMSMAz9Qi YSs8dXzkS3IqUZHvLdF3mS QgUGFyYWdyYXBoIEZvbnQ7 xQ01UHzdmbL3lTApg0Eme0 9zk260zA5lsXObOGY0ITRr KZOqeUByHLEaGKC3SWPilK FeM1atDAtmKT1havahAOX9 MFxtYXJndDcyMFxtYXJnYj MliDNqAPVdrMceAGzhl328 FWJ5CgQuDT8jP8Cag2I7iY 9maXRcZGVmdGFiNzIwXGZv kc5qzONfNMbqf7TdKVP5qw S9uSGooBGiWXXdZK66Xmdm v2ZqNgypRNV0XMLiijAus8 Ski4rzYfDnudDmU5ygP0Ai ZHJoZWFkXHBnYnJkcmZvb3 Sue3KojOUagYy3o5ciPJHt LUBokFydu9ovEJQ9MKUlW5 E1uRMle2ptWUwpVYCuaIL9 fcJcVEWwvQRcI5AqwP5iCI kdLD9hvcx8d6mnWqFvDD3j empkf8neSIltITOsBOB1Uf WjZJTql9RdtwjcDkXms5Jl oFSuDLzrB81zn468MEUihr CgF3ztvVPjejeeeFLvwlpu MFxmczIwXHBhcmRccGxhaW 5cZjBcZnMyMFxwbGFpblxm MVxmczIwXGxhbmcxMDMzXG hjV4mkEqLbDHQtuIzrCQvh e6TkFBGfHXFyYWpncjQhEL TtGX5wIUKOJWARGVfwOfkQ NZR5CCIGB1PAU9MLHRIYMJ MgRkxVSURccGFyICAgICAg DA8cGEXXCOZzMN5ECSRYSZ CODR5NJSKDYuOGF13GSnRD DAhXQNKWEB3WJH3YCE1MPH JIH8SJJTjXRIKnoaPqRBBh GETqUS1SBB0UKOcPHpBYAU BDRUxMUyBJREVOVElGSUVE IFxwbGFpblxmMVxmczIwIC ksW8GXJKXYCI8VPjExTQKd sd13HMR0EeWyk0O5WAKpXo NaHIChQN4fnFlhWMMgTG7a AYGbX4jjtI0ktak9QgXbVB SyYeC9AXJailR5Coo6USKl TSmlh1tks6YcS3ZdrUTriG g4d0zrJILrEnV2dXXzMFhi D0vtkgXkaULnVHVhIXg4uP fmQhDoDFPpi6vrkdOtNwWe LCDrWFOeEWLeeIeljgn2bM 10MTLkeU8grRGsVXdtvwOd UxJ2CFqoQAEeKmN1IMUazF MuUDRdB7ikGTLwUDciGQUg VTckyPFbLNS5uLmib3E1zI VzaGVldHtcZjBcZnMyOCBO o9SzTOe0kTuhT5EhXSJqQy J6vVInLQEnEZrmAPMqEDYz axT5mR99BJcfmqI7bLLmu6 Qmc30pz576rZ8rzSBnGOQ4 RROlYLCpdVWvWGFsDBP1TM QreJExM9dgJECaCC1bwbdo RHszXPzuNGHdfDJ4TDMlcB ArR9KhVGMkLDgaOTTkuyw7 NjBkHl3leVUveSkiVLmbu8 gcy2xrhNOaEhb5VDSjYmLi HychRKege3Brd7lkOZYuii 2iHOQ9kPBpuGsmt1T9sJXe WZQytBQoqhXcFJFzFvK5LJ yeAS4uxi50XFWiJQW9am7o bGNccGdicmRyaGVhZFxwZ2 ObRXGdz611QMRmS7DcSRRo v9D5zuOjIaLfBCWecIW9zr D2ZBYqLFw2gRCnatB3dfFg dNOgJ4rqwB2uNKZpSG2ghd ypm4qkQQofFJdgXOZukVP2 czH3QXIrpQXuZ9YwiH0oPO UqZWkpDGBjsoz0ZrOvCq7k dGVyeTcyMFxzYmtwYWdlXH BnbmNvbnRccGduZGVjXHBs YWluXHBsYWluXGYwXGZzMj IxyDgynBmofS5kQkFrWcMv GItaMG8rGHVmX0uebXTcPP HdTYNfE1isOmYxbF6mnXej MVxjZjJcZnMyMFxwYXIgSS BoYXZlIHBlcnNvbmFsbHkg qyK1aTA1KSJqNFcbEZYmUR KgaDPwxw9ytZcpPFDmRK3s IGFncmVlIHdpdGggYWxsIH W6YHLyuKTquKUkqHNbMVAb eSByZXNpZGVudHMsIGZlbG mdl0Dzm4YztNO4yM0mr5ry i9MyFUZndKV5XI83sgF9zS 7fIKLuXV7bYDUfRK7yhILb lCFhDSKqq86fwJjjpbYwYK BvcnQuXHBsYWluXGYyXGZz MjhcbGFuZzEwMzNcaGljaF fkSnclSjUoZUAwMYmlH3xd CaTzIqBhSTeoCKB4sP== Final Diagnosis Comment c5wkdAYbANSbwEHaPpYxAQ (test code = KmORAzp7cqWHRorMZsIcTy [id number]) MzNcZnRuYmpcdWMxXGRlZm Cdy0jrb019iBLuf0eoJKIq JuC8sFSqHBKfiRPtL610II WuZRjiz6vos9BfEMNczFAc z0R3YXLHbrlkvXd0wDrvT0 0sj2C6LpzrP9pnKQIdFWJq Q4SyJC5zMDYrVwm0AMM8LM E0EOHwXXYtE6AyRH9qHTSn vKMeWCq7n8nuhVrsTMWxBS J2y4qpARqkbpRnCZ1dxe7f nJz1i1toxkYdMONsBGMxyG LCUQWkE8RnpHsuPy0elWs4 eQobOmwwMKP6Sme9VZ6lnq 46bom8lLhtDDXfghzdFiZ9 UApaRVTukjokYJo0DWwxOV SkuTKcNMZjfVOvS1XnRKxx NI8nntf7LfWbJJ7wrnmkUX qkDPRvTGM4YwOlQGQap6No gpadHzRgjy2iof66RGU0k5 DlmIffCFL4PIP5TcHqRk6k sWSiCCVbXN5fVcMmfCMlTH Srsu86qPukVTogldMuiE1f LbFjVAEwcHHmYPZgVB9puL PtOFHlzZ3rspauBZGcTlQf gqzyIJFkmEmbnzJoNm9siS vzIXB2FHqhT4cfmP1aNaK2 JHqoR4ppvM4fAGv2KEhciY J2JZUsyB0qIT5dgituf0hf XLU7XUvoHHFiigL9ecAyAP JuzIVjF6XeqT81UxAbzXNo O8OsrJ5tQYlxCQZdvbh6Sg GfRf5jcMGitXY2VRleUyqd YWdlXHBnbmNvbnRccGduZG VjXHBsYWluXHBsYWluXGYw CWMdUxUuyXnctSmziZ4kKq MmUiZmPTbhBF7lZOIhI1ww tNYoPLJoEUDhY9bpXrJsdH 9jaFxmMVxmczIwIFNtZWFy HMDdc1kfCXGgfC7pSV85LE 8tlMHjt3MpqOseQLYvk99j jWI9JB71GRtyuEhzIU9usD ScUU4fXf0rlMSdeJnoFO39 IGNlbGwgaWRlbnRpZmllZC 5ccGFyfQ== Clinical Information Pleural effusion [J90] (test code = 0699708255) Gross Description (test p2rczDFyYMLlrQAsRkNqJG code = 8337397023) AtSQTcw0ynLXEnoYAeMvTn MzNcZnRuYmpcdWMxXGRlZm Qua1dzn227hZFvh7keQRWq CsG4kLWgKJDkzDEfG629IG CuABzix2caf5CgAJKyjXPe f2W6VVCVyksjfVx5aNfoF3 5nc1F7RppiN4fxYBUoNPrq ZMJlEPvcrTBqMDP8NOFqSD O7JNauocIptvO8QDmnnCCc PgY3VXg5d5vtbVkzCMCgCJ O1l1hnMOxcwlQiOX6tke1c vZi7f3blqgMwYVKeGVUmhW TUVXUoP2HzxYydVq5geNs8 yYteMrdxIUM1Hho3EG4mjd 85xem1wQbfRYGfqrtgRdM6 XZizTLCidxbtBYj3WPtoMB NqmIQfYDFitGYuG5OjOSfo FU1zpft9PkDqUI8vynccMJ ciMIVbNLL7AoRgGAPdm6Rb zeguXuOujk3cku51XUK4x9 HgfBklBJF7EYB3QoRrNd5j uASrIPEbCH4gWyTacZVaEE Hcig80cBmcDRzevhSfyX2c EwNoYMNocJBvENHnSJ6uiL MxPOOraC0xvqbhHUGsXrQp besfZKBpaQdiojKrSo6afQ xpLAX3LVzhN2ldoF9tKcT6 SPqpE7wymT1wBVg2DEfriW L8WLJujP6fHP5qqvezs4as BLY3SVviGXNnwaL5gaSrJR DbjJUmM1HmjC30WxFspAZs L7UvpK0aZSaqZECplmv0Wz XhIb9shAKcfVS8GZkpQodx YWdlXHBnbmNvbnRccGduZG VjXHBsYWluXHBsYWluXGYw MPShIdCeyJihuSzxnU2qKu BcZnMyMFxwbGFpblxmMFxm czIwIEExLiAgUExFVVJBLC XXYSyKMQyjLUaZBwWVXT3R RVNJUyBGTFVJRFxwYXIgUm KpCWe6YFJeYrDjz9gcoIHl AHDrQheeMN5fOVXxkVPkLA JlZCBmbHVpZCBccGFyXHBh hiYcsHrwhL4lJfIoKrIzDO xwbGFpblxmMVxmczIwIFBy ZXBhcmVkIFxwbGFpblxmMV xmczIwXGxhbmcxMDMzXGhp W3ijGzCfTFNhyOzgMBrct1 NoXGYxXGNmMVxmczIwXGx0 nbOeAOQcdWewbY0kAcOuZs MyMCAgXHBsYWluXGYxXGZz MjBcbGFuZzEwMzNcaGljaF caEYvxFxUdJPDpGBmaA5ti DzJvM3OnSDWdPwVryKMvT1 pcy0pfCHBnMCqwrHPknxhc MVxmczIwIChTbWVhclxwbG FpblxmMVxmczIwXGxhbmcx FDByQDlzB0uaKuNuJARceN ngLZxuj4TyNVPeZOWjWMel frYuVPg6xlXpZZSvvvSoXN HsfCvvtlZ5BRAhDd7nAS1u g3UxdFNwugXdVCOLFGCzvd dkx4xev5Ndi0QofL3iCNnn rYebzF9gIoYeAjZkVMhkLS J9 Embedded Images (test code = 6835741917) [facility] GLUCOSE (AUTOMATED)2019-10-29 21:32:00 Test Item Value Reference Range Interpretation Comments POCT GLU (test code = 3035534847) 162 mg/dL 70-110 H Lab Interpretation (test code = Abnormal 15622-0) [facility] GLUCOSE (AUTOMATED)2019-10-29 21:32:00 Test Item Value Reference Range Interpretation Comments POCT GLU (test code = 4589320310) 119 mg/dL 70-110 H Lab Interpretation (test code = Abnormal 69005-8) [facility] GLUCOSE (AUTOMATED)2019-10-29 21:32:00 Test Item Value Reference Range Interpretation Comments POCT GLU (test code = 0072130976) 136 mg/dL 70-110 H Lab Interpretation (test code = Abnormal 77123-6) [facility] GLUCOSE (AUTOMATED)2019-10-29 21:32:00 Test Item Value Reference Range Interpretation Comments POCT GLU (test code = 9448801133) 133 mg/dL 70-110 H Lab Interpretation (test code = Abnormal 92644-6) [facility] GLUCOSE (AUTOMATED)2019-10-29 18:46:00 Test Item Value Reference Range Interpretation Comments POCT GLU (test code = 3810532350) 203 mg/dL 70-110 H Lab Interpretation (test code = Abnormal 61719-1) [facility] [id number] 16:27:00 Test Item Value Reference Range Interpretation Comments SPUTUM CULTURE 1+ Respiratory monster: (test code = 622-1) Commensal upper respiratory microorganisms only. Gram stain (test Occasional (Rare) code = 664-3) Epithelial cells SADIE (test code = Bacterial pathogens SADIE) associated with lower respiratory infections were not identified, which include Pseudomonas aeruginosa and Staphylococcus aureus (MRSA or MSSA). [facility] GLUCOSE (AUTOMATED)2019-10-29 15:09:00 Test Item Value Reference Range Interpretation Comments POCT GLU (test code = 4774486055) 159 mg/dL 70-110 H Lab Interpretation (test code = Abnormal 71800-6) [facility]W - POD #[id number] 14:13:17EXAM: XR CHEST 1 VW HISTORY: indwelling chest tube COMPARISON: None. FINDINGS: Two chest tubes drainthe pleural space on the right, but the [...] andthe heart and great vessels are borderline normal.[facility] HospitalBLOOD CULTURE [id number] 13:50:00 Test Item Value Reference Range Interpretation Comments Blood Culture-Aerobic Culture positive. No growth AA P revious (test code = 73425-5) See Blood Culture p reliminary Workup for verified result additional was Culture In information. Progress on 10/26/2019 at 12 01 CDTPrevious preliminary verified result was No growth a t 24 hours on 10/27/2019 at 09 01 CDT Blood Culture positive. No growth AA Previous Culture-Anaerobic See Blood Culture preli minary (test code = 76936-9) Workup for verifi ed result additional was Culture In information. Progress on 10/26/2019 at 12 01 CDTPrevious preliminary verified result was No growth a t 24 hours on 10/27/2019 at 09 52 CDT Lab Interpretation Abnormal (test code = 31844-8) [facility] With [id number] 13:11:00 Test Item Value Reference Range Interpretation [...] RDW-SD (test code = 45.3 fL 39-49.9 09638-0) RDW-CV (test code = 13.8 % 12-15.5 788-0) PLT (test code = See_Comment H [Automated 777-3) message] The system which generated this result transmitted reference range : 166 - 358 10*3/?L. The reference range was not used to interpret this result as normal/abnormal . MPV (test code = 9.1 fL 9.5-12.9 L 97404-9) NRBC/100 WBC (test See_Comment [Automat ed code = 8205649567) message] The system which generated this result transmitted reference range : 0.0 - 10.0 /100 WBCs. The reference range was not used to interpret this result as normal/abnormal . NRBC x10^3 (test code <0.01 See_Comment [Auto mated = 1181210411) message] The system which generated this result transmitted reference range : 10*3/?L. The reference range was not used to interpret this result as normal/abnormal . GRAN MAT (NEUT) % 82.7 % (test code = 770-8) IMM GRAN % (test code 6.70 % = 1843828911) LYMPH % (test code = 5.5 % 736-9) MONO % (test code = 4.7 % 5905-5) EOS % (test code = 0.0 % 713-8) BASO % (test code = 0.4 % 706-2) GRAN MAT x10^3(ANC) 20.14 10*3/uL 1.88-7.09 H (test code = 5343664854) IMM GRAN x10^3 (test 1.64 10*3/uL 0-0.06 H code = 8558431572) LYMPH x10^3 (test 1.34 10*3/uL 1.32-3.29 code = 731-0) MONO x10^3 (test code 1.14 10*3/uL 0.33-0.92 H = 742-7) EOS x10^3 (test code <0.03 0.03-0.39 L = 711-2) BASO x10^3 (test code 0.10 10*3/uL 0.01-0.07 H = 704-7) BANDS (test code = MARKED INCREASED A 5514512126) Lab Interpretation Abnormal (test code = 41968-1) [facility] Metabolic Panel (NA, K, CL, CO2, GLUCOSE, BUN, CREATININE, CA)2019-10-29 12:37:00 Test Item Value Reference Range Interpretation Comments NA (test code = 134 mmol/L 135-145 L 0498829099) K (test code = 4.1 mmol/L 3.5-5 4964935481) CL (test code = 103 mmol/L 98-108 2278690503) CO2 TOTAL (test code = 24 mmol/L 23-31 7372268753) AGAP (test code = 2-16 8169504697) BUN (test code = 26 mg/dL 7-23 H 1816461132) GLUCOSE (test code = 150 mg/dL 70-110 H 0937080554) CREATININE (test code = 0.95 mg/dL 0.5-1.04 5700691888) CALCIUM (test code = 8.6 mg/dL 8.6-10.6 2072952710) eGFR Calculation mL/min/1.73m2 (Non-) (test code = 8121588231) eGFR Calculation mL/min/1.73m2 () (test code = 9076565486) SADIE (test code = SADIE) Association of [...] tests). Lab Interpretation Abnormal (test code = 52628-0) [facility] GLUCOSE (AUTOMATED)2019-10-29 06:09:00 Test Item Value Reference Range Interpretation Comments POCT GLU (test code = 1990991919) 255 mg/dL 70-110 H Lab Interpretation (test code = Abnormal 32102-1) [facility] GLUCOSE (AUTOMATED)2019-10-29 03:31:00 Test Item Value Reference Range Interpretation Comments POCT GLU (test code = 4148882773) 327 mg/dL 70-110 H Lab Interpretation (test code = Abnormal 35069-1) [facility] GLUCOSE (AUTOMATED)2019-10-29 02:23:00 Test Item Value Reference Range Interpretation Comments POCT GLU (test code = 2396835038) 317 mg/dL 70-110 H Lab Interpretation (test code = Abnormal 68813-6) [facility] With [id number] 21:59:00 Test Item Value Reference Range Interpretation [...] RDW-SD (test code = 43.7 fL 39-49.9 64396-2) RDW-CV (test code = 13.2 % 12-15.5 788-0) PLT (test code = See_Comment H [Automated 777-3) message] The system which generated this result transmit mary kay reference range : 166 - 358 10*3/ ?L. The reference range was not u sed to interpret th is result as normal/abnormal . MPV (test code = 8.8 fL 9.5-12.9 L 53934-8) NRBC/100 WBC (test See_Comment [Automat ed code = 9133865947) message] The system which generated this result transmit mary kay reference range : 0.0 - 10.0 /100 WBCs. The reference range was not used to interpret this result as normal/abnormal . NRBC x10^3 (test code <0.01 See_Comment [Auto mated = 4787688714) message] The system which generated this result transmit mary kay reference range : 10*3/?L. The reference range was not used to interpret this result as normal/abnormal . GRAN MAT (NEUT) % 84.0 % (test code = 770-8) IMM GRAN % (test code 6.70 % = 9994461547) LYMPH % (test code = 5.0 % 736-9) MONO % (test code = 3.5 % 5905-5) EOS % (test code = 0.3 % 713-8) BASO % (test code = 0.5 % 706-2) GRAN MAT x10^3(ANC) 14.52 10*3/uL 1.88-7.09 H (test code = 1033486033) IMM GRAN x10^3 (test 1.16 10*3/uL 0-0.06 H code = 6389197616) LYMPH x10^3 (test code 0.86 10*3/uL 1.32-3.29 L = 731-0) MONO x10^3 (test code 0.61 10*3/uL 0.33-0.92 = 742-7) EOS x10^3 (test code = 0.05 10*3/uL 0.03-0.39 711-2) BASO x10^3 (test code 0.08 10*3/uL 0.01-0.07 H = 704-7) MARKY CELLS (test code 2+ See_Comment A [Auto mated = 7590-9) message] The system which generated this result transmit mary kay reference range : (none). The reference range was not used to interpret this result as normal/abnormal . BANDS (test code = Increased A 9103280531) TOXIC CHANGES (test Present A code = 803-7) Lab Interpretation Abnormal (test code = 09621-4) [facility]2019-10-28 21:58:00 Test Item Value Reference Range Interpretation Comments POCT GLU (test code = 142 mg/dL 70-110 H Notifi ed Provider [id number]) Lab Interpretation (test Abnormal code = 56156-6) [facility] 1 [facility]W - POD #0 in [id number] 21:43:05 Interval placement of a surgical chest tube in the right lung withincreased lung aeration and decreased loculated right pleural fluid. Preliminary Report Dictated by Resident: Magda Lerma MD., have reviewed this study and [...] which improved aeration of the right lung. Residual peripheral hazy opacities noted, corresponds with loculated pleuraleffusion noted on prior CT dated 10/26/2019. Airspace opacities noted in theright lung base are persistent. No pneumothorax is identified. The cardiomediastinal silhouette is normal in size. No acute osseous abnormality is present.IMPRES SIONInterval placement of a surgical chest tube in the right lung withincreased lung aeration and decreased loculated right pleural fluid.Preliminary Report Dictated by Resident: Poppy Durand, Magda Silver MD., have reviewed this study and agree with theabove report.[facility] HospitalErector Spinae Plane Block - [id number] 19:55:08Ry Barakat MD ? ? 10/28/2019 ?2:56 PM Nerve Block Laterality: RightStart Time: 10/28/2019 2:45 PMEnd Time: 10/28/2019 2:55 PMPost Op Pain Management requested by surgeon per surgical: ProgressNoteOther Anesthesia Staff: Ry Barakat MDAnesthesiologist: Derrick Andres MDPerformed by: other anesthesia staffPreanesthetic timeout completed prior to procedure: patient identified,IV checked, site marked, risks and benefits discussed, surgical consent, monitors and equipment checked, pre-op evaluation, timeout performedInformed consent obtained patient wishes to proceed: yesPatient Position: right lateral decubitusSterile Prep/Drape: YesMonitoring: continuous pulse ox, blood pressure and ECGInjection Technique: single-shotNeedle Type: StimuplexNeedle Gauge: 21 GNeedle Length: 4.0Number of Attempts: 1Technique: Ultrasound guidedEvents: Negative Aspiration, Local anesthetic solution visualized around nerve and No symptoms of intraneural or IV injection Medications Given: Regional:Bupiv 0.25% 20 mL [facility] Packed RBC (in units), 2 Units 2019-10-28 19:50:49 Test Item Value Reference Range Interpretation Comments Cross Match Result Compatible (test code = 4409) ISBT Blood Type Code (test code = 224866) Unit Blood Type (test O Pos code = 4410) Unit Number (test [id number] code = 4411) Blood Expiration Date & Time (test code = 179064) Status Information Issued (test code = 4412) Product Red Blood Cells Identification (test code = 4413) Product Code (test [id number] Performed at [facility] code = 4414) Laboratory Services - [facility] Blood [address] [place], [place] [address]Nasra pack [address]Kcmq Free: [phone] A No. [id number] [facility] HospitalIntubation2020-08-17 18:03:32Mili Perry MD ? ? 10/28/2019 ?1:08 PMIntubationDate/Time: 10/28/2019 11:40 AMUrgency: elective Airway not difficult General Information and Staff Patient location during procedure: ORAnesthesiologist: Derrick Andres MDResident/DELIVERY REP: Mili Perry MDOther anesthesia staff: Roshni, Jennifer, MDPerformed: resident/DELIVERY REP Indications and Patient ConditionIndications for airway management: anesthesia and airway protectionSpontaneous Ventilation: absentSedation level: deepPreoxygenated: yesPatient position: sniffingMask difficulty assessment: 2 - vent by mask + OA or adjuvant +/- NMBAPlanned trial extubation Final Airway DetailsFinal airway type: endotracheal airway Successful airway: ETT - double lumen leftCuffed: yes Successful intubation technique: flexible bronchoscopyFacilitating devices/methods: intubating stylet and cricoid pressureEndotracheal tube insertion site: oralBlade: MacintoshBlade size: #3ETT DL size (fr): 35Placement verified by: bronchoscopy and capnometry Number of attempts at approach: 1 Additional CommentsInitial DL x1 with Mac3, G1v. Placed SHAQUILLE thru cords, advanced it, inflated tracheal cuff, connected to vent, confirmed EtCO2. After getting fiberoptic scope ready, deflated cuff, then used fiberoptic scope to place bronchial cuff in left main bronchus, then inflated both cuffs. Isolated with clamp.[facility] HospitalType and Screen - ONCE [id number] 17:00:52 Test Item Value Reference Range Interpretation Comments ABO & RH (test code O POSITIVE Performe d at [facility] = 20) Laboratory Serv ices - [facility] Blood Bank3 [address] [facility] [address]Mhey Free: [phone] A No. [id number] IAT (test code = Negative Performed a t [facility] 1185) Laboratory [facility] Blood Bank3 [facility] [address]Iudh Free: [phone] A No. [id number] [facility] HospitalArterial [id number] 16:20:30Mili Perry MD ? ? 10/28/2019 ?1:03 PM Arterial Line Date/Time: 10/28/2019 11:12 AMPerformed by: Ry Barakat MD Arterial Line Placement: ?Ultrasound- Guided: ultrasound guided ? ?Patient Location: ?Pre-op ?Indication: continuous blood pressure monitoring and blood sampling needed ?Staff: ?Supervising Anesthesiologist: ?Derrick Andres MD ?Resident: ?Brandin Wood MD ?Other: ?Mili Perry, MDProcedure Detail: ?Catheter Size: ?20 gauge ?Catheter Length: ?1 and 3/4 inch ?Catheter Type: ?Arrow ?Seldinger Technique?: Yes ? ?Laterality: ?Right ?Site: ?Radial artery?Line Secured: ?Tegaderm and tape ?Preparation: ?Biopatch applied and guidewire removed intactEvents: ?Events: ?Patient tolerated procedure well with no complications and all wires accounted for [facility] HospitalCT THORAX WO [id number] 15:21:53 Worsening of the right loculated pleural effusion. Density of the fluidhigher than simple fluid suggest possible empyema. Patchy opacity in theright middle lobe suggestive of underlying pneumonia. PROCEDURE: CT CHEST NON CONTRAST - CHEST PROTOCOL CLINICAL INDICATION: Pleural effusion ? COMPARISON: ?None. TECHNIQUE: ?Helical CT was performed of the chest (lung apices tobases). Images were reconstructed at 1.25 mm slice [...] nodes. Mediastinum: Unremarkable. Thoracic spine and chest wall: Unremarkable, with normal thoracic vertebralbody heights. Other Lines/Tubes/Devices/Hardware: None Visualized upper abdomen: Unremarkable within the limits of a nonintravenous contrast enhanced examinati on. [facility], Radiant Results Inft User - 10/28/2019 10:22 AM CDTPROCEDURE: CT CHEST NON CONTRAST - CHEST PROTOCOLCLINICAL INDICATION: Pleural effusion COMPARISON: None.TECHNIQUE: Helical CT was performed of the chest (lung apices to bases). Images were reconstructed at 1.25 mm slice thickness. MIP and coronal &sagittal MPR images were generated and reviewed. (DFOV = cm)FINDINGS:Lower neck/thyroid: Unremarkable.Lungs: The loculated pleural effusion [...] effusion..Thoracic aorta and great vessels: Normal in diameter.Pulmonary arteries: Unremarkable.Heart and pericardium: Multivessel coronary arterial [...] theright middle lobe suggestive of underlying pneumonia. [facility] HospitalXR CHEST 1 [id number] 13:14:47EXAM: XR CHEST 1 VW HISTORY: empyema COMPARISON: None. FINDINGS: The amount of fluid in the pleural space on the right is unchanged orperhaps slightly increased. The right upper lung and the left lung areclear and the heart and great vessels are normal. ? [facility], Radiant Results Inft User - 10/28/2019 8:15 AM CDTEXAM: XR CHEST 1 VWHISTORY: empyema COMPARISON: None.FINDINGS:The amount of fluid in the pleural space on the right is unchanged orperhaps slightly increased. The right upper lung and the leftlung areclear and the heart and great vessels are normal.[facility] HospitalPOCT GLUCOSE (AUTOMATED)2019-10-28 12:56:00 Test Item Value Reference Range Interpretation Comments POCT GLU (test code = 116 mg/dL 70-110 H Notifi ed Provider [id number]) Lab Interpretation (test Abnormal code = 85638-3) [facility] HospitalCOVID-19 (ID NOW RAPID TESTING)2019-10-28 03:19:00 Test Item Value Reference Range Interpretation Comments SARS-CoV-2 Rapid ID NOW Not Detected Not Detected (test code = 42231-8) SADIE (test code = SADIE) ID NOW COVID-19 Assay is an isothermal nucleic acid amplification test intended for the qualitative detection of nucleic acid from SARS-CoV-2 viral RNA in nasopharyngeal (SEAT SCOOPER MACHINE) specimens. It is used under Emergency Use [...] indicated. Lab Interpretation Normal (test code = 50489-0) [facility] HospitalPNEUMOCOCCAL [id number] 01:30:00 Test Item Value Reference Range Interpretation Comments S. pneumoniae antigen (test code = Negative Negative 2720287460) Lab Interpretation (test code = Normal 13415-9) [facility] HospitalPO[facility] GLU[facility]SE (AUTOMATED)2019-10-28 00:27:00 Test Item Value Reference Range Interpretation Comments POCT GLU (test code = 6412829568) 166 mg/dL 70-110 H Lab Interpretation (test code = Abnormal 60679-0) [facility] HospitalGRAM POSITIVE BLOOD PATHOGENS DNA [id number] 23:46:00 Test Item Value Reference Range Interpretation Comments Coagulase Negative Positive Negative A Staphylococcus (test code = 82827-0) SADIE (test code = SADIE) Coagulase negative [...] contact the Antimicrobial Stewardship Program with questions.Pager: ?[phone] Testing included eleven identification and three resistance marker targets. Lab Interpretation Abnormal (test code = 74909-2) [facility] GLUCOSE (AUTOMATED)2019-10-27 23:34:00 Test Item Value Reference Range Interpretation Comments POCT GLU (test code = 7373114471) 116 mg/dL 70-110 H Lab Interpretation (test code = Abnormal 50745-4) [facility] GLUCOSE (AUTOMATED)2019-10-27 18:27:00 Test Item Value Reference Range Interpretation Comments POCT GLU (test code = 4933977653) 167 mg/dL 70-110 H Lab Interpretation (test code = Abnormal 14332-4) [facility] HospitalMRSA / MSSA SCREEN BY PCR, [id number] 15:58:00 Test Item Value Reference Range Interpretation Comments MSSA Screen by PCRAddie (test code Negative Negative = 98622-9) MRSA/MSSA Positive? (test code = No No [id number]) Lab Interpretation (test code = Normal 90306-6) [facility] WITH [id number] 14:03:00 Test Item Value Reference Range Interpretation Comments WBC (test code = See_Comment H [Automated 7690-2) message] The system which generated this result transmitted reference range : 4.30 - 11.10 10*3/?L. The reference range was not used to interpret this result as normal/abnormal . RBC (test code = See_Comment L [Automated 569-8) message] The system which generated this result [...] RDW-SD (test code = 42.0 fL 39-49.9 25952-3) RDW-CV (test code = 12.4 % 12-15.5 788-0) PLT (test code = See_Comment H [Automated 777-3) message] The system which generated this result transmitted reference range : 166 - 358 10*3/?L. The reference range was not used to interpret this result as normal/abnormal . MPV (test code = 9.1 fL 9.5-12.9 L 44799-9) NRBC/100 WBC (test See_Comment [Automat ed code = 6396296392) message] The system which generated this result transmitted reference range : 0.0 - 10.0 /100 WBCs. The reference range was not used to interpret this result as normal/abnormal . NRBC x10^3 (test code <0.01 See_Comment [Auto mated = 5681599770) message] The system which generated this result transmitted reference range : 10*3/?L. The reference range was not used to interpret this result as normal/abnormal . GRAN MAT (NEUT) % 73.8 % (test code = 770-8) IMM GRAN % (test code 6.00 % = 4486368153) LYMPH % (test code = 7.8 % 736-9) MONO % (test code = 11.4 % 5905-5) EOS % (test code = 0.5 % 713-8) BASO % (test code = 0.5 % 706-2) GRAN MAT x10^3(ANC) 11.29 10*3/uL 1.88-7.09 H (test code = 6833726396) IMM GRAN x10^3 (test 0.92 10*3/uL 0-0.06 H code = 6808620360) LYMPH x10^3 (test 1.20 10*3/uL 1.32-3.29 L code = 731-0) MONO x10^3 (test code 1.74 10*3/uL 0.33-0.92 H = 742-7) EOS x10^3 (test code 0.08 10*3/uL 0.03-0.39 = 711-2) BASO x10^3 (test code 0.07 10*3/uL 0.01-0.07 = 704-7) POLYCHROMASIA (test 2+ See_Comment [Automa mary kay code = 14115-5) message] The system which generated this result transmitted reference range : 2+. The referen ce range was not used to interpr et this result as normal/abnormal . BANDS (test code = MARKED INCREASED A 5804957428) TOXIC CHANGES (test Present A code = 803-7) Lab Interpretation Abnormal (test code = 44290-8) [facility] METABOLIC PANEL (NA, K, CL, CO2, GLUCOSE, BUN, CREATININE, CA)2019-10-27 10:41:00 Test Item Value Reference Range Interpretation Comments NA (test code = 135 mmol/L 135-145 [id number]) K (test code = 3.6 mmol/L 3.5-5 [id number]) CL (test code = 103 mmol/L 98-108 2482603428) CO2 TOTAL (test code = 24 mmol/L 23-31 [id number]) AGAP (test code = 2-16 4074699227) BUN (test code = 25 mg/dL 7-23 H [id number]) GLUCOSE (test code = 118 mg/dL 70-110 H [id number]) CREATININE (test code = 1.12 mg/dL 0.5-1.04 H [id number]) CALCIUM (test code = 8.3 mg/dL 8.6-10.6 L [id number]) eGFR Calculation mL/min/1.73m2 (Non-) (test code = 2297270217) eGFR Calculation mL/min/1.73m2 () (test code = 7558077721) SADIE (test code = SADIE) Association of [...] tests). Lab Interpretation Abnormal (test code = 96160-8) [facility]2019-10-27 04:19:00 Test Item Value Reference Range Interpretation Comments POCT GLU (test code = 1621786523) 131 mg/dL 70-110 H Lab Interpretation (test code = Abnormal 45028-2) [facility] HospitalGLYCOSYLATED HEMOGLOBIN (A1C)2019-10-27 00:04:00 Test Item Value Reference Range Interpretation Comments HGB A1C (test code = 5.7 % 4-6 4548-4) SADIE (test code = SADIE) %A1C (NGSP) Interpretation (ADA)4.8-5.6 ? ? Normal or (Non-Diabetic Range)5.7-6.4 ? ? Increased Risk (Pre-Diabetic)>6.5 ?Diabetes Indicated Lab Interpretation Normal (test code = 73063-3) [facility] HospitalC-REACTIVE [id number] 16:52:00 Test Item Value Reference Range Interpretation Comments CRP (test code = 7798711692) 29.2 mg/dL <0.8 H Lab Interpretation (test code = Abnormal 37342-3) [facility] (NA, K, CL, CO2, GLUCOSE, BUN, CREATININE, CA)2019-10-26 11:48:00 Test Item Value Reference Range Interpretation Comments NA (test code = 132 mmol/L 135-145 L 3590890702) K (test code = 4.1 mmol/L 3.5-5 7601530697) CL (test code = 104 mmol/L 98-108 4665928482) CO2 TOTAL (test code = 22 mmol/L 23-31 L 5745849879) AGAP (test code = 2-16 9397564678) BUN (test code = 34 mg/dL 7-23 H 2235646791) GLUCOSE (test code = 105 mg/dL 70-110 7430108913) CREATININE (test code = 1.32 mg/dL 0.5-1.04 H 4380826174) CALCIUM (test code = 8.4 mg/dL 8.6-10.6 L 4444537617) eGFR Calculation mL/min/1.73m2 (Non-) (test code = 3028436092) eGFR Calculation mL/min/1.73m2 () (test code = 3273246664) SADIE (test code = SADIE) Association of [...] tests). Lab Interpretation Abnormal (test code = 13830-3) [facility] HospitalPROCALCITONIN2020-08-15 11:45:00 Test Item Value Reference Range Interpretation Comments Procalcitonin (test 8.37 ng/mL <0.07 H code = 9802780184) SADIE (test code = SADIE) INTERPRETATION OF [...] lung abscess/empyema. For further information please refer to:[email or web address] Lab Interpretation Abnormal (test code = 71344-7) [facility] WITH [id number] 09:40:00 Test Item Value Reference Range Interpretation Comments WBC (test code = See_Comment H [Automated 3504-2) message] The system which generated this result transmit mary kay reference range : 4.30 - 11.10 10*3/?L. The reference range was not used to interpret this result as normal/abnormal . RBC (test code = See_Comment L [Automated 519-8) message] The system which generated this result [...] RDW-SD (test code = 40.1 fL 39-49.9 91683-1) RDW-CV (test code = 12.0 % 12-15.5 788-0) PLT (test code = See_Comment H [Automated 777-3) message] The system which generated this result transmit mary kay reference range : 166 - 358 10*3/ ?L. The reference range was not u sed to interpret th is result as normal/abnormal . MPV (test code = 9.1 fL 9.5-12.9 L 03148-9) NRBC/100 WBC (test See_Comment [Automat ed code = 1023295418) message] The system which generated this result transmit mary kay reference range : 0.0 - 10.0 /100 WBCs. The reference range was not used to interpret this result as normal/abnormal . NRBC x10^3 (test code <0.01 See_Comment [Auto mated = 2488175902) message] The system which generated this result transmit mary kay reference range : 10*3/?L. The reference range was not used to interpret this result as normal/abnormal . GRAN MAT (NEUT) % 73.9 % (test code = 770-8) IMM GRAN % (test code 4.10 % = 8354997777) LYMPH % (test code = 11.2 % 736-9) MONO % (test code = 10.0 % 5905-5) EOS % (test code = 0.5 % 713-8) BASO % (test code = 0.3 % 706-2) GRAN MAT x10^3(ANC) 11.41 10*3/uL 1.88-7.09 H (test code = 4644824089) IMM GRAN x10^3 (test 0.63 10*3/uL 0-0.06 H code = 8613361424) LYMPH x10^3 (test code 1.73 10*3/uL 1.32-3.29 = 731-0) MONO x10^3 (test code 1.55 10*3/uL 0.33-0.92 H = 742-7) EOS x10^3 (test code = 0.08 10*3/uL 0.03-0.39 711-2) BASO x10^3 (test code 0.05 10*3/uL 0.01-0.07 = 704-7) Lab Interpretation Abnormal (test code = 83264-9) [facility] HospitalCT LUMBAR SPINE WO [id number] 05:58:44 No acute fracture or traumatic malalignment [...] . ? COMPARISON: None. FINDINGS: For the purposesof this dictation, the last well-defined interspace iscalled [...] S1 with associated moderate rightgreater than left facet arthropathy. [...] axial images were obtained of thelumbar spine. [place] coronal reformatted images were generated.Images were reviewed in soft-tissue and bone detail. .COMPARISON: None.FINDINGS: For the purposes of this dictation, the last well-defined interspace iscalled L5-S1.There is mild loss of the normal lumbar lordosis. There is levocurvature of the lumbar spine. Lumbar vertebral body heights are maintained. There is L2-L3 disc degeneration with L2 vertebral body inferior endplateSchmorl's node and L2-L3 disc bulge.There is mild L4-L5 facet arthropathy.Thereis grade 1 anterolisthesis of L5 on S1 with associated moderate rightgreater than left facet arthropathy. There is disc vacuum phenomenon atL5- S1 on the left. No acute fracture or [...] bulge and L2 vertebral body inferior endplate Schmorl'snode.[facility] HospitalSEDIMENTATION [id number] 04:54:00 Test Item Value Reference Range Interpretation Comments ESR (test code = >120 See_Comment H [Automated message] 8793195970) The system [employer] generated this result transmitted ref erence range: 0 - 20 m m/HR. The reference r carlitos was not used to interpret this result as normal/abnor mal. Lab Interpretation (test Abnormal code = 59764-1) [facility] HospitalURINALYSIS2020-08-14 18:54:00 Test Item Value Reference Range Interpretation Comments APPEARANCE (test code = Hazy Clear A 9601555309) COLOR (test code = Teresita Yellow A 2425282735) PH (test code = 4.8-8.0 5498537823) SP GRAVITY (test code = 1.003-1.030 9613134985) GLU U QUAL (test code = Normal Normal 5142638685) BLOOD (test code = 3+ Negative A 4278237648) KETONES (test code = Negative Negative 6176836631) PROTEIN (test code = Negative Negative 2887-8) UROBILIN (test code = 4.0 mg/dL Normal A 3266703741) BILIRUBIN (test code = Negative Negative 2086782091) NITRITE (test code = Negative Negative 7927356358) LEUK ALYSHA (test code = Negative Negative 2260967871) RBC/HPF (test code = >182 See_Comment H [Autom ated message] 1339877417) The system [employer] generated this result transmit mary kay reference range : 0 - 3 HPF. The refe rence range was not u sed to interpret th is result as normal/abnormal . WBC/HPF (test code = See_Comment H [Autom ated message] 8343751255) The system [employer] generated this result transmit mary kay reference range : 0 - 5 HPF. The refe rence range was not u sed to interpret th is result as normal/abnormal . BACTERIA (test code = Negative Negative 4156428001) MUCOUS (test code = Slight Negative LPF A 6759899668) SQ EPITH (test code = HPF 6457613825) HYAL CAST (test code = See_Comment [Aut omated message] 5301491151) The system [employer] generated this result transmit mary kay reference range : <=2 LPF. The refere nce range was not u sed to interpret th is result as normal/abnormal . Lab Interpretation (test Abnormal code = 51059-2) [facility] HospitalCREATININE, URINE [id number] 18:42:00 Test Item Value Reference Range Interpretation Comments CREAT U (test code = 4035070513) 106.0 mg/dL [facility] HospitalPROTEIN CREAT RATIO URINE [id number] 18:39:00 Test Item Value Reference Range Interpretation Comments T. PROT U (test code = 2888-6) 21 mg/dL CREAT U (test code = 6011146924) 106.4 mg/dL Protein/Creatinine Ratio Urine 0.0-2.0 (test code = 1016493282) [facility] HospitalSODIUM, URINE [id number] 18:37:00 Test Item Value Reference Range Interpretation Comments NA URINE (test code = 0848210742) 7 mmol/L [facility] HospitalXR CHEST 1 [id number] 16:31:45EXAM: XR CHEST 1 VW HISTORY: chest pain COMPARISON: None. FINDINGS: A large dense mass-like opacity in the right lower lung may be a collectionof loculated pleural fluid, consolidated lung, or a neoplasm. The rightupper lung and the left lung are clear. The heart is upper limit of normalin size. CT isrecommended for further evaluation. ? [facility], Radiant Results Inft User - 10/25/2019 11:32 AM CDTEXAM:XR CHEST 1 VWHISTORY: chest pain COMPARISON: None.FINDINGS:A large dense mass-like opacity in the right lower lung may be a collectionof loculated pleural fluid, consolidated lung, or a neoplasm. The rightupper lung and the left lung are clear. The heart is upper limit of normalin size.CT is recommended for further evaluation.[facility] WITH [id number] 13:48:00 Test Item Value Reference Range Interpretation [...] RDW-SD (test code = 39.0 fL 39-49.9 92017-0) RDW-CV (test code = 12.0 % 12-15.5 788-0) PLT (test code = See_Comment H [Automated 777-3) message] The system which generated this result transmitted reference range : 166 - 358 10*3/?L. The reference range was not used to interpret this result as normal/abnormal . MPV (test code = 9.1 fL 9.5-12.9 L 25068-9) NRBC/100 WBC (test See_Comment [Automat ed code = 6192310756) message] The system which generated this result transmitted reference range : 0.0 - 10.0 /100 WBCs. The reference range was not used to interpret this result as normal/abnormal . NRBC x10^3 (test code <0.01 See_Comment [Auto mated = 5890818959) message] The system which generated this result transmitted reference range : 10*3/?L. The reference range was not used to interpret this result as normal/abnormal . GRAN MAT (NEUT) % 77.5 % (test code = 770-8) IMM GRAN % (test code 2.70 % = 5632853614) LYMPH % (test code = 8.0 % 736-9) MONO % (test code = 10.2 % 5905-5) EOS % (test code = 1.3 % 713-8) BASO % (test code = 0.3 % 706-2) GRAN MAT x10^3(ANC) 11.00 10*3/uL 1.88-7.09 H (test code = 6678230293) IMM GRAN x10^3 (test 0.38 10*3/uL 0-0.06 H code = 0540669318) LYMPH x10^3 (test 1.13 10*3/uL 1.32-3.29 L code = 731-0) MONO x10^3 (test code 1.44 10*3/uL 0.33-0.92 H = 742-7) EOS x10^3 (test code 0.19 10*3/uL 0.03-0.39 = 711-2) BASO x10^3 (test code 0.04 10*3/uL 0.01-0.07 = 704-7) BANDS (test code = MARKED INCREASED A 5300239113) Lab Interpretation Abnormal (test code = 04862-0) [facility] METABOLIC PANEL (NA, K, CL, CO2, GLUCOSE, BUN, CREATININE, CA)2019-10-25 11:39:00 Test Item Value Reference Range Interpretation Comments NA (test code = 129 mmol/L 135-145 L 4590617463) K (test code = 4.0 mmol/L 3.5-5 3497907508) CL (test code = 100 mmol/L 98-108 9020221512) CO2 TOTAL (test code = 20 mmol/L 23-31 L 0358750014) AGAP (test code = 2-16 6092830041) BUN (test code = 40 mg/dL 7-23 H 3422490381) GLUCOSE (test code = 111 mg/dL 70-110 H 6523927198) CREATININE (test code = 1.78 mg/dL 0.5-1.04 H 7022561124) CALCIUM (test code = 8.8 mg/dL 8.6-10.6 8606821652) eGFR Calculation mL/min/1.73m2 (Non-) (test code = 9112977685) eGFR Calculation mL/min/1.73m2 () (test code = 9393535852) SADIE (test code = SADIE) Association of [...] tests). Lab Interpretation Abnormal (test code = 58143-8) [facility] HospitalXR SH[facility]ER 2+ VW [id number] 19:29:15 Acromioclavicular joint osteoarthrosis. No acute fracture. EXAM: XR SHOULDER 2+ VW RIGHT HISTORY: pain COMPARISON: None FINDINGS: Imaging of the right shoulder demonstrates moderate acromioclavicular jointspace narrowing with marginal osteophytes. Lower cervical spineuncovertebral and facet arthropathy with spondylosis are partiallyvisualized. ?A right pleural effusion is suspected with elevation oftheright hemidiaphragm with fluid tracking into the minor fissure. [facility], Radiant Results Inft User -10/23/2019 2:30 PM CDTEXAM:XR SHOULDER 2+ VW RIGHTHISTORY:pain COMPARISON:NoneFINDINGS: Imaging of the right shoulder demonstrates moderate acromioclavicular jointspace narrowing with marginal osteophytes. Lower cervical spineuncovertebral and facet arthropathy with spondylosis are partiallyvisualized. A right pleural effusion is suspected with elevation of theright hemidiaphragm with fluid tracking into the minor fissure.IMPRESSIONAcromioclavicular joint osteoarthrosis.No acute fracture. [facility] LUNG PERFUSION [id number] 19:39:06 No imaging evidence for pulmonary embolic disease. LUNG PERFUSION INDICATION: Chest pain, acute, nonspecific, low prob CAD TECHNIQUE:The patient received an intravenous injection of 4 mCi of Tc99m MAAand a6-view lung perfusion scan was obtained. A SPECT was obtained, axial,coronal and sagittal images were reviewed..Comparison done to chest CT from 10/21/2019 FINDINGS: The lung perfusion is slightly heterogeneous. Subsegmental perfusiondeficit noted at the right lower lobe and right apex. There is no large orsum of segmental perfusion defects to suspect pulmonary embolic diseaseseen. [facility], Radiant Results [facility] 10/22/2019 2:40 PM CDTLUNG PERFUSION INDICATION: Chest pain, acute, nonspecific, low prob CAD TECHNIQUE:The patient received an intravenous injection of 4 mCi of Tc99m MAA and a6-view lung perfusion scan was obtained. A SPECT was obtained, axial,coronal and sagittal images were reviewed..Comparison done to chest CT from 10/21/2019 FINDINGS:The lung perfusion is slightly heterogeneous. Subsegmental perfusiondeficit noted at the right lower lobe and right apex. There is no large orsum of segmental perfusion defects to suspect pulmonary embolic diseaseseen.IMPRESSIONNo imaging evidence for pulmonary embolic disease.[facility] HospitalN-TERMINAL [id number] 13:45:00 Test Item Value Reference Range Interpretation Comments NT-proBNP (test code 155 pg/mL See_Comment H [Autom ated = 3640735466) message] The system which generated this result transmitted reference range : <=125. The reference range was not used to interpret this result as normal/abnormal . SADIE (test code = SADIE) Biotin has been reported to cause a negative bias, interpret results relative to patient's use of biotin. Lab Interpretation Abnormal (test code = 51060-3) [facility] HospitalMAGNESIUM2020-08-11 13:36:00 Test Item Value Reference Range Interpretation Comments MAGNESIUM (test code = 9866892335) 1.7 mg/dL 1.7-2.4 Lab Interpretation (test code = Normal 29663-8) [facility] HospitalTROPONIN [id number] 13:20:00 Test Item Value Reference Range Interpretation Comments TROPONIN I (test <0.012 See_Comment [Automated code = 5237654997) message] The system which generated this result [...] ? Lab Interpretation Normal (test code = 81241-4) [facility] HospitalaPTT2020-08-11 12:08:00 Test Item Value Reference Range Interpretation Comments APTT Patient (test See_Comment H [Automat ed code = 3173-2) message] The system which generated this result transmitted reference range : 23 - 38 Seconds . The reference range was not used to interpr et this result as normal/abnormal . SADIE (test code = SADIE) The [facility] patient population mean normal value for aPTT is 30 seconds. Lab Interpretation Abnormal (test code = 45091-6) [facility] Metabolic Panel (NA, K, CL, CO2, GLUCOSE, BUN, CREATININE, CA)2019-10-22 10:29:00 Test Item Value Reference Range Interpretation Comments NA (test code = 135 mmol/L 135-145 1544964530) K (test code = 3.7 mmol/L 3.5-5 0291411173) CL (test code = 105 mmol/L 98-108 1955170552) CO2 TOTAL (test code = 21 mmol/L 23-31 L 5789974539) AGAP (test code = 2-16 1957620328) BUN (test code = 22 mg/dL 7-23 7904619632) GLUCOSE (test code = 169 mg/dL 70-110 H 1313496421) CREATININE (test code = 1.16 mg/dL 0.5-1.04 H 7992735149) CALCIUM (test code = 9.4 mg/dL 8.6-10.6 6124184105) eGFR Calculation mL/min/1.73m2 (Non-) (test code = 6965145155) eGFR Calculation mL/min/1.73m2 () (test code = 3490780253) SADIE (test code = SADIE) Association of [...] tests). Lab Interpretation Abnormal (test code = 73494-6) [facility] with [id number] 10:14:00 Test Item Value Reference Range Interpretation Comments WBC (test code = See_Comment [Automated 8490-2) message] The sy stem which generated this result transmitted reference range : 4.30 - 11.10 10*3/?L. The reference range was not used to interpret this result as normal/abnormal . RBC (test code = See_Comment L [Automated 279-8) message] The sy stem which generated this [...] RDW-SD (test code = 41.8 fL 39-49.9 60224-3) RDW-CV (test code = 12.6 % 12-15.5 788-0) PLT (test code = See_Comment H [Automated 007-3) message] The sy stem which generated this result transmitted reference range : 166 - 358 10*3/ ?L. The reference r carlitos was not used to interpret this result as normal/abnormal . MPV (test code = 9.4 fL 9.5-12.9 L 68133-9) NRBC/100 WBC (test See_Comment [Automat ed code = 4824017690) message] The system which generated this result transmitted reference range : 0.0 - 10.0 /100 WBCs. The refer ence range was not u sed to interpret th is result as normal/abnormal . NRBC x10^3 (test code <0.01 See_Comment [Auto mated = 4440181255) message] The s ystem which generated this result transmitted reference range : 10*3/?L. The reference range was not used to interpret this result as normal/abnormal . GRAN MAT (NEUT) % 76.0 % (test code = 770-8) IMM GRAN % (test code 0.60 % = 8312093653) LYMPH % (test code = 12.4 % 736-9) MONO % (test code = 9.5 % 5905-5) EOS % (test code = 1.3 % 713-8) BASO % (test code = 0.2 % 706-2) GRAN MAT x10^3(ANC) 7.08 10*3/uL 1.88-7.09 (test code = 7705043895) IMM GRAN x10^3 (test 0.06 10*3/uL 0-0.06 code = 8959136401) LYMPH x10^3 (test code 1.15 10*3/uL 1.32-3.29 L = 731-0) MONO x10^3 (test code 0.88 10*3/uL 0.33-0.92 = 742-7) EOS x10^3 (test code = 0.12 10*3/uL 0.03-0.39 711-2) BASO x10^3 (test code <0.03 0.01-0.07 = 704-7) Lab Interpretation Abnormal (test code = 76449-8) [facility]URINALYSIS2020-08-11 07:34:00 Test Item Value Reference Range Interpretation Comments APPEARANCE (test code = Hazy Clear A 8026798265) COLOR (test code = Teresita Yellow A 1840070007) PH (test code = 4.8-8.0 6669520898) SP GRAVITY (test code = 1.003-1.030 1046486869) GLU U QUAL (test code = Normal Normal 4439615826) BLOOD (test code = 3+ Negative A 0631147320) KETONES (test code = Negative Negative 0400283276) PROTEIN (test code = 30 mg/dL Negative A 2887-8) UROBILIN (test code = 4.0 mg/dL Normal A 1834182229) BILIRUBIN (test code = 2 mg/dL Negative A 2724575509) NITRITE (test code = Negative Negative 8717758323) LEUK ALYSHA (test code = 75/uL Negative A 5319903409) RBC/HPF (test code = See_Comment H [Autom ated message] 2623645813) The system [employer] generated this result transmit mary kay reference range : 0 - 3 HPF. The refe rence range was not u sed to interpret th is result as normal/abnormal . WBC/HPF (test code = See_Comment H [Autom ated message] 9285317961) The system [employer] generated this result transmit mary kay reference range : 0 - 5 HPF. The refe rence range was not u sed to interpret th is result as normal/abnormal . BACTERIA (test code = Moderate Negative A 9074365992) MUCOUS (test code = Moderate Negative LPF A 2393937312) SQ EPITH (test code = HPF 8340767535) HYAL CAST (test code = See_Comment H [Aut omated message] 7757403655) The system [employer] generated this result transmit mary kay reference range : <=2 LPF. The refere nce range was not u sed to interpret th is result as normal/abnormal . Ictotest (test code = Positive 3680905682) GRAN CASTS (test code = See_Comment H [Au tomated message] 1105802805) The system [employer] generated this result transmit mary kay reference range : <=1 LPF. The refere nce range was not u sed to interpret th is result as normal/abnormal . Lab Interpretation (test Abnormal code = 36402-0) [facility] HospitalPROTHROMBIN TIME / [id number] 00:28:00 Test Item Value Reference Range Interpretation Comments PROTIME PATIENT (test See_Comment [Auto mated message] code = 5964-2) The system wh ich generated this result transmitted ref erence range: 12.0 - 1 4.7 Seconds. The re ference range was not u sed to interpret this result as normal/abnor mal. INR (test code = 6301-6) Nor mal INR <1.1; Warfarin Therap eutic range 2.0 to 3. 0 or 2.5 to 3.5, dep ending upon the indica tions. Lab Interpretation (test Normal code = 57169-7) [facility] HospitalTROPONIN [id number] 00:11:00 Test Item Value Reference Range Interpretation Comments TROPONIN I (test <0.012 See_Comment [Automated code = 4280964828) message] The system which generated this result [...] ? Lab Interpretation Normal (test code = 08158-1) [facility] HospitalCT THORAX WO [id number] 21:41:45 Small to moderate loculated pleural effusions in the right base withadjacent compressive atelectatic changes. No left lung lesion is seen Hepatic steatosis PROCEDURE: CTCHEST NON CONTRAST - CHEST PROTOCOL CLINICAL INDICATION: Cough, persistent Chest pain or SOB, pleurisy oreffusion suspected ? COMPARISON x-ray chest from 10/21/2019. TECHNIQUE: ?Helical CT was performedof the chest (lung apices [...] pleural effusion, thickening or pneumothorax. Thoracic aorta and great vessels: ?Normal in diameter. Mild atheroscleroticcalcifications are seen in the arch origin ofleft subclavian, and thedescending thoracic aorta Pulmonary arteries: Unremarkable. Heart and pericardium: Moderate calcifications in the right coronary andthe LAD. . Unremarkable cardiac morphology and pericardium. Lymph nodes: No enlarged thoracic lymph nodes. Mediastinum: Unremarkable. Thoracic spine and chest wall: Unremarkable, with normal thoracic vertebralbody heights. Mild degenerative changes. Other Lines/Tubes/Devices/Hardware: None Visualized upper abdomen.Hepatic steatosis Cholecystectomy [facility], Radiant Results Inft User - 10/21/2019 4:42 PM CDTPROCEDURE: CT CHEST NON CONTRAST - CHEST PROTOCOLCLINICAL INDICATION: Cough, persistent Chest pain or SOB, pleurisy oreffusion suspected COMPARISON x-ray chest from 10/21/2019.TECHNIQUE: Helical CT was performed of the chest (lung apices to bases). Images were reconstructed at 1.25 mm slice thickness. MIP and coronal &sagittal MPR images were generated and reviewed. (DFOV = cm)FINDINGS:Lower neck/thyroid: Unremarkable.Lungs: Loculated pleural effusion at the base of the right lung withadjacent compressive atelectatic changes.. Rest of the right lung is clear.No lesion is seen in the left lung.Central airway:Unremarkable.Pleura: No pleural effusion, thickening or pneumothorax.Thoracic aorta and great vessels : Normal in diameter. Mild atheroscleroticcalcifications are seen in the arch origin of left subclavian, and thedescending thoracic aortaPulmonary arteries: Unremarkable.Heart and pericardium: Moderatecalcifications in the right coronary andthe LAD. . Unremarkable cardiac morphology and pericardium.Lymph nodes: No enlarged thoracic lymph nodes.Mediastinum: Unremarkable.Thoracic spine and chest wall:Unremarkable, with normal thoracic vertebralbody heights. Mild degenerative changes.Other Lines/Tubes/Devices/Hardware: NoneVisualized upper abdomen.Hepatic steatosis Cholecystectomy IMPRESSIONSmall to moderate loculated pleural effusions in the right base withadjacent compressive atelectatic changes.No left lung lesion is seenHepatic steatosis [facility] HospitalCOMP. METABOLIC PANEL (51778)2019-10-21 18:32:00 Test Item Value Reference Range Interpretation Comments NA (test code = 139 mmol/L 135-145 0338357479) K (test code = 3.5 mmol/L 3.5-5 2812750778) CL (test code = 105 mmol/L 98-108 5825643497) CO2 TOTAL (test code = 23 mmol/L 23-31 7783099209) AGAP (test code = 2-16 9484043050) BUN (test code = 21 mg/dL 7-23 9715191087) GLUCOSE (test code = 178 mg/dL 70-110 H 4095484735) CREATININE (test code = 1.01 mg/dL 0.5-1.04 9066709710) TOTAL BILI (test code = 1.4 mg/dL 0.1-1.1 H 4539878488) CALCIUM (test code = 9.8 mg/dL 8.6-10.6 9347593458) T PROTEIN (test code = 7.2 g/dL 6.3-8.2 1596364651) ALBUMIN (test code = 3.8 g/dL 3.5-5 6331610264) ALK PHOS (test code = 82 U/L 34-122 4632808449) ALTv (test code = 38 U/L 5-35 H 1742-6) AST(SGOT) (test code = 48 U/L 13-40 H 7909404591) eGFR Calculation mL/min/1.73m2 (Non-) (test code = 1291479634) eGFR Calculation mL/min/1.73m2 () (test code = 6481990692) SADIE (test code = SADIE) Association of [...] tests). Lab Interpretation Abnormal (test code = 26758-1) [id number] 18:28:00 Test Item Value Reference Interpretation Comments Range D-DIMER (test code = See_Comment H [Autom ated [id number]) message] The system which generated this result [...] diagnosis. Lab Interpretation Abnormal (test code = 79852-5) [facility] 1 VW [id number] 18:27:47 Suspected patchy airspace opacity in the left lingula. A lateral chestx-ray can be obtained. Disclaimer: Generally, the findings on chest imaging in COVID-19 are notspecific, and overlap with other infections, including influenza, H1N1,SARS and MERS.According to the Centers for Disease Control (CDC) and recent statement ofthe [employer], viral testing remains the [...] bony abnormality. [facility], Radiant Results Inft User -10/21/2019 1:29 PM CDTPROCEDURE: CHEST, SINGLE VIEWCLINICAL INDICATION: cough, chest pain COMPARISON: NoneFINDINGS:Lungs: There is suspected airspace retrocardiac opacity . It does notselect the left cardiac margin, is likely in the lingula of the upper lobeNo pleural effusion or pneumothorax is seen.The heart is normal in size.No acute bony abnormality.IMPRESSIONSuspected patchy airspace opacity inthe left lingula. A lateral chestx-ray can be obtained.Disclaimer: Generally, the findings on chest imaging in COVID-19 are notspecific, and overlap with other infections, including influenza, H1N1,SARS and MERS.According to the Centers for Disease Control (CDC) and recent statement ofthe [employer], viral testing remains the only specificmethod of diagnosis. Confirmation with the v iral test is required, even ifradiologic findings are suggestive of COVID-[address]COVID[facility] (ID NOW RAPID TESTING) 2019-10-21 18:10:00 Test Item Value Reference Range Interpretation Comments SARS-CoV-2 Rapid ID NOW Not Detected Not Detected (test code = 74259-0) SADIE (test code = SADIE) ID NOW COVID-19 Assay is an isothermal nucleic acid amplification test intended for the qualitative detection of nucleic acid from SARS-CoV-2 viral RNA in nasopharyngeal (SEAT [employer] MACHINE) specimens. It is used under Emergency Use [...] indicated. Lab Interpretation Normal (test code = 89032-3) [facility] WITH [id number] 18:03:00 Test Item Value Reference Range Interpretation Comments WBC (test code = See_Comment [Automated 6790-2) message] The sy stem which generated this result transmitted reference range : 4.30 - 11.10 10*3/?L. The reference range was not used to interpret this result as normal/abnormal . RBC (test code = See_Comment L [Automated 859-8) message] The sy stem which generated this [...] RDW-SD (test code = 40.8 fL 39-49.9 38485-9) RDW-CV (test code = 12.3 % 12-15.5 788-0) PLT (test code = See_Comment H [Automated 777-3) message] The sy stem which generated this result transmitted reference range : 166 - 358 10*3/ ?L. The reference r carlitos was not used to interpret this result as normal/abnormal . MPV (test code = 9.1 fL 9.5-12.9 L 77375-9) NRBC/100 WBC (test See_Comment [Automat ed code = 5705023451) message] The system which generated this result transmitted reference range : 0.0 - 10.0 /100 WBCs. The refer ence range was not u sed to interpret th is result as normal/abnormal . NRBC x10^3 (test code <0.01 See_Comment [Auto mated = 3419577136) message] The s ystem which generated this result transmitted reference range : 10*3/?L. The reference range was not used to interpret this result as normal/abnormal . GRAN MAT (NEUT) % 76.8 % (test code = 770-8) IMM GRAN % (test code 0.50 % = 5481927311) LYMPH % (test code = 12.1 % 736-9) MONO % (test code = 9.7 % 5905-5) EOS % (test code = 0.5 % 713-8) BASO % (test code = 0.4 % 706-2) GRAN MAT x10^3(ANC) 6.49 10*3/uL 1.88-7.09 (test code = 2986127125) IMM GRAN x10^3 (test 0.04 10*3/uL 0-0.06 code = 6477292192) LYMPH x10^3 (test code 1.02 10*3/uL 1.32-3.29 L = 731-0) MONO x10^3 (test code 0.82 10*3/uL 0.33-0.92 = 742-7) EOS x10^3 (test code = 0.04 10*3/uL 0.03-0.39 711-2) BASO x10^3 (test code 0.03 10*3/uL 0.01-0.07 = 704-7) Lab Interpretation Abnormal (test code = 58645-8) [facility] HospitalKn Left 2 ViewKnee Left 2 ViewHip Right 2 ViewHip Right 2 ViewKnee Right 2 ViewKnee Right 2 View
[2022-07-20 20:24] LABS: Absolute Lymphocytes (CBC) 1.4 K/uL (0.7-4.9); Hematocrit 29.2 % (36.0-45.0); Lymphocytes % 24.7 % (15.3-44.8); MCV 92.9 fL (80-100); RBC Red Blood Cell Count 3.14 M/uL (3.86-4.86)
[2022-07-20] MEDS ORDERED: NA CHLORIDE 0.9% 1,000 ML ONE (20:25)
[2022-07-20] MEDS ORDERED: ONDANSETRON 4 MG/2 ML VIAL ONE (20:25)
[2022-07-20] MEDS ORDERED: FENTANYL CITR 100 MCG/2 ML ONE (20:25)
[2022-07-20 20:40] LABS: Albumin 3.4 g/dL (3.4-5.0); Bilirubin Total 0.3 mg/dL (0.2-1.0); Potassium 3.5 mEq/L (3.5-5.1); Protein, Total 6.3 g/dL (6.4-8.2)
[2022-07-20 20:58] LABS: Specific Gravity < 1.005 (1.005-1.030); Urine Bacteria None Seen /HPF (<20); Urine Bilirubin NEGATIVE (Negative); Urine Blood 2+ (Negative); Urine Clarity Clear (Clear); Urine Color Colorless (Yellow); Urine Glucose NEGATIVE (Negative); Urine Protein 1+ (Negative); Urine RBC <5 /HPF (None Seen); Urine Urobilinogen Normal (Normal); Urine pH 6.5 (5.0-7.0)
--- NOTE | 2022-07-20 20:58 | RAD REPORT ---
EXAM DESCRIPTION: CT - Stone Protocol - 07/20/2022 8:49 pm CLINICAL HISTORY: Flank pain. Pain;Abd pain COMPARISON: <Comparisons> TECHNIQUE: Axial images were obtained without oral or IV contrast. Lack of contrast limits solid org an and vascular assessment. The [id number] spans the entirety of the system partially obscuring uppermost abdomen and lung bases. Coronal reformatted images were obtained and reviewed. All CT scans are performed using dose optimization technique as appropriate and may include automated exposure control or mA/KV adjustment according to patient size. FINDINGS: The lower lung arevalo are clear. Cholecystectomy clips. Imaged portions of the liver and spleen show no suspicious findings on non-contrast imaging. The panc reas and adrenal glands are normal. No pathologic lymphadenopathy in the abdomen or pelvis. Several s mall fat containing ventral hernias. No urinary tract stones or obstructive uropathy. No bowel obstruction, free air, free fluid or abscess. Normal appendix noted. No significant bony abnormality. IMPRESSION: No urinary tract stones or obstructive uropathy.
--- NOTE | 2022-07-20 23:06 | EDPHYS ---
Physician Documentation [facility] Name: Eileen Hernandez Age: 66 yrs Sex: Female : 1955 Arrival Date: 07/20/2022 Time: 18:46 Bed 17 Private MD: ED Physician Juan Espino HPI: 07/20 22:56 This 66 yrs old Female presents to ER via Ambulatory with complaints of emely Nausea, Headache, Abdominal Pain, Flank Pain, High Blood Pressure. 22:56 The patient presents to the emergency department with nausea, vomiting, abdominal pain, emely described as crampy, sharp. Onset: The symptoms/episode began/occurred just prior to arrival. Possible causes: unknown. The symptoms are aggravated by nothing. The symptoms are alleviated by nothing. Severity of symptoms: At their worst the symptoms were moderate in the emergency department the symptoms have improved moderately. The patient has not experienced similar symptoms in the past. Historical: - Allergies: 19:18 Codeine; as6 19:18 Red Dye; as6 19:18 Naproxen; as6 19:18 Ibuprofen; as6 19:18 Iodine; as6 - PMHx: 19:18 diabetes mellitus; Hypercholesterolemia; Hypertensive disorder; Pancreatitis; as6 - PSHx: 19:18 Appendectomy; Cholecystectomy; mass removed from left breast, noncancerous; partial as6 removal of pancreas; Tonsillectomy; - Immunization history:: Client reports receiving the 2nd dose of the Covid vaccine, moderna. - Social history:: Smoking status: Patient denies any tobacco usage or history of. ROS: 22:57 Constitutional: Negative for fever, chills, and weight loss, Eyes: Negative for injury, emely pain, redness, and discharge, ENT: Negative for injury, pain, and discharge, Neck: Negative for injury, pain, and swelling, Cardiovascular: Negative for chest pain, palpitations, and edema, Respiratory: Negative for shortness of breath, cough, wheezing, and pleuritic chest pain, : Negative for injury, bleeding, discharge, and swelling, MS/Extremity: Negative for injury and deformity, Skin: Negative for injury, rash, and discoloration, Neuro: Negative for headache, weakness, numbness, tingling, and seizure, Psych: Negative for depression, anxiety, suicide ideation, homicidal ideation, and hallucinations, Allergy/Immunology: Negative for hives, rash, and allergies, Endocrine: Negative for neck swelling, polydipsia, polyuria, polyphagia, and marked weight changes. 22:57 Abdomen/GI: Positive for abdominal pain, of the posterior aspect of left lateral abdomen, anterior aspect of left lateral abdomen, left upper quadrant and left lower quadrant. 22:57 Back: Positive for flank pain, on the left. Exam: 22:57 Constitutional: This is a well developed, well nourished patient who is awake, alert, emely and in no acute distress. Head/Face: Normocephalic, atraumatic. Eyes: Pupils equal round and reactive to light, extra-ocular motions intact. Lids and lashes normal. Conjunctiva and sclera are non-icteric and not injected. Cornea within normal limits. Periorbital areas with no swelling, redness, or edema. ENT: Nares patent. No nasal discharge, no septal abnormalities noted. Tympanic membranes are normal and external auditory canals are clear. Oropharynx with no redness, swelling, or masses, exudates, or evidence of obstruction, uvula midline. Mucous membranes moist. Neck: Trachea midline, no thyromegaly or masses palpated, and no cervical lymphadenopathy. Supple, full range of motion without nuchal rigidity, or vertebral point tenderness. No Meningismus. Chest/axilla: Normal chest wall appearance and motion. Nontender with no deformity. No lesions are appreciated. Cardiovascular: Regular rate and rhythm with a normal S1 and S2. No gallops, murmurs, or rubs. Normal PMI, no JVD. No pulse deficits. Respiratory: Lungs have equal breath sounds bilaterally, clear to auscultation and percussion. No rales, rhonchi or wheezes noted. No increased work of breathing, no retractions or nasal flaring. Female : Normal external genitalia. Skin: Warm, dry with normal turgor. Normal color with no rashes, no lesions, and no evidence of cellulitis. MS/ Extremity: Pulses equal, no cyanosis. Neurovascular intact. Full, normal range of motion. Neuro: Awake and alert, GCS 15, oriented to person, place, time, and situation. Cranial nerves II-XII grossly intact. Motor strength 5/5 in all extremities. Sensory grossly intact. Cerebellar exam normal. Normal gait. Psych: Awake, alert, with orientation to person, place and time. Behavior, mood, and affect are within normal limits. 22:57 Abdomen/GI: Inspection: abdomen appears normal, Bowel sounds: normal, Palpation: mild abdominal tenderness, in the posterior aspect of left lateral abdomen, anterior aspect of left lateral abdomen, left upper quadrant and left lower quadrant. 22:57 Back: pain, that is mild, ROM is normal, normal spinal alignment noted, CVA tenderness, is absent, muscle spasm, is not present. 23:09 ECG was reviewed by the Attending Physician. [facility] Vital Signs: 19:14 BP 138 / 69; Pulse 72; Resp 18 S; Temp 98.1(O); Pulse Ox 96% on R/A; Weight 54.88 kg as6 (R); Height 4 ft. 10 in. (R); Pain 9/10; 22:00 BP 147 / 59; Pulse 59; Resp 16; Pulse Ox 98% on R/A; jb4 23:00 BP 150 / 59; Pulse 64; Resp 16; Pulse Ox 100% on R/A; jb4 19:14 Body Mass Index 25.29 (54.88 kg, 147.32 cm) as6 19:14 Pain Scale: Adult as6 MDM: 20:11 Patient medically screened. [facility] 22:57 Differential diagnosis: nephrolithiasis, pyelonephritis, UTI, diverticulitis, emely pancreatitis, ruptured AAA, dissecting AAA, Nonspecific abd pain, diverticulitis, viral gastroenteritis, gastroenteritis, Abdominal Aortic Aneurysm arthritis. Data reviewed: vital signs, nurses notes, lab test result(s), EKG, radiologic studies, CT scan. Consideration of Admission/Observation Escalation of care including admission/observation considered. I considered the following discharge prescriptions or medication management in the emergency department Medications were administered in the Emergency Department. See MAR. Test considered but Not performed: Ultrasound no renal usg. Care significantly affected by the following chronic conditions: Diabetes, Hypertension, Obesity, hypercholesterol. 07/20 20:02 Order name: CBC with Diff; Complete Time: 22:48 07/20 20:02 Order name: CMP; Complete Time: 22:48 as07/20 20:02 Order name: Lipase; Complete Time: 22:48 as07/20 20:12 Order name: Urinalysis w/ reflexes; Complete Time: 22:48 [facility] 07/20 20:02 Order name: CT Stone Protocol; Complete Time: 22:48 07/20 22:56 Order name: EKG; Complete Time: 22:56 [facility] 07/20 20:02 Order name: IV Saline Lock; Complete Time: 20:36 07/20 20:02 Order name: Labs collected and sent; Complete Time: 20:36 07/20 22:56 Order name: EKG - Nurse/Tech; Complete Time: 23:25 [facility] 07/20 22:56 Order name: EKG - Nurse/Tech; Complete Time: 23:25 rv1 EC:09 Rate is 63 beats/min. Rhythm is regular. QRS [place] is Normal. VA interval is normal. QRS emely interval is normal. QT interval is normal. No Q waves. T waves are Normal. Clinical impression: NSR w/ Non-specific ST/T Changes and No evidence of ischemia. Interpreted by me. Reviewed by me. Administered Medications: 20:30 Drug: fentaNYL (PF) IVP 25 mcg Route: IVP; Site: right antecubital; jb4 21:00 Follow up: Response: No adverse reaction; Marked relief of symptoms; Pain is decreased jb4 20:30 Drug: Ondansetron IVP 4 mg Route: IVP; Site: right antecubital; jb4 21:00 Follow up: Response: No adverse reaction; Marked relief of symptoms jb4 20:36 Drug: NS 0.9% IV 1000 ml Route: IV; Rate: 1 bolus; Site: right antecubital; jb4 21:30 Follow up: Response: No adverse reaction; IV Status: Completed infusion; IV Intake: jb4 1000ml 20:36 Drug: fentaNYL (PF) IVP 25 mcg Route: IVP; Site: right antecubital; jb4 21:00 Follow up: Response: No adverse reaction; Marked relief of symptoms jb4 23:13 Not Given (Physician Discretion): NS 0.9% IV 1000 ml IV at 1 bolus Per protocol; 1000 jb4 mL bolus 23:16 Drug: Flomax PO 0.4 mg Route: PO; jb4 23:26 Follow up: Response: No adverse reaction jb4 23:26 Drug: Rocephin IV 1 grams Route: IV; Rate: per protocol; Site: right forearm; jb4 23:26 Follow up: Response: Medication administered at discharge.; IV Status: Completed jb4 infusion Disposition Summary: 07/20/22 23:05 Discharge Ordered Location: Home [facility] Problem: new emely Symptoms: have improved emely Condition: Stable emely Diagnosis - Abdominal tenderness - left flank pain emely - Anemia, unspecified emely - Abnormal level of enzymes in specimens from digestive organs and abdominal cavity - emely elevated lipase - Essential (primary) hypertension emely - Hematuria, unspecified emely Followup: emely - With: Private Physician - When: 2 - 3 days - Reason: Recheck today's complaints, Continuance of care, Re-evaluation by your physician Discharge Instructions: - Discharge Summary Sheet emely - Anemia emely - Flank Pain, Adult emely - Hematuria, Adult emely - Hypertension, Adult emely - Hypertension, Adult, Jzdo-jf-Rgyg emely - How to Take Your Blood Pressure, Qvvx-fs-Usfd emely - Flank Pain, Adult, Goax-hx-Uiap emely - Managing Your Hypertension [facility] Forms: - Medication Reconciliation Form emely - Thank You Letter emely - Antibiotic Education emely - Prescription Opioid Use emely Prescriptions: - Flomax 0.4 mg Oral capsule - take 1 capsule by ORAL route every 24 hours; 20 capsule; Refills: 0, Product emely Selection Permitted - Cipro 250 mg Oral Tablet - take 1 tablet by ORAL route every 12 hours; 14 tablet; Refills: 0, Product emely Selection Permitted - Zofran 4 mg Oral Tablet - take 1 tablet by ORAL route every 8 hours As needed; 28 tablet; Refills: 0, emely Product Selection Permitted - dicyclomine 20 mg Oral Tablet - take 1 tablet by ORAL route 4 times per day; 28 tablet; Refills: 0, Product emely Selection Permitted Signatures: Dispatcher [employer] Juan Martínez MD MD cha Bryson, James, RN RN jb4 Mani Sabillon RN RN as6 Terra Castañeda [facility]
--- NOTE | 2022-07-20 23:06 | ER ---
Nurse's Notes [facility] Name: Eileen Hernandez Age: 66 yrs Sex: Female : 1955 Arrival Date: 07/20/2022 Time: 18:46 Bed 17 Private MD: Diagnosis: Abdominal tenderness-left flank pain;Anemia, unspecified;Abnormal level of enzymes in specimens from digestive organs and abdominal cavity-elevated lipase;Essential (primary) hypertension;Hematuria, unspecified Presentation: 07/20 19:14 Chief complaint: Patient states: c/o left flank pain that radiates to LLQ. Coronavirus as6 screen: At this time, the client does not indicate any symptoms associated with coronavirus-19. Ebola Screen: No symptoms or risks identified at this time. Initial Sepsis Screen: Does the patient meet any 2 criteria? No. Patient's initial sepsis screen is negative. Does the patient have a suspected source of infection? No. Patient's initial sepsis screen is negative. Risk Assessment: Do you want to hurt yourself or someone else? Patient reports no desire to harm self or others. Onset of symptoms was July 20, 2022. 19:14 Method Of Arrival: Ambulatory as6 19:14 Acuity: SRIRAM 3 as6 Triage Assessment: 19:19 General: Appears uncomfortable, Behavior is calm, cooperative. Pain: Complains of pain as6 in left flank Pain radiates to left lower quadrant. Historical: - Allergies: 19:18 Codeine; as6 19:18 Red Dye; as6 19:18 Naproxen; as6 19:18 Ibuprofen; as6 19:18 Iodine; as6 - PMHx: 19:18 diabetes mellitus; Hypercholesterolemia; Hypertensive disorder; Pancreatitis; as6 - PSHx: 19:18 Appendectomy; Cholecystectomy; mass removed from left breast, noncancerous; partial as6 removal of pancreas; Tonsillectomy; - Immunization history:: Client reports receiving the 2nd dose of the Covid vaccine, moderna. - Social history:: Smoking status: Patient denies any tobacco usage or history of. Screenin:00 [facility] ED Fall Risk Assessment (Adult) History of falling in the last 3 months, jb4 including since admission No falls in past 3 months (0 pts) Confusion or Disorientation No (0 pts) Score/Fall Risk Level 0 - 2 = Low Risk Oriented to surroundings, Maintained a safe environment. Abuse screen: Denies threats or abuse. Nutritional screening: No deficits noted. Tuberculosis screening: No symptoms or risk factors identified. Assessment: 20:00 General: Appears in no apparent distress. uncomfortable, Behavior is calm, cooperative, jb4 appropriate for age. Pain: Complains of pain in left flank Pain does not radiate. Pain currently is 8 out of 10 on a pain scale. Neuro: Level of Consciousness is awake, alert, obeys commands, Oriented to person, place, time, situation. Cardiovascular: Patient's skin is warm and dry. Respiratory: Airway is patent Respiratory effort is even, unlabored, Respiratory pattern is regular, symmetrical. GI: Abdomen is flat, non-distended. : No signs and/or symptoms were reported regarding the genitourinary system. EENT: No signs and/or symptoms were reported regarding the EENT system. Derm: Skin is intact, Skin is pink, warm \T\ dry. Musculoskeletal: Circulation, motion, and sensation intact. Range of motion: intact in all extremities. 21:00 Reassessment: Patient appears in no apparent distress at this time. Patient and/or jb4 family updated on plan of care and expected duration. Pain level reassessed. Patient is alert, oriented x 3, equal unlabored respirations, skin warm/dry/pink. 22:00 Reassessment: Patient appears in no apparent distress at this time. Patient and/or jb4 family updated on plan of care and expected duration. Pain level reassessed. Patient is alert, oriented x 3, equal unlabored respirations, skin warm/dry/pink. 23:27 Reassessment: Patient appears in no apparent distress at this time. Patient and/or jb4 family updated on plan of care and expected duration. Pain level reassessed. Patient is alert, oriented x 3, equal unlabored respirations, skin warm/dry/pink. Vital Signs: 19:14 BP 138 / 69; Pulse 72; Resp 18 S; Temp 98.1(O); Pulse Ox 96% on R/A; Weight 54.88 kg as6 (R); Height 4 ft. 10 in. (R); Pain 9/10; 22:00 BP 147 / 59; Pulse 59; Resp 16; Pulse Ox 98% on R/A; jb4 23:00 BP 150 / 59; Pulse 64; Resp 16; Pulse Ox 100% on R/A; jb4 19:14 Body Mass Index 25.29 (54.88 kg, 147.32 cm) as6 19:14 Pain Scale: Adult as6 ED Course: 18:47 Patient arrived in ED. rg4 19:18 Triage completed. as6 19:19 Arm band placed on. as6 19:59 Romario Alexander, RN is Primary Nurse. jb4 20:10 Initial lab(s) drawn, by me, sent to lab. Inserted saline lock: 22 gauge in left jb4 forearm, using aseptic technique. Blood collected. 20:11 Juan Espino MD is Attending Physician. emely 20:33 Urinalysis w/ reflexes Sent. kl 20:51 CT Stone Protocol In Process Unspecified. EDMS 21:00 Patient has correct armband on for positive identification. Bed in low position. Call jb4 light in reach. Side rails up X 1. Client placed on continuous cardiac and pulse oximetry monitoring. NIBP monitoring applied. 23:28 No provider procedures requiring assistance completed. IV discontinued, intact, jb4 bleeding controlled, No redness/swelling at site. Pressure dressing applied. Administered Medications: 20:30 Drug: fentaNYL (PF) IVP 25 mcg Route: IVP; Site: right antecubital; jb4 21:00 Follow up: Response: No adverse reaction; Marked relief of symptoms; Pain is decreased jb4 20:30 Drug: Ondansetron IVP 4 mg Route: IVP; Site: right antecubital; jb4 21:00 Follow up: Response: No adverse reaction; Marked relief of symptoms jb4 20:36 Drug: NS 0.9% IV 1000 ml Route: IV; Rate: 1 bolus; Site: right antecubital; jb4 21:30 Follow up: Response: No adverse reaction; IV Status: Completed infusion; IV Intake: jb4 1000ml 20:36 Drug: fentaNYL (PF) IVP 25 mcg Route: IVP; Site: right antecubital; jb4 21:00 Follow up: Response: No adverse reaction; Marked relief of symptoms jb4 23:13 Not Given (Physician Discretion): NS 0.9% IV 1000 ml IV at 1 bolus Per protocol; 1000 jb4 mL bolus 23:16 Drug: Flomax PO 0.4 mg Route: PO; jb4 23:26 Follow up: Response: No adverse reaction jb4 23:26 Drug: Rocephin IV 1 grams Route: IV; Rate: per protocol; Site: right forearm; jb4 23:26 Follow up: Response: Medication administered at discharge.; IV Status: Completed jb4 infusion Medication: 21:00 VIS not applicable for this client. jb4 Intake: 21:30 IV: 1000ml; Total: 1000ml. jb4 Outcome: 23:05 Discharge ordered by MD. han 23:28 Discharged to home ambulatory, with family. jb4 23:28 Condition: stable 23:28 Discharge instructions given to patient, Instructed on discharge instructions, follow up and referral plans. medication usage, Demonstrated understanding of instructions, follow-up care, medications, Prescriptions given X 4. 23:28 Patient left the ED. jb4 Signatures: Dispatcher [employer] EDSherine Berrios, RN Juan Flores MD MD cha Garcia, Rubi rg4 Romario Alexander RN RN jb4 Mani Sabillon RN RN as6
[2022-07-20] MEDS ORDERED: TAMSULOSIN 0.4 MG SR CAP ONE (23:18)
[2022-07-20] MEDS ORDERED: CEFTRIAXONE 1000 MG/VIAL ONE (23:18)
[2022-07-20 23:47] VITALS: TEMP 98.1
[2022-07-20 23:53] VITALS: BP 150/59; O2SAT 100
--- NOTE | 2022-07-21 14:27 | EKG ---
Test Date: 2022-07-20 Test Time: 23:06:42 [employer]: IVELISSE MEASUREMENT RESULTS: Intervals: Rate: 63 NM: 180 QRSD: 82 QT: 412 QTc: 421 [place]: P: 71 NM: 180 QRS: 39 T: 49 INTERPRETIVE STATEMENTS: Normal sinus rhythm Normal ECG Compared to ECG 12/15/2021 18:44:17 Sinus bradycardia no longer present Electronically Signed On 07-21-22 14:25:40 CDT by Dave Rivers
== END 2022-07-20 23:28 | disposition home or self-care (01) ==
LOC: ER 18:46
DX: R10.814 Left lower quadrant abdominal tenderness (principal); D64.9 Anemia, unspecified; R31.9 Hematuria, unspecified; R73.09 Other abnormal glucose; I10 Essential (primary) hypertension; Z88.5 Allergy status to narcotic agent; Z88.6 Allergy status to analgesic agent; Z91.02 Food additives allergy status; Z91.048 Other nonmedicinal substance allergy status
CPT/HCPCS: 85025; 81001; 36415; 83690; 80053; 76377; 74176; J3010; J2405; J7030; J0696; 93005

== ENCOUNTER 2023-11-22 14:32 | Emergency (ER) | payer MEDICARE ==
[2023-11-22 16:20] LABS: SARS-CoV-2 Antigen CONTROL BLUE LINE VIS/BG OK
[2023-11-22 16:21] LABS: SARS-CoV-2 Antigen Rapid Res Positive (Negative)
[2023-11-22] MEDS ORDERED: ACETAMINOPHEN 500 MG TAB ONE (16:40)
[2023-11-22] MEDS ORDERED: ONDANSETRON 4 MG (ODT) TAB ONE (16:40)
[2023-11-22] MEDS ORDERED: TRAMADOL HCL 50 MG TAB ONE (16:41)
--- NOTE | 2023-11-22 16:44 | EDPHYS ---
Physician Documentation [facility] Name: Eileen Hernandez Age: 68 yrs Sex: Female : 1955 Arrival Date: 11/22/2023 Time: 14:32 Bed 12 Private MD: ED Physician La Spivey HPI: 11/21 15:39 This 68 yrs old Female presents to ER via Wheelchair with complaints of sd2 Dizziness, Weakness. 15:39 68 yo F presents with CC of generalized weakness, body aches and lightheadedness sd2 starting this morning. Has also had a mild intermittent cough and runny nose. Denies sick contacts. Reports taking 325mg of Tylenol this AM with no relief. Found to have fever upon arrival. Denies vomiting, diarrhea. +nausea. Historical: - Allergies: 15:14 Codeine; iw 15:14 Iodine; iw 15:14 Naproxen; iw 15:14 Red Dye; iw 15:14 Ibuprofen; iw - PMHx: 15:14 diabetes mellitus; Hypercholesterolemia; Hypertensive disorder; Pancreatitis; iw - PSHx: 15:14 Cholecystectomy; Appendectomy; mass removed from left breast; partial removal of iw pancreas; Tonsillectomy; - Immunization history:: Adult Immunizations up to date. - Infectious Disease History:: Denies. - Social history:: Smoking status: Patient denies any tobacco usage or history of. ROS: 15:39 Eyes: Negative for injury, pain, redness, and discharge, Neck: Negative for injury, sd2 pain, and swelling, Cardiovascular: Negative for chest pain, palpitations, and edema, Respiratory: Negative for shortness of breath, cough, wheezing. 15:39 : Negative for dysuria, urinary frequency, hesitancy, urgency and hematuria. MS/Extremity: Negative for injury and deformity, Skin: Negative for injury, rash, and discoloration, 15:39 Constitutional: Positive for body aches, fever, Negative for chills, 15:39 Abdomen/GI: Positive for nausea, Negative for abdominal pain, vomiting, diarrhea, Exam: 15:39 Constitutional: This is a well developed, well nourished patient who is awake, alert, sd2 and in no acute distress. Head/Face: Normocephalic, atraumatic. Eyes: EOMI, normal conjunctiva bilaterally Chest/axilla: Normal chest wall appearance and motion. Nontender with no deformity. Cardiovascular: Regular rate and rhythm with a normal S1 and S2. No gallops, murmurs, or rubs. 2+ distal pulses. Respiratory: Lungs have equal breath sounds bilaterally, clear to auscultation and percussion. No rales, rhonchi or wheezes noted. No increased work of breathing, no retractions or nasal flaring. Abdomen/GI: Soft, non-tender, with normal bowel sounds. No guarding or rebound. No evidence of tenderness throughout. Skin: Warm, dry with normal turgor. Normal color with no rashes, no lesions, and no evidence of cellulitis. MS/ Extremity: Pulses equal, no cyanosis. Neurovascular intact. Full, normal range of motion. Psych: Awake, alert, with orientation to person, place and time. Behavior, mood, and affect are within normal limits. 17:34 ECG was reviewed by the Attending Physician. NSR, rate 87, no STEMI criteria sd2 Vital Signs: 15:13 BP 157 / 66; Pulse 97; Resp 18; Temp 97.6; Pulse Ox 98% on R/A; Weight 49.44 kg; Height iw 4 ft. 10 in. ; Pain 9/10; 15:31 Pulse 92; Resp 18; Temp 100.2(O); Pulse Ox 98% on R/A; ap3 17:28 Pulse 86; Resp 18; Temp 99.4; ap3 15:13 Body Mass Index 22.78 (49.44 kg, 147.32 cm) iw 15:13 Pain Scale: Adult iw MDM: 15:16 Patient medically screened. sd2 15:39 Differential diagnosis: viral URI, ACS, arthritis, dehydration, electrolyte abnormality sd2 among others. Data reviewed: vital signs, nurses notes, lab test result(s), EKG. I considered the following discharge prescriptions or medication management in the emergency department Medications were administered in the Emergency Department. See MAR. Care significantly affected by the following chronic conditions: Diabetes, Hypertension, Chronic Kidney Disease. 16:41 Counseling: I had a detailed discussion with the patient and/or guardian regarding the sd2 historical points, exam findings, and any diagnostic results supporting the discharge/admit diagnosis, lab results, the need for outpatient follow up, to return to the emergency department if symptoms worsen or persist or if there are any questions or concerns that arise at home. ED course: Difficulty obtaining IV access or labs. Pt tested positive for COVID. Pt declines lab testing after receiving this result as now she knows the source of her symptoms and would prefer to go home and rest after receiving oral medications for her fever, body aches and nausea. She is nontoxic appearing with stable VS. No clinical signs of dehydration. She is comfortable with plan for discharge and outpatient follow up. Verbalizes understanding of strict return precautions.. 11/21 15:34 Order name: SARS RAPID; Complete Time: 16:30 ap3 11/21 15:34 Order name: Flu; Complete Time: 16:30 ap3 11/21 15:39 Order name: SARS RAPID sd2 11/21 15:39 Order name: EKG - Nurse/Tech; Complete Time: 17:28 sd2 Administered Medications: 16:37 Not Given (Physician Discretion): ondansetron 4 mg IVP once; over 2 minutes ap3 16:37 Not Given (Physician Discretion): ns 0.9% 500 ml IV at bolus once ap3 16:46 Drug: Acetaminophen PO 1000 mg PO once Route: PO; ap3 17:18 Follow up: Response: No adverse reaction; Pain is decreased ap3 16:46 Drug: traMADol PO 50 mg PO once Route: PO; ap3 17:18 Follow up: Response: No adverse reaction; Pain is decreased ap3 16:46 Drug: Ondansetron Oral Disintegrating Tablet Oral Disintegrating Tablet 4 mg PO once ap3 Route: PO; 17:18 Follow up: Response: No adverse reaction ap3 Disposition Summary: 11/22/23 16:44 Discharge Ordered Problem: new sd2 Symptoms: have improved sd2 Condition: Stable sd2 Diagnosis - Coronavirus infection, unspecified sd2 - Body aches sd2 Followup: sd2 - With: Private Physician - When: 2 - 3 days - Reason: Recheck today's complaints, Continuance of care, Re-evaluation by your physician Discharge Instructions: - Discharge Summary Sheet sd2 - COVID-19 sd2 - 10 Things You Can Do to Manage Your COVID-19 Symptoms at Home - [facility] (09/25/2020) sd2 Forms: - Medication Reconciliation Form sd2 - Antibiotic Education sd2 - Prescription Opioid Use sd2 - Patient Portal Instructions sd2 - Leadership Thank You Letter sd2 Signatures: Dispatcher [employer] EDMS Samira Fung, RN ENRIQUE Kanika Ribeiro RN RN ap3 Dunlop, Stephanie, MD MD sd2 Corrections: (The following items were deleted from the chart) 15:14 15:14 PSHx: mass removed from left breast; [facility] 15:14 15:14 PSHx: mass removed from left breast; [facility] 16:45 15:39 CBC+H.LAB.BRZ ordered. EDMS EDMS 16:45 15:39 COMPREHENSIVE METABOLIC PANEL+C.LAB.BRZ ordered. EDMS EDMS 16:45 15:39 Troponin High Sensitivity+C.LAB.BRZ ordered. EDMS EDMS 16:45 15:39 Influenza Screen (A \T\ B)+BA.LAB.BRZ ordered. EDMS EDMS
--- NOTE | 2023-11-22 16:44 | ER ---
Nurse's Notes [facility] Name: Eileen Hernandez Age: 68 yrs Sex: Female : 1955 Arrival Date: 11/22/2023 Time: 14:32 Bed 12 Private MD: Diagnosis: Coronavirus infection, unspecified;Body aches Presentation: 11/21 15:13 Chief complaint: Patient states: dizziness, headache, body aches, lower back pain since iw last night. Coronavirus screen: Client presents with at least one sign or symptom that may indicate coronavirus-19. Ebola Screen: No symptoms or risks identified at this time. 15:13 Method Of Arrival: Wheelchair iw 15:13 Acuity: SRIRAM 3 iw 15:13 Initial Sepsis Screen: Does the patient meet any 2 criteria? No. Patient's initial iw sepsis screen is negative. Does the patient have a suspected source of infection? No. Patient's initial sepsis screen is negative. Risk Assessment: Do you want to hurt yourself or someone else? Patient reports no desire to harm self or others. Onset of symptoms was November 21, 2023. Historical: - Allergies: 15:14 Codeine; iw 15:14 Iodine; iw 15:14 Naproxen; iw 15:14 Red Dye; iw 15:14 Ibuprofen; iw - PMHx: 15:14 diabetes mellitus; Hypercholesterolemia; Hypertensive disorder; Pancreatitis; iw - PSHx: 15:14 Cholecystectomy; Appendectomy; mass removed from left breast; partial removal of iw pancreas; Tonsillectomy; - Immunization history:: Adult Immunizations up to date. - Infectious Disease History:: Denies. - Social history:: Smoking status: Patient denies any tobacco usage or history of. Screenin:32 Abuse screen: Denies threats or abuse. Nutritional screening: No deficits noted. ap3 Tuberculosis screening: No symptoms or risk factors identified. 17:17 [facility] ED Fall Risk Assessment (Adult) History of falling in the last 3 months, ap3 including since admission No falls in past 3 months (0 pts) Confusion or Disorientation No (0 pts) Intoxicated or Sedated No (0 pts) Impaired Gait No (0 pts) Mobility Assist Device Used No (0 pt) Altered Elimination No (0 pt) Score/Fall Risk Level 0 - 2 = Low Risk Oriented to surroundings, Maintained a safe environment, Educated pt \T\ family on fall prevention, incl call for assistance when getting out of bed, Assessed \T\ reinforced patient's understanding of fall precautions, Hourly rounding (assess needs \T\ fall precautionary measures) done, Used ambulatory aids as needed (educated on \T\ assisted with), Used gait belt as appropriate. Assessment: 15:31 General: Appears uncomfortable, Behavior is calm, cooperative, appropriate for age. ap3 Pain: Complains of pain in back and neck Pain currently is 9 out of 10 on a pain scale. Neuro: Level of Consciousness is awake, alert, obeys commands, Oriented to person, place, time, situation, Appropriate for age. Cardiovascular: Patient's skin is warm and dry. Respiratory: Airway is patent Respiratory effort is even, unlabored, Respiratory pattern is regular, symmetrical. 17:18 Reassessment: Patient and/or family updated on plan of care and expected duration. Pain ap3 level reassessed. Patient is alert, oriented x 3, equal unlabored respirations, skin warm/dry/pink. General: Appears in no apparent distress. Behavior is calm, cooperative, appropriate for age. Vital Signs: 15:13 BP 157 / 66; Pulse 97; Resp 18; Temp 97.6; Pulse Ox 98% on R/A; Weight 49.44 kg; Height iw 4 ft. 10 in. ; Pain 9/10; 15:31 Pulse 92; Resp 18; Temp 100.2(O); Pulse Ox 98% on R/A; ap3 17:28 Pulse 86; Resp 18; Temp 99.4; ap3 15:13 Body Mass Index 22.78 (49.44 kg, 147.32 cm) iw 15:13 Pain Scale: Adult iw ED Course: 14:34 Patient arrived in ED. mr 15:13 Triage completed. iw 15:14 Arm band placed on. iw 15:16 La Spivey MD is Attending Physician. sd2 15:32 Patient has correct armband on for positive identification. Bed in low position. Call ap3 light in reach. Side rails up X 1. Provided Education on: call light use. Pulse ox on. NIBP on. 15:34 Kanika Ribeiro, ENRIQUE is Primary Nurse. ap3 15:48 Flu Sent. ap3 15:48 SARS RAPID Sent. ap3 16:36 Initial lab(s) drawn, by me, sent to lab. Missed attempt(s): 24 gauge in right bc6 antecubital area. Bleeding controlled, band aid applied, catheter tip intact. 17:17 No provider procedures requiring assistance completed. IV discontinued, intact, ap3 bleeding controlled, No redness/swelling at site. Pressure dressing applied. 17:28 EKG done, by ED staff, reviewed by La Spivey MD. ap3 Administered Medications: 16:37 Not Given (Physician Discretion): ondansetron 4 mg IVP once; over 2 minutes ap3 16:37 Not Given (Physician Discretion): ns 0.9% 500 ml IV at bolus once ap3 16:46 Drug: Acetaminophen PO 1000 mg PO once Route: PO; ap3 17:18 Follow up: Response: No adverse reaction; Pain is decreased ap3 16:46 Drug: traMADol PO 50 mg PO once Route: PO; ap3 17:18 Follow up: Response: No adverse reaction; Pain is decreased ap3 16:46 Drug: Ondansetron Oral Disintegrating Tablet Oral Disintegrating Tablet 4 mg PO once ap3 Route: PO; 17:18 Follow up: Response: No adverse reaction ap3 Medication: 17:18 VIS not applicable for this client. ap3 Outcome: 16:44 Discharge ordered by . sd2 17:17 Condition: good ap3 17:40 Discharged to home ambulatory, with family, ap3 17:40 Discharge instructions given to patient, family, Instructed on discharge instructions, follow up and referral plans. 17:40 Patient left the ED. ap3 Signatures: Joyce Marin, Reg Reg mr Samira Fung RN RN iw Kanika Ribeiro RN RN ap3 La Spivey MD MD sd2 Kylee Grider [facility] Corrections: (The following items were deleted from the chart) 15:14 15:14 PSHx: mass removed from left breast; iw iw 15:14 15:14 PSHx: mass removed from left breast; iw iw 15:34 15:31 Pulse 92bpm; Resp 98bpm; Temp 100.2F Oral; ap3 ap3 15:34 15:31 Pulse 92bpm; Pulse Ox 98% RA; Temp 100.2F Oral; ap3 ap3 16:45 16:36 Troponin High Sensitivity+C.LAB.BRZ drawn and sent. 6 EDMS 1645 16:36 COMPREHENSIVE METABOLIC PANEL+C.LAB.BRZ drawn and sent. 6 EDMS 45 16:36 CBC+H.LAB.BRZ drawn and sent. 6 EDMS
[2023-11-22 18:01] VITALS: BP 157/66; O2SAT 98
[2023-11-22 18:05] VITALS: TEMP 99.4
--- NOTE | 2023-11-27 13:06 | EKG ---
Test Date: 2023-11-22 Test Time: 17:24:55 Merchandise Worker: ALP MEASUREMENT RESULTS: Intervals: Rate: 87 NM: 170 QRSD: 80 QT: 356 QTc: 428 [place]: P: 61 NM: 170 QRS: 18 T: 52 INTERPRETIVE STATEMENTS: Normal sinus rhythm Nonspecific T wave abnormality Abnormal ECG Compared to ECG 11/17/2022 22:39:16 T-wave abnormality now present Electronically Signed On 11-27-23 12:52:11 CDT by Dave Rivers
== END 2023-11-22 17:40 | disposition home or self-care (01) ==
LOC: ER 14:32
DX: U07.1 COVID-19 (principal); M79.10 Myalgia, unspecified site; E11.9 Type 2 diabetes mellitus without complications; I10 Essential (primary) hypertension
CPT/HCPCS: 93005; 36415; 87804 ×2; 99284; 87811; Q0162

== ENCOUNTER 2024-05-16 18:36 | Emergency (ER) | payer OTHER ==
[2024-05-16] MEDS ORDERED: DICYCLOMINE HCL 20 MG/2 ML AMP IM ONE (20:25)
[2024-05-16] MEDS ORDERED: ONDANSETRON 4 MG/2 ML VIAL ONE (20:25)
[2024-05-16] MEDS ORDERED: METOCLOPRAMIDE 10 MG/2mL INJ ONE (20:26)
[2024-05-16] MEDS ORDERED: MORPHINE 4 MG/ML SYR ONE (20:26)
[2024-05-16] MEDS ORDERED: NA CHLORIDE 0.9% 1,000 ML ONE (20:27)
[2024-05-16 21:22] LABS: Absolute Basophils 0.1 K/uL (0-0.5); Absolute Eosinophils 0.3 K/uL (0-0.5); Absolute Lymphocytes (CBC) 1.5 K/uL (0.7-4.9); Absolute Monocytes 0.4 K/uL (0.1-1.3); Absolute Neutrophil 3.2 K/uL (1.8-8.0); Basophils % 1.3 % (0-1.3); Eosinophils % 5.3 % (0-4.4); Hematocrit 27.1 % (36.0-45.0); Hemoglobin 9.4 g/dL (12.0-15.0); Lymphocytes % 27.3 % (15.3-44.8); MCH 32.8 pg (27.0-35.0); MCHC 34.8 g/dL (32.0-36.0); MCV 94.1 fL (80-100); MPV 8.4 fL (7.6-11.3); Monocytes % 7.6 % (3.3-12.3); Neutrophils % 58.5 % (41.7-73.7); Nucleated Red Blood Cells % 0.1 % (0-0); Platelets 205 thou/uL (152-406); RBC Red Blood Cell Count 2.88 M/uL (3.86-4.86); Red Cell Distribution Width 13.9 % (12.1-15.2)
[2024-05-16] MEDS ORDERED: ONDANSETRON 4 MG (ODT) TAB ONE (21:48)
--- NOTE | 2024-05-16 22:20 | RAD REPORT ---
EXAM: CT CHEST, ABDOMEN AND PELVIS WITHOUT CONTRAST CLINICAL INDICATION: Female, 68 years old. ABDOMINAL DISTENTION. Epigastric pain TECHNIQUE: CT chest, abdomen and pelvis was performed, without IV contrast, as per department protoco l. Axial, sagittal and coronal reconstructions were obtained. One or more of the following dose reduction techniques were used: Automated exposure control, adjustment of the mA and/or kV according to the patient size, and/or iterative reconstruction. Unless otherwise specified, incidental findings do not require dedicated imaging follow-up. COMPARISON: No prior exam. FINDINGS: The lack of intravenous contrast limits the sensitivity of this exam for evaluation of solid visceral organs, vascular structures, and retroperitoneum. Chest: LOWER NECK/CHEST WALL: Visualized thyroid gland and soft tissues are normal. LUNGS AND AIRWAYS: Airways are clear. No evidence of airspace or interstitial process. No nodules. PLEURA: No pleural effusion. No pneumothorax. Hemidiaphragms are normally positioned. MEDIASTINUM AND LYMPH NODES: No mediastinal mass or fluid collection. Normal size mediastinal, hilar, and axillary lymph nodes. THORACIC AORTA: Normal caliber and configuration. PULMONARY ARTERIES: Normal caliber. HEART: Not enlarged. Mild pericardial effusion. Abdomen/Pelvis LIVER: Normal in size and contour. No focal lesion. GALLBLADDER/BILE DUCTS: Status post cholecystectomy. PANCREAS: Smooth contour diffuse enlargement of the pancreas, without significant adjacent inflammato ry changes. No mass, ductal dilation, or anthony-pancreatic fluid. SPLEEN: Normal size. No focal lesion. ADRENALS: Normal; no mass. KIDNEYS AND URETERS: Normal size and contour. No hydronephrosis. GASTROINTESTINAL TRACT: Wall prominence along segments of the mid small bowel, with prominence of the vasa recta and edema of the leading mesentery. No significant distention. Stomach is non-dilated. Small bowel has normal course and caliber. No colonic wall thickening or pericolonic inflammatory emely nges. PERITONEUM: No free fluid. LYMPH NODES: No lymphadenopathy. ABDOMINAL AORTA AND OTHER VESSELS: Normal caliber aorta and IVC. URINARY BLADDER: Normal contour. REPRODUCTIVE ORGANS: No pathologic process. MUSCULOSKELETAL: No acute or suspicious osseous abnormality. ADDITIONAL FINDINGS: Left para midline hernia containing fat and trace fluid just below the level of the umbilicus, measuring 8.6 cm in greatest transverse diameter. IMPRESSION: Segmental wall prominence of the mid small bowel with edema of the leading mesentery and prominence o f the vasa recta. Findings may reflect infectious or inflammatory ileitis. Inflammatory bowel disease not entirely excluded. Mild free pelvic ascites. Smooth contour diffuse enlargement of the pancreas, a finding that can be seen in the setting of mild or prior attacks of autoimmune pancreatitis in the appropriate clinical setting. Other incidental findings as above.
[2024-05-16 22:21] LABS: Blood Morphology Comment NOTED (NOT SEEN); Platelet Estimate ADEQ; White Blood Cell Scan OK (OK)
[2024-05-16] MEDS ORDERED: CEFTRIAXONE 1000 MG/VIAL ONE (22:52)
[2024-05-16] MEDS ORDERED: NA CHLORIDE 0.9% 50 ML ONE (22:52)
[2024-05-16 23:00] LABS: Albumin/Globulin Ratio 0.8 (1.1-1.8); Anion Gap 11.5 mEq/L (5.0-15.0); Bilirubin Total 0.3 mg/dL (0.2-1.0); Globulin 2.4 g/dL (2.3-3.5); Potassium 3.5 mEq/L (3.5-5.1); Protein, Total 4.4 g/dL (6.4-8.2)
--- NOTE | 2024-05-16 23:52 | EDPHYS ---
Physician Documentation [facility] Name: Eileen Hernandez Age: 68 yrs Sex: Female : 1955 Arrival Date: 05/16/2024 Time: 18:36 Bed 18 Private MD: ED Physician Navdeep Aguirre HPI: 05/16 20:06 This 68 yrs old Female presents to ER via Ambulatory with complaints of sp4 Vomiting, Abdominal Pain. 20:16 Patient with history of chronic pancreatitis history of [place] procedure, also known sp4 as lateral pancreaticojejunostomy . Historical: - Allergies: 19:33 Codeine; jj7 19:33 Ibuprofen; jj7 19:33 Iodine; jj7 19:33 Naproxen; jj7 19:33 Red Dye; jj7 - PMHx: 19:33 diabetes mellitus; Hypercholesterolemia; Hypertensive disorder; Pancreatitis; jj7 - PSHx: 19:33 Appendectomy; Cholecystectomy; mass removed from left breast; partial removal of jj7 pancreas; Tonsillectomy; - Immunization history:: Adult Immunizations not up to date, Flu vaccine is up to date. - Infectious Disease History:: Denies. - Social history:: Smoking status: Patient denies any tobacco usage or history of. Patient/guardian denies using alcohol, street drugs, IV drugs. - Family history:: not pertinent. ROS: 05/17 05:27 Constitutional: Negative for fever, chills, and weight loss, positive for abdominal sp4 pain and several episodes of vomiting All other systems are negative, Exam: 05:27 Constitutional: This is a well developed, well nourished patient who is awake, alert, sp4 and in no acute distress. Head/Face: Normocephalic, atraumatic. Eyes: Pupils equal round and reactive to light, extra-ocular motions intact. Lids and lashes normal. Conjunctiva and sclera are not injected. Cornea within normal limits. Periorbital areas with no swelling, redness, or edema. ENT: Nares patent. No nasal discharge, no septal abnormalities noted. Tympanic membranes are normal and external auditory canals are clear. Oropharynx with no redness, swelling, or masses, exudates, or evidence of obstruction, uvula midline. Mucous membranes moist. Neck: Trachea midline, no thyromegaly or masses palpated, and no cervical lymphadenopathy. Supple, full range of motion without nuchal rigidity, or vertebral point tenderness. Chest/axilla: Normal chest wall appearance and motion. Nontender with no deformity. No lesions are appreciated. Cardiovascular: Regular rate and rhythm with a normal S1 and S2. No gallops, murmurs, or rubs. Normal PMI, no JVD. No pulse deficits. Respiratory: Lungs have equal breath sounds bilaterally, clear to auscultation and percussion. No rales, rhonchi or wheezes noted. No increased work of breathing, no retractions or nasal flaring. Abdomen/GI: Soft, with normal bowel sounds. No distension or tympany. No guarding or rebound. No evidence of tenderness throughout. Back: No spinal tenderness. No costovertebral tenderness. Skin: Warm, dry with normal turgor. Normal color with no rashes, no lesions, and no evidence of cellulitis. MS/ Extremity: Pulses equal, no cyanosis. Neurovascular intact. Full, normal range of motion. Neuro: Awake and alert, GCS 15, oriented to person, place, time, and situation. Cranial nerves II-XII grossly intact. Motor strength 5/5 in all extremities. Sensory grossly intact. Psych: Awake, alert, with orientation to person, place and time. Behavior, mood, and affect are within normal limits Vital Signs: 05/16 19:29 BP 136 / 65; Pulse 71; Resp 18; Temp 97.2; Pulse Ox 100% ; Weight 49.44 kg; Height 4 7 ft. 10 in. ; Pain 8/10; 20:00 BP 149 / 61; Pulse 69; Resp 16; Pulse Ox 99% on R/A; ay 21:00 BP 152 / 60; Pulse 65; Resp 17; Pulse Ox 100% ; ay 22:00 BP 138 / 58; Pulse 66; Resp 18; Pulse Ox 99% ; ay 23:30 BP 133 / 58; Pulse 61; Resp 20; Pulse Ox 97% ; ay 19:29 Body Mass Index 22.78 (49.44 kg, 147.32 cm) [facility] 19:29 Pain Scale: Adult [facility] [place] Coma Score: 19:45 Eye Response: spontaneous(4). Motor Response: obeys commands(6). Verbal Response: ay oriented(5). Total: 15. 05/17 05:27 Eye Response: spontaneous(4). Motor Response: obeys commands(6). Verbal Response: sp4 oriented(5). Total: 15. MDM: 05/16 20:08 Medical Screening Exam initiated sp4 23:49 ED course: EXAM: CT CHEST, ABDOMEN AND PELVIS WITHOUT CONTRAST CLINICAL INDICATION: sp4 Female, 68 years old. ABDOMINAL DISTENTION. Epigastric pain TECHNIQUE: CT chest, abdomen and pelvis was performed, without IV contrast, as per department protocol. Axial, sagittal and coronal reconstructions were obtained. One or more of the following dose reduction techniques were used: Automated exposure control, adjustment of the mA and/or kV according to the patient size, and/or iterative reconstruction. Unless otherwise specified, incidental findings do not require dedicated imaging follow-up. COMPARISON: No prior exam. FINDINGS: The lack of intravenous contrast limits the sensitivity of this exam for evaluation of solid visceral organs, vascular structures, and retroperitoneum. Chest: LOWER NECK/CHEST WALL: Visualized thyroid gland and soft tissues are normal. LUNGS AND AIRWAYS: Airways are clear. No evidence of airspace or interstitial process. No nodules. PLEURA: No pleural effusion. No pneumothorax. Hemidiaphragms are normally positioned. MEDIASTINUM AND LYMPH NODES: No mediastinal mass or fluid collection. Normal size mediastinal, hilar, and axillary lymph nodes. THORACIC AORTA: Normal caliber and configuration. PULMONARYARTERIES: Normal caliber. HEART: Not enlarged. Mild pericardial effusion. Abdomen/Pelvis LIVER: Normal in size and contour. No focal lesion. GALLBLADDER/BILE DUCTS: Status post cholecystectomy. PANCREAS: Smooth contour diffuse enlargement of the pancreas, without significant adjacent inflammatory changes. No mass, ductal dilation, or anthony-pancreatic fluid. SPLEEN: Normal size. No focal lesion. ADRENALS: Normal; no mass. KIDNEYS AND URETERS: Normal size and contour. No hydronephrosis. GASTROINTESTINAL TRACT: Wall prominence along segments of the mid small bowel, with prominence of the vasa recta and edema of the leading mesentery. No significant distention. Stomach is nondilated. Small bowel has normal course and caliber. No colonic wall thickening or pericolonic inflammatory changes. PERITONEUM: No free fluid. LYMPH NODES: No lymphadenopathy. ABDOMINAL AORTA AND OTHER VESSELS: Normal caliber aorta and IVC. URINARYBLADDER: Normal contour. REPRODUCTIVE ORGANS: No pathologic process. MUSCULOSKELETAL: No acute or suspicious osseous abnormality. ADDITIONAL FINDINGS: Left para midline hernia containing fat and trace fluid just below the level of the umbilicus, measuring 8.6 cm in greatest transverse diameter. IMPRESSION: Segmental wall prominence of the mid small bowel with edema of the leading mesentery and prominence of the vasa recta. Findings may reflect infectious or inflammatory ileitis. Inflammatory bowel disease not entirely excluded. Mild free pelvic ascites. Smooth contour diffuse enlargement of the pancreas, a finding that can be seen in the setting of mild or prior attacks of autoimmune pancreatitis in the appropriate clinical setting. Other incidental findings as above. . 05/17 05:27 Differential diagnosis: Nonspecific abd pain, gastritis, diverticulitis, viral sp4 gastroenteritis, gastroenteritis. Data reviewed: vital signs, nurses notes, lab test result(s), radiologic studies, CT scan. Consideration of Admission/Observation Escalation of care including admission/observation considered. ED course: CT report has revealed signs of infectious or inflammatory ileitis. Patient stable for discharge home symptomatic management.. 05/16 19:41 Order name: CBC with Diff; Complete Time: 22:26 sb4 05/16 19:41 Order name: CMP; Complete Time: 23:33 sb4 05/16 19:41 Order name: Lipase; Complete Time: 23:33 sb4 05/16 22:21 Order name: CBC Smear Scan; Complete Time: 22:26 EDMS 05/16 20:15 Order name: CT Chest Abdomen Pelvis W/O Contrast; Complete Time: 22:26 sp4 05/16 19:41 Order name: IV Saline Lock; Complete Time: 23:37 sb4 05/16 19:41 Order name: Labs collected and sent; Complete Time: 23:37 sb4 05/16 21:27 Order name: Misc. Order: recollect green top; Complete Time: 23:37 vk Administered Medications: 05/16 20:53 Drug: Dicyclomine IM 20 mg IM once Route: IM; Site: right deltoid; ay 23:36 Follow up: Response: No adverse reaction ay 22:07 Not Given (Duplicate Order): ondansetron8 mg PO once ay 22:08 Drug: morphine IVP or IV 4 mg IVP once over 4 mins Route: IVP; Infused Over: 4 mins; ay Site: left antecubital; 23:37 Follow up: Response: No adverse reaction ay 22:08 Drug: NS 0.9% IV 1000 ml IV at 1 bolus Per protocol; to be given as a bolus over 60 ay minutes Route: IV; Rate: 1 bolus; Site: left antecubital; 05/17 00:19 Follow up: IV Status: Completed infusion ay 05/16 22:08 Drug: Ondansetron IVP 8 mg IVP once; over 2 minutes Route: IVP; Site: left antecubital; ay 23:37 Follow up: Response: No adverse reaction ay 22:08 Drug: metoCLOPramide IVP 10 mg IVP once; over 1 to 2 minutes Route: IVP; Site: left ay antecubital; 23:36 Follow up: Response: No adverse reaction ay 23:06 Drug: Rocephin - Rocephin (cefTRIAXone) IVPB 1 grams IVPB once over 30 mins; (mix in 50 ay mL NS) Route: IVPB; Infused Over: 30 mins; Site: left antecubital; 05/17 00:19 Follow up: IV Status: Completed infusion ay 00:05 Drug: Promethazine PO 25 mg PO once Route: PO; ay 00:16 Follow up: Response: Medication administered at discharge. ay 00:06 Drug: HYDROcodone-acetaminophen PO 5 mg-325 mg 1 tabs PO once Route: PO; ay 00:17 Follow up: Response: Medication administered at discharge. ay Disposition Summary: 05/16/24 23:51 Discharge Ordered Notes: Location: Home sp4 Problem: new sp4 Symptoms: have improved sp4 Condition: Stable sp4 Diagnosis - Acute viral gastroenteritis, nausea and vomiting, acute ileitis sp4 Followup: sp4 - With: Private Physician - When: 7 - 10 days - Reason: Recheck today's complaints Discharge Instructions: - Discharge Summary Sheet sp4 - Viral Gastroenteritis, Adult, [id number] sp4 - Clear Liquid Diet, Adult, [id number] sp4 Forms: - Patient Portal Instructions sp4 Prescriptions: - Tramadol 50 mg Oral tablet - take 1 tablet ORAL route every 8 hours as needed; 20 tablet; Refills: 0, sp4 Product Selection Permitted - ondansetron 8 mg Oral Tablet,disintegrating - take 1 tablet ORAL route every 8 hours PRN nausea; 30 tablet; Refills: 0, sp4 Product Selection Permitted Signatures: Dispatcher [employer] EDMS Samanta Glover RN RN jj7 Francisca Lynn, PALinda PA-C sb4 Navdeep Aguirre MD MD sp4 Skye Erickson Awudu, RN RN ay Corrections: (The following items were deleted from the chart) 05/16 19:34 19:33 PSHx: mass removed from left breast; jj7 jj7 19:41 19:41 CBC+H.LAB.BRZ ordered. EDMS EDMS 19:41 19:41 COMPREHENSIVE METABOLIC PANEL+C.LAB.BRZ ordered. EDMS EDMS 19:41 19:41 LIPASE+C.LAB.BRZ ordered. EDMS EDMS 20:15 20:15 Chest Abdomen Pelvis Wo Con+CT.RAD.BRZ ordered. EDMS EDMS
--- NOTE | 2024-05-16 23:52 | ER ---
Nurse's Notes [facility] Name: Eileen Hernandez Age: 68 yrs Sex: Female : 1955 Arrival Date: 05/16/2024 Time: 18:36 Bed 18 Private MD: Diagnosis: Acute viral gastroenteritis, nausea and vomiting, acute ileitis Presentation: 05/16 19:29 Chief complaint: Patient states: EPIGASTRIC PAIN STARTED SUDDENLY TONIGHT AFTER EATING jj7 FELT NAUSEATED AND VOMITED X2. HEADACHE ALSO STARTED TONIGHT. Coronavirus screen: At this time, the client does not indicate any symptoms associated with coronavirus-19. Ebola Screen: No symptoms or risks identified at this time. Initial Sepsis Screen: Does the patient meet any 2 criteria? No. Patient's initial sepsis screen is negative. Does the patient have a suspected source of infection? No. Patient's initial sepsis screen is negative. Risk Assessment: Do you want to hurt yourself or someone else? Patient reports no desire to harm self or others. Note TOOK TYLENOL FOR HEADACHE. Onset of symptoms was May 16, 2024. 19:29 Method Of Arrival: Ambulatory [facility] 19:29 Acuity: SRIRAM 3 jj7 Triage Assessment: 19:33 General: Appears in no apparent distress. uncomfortable, Behavior is calm, cooperative, jj7 appropriate for age. Pain: Complains of pain in epigastric area Pain currently is 8 out of 10 on a pain scale. GI: Reports epigastric pain, nausea, vomiting. Historical: - Allergies: 19:33 Codeine; jj7 19:33 Ibuprofen; jj7 19:33 Iodine; jj7 19:33 Naproxen; jj7 19:33 Red Dye; jj7 - PMHx: 19:33 diabetes mellitus; Hypercholesterolemia; Hypertensive disorder; Pancreatitis; jj7 - PSHx: 19:33 Appendectomy; Cholecystectomy; mass removed from left breast; partial removal of jj7 pancreas; Tonsillectomy; - Immunization history:: Adult Immunizations not up to date, Flu vaccine is up to date. - Infectious Disease History:: Denies. - Social history:: Smoking status: Patient denies any tobacco usage or history of. Patient/guardian denies using alcohol, street drugs, IV drugs. - Family history:: not pertinent. Screenin:45 [facility] ED Fall Risk Assessment (Adult) History of falling in the last 3 months, ay including since admission No falls in past 3 months (0 pts) Confusion or Disorientation No (0 pts) Intoxicated or Sedated No (0 pts) Impaired Gait No (0 pts) Mobility Assist Device Used No (0 pt) Altered Elimination No (0 pt) Score/Fall Risk Level 0 - 2 = Low Risk Oriented to surroundings, Maintained a safe environment, Educated pt \T\ family on fall prevention, incl call for assistance when getting out of bed. Abuse screen: Denies threats or abuse. Nutritional screening: No deficits noted. Tuberculosis screening: No symptoms or risk factors identified. Assessment: 19:45 General: Appears in no apparent distress. uncomfortable, Behavior is calm, cooperative. ay Pain: Complains of pain in abdomen and epigastric area Pain radiates to LUQ Pain currently is 8 out of 10 on a pain scale. Quality of pain is described as burning. Neuro: Level of Consciousness is awake, alert, obeys commands, Oriented to person, place, time, situation, Speech is normal. Cardiovascular: Reports nausea, vomiting, Denies chest pain, shortness of breath. Respiratory: Airway is patent Respiratory effort is even, unlabored, Respiratory pattern is regular, symmetrical. GI: Abdomen is flat, Abd is soft X 4 quads Abdomen is tender to palpation in epigastric area and left upper quadrant. : No signs and/or symptoms were reported regarding the genitourinary system. EENT: No signs and/or symptoms were reported regarding the EENT system. Derm: No signs and/or symptoms reported regarding the dermatologic system. Vital Signs: 19:29 BP 136 / 65; Pulse 71; Resp 18; Temp 97.2; Pulse Ox 100% ; Weight 49.44 kg; Height 4 jj7 ft. 10 in. ; Pain 8/10; 20:00 BP 149 / 61; Pulse 69; Resp 16; Pulse Ox 99% on R/A; ay 21:00 BP 152 / 60; Pulse 65; Resp 17; Pulse Ox 100% ; ay 22:00 BP 138 / 58; Pulse 66; Resp 18; Pulse Ox 99% ; ay 23:30 BP 133 / 58; Pulse 61; Resp 20; Pulse Ox 97% ; ay 19:29 Body Mass Index 22.78 (49.44 kg, 147.32 cm) j7 19:29 Pain Scale: Adult j7 [place] Coma Score: 19:45 Eye Response: spontaneous(4). Motor Response: obeys commands(6). Verbal Response: ay oriented(5). Total: 15. 05/17 05:27 Eye Response: spontaneous(4). Motor Response: obeys commands(6). Verbal Response: sp4 oriented(5). Total: 15. ED Course: 05/16 18:40 Patient arrived in ED. mr 19:33 Triage completed. jj7 19:33 Arm band placed on right wrist. j7 20:06 Navdeep Aguirre MD is Attending Physician. sp4 20:18 Zulma Valenzuela RN is Primary Nurse. ay 21:23 CT Chest Abdomen Pelvis W/O Contrast In Process Unspecified. EDMS 21:53 Accessed peripheral vein via ultrasound, utilizing dynamic ultrasound technique Clean \T\ cm10 dry. Dressing intact. Good blood return. Flushes easily. 22g elft forearm. 05/17 00:17 IV discontinued, intact, bleeding controlled, No redness/swelling at site. Pressure ay dressing applied. Administered Medications: 05/16 20:53 Drug: Dicyclomine IM 20 mg IM once Route: IM; Site: right deltoid; ay 23:36 Follow up: Response: No adverse reaction ay : Not Given (Duplicate Order): ondansetron8 mg PO once ay 22:08 Drug: morphine IVP or IV 4 mg IVP once over 4 mins Route: IVP; Infused Over: 4 mins; ay Site: left antecubital; 23:37 Follow up: Response: No adverse reaction ay : Drug: NS 0.9% IV 1000 ml IV at 1 bolus Per protocol; to be given as a bolus over 60 ay minutes Route: IV; Rate: 1 bolus; Site: left antecubital; 05/17 00:19 Follow up: IV Status: Completed infusion ay 05/16 22:08 Drug: Ondansetron IVP 8 mg IVP once; over 2 minutes Route: IVP; Site: left antecubital; ay 23:37 Follow up: Response: No adverse reaction ay 22: Drug: metoCLOPramide IVP 10 mg IVP once; over 1 to 2 minutes Route: IVP; Site: left ay antecubital; 23:36 Follow up: Response: No adverse reaction ay 23:06 Drug: Rocephin - Rocephin (cefTRIAXone) IVPB 1 grams IVPB once over 30 mins; (mix in 50 ay mL NS) Route: IVPB; Infused Over: 30 mins; Site: left antecubital; 05/17 00:19 Follow up: IV Status: Completed infusion ay 00:05 Drug: Promethazine PO 25 mg PO once Route: PO; ay 00:16 Follow up: Response: Medication administered at discharge. ay 00:06 Drug: HYDROcodone-acetaminophen PO 5 mg-325 mg 1 tabs PO once Route: PO; ay 00:17 Follow up: Response: Medication administered at discharge. ay Outcome: 05/16 23:51 Discharge ordered by MD. barron 05/17 00:17 Discharged to home ambulatory, ay Condition: stable Discharge instructions given to patient, Instructed on discharge instructions, follow up and referral plans. Demonstrated understanding of instructions, follow-up care, medications, Prescriptions given X 2, 00:20 Patient left the ED. ay Signatures: Dispatcher [employer] EDAK Joyce Marin, Reg Reg mr GloverSamanta RN RN jj7 Navdeep Aguirre MD MD sp4 Peggy Lynne RN RN cm10 Zulma Valenzuela RN RN ay Corrections: (The following items were deleted from the chart) 05/16 19:34 19:33 PSHx: mass removed from left breast; jj7 jj7
[2024-05-16] MEDS ORDERED: PROMETHAZINE 25 MG TABLET ONE (23:58)
[2024-05-16] MEDS ORDERED: HYDROCODONE/APAP 5/325 MG TAB ONE (23:59)
[2024-05-17 00:24] VITALS: TEMP 97.2
[2024-05-17 00:29] VITALS: BP 133/58; O2SAT 97
== END 2024-05-17 00:20 | disposition home or self-care (01) ==
LOC: ER 18:36
DX: A08.4 Viral intestinal infection, unspecified (principal); K52.9 Noninfective gastroenteritis and colitis, unspecified
CPT/HCPCS: 96365; 96361; 85025; 36415; 83690; 80053; 71250; 74176; 96375; 96372; 99284; Q0169; J2765; J0500; J2405; J7030; J0696; Q0162

== ENCOUNTER 2025-01-02 08:16 | Day surgery (SDC) | payer OTHER ==
[2024-12-30 11:06] LABS: Absolute Lymphocytes (CBC) 1.4 K/uL (0.7-4.9); Hematocrit 28.6 % (36.0-45.0); Hemoglobin 9.8 g/dL (12.0-15.0); MCH 32.5 pg (27.0-35.0); MCHC 34.4 g/dL (32.0-36.0); MCV 94.5 fL (80-100); MPV 7.6 fL (7.6-11.3); Nucleated RBC Absolute Count 0.0 (0-0); Nucleated Red Blood Cells % 0.1 % (0-0); RBC Red Blood Cell Count 3.03 M/uL (3.86-4.86); White Blood Count 5.50 thou/uL (4.3-10.9)
[2024-12-30 11:10] LABS: Anion Gap 7.5 mEq/L (5.0-15.0); BUN Blood Urea Nitrogen 43.0 mg/dL (7-18); Glucose Level 88.0 mg/dL (74-106); Potassium 5.5 mEq/L (3.5-5.1)
[2025-01-02] MEDS: Ringers Lactate 1,000 ML IV ONE (08:47)
[2025-01-02] MEDS ORDERED: ONDANSETRON 4 MG/2 ML VIAL ONE (09:41)
[2025-01-02] MEDS ORDERED: LIDOCAINE 2% MPF 5 ML VIAL ONE (09:41)
[2025-01-02] MEDS ORDERED: FENTANYL CITR 100 MCG/2 ML ONE (09:41)
[2025-01-02] MEDS ORDERED: MIDAZOLAM HCL 2 MG/2 ML INJ ONE (09:52)
[2025-01-02] MEDS ORDERED: EPHEDRINE SULF 50 MG/ML VIAL ONE (10:04)
[2025-01-02] MEDS ORDERED: GLYCOPYRROLATE 0.2 MG/ML SYR ONE (10:04)
[2025-01-02] MEDS: LIDOCAINE HCL/EPINEPHRINE 20 ML MDV ONE (10:21)
[2025-01-02] MEDS: HYDROMORPHONE HCL 1 MG/ML INJ ONE ×2 (10:56→11:16)
[2025-01-02] MEDS ORDERED: HYDROCODONE/APAP 5/325 MG TAB PO ONE (11:56)
[2025-01-02] MEDS ORDERED: HYDROCODONE/APAP 5/325 MG TAB ONE (11:57)
[2025-01-02] MEDS: HYDROCODONE/APAP 5/325 MG TAB PO ONE (12:02)
[2025-01-02 12:08] VITALS: BP 128/54; TEMP 97.1; O2SAT 99
[2025-01-02] MEDS: HYDROCODONE/APAP 5/325 MG TAB ONE (12:35)
--- NOTE | 2025-01-02 19:36 | OP ---
Date of Procedure: 01/02/2025 Surgeon: Sharyn Koroma MD Preoperative Diagnosis: Pelvic pain. Postoperative Diagnosis: Pelvic pain. Procedures Performed: Diagnostic hysteroscopy, D and C. Anesthesia: General with LMA. Specimens: Endometrial curettings. Findings: Endometrial cavity was thin. Both tubal ostia were well visualized. No intracavitary brenda yps were noted. Specimen: Endometrial curettings. Condition: The patient's condition stable. Complications: No complications. Drains: No drains. Estimated Blood Loss: Minimal, less than 5. Anesthesia: General with LMA and intracervical block. Indications: The patient is a 69-year-old presented with pelvic pain. Transvaginal ultrasound showe d endometrial canal with fluid inside it, so no adnexal masses were noted. She was offered hysterosc opic sampling as the patient had allergy to NSAIDs. It was difficult for her to proceed with a proce dure in the office and so she was consented for the endometrial sampling hysteroscopy at the hospital . Bleeding, infection, perforation, risks were reviewed, consented, brought to the hospital in preop erative area. Description Of Procedure: She was re-consented, taken back to the OR, placed in supine fashion on th e operating table. After general anesthesia was given, she was placed in dorsal lithotomy position. ChloraPrep was used for prep on the vulva, vagina, and perineum. Speculum was placed to expose the cervix. Anterior lip grasped with a single-tooth tenaculum after injecting with 3 mL of 1% lidocaine with epinephrine. Then, the hysteroscope was taken and through the cervical canal, traversed under direct visualization into the uterine cavity. Both tubal ostia were visualized. Cavity appeared to be unremarkable, thin lining. No intracavitary masses. Scope removed. Endometrial curettage was pe rformed and scant sample was retrieved and handed over for permanent pathology. Instruments were rem joy. Instrument, needle, and sponge counts were correct and she was taken to PACU in stable conditi on after recovery from anesthesia. She will follow up in 1 week for pathology results. I believe at it is completely acceptable to observe if the path is negative without any further intervention. SARA/MICHAEL Voice ID: [id number] Report ID: [id number]
== END 2025-01-02 13:26 | disposition home or self-care (01) ==
LOC: OR 08:16
PROVIDERS: ATTEND Obstetrics & Gynecology
PROC: 0UDB8ZX Extraction of Endometrium, Via Natural or Artificial Opening Endoscopic, Diagnostic (ICD-10-PCS; principal; 2025-01-02 09:30)
DX: R10.20 Pelvic and perineal pain unspecified side (principal)
CPT/HCPCS: 85025; 80048; 36415; 88305; 58558; J2704; J2003; J2250; J3010; J1100; J1171 ×2; J2405; J7120